=== PATIENT | male | born 1970 | race Caucasian/White ===

== ENCOUNTER → 2016-07-04 | Outpatient (CLI) | payer OTHER ==
[~2016-07-04] MED LIST: CIPR1TAB11 PO; DTRSR10 PO; FOLI-11 PO; LCTS240 PO; METH2.5T PO; METHTAB2 PO; PRED10TA PO; QUET200T2 PO
[2016-07-04 17:31] LABS: BASO % 0.3 %; BASO ABS # 0.02 K/uL (0-0.2); IG% 0.1 %; LYMPH % 12.5 %; LYMPH ABS # 0.91 K/uL (1.2-3.4); MEAN CELL VOLUME 89.8 fL (80-100); MEAN CORPUSCULAR HEMOGLOBIN 29.8 pg (25-34); MEAN CORPUSCULAR HGB CONC 33.2 g/dl (32-36); MEAN PLATELET VOLUME 11.7 fL (7.4-10.4); NEUT % 77.1 %; PLATELET COUNT 233 K/uL (130-400); RED BLOOD COUNT 4.23 M/uL (4.7-6.1); WHITE BLOOD COUNT 7.26 K/uL (4.8-10.8)
[2016-07-04 17:40] LABS: FERRITIN 279.6 ng/ml (8.0-388.0); MAGNESIUM 1.8 mg/dl (1.8-2.4)
[2016-07-04 22:01] LABS: COMPLETE YES
[2016-07-05 06:12] LABS: ESTIMATED AVERAGE GLUCOSE 134 mg/dl; HA1C FLAG Normal (Normal)
== END | disposition home or self-care (01) ==
LOC: C.LABSPEC 15:46
PROVIDERS: ATTEND Family Medicine
DX: D64.9 Anemia, unspecified (principal); E11.9 Type 2 diabetes mellitus without complications

== ENCOUNTER → 2016-08-13 | Outpatient (CLI) | payer OTHER ==
[2016-08-13 15:14] LABS: ALT/SGPT 29 U/L (12-78); BLOOD UREA NITROGEN 10 mg/dl (7-18); BUN/CREATININE RATIO 17.2 (10-20); CARBON DIOXIDE 25 mmol/L (21-32); CHLORIDE 98 mmol/L (98-107); CREATININE 0.57 mg/dl (0.60-1.40); GLUCOSE 106 mg/dl (70-99); MAGNESIUM 1.7 mg/dl (1.8-2.4); POTASSIUM 3.8 mmol/L (3.5-5.1); SODIUM 134 mmol/L (136-145)
[2016-08-13 15:17] LABS: ALB/GLOB RATIO 1.1 (0.9-2); ALKALINE PHOSPHATASE 58 U/L (45-117); AST/SGOT 13 U/L (15-37)
== END | disposition home or self-care (01) ==
LOC: C.LABSPEC 14:49
PROVIDERS: ATTEND Family Medicine
DX: N31.9 Neuromuscular dysfunction of bladder, unspecified (principal); G82.51 Quadriplegia, C1-C4 complete; E11.9 Type 2 diabetes mellitus without complications; I10 Essential (primary) hypertension; F52.9 Unspecified sexual dysfunction not due to a substance or known physiological condition

== ENCOUNTER → 2016-10-23 | Outpatient (CLI) | payer OTHER ==
[2016-10-23 10:37] LABS: ALT/SGPT 34 U/L (12-78); AST/SGOT 12 U/L (15-37); BLOOD UREA NITROGEN 6 mg/dl (7-18); CALCIUM 9.2 mg/dl (8.5-10.1); CARBON DIOXIDE 28 mmol/L (21-32); CHLORIDE 102 mmol/L (98-107); CREATININE 0.53 mg/dl (0.60-1.40); GLUCOSE 102 mg/dl (70-99); MAGNESIUM 1.9 mg/dl (1.8-2.4); POTASSIUM 3.8 mmol/L (3.5-5.1); SODIUM 139 mmol/L (136-145)
[2016-10-23 10:40] LABS: ALB/GLOB RATIO 1.1 (0.9-2); ALKALINE PHOSPHATASE 64 U/L (45-117)
[2016-10-23 11:01] LABS: ESTIMATED AVERAGE GLUCOSE 143 mg/dl; HA1C FLAG Normal (Normal)
--- NOTE | 2016-10-31 08:36 | CODING QUERY NO DIAGNOSIS ---
Valid Physician Order Needed 70 A valid physician order must be submitted in order to properly bill for the service(s) provided, including date of service(s), valid diagnosis, and physician signature. If these tests are done on a recurring basis the original physician order must be submitted in order to code and bill for the service(s) provided. Please fax us the original, signed physician order so that we may expedite billing to [phone] DOS 10/23/2016 * HEMOGLOBIN A1C * COMP METABOLIC * MAGNESIUM * CALCIUM, IONIZED Thank you [facility]
== END | disposition home or self-care (01) ==
LOC: C.LABSPEC 09:56
PROVIDERS: ATTEND Family Medicine
DX: E11.9 Type 2 diabetes mellitus without complications (principal); I10 Essential (primary) hypertension; G82.51 Quadriplegia, C1-C4 complete; Z43.6 Encounter for attention to other artificial openings of urinary tract

== ENCOUNTER → 2017-09-10 | Outpatient (CLI) | payer OTHER | END | disposition home or self-care (01) | LOC: C.LABSPEC 18:07 | PROVIDERS: ATTEND Family Medicine | DX: Z43.5 Encounter for attention to cystostomy (principal); N31.9 Neuromuscular dysfunction of bladder, unspecified; G82.51 Quadriplegia, C1-C4 complete ==

== ENCOUNTER → 2017-11-04 | Outpatient (CLI) | payer OTHER ==
--- NOTE | 2017-11-04 14:37 | DIAGNOSTIC IMAGING REPORT ---
KUB HISTORY: Follow-up study in a patient with nephrolithiasis N20.0 Calculus of [id number] COMPARISON: KUB 05/23/2008 FINDINGS: The bowel gas pattern is non-obstructive. Moderate stool volume of the left hemicolon. There is no organomegaly. Renal shadows are partially obscured by bowel gas. No definite nephrolithiasis or ureteral calculi are identified. Calcifications of the pelvis are redemonstrated suggesting phleboliths. No pneumoperitoneum or pneumatosis. No fracture. Soft tissue calcification lateral to the left hip measures up to 5.0 x 6.5 cm, not completely imaged. There is moderate joint space narrowing about the bilateral femoral acetabular joints. IMPRESSION: 1. Renal shadows are partially obscured by bowel gas. No definite nephrolithiasis or ureteral calculi identified. 2. Nonobstructive bowel gas pattern. 3. Moderate stool volume of the left hemicolon suggests constipation. Electronically signed by: Rachid Solano M.D. 11/04/2017 2:35 PM Dictated Date/Time: 11/04/2017 2:33 PM
--- NOTE | 2017-11-04 15:11 | DIAGNOSTIC IMAGING REPORT ---
EXAMINATION: RENAL ULTRASOUND CLINICAL HISTORY: N20.0 nephrolithiasis COMPARISON STUDY: 05/23/2008 FINDINGS: The right kidney measures 14.3 cm. The left kidney measures 15.2 cm. There is no evidence of hydronephrosis. There are no renal masses. There is no joint fluid catheter. No bladder lesions were delineated. Bilateral ureteral jets were identified. IMPRESSION : No evidence of hydronephrosis. No renal masses are visualized. Bilateral ureteral jets were demonstrated. Electronically signed by: Sohail Aguayo M.D. 11/04/2017 3:09 PM Dictated Date/Time: 11/04/2017 3:08 PM
== END | disposition home or self-care (01) ==
LOC: C.ULTR 13:56
PROVIDERS: ATTEND Urology
DX: N20.0 Calculus of kidney (principal)

== ENCOUNTER 2018-11-01 21:23 | Inpatient (IN) ==
[2018-11-01] MEDS ORDERED: IBUPROFEN 600 MG TAB PO STA (21:54)
[2018-11-01] MEDS ORDERED: SODIUM CHLORIDE 0.9% 1000ML 1,000 ML IV ONE (22:00)
[2018-11-01] MEDS ORDERED: CEFEPIME 2,000 MG/20 ML VIAL IV STA (22:00)
[2018-11-01 22:34] LABS: Appearance Urine Turbid (Clear); Bacteria Urine Automated 1+ (Negative); Bilirubin Urine Negative (Negative); Blood Urine Negative (Negative); Color Urine Yellow; Epithelial Cell Urine Auto >30 /lpf (0-5); Glucose Urine UA Negative (Negative); Ketones Urine Negative (Negative); Leukocyte Esterase Urine 3+ (Negative); Nitrite Urine Positive (Negative); RBC Urine Automated 0-4 /hpf (0-4); Specific Gravity Urine 1.018 (1.000-1.030); Urobilinogen Urine Negative (Negative); WBC Urine Automated >30 /hpf (0-5); pH Urine 7.5 (4.5-7.5)
[2018-11-01 22:37] LABS: Protein Urine Trace (Negative)
[2018-11-01 22:40] LABS: Basophils # (auto) 0.01 K/uL (0-0.2); Eosinophils # (auto) 0.06 K/uL (0-0.5); Eosinophils % (auto) 0.3 %; Hematocrit (blood only) 34.4 % (42-52); Hemoglobin 11.3 g/dL (14.0-18.0); Immature Granulocytes # (auto) 0.06 K/uL (0.00-0.02); Immature Granulocytes % (auto) 0.3 %; Lymphocytes # (auto) 0.78 K/uL (1.2-3.4); Lymphocytes % (auto) 3.7 %; Mean Corpuscular Hgb Conc 32.8 g/dL (32-36); Mean Platelet Volume 10.5 fL (7.4-10.4); Monocytes # (auto) 1.17 K/uL (0.11-0.59); Monocytes % (auto) 5.6 %; Neutrophils # (auto) 18.95 K/uL (1.4-6.5); Neutrophils % (auto) 90.1 %; Platelet Count 311 K/uL (130-400); RDW Coefficient of Variation 16.4 % (11.5-14.5); RDW Standard Deviation 51.6 fL (36.4-46.3); White Blood Count 21.03 K/uL (4.8-10.8)
[2018-11-01 22:50] LABS: Partial Thromboplastin Time 27.6 Seconds (21.0-31.0); Prothrombin Time 10.3 Seconds (9.0-12.0)
[2018-11-01 22:54] LABS: Albumin Level 2.9 gm/dl (3.4-5.0); BUN Creatinine Ratio 21.2 (10-20); Calcium 8.9 mg/dl (8.5-10.1); Creatinine Clr Calc Pharmacy 157.7 ml/min; Est GFR (African American) 131.7; Est GFR (Non-African American) 113.6; Magnesium 1.6 mg/dl (1.8-2.4); Potassium 3.5 mmol/L (3.5-5.1)
[2018-11-01 22:56] LABS: Albumin Globulin Ratio 0.9 (0.9-2); Bilirubin,Total 0.7 mg/dl (0.2-1); Globulin 3.4 gm/dl (2.5-4.0); Total Protein 6.3 gm/dl (6.4-8.2)
--- NOTE | 2018-11-01 22:57 | XRay Report ---
XR chest 1V portable HISTORY: 48 years-old Male Sepsis acute sepsis COMPARISON: Chest radiograph 05/11/2018 TECHNIQUE: Portable AP view of the chest FINDINGS: Cardiomediastinal and hilar silhouettes are within normal limits. The previously described 1.2 cm nod ular focus of the right upper lung appears to correlate with area of pulmonary vasculature. There is no pneumothorax, pleural effusion, focal airspace consolidation or overt pulmonary edema. Degenerativ e changes of the shoulders and spine. Fusion hardware of the cervical spine. IMPRESSION: No acute process. The above report was generated using voice recognition software. It may contain grammatical, syntax o r spelling errors. Electronically signed by: Rachid Solano M.D. 11/01/2018 10:56 PM
[2018-11-01] MEDS ORDERED: MAGNESIUM OXIDE 400 MG TAB PO STA (22:58)
[2018-11-01] MEDS ORDERED: MAGNESIUM SULFATE / D5W 1 GM/100 ML BAG IV ONE (22:58)
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
[2018-11-02] MEDS ORDERED: CARBOHYDRATES FOR HYPOGLYCEMIA PO PRN (02:34)
[2018-11-02] MEDS ORDERED: DEXTROSE 50% 50 ML SYRINGE IV PRN (02:34)
[2018-11-02] MEDS ORDERED: TRAMADOL HCL 50 MG TABLET PO PRN (02:34)
[2018-11-02] MEDS ORDERED: DICLOFENAC SOD 1% GEL 100 GM TUBE EXT PRN (02:34)
[2018-11-02] MEDS ORDERED: LACTULOSE SYRUP 20 GM/30 ML UDC PO PRN (02:34)
[2018-11-02] MEDS ORDERED: GLUCOSE 10 TABS/TUBE PO PRN (02:34)
[2018-11-02] MEDS ORDERED: GLUCAGON FOR INJ 1 MG VIAL SQ PRN (02:34)
[2018-11-02] MEDS ORDERED: ONDANSETRON INJ 2 MG/ML 2 ML VIAL IV PRN (02:34)
[2018-11-02] MEDS ORDERED: ACETAMINOPHEN 325 MG TAB PO PRN (02:34)
[2018-11-02] MEDS ORDERED: GLUCOSE 40% GEL 15 GM TUBE PO PRN (02:34)
[2018-11-02] MEDS: cefTRIAXone SODIUM 2,000 MG in DEXTROSE 5% 50 ML IV SCH (05:35)
[2018-11-02] MEDS ORDERED: BISACODYL 10 MG SUPP PR SCH (09:00)
[2018-11-02] MEDS: BACLOFEN 10 MG TAB PO SCH ×3 (09:11→20:30)
[2018-11-02] MEDS: LISINOPRIL 40 MG TAB PO SCH (09:12)
[2018-11-02] MEDS: predniSONE 10 MG TABLET PO SCH (09:12)
[2018-11-02] MEDS: ASCORBIC ACID 500 MG TAB PO SCH (09:12)
[2018-11-02] MEDS: POTASSIUM CHLORIDE 20 MEQ TABCR PO SCH (09:12)
[2018-11-02] MEDS: OXYBUTYNIN CHLORIDE 5 MG TAB PO SCH ×3 (09:12→20:31)
[2018-11-02] MEDS: MULTIVITAMIN TAB PO SCH (09:12)
[2018-11-02] MEDS: AMLODIPINE BESYLATE 5 MG TAB PO SCH (09:13)
[2018-11-02] MEDS: FOLIC ACID 1 MG TAB PO SCH (09:13)
[2018-11-02] MEDS: ATORVASTATIN 20 MG TAB PO SCH (09:13)
[2018-11-02] MEDS: COLLAGENASE OINT 30 GM TUBE EXT SCH (09:14)
[2018-11-02] MEDS: CLOBETASOL~ORDER AWAITING ACTION SCH ×2 (09:14→15:17)
[2018-11-02] MEDS: INSULIN ASPART 100 UNITS/ML 3 ML PEN SC SCH ×4 (09:22→20:32)
[2018-11-02] MEDS: ENOXAPARIN INJ 40 MG/0.4 ML SYR SQ SCH (09:37)
[2018-11-02] MEDS: METHENAMINE HIPPURATE 1 GM TAB PO SCH (20:32)
[2018-11-03] MEDS: CLOBETASOL~ORDER AWAITING ACTION SCH ×3 (01:02→14:48)
[2018-11-03] MEDS: cefTRIAXone SODIUM 2,000 MG in DEXTROSE 5% 50 ML IV SCH (06:15)
[2018-11-03] MEDS: AMLODIPINE BESYLATE 5 MG TAB PO SCH (08:14)
[2018-11-03] MEDS: BACLOFEN 10 MG TAB PO SCH ×2 (08:14→14:09)
[2018-11-03] MEDS: ATORVASTATIN 20 MG TAB PO SCH (08:14)
[2018-11-03] MEDS: predniSONE 10 MG TABLET PO SCH (08:15)
[2018-11-03] MEDS: MULTIVITAMIN TAB PO SCH (08:15)
[2018-11-03] MEDS: OXYBUTYNIN CHLORIDE 5 MG TAB PO SCH ×2 (08:15→14:09)
[2018-11-03] MEDS: POTASSIUM CHLORIDE 20 MEQ TABCR PO SCH (08:18)
[2018-11-03] MEDS: METHENAMINE HIPPURATE 1 GM TAB PO SCH (08:18)
[2018-11-03] MEDS: LISINOPRIL 40 MG TAB PO SCH (08:18)
[2018-11-03] MEDS: FOLIC ACID 1 MG TAB PO SCH (08:18)
[2018-11-03] MEDS: ASCORBIC ACID 500 MG TAB PO SCH (08:18)
[2018-11-03] MEDS: COLLAGENASE OINT 30 GM TUBE EXT SCH (08:19)
[2018-11-03] MEDS: ENOXAPARIN INJ 40 MG/0.4 ML SYR SQ SCH (08:19)
[2018-11-03] MEDS: INSULIN ASPART 100 UNITS/ML 3 ML PEN SC SCH ×2 (08:24→12:37)
[2018-11-03] MEDS ORDERED: NITROFURANTOIN MONOHYDRATE 100 MG CAP PO SCH (12:00)
[2018-11-03] MEDS ORDERED: NICOTINE 21 MG/24 HR TDSY TD SCH (13:15)
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
[2018-11-05] MEDS ORDERED: metHOTREXate sodium 2.5 MG TAB PO SCH (09:00)
[2018-11-08] MEDS ORDERED: ERGOCALCIFEROL 50,000 UNITS CAP PO SCH (09:00)
== END 2018-11-03 18:27 | disposition home health service (06) | DRG 689 ==
LOC: ED 21:23 → 4E 11-02 02:06 → SUATTDRO 11-02 02:29

== ENCOUNTER 2020-03-30 11:13 | Inpatient (IN) ==
[2020-03-30] MEDS ORDERED: CEFEPIME 2,000 MG/20 ML VIAL IV STA (12:08)
[2020-03-30] MEDS ORDERED: SODIUM CHLORIDE 0.9% 1000ML 1,000 ML IV SCH (12:15)
--- NOTE | 2020-03-30 12:26 | Emergency Department Note ---
Impression & Plan Leukocytosis, Quadriplegia, Abnormal abdominal CT scan, Acute UTI, Weakness ED Provider Note NAME: MARC PADILLA III AGE: 50 SEX: M : 1970 ARRIVES VIA: Ambulance INFORMANT: [Patient] ED PROVIDER(S): [Bartolome Shah MD] CHIEF COMPLAINT: Infection HISTORY OF PRESENT ILLNESS: The patient is a 50-year-old male who is quadriplegic. He does have some residual function off his arms. The patient has caregivers who come to the home. He has a suprapubic catheter all the time. The patient states that about 3 days ago he began to feel bloated, he began feeling discomfort in the abdomen and pressure in his pelvis. The pressure and discomfort are mild in severity. His urine started looking dark and mucus-like. The patient began developing a fever and weakness and body aches. He had chills. He states that he did see the [facility] and antibiotics were called to the pharmacy however, today, he felt too weak to even make it out of his home. He presents to the ER for help. The patient has been septic before from a UTI. He states he did have a coronavirus test yesterday but he has not had any coronavirus exposures. His results for the coronavirus test performed should be back in a few days. REVIEW OF SYSTEMS: See HPI for pertinent positives and negatives. A total of ten systems were reviewed and were otherwise negative. PMHx/PSHx: See Below SOCIAL HISTORY: See Below. PHYSICAL EXAM: GENERAL: Patient is in no acute distress. HEENT: No acute trauma, normocephalic atraumatic, mucous membranes moist, no nasal congestion, no scleral icterus. NECK: No stridor, no adenopathy, no meningismus, trachea is midline. LUNGS: No respiratory distress, no increased respiratory rate. Speaks in normal sentences. No accessory muscle use. HEART: Regular rate and rhythm, equal radial pulses bilaterally. ABDOMEN: Soft, nontender, bowel sounds positive, no hernias, no peritonitis. Suprapubic catheter noted. EXTREMITIES: No cyanosis, atrophy of his lower extremities and distal upper extremities consistent with his quadriplegia NEUROLOGIC: Oriented x 3, no lower extremity function. He has minimal function of his upper extremities. SKIN: No rash, no jaundice, no diaphoresis. DIFFERENTIAL DIAGNOSIS: Sepsis, UTI, pneumonia, metabolic, electrolyte abnormalities, cardiac sources, coronavirus, intracerebral event, toxicologic, neurologic, as well as other pathologies. EMERGENCY DEPARTMENT COURSE/PROCEDURES: ECG: Indication was weakness. The ECG shows a normal sinus rhythm with a rate of 75. The QTc is 415. There is no ST elevation, no PVCs. Continuous Cardiac Monitoring: An order was placed for continuous cardiac monitoring. The monitor shows a rate of 69 with normal sinus rhythm. Critical Care Note: I have personally spent greater than 46 minutes of critical care time in the direct management of this patient. This includes bedside care, interpretation of diagnostic studies, and testing, discussion with consultants, patient, and family members, and other required patient management activities. This 46 minutes is in excess of all separately billable procedures. MEDICAL DECISION MAKING: There is a moderate leukocytosis at 16,000, this of course is consistent with infection. The patient does have a mild anemia however, this looks to be baseline. Platelet count was normal. There was no coagulopathy. Sodium was low at 127, no kidney failure. Magnesium is low at 1.6. No worrisome liver enzyme elevation. Lactic acid level was not elevated making sepsis less likely. ECG shows a sinus rhythm, no acute ischemia. Cardiac enzyme testing x1 is not consistent with acute cardiac injury. Urinalysis is consistent with infection. Coronavirus testing was done and was negative. Chest film does not show pneumonia or CHF. Abdominal and pelvis CT suggested a possible sigmoid volvulus, there was no urinary obstruction. The patient received IV saline for hydration. He was given IV magnesium. He received IV imipenem. He was given oral Tylenol. The patient presents with a fever and concerns for UTI. He has been quite weak. He does appear to have a UTI as the cause for his fever. I do think his UTI findings explain his complaints. The findings of a potential sigmoid volvulus were not expected. I did consult GI and general surgery. All said and done, they do not believe this to be a true volvulus but more so an ileus. The patient is not going to undergo any type of emergent GI or surgical intervention. They recommended an NG tube however, the patient refused this intervention. The patient is being hospitalized for his urinary infection. He will be observed from a GI and surgical standpoint. The patient is aware so for all his findings. I did speak with case management. The on-call hospitalist was consulted. Past Med/Surg History Medical History Bladder stone Diabetes HLD (hyperlipidemia) HTN (hypertension) Hypertension Nephrolithiasis Neurogenic bladder Osteomyelitis Paraplegia with partial quadriplegia Pemphigoid Pemphigus foliaceus Sacral wound Suprapubic catheter Surgical History History of hip surgery History of suprapubic catheter Previous back surgery Family History (Updated 10/19/19 @ 10:30 by AXEL Newman) Mother Cancer Father Diabetes Grandfather Diabetes Other No significant family history Social History Smoking Status: Former smoker Hx Alcohol Use: No Hx Substance Use: No Preferred Language: Paragu[place] Communication Ability: Effective Interactive Media Specialist Required: No Beliefs That Will Affect Care: None Current Living Situation: Alone Feels Safe at Home: Yes during the past year weight has: decreased > 10 lbs Assistive Devices: Glasses Allergies Allergies Allergy/AdvReac Type Severity Reaction Status Date / Time Sulfa (Sulfonamide Allergy Swelling Verified 03/30/20 15:47 Antibiotics) of Lip/Tongue/Throat Home Meds Home Medications Medication Instructions Recorded Confirmed amlodipine 10 mg PO DAILY 05/11/18 03/30/20 atorvastatin 20 mg PO DAILY 05/11/18 03/30/20 baclofen 25 mg PO TID 05/11/18 03/30/20 folic acid 1 mg PO [id number] 05/11/18 03/30/20 metformin 1,000 mg PO AMPM 05/11/18 03/30/20 methenamine hippurate 1 g PO BID 05/11/18 03/30/20 methotrexate sodium 15 mg PO WK 05/11/18 03/30/20 oxybutynin chloride 5 mg PO TID 05/11/18 03/30/20 prednisone 10 mg PO DAILY 05/11/18 03/30/20 ascorbic acid (vitamin C) [Vitamin 500 mg PO DAILY 09/11/18 03/30/20 C] bisacodyl 10 mg ME Q OTHER DAY PRN 09/11/18 03/30/20 clobetasol 1 applic TOPICAL QS PRN 09/11/18 03/30/20 potassium chloride 20 meq PO DAILY 09/11/18 03/30/20 tramadol 50 mg tablet 50 mg PO Q8H PRN 10/04/18 03/30/20 ergocalciferol (vitamin D2) 50,000 unit PO WK 11/02/18 03/30/20 lactulose [Enulose] 10 ml PO Q OTHER DAY PRN 11/02/18 03/30/20 lisinopril 40 mg PO DAILY 11/02/18 03/30/20 famotidine 40 mg PO DAILY 03/30/20 03/30/20 glipizide 5 mg PO QAM 03/30/20 03/30/20 Previous Rx's Medication Instructions Recorded diclofenac sodium [Voltaren] See Rx Instructions .ROUTE 09/11/18 .COMPLEX #100 gm Results & Data (ED) Vital Signs Vital Signs - 24 hr 03/30/20 11:20 03/30/20 11:28 03/30/20 12:08 Temperature 37.6 C H Temperature Source Oral Pulse Rate 75 76 Pulse Rate from SpO2 Sensor Respiratory Rate 23 18 Respiratory Effort / Characteristics Non-Labored Non-Labored Respiratory Depth Normal Blood Pressure 120/66 120/66 Blood Pressure Mean 83 84 Blood Pressure Position Lying Pulse Oximetry 96 Oxygen Delivery Method Room Air Room Air Sepsis Recent Fever Within 48 Hours Yes Sepsis New/Unexplained Change in Mental Status No Sepsis Action Taken by Nursing No Action Required 03/30/20 12:30 03/30/20 12:38 03/30/20 12:42 Temperature Temperature Source Pulse Rate 73 Pulse Rate from SpO2 Sensor Respiratory Rate 23 Respiratory Effort / Characteristics Non-Labored Respiratory Depth Blood Pressure Blood Pressure Mean Blood Pressure Position Pulse Oximetry Oxygen Delivery Method Room Air Room Air Sepsis Recent Fever Within 48 Hours Sepsis New/Unexplained Change in Mental Status Sepsis Action Taken by Nursing 03/30/20 12:49 03/30/20 13:00 03/30/20 13:30 Temperature Temperature Source Pulse Rate 74 69 66 Pulse Rate from SpO2 Sensor 74 69 Respiratory Rate 24 24 Respiratory Effort / Characteristics Respiratory Depth Blood Pressure 171/110 H 164/99 H Blood Pressure Mean 144 126 Blood Pressure Position Pulse Oximetry 93 95 Oxygen Delivery Method Sepsis Recent Fever Within 48 Hours Sepsis New/Unexplained Change in Mental Status Sepsis Action Taken by Nursing 03/30/20 14:00 03/30/20 14:02 03/30/20 14:30 Temperature Temperature Source Pulse Rate 69 73 71 Pulse Rate from SpO2 Sensor Respiratory Rate 24 23 26 H Respiratory Effort / Characteristics Respiratory Depth Blood Pressure 177/92 H Blood Pressure Mean 115 Blood Pressure Position Pulse Oximetry Oxygen Delivery Method Sepsis Recent Fever Within 48 Hours Sepsis New/Unexplained Change in Mental Status Sepsis Action Taken by Nursing 03/30/20 14:31 03/30/20 15:00 03/30/20 15:01 Temperature Temperature Source Pulse Rate 80 68 66 Pulse Rate from SpO2 Sensor Respiratory Rate 24 26 H 25 H Respiratory Effort / Characteristics Respiratory Depth Blood Pressure 119/89 126/72 Blood Pressure Mean 98 88 Blood Pressure Position Pulse Oximetry Oxygen Delivery Method Sepsis Recent Fever Within 48 Hours Sepsis New/Unexplained Change in Mental Status Sepsis Action Taken by Nursing 03/30/20 15:30 03/30/20 15:32 03/30/20 16:00 Temperature Temperature Source Pulse Rate 74 72 68 Pulse Rate from SpO2 Sensor Respiratory Rate 17 23 Respiratory Effort / Characteristics Respiratory Depth Blood Pressure 168/109 H Blood Pressure Mean 136 Blood Pressure Position Pulse Oximetry Oxygen Delivery Method Sepsis Recent Fever Within 48 Hours Sepsis New/Unexplained Change in Mental Status Sepsis Action Taken by Nursing 03/30/20 16:01 03/30/20 16:30 Temperature Temperature Source Pulse Rate 67 69 Pulse Rate from SpO2 Sensor Respiratory Rate 23 24 Respiratory Effort / Characteristics Respiratory Depth Blood Pressure 156/93 H 170/87 H Blood Pressure Mean 111 97 Blood Pressure Position Pulse Oximetry Oxygen Delivery Method Sepsis Recent Fever Within 48 Hours Sepsis New/Unexplained Change in Mental Status Sepsis Action Taken by [facility] Medications Current Medication List: was personally reviewed by me Laboratory Data Attestation: I reviewed the patient's lab results. Result diagrams: 03/30/20 12:44 03/30/20 12:44 Lab Results 03/30/20 03/30/20 03/30/20 Range/Units 12:15 12:26 12:26 WBC (4.8-10.8) K/uL RBC (4.7-6.1) M/uL Hgb (14.0-18.0) g/dL Hct (42-52) % MCV (80-100) fL MCH (25-34) pg MCHC (32-36) g/dL RDW Std Deviation (36.4-46.3) fL RDW Coeff of Sandor (11.5-14.5) % Plt Count (130-400) K/uL MPV (7.4-10.4) fL Immature Gran % (Auto) % Neut % (Auto) % Lymph % (Auto) % Sullivan % (Auto) % Eos % (Auto) % Baso % (Auto) % Neut # (Auto) (1.4-6.5) K/uL Lymph # (Auto) (1.2-3.4) K/uL Sullivan # (Auto) (0.11-0.59) K/uL Eos # (Auto) (0-0.5) K/uL Baso # (Auto) (0-0.2) K/uL Immature Gran # (Auto) (0.00-0.02) K/uL PT (9.0-12.0) Seconds INR (0.9-1.1) APTT (21.0-31.0) Seconds PTT Ratio Sodium (136-145) mmol/L Potassium (3.5-5.1) mmol/L Chloride (98-107) mmol/L Carbon Dioxide (21-32) mmol/L Anion Gap (3-11) BUN (7-18) mg/dl Creatinine (0.6-1.4) mg/dl Est Cr Clr Drug Dosing ml/min Est GFR ( Amer) Est GFR (Non-Af Amer) BUN/Creatinine Ratio (10-20) Glucose (70-99) mg/dl Lactate (0.4-2.0) mmol/L Calcium (8.5-10.1) mg/dl Magnesium (1.8-2.4) mg/dl Total Bilirubin (0.2-1) mg/dl AST (15-37) U/L ALT (12-78) U/L Alkaline Phosphatase (45-117) U/L Troponin I (0-0.045) ng/ml Total Protein (6.4-8.2) gm/dl Albumin (3.4-5.0) gm/dl Globulin (2.5-4.0) gm/dl Albumin/Globulin Ratio (0.9-2) Procalcitonin (0-0.5) ng/ml Urine Color Yellow Urine Appearance Cloudy A (Clear) Urine pH 6.5 (4.5-7.5) Ur Specific Crane 1.010 (1.000-1.030) Urine Protein 1+ H (Negative) Urine Glucose (UA) Negative (Negative) Urine Ketones 2+ H (Negative) Urine Blood 3+ H (Negative) Urine Nitrite Positive A (Negative) Urine Bilirubin Negative (Negative) Urine Urobilinogen Negative (Negative) Ur Leukocyte Esterase 2+ H (Negative) Urine WBC (Auto) >30 H (0-5) /hpf Urine RBC (Auto) 5-10 H (0-4) /hpf U Hyaline Cast (Auto) 1-5 (0-5) /lpf U Epithel Cells (Auto) 5-10 H (0-5) /lpf Urine Bacteria (Auto) 2+ H (Negative) Urine Yeast Not Reportable Urine Sperm Present A (None Prsent) COVID-19 Eval Order Covid19 Done at [facility] COVID-19 PCR NEGATIVE (Negative) 03/30/20 03/30/20 03/30/20 Range/Units 12:44 12:44 12:44 WBC 16.13 H (4.8-10.8) K/uL RBC 4.18 L (4.7-6.1) M/uL Hgb 12.2 L (14.0-18.0) g/dL Hct 36.1 L (42-52) % MCV 86.4 (80-100) fL MCH 29.2 (25-34) pg MCHC 33.8 (32-36) g/dL RDW Std Deviation 50.1 H (36.4-46.3) fL RDW Coeff of Sandor 15.8 H (11.5-14.5) % Plt Count 216 (130-400) K/uL MPV 10.7 H (7.4-10.4) fL Immature Gran % (Auto) 0.2 % Neut % (Auto) 87.2 % Lymph % (Auto) 3.0 % Sullivan % (Auto) 9.5 % Eos % (Auto) 0.0 % Baso % (Auto) 0.1 % Neut # (Auto) 14.05 H (1.4-6.5) K/uL Lymph # (Auto) 0.49 L (1.2-3.4) K/uL Sullivan # (Auto) 1.53 H (0.11-0.59) K/uL Eos # (Auto) 0.00 (0-0.5) K/uL Baso # (Auto) 0.02 (0-0.2) K/uL Immature Gran # (Auto) 0.04 H (0.00-0.02) K/uL PT 10.9 (9.0-12.0) Seconds INR 1.0 (0.9-1.1) APTT 29.8 (21.0-31.0) Seconds PTT Ratio 1.1 Sodium 127 L (136-145) mmol/L Potassium 3.4 L (3.5-5.1) mmol/L Chloride 95 L (98-107) mmol/L Carbon Dioxide 22 (21-32) mmol/L Anion Gap 10.0 (3-11) BUN 6 L (7-18) mg/dl Creatinine 0.47 L (0.6-1.4) mg/dl Est Cr Clr Drug Dosing 245.9 ml/min Est GFR ( Amer) > 150.0 Est GFR (Non-Af Amer) 129.6 BUN/Creatinine Ratio 13.6 (10-20) Glucose 169 H (70-99) mg/dl Lactate (0.4-2.0) mmol/L Calcium 9.0 (8.5-10.1) mg/dl Magnesium 1.6 L (1.8-2.4) mg/dl Total Bilirubin 1.1 H (0.2-1) mg/dl AST 12 L (15-37) U/L ALT 21 (12-78) U/L Alkaline Phosphatase 54 (45-117) U/L Troponin I < 0.015 (0-0.045) ng/ml Total Protein 6.6 (6.4-8.2) gm/dl Albumin 3.1 L (3.4-5.0) gm/dl Globulin 3.5 (2.5-4.0) gm/dl Albumin/Globulin Ratio 0.9 (0.9-2) Procalcitonin (0-0.5) ng/ml Urine Color Urine Appearance (Clear) Urine pH (4.5-7.5) Ur Specific Crane (1.000-1.030) Urine Protein (Negative) Urine Glucose (UA) (Negative) Urine Ketones (Negative) Urine Blood (Negative) Urine Nitrite (Negative) Urine Bilirubin (Negative) Urine Urobilinogen (Negative) Ur Leukocyte Esterase (Negative) Urine WBC (Auto) (0-5) /hpf Urine RBC (Auto) (0-4) /hpf U Hyaline Cast (Auto) (0-5) /lpf U Epithel Cells (Auto) (0-5) /lpf Urine Bacteria (Auto) (Negative) Urine Yeast Urine Sperm (None Prsent) COVID-19 Eval Order COVID-19 PCR (Negative) 03/30/20 03/30/20 Range/Units 12:44 12:44 WBC (4.8-10.8) K/uL RBC (4.7-6.1) M/uL Hgb (14.0-18.0) g/dL Hct (42-52) % MCV (80-100) fL MCH (25-34) pg MCHC (32-36) g/dL RDW Std Deviation (36.4-46.3) fL RDW Coeff of Sandor (11.5-14.5) % Plt Count (130-400) K/uL MPV (7.4-10.4) fL Immature Gran % (Auto) % Neut % (Auto) % Lymph % (Auto) % Sullivan % (Auto) % Eos % (Auto) % Baso % (Auto) % Neut # (Auto) (1.4-6.5) K/uL Lymph # (Auto) (1.2-3.4) K/uL Sullivan # (Auto) (0.11-0.59) K/uL Eos # (Auto) (0-0.5) K/uL Baso # (Auto) (0-0.2) K/uL Immature Gran # (Auto) (0.00-0.02) K/uL PT (9.0-12.0) Seconds INR (0.9-1.1) APTT (21.0-31.0) Seconds PTT Ratio Sodium (136-145) mmol/L Potassium (3.5-5.1) mmol/L Chloride (98-107) mmol/L Carbon Dioxide (21-32) mmol/L Anion Gap (3-11) BUN (7-18) mg/dl Creatinine (0.6-1.4) mg/dl Est Cr Clr Drug Dosing ml/min Est GFR ( Amer) Est GFR (Non-Af Amer) BUN/Creatinine Ratio (10-20) Glucose (70-99) mg/dl Lactate 1.7 (0.4-2.0) mmol/L Calcium (8.5-10.1) mg/dl Magnesium (1.8-2.4) mg/dl Total Bilirubin (0.2-1) mg/dl AST (15-37) U/L ALT (12-78) U/L Alkaline Phosphatase (45-117) U/L Troponin I (0-0.045) ng/ml Total Protein (6.4-8.2) gm/dl Albumin (3.4-5.0) gm/dl Globulin (2.5-4.0) gm/dl Albumin/Globulin Ratio (0.9-2) Procalcitonin 0.30 (0-0.5) ng/ml Urine Color Urine Appearance (Clear) Urine pH (4.5-7.5) Ur Specific Crane (1.000-1.030) Urine Protein (Negative) Urine Glucose (UA) (Negative) Urine Ketones (Negative) Urine Blood (Negative) Urine Nitrite (Negative) Urine Bilirubin (Negative) Urine Urobilinogen (Negative) Ur Leukocyte Esterase (Negative) Urine WBC (Auto) (0-5) /hpf Urine RBC (Auto) (0-4) /hpf U Hyaline Cast (Auto) (0-5) /lpf U Epithel Cells (Auto) (0-5) /lpf Urine Bacteria (Auto) (Negative) Urine Yeast Urine Sperm (None Prsent) COVID-19 Eval Order COVID-19 PCR (Negative) Administered Medications Discontinued Medications Acetaminophen (Acetaminophen 500 Mg Tab) 1,000 mg PO NOW STA Stop: 03/30/20 12:37 Last Admin: 03/30/20 14:31 Dose: 1,000 mg Documented by: [id number] Sodium Chloride (Nss 1000ml) 1,000 mls @ 999 mls/hr IV .Q1H1M SAHIL Stop: 03/30/20 13:15 Last Infusion: 03/30/20 15:35 Dose: 0 mls/hr Documented by: [id number] Admin: 03/30/20 14:31 Dose: 999 mls/hr Documented by: [id number] Magnesium Sulfate/Dextrose (Magnesium Sulfate / D5w) 1 gm in 100 mls @ 100 mls/hr IV NOW STA Stop: 03/30/20 14:26 Last Infusion: 03/30/20 15:31 Dose: 0 mls/hr Documented by: [id number] Admin: 03/30/20 14:31 Dose: 100 mls/hr Documented by: [id number] Imipenem/Cilastatin Sodium 1, (000 mg/ Dextrose) 270 mls @ 250 mls/hr IV NOW STA Stop: 03/30/20 14:41 Last Infusion: 03/30/20 15:45 Dose: 0 mls/hr Documented by: [id number] Admin: 03/30/20 14:31 Dose: 250 mls/hr Documented by: [id number] Potassium Chloride/Sodium Chloride (Nss+Kcl 20 Meq 1000ml) Confirm Administered Dose 20 meq IV .VeryLastRoom-Photocollect ONE Stop: 03/30/20 18:00 Last Admin: 03/30/20 18:05 Dose: 20 meq Documented by: [id number] Imaging Data Radiologist's Impression: CT SCAN OF THE ABDOMEN AND PELVIS WITHOUT IV CONTRAST CLINICAL HISTORY: Generalized abdominal pain. COMPARISON STUDY: Abdominal radiograph dated 05/23/2008. Renal ultrasound dated 03/05/2018. Pelvic MRI dated 10/18/2018. TECHNIQUE: CT scan of the abdomen and pelvis is performed from the lung bases to the proximal femora. Images are reviewed in the axial, sagittal, and coronal planes. IV contrast was not administered for this examination. Note that the examination is suboptimal without oral and IV contrast. A dose lowering technique was utilized adhering to the principles of ALARA. The examination is degraded by large body habitus, and by streak artifact from the body wall abutting the CT gantry. There is also streak artifact from the arms which could not be elevated above the abdomen as well as motion artifact. CT DOSE: 1814.15 mGy.cm FINDINGS: Lung bases: The heart is normal in size and without pericardial effusion. The lung bases are clear noting dependent atelectasis. Liver: The unenhanced liver is enlarged, measuring 20.6 cm in length. The liver demonstrates diffusely diminished attenuation consistent with severe hepatic steatosis. Fatty sparing is seen adjacent to gallbladder fossa. There is no intrahepatic biliary ductal dilatation. Gallbladder: Unremarkable. Spleen: Normal in size and attenuation. Pancreas: The unenhanced pancreas is grossly unremarkable. Adrenal glands: Unremarkable. Kidneys: The unenhanced kidneys are normal in size and without hydronephrosis. There are least 3 nonobstructing right renal calculi measuring up to 8 mm. No left renal calculi are identified. There is no evidence of contour deforming renal mass lesion. Abdominal vasculature: The abdominal aorta is normal in course and caliber noting moderate atherosclerotic calcification. Bowel: The sigmoid colon is redundant. There is significant gaseous distention of the right colon. There is focal twisting suggested in the distal sigmoid colon on image #[id number]. Sigmoid volvulus is not excluded. No significant wall thickening is seen. The small bowel loops are normal in caliber. There is no pneumatosis intestinalis or portal venous gas. The appendix is well-visualized and normal. Peritoneum: There is trace fluid in the paracolic gutters. No intraperitoneal free air is seen. There is marked fatty atrophy of the iliopsoas, pelvic, and upper thigh musculature. Lymphadenopathy: None. Pelvic viscera: The bladder is decompressed around a suprapubic catheter and cannot be evaluated. The prostate gland is diminutive versus surgically absent. The seminal vesicles are normal as visualized. Skeletal structures: The skeletal structures are osteopenic. There are bilateral pars defects at L5. Mild to moderate lumbosacral spondylosis is observed. Degenerative change is seen in the hips. Soft tissue calcification is present around the left hip. No lytic or blastic lesions are seen. IMPRESSION: 1. Streak and motion compromised examination. 2. There is significant gaseous distention of the right colon. The sigmoid colon is redundant, and focal twisting of the sigmoid is suggested in the midline pelvis. The appearance is concerning for sigmoid volvulus. Surgical consultation is advised. 3. The small bowel loops are normal in caliber. 4. Right-sided nephrolithiasis. 5. Hepatomegaly and hepatic steatosis. 6. Trace free fluid is noted in the paracolic gutters. XR chest 1V portable CLINICAL HISTORY: SEPSIS COMPARISON STUDY: 11/01/2018 FINDINGS: The heart is enlarged. There is no failure. There is no focal pulmonary consolidation. There are no pleural effusions. Postsurgical changes are present within the cervical spine.[ IMPRESSION: Mild cardiomegaly. No acute findings. Blood Pressure Blood Pressure Findings: Elevated blood pressure Blood Pressure Disposition: further management by hospitalist Discharge Plan Visit Data Chief Complaint: Illness ED Provider: Bartolome Shah Discharge Problem: Leukocytosis, Quadriplegia, Abnormal abdominal CT scan, Acute UTI, Weakness Patient Disposition: Admitted As Inpatient Condition: Fair Discharge Instructions Interventions: ED Discharge Assessment Last Done: 03/30/20 17:52 Discharge Problem: Leukocytosis Qualifiers: Leukocytosis type: unspecified Qualified Code(s): D72.829 - Elevated white blood cell count, unspecified
[2020-03-30] MEDS ORDERED: ACETAMINOPHEN 500 MG TAB PO STA (12:36)
[2020-03-30 13:05] LABS: Basophils # (auto) 0.02 K/uL (0-0.2); Basophils % (auto) 0.1 %; Hematocrit (blood only) 36.1 % (42-52); Hemoglobin 12.2 g/dL (14.0-18.0); Immature Granulocytes # (auto) 0.04 K/uL (0.00-0.02); Immature Granulocytes % (auto) 0.2 %; Lymphocytes # (auto) 0.49 K/uL (1.2-3.4); Mean Corpuscular Hemoglobin 29.2 pg (25-34); Mean Corpuscular Hgb Conc 33.8 g/dL (32-36); Mean Corpuscular Volume 86.4 fL (80-100); Mean Platelet Volume 10.7 fL (7.4-10.4); Monocytes # (auto) 1.53 K/uL (0.11-0.59); Monocytes % (auto) 9.5 %; Neutrophils # (auto) 14.05 K/uL (1.4-6.5); Neutrophils % (auto) 87.2 %; Platelet Count 216 K/uL (130-400); RDW Coefficient of Variation 15.8 % (11.5-14.5); RDW Standard Deviation 50.1 fL (36.4-46.3); Red Blood Count 4.18 M/uL (4.7-6.1); White Blood Count 16.13 K/uL (4.8-10.8)
[2020-03-30 13:15] LABS: Partial Thromboplastin Ratio 1.1; Partial Thromboplastin Time 29.8 Seconds (21.0-31.0); Prothrombin Time 10.9 Seconds (9.0-12.0)
[2020-03-30 13:20] LABS: Alanine Aminotransferase 21 U/L (12-78); Albumin Level 3.1 gm/dl (3.4-5.0); Aspartate Aminotransferase 12 U/L (15-37); BUN Creatinine Ratio 13.6 (10-20); Blood Urea Nitrogen 6 mg/dl (7-18); Carbon Dioxide 22 mmol/L (21-32); Chloride 95 mmol/L (98-107); Creatinine Clr Calc Pharmacy 245.9 ml/min; Est GFR (African American) > 150.0; Est GFR (Non-African American) 129.6; Glucose 169 mg/dl (70-99); Magnesium 1.6 mg/dl (1.8-2.4); Potassium 3.4 mmol/L (3.5-5.1); Sodium 127 mmol/L (136-145)
[2020-03-30 13:21] LABS: Appearance Urine Cloudy (Clear); Bacteria Urine Automated 2+ (Negative); Bilirubin Urine Negative (Negative); Blood Urine 3+ (Negative); Color Urine Yellow; Glucose Urine UA Negative (Negative); Ketones Urine 2+ (Negative); Leukocyte Esterase Urine 2+ (Negative); Nitrite Urine Positive (Negative); Protein Urine 1+ (Negative); Urobilinogen Urine Negative (Negative); WBC Urine Automated >30 /hpf (0-5); pH Urine 6.5 (4.5-7.5)
[2020-03-30 13:25] LABS: Albumin Globulin Ratio 0.9 (0.9-2); Alkaline Phosphatase 54 U/L (45-117); Bilirubin,Total 1.1 mg/dl (0.2-1); Globulin 3.5 gm/dl (2.5-4.0); Total Protein 6.6 gm/dl (6.4-8.2); Troponin I < 0.015 ng/ml (0-0.045)
[2020-03-30] MEDS ORDERED: MAGNESIUM SULFATE / D5W 1 GM/100 ML BAG IV STA (13:27)
[2020-03-30 13:37] LABS: Sperm Urine Present (None Prsent)
[2020-03-30] MEDS ORDERED: IMIPENEM/CILASTATIN SODIUM 1,000 MG in DEXTROSE 5% 250 ML IV STA (13:37)
--- NOTE | 2020-03-30 14:50 | CT Scan Report ---
CT SCAN OF THE ABDOMEN AND PELVIS WITHOUT IV CONTRAST CLINICAL HISTORY: Generalized abdominal pain. COMPARISON STUDY: Abdominal radiograph dated 05/23/2008. Renal ultrasound dated 03/05/2018. Pelvic MRI dated 10/18/2018. TECHNIQUE: CT scan of the abdomen and pelvis is performed from the lung bases to the proximal femora. Images are reviewed in the axial, sagittal, and coronal planes. IV contrast was not administered for this examination. Note that the examination is suboptimal without oral and IV contrast. A dose lower ing technique was utilized adhering to the principles of ALARA. The examination is degraded by large body habitus, and by streak artifact from the body wall abutting the CT gantry. There is also streak artifact from the arms which could not be elevated above the abdomen as well as motion artifact. CT DOSE: 1814.15 mGy.cm FINDINGS: Lung bases: The heart is normal in size and without pericardial effusion. The lung bases are clear no ting dependent atelectasis. Liver: The unenhanced liver is enlarged, measuring 20.6 cm in length. The liver demonstrates diffusel y diminished attenuation consistent with severe hepatic steatosis. Fatty sparing is seen adjacent to gallbladder fossa. There is no intrahepatic biliary ductal dilatation. Gallbladder: Unremarkable. Spleen: Normal in size and attenuation. Pancreas: The unenhanced pancreas is grossly unremarkable. Adrenal glands: Unremarkable. Kidneys: The unenhanced kidneys are normal in size and without hydronephrosis. There are least 3 nono bstructing right renal calculi measuring up to 8 mm. No left renal calculi are identified. There is n o evidence of contour deforming renal mass lesion. Abdominal vasculature: The abdominal aorta is normal in course and caliber noting moderate atheroscle rotic calcification. Bowel: The sigmoid colon is redundant. There is significant gaseous distention of the right colon. Th ere is focal twisting suggested in the distal sigmoid colon on image #[id number]. Sigmoid volvulus is not ex cluded. No significant wall thickening is seen. The small bowel loops are normal in caliber. There is no pneumatosis intestinalis or portal venous gas. The appendix is well-visualized and normal. Peritoneum: There is trace fluid in the paracolic gutters. No intraperitoneal free air is seen. There is marked fatty atrophy of the iliopsoas, pelvic, and upper thigh musculature. Lymphadenopathy: None. Pelvic viscera: The bladder is decompressed around a suprapubic catheter and cannot be evaluated. The prostate gland is diminutive versus surgically absent. The seminal vesicles are normal as visualized . Skeletal structures: The skeletal structures are osteopenic. There are bilateral pars defects at L5. Mild to moderate lumbosacral spondylosis is observed. Degenerative change is seen in the hips. Soft t issue calcification is present around the left hip. No lytic or blastic lesions are seen. IMPRESSION: 1. Streak and motion compromised examination. 2. There is significant gaseous distention of the right colon. The sigmoid colon is redundant, and fo aquiles twisting of the sigmoid is suggested in the midline pelvis. The appearance is concerning for sigm oid volvulus. Surgical consultation is advised. 3. The small bowel loops are normal in caliber. 4. Right-sided nephrolithiasis. 5. Hepatomegaly and hepatic steatosis. 6. Trace free fluid is noted in the paracolic gutters. 7. Additional findings as above. ACT 112: Negative or not required by law. Electronically signed by: Bartolome Mckay M.D. 03/30/2020 2:49 PM
--- NOTE | 2020-03-30 15:10 | XRay Report ---
XR chest 1V portable CLINICAL HISTORY: SEPSIS COMPARISON STUDY: 11/01/2018 FINDINGS: The heart is enlarged. There is no failure. There is no focal pulmonary consolidation. Ther e are no pleural effusions. Postsurgical changes are present within the cervical spine.[ IMPRESSION: Mild cardiomegaly. No acute findings. ACT 112: Negative or not required by law. Electronically signed by: Sohail Aguayo M.D. 03/30/2020 3:08 PM
--- NOTE | 2020-03-30 15:43 | Gastrointestinal Consultation ---
Date of Consultation March 30, 2020 Assessment & Plan (1) Abnormal CT of the abdomen: Abdominal distention likely from ileus vs. an obstructing lesion. Rec: 1. Surgical consult 2. NG for stomach decompression. 3. NPO until abdominal distention improves. 4. Appreciate primary services correction of electrolyte derangements. Please try to correct K to >4.0 as this improves motility as well correction of Sodium. 5. Judicious use of narcotics as they will worsen ileus. 6. Currently no clear indication for endoscopy intervention. Present on Admission?: Yes Supervising Physician Co-Signing Physician Notes Attending attestation I have seen, examined this patient, and agree with the findings and above by our mid-level provider AXEL Nieves, with the following additions: -Patient with presentation for an infectious UTI, advertently was found to have abdominal distention. He states that he has had this for about 3 to 5 days. He denies any abdominal pain, is passing gas from below as well as having bowel movements. He was noted to have a CT scan that showed a very redundant sigmoid looked like it was flipped back on itself but specifically after careful review with 3 radiologist did not show any twisting of the mesentery suggestive of a sigmoid volvulus. Lactate is normal, he is having no abdominal pain, I think it is reasonable to decompress him with an NG tube correct his electrolytes and treat his infection which is the likely etiology of an ileus. I would do serial x-rays on him 1 later tonight as well as in the morning to follow his imaging. I also would contact surgery or us immediately if he develops abdominal pain. For the interim I would maintain on n.p.o. status. Dr. Lal will be covering this weekend with any questions History of Present Illness Reason for Consultation: ? sigmoid volvulus on imaging Requesting Physician: Dr. Shah Attending Physician: Dr. Shah History of Present Illness Mr. 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 He is a pt of [facility] who presented to the ED today for weakness and UTI symptoms (dark urine, fever). He has had nausea, increased belching and abdominal distention for about 3-4 days. He also passed 4 liquid brown BMs today. Typically, he has to give himself a suppository to empty out. He does this every 2 days and was due today but did not do this as he was already passing BMs. No blood in BMs, no vomiting. He does have a feeling of mild SOB like his abdomen is pushing up on the chest. Because of UTI symptoms, he activated EMS who transported him here to [facility] ED. On arrival in the ED, Labs were suggestive of a UTI and CT suggested a possible sigmoid volvulus. He reports a fever to 101 and he has leukocytosis to 16, though he is on chronic prednisone (for pemphigus foliaceous). Films were reviewed: there was no transition zone; max colon diameter was 7cm. He has electrolyte derangements: Na 127, K 3.4, Mg 1.6. On exam, he has BS throughout, is distended but not taunt, and is tender over the entire abdomen. He has not been able to take foods by mouth for a few days because of poor appetite and nausea, though was able to drink liquids until last night when he was too weak. Allergies Allergy/AdvReac Type Severity Reaction Status Date / Time Sulfa (Sulfonamide Allergy Swelling Verified 03/30/20 15:47 Antibiotics) of Lip/Tongue/Throat Home Medications Home Medications Medication Instructions Recorded Confirmed Type amlodipine 10 mg PO DAILY 05/11/18 03/30/20 History atorvastatin 20 mg PO DAILY 05/11/18 03/30/20 History baclofen 25 mg PO TID 05/11/18 03/30/20 History folic acid 1 mg PO 6XWK 05/11/18 03/30/20 History metformin 1,000 mg PO AMPM 05/11/18 03/30/20 History methenamine hippurate 1 g PO BID 05/11/18 03/30/20 History methotrexate sodium 15 mg PO WK 05/11/18 03/30/20 History oxybutynin chloride 5 mg PO TID 05/11/18 03/30/20 History prednisone 10 mg PO DAILY 05/11/18 03/30/20 History ascorbic acid (vitamin C) [Vitamin 500 mg PO DAILY 09/11/18 03/30/20 History C] bisacodyl 10 mg FL Q OTHER DAY PRN 09/11/18 03/30/20 History clobetasol 1 applic TOPICAL QS PRN 09/11/18 03/30/20 History diclofenac sodium [Voltaren] See Rx Instructions .ROUTE 09/11/18 03/30/20 Rx .COMPLEX #100 gm potassium chloride 20 meq PO DAILY 09/11/18 03/30/20 History tramadol 50 mg tablet 50 mg PO Q8H PRN 10/04/18 03/30/20 History ergocalciferol (vitamin D2) 50,000 unit PO WK 11/02/18 03/30/20 History lactulose [Enulose] 10 ml PO Q OTHER DAY PRN 11/02/18 03/30/20 History lisinopril 40 mg PO DAILY 11/02/18 03/30/20 History famotidine 40 mg PO DAILY 03/30/20 03/30/20 History glipizide 5 mg PO QAM 03/30/20 03/30/20 History Patient History Medical History Bladder stone Diabetes HLD (hyperlipidemia) HTN (hypertension) Hypertension Nephrolithiasis Neurogenic bladder Osteomyelitis Paraplegia with partial quadriplegia Pemphigoid Pemphigus foliaceus Sacral wound Suprapubic catheter Surgical History History of hip surgery History of suprapubic catheter Previous back surgery Family History (Updated 10/19/19 @ 10:30 by AXEL Newman) Mother Cancer Father Diabetes Grandfather Diabetes Other No significant family history Social History Smoking Status: Never smoker Hx Alcohol Use: No Hx Substance Use: No Preferred Language: Andorran Communication Ability: Effective Sommelier Required: No Beliefs That Will Affect Care: None Current Living Situation: Alone Feels Safe at Home: Yes during the past year weight has: decreased > 10 lbs Assistive Devices: Glasses Review of Systems Review of Systems: ROS: Gen: + weakness, + fevers; No weight loss Eyes: No eye redness, or pain, no recent vision changes Resp: + a little SOB, no cough Cardio: No palpitations/irregular beats, no chest pain GI: Per HPI, otherwise (-). : Denies pain on urination Skin: No jaundice, itching or new rashes Physical Exam Constitutional: WD/WN, vitals as above Quadriplegic with wasting of the lower extremities; Excessive Belching Eyes: PERRL, conjunctivae normal, anicteric sclerae ENMT: external ear and nose normal, oropharynx normal Neck: trachea midline, no thyromegaly Respiratory: normal respiratory effort, lungs clear to auscultation Cardiovascular: RRR, no murmur, no edema Vessels: no JVD Elevated BP: 168/109 Gastrointestinal (Abdomen): Inspection/Auscultation: + abdomen distended and normal bowel sounds (with some tympanic sounds as well) Percussion/Palpation: + abdomen tender; no guarding Skin: no rashes, warm and dry Neurologic: PERRL, EOMI, accommodation nl, no face palsy, no dysarthria Psychiatric: A+Ox3, euthymic affect Cognition: recent memory grossly intact Judgement: good judgement Lymphatic: no cervical or axillary lymphadenopathy Results & Data ([facility]) Vital Signs (Past 12 Hours) Vital Signs Temp Pulse Resp BP Pulse Ox 03/30/20 13:00 69 164/99 H 95 03/30/20 12:49 74 24 171/110 H 93 03/30/20 12:42 73 23 03/30/20 11:28 37.6 C H 76 18 120/66 96 03/30/20 11:20 75 23 120/66 Laboratory Results WBC 16, Hb 12, HCt 36, plt 216, Na 127, K 3.4, BUN 6, Cr 0.4. Diagnostic Findings Non contrast CT abd/pelvis: 1. Streak and motion compromised examination. 2. There is significant gaseous distention of the right colon. The sigmoid colon is redundant, and focal twisting of the sigmoid is suggested in the midline pelvis. The appearance is concerning for sigmoid volvulus. Surgical consultation is advised. 3. The small bowel loops are normal in caliber. 4. Right-sided nephrolithiasis. 5. Hepatomegaly and hepatic steatosis. 6. Trace free fluid is noted in the paracolic gutters. 7. Additional findings as above.
--- NOTE | 2020-03-30 16:04 | History & Physical Report ---
Date of Service March 30, 2020 Assessment & Plan (1) Abnormal CT of the abdomen: Concern for sigmoid volvulus. Review by gastroenterology feel this is more ileus and will attempt decompression with NG tube and n.p.o. status. (2) Abdominal pain: As above. (3) UTI (urinary tract infection): Imipenem IV 500 mg every 6 hourly Consult urology for possible need to change suprpubic catheter. (4) Anemia: Chronic. At baseline. Will monitor. (5) Acute hyponatremia: Secondary to dehydration. Replace with IV NSS. (6) Hypokalemia: K 3.4, replace in IV fluids. (7) Hypomagnesemia: Mg 1.6. Possibly contributing. Mg sulphate IV 2g Repeat level with am labs. (8) Quadriplegia: (9) Diabetes: HbA1C with AM labs. Hold home meds Start Lantus 10 units BID Novolog sliding scale, aim 100-140, correction 30mg/dL/unit, 1 unit per 10 g carbs. (10) HTN (hypertension): Continue amlodipine 10 mg PO daily, lisinopril 40mg PO daily (11) HLD (hyperlipidemia): Continue atorvastatin 20mg PO daily (12) DVT prophylaxis: Lovenox 40mg SQ BID Admission and Anticipated Discharge Date Admission Date: March 30, 2020 History of Present Illness Chief Complaint: Abdominal pain, bloating, chest in bowels, fatigue, chills. Primary Care Provider: NO PCP Jhonatan Henry is a 50-year-old male with quadraplegia and chronic suprapubic catheter who presents to the ER with abdominal pain, bloating, change in bowels, fatigue, chills. His symptoms started 3-4 days ago. Progressively getting worse. Has history of recurrent UTIs with prior pseudomonas. His PCP prescribed antibiotics but he was unable to pick these up today. He felt similar to having prior UTIs but no suprapubic pain or measured fever. He does have dark, thicker/mucus urine. He was experiencing chills and generalized weakness this morning which prompting his ER visit via EMS. With regard to his bowel. He reports needing to give himself an enema as needed to help with bowel movements. He took an exema earlier today and had 4 bowel movements. He denies any vomiting but does feel midly nauseous. No heartburn or chest pain. In the ER UA was suggestive of UTI with history of pseudomonas therefore he was started on imipenem. CT was concerning for sigmoid voluvulus and currently he is being evaluated by GI and general surgery who have consulted by ER physician. Allergies Allergy/AdvReac Type Severity Reaction Status Date / Time Sulfa (Sulfonamide Allergy Swelling Verified 03/30/20 15:47 Antibiotics) of Lip/Tongue/Throat lactose AdvReac Verified 03/31/20 16:47 Home Medications Home Medications Medication Instructions Recorded Confirmed Type amlodipine 10 mg PO DAILY 05/11/18 03/30/20 History atorvastatin 20 mg PO DAILY 05/11/18 03/30/20 History baclofen 25 mg PO TID 05/11/18 03/30/20 History folic acid 1 mg PO 6XWK 05/11/18 03/30/20 History metformin 1,000 mg PO AMPM 05/11/18 03/30/20 History methenamine hippurate 1 g PO BID 05/11/18 03/30/20 History methotrexate sodium 15 mg PO WK 05/11/18 03/30/20 History oxybutynin chloride 5 mg PO TID 05/11/18 03/30/20 History prednisone 10 mg PO DAILY 05/11/18 03/30/20 History ascorbic acid (vitamin C) [Vitamin 500 mg PO DAILY 09/11/18 03/30/20 History C] bisacodyl 10 mg [place] Q OTHER DAY PRN 09/11/18 03/30/20 History clobetasol 1 applic TOPICAL QS PRN 09/11/18 03/30/20 History diclofenac sodium [Voltaren] See Rx Instructions .ROUTE 09/11/18 03/30/20 Rx .COMPLEX #100 gm potassium chloride 20 meq PO DAILY 09/11/18 03/30/20 History tramadol 50 mg tablet 50 mg PO Q8H PRN 10/04/18 03/30/20 History ergocalciferol (vitamin D2) 50,000 unit PO WK 11/02/18 03/30/20 History lactulose [Enulose] 10 ml PO Q OTHER DAY PRN 11/02/18 03/30/20 History lisinopril 40 mg PO DAILY 11/02/18 03/30/20 History famotidine 40 mg PO DAILY 03/30/20 03/30/20 History glipizide 5 mg PO QAM 03/30/20 03/30/20 History Past Med/Surg History Medical History Bladder stone Diabetes HLD (hyperlipidemia) HTN (hypertension) Hypertension Nephrolithiasis Neurogenic bladder Osteomyelitis Paraplegia with partial quadriplegia Pemphigoid Pemphigus foliaceus Sacral wound Suprapubic catheter Surgical History History of hip surgery History of suprapubic catheter Previous back surgery Family History Mother Cancer Father Diabetes Grandfather Diabetes Other No significant family history Social History Smoking Status: Former smoker Hx Alcohol Use: No Hx Substance Use: No Preferred Language: Turkmen Communication Ability: Effective Supply Cataloguer Required: No Beliefs That Will Affect Care: None Current Living Situation: Alone Feels Safe at Home: Yes during the past year weight has: decreased > 10 lbs Assistive Devices: None Review of Systems Review of Systems: All systems reviewed & are unremarkable except as noted in HPI & below Physical Exam Constitutional: well developed and + morbidly obese; + not well nourished and no acute distress Eyes: + anicteric sclerae; normal pupil size ENMT: Ears: no external ear abnormality Nose: no external nose abnormality Mouth: + dry oral mucous membranes Neck: normal visual inspection and trachea midline Respiratory: normal respiratory effort; no respiratory distress Auscultation: + diminished lung sounds (bibasal) Cardiovascular: Rate/Rhythm: regular rate and regular rhythm Heart Sounds: no murmur Extremities: normal capillary refill and + pedal edema (1+ to knees, equal b/l) Gastrointestinal (Abdomen): Inspection/Auscultation: + abdomen distended and + hypoactive bowel sounds Percussion/Palpation: + abdomen tender (generalized) and abdomen soft; no guarding and abdomen not rigid Skin: no rashes, warm and dry (no areas of cellulitis, no open pressure ulcers seen on back) Neurologic: + focal motor deficit (nill acute, b/l LE paraplegia, UE distal weakness) and awake; not confused Psychiatric: Orientation: alert and oriented x 3 Affect: euthymic affect Genitourinary: no CVA tenderness Results & Data Results & Data ([facility]) Vital Signs (Past 12 Hours) Vital Signs Temp Pulse Resp BP Pulse Ox 03/30/20 13:00 69 164/99 H 95 03/30/20 12:49 74 24 171/110 H 93 03/30/20 12:42 73 23 03/30/20 11:28 37.6 C H 76 18 120/66 96 03/30/20 11:20 75 23 120/66 Diagnostic Findings XR chest 1V portable IMPRESSION: Mild cardiomegaly. No acute findings. CT SCAN OF THE ABDOMEN AND PELVIS WITHOUT IV CONTRAST IMPRESSION: 1. Streak and motion compromised examination. 2. There is significant gaseous distention of the right colon. The sigmoid colon is redundant, and focal twisting of the sigmoid is suggested in the midline pelvis. The appearance is concerning for sigmoid volvulus. Surgical consultation is advised. 3. The small bowel loops are normal in caliber. 4. Right-sided nephrolithiasis. 5. Hepatomegaly and hepatic steatosis. 6. Trace free fluid is noted in the paracolic gutters. 7. Additional findings as above. ECG Indication: abdominal pain Rate (beats per minute): 75 Rhythm: normal sinus Findings: no acute ischemic change Comparison ECG Date: from (September 11, 2018) Change: no significant change Code Status & VTE Plan Code Status Full as discussed with the patient VTE Prophylaxis Plan VTE Prophylaxis will be ordered: Yes PG Care Time/CCT Total # of Minutes Spent Total Time Spent with Patient: Total time spent is greater than 50% in coordination of care (as documented) at patient's floor/unit and/or counseling patient: Coding Level of Care Code 97352 Initial Inpt Care Lvl [address] of the abdomen R93.5 Abdominal pain R10.9 UTI (urinary tract infection) N39.0 Anemia D64.9 Acute hyponatremia E87.1 Hypokalemia E87.6 Hypomagnesemia E83.42 Quadriplegia G82.50 Diabetes E11.9 HTN (hypertension) I10 HLD (hyperlipidemia) E78.5 DVT prophylaxis Z29.9
--- NOTE | 2020-03-30 17:37 | Surgery Consultation ---
Date of Consultation March 30, 2020 Assessment & Plan (1) Colon distention: Plan will be to correct patient's electrolytes and his UTI NG tube if he will comply Obviously limited p.o. intake We will consider endoscopic decompression prior to any vertical intervention And he was obviously very reluctant when I told him he may need a diverting stoma History of Present Illness History of Present Illness Patient presents to the emergency room with a diagnosis of UTI and also he has significant abdominal distention Most of which is colonic in nature-there is some question of a volvulus although most likely redundant colon Patient states that he gets this way when he has a UTI-he is a quadriplegic Patient was seen by GI and they feel may consider cervical treatment the present time They do not plan on trying to decompress him at this point Allergies Allergy/AdvReac Type Severity Reaction Status Date / Time Sulfa (Sulfonamide Allergy Swelling Verified 03/30/20 15:47 Antibiotics) of Lip/Tongue/Throat Home Medications Home Medications Medication Instructions Recorded Confirmed Type amlodipine 10 mg PO DAILY 05/11/18 03/30/20 History atorvastatin 20 mg PO DAILY 05/11/18 03/30/20 History baclofen 25 mg PO TID 05/11/18 03/30/20 History folic acid 1 mg PO [id number] 05/11/18 03/30/20 History metformin 1,000 mg PO AMPM 05/11/18 03/30/20 History methenamine hippurate 1 g PO BID 05/11/18 03/30/20 History methotrexate sodium 15 mg PO WK 05/11/18 03/30/20 History oxybutynin chloride 5 mg PO TID 05/11/18 03/30/20 History prednisone 10 mg PO DAILY 05/11/18 03/30/20 History ascorbic acid (vitamin C) [Vitamin 500 mg PO DAILY 09/11/18 03/30/20 History C] bisacodyl 10 mg AL Q OTHER DAY PRN 09/11/18 03/30/20 History clobetasol 1 applic TOPICAL QS PRN 09/11/18 03/30/20 History diclofenac sodium [Voltaren] See Rx Instructions .ROUTE 09/11/18 03/30/20 Rx .COMPLEX #100 gm potassium chloride 20 meq PO DAILY 09/11/18 03/30/20 History tramadol 50 mg tablet 50 mg PO Q8H PRN 10/04/18 03/30/20 History ergocalciferol (vitamin D2) 50,000 unit PO WK 11/02/18 03/30/20 History lactulose [Enulose] 10 ml PO Q OTHER DAY PRN 11/02/18 03/30/20 History lisinopril 40 mg PO DAILY 11/02/18 03/30/20 History famotidine 40 mg PO DAILY 03/30/20 03/30/20 History glipizide 5 mg PO QAM 03/30/20 03/30/20 History Patient History Medical History Bladder stone Diabetes HLD (hyperlipidemia) HTN (hypertension) Hypertension Nephrolithiasis Neurogenic bladder Osteomyelitis Paraplegia with partial quadriplegia Pemphigoid Pemphigus foliaceus Sacral wound Suprapubic catheter Surgical History History of hip surgery History of suprapubic catheter Previous back surgery Family History (Updated 10/19/19 @ 10:30 by AXEL Newman) Mother Cancer Father Diabetes Grandfather Diabetes Other No significant family history Social History Smoking Status: Never smoker Hx Alcohol Use: No Hx Substance Use: No Preferred Language: Barbadian Communication Ability: Effective Supervisor Sample Required: No Beliefs That Will Affect Care: None Current Living Situation: Alone Feels Safe at Home: Yes during the past year weight has: decreased > 10 lbs Assistive Devices: Glasses Review of Systems Review of Systems: All systems reviewed & are unremarkable except as noted in HPI & below Physical Exam Physical Exam: Patient is awake and alert in his bed he is in no distress he is not having significant abdominal pain He does have some decreased bowel sounds and has no evidence of peritoneal irritation Constitutional: no acute distress Eyes: + anicteric sclerae Respiratory: normal respiratory effort; no respiratory distress Cardiovascular: Rate/Rhythm: regular rate Musculoskeletal: Head/Neck/Chest: head atraumatic Skin: no rashes, warm and dry Neurologic: awake Psychiatric: Orientation: alert Results & Data ([facility]) Vital Signs (Past 12 Hours) Vital Signs Temp Pulse Resp BP Pulse Ox 03/30/20 16:30 69 24 170/87 H 03/30/20 16:01 67 23 156/93 H 03/30/20 16:00 68 23 03/30/20 15:32 72 17 168/109 H 03/30/20 15:30 74 03/30/20 15:01 66 25 H 03/30/20 15:00 68 26 H 126/72 03/30/20 14:31 80 24 119/89 03/30/20 14:30 71 26 H 03/30/20 14:02 73 23 177/92 H 03/30/20 14:00 69 24 03/30/20 13:30 66 24 03/30/20 13:00 69 164/99 H 95 03/30/20 12:49 74 24 171/110 H 93 03/30/20 12:42 73 23 03/30/20 11:28 37.6 C H 76 18 120/66 96 03/30/20 11:20 75 23 120/66 I did review the patient's CAT scan PG Care Time/CCT Total # of Minutes Spent Total Time Spent with Patient: Total time spent is greater than 50% in coordination of care (as documented) at patient's floor/unit and/or counseling patient: Coding Level of Care Code 38959 Inpt Consult Level 4 Diagnoses Colon distention K63.89
[2020-03-30] MEDS ORDERED: NSS+KCL 20 MEQ 1000ML IV ONE (17:59)
[2020-03-30] MEDS ORDERED: TRAMADOL HCL 50 MG TABLET PO PRN (19:14)
[2020-03-30] MEDS ORDERED: CARBOHYDRATES FOR HYPOGLYCEMIA PO PRN (19:14)
[2020-03-30] MEDS ORDERED: DICLOFENAC SOD 1% GEL 100 GM TUBE EXT SCH (19:14)
[2020-03-30] MEDS ORDERED: GLUCAGON FOR INJ 1 MG VIAL SQ PRN (19:14)
[2020-03-30] MEDS ORDERED: IMIPENEM/CILASTATIN CONSULT ACTIVE PRN (19:14)
[2020-03-30] MEDS ORDERED: bisacodyL 10 MG SUPP PR PRN (19:14)
[2020-03-30] MEDS ORDERED: DEXTROSE 50% 50 ML SYRINGE IV PRN (19:14)
[2020-03-30] MEDS ORDERED: GLUCOSE 10 TABS/TUBE PO PRN (19:14)
[2020-03-30] MEDS ORDERED: GLUCOSE 40% GEL 15 GM TUBE PO PRN (19:14)
[2020-03-30] MEDS ORDERED: Nursing to Pharmacy Communication SCH ×2 (19:30→22:15)
[2020-03-30] MEDS ORDERED: MICONAZOLE NITRATE POWDER 43 GM EXT PRN (19:38)
[2020-03-30] MEDS: NSS + 20MEQ KCL 20 MEQ/1,000 ML BAG IV SCH (20:49)
[2020-03-30] MEDS ORDERED: ERGOCALCIFEROL 50,000 UNITS CAP PO SCH (21:30)
[2020-03-30] MEDS: ENOXAPARIN INJ 40 MG/0.4 ML SYR SQ SCH (21:44)
[2020-03-30] MEDS: INSULIN GLARGINE SOLOSTAR 100 UNITS/ML 3 ML PEN SC SCH (21:45)
[2020-03-30] MEDS: IMIPENEM/CILASTATIN SODIUM 500 MG in DEXTROSE 5% 100 ML IV SCH (21:45)
[2020-03-30] MEDS: INSULIN ASPART 100 UNITS/ML 3 ML PEN SC SCH ×2 (21:45→22:58)
[2020-03-30] MEDS: OXYBUTYNIN CHLORIDE 5 MG TAB PO SCH (21:46)
[2020-03-30] MEDS: BACLOFEN 10 MG TAB PO SCH (21:47)
--- NOTE | 2020-03-30 23:19 | Electrocardiogram Report ---
Test Reason : Blood Pressure : / mmHG Vent. Rate : 075 BPM Atrial Rate : 075 BPM P-R Int : 156 ms QRS Dur : 092 ms QT Int : 372 ms P-R-T Axes : 033 030 055 degrees QTc Int : 415 ms Poor data quality, interpretation may be adversely affected Normal sinus rhythm Normal ECG When compared with ECG of 11-SEP-2018 16:37, No significant change was found Confirmed by Maikel Gonzalez ([id number]) on 03/30/2020 11:19:14 PM Referred By: REFERRED SELF Confirmed By:Maikel Gonzalez
[2020-03-30] MEDS: CALCIUM CARBONATE 500 MG CHEWABLE TAB PO PRN (23:24)
[2020-03-30] MEDS ORDERED: MAGNESIUM SULFATE / D5W 1 GM/100 ML BAG IV ONE (23:36)
[2020-03-31] MEDS: BACLOFEN 10 MG TAB PO SCH ×4 (00:49→20:27)
[2020-03-31] MEDS: lisinopriL 40 MG TAB PO SCH ×2 (00:50→13:12)
[2020-03-31] MEDS: INSULIN ASPART 100 UNITS/ML 3 ML PEN SC SCH ×5 (00:58→23:32)
[2020-03-31] MEDS: IMIPENEM/CILASTATIN SODIUM 500 MG in DEXTROSE 5% 100 ML IV SCH ×4 (02:15→20:27)
[2020-03-31] MEDS: NSS + 20MEQ KCL 20 MEQ/1,000 ML BAG IV SCH (02:17)
[2020-03-31] MEDS: CALCIUM CARBONATE 500 MG CHEWABLE TAB PO PRN (05:54)
[2020-03-31] MEDS ORDERED: ondansetron HCL 6 MG in DEXTROSE 5% 50 ML IV PRN (06:15)
[2020-03-31] MEDS ORDERED: ONDANSETRON INJ 2 MG/ML 2 ML VIAL IV PRN (06:19)
--- NOTE | 2020-03-31 06:35 | Surgery Progress Note ---
Date of Service March 31, 2020 Assessment & Plan (1) Colon distention: He has agreed to try to have the NG tube placed May consider GI decompression Obviously if patient were to require surgery would be very difficult He would require a temporary stoma Admission and Anticipated Discharge Date Admission Date: March 30, 2020 Subjective Patient refused NG tube in the ER He is now nauseated-no emesis yet Physical Exam Physical Exam: His abdomen is very distended and firm does not appear to have significant tenderness Constitutional: Mild distress from the nausea Eyes: + anicteric sclerae Respiratory: normal respiratory effort; no respiratory distress Cardiovascular: Rate/Rhythm: regular rate Musculoskeletal: Upper extremity paresis Skin: no rashes, warm and dry Neurologic: awake Psychiatric: Orientation: alert Results & Data ([facility]) Vital Signs (Past 12 Hours) Vital Signs Temp Pulse Pulse Resp BP Pulse Ox 03/31/20 04:38 36.7 C 78 22 141/82 H 96 03/31/20 02:02 76 03/30/20 23:47 76 03/30/20 23:37 88 H 163/106 H 03/30/20 23:32 36.8 C 78 22 203/127 H 98 03/30/20 19:20 72 03/30/20 19:15 36.9 C 69 18 157/81 H 96 PG Care Time/CCT Total # of Minutes Spent Total Time Spent with Patient: Total time spent is greater than 50% in coordination of care (as documented) at patient's floor/unit and/or counseling patient: Coding Level of Care Code 34121 Inpt Consult Level 3 Diagnoses Colon distention K63.89
--- NOTE | 2020-03-31 08:30 | XRay Report ---
XR KUB/Abdomen 1 view CLINICAL HISTORY: NG tube placement COMPARISON STUDY: No previous studies for comparison. FINDINGS: A single view centered on hemidiaphragms is provided for interpretation. There is a nasogas tric tube which passes below the diaphragm and is therefore likely positioned within the stomach. The re is mild gaseous distention of the visualized bowel. IMPRESSION: Nasogastric tube within the stomach. ACT 112: Negative or not required by law. Electronically signed by: Sohail Aguayo M.D. 03/31/2020 8:29 AM
--- NOTE | 2020-03-31 08:31 | XRay Report ---
XR KUB/Abdomen 1 view CLINICAL HISTORY: NGT placement COMPARISON STUDY: Earlier in the day FINDINGS: The nasogastric tube remains positioned within the stomach. The heart is mildly enlarged. T here is gaseous distention of the bowel. IMPRESSION: Nasogastric tube within the stomach. ACT 112: Negative or not required by law. Electronically signed by: Sohail Aguyao M.D. 03/31/2020 8:30 AM
[2020-03-31 08:32] LABS: Basophils # (auto) 0.01 K/uL (0-0.2); Basophils % (auto) 0.1 %; Hematocrit (blood only) 37.5 % (42-52); Hemoglobin 13.1 g/dL (14.0-18.0); Immature Granulocytes # (auto) 0.03 K/uL (0.00-0.02); Immature Granulocytes % (auto) 0.2 %; Lymphocytes # (auto) 0.73 K/uL (1.2-3.4); Lymphocytes % (auto) 5.6 %; Mean Corpuscular Hemoglobin 30.3 pg (25-34); Mean Corpuscular Hgb Conc 34.9 g/dL (32-36); Mean Corpuscular Volume 86.8 fL (80-100); Mean Platelet Volume 10.9 fL (7.4-10.4); Monocytes # (auto) 0.74 K/uL (0.11-0.59); Monocytes % (auto) 5.7 %; Neutrophils # (auto) 11.54 K/uL (1.4-6.5); Neutrophils % (auto) 88.4 %; Platelet Count 210 K/uL (130-400); RDW Coefficient of Variation 15.7 % (11.5-14.5); RDW Standard Deviation 50.4 fL (36.4-46.3); Red Blood Count 4.32 M/uL (4.7-6.1); White Blood Count 13.05 K/uL (4.8-10.8)
[2020-03-31 08:49] LABS: Estimated Average Glucose 154 mg/dl
[2020-03-31] MEDS ORDERED: ATORVASTATIN 20 MG TAB PO SCH (09:00)
[2020-03-31] MEDS ORDERED: ASCORBIC ACID 500 MG TAB PO SCH (09:00)
[2020-03-31] MEDS ORDERED: FOLIC ACID 1 MG TAB PO SCH (09:00)
[2020-03-31] MEDS ORDERED: FAMOTIDINE 40 MG TABLET PO SCH (09:00)
[2020-03-31 09:03] LABS: BUN Creatinine Ratio 13.1 (10-20); Blood Urea Nitrogen 6 mg/dl (7-18); Calcium 9.4 mg/dl (8.5-10.1); Carbon Dioxide 21 mmol/L (21-32); Chloride 103 mmol/L (98-107); Est GFR (African American) > 150.0; Est GFR (Non-African American) 130.8; Glucose 162 mg/dl (70-99); Magnesium 2.2 mg/dl (1.8-2.4); Sodium 134 mmol/L (136-145)
[2020-03-31] MEDS: INSULIN GLARGINE SOLOSTAR 100 UNITS/ML 3 ML PEN SC SCH ×2 (09:16→20:29)
[2020-03-31] MEDS: AMLODIPINE BESYLATE 5 MG TAB PO SCH (09:18)
[2020-03-31] MEDS: POTASSIUM CHLORIDE 20 MEQ TABCR PO SCH (09:19)
[2020-03-31] MEDS: OXYBUTYNIN CHLORIDE 5 MG TAB PO SCH ×3 (09:19→20:29)
[2020-03-31] MEDS: predniSONE 10 MG TABLET PO SCH (09:19)
--- NOTE | 2020-03-31 10:17 | Urology Consultation ---
Date of Consultation March 31, 2020 Assessment & Plan (1) Urinary retention: Chronic urinary retention Suprapubic tube is in appropriate position based on CT from admission He has a history of bladder calculi but no current bladder stones based on CT He denies any urinary issues He had 3+ liters of urine output in the past 24 hours His tube was most recently changed 5 days ago by home nursing His current admission is GI in nature and not , I see no reason to change the catheter at this stage and would recommend continued management of his GI issues Please contact us if there are other issues during this hospitalization History of Present Illness Attending Physician: Jonatan Charles MD History of Present Illness Consulted because of presence of suprapubic tube? 50-year-old gentleman with a longstanding suprapubic tube for urinary drainage secondary to chronic urinary retention He had his tube changed on Thursday He has been having good urine outputclear, 3 L plus overnight He denies any major issues with the suprapubic tube He has likely chronically colonized He has a culture pending now He is admitted for other reasonspredominantly bowel related, obstruction Allergies Allergy/AdvReac Type Severity Reaction Status Date / Time Sulfa (Sulfonamide Allergy Swelling Verified 03/30/20 15:47 Antibiotics) of Lip/Tongue/Throat Home Medications Home Medications Medication Instructions Recorded Confirmed Type amlodipine 10 mg PO DAILY 05/11/18 03/30/20 History atorvastatin 20 mg PO DAILY 05/11/18 03/30/20 History baclofen 25 mg PO TID 05/11/18 03/30/20 History folic acid 1 mg PO [id number] 05/11/18 03/30/20 History metformin 1,000 mg PO AMPM 05/11/18 03/30/20 History methenamine hippurate 1 g PO BID 05/11/18 03/30/20 History methotrexate sodium 15 mg PO WK 05/11/18 03/30/20 History oxybutynin chloride 5 mg PO TID 05/11/18 03/30/20 History prednisone 10 mg PO DAILY 05/11/18 03/30/20 History ascorbic acid (vitamin C) [Vitamin 500 mg PO DAILY 09/11/18 03/30/20 History C] bisacodyl 10 mg MN Q OTHER DAY PRN 09/11/18 03/30/20 History clobetasol 1 applic TOPICAL QS PRN 09/11/18 03/30/20 History diclofenac sodium [Voltaren] See Rx Instructions .ROUTE 09/11/18 03/30/20 Rx .COMPLEX #100 gm potassium chloride 20 meq PO DAILY 09/11/18 03/30/20 History tramadol 50 mg tablet 50 mg PO Q8H PRN 10/04/18 03/30/20 History ergocalciferol (vitamin D2) 50,000 unit PO WK 11/02/18 03/30/20 History lactulose [Enulose] 10 ml PO Q OTHER DAY PRN 11/02/18 03/30/20 History lisinopril 40 mg PO DAILY 11/02/18 03/30/20 History famotidine 40 mg PO DAILY 03/30/20 03/30/20 History glipizide 5 mg PO QAM 03/30/20 03/30/20 History Patient History Medical History Bladder stone Diabetes HLD (hyperlipidemia) HTN (hypertension) Hypertension Nephrolithiasis Neurogenic bladder Osteomyelitis Paraplegia with partial quadriplegia Pemphigoid Pemphigus foliaceus Sacral wound Suprapubic catheter Surgical History History of hip surgery History of suprapubic catheter Previous back surgery Family History Mother Cancer Father Diabetes Grandfather Diabetes Other No significant family history Social History Smoking Status: Former smoker Hx Alcohol Use: No Hx Substance Use: No Preferred Language: Slovak Communication Ability: Effective Activated Sludge Attendant Required: No Beliefs That Will Affect Care: None Current Living Situation: Alone Feels Safe at Home: Yes during the past year weight has: decreased > 10 lbs Assistive Devices: Glasses Review of Systems Constitutional: + fatigue; no fever and no chills Eyes: no worsening vision Ear, Nose, Mouth, Throat: no facial pain and no pain with swallowing Respiratory: no cough and no dyspnea Cardiovascular: no chest pain and no palpitations Gastrointestinal: + abdominal pain, + bloating, + nausea and + vomiting Genitourinary: + problem reported Musculoskeletal: + limited range of motion; no back pain Integumentary: no rash and no urticaria Neurologic: + loss of sensation Psychiatric: no behavioral changes and no depression Endocrine: no fatigue Physical Exam Constitutional: well developed and well nourished Neck: neck nontender Respiratory: normal respiratory effort; no respiratory distress and does not use accessory muscles Cardiovascular: Rate/Rhythm: regular rate Vessels: radial pulses present Extremities: no edema Gastrointestinal (Abdomen): Inspection/Auscultation: + abdomen distended Percussion/Palpation: + abdomen tender NG tube in place draining substantial amount of fluid Musculoskeletal: Head/Neck/Chest: normocephalic and head atraumatic Skin: no rashes and no lesions Trauma: no evidence of skin trauma Neurologic: awake; not obtunded Speech / Cognition: normal speech Motor/Sensory: no tremor Psychiatric: Orientation: alert and oriented x 3 Genitourinary: no CVA tenderness Suprapubic tube in place, urine clear Lymphatic: no lymphadenopathy Results & Data ([facility]) Vital Signs (Past 12 Hours) Vital Signs Temp Pulse Pulse Resp BP BP Pulse Ox 03/31/20 08:15 76 03/31/20 07:00 37.3 C 79 20 172/116 H 169/124 H 98 03/31/20 04:38 36.7 C 78 22 141/82 H 96 03/31/20 02:02 76 03/30/20 23:47 76 03/30/20 23:37 88 H 163/106 H 03/30/20 23:32 36.8 C 78 22 203/127 H 98 PG Care Time/CCT Total # of Minutes Spent Total Time Spent with Patient: Total time spent is greater than 50% in coordination of care (as documented) at patient's floor/unit and/or counseling patient: Coding Level of Care Code 13003 Inpt Consult Level 3 Diagnoses Urinary retention R33.9
[2020-03-31] MEDS: ENOXAPARIN INJ 40 MG/0.4 ML SYR SQ SCH ×2 (13:12→20:29)
[2020-03-31] MEDS: POTASSIUM CHLORIDE 40 MEQ in D5W AND 1/2NSS 1,000 ML/1,000 ML BAG IV SCH ×2 (13:13→23:32)
--- NOTE | 2020-03-31 15:45 | Hospitalist Progress Note ---
Date of Service March 31, 2020 Assessment & Plan (1) Abnormal CT of the abdomen: Concern for sigmoid volvulus. Appreciate review by GI/surgery suspected more ileus and colon distension. Improving with bowel rest and NG tube. (2) Abdominal pain: As above. (3) UTI (urinary tract infection): Imipenem IV 500 mg every 6 hourly Consult urology for possible need to change suprapubic catheter. (4) Anemia: Chronic. At baseline. Will monitor. (5) Acute hyponatremia: Secondary to dehydration. Replace with IV NSS. (6) Hypokalemia: K 3.4, replace in IV fluids. (7) Hypomagnesemia: Mg 1.6. Possibly contributing. Mg sulphate IV 2g Repeat level with am labs. (8) Quadriplegia: (9) Diabetes: HbA1C with AM labs. Hold home meds Continue Lantus 10 units BID Novolog sliding scale, aim 100-140, correction 30mg/dL/unit, 1 unit per 10 g carbs. (10) HTN (hypertension): Continue amlodipine 10 mg PO daily, lisinopril 40mg PO daily (11) HLD (hyperlipidemia): Continue atorvastatin 20mg PO daily (12) DVT prophylaxis: Lovenox 40mg SQ BID Admission and Anticipated Discharge Date Admission Date: March 30, 2020 Subjective NG tube placed this morning, unable to get this in ER. Feels improved since this was inserted. Having a large amount of gastric fluid output. Passing large amount of flatus and large loose bowel movements. Patient currently n.p.o. except meds. Gram-negative bacilli urine culture. Blood cultures negative at 24 hours. No fever or chills. Urine less dark, reports usually sludhing suprapubic catheter with sterile water once/day. Review of Systems Review of Systems: All systems reviewed & are unremarkable except as noted in HPI & below Physical Exam Constitutional: well developed and + morbidly obese; + not well nourished and no acute distress ENMT: Ears: no external ear abnormality Nose: no external nose abnormality Mouth: oral mucous membranes not dry Respiratory: normal respiratory effort; no respiratory distress Auscultation: + diminished lung sounds (bibasal); no crackles, no rales, no rhonchi and no wheezes Cardiovascular: Rate/Rhythm: regular rate and regular rhythm Heart Sounds: no murmur Extremities: normal capillary refill and + pedal edema (1+ to knees, equal b/l) Gastrointestinal (Abdomen): Inspection/Auscultation: + abdomen distended (patient reports improved but objectively similar) and + hypoactive bowel sounds Percussion/Palpation: abdomen soft; abdomen nontender, no guarding and abdomen not rigid Skin: no rashes, warm and dry Neurologic: + focal motor deficit (nill acute, b/l LE paraplegia, UE distal weakness) and awake; not confused Psychiatric: Orientation: alert and oriented x 3 Affect: euthymic affect Results & Data Results & Data ([facility]) Vital Signs (Past 12 Hours) Vital Signs Temp Pulse Pulse Resp BP BP Pulse Ox 03/31/20 12:26 36.8 C 72 18 186/83 H 94 03/31/20 08:15 76 03/31/20 07:00 37.3 C 79 20 172/116 H 169/124 H 98 03/31/20 04:38 36.7 C 78 22 141/82 H 96 PG Care Time/CCT Total # of Minutes Spent Total Time Spent with Patient: Total time spent is greater than 50% in coordination of care (as documented) at patient's floor/unit and/or counseling patient: Coding Level of Care Code 98171 Subseq Hosp Care Lvl [address] of the abdomen R93.5 Abdominal pain R10.9 UTI (urinary tract infection) N39.0 Anemia D64.9 Acute hyponatremia E87.1 Hypokalemia E87.6 Hypomagnesemia E83.42 Quadriplegia G82.50 Diabetes E11.9 HTN (hypertension) I10 HLD (hyperlipidemia) E78.5 DVT prophylaxis Z29.9
[2020-03-31] MEDS ORDERED: HydrALAZINE HCL 20 MG/ML VIAL IV PRN (15:46)
[2020-03-31] MEDS ORDERED: Nursing to Pharmacy Communication SCH (20:30)
[2020-04-01] MEDS: IMIPENEM/CILASTATIN SODIUM 500 MG in DEXTROSE 5% 100 ML IV SCH ×4 (03:16→20:52)
[2020-04-01] MEDS: INSULIN ASPART 100 UNITS/ML 3 ML PEN SC SCH ×4 (06:05→20:57)
--- NOTE | 2020-04-01 07:07 | Surgery Progress Note ---
Date of Service April 01, 2020 Assessment & Plan Admission and Anticipated Discharge Date Admission Date: March 30, 2020 Subjective Seems to be feeling much better than yesterday morning Passing gas and having bowel movements Says today is a bedpan day which is his regular routine He is eating ice chips and has significant gastric fluid output-nonbilious We will try clamping his NG tube and possibly remove after lunch Advance diet slowly Results & Data ([facility]) Vital Signs (Past 12 Hours) Vital Signs Temp Pulse Pulse Resp BP BP Pulse Ox 04/01/20 03:12 36.8 C 71 20 175/78 H 96 03/31/20 23:00 69 03/31/20 22:15 36.8 C 73 20 152/86 H 95 03/31/20 19:28 36.9 C 64 20 143/80 H 97 PG Care Time/CCT Total # of Minutes Spent Total Time Spent with Patient: Total time spent is greater than 50% in coordination of care (as documented) at patient's floor/unit and/or counseling patient: Coding Level of Care Code 86974 Subseq Hosp Care Lvl 3
[2020-04-01 07:53] LABS: Basophils # (auto) 0.01 K/uL (0-0.2); Basophils % (auto) 0.1 %; Eosinophils # (auto) 0.14 K/uL (0-0.5); Eosinophils % (auto) 1.8 %; Hematocrit (blood only) 36.9 % (42-52); Hemoglobin 12.2 g/dL (14.0-18.0); Immature Granulocytes # (auto) 0.02 K/uL (0.00-0.02); Immature Granulocytes % (auto) 0.3 %; Lymphocytes # (auto) 0.91 K/uL (1.2-3.4); Lymphocytes % (auto) 11.4 %; Mean Corpuscular Hgb Conc 33.1 g/dL (32-36); Mean Corpuscular Volume 87.6 fL (80-100); Mean Platelet Volume 10.8 fL (7.4-10.4); Monocytes # (auto) 1.26 K/uL (0.11-0.59); Monocytes % (auto) 15.8 %; Neutrophils # (auto) 5.66 K/uL (1.4-6.5); Neutrophils % (auto) 70.6 %; Platelet Count 216 K/uL (130-400); RDW Coefficient of Variation 15.8 % (11.5-14.5); RDW Standard Deviation 50.7 fL (36.4-46.3); Red Blood Count 4.21 M/uL (4.7-6.1)
[2020-04-01] MEDS: BACLOFEN 10 MG TAB PO SCH ×3 (08:29→20:54)
[2020-04-01] MEDS: OXYBUTYNIN CHLORIDE 5 MG TAB PO SCH ×3 (08:30→20:55)
[2020-04-01] MEDS: lisinopriL 40 MG TAB PO SCH (08:30)
[2020-04-01] MEDS: POTASSIUM CHLORIDE 20 MEQ TABCR PO SCH (08:30)
[2020-04-01] MEDS: predniSONE 10 MG TABLET PO SCH (08:31)
[2020-04-01] MEDS: AMLODIPINE BESYLATE 5 MG TAB PO SCH (08:31)
[2020-04-01] MEDS: INSULIN GLARGINE SOLOSTAR 100 UNITS/ML 3 ML PEN SC SCH ×2 (08:35→20:57)
[2020-04-01] MEDS: POTASSIUM CHLORIDE 40 MEQ in D5W AND 1/2NSS 1,000 ML/1,000 ML BAG IV SCH (08:35)
[2020-04-01] MEDS: ENOXAPARIN INJ 40 MG/0.4 ML SYR SQ SCH ×2 (08:35→20:56)
[2020-04-01] MEDS: FAMOTIDINE 20 MG in SYRINGE 3 ML IV SCH ×2 (08:38→20:56)
[2020-04-01 08:56] LABS: Alanine Aminotransferase 43 U/L (12-78); Albumin Globulin Ratio 0.7 (0.9-2); Albumin Level 2.6 gm/dl (3.4-5.0); Alkaline Phosphatase 51 U/L (45-117); Aspartate Aminotransferase 31 U/L (15-37); BUN Creatinine Ratio 17.1 (10-20); Bilirubin,Total 0.8 mg/dl (0.2-1); Blood Urea Nitrogen 7 mg/dl (7-18); Calcium 9.1 mg/dl (8.5-10.1); Carbon Dioxide 27 mmol/L (21-32); Chloride 103 mmol/L (98-107); Creatinine Clr Calc Pharmacy 270.5 ml/min; Est GFR (African American) > 150.0; Est GFR (Non-African American) 134.4; Globulin 3.7 gm/dl (2.5-4.0); Glucose 178 mg/dl (70-99); Potassium 4.2 mmol/L (3.5-5.1); Sodium 133 mmol/L (136-145); Total Protein 6.3 gm/dl (6.4-8.2)
[2020-04-01] MEDS: bisacodyL 10 MG SUPP PR SCH (11:06)
[2020-04-01] MEDS ORDERED: Nursing to Pharmacy Communication SCH (13:45)
--- NOTE | 2020-04-01 16:21 | Hospitalist Progress Note ---
Date of Service April 01, 2020 Assessment & Plan (1) Abnormal CT of the abdomen: Initial concern for sigmoid volvulus. Reviewed by GI/surgery suspected more ileus and colon distension. - Ileus has resolved with bowel rest -> Large BM today. Advancing diet slowly. (2) UTI (urinary tract infection): Possible infection with temperature at 37.6 on admission & leukocytosis of 16. - Consulted urology for possible need to change suprapubic catheter; however, feel it is stable. - Continue imipenem for now; consider switch to ciprofloxacin to finish course. (3) Acute hyponatremia: Secondary to dehydration. Replace with IV NSS. - Improved to low 130s on 04/01. - Monitor (4) Anemia: Chronic. At baseline. Will monitor. (5) Diabetes: HbA1C was 7.0% this admission. - Hold home meds - Start Lantus 10 units BID - Novolog sliding scale -> Sugars 145 - 245 last 24 hours. (6) HTN (hypertension): BP high today at 175/80. - Continue amlodipine 10 mg PO daily, lisinopril 40mg PO daily (7) Quadriplegia: Long-standing. - Close monitoring of any wounds - Continue baclofen for contractures (8) HLD (hyperlipidemia): - Continue atorvastatin 20mg PO daily (9) DVT prophylaxis: Lovenox 40mg SQ BID Admission and Anticipated Discharge Date Admission Date: March 30, 2020 Subjective Doing well today. No major concerns. Reports no fevers/chills, chest pain, shortness of breath, abdominal pain, nausea, or vomiting. Physical Exam Constitutional: WD/WN, vitals as above + morbidly obese Eyes: EOM intact bilaterally; no conjunctival abnormality ENMT: external ear and nose normal, oropharynx normal Neck: trachea midline, no thyromegaly normal visual inspection Respiratory: normal respiratory effort, lungs clear to auscultation no respiratory distress Cardiovascular: RRR, no murmur, no edema Gastrointestinal (Abdomen): Inspection/Auscultation: abdomen normal to inspection; abdomen not distended Musculoskeletal: no cyanosis or clubbing, extremities motor strength 5/5 Skin: no rashes, warm and dry Neurologic: awake; + does not move all extremities Psychiatric: Orientation: alert, oriented to person and cooperative Results & Data Results & Data ([facility]) Vital Signs (Past 12 Hours) Vital Signs Pulse 04/01/20 14:48 50 L 04/01/20 12:41 47 L PG Care Time/CCT Total # of Minutes Spent Total Time Spent with Patient: Total time spent is greater than 50% in coordination of care (as documented) at patient's floor/unit and/or counseling patient: Coding Level of Care Code 65553 Subseq Hosp Care Lvl [address] of the abdomen R93.5 UTI (urinary tract infection) N39.0 Acute hyponatremia E87.1 Anemia D64.9 Diabetes E11.9 HTN (hypertension) I10 Quadriplegia G82.50 HLD (hyperlipidemia) E78.5 DVT prophylaxis Z29.9
[2020-04-01] MEDS ORDERED: metHOTREXate sodium 2.5 MG TAB PO ONE (17:15)
[2020-04-02] MEDS: IMIPENEM/CILASTATIN SODIUM 500 MG in DEXTROSE 5% 100 ML IV SCH ×4 (02:57→22:00)
[2020-04-02] MEDS: OXYBUTYNIN CHLORIDE 5 MG TAB PO SCH ×3 (07:39→21:56)
[2020-04-02] MEDS: BACLOFEN 10 MG TAB PO SCH ×3 (07:40→21:59)
[2020-04-02] MEDS: POTASSIUM CHLORIDE 20 MEQ TABCR PO SCH (07:41)
[2020-04-02] MEDS: ENOXAPARIN INJ 40 MG/0.4 ML SYR SQ SCH ×2 (07:43→21:58)
[2020-04-02] MEDS: AMLODIPINE BESYLATE 5 MG TAB PO SCH (07:43)
[2020-04-02] MEDS: lisinopriL 40 MG TAB PO SCH (07:43)
[2020-04-02] MEDS: predniSONE 10 MG TABLET PO SCH (07:44)
[2020-04-02] MEDS: INSULIN ASPART 100 UNITS/ML 3 ML PEN SC SCH ×4 (07:54→21:57)
[2020-04-02] MEDS: INSULIN GLARGINE SOLOSTAR 100 UNITS/ML 3 ML PEN SC SCH ×2 (07:55→21:56)
[2020-04-02] MEDS: FAMOTIDINE 20 MG in SYRINGE 3 ML IV SCH ×2 (08:30→22:00)
--- NOTE | 2020-04-02 09:08 | Surgery Progress Note ---
Date of Service April 02, 2020 Assessment & Plan (1) Colon distention: Patient continues to improve Tolerated NGT removal yesterday and clear liquids Denies abdominal pain/nausea/vomiting Having + bowel function Will advance to full liquids this AM Admission and Anticipated Discharge Date Admission Date: March 30, 2020 Subjective Patient seen resting in bed. States he is feeling well and offers no complaints. Feels "rumblings" in his stomach like he is going to have a BM soon. Otherwise he is tolerating clear liquids and says he has been passing gas/BM's. No n ausea/vomiting or abdominal pain noted. Physical Exam Physical Exam: awake/alert Gastrointestinal (Abdomen): Inspection/Auscultation: + abdomen distended Percussion/Palpation: abdomen soft; abdomen nontender Results & Data ([facility]) Vital Signs (Past 12 Hours) Vital Signs Temp Pulse Pulse Resp BP Pulse Ox 04/02/20 07:36 36.4 C L 59 L 20 173/113 H 98 04/02/20 07:21 45 L 04/02/20 02:57 164/94 H 04/02/20 02:51 36.7 C 54 L 20 177/98 H 96 04/01/20 22:32 36.8 C 56 L 20 152/75 H 94 04/01/20 22:22 52 L PG Care Time/CCT Total # of Minutes Spent Total Time Spent with Patient: Total time spent is greater than 50% in coordination of care (as documented) at patient's floor/unit and/or counseling patient: Coding Level of Care Code 04177 Subseq Hosp Care Lvl 1 Diagnoses Colon distention K63.89
--- NOTE | 2020-04-02 11:48 | Hospitalist Progress Note ---
Date of Service April 02, 2020 Assessment & Plan (1) Abnormal CT of the abdomen: Initial concern for sigmoid volvulus. Reviewed by GI/surgery suspected more ileus and colon distension. - Ileus has resolved with bowel rest -> Large BM yesterday. Advancing diet slowly. - Appreciate surgery recs - Move to full liquids. Consider suppository again. (2) UTI (urinary tract infection): Possible infection with temperature at 37.6 on admission & leukocytosis of 16. Urine culture from 03/30 growing Pseudomonas. - Consulted urology for possible need to change suprapubic catheter; however, feel it is stable. - Continue imipenem for now; consider switch to ciprofloxacin to finish course. (3) Acute hyponatremia: Secondary to dehydration. Replace with IV NSS. - Improved to low 130s on 04/01. - Monitor (4) Anemia: Chronic. Likely anemia of chronic disease. At baseline. Will monitor. (5) Diabetes: HbA1C was 7.0% this admission. - Hold home meds - Start Lantus 10 units BID - Novolog sliding scale -> Sugars 145 - 242 last 24 hours. (6) HTN (hypertension): BP high today at 170/90. - Continue amlodipine 10 mg PO daily, lisinopril 40mg PO daily (7) Quadriplegia: Long-standing. - Close monitoring of any wounds -> None at present. Sacrum largely healed. - Continue baclofen for contractures (8) HLD (hyperlipidemia): - Continue atorvastatin 20mg PO daily (9) DVT prophylaxis: Lovenox 40mg SQ BID Admission and Anticipated Discharge Date Admission Date: March 30, 2020 Subjective Doing well today. Had a good BM yesterday and feels like today will have another. No nausea or vomiting. Reports no fevers/chills, chest pain, shortness of breath, abdominal pain, nausea, or vomiting. Physical Exam Constitutional: WD/WN, vitals as above + morbidly obese Eyes: EOM intact bilaterally; no conjunctival abnormality ENMT: external ear and nose normal, oropharynx normal Neck: trachea midline, no thyromegaly normal visual inspection Respiratory: normal respiratory effort, lungs clear to auscultation no respiratory distress Cardiovascular: RRR, no murmur, no edema Gastrointestinal (Abdomen): Inspection/Auscultation: abdomen normal to inspection; abdomen not distended Musculoskeletal: no cyanosis or clubbing, extremities motor strength 5/5 Skin: no rashes, warm and dry Neurologic: awake; + does not move all extremities Psychiatric: Orientation: alert, oriented to person and cooperative Genitourinary: + external exam abnormal (Suprapubic catheter) Results & Data Results & Data ([facility]) Vital Signs (Past 12 Hours) Vital Signs Temp Pulse Pulse Resp BP BP Pulse Ox 04/02/20 11:34 36.6 C 58 L 18 168/90 H 96 04/02/20 07:36 36.4 C L 59 L 20 173/113 H 98 04/02/20 07:21 45 L 04/02/20 02:57 164/94 H 04/02/20 02:51 36.7 C 54 L 20 177/98 H 96 PG Care Time/CCT Total # of Minutes Spent Total Time Spent with Patient: Total time spent is greater than 50% in coordination of care (as documented) at patient's floor/unit and/or counseling patient: Coding Level of Care Code 91068 Subseq Hosp Care Lvl [address] of the abdomen R93.5 UTI (urinary tract infection) N39.0 Acute hyponatremia E87.1 Anemia D64.9 Diabetes E11.9 HTN (hypertension) I10 Quadriplegia G82.50 HLD (hyperlipidemia) E78.5 DVT prophylaxis Z29.9
[2020-04-03] MEDS: IMIPENEM/CILASTATIN SODIUM 500 MG in DEXTROSE 5% 100 ML IV SCH ×3 (03:17→14:07)
[2020-04-03 07:18] LABS: Hematocrit (blood only) 38.9 % (42-52); Hemoglobin 12.3 g/dL (14.0-18.0); Mean Corpuscular Hemoglobin 27.8 pg (25-34); Mean Corpuscular Hgb Conc 31.6 g/dL (32-36); Mean Platelet Volume 10.7 fL (7.4-10.4); Platelet Count 286 K/uL (130-400); RDW Coefficient of Variation 15.5 % (11.5-14.5); RDW Standard Deviation 49.7 fL (36.4-46.3); Red Blood Count 4.42 M/uL (4.7-6.1); White Blood Count 7.45 K/uL (4.8-10.8)
--- NOTE | 2020-04-03 07:36 | Surgery Progress Note ---
Date of Service April 03, 2020 Assessment & Plan (1) Colon distention: GI function appears to be improved With treatment of UTI Does not appear to need surgical intervention Admission and Anticipated Discharge Date Admission Date: March 30, 2020 Subjective Patient resting comfortably slept well overnight No significant abdominal complaints Physical Exam Physical Exam: Abdomen is much less distended Constitutional: no acute distress Eyes: + anicteric sclerae Respiratory: normal respiratory effort; no respiratory distress Cardiovascular: Rate/Rhythm: regular rate Musculoskeletal: Head/Neck/Chest: head atraumatic Skin: no rashes, warm and dry Psychiatric: Orientation: cooperative Results & Data ([facility]) Vital Signs (Past 12 Hours) Vital Signs Temp Pulse Pulse Resp BP BP Pulse Ox 04/03/20 07:20 45 L 04/03/20 06:58 36.4 C L 54 L 20 183/99 H 96 04/03/20 04:10 36.5 C 55 L 20 147/83 H 97 04/03/20 00:19 168/82 H 04/02/20 23:54 53 L 04/02/20 23:03 36.8 C 63 20 190/89 H 97 PG Care Time/CCT Total # of Minutes Spent Total Time Spent with Patient: Total time spent is greater than 50% in coordination of care (as documented) at patient's floor/unit and/or counseling patient: Coding Level of Care Code 36859 Inpt Consult Level 3 Diagnoses Colon distention K63.89
[2020-04-03 08:12] LABS: BUN Creatinine Ratio 15.1 (10-20); Blood Urea Nitrogen 6 mg/dl (7-18); Calcium 9.3 mg/dl (8.5-10.1); Carbon Dioxide 26 mmol/L (21-32); Chloride 103 mmol/L (98-107); Creatinine Clr Calc Pharmacy 260.4 ml/min; Est GFR (African American) > 150.0; Est GFR (Non-African American) 135.8; Glucose 111 mg/dl (70-99); Magnesium 2.1 mg/dl (1.8-2.4); Sodium 138 mmol/L (136-145)
[2020-04-03] MEDS: bisacodyL 10 MG SUPP PR SCH (08:16)
[2020-04-03] MEDS: FAMOTIDINE 20 MG in SYRINGE 3 ML IV SCH (08:16)
[2020-04-03] MEDS: AMLODIPINE BESYLATE 5 MG TAB PO SCH (08:17)
[2020-04-03] MEDS: predniSONE 10 MG TABLET PO SCH (08:17)
[2020-04-03] MEDS: POTASSIUM CHLORIDE 20 MEQ TABCR PO SCH (08:17)
[2020-04-03] MEDS: lisinopriL 40 MG TAB PO SCH (08:17)
[2020-04-03] MEDS: OXYBUTYNIN CHLORIDE 5 MG TAB PO SCH ×2 (08:18→14:08)
[2020-04-03] MEDS: BACLOFEN 10 MG TAB PO SCH ×2 (08:18→14:08)
[2020-04-03] MEDS: ENOXAPARIN INJ 40 MG/0.4 ML SYR SQ SCH (08:19)
[2020-04-03] MEDS: INSULIN GLARGINE SOLOSTAR 100 UNITS/ML 3 ML PEN SC SCH (08:20)
[2020-04-03] MEDS: INSULIN ASPART 100 UNITS/ML 3 ML PEN SC SCH ×2 (08:21→12:23)
[2020-04-03 08:27] LABS: Potassium 3.4 mmol/L (3.5-5.1)
--- NOTE | 2020-04-03 15:32 | Discharge Summary ---
Date of Service April 03, 2020 Admission HPI Per Admitting Provider Jhonatan Henry is a 50-year-old male with quadraplegia and chronic suprapubic catheter who presents to the ER with abdominal pain, bloating, change in bowels, fatigue, chills. His symptoms started 3-4 days ago. Progressively getting worse. Has history of recurrent UTIs with prior pseudomonas. His PCP prescribed antibiotics but he was unable to pick these up today. He felt similar to having prior UTIs but no suprapubic pain or measured fever. He does have dark, thicker/mucus urine. He was experiencing chills and generalized weakness this morning which prompting his ER visit via EMS. With regard to his bowel. He reports needing to give himself an enema as needed to help with bowel movements. He took an exema earlier today and had 4 bowel movements. He denies any vomiting but does feel midly nauseous. No heartburn or chest pain. In the ER UA was suggestive of UTI with history of pseudomonas therefore he was started on imipenem. CT was concerning for sigmoid voluvulus and currently he is being evaluated by GI and general surgery who have consulted by ER physician. Principal Diagnosis Ileus Possible UTI Discharge Exam Constitutional WD/WN, vitals as above + morbidly obese Eyes EOM intact bilaterally; no conjunctival abnormality ENMT external ear and nose normal, oropharynx normal Neck trachea midline, no thyromegaly normal visual inspection Respiratory normal respiratory effort, lungs clear to auscultation no respiratory distress Cardiovascular RRR, no murmur, no edema Gastrointestinal (Abdomen) Inspection/Auscultation: abdomen normal to inspection; abdomen not distended Musculoskeletal no cyanosis or clubbing, extremities motor strength 5/5 Skin no rashes, warm and dry Neurologic awake; + does not move all extremities Psychiatric Orientation: alert, oriented to person and cooperative Genitourinary + external exam abnormal (Suprapubic catheter) Discharge Data Allergies Allergy/AdvReac Type Severity Reaction Status Date / Time Sulfa (Sulfonamide Allergy Swelling Verified 03/30/20 15:47 Antibiotics) of Lip/Tongue/Throat lactose AdvReac Verified 03/31/20 16:47 Consultations 03/30/20 14:49 ED Decision to Admit Stat 03/30/20 21:32 Consult Urology Routine Ordered Studies 03/30/20 12:26 CT abd pelvis wo con Stat Hospital Course (1) Abnormal CT of the abdomen: Initial concern for sigmoid volvulus. Reviewed by GI/surgery suspected more ileus and colon distension. - Ileus has resolved with bowel rest -> Large BM yesterday. Advancing diet slowly. - Appreciate surgery recs - Moved to normal diet over several days. Using his normal suppositories, he had good BM. Pain resolved and didn't come back. Tolerated diet well. (2) UTI (urinary tract infection): Possible infection with temperature at 37.6 on admission & leukocytosis of 16. Urine culture from 03/30 growing Pseudomonas. - Consulted urology for possible need to change suprapubic catheter; however, feel it is stable. - Continued imipenem while inpatient; switched to ciprofloxacin to finish course. Total course of 7 days. (3) Acute hyponatremia: Secondary to dehydration. Replace with IV NSS. - Improved to low 130s on 04/01. - Monitor -> Stable. (4) Anemia: Chronic. Likely anemia of chronic disease. At baseline. Will monitor. (5) Diabetes: HbA1C was 7.0% this admission. - Held home meds inpatient; return to home regimen on discharge. (6) HTN (hypertension): BP high generally at 170/90; however, normal by discharge. - Continue amlodipine 10 mg PO daily, lisinopril 40mg PO daily (7) Quadriplegia: Long-standing. - Close monitoring of any wounds -> None at present. Sacrum largely healed. - Continue baclofen for contractures (8) HLD (hyperlipidemia): - Continue atorvastatin 20mg PO daily (9) DVT prophylaxis: Lovenox 40mg SQ BID Total Time Total Time Spent Total Time Spent (In Minutes): 35 Discharge Plan Discharge Items Patient Disposition: Home - Home Health Services Reason For Visit: UTI HYPONATREMIA ILEUS Discharge Diagnosis: UTI, ileus Condition on Discharge: Fair Activity: Resume your previous activity Non-emergency contact: Primary Care Provider Call non-emergency contact if: your symptoms worsen Follow-up/Referrals: PCP,NO [Primary Care Provider] - Diet: Carb Consistent or DM2 and Heart Healthy Addtl Attending Provider Instructions: Mr. Henry, You were admitted to the hospital with abdominal pain that was a back-up of stool in the colon. With some bowel rest and decompression with an NG tube, this worked itself out, and your abdomen feels much better and you are eating and drinking normally. We also found some bacteria in the urine in your catheter. As we discussed, it is difficult to distinguish between a UTI and colonization when you have a long- standing catheter in. However, there were some signs of infection such as a mild fever and an elevated white count (a blood test that can indicate infection) which has come down with antibiotics. We will give you 3 more days of antibiotics to go for a total of a week-long course. This hopefully covers any infection while not overtreating you and putting you at risk for C. diff or other diarrhea. Pending Studies at Discharge: No Stand-Alone Forms: My [facility] Insights, Smoking Cessation Medications and DC Order Prescriptions: New ciprofloxacin HCl 500 mg tablet 500 mg PO BID Qty: 6 RF: 0 Continued tramadol 50 mg tablet 50 mg PO Q8H PRN (Reason: Pain) RF: 0 atorvastatin 20 mg tablet 20 mg PO DAILY RF: 0 amlodipine 10 mg tablet 10 mg PO DAILY RF: 0 prednisone 5 mg tablet 10 mg PO DAILY RF: 0 methenamine hippurate 1 gram tablet 1 g PO BID RF: 0 methotrexate sodium 2.5 mg tablet 15 mg PO WK RF: 0 oxybutynin chloride 5 mg tablet 5 mg PO TID RF: 0 metformin 500 mg tablet extended release 24 hr 1,000 mg PO AMPM RF: 0 baclofen 10 mg tablet 25 mg PO TID RF: 0 folic acid 1 mg tablet 1 mg PO 6XWK RF: 0 potassium chloride 20 mEq tablet,ER particles/crystals 20 meq PO DAILY RF: 0 ascorbic acid (vitamin C) [Vitamin C] 500 mg Tablet 500 mg PO DAILY RF: 0 bisacodyl 10 mg Suppository 10 mg [place] Q OTHER DAY PRN (Reason: Constipation) RF: 0 clobetasol 0.025 % Cream 1 applic TOPICAL QS PRN (Reason: ..) RF: 0 diclofenac sodium [Voltaren] 1 % gel See Rx Instructions .ROUTE .COMPLEX Qty: 100 RF: 0 ergocalciferol (vitamin D2) 50,000 unit capsule 50,000 unit PO WK RF: 0 lactulose [Enulose] 10 gram/15 mL solution 10 ml PO Q OTHER DAY PRN (Reason: Corneal Thickening) RF: 0 lisinopril 40 mg tablet 40 mg PO DAILY RF: 0 famotidine 40 mg tablet 40 mg PO DAILY RF: 0 glipizide 5 mg tablet extended release 24hr 5 mg PO QAM RF: 0 Discharge Orders: Discharge Order (Routine); Ordered 04/03/20 Ordered By: Constantino Ness Admission Data Admit Date/Time: 03/30/20 16:38 Attending Provider: Constantino Ness Admit Provider: Jonatan Charles Primary Care Provider: PCP,NO Other Providers: Will Young ; Constantino Ness ; [place] Other Interventions: Discharge Summary Assessment (RN) Last Done: 04/03/20 14:14 Coding Level of Care Code D/C Day Management >[address] of the abdomen R93.5 UTI (urinary tract infection) N39.0 Acute hyponatremia E87.1 Anemia D64.9 Diabetes E11.9 HTN (hypertension) I10 Quadriplegia G82.50 HLD (hyperlipidemia) E78.5 DVT prophylaxis Z29.9
== END 2020-04-03 16:51 | disposition home health service (06) | DRG 388 ==
LOC: ED 11:13 → SUATTDRO 16:38 → 2W 16:38
DX: Z79.899 Other long term (current) drug therapy; R33.8 Other retention of urine; Z87.891 Personal history of nicotine dependence; E86.0 Dehydration; B96.5 Pseudomonas (aeruginosa) (mallei) (pseudomallei) as the cause of diseases classified elsewhere; E83.42 Hypomagnesemia; N39.0 Urinary tract infection, site not specified; Z79.52 Long term (current) use of systemic steroids; E87.6 Hypokalemia; Z87.442 Personal history of urinary calculi; Z88.2 Allergy status to sulfonamides; E11.9 Type 2 diabetes mellitus without complications; E78.5 Hyperlipidemia, unspecified; G82.50 Quadriplegia, unspecified; D64.9 Anemia, unspecified; K56.7 Ileus, unspecified; I10 Essential (primary) hypertension; E87.1 Hypo-osmolality and hyponatremia; Z93.59 Other cystostomy status; Z87.440 Personal history of urinary (tract) infections; Z79.84 Long term (current) use of oral hypoglycemic drugs

== ENCOUNTER 2020-10-26 21:38 | Observation (INO) ==
[2020-10-26] MEDS ORDERED: ONDANSETRON INJ 2 MG/ML 2 ML VIAL IV STA (23:07)
[2020-10-26 23:08] LABS: Appearance Urine Clear (Clear); Bacteria Urine Automated Negative (Negative); Bilirubin Urine Negative (Negative); Blood Urine Negative (Negative); Color Urine Yellow; Glucose Urine UA Negative (Negative); Ketones Urine 2+ (Negative); Leukocyte Esterase Urine 1+ (Negative); Nitrite Urine Negative (Negative); Protein Urine Negative (Negative); RBC Urine Automated 0-4 /hpf (0-4); Specific Gravity Urine 1.008 (1.000-1.030); Urobilinogen Urine Negative (Negative); pH Urine 6.5 (4.5-7.5)
[2020-10-26] MEDS ORDERED: SODIUM CHLORIDE 0.9% 500 ML IV SCH (23:15)
[2020-10-26] MEDS ORDERED: SODIUM CHLORIDE 0.9% 1000ML 1,000 ML IV SCH (23:15)
[2020-10-26 23:26] LABS: Basophils # (auto) 0.01 K/uL (0-0.2); Basophils % (auto) 0.1 %; Eosinophils # (auto) 0.08 K/uL (0-0.5); Eosinophils % (auto) 0.6 %; Hemoglobin 13.2 g/dL (14.0-18.0); Immature Granulocytes # (auto) 0.02 K/uL (0.00-0.02); Immature Granulocytes % (auto) 0.2 %; Lymphocytes # (auto) 0.98 K/uL (1.2-3.4); Lymphocytes % (auto) 7.6 %; Mean Corpuscular Hemoglobin 28.5 pg (25-34); Mean Corpuscular Hgb Conc 33.8 g/dL (32-36); Mean Corpuscular Volume 84.2 fL (80-100); Mean Platelet Volume 11.4 fL (7.4-10.4); Monocytes # (auto) 0.96 K/uL (0.11-0.59); Monocytes % (auto) 7.5 %; Neutrophils # (auto) 10.82 K/uL (1.4-6.5); Platelet Count 306 K/uL (130-400); RDW Coefficient of Variation 15.5 % (11.5-14.5); RDW Standard Deviation 47.2 fL (36.4-46.3); Red Blood Count 4.63 M/uL (4.7-6.1); White Blood Count 12.87 K/uL (4.8-10.8)
[2020-10-26 23:38] LABS: Alanine Aminotransferase 26 U/L (12-78); Albumin Level 3.4 gm/dl (3.4-5.0); Aspartate Aminotransferase 13 U/L (15-37); BUN Creatinine Ratio 22.6 (10-20); Blood Urea Nitrogen 9 mg/dl (7-18); Calcium 8.6 mg/dl (8.5-10.1); Carbon Dioxide 23 mmol/L (21-32); Chloride 97 mmol/L (98-107); Creatinine Clr Calc Pharmacy 280.6 ml/min; Est GFR (African American) > 150.0; Est GFR (Non-African American) 138.5; Glucose 117 mg/dl (70-99); Lipase 164 U/L (73-393); Potassium 3.5 mmol/L (3.5-5.1); Sodium 131 mmol/L (136-145)
[2020-10-26 23:41] LABS: Alkaline Phosphatase 72 U/L (45-117); Globulin 3.5 gm/dl (2.5-4.0); Total Protein 6.9 gm/dl (6.4-8.2)
[2020-10-27 01:06] LABS: Influenza A virus by PCR Negative (Neg); Influenza B virus by PCR Negative (Neg); RSV by PCR Negative (Neg); SARS CoV2 RNA(COVID-19) InHosp NEGATIVE (Negative)
[2020-10-27] MEDS ORDERED: CIPROFLOXACIN 500 MG TAB PO STA (01:24)
[2020-10-27] MEDS ORDERED: GI COCKTAIL ED USE PO ONE (01:58)
[2020-10-27] MEDS ORDERED: BACLOFEN 10 MG TAB ONE (02:57)
--- NOTE | 2020-10-27 03:36 | Emergency Department Note ---
History of Present Illness General Chief complaint: Illness Time Seen by Provider: 10/26/20 23:02 Source: patient and RN notes reviewed Mode of arrival: EMS Limitations: no limitations History of Present Illness Provider complaint: Diarrhea Maximum Pain Intensity: 4 This patient is a 50-year-old male who presents to the emergency department with complaints of cramping abdominal discomfort, multiple liquid BMs today. Patient states he had tuna that was prepared by his caregiver but he felt that it did not taste right. Shortly after eating about 1.5/3 cans, he checked the date and realized that the tuna had 2 years ago. The patient has felt sweats and feverish. Of note patient states today was his regularly scheduled bowel regimen day. Typically his caregiver insert several suppositories and places him on a bedpan. He does not usually have diarrhea the way he did today. He states he lives at home by himself but has caregivers 8 hours during the day and 1 hour again before bed as he is a quadriplegic. He denies any significant coughing, shortness of breath, blood in the stools. He does have a suprapubic catheter in place. Home Medications Medication Instructions Recorded Confirmed Type amlodipine 10 mg PO DAILY 05/11/18 10/26/20 History atorvastatin 20 mg PO DAILY 05/11/18 10/26/20 History baclofen 20 mg PO TID 05/11/18 10/26/20 History folic acid 1 mg PO [id number] 05/11/18 10/26/20 History metformin 1,000 mg PO AMPM 05/11/18 10/26/20 History methenamine hippurate 1 g PO BID 05/11/18 10/26/20 History methotrexate sodium 15 mg PO WK 05/11/18 10/26/20 History oxybutynin chloride 5 mg PO TID 05/11/18 10/26/20 History prednisone 10 mg PO DAILY 05/11/18 10/26/20 History ascorbic acid (vitamin C) [Vitamin 500 mg PO DAILY 09/11/18 10/26/20 History C] bisacodyl 10 mg NE Q OTHER DAY PRN 09/11/18 10/26/20 History clobetasol 1 applic TOPICAL QS PRN 09/11/18 10/26/20 History diclofenac sodium [Voltaren] See Rx Instructions .ROUTE 09/11/18 10/26/20 Rx .COMPLEX #100 gm potassium chloride 20 meq PO DAILY 09/11/18 10/26/20 History lactulose [Enulose] 10 ml PO Q OTHER DAY PRN 11/02/18 10/26/20 History lisinopril 40 mg PO DAILY 11/02/18 10/26/20 History famotidine 40 mg PO DAILY 03/30/20 10/26/20 History glipizide 10 mg PO QAM 10/26/20 10/26/20 History Allergies Allergy/AdvReac Type Severity Reaction Status Date / Time Sulfa (Sulfonamide Allergy Swelling Verified 10/26/20 23:46 Antibiotics) of Lip/Tongue/Throat lactose AdvReac Unknown Verified 10/26/20 23:46 Past Med/Surg History Medical History Bladder stone Diabetes HLD (hyperlipidemia) HTN (hypertension) Hypertension Nephrolithiasis Neurogenic bladder Osteomyelitis Pemphigoid Pemphigus foliaceus Sacral wound Suprapubic catheter Surgical History History of hip surgery History of suprapubic catheter Previous back surgery Family History Mother Cancer Father Diabetes Grandfather Diabetes Social History Smoking Status: Never smoker Hx Alcohol Use: No Hx Substance Use: No Preferred Language: Wolof Communication Ability: Effective Event Organizer Required: No Beliefs That Will Affect Care: None marital status: Single Current Living Situation: Alone Current Living Situation Comment: caregiver at [facility] Feels Safe at Home: Yes during the past year weight has: decreased > 10 lbs Assistive Devices: Glasses Review of Systems See HPI for pertinent positives & negatives. and A total of 10 systems reviewed and were otherwise negative Physical Exam Vital Signs Vital Signs - 24 hr 10/26/20 21:51 10/26/20 22:00 10/26/20 22:01 Temperature 37.0 C Temperature Source Oral Pulse Rate 84 80 83 Pulse Rate from SpO2 Sensor 81 83 Pulse Rhythm Regular Pulse Strength Normal Respiratory Rate 19 22 22 Respiratory Effort / Characteristics Non-Labored Respiratory Depth Normal Respiratory Pattern Regular Blood Pressure 164/115 H Blood Pressure Mean 131 Pulse Oximetry 98 97 97 Oxygen Delivery Method Room Air Sepsis Recent Fever Within 48 Hours No Sepsis New/Unexplained Change in Mental Status No Sepsis Action Taken by Nursing No Action Required 10/26/20 22:30 10/26/20 22:31 10/26/20 22:47 Temperature Temperature Source Pulse Rate 67 67 75 Pulse Rate from SpO2 Sensor 68 66 72 Pulse Rhythm Pulse Strength Respiratory Rate 15 20 19 Respiratory Effort / Characteristics Respiratory Depth Respiratory Pattern Blood Pressure 159/96 H Blood Pressure Mean 117 Pulse Oximetry 96 96 98 Oxygen Delivery Method Sepsis Recent Fever Within 48 Hours Sepsis New/Unexplained Change in Mental Status Sepsis Action Taken by Nursing 10/26/20 23:00 10/26/20 23:01 10/26/20 23:15 Temperature Temperature Source Pulse Rate 63 66 72 Pulse Rate from SpO2 Sensor 64 66 73 Pulse Rhythm Pulse Strength Respiratory Rate 15 16 22 Respiratory Effort / Characteristics Respiratory Depth Respiratory Pattern Blood Pressure 123/80 135/86 Blood Pressure Mean 94 102 Pulse Oximetry 96 96 98 Oxygen Delivery Method Sepsis Recent Fever Within 48 Hours Sepsis New/Unexplained Change in Mental Status Sepsis Action Taken by Nursing 10/26/20 23:27 10/26/20 23:30 10/26/20 23:31 Temperature Temperature Source Pulse Rate 69 68 Pulse Rate from SpO2 Sensor 70 70 Pulse Rhythm Pulse Strength Respiratory Rate 17 19 Respiratory Effort / Characteristics Non-Labored Respiratory Depth Normal Respiratory Pattern Blood Pressure 165/84 H Blood Pressure Mean 111 Pulse Oximetry 98 97 Oxygen Delivery Method Room Air Sepsis Recent Fever Within 48 Hours Sepsis New/Unexplained Change in Mental Status Sepsis Action Taken by Nursing 10/26/20 23:45 10/27/20 00:00 10/27/20 00:01 Temperature Temperature Source Pulse Rate 76 66 66 Pulse Rate from SpO2 Sensor 76 67 66 Pulse Rhythm Pulse Strength Respiratory Rate 17 17 18 Respiratory Effort / Characteristics Respiratory Depth Respiratory Pattern Blood Pressure 123/83 Blood Pressure Mean 96 Pulse Oximetry 97 95 95 Oxygen Delivery Method Sepsis Recent Fever Within 48 Hours Sepsis New/Unexplained Change in Mental Status Sepsis Action Taken by Nursing 10/27/20 00:15 10/27/20 00:30 10/27/20 00:31 Temperature Temperature Source Pulse Rate 66 71 71 Pulse Rate from SpO2 Sensor 66 70 70 Pulse Rhythm Pulse Strength Respiratory Rate 20 18 21 Respiratory Effort / Characteristics Respiratory Depth Respiratory Pattern Blood Pressure 134/88 171/92 H Blood Pressure Mean 103 118 Pulse Oximetry 92 96 96 Oxygen Delivery Method Sepsis Recent Fever Within 48 Hours Sepsis New/Unexplained Change in Mental Status Sepsis Action Taken by Nursing 10/27/20 00:45 10/27/20 01:00 10/27/20 01:01 Temperature Temperature Source Pulse Rate 64 73 81 Pulse Rate from SpO2 Sensor 65 72 77 Pulse Rhythm Pulse Strength Respiratory Rate 18 17 20 Respiratory Effort / Characteristics Respiratory Depth Respiratory Pattern Blood Pressure 122/81 Blood Pressure Mean 94 Pulse Oximetry 91 96 97 Oxygen Delivery Method Sepsis Recent Fever Within 48 Hours Sepsis New/Unexplained Change in Mental Status Sepsis Action Taken by Nursing 10/27/20 01:02 10/27/20 01:16 10/27/20 01:30 Temperature Temperature Source Pulse Rate 70 67 78 Pulse Rate from SpO2 Sensor 73 67 Pulse Rhythm Pulse Strength Respiratory Rate 20 15 25 H Respiratory Effort / Characteristics Respiratory Depth Respiratory Pattern Blood Pressure 126/83 Blood Pressure Mean 97 Pulse Oximetry 97 96 Oxygen Delivery Method Sepsis Recent Fever Within 48 Hours Sepsis New/Unexplained Change in Mental Status Sepsis Action Taken by Nursing 10/27/20 01:45 10/27/20 02:00 10/27/20 02:01 Temperature Temperature Source Pulse Rate 74 73 78 Pulse Rate from SpO2 Sensor Pulse Rhythm Pulse Strength Respiratory Rate 25 H 18 31 H Respiratory Effort / Characteristics Respiratory Depth Respiratory Pattern Blood Pressure 147/89 H 138/101 H Blood Pressure Mean 108 113 Pulse Oximetry Oxygen Delivery Method Sepsis Recent Fever Within 48 Hours Sepsis New/Unexplained Change in Mental Status Sepsis Action Taken by Nursing 10/27/20 02:16 10/27/20 02:30 10/27/20 02:31 Temperature Temperature Source Pulse Rate 73 71 69 Pulse Rate from SpO2 Sensor Pulse Rhythm Pulse Strength Respiratory Rate 16 21 18 Respiratory Effort / Characteristics Respiratory Depth Respiratory Pattern Blood Pressure 181/92 H 160/89 H Blood Pressure Mean 121 112 Pulse Oximetry Oxygen Delivery Method Sepsis Recent Fever Within 48 Hours Sepsis New/Unexplained Change in Mental Status Sepsis Action Taken by Nursing 10/27/20 02:46 10/27/20 02:48 10/27/20 02:50 Temperature Temperature Source Pulse Rate 78 73 61 Pulse Rate from SpO2 Sensor Pulse Rhythm Pulse Strength Respiratory Rate 24 20 20 Respiratory Effort / Characteristics Respiratory Depth Respiratory Pattern Blood Pressure Blood Pressure Mean Pulse Oximetry Oxygen Delivery Method Sepsis Recent Fever Within 48 Hours Sepsis New/Unexplained Change in Mental Status Sepsis Action Taken by Nursing 10/27/20 02:52 Temperature Temperature Source Pulse Rate 91 H Pulse Rate from SpO2 Sensor Pulse Rhythm Pulse Strength Respiratory Rate 22 Respiratory Effort / Characteristics Respiratory Depth Respiratory Pattern Blood Pressure Blood Pressure Mean Pulse Oximetry Oxygen Delivery Method Sepsis Recent Fever Within 48 Hours Sepsis New/Unexplained Change in Mental Status Sepsis Action Taken by Nursing Vital signs reviewed. General: Chronically ill-appearing 50-year-old male, in no significant distress. HEENT: No scleral icterus, PERRLA, neck supple. Atraumatic. Cardiovascular: Regular rate and rhythm, no extra sounds. Pulmonary: Clear to auscultation bilaterally, normal work of breathing. Abdomen: Soft, obese, nontender, nondistended, positive bowel sounds. Suprapubic catheter Musculoskeletal: Atraumatic, no peripheral edema. Neurologic: Patient awake alert and oriented x 3 Skin: Warm, dry, no rash Course Administered Medications Discontinued Medications Al Hydrox/Mg Hydrox/Simethicone (Gi Cocktail Ed Use) 1 dose PO ONE ONE Stop: 10/27/20 01:59 Last Admin: 10/27/20 02:01 Dose: 1 dose Documented by: [id number] Amlodipine Besylate (Amlodipine Besylate 5 Mg Tab) 10 mg PO DAILY SAHIL Stop: 11/26/20 08:59 Last Admin: 10/27/20 08:54 Dose: 10 mg Documented by: [id number] Ascorbic Acid (Ascorbic Acid 500 Mg Tab) 500 mg PO DAILY SAHIL Stop: 11/26/20 08:59 Last Admin: 10/27/20 08:54 Dose: 500 mg Documented by: [id number] Atorvastatin Calcium (Atorvastatin 20 Mg Tab) 20 mg PO DAILY SAHIL Stop: 11/26/20 08:59 Last Admin: 10/27/20 08:54 Dose: 20 mg Documented by: [id number] Baclofen (Baclofen 10 Mg Tab) Confirm Administered Dose 20 mg .ROUTE .STK-MED ONE Stop: 10/27/20 02:58 Last Admin: 10/27/20 03:03 Dose: 20 mg Documented by: [id number] Baclofen (Baclofen 20 Mg Tab) 20 mg PO TID SAHIL Stop: 11/26/20 08:59 Last Admin: 10/27/20 08:54 Dose: 20 mg Documented by: [id number] Ciprofloxacin (Ciprofloxacin 500 Mg Tab) 500 mg PO NOW STA Stop: 10/27/20 01:25 Last Admin: 10/27/20 01:57 Dose: 500 mg Documented by: [id number] Famotidine (Famotidine 40 Mg Tablet) 40 mg PO DAILY SAHIL Stop: 11/26/20 08:59 Last Admin: 10/27/20 08:53 Dose: 40 mg Documented by: [id number] Folic Acid (Folic Acid 1 Mg Tab) 1 mg PO [id number] SAHIL Stop: 11/26/20 08:59 Last Admin: 10/27/20 08:55 Dose: 1 mg Documented by: [id number] Heparin Sodium (Porcine) (Heparin Sod 5,000 Unit/0.5 Ml Vial) 7,500 units SQ Q8 SAHIL Stop: 11/26/20 05:59 Last Admin: 10/27/20 05:53 Dose: 7,500 units Documented by: [id number] Sodium Chloride (Nss) 500 mls @ 999 mls/hr IV .Q31M SAHIL Stop: 10/26/20 23:45 Last Infusion: 10/27/20 04:36 Dose: 0 mls/hr Documented by: [id number] Admin: 10/26/20 23:15 Dose: 999 mls/hr Documented by: [id number] Sodium Chloride (Nss 1000ml) 1,000 mls @ 100 mls/hr IV .Q10H [facility] Stop: 10/27/20 09:14 Last Infusion: 10/27/20 04:36 Dose: 0 mls/hr Documented by: [id number] Admin: 10/27/20 00:00 Dose: 100 mls/hr Documented by: [id number] Potassium Chloride/Sodium Chloride (Normal Saline W/20 Meq Kcl) 20 meq in 1,000 mls @ 100 mls/hr IV .Q10H [facility] Stop: 11/26/20 04:22 Last Admin: 10/27/20 05:06 Dose: 100 mls/hr Documented by: [id number] Insulin Aspart (Insulin Aspart 100 Units/Ml 3 Ml Pen) 0 units SC ACHS [facility] Stop: 11/26/20 07:29 Last Admin: 10/27/20 12:34 Dose: 3 units Documented by: [id number] Cosigned by: [id number] Admin: 10/27/20 09:12 Dose: Not Given Documented by: [id number] Lisinopril (Lisinopril 40 Mg Tab) 40 mg PO DAILY SAHIL Stop: 11/26/20 08:59 Last Admin: 10/27/20 08:53 Dose: 40 mg Documented by: [id number] Methenamine Hippurate (Methenamine Hippurate 1 Gm Tab) 1 gm PO BID SAHIL Stop: 11/26/20 08:59 Last Admin: 10/27/20 08:55 Dose: 1 gm Documented by: [id number] Miscellaneous (Clobetasol~Order Awaiting Action) 1 ea N/A QS SAHIL Stop: 11/26/20 07:59 Last Admin: 10/27/20 08:53 Dose: Not Given Documented by: [id number] Ondansetron HCl (Ondansetron Inj 2 Mg/Ml 2 Ml Vial) 4 mg IV NOW STA Stop: 10/26/20 23:08 Last Admin: 10/26/20 23:15 Dose: 4 mg Documented by: [id number] Oxybutynin Chloride (Oxybutynin Chloride 5 Mg Tab) 5 mg PO TID SAHIL Stop: 11/26/20 08:59 Last Admin: 10/27/20 08:54 Dose: 5 mg Documented by: [id number] Potassium Chloride (Potassium Chloride Crtab 20 Meq Tabcr) 20 meq PO DAILY SAHIL Stop: 11/26/20 08:59 Last Admin: 10/27/20 08:55 Dose: 20 meq Documented by: [id number] Prednisone (Prednisone 20 Mg Tab) 20 mg PO DAILY SAHIL Stop: 11/26/20 08:59 Last Admin: 10/27/20 08:55 Dose: 20 mg Documented by: [id number] Medical Decision Making Differential Diagnosis Gastroenteritis, food borne illness, infections, appendicitis, diverticulitis, inflammatory bowel disease, obstruction, GI bleed, biliary pathology, volvulus, as well as other pathologies. Medical Records Attestation: I reviewed the patient's medical records. Home Medications Current Medication List: was personally reviewed by me Laboratory Data Attestation: I reviewed the patient's lab results. Result diagrams: 10/26/20 22:20 10/26/20 22:20 Lab Results 10/26/20 10/26/20 10/26/20 Range/Units 22:20 22:20 22:50 WBC 12.87 H (4.8-10.8) K/uL RBC 4.63 L (4.7-6.1) M/uL Hgb 13.2 L (14.0-18.0) g/dL Hct 39.0 L (42-52) % MCV 84.2 (80-100) fL MCH 28.5 (25-34) pg MCHC 33.8 (32-36) g/dL RDW Std Deviation 47.2 H (36.4-46.3) fL RDW Coeff of Sandor 15.5 H (11.5-14.5) % Plt Count 306 (130-400) K/uL MPV 11.4 H (7.4-10.4) fL Immature Gran % (Auto) 0.2 % Neut % (Auto) 84.0 % Lymph % (Auto) 7.6 % [place] % (Auto) 7.5 % Eos % (Auto) 0.6 % Baso % (Auto) 0.1 % Neut # (Auto) 10.82 H (1.4-6.5) K/uL Lymph # (Auto) 0.98 L (1.2-3.4) K/uL [place] # (Auto) 0.96 H (0.11-0.59) K/uL Eos # (Auto) 0.08 (0-0.5) K/uL Baso # (Auto) 0.01 (0-0.2) K/uL Immature Gran # (Auto) 0.02 (0.00-0.02) K/uL Sodium 131 L (136-145) mmol/L Potassium 3.5 (3.5-5.1) mmol/L Chloride 97 L (98-107) mmol/L Carbon Dioxide 23 (21-32) mmol/L Anion Gap 11.0 (3-11) BUN 9 (7-18) mg/dl Creatinine 0.40 L (0.6-1.4) mg/dl Est Cr Clr Drug Dosing 280.6 ml/min Est GFR ( Amer) > 150.0 Est GFR (Non-Af Amer) 138.5 BUN/Creatinine Ratio 22.6 H (10-20) Glucose 117 H (70-99) mg/dl Calcium 8.6 (8.5-10.1) mg/dl Total Bilirubin 1.0 (0.2-1) mg/dl AST 13 L (15-37) U/L ALT 26 (12-78) U/L Alkaline Phosphatase 72 (45-117) U/L Total Protein 6.9 (6.4-8.2) gm/dl Albumin 3.4 (3.4-5.0) gm/dl Globulin 3.5 (2.5-4.0) gm/dl Albumin/Globulin Ratio 1.0 (0.9-2) Lipase 164 (73-393) U/L Urine Color Yellow Urine Appearance Clear (Clear) Urine pH 6.5 (4.5-7.5) Ur Specific [place] 1.008 (1.000-1.030) Urine Protein Negative (Negative) Urine Glucose (UA) Negative (Negative) Urine Ketones 2+ H (Negative) Urine Blood Negative (Negative) Urine Nitrite Negative (Negative) Urine Bilirubin Negative (Negative) Urine Urobilinogen Negative (Negative) Ur Leukocyte Esterase 1+ H (Negative) Urine WBC (Auto) 10-30 H (0-5) /hpf Urine RBC (Auto) 0-4 (0-4) /hpf U Hyaline Cast (Auto) 1-5 (0-5) /lpf U Epithel Cells (Auto) 10-20 H (0-5) /lpf Urine Bacteria (Auto) Negative (Negative) COVID-19 Eval Order SARS-CoV-2 (PCR) (Negative) Influenza Type A (PCR) (Neg) Influenza Type B (PCR) (Neg) RSV (RT-PCR) (Neg) 10/26/20 10/26/20 Range/Units 23:58 23:58 WBC (4.8-10.8) K/uL RBC (4.7-6.1) M/uL Hgb (14.0-18.0) g/dL Hct (42-52) % MCV (80-100) fL MCH (25-34) pg MCHC (32-36) g/dL RDW Std Deviation (36.4-46.3) fL RDW Coeff of Sandor (11.5-14.5) % Plt Count (130-400) K/uL MPV (7.4-10.4) fL Immature Gran % (Auto) % Neut % (Auto) % Lymph % (Auto) % [place] % (Auto) % Eos % (Auto) % Baso % (Auto) % Neut # (Auto) (1.4-6.5) K/uL Lymph # (Auto) (1.2-3.4) K/uL [place] # (Auto) (0.11-0.59) K/uL Eos # (Auto) (0-0.5) K/uL Baso # (Auto) (0-0.2) K/uL Immature Gran # (Auto) (0.00-0.02) K/uL Sodium (136-145) mmol/L Potassium (3.5-5.1) mmol/L Chloride (98-107) mmol/L Carbon Dioxide (21-32) mmol/L Anion Gap (3-11) BUN (7-18) mg/dl Creatinine (0.6-1.4) mg/dl Est Cr Clr Drug Dosing ml/min Est GFR ( Amer) Est GFR (Non-Af Amer) BUN/Creatinine Ratio (10-20) Glucose (70-99) mg/dl Calcium (8.5-10.1) mg/dl Total Bilirubin (0.2-1) mg/dl AST (15-37) U/L ALT (12-78) U/L Alkaline Phosphatase (45-117) U/L Total Protein (6.4-8.2) gm/dl Albumin (3.4-5.0) gm/dl Globulin (2.5-4.0) gm/dl Albumin/Globulin Ratio (0.9-2) Lipase (73-393) U/L Urine Color Urine Appearance (Clear) Urine pH (4.5-7.5) Ur Specific [place] (1.000-1.030) Urine Protein (Negative) Urine Glucose (UA) (Negative) Urine Ketones (Negative) Urine Blood (Negative) Urine Nitrite (Negative) Urine Bilirubin (Negative) Urine Urobilinogen (Negative) Ur Leukocyte Esterase (Negative) Urine WBC (Auto) (0-5) /hpf Urine RBC (Auto) (0-4) /hpf U Hyaline Cast (Auto) (0-5) /lpf U Epithel Cells (Auto) (0-5) /lpf Urine Bacteria (Auto) (Negative) COVID-19 Eval Order CovFluRsv at [facility] SARS-CoV-2 (PCR) NEGATIVE (Negative) Influenza Type A (PCR) Negative (Neg) Influenza Type B (PCR) Negative (Neg) RSV (RT-PCR) Negative (Neg) Imaging Data Radiologist's Impression: Chest X-Ray 10/26/20 23:22 XR chest 1V portable CLINICAL HISTORY: Nausea COMPARISON STUDY: March 30, 2020 FINDINGS: The heart is enlarged. There is no failure. There is no focal pulmonary consolidation. There are no pleural effusions. Postsurgical changes are present within the cervical spine.[ IMPRESSION: No active disease in the chest. ACT 112: Negative or not required by law. Electronically signed by: Sohail Aguayo M.D. 10/27/2020 8:35 AM KUB X-Ray 10/26/20 23:22 KUB HISTORY: Acute vomiting with diarrhea Vomiting, diarrhea COMPARISON: Chest radiograph of same day FINDINGS: Cardiac silhouette is enlarged. Mild gaseous distention of the stoma ch. Air-filled loops of large and small bowel with nonobstructive bowel gas pattern. No renal calculi. No ureteral calculi. No pneumoperitoneum or pneumatosis. The osseous structures are not well visualized secondary to patient body habitus. IMPRESSION: 1. Nonobstructive bowel gas pattern. 2. Air-filled distended stomach with air-filled loops of large and small bowel, possibly reflective of ileus. ACT 112: Negative or not required by law. The above report was generated using voice recognition software. It may contain grammatical, syntax or spelling errors. Electronically signed by: Rachid Solano M.D. 10/27/2020 8:45 AM ECG Data Attestation: I personally reviewed and interpreted this ECG as follows: Indication: + nausea Rate (beats per minute): 75 Rhythm: + normal sinus ECG Intervals/blocks: + Normal QT-c ECG Findings: + Q waves (Anterior) and + Other (T wave abnormality in the anterior leads) Comparison ECG Date: from (03/30/2020) Change: no significant change MDM Narrative This patient was evaluated and appeared to be in no significant distress. IV access was obtained and laboratory work was drawn. An order for cardiac monitoring was placed and the patient is noted to be in a normal sinus rhythm at 83 bpm. Patient was hydrated with normal saline solution. Laboratory work was fairly reassuring. Patient was given a dose of Cipro 500 mg orally for possible UTI. Abdominal and chest x-rays were performed and reveal likely ileus, no evidence of obstruction. I did reevaluate the patient and informed him of the findings. He expressed concern over not having caregivers this weekend. He has no caregiver to receive him at the home this evening and no one will be there tomorrow. He is scheduled to go to resp[facility] for the weekend at a local [facility] facility. He states he will need to be hospitalized as he has no safe disposition or family member to care for him. Dr. Garcia of the hospitalist service was consulted for further management. Impression & Plan Diarrhea, Suprapubic catheter, Quadriplegia, Abnormal urinalysis Discharge Plan Visit Data Chief Complaint: Illness ED Provider: Tammie Breen Discharge Problem: Diarrhea, Suprapubic catheter, Quadriplegia, Abnormal urinalysis Patient Disposition: Admitted As Inpatient Condition: Good Discharge Instructions Interventions: ED Discharge Assessment Last Done: 10/27/20 03:56 Discharge Problem: Diarrhea Qualifiers: Diarrhea type: unspecified type Qualified Code(s): R19.7 - Diarrhea, unspecified
[2020-10-27] MEDS ORDERED: GLUCOSE 10 TABS/TUBE PO PRN (04:23)
[2020-10-27] MEDS ORDERED: DICLOFENAC SOD 1% GEL 100 GM TUBE EXT PRN (04:23)
[2020-10-27] MEDS ORDERED: ACETAMINOPHEN 325 MG TAB PO PRN (04:23)
[2020-10-27] MEDS ORDERED: ONDANSETRON INJ 2 MG/ML 2 ML VIAL IV PRN (04:23)
[2020-10-27] MEDS ORDERED: CARBOHYDRATES FOR HYPOGLYCEMIA PO PRN (04:23)
[2020-10-27] MEDS ORDERED: GLUCOSE 40% GEL 15 GM TUBE PO PRN (04:23)
[2020-10-27] MEDS ORDERED: GLUCAGON FOR INJ 1 MG VIAL SQ PRN (04:23)
[2020-10-27] MEDS ORDERED: bisacodyL 10 MG SUPP PR PRN (04:23)
[2020-10-27] MEDS ORDERED: DEXTROSE 50% 50 ML SYRINGE IV PRN (04:23)
[2020-10-27] MEDS ORDERED: NSS + 20MEQ KCL 20 MEQ/1,000 ML BAG IV SCH (04:23)
--- NOTE | 2020-10-27 04:43 | History & Physical Report ---
Date of Service October 27, 2020 Assessment & Plan (1) Recurrent UTI (urinary tract infection): Recurrent UTI/urinary retention/suprapubic catheter- Received initial dose of Cipro 500 mg p.o. in the ED. Hold further antibiotics until culture and sensitivity has returned NSS + KCl 20 mEq at 100 mils per hour Present on Admission?: Yes (2) Urinary retention: See above Present on Admission?: Yes (3) HTN (hypertension): Continue amlodipine and lisinopril with hold parameters Present on Admission?: Yes (4) HLD (hyperlipidemia): Continue atorvastatin 20 mg daily Present on Admission?: Yes (5) Diabetes: Hold glipizide and Metformin Placed on Accu-Cheks before meals and at bedtime with NovoLog coverage per scale Check hemoglobin A1c Present on Admission?: Yes (6) Suprapubic catheter: See above Follows with urology Present on Admission?: Yes (7) Pemphigus foliaceus: Continue prednisone, but increase from 10 to 20 mg daily x3 days for adrenal insufficiency Present on Admission?: Yes (8) Quadriplegia: Continue usual supportive medications, and decubitus preventions Present on Admission?: Yes Admission and Anticipated Discharge Date Admission Date: October 27, 2020 History of Present Illness Chief Complaint: The patient presents to the emergency department with complaint of muscle spasm, generalized fatigue, generalized malaise Primary Care Provider: NO PCP The patient is a 50-year-old male with a past medical history of quadriplegia, suprapubic catheter, recurrent sacral decubiti, recurrent urinary tract infections, weakness, anemia, pemphigus foliaceus, osteomyelitis, hyponatremia, sepsis, hypertension, hyperlipidemia, pemphigoid, diabetes mellitus and previous back surgery. He presents with symptoms as noted above. Work-up in the emergency department reveals a potential urinary tract infection, however, patient does live alone, and does not have caretakers to help him this weekend, and will need to be admitted for care. Allergies Allergy/AdvReac Type Severity Reaction Status Date / Time Sulfa (Sulfonamide Allergy Swelling Verified 10/26/20 23:46 Antibiotics) of Lip/Tongue/Throat lactose AdvReac Unknown Verified 10/26/20 23:46 Home Medications Medication Instructions Recorded Confirmed Type amlodipine 10 mg PO DAILY 05/11/18 10/26/20 History atorvastatin 20 mg PO DAILY 05/11/18 10/26/20 History baclofen 20 mg PO TID 05/11/18 10/26/20 History folic acid 1 mg PO 6XWK 05/11/18 10/26/20 History metformin 1,000 mg PO AMPM 05/11/18 10/26/20 History methenamine hippurate 1 g PO BID 05/11/18 10/26/20 History methotrexate sodium 15 mg PO WK 05/11/18 10/26/20 History oxybutynin chloride 5 mg PO TID 05/11/18 10/26/20 History prednisone 10 mg PO DAILY 05/11/18 10/26/20 History ascorbic acid (vitamin C) [Vitamin 500 mg PO DAILY 09/11/18 10/26/20 History C] bisacodyl 10 mg NE Q OTHER DAY PRN 09/11/18 10/26/20 History clobetasol 1 applic TOPICAL QS PRN 09/11/18 10/26/20 History diclofenac sodium [Voltaren] See Rx Instructions .ROUTE 09/11/18 10/26/20 Rx .COMPLEX #100 gm potassium chloride 20 meq PO DAILY 09/11/18 10/26/20 History lactulose [Enulose] 10 ml PO Q OTHER DAY PRN 11/02/18 10/26/20 History lisinopril 40 mg PO DAILY 11/02/18 10/26/20 History famotidine 40 mg PO DAILY 03/30/20 10/26/20 History glipizide 10 mg PO QAM 10/26/20 10/26/20 History Past Med/Surg History Medical History (Updated 10/05/20 @ 12:21 by Farshad Worthington) Bladder stone Diabetes HLD (hyperlipidemia) HTN (hypertension) Hypertension Nephrolithiasis Neurogenic bladder Osteomyelitis Pemphigoid Pemphigus foliaceus Sacral wound Suprapubic catheter Surgical History History of hip surgery History of suprapubic catheter Previous back surgery Family History (Updated 10/05/20 @ 12:19 by Farshad Worthington) Mother Cancer Father Diabetes Grandfather Diabetes Social History Smoking Status: Never smoker Hx Alcohol Use: No Hx Substance Use: No Preferred Language: Albanian Communication Ability: Effective [employer] Education Director Required: No Beliefs That Will Affect Care: None marital status: Single Current Living Situation: Alone Current Living Situation Comment: caregiver at [facility] Feels Safe at Home: Yes Safety Concerns: Feels Safe At This Time during the past year weight has: decreased > 10 lbs Assistive Devices: Glasses Review of Systems Review of Systems: The patient denies chest pain, palpitations, shortness of breath, dyspnea on exertion, cough, lower extremity swelling, sore throat, fevers, chills, sweats, nausea, vomiting, diarrhea , constipation, abdominal pain, pelvic pain, blood in urine or stool, lightheadedness, dizziness, headache, memory loss, loss of consciousness, generalized arthralgias or myalgias, or night sweats. The review of systems is otherwise negative other than for that already noted above, and at least 10 systems have been reviewed. Physical Exam Physical Exam: The patient is awake, alert and oriented 3, well developed and well nourished, normocephalic and atraumatic, lying in bed and in no acute distress. HEENT--PERRL, EOMI, mucous membranes and oropharynx dry. Neck--supple. No JVD. No bruits. Thyroid normal, trachea midline, no adenopathy. Heart--normal S1 and S2. No murmurs, rubs or gallops. Lungs--clear bilaterally, no respiratory distress, no accessory muscle use. Abdomen--normal bowel sounds and soft. Nontender. Nondistended. Morbidly obese Extremities--no cyanosis or clubbing. No edema. Dermatologic--normal skin turgor and color Neurologic/rheumatologic--paraplegia Psychiatric--normal affect. Results & Data Results & Data ([facility]) Vital Signs (Past 12 Hours) Vital Signs Temp Pulse Pulse Resp BP BP Pulse Ox 10/27/20 04:10 97.9 F 87 16 189/101 H 98 10/27/20 03:56 61 18 132/80 96 10/27/20 03:00 61 18 131/80 96 10/27/20 02:52 91 H 22 10/27/20 02:50 61 20 10/27/20 02:48 73 20 10/27/20 02:46 78 24 10/27/20 02:31 69 18 10/27/20 02:30 71 21 160/89 H 10/27/20 02:16 73 16 181/92 H 10/27/20 02:01 78 31 H 10/27/20 02:00 73 18 138/101 H 10/27/20 01:45 74 25 H 147/89 H 10/27/20 01:30 78 25 H 10/27/20 01:16 67 15 126/83 96 10/27/20 01:02 70 20 97 10/27/20 01:01 81 20 97 10/27/20 01:00 73 17 96 10/27/20 00:45 64 18 122/81 91 10/27/20 00:31 71 21 96 10/27/20 00:30 71 18 171/92 H 96 10/27/20 00:15 66 20 134/88 92 10/27/20 00:01 66 18 95 10/27/20 00:00 66 17 123/83 95 10/26/20 23:45 76 17 97 10/26/20 23:31 68 19 165/84 H 97 10/26/20 23:30 69 17 98 10/26/20 23:15 72 22 135/86 98 10/26/20 23:01 66 16 96 10/26/20 23:00 63 15 123/80 96 10/26/20 22:47 75 19 159/96 H 98 10/26/20 22:31 67 20 96 10/26/20 22:30 67 15 96 10/26/20 22:01 83 22 97 10/26/20 22:00 80 22 164/115 H 97 10/26/20 21:51 98.6 F 84 19 98 Laboratory Results Laboratory Results WBC 12.87 K/uL (4.8-10.8) H 10/26/20 22:20 RBC 4.63 M/uL (4.7-6.1) L 10/26/20 22:20 Hgb 13.2 g/dL (14.0-18.0) L 10/26/20 22:20 Hct 39.0 % (42-52) L 10/26/20 22:20 MCV 84.2 fL (80-100) 10/26/20 22:20 MCH 28.5 pg (25-34) 10/26/20 22:20 MCHC 33.8 g/dL (32-36) 10/26/20 22:20 RDW Std Deviation 47.2 fL (36.4-46.3) H 10/26/20 22:20 RDW Coeff of Sandor 15.5 % (11.5-14.5) H 10/26/20 22:20 Plt Count 306 K/uL (130-400) 10/26/20 22:20 MPV 11.4 fL (7.4-10.4) H 10/26/20 22:20 Immature Gran % (Auto) 0.2 % 10/26/20 22:20 Neut % (Auto) 84.0 % 10/26/20 22:20 Lymph % (Auto) 7.6 % 10/26/20 22:20 [place] % (Auto) 7.5 % 10/26/20 22:20 Eos % (Auto) 0.6 % 10/26/20 22:20 Baso % (Auto) 0.1 % 10/26/20 22:20 Neut # (Auto) 10.82 K/uL (1.4-6.5) H 10/26/20 22:20 Lymph # (Auto) 0.98 K/uL (1.2-3.4) L 10/26/20 22:20 [place] # (Auto) 0.96 K/uL (0.11-0.59) H 10/26/20 22:20 Eos # (Auto) 0.08 K/uL (0-0.5) 10/26/20 22:20 Baso # (Auto) 0.01 K/uL (0-0.2) 10/26/20 22:20 Immature Gran # (Auto) 0.02 K/uL (0.00-0.02) 10/26/20 22:20 Sodium 131 mmol/L (136-145) L 10/26/20 22:20 Potassium 3.5 mmol/L (3.5-5.1) 10/26/20 22:20 Chloride 97 mmol/L (98-107) L 10/26/20 22:20 Carbon Dioxide 23 mmol/L (21-32) 10/26/20 22:20 Anion Gap 11.0 (3-11) 10/26/20 22:20 BUN 9 mg/dl (7-18) 10/26/20 22:20 Creatinine 0.40 mg/dl (0.6-1.4) L 10/26/20 22:20 Est Cr Clr Drug Dosing 280.6 ml/min 10/26/20 22:20 Est GFR ( Amer) > 150.0 10/26/20 22:20 Est GFR (Non-Af Amer) 138.5 10/26/20 22:20 BUN/Creatinine Ratio 22.6 (10-20) H 10/26/20 22:20 Glucose 117 mg/dl (70-99) H 10/26/20 22:20 POC Glucose 125 mg/dl (70-99) H 10/27/20 04:28 Calcium 8.6 mg/dl (8.5-10.1) 10/26/20 22:20 Total Bilirubin 1.0 mg/dl (0.2-1) 10/26/20 22:20 AST 13 U/L (15-37) L 10/26/20 22:20 ALT 26 U/L (12-78) 10/26/20 22:20 Alkaline Phosphatase 72 U/L (45-117) 10/26/20 22:20 Total Protein 6.9 gm/dl (6.4-8.2) 10/26/20 22:20 Albumin 3.4 gm/dl (3.4-5.0) 10/26/20 22:20 Globulin 3.5 gm/dl (2.5-4.0) 10/26/20 22:20 Albumin/Globulin Ratio 1.0 (0.9-2) 10/26/20 22:20 Lipase 164 U/L (73-393) 10/26/20 22:20 Urine Color Yellow 10/26/20 22:50 Urine Appearance Clear (Clear) 10/26/20 22:50 Urine pH 6.5 (4.5-7.5) 10/26/20 22:50 Ur Specific [place] 1.008 (1.000-1.030) 10/26/20 22:50 Urine Protein Negative (Negative) 10/26/20 22:50 Urine Glucose (UA) Negative (Negative) 10/26/20 22:50 Urine Ketones 2+ (Negative) H 10/26/20 22:50 Urine Blood Negative (Negative) 10/26/20 22:50 Urine Nitrite Negative (Negative) 10/26/20 22:50 Urine Bilirubin Negative (Negative) 10/26/20 22:50 Urine Urobilinogen Negative (Negative) 10/26/20 22:50 Ur Leukocyte Esterase 1+ (Negative) H 10/26/20 22:50 Urine WBC (Auto) 10-30 /hpf (0-5) H 10/26/20 22:50 Urine RBC (Auto) 0-4 /hpf (0-4) 10/26/20 22:50 U Hyaline Cast (Auto) 1-5 /lpf (0-5) 10/26/20 22:50 U Epithel Cells (Auto) 10-20 /lpf (0-5) H 10/26/20 22:50 Urine Bacteria (Auto) Negative (Negative) 10/26/20 22:50 COVID-19 Eval Order CovFluRsv at [facility] 10/26/20 23:58 SARS-CoV-2 (PCR) NEGATIVE (Negative) 10/26/20 23:58 Influenza Type A (PCR) Negative (Neg) 10/26/20 23:58 Influenza Type B (PCR) Negative (Neg) 10/26/20 23:58 RSV (RT-PCR) Negative (Neg) 10/26/20 23:58 Code Status & VTE Plan Code Status Full code VTE Prophylaxis Plan VTE Prophylaxis will be ordered: Yes PG Care Time/CCT Total # of Minutes Spent Total Time Spent with Patient: Total time spent is greater than 50% in coordination of care (as documented) at patient's floor/unit and/or counseling patient: Coding Level of Care Code 68931 Initial Inpt Care Lvl 3 Diagnoses Recurrent UTI (urinary tract infection) N39.0 Urinary retention R33.9 HTN (hypertension) I10 HLD (hyperlipidemia) E78.5 Diabetes E11.9 Suprapubic catheter Z93.59 Pemphigus foliaceus L10.2 Quadriplegia G82.50
[2020-10-27] MEDS ORDERED: LACTULOSE SYRUP 10 GM/15 ML BTL 960 ML PO PRN (05:13)
[2020-10-27] MEDS ORDERED: HEPARIN SOD 5,000 UNIT/0.5 ML VIAL SQ SCH (06:00)
[2020-10-27] MEDS ORDERED: CLOBETASOL~ORDER AWAITING ACTION SCH (08:00)
--- NOTE | 2020-10-27 08:37 | XRay Report ---
XR chest 1V portable CLINICAL HISTORY: Nausea COMPARISON STUDY: March 30, 2020 FINDINGS: The heart is enlarged. There is no failure. There is no focal pulmonary consolidation. Ther e are no pleural effusions. Postsurgical changes are present within the cervical spine.[ IMPRESSION: No active disease in the chest. ACT 112: Negative or not required by law. Electronically signed by: Sohail Aguayo M.D. 10/27/2020 8:35 AM
--- NOTE | 2020-10-27 08:46 | XRay Report ---
KUB HISTORY: Acute vomiting with diarrhea Vomiting, diarrhea COMPARISON: Chest radiograph of same day FINDINGS: Cardiac silhouette is enlarged. Mild gaseous distention of the stomach. Air-filled loops of large and small bowel with nonobstructive bowel gas pattern. No renal calculi. No ureteral calculi. No pneumoperitoneum or pneumatosis. The osseous structures are not well visualized secondary to joanie ent body habitus. IMPRESSION: 1. Nonobstructive bowel gas pattern. 2. Air-filled distended stomach with air-filled loops of large and small bowel, possibly reflective o f ileus. ACT 112: Negative or not required by law. The above report was generated using voice recognition software. It may contain grammatical, syntax o r spelling errors. Electronically signed by: Rachid Solano M.D. 10/27/2020 8:45 AM
[2020-10-27] MEDS ORDERED: FOLIC ACID 1 MG TAB PO SCH (09:00)
[2020-10-27] MEDS ORDERED: METHENAMINE HIPPURATE 1 GM TAB PO SCH (09:00)
[2020-10-27] MEDS ORDERED: BACLOFEN 20 MG TAB PO SCH (09:00)
[2020-10-27] MEDS ORDERED: FAMOTIDINE 40 MG TABLET PO SCH (09:00)
[2020-10-27] MEDS ORDERED: OXYBUTYNIN CHLORIDE 5 MG TAB PO SCH (09:00)
[2020-10-27] MEDS ORDERED: predniSONE 20 MG TAB PO SCH (09:00)
[2020-10-27] MEDS ORDERED: ATORVASTATIN 20 MG TAB PO SCH (09:00)
[2020-10-27] MEDS ORDERED: amLODIPine BESYLATE 5 MG TAB PO SCH (09:00)
[2020-10-27] MEDS ORDERED: lisinopril 40 MG TAB PO SCH (09:00)
[2020-10-27] MEDS ORDERED: ASCORBIC ACID 500 MG TAB PO SCH (09:00)
[2020-10-27] MEDS ORDERED: POTASSIUM CHLORIDE CRTAB 20 MEQ TABCR PO SCH (09:00)
[2020-10-27] MEDS: INSULIN ASPART 100 UNITS/ML 3 ML PEN SC SCH ×2 (09:12→12:34)
--- NOTE | 2020-10-27 12:03 | Discharge Summary ---
Date of Service October 27, 2020 Admission HPI Per Admitting Provider The patient is a 50-year-old male with a past medical history of quadriplegia, suprapubic catheter, recurrent sacral decubiti, recurrent urinary tract infections, weakness, anemia, pemphigus foliaceus, osteomyelitis, hyponatremia, sepsis, hypertension, hyperlipidemia, pemphigoid, diabetes mellitus and previous back surgery. He presents with symptoms as noted above. Work-up in the emergency department reveals a potential urinary tract infection, however, patient does live alone, and does not have caretakers to help him this weekend, and will need to be admitted for care. Admission Exam Per Admitting Provider The patient is awake, alert and oriented 3, well developed and well nourished, normocephalic and atraumatic, lying in bed and in no acute distress. HEENT--PERRL, EOMI, mucous membranes and oropharynx dry. Neck--supple. No JVD. No bruits. Thyroid normal, trachea midline, no adenopathy. Heart--normal S1 and S2. No murmurs, rubs or gallops. Lungs--clear bilaterally, no respiratory distress, no accessory muscle use. Abdomen--normal bowel sounds and soft. Nontender. Nondistended. Morbidly obese Extremities--no cyanosis or clubbing. No edema. Dermatologic--normal skin turgor and color Neurologic/rheumatologic--paraplegia Psychiatric--normal affect. Principal Diagnosis fatigue Discharge Exam Constitutional WD/WN, vitals as above Respiratory normal respiratory effort, lungs clear to auscultation Cardiovascular RRR, no murmur, no edema Gastrointestinal (Abdomen) normal bowel sounds, soft, nontender, no hepatosplenomegaly Musculoskeletal no cyanosis or clubbing, extremities motor strength 5/5 Genitourinary SPT Discharge Data Allergies Allergy/AdvReac Type Severity Reaction Status Date / Time Sulfa (Sulfonamide Allergy Swelling Verified 10/26/20 23:46 Antibiotics) of Lip/Tongue/Throat lactose AdvReac Unknown Verified 10/26/20 23:46 Consultations 10/27/20 01:49 ED Decision to Admit Stat Hospital Course (1) Recurrent UTI (urinary tract infection): Patient initially admitted with possible recurrent UTI. Patient has a suprapubic catheter secondary his long history of urinary retention. Patient has remained afebrile with no issues since his presentation earlier this morning. Initially, the patient was to be transferred from his home to [place] for respite care as his primary caregiver allegedly has tested positive for Covid. Patient was given a single dose of ciprofloxacin in the emergency room and was gently hydrate with normal saline. However, as patient has been afebrile and symptoms are very general, I suspect this may not be a urinary tract infection the patient is at his baseline. Therefore, we will arrange for the patient be transferred [place] as initially planned. His urine and stool cultures are pending and will need to be followed up. If patient has fever, or other symptoms consider urinary tract infection, will need to be reassessed at that facility for possible antibiotic treatment but we will not prescribe 1 at discharge. (2) Urinary retention: See above (3) HTN (hypertension): Continue amlodipine and lisinopril with hold parameters (4) HLD (hyperlipidemia): Continue atorvastatin 20 mg daily (5) Diabetes: Hold glipizide and Metformin Placed on Accu-Cheks before meals and at bedtime with NovoLog coverage per scale Check hemoglobin A1c (6) Suprapubic catheter: See above Follows with urology (7) Pemphigus foliaceus: Continue prednisone, but increase from 10 to 20 mg daily x3 days for adrenal insufficiency (8) Quadriplegia: Continue usual supportive medications, and decubitus preventions Total Time Total Time Spent Total Time Spent (In Minutes): 25 Discharge Plan Discharge Items Patient Disposition: Transfer Care Home Fac Reason For Visit: DIARRHEA, UTI, QUADRIPLEGIA Discharge Diagnosis: 1. Possible recurrent urinary tract infection 2. History of urinary tension, patient has suprapubic tube 3. Hypertension by history 4. Hyperlipidemia by history 5. Diabetes by history 6. Pemphigus foliaceus 7. Quadriplegia at baseline Condition on Discharge: Good Activity: Resume your previous activity Non-emergency contact: Primary Care Provider Call non-emergency contact if: your symptoms worsen and your rectal temperature is above 100.4 Follow-up/Referrals: PCP,NO [Primary Care Provider] - Diet: Carb Consistent or DM2 Addtl Attending Provider Instructions: No antibiotics at this time, will need to follow up on culture results or monitor for symptoms to reassess need for antibiotics. Pending Studies at Discharge: Yes Studies:: stool studies, urine culture pending at time of discharge Stand-Alone Forms: My [facility] Skilled Items Patient informed of condition?: Yes DNR: No Discharge Level of Care: Skilled Communicable Disease: No Discharge Prognosis: Stable Lines: None Urinary Catheter: Yes Medications and DC Order Prescriptions: Continued atorvastatin 20 mg tablet 20 mg PO DAILY RF: 0 amlodipine 10 mg tablet 10 mg PO DAILY RF: 0 prednisone 5 mg tablet 10 mg PO DAILY RF: 0 methenamine hippurate 1 gram tablet 1 g PO BID RF: 0 methotrexate sodium 2.5 mg tablet 15 mg PO WK RF: 0 oxybutynin chloride 5 mg tablet 5 mg PO TID RF: 0 metformin 500 mg tablet extended release 24 hr 1,000 mg PO AMPM RF: 0 baclofen 10 mg tablet 20 mg PO TID RF: 0 folic acid 1 mg tablet 1 mg PO 6XWK RF: 0 potassium chloride 20 mEq tablet,ER particles/crystals 20 meq PO DAILY RF: 0 ascorbic acid (vitamin C) [Vitamin C] 500 mg Tablet 500 mg PO DAILY RF: 0 bisacodyl 10 mg Suppository 10 mg OK Q OTHER DAY PRN (Reason: Constipation) RF: 0 clobetasol 0.025 % Cream 1 applic TOPICAL QS PRN (Reason: ..) RF: 0 diclofenac sodium [Voltaren] 1 % gel See Rx Instructions .ROUTE .COMPLEX Qty: 100 RF: 0 lactulose [Enulose] 10 gram/15 mL solution 10 ml PO Q OTHER DAY PRN (Reason: Corneal Thickening) RF: 0 lisinopril 40 mg tablet 40 mg PO DAILY RF: 0 famotidine 40 mg tablet 40 mg PO DAILY RF: 0 glipizide 10 mg tablet extended release 24hr 10 mg PO QAM RF: 0 Discharge Orders: Discharge Order (Routine); Ordered 10/27/20 Ordered By: Ernie Noble Admission Data Admit Date/Time: 10/27/20 03:13 Attending Provider: Ernie Noble Admit Provider: Santana Villeda Primary Care Provider: PCP,NO Other Providers: Santana Villeda Coding Level of Care Code Admit/DC Same Day >8hr Level 2 Diagnoses Recurrent UTI (urinary tract infection) N39.0 Urinary retention R33.9 HTN (hypertension) I10 HLD (hyperlipidemia) E78.5 Diabetes E11.9 Suprapubic catheter Z93.59 Pemphigus foliaceus L10.2 Quadriplegia G82.50
--- NOTE | 2020-10-28 21:03 | Electrocardiogram Report ---
Test Reason : Blood Pressure : / mmHG Vent. Rate : 075 BPM Atrial Rate : 075 BPM P-R Int : 146 ms QRS Dur : 096 ms QT Int : 398 ms P-R-T Axes : 000 -23 146 degrees QTc Int : 444 ms Poor data quality, interpretation may be adversely affected Normal sinus rhythm Abnormal ECG When compared with ECG of 30-MAR-2020 12:30, T wave inversion now evident in Lateral leads Confirmed by Adrian Bonner ([id number]) on 10/28/2020 9:02:57 PM Referred By: REFERRED SELF Confirmed By:Adrian Bonner
[2020-10-28 22:11] LABS: EAG mmol/L 8.5 (calc)
== END 2020-10-27 13:50 ==
LOC: ED 21:38 → 3W 10-27 03:13 → INTOOBSV 10-27 03:13 → SUATTDRO 10-27 03:13 → 3W 10-27 03:56

== ENCOUNTER 2020-11-05 06:47 | Observation (INO) ==
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
[2020-11-05 07:54] LABS: Appearance Urine Clear (Clear); Bacteria Urine Automated Negative (Negative); Bilirubin Urine Negative (Negative); Blood Urine 2+ (Negative); Color Urine Yellow; Glucose Urine UA Negative (Negative); Ketones Urine 3+ (Negative); Leukocyte Esterase Urine 1+ (Negative); Nitrite Urine Negative (Negative); Protein Urine Negative (Negative); RBC Urine Automated 0-4 /hpf (0-4); Specific Gravity Urine 1.013 (1.000-1.030); Urobilinogen Urine Negative (Negative); pH Urine 5.5 (4.5-7.5)
[2020-11-05] MEDS: SODIUM CHLORIDE 0.9% 500 ML IV SCH ×4 (08:22→21:18)
[2020-11-05 08:41] LABS: Basophils # (auto) 0.02 K/uL (0-0.2); Basophils % (auto) 0.1 %; Eosinophils # (auto) 0.04 K/uL (0-0.5); Eosinophils % (auto) 0.3 %; Hematocrit (blood only) 37.5 % (42-52); Hemoglobin 12.4 g/dL (14.0-18.0); Immature Granulocytes # (auto) 0.03 K/uL (0.00-0.02); Immature Granulocytes % (auto) 0.2 %; Lymphocytes # (auto) 1.39 K/uL (1.2-3.4); Lymphocytes % (auto) 9.9 %; Mean Corpuscular Hemoglobin 28.6 pg (25-34); Mean Corpuscular Hgb Conc 33.1 g/dL (32-36); Mean Corpuscular Volume 86.6 fL (80-100); Mean Platelet Volume 11.1 fL (7.4-10.4); Monocytes # (auto) 1.18 K/uL (0.11-0.59); Monocytes % (auto) 8.4 %; Neutrophils # (auto) 11.39 K/uL (1.4-6.5); Neutrophils % (auto) 81.1 %; Platelet Count 327 K/uL (130-400); RDW Coefficient of Variation 15.7 % (11.5-14.5); RDW Standard Deviation 49.8 fL (36.4-46.3); Red Blood Count 4.33 M/uL (4.7-6.1); White Blood Count 14.05 K/uL (4.8-10.8)
[2020-11-05 08:59] LABS: Albumin Level 3.5 gm/dl (3.4-5.0); BUN Creatinine Ratio 21.8 (10-20); Blood Urea Nitrogen 11 mg/dl (7-18); Calcium 9.4 mg/dl (8.5-10.1); Carbon Dioxide 24 mmol/L (21-32); Chloride 97 mmol/L (98-107); Est GFR (African American) 144.1; Est GFR (Non-African American) 124.3; Glucose 82 mg/dl (70-99); Lipase 756 U/L (73-393); Potassium 4.4 mmol/L (3.5-5.1); Sodium 130 mmol/L (136-145)
--- NOTE | 2020-11-05 09:01 | Ultrasound Report ---
ULTRASOUND BILATERAL LOWER EXTREMITY VENOUS CLINICAL HISTORY: Lower extremity edema. COMPARISON STUDY: No priors. TECHNIQUE: Real-time, grayscale, and color Doppler sonography of the deep veins of the right and left lower extremity was performed from the inguinal crease to the calf. Compression and augmentation wer e utilized. FINDINGS: There is no sonographic evidence of deep venous thrombosis identified in the right or left lower extremity. The common femoral, superficial femoral, and popliteal veins are patent and normally compressible bilaterally. The greater saphenous vein and the profunda femoris vein at the junction w ith the common femoral vein are clear in both legs. The visualized calf veins are patent bilaterally. A prominent left inguinal lymph node measures 2.8 x 1.8 x 2.2 cm. IMPRESSION: 1. There is no sonographic evidence of deep venous thrombosis identified in the right or left lower e xtremity. 2. A prominent left inguinal lymph node may be reactive. Clinical correlation while be required. ACT 112: Negative or not required by law. Electronically signed by: Bartolome Mckay M.D. 11/05/2020 8:59 AM
[2020-11-05 09:04] LABS: Alanine Aminotransferase 27 U/L (12-78); Albumin Globulin Ratio 1.1 (0.9-2); Alkaline Phosphatase 54 U/L (45-117); Aspartate Aminotransferase 14 U/L (15-37); Bilirubin,Total 0.7 mg/dl (0.2-1); Globulin 3.1 gm/dl (2.5-4.0); Total Protein 6.6 gm/dl (6.4-8.2); Troponin I 0.022 ng/ml (0-0.045)
[2020-11-05 09:05] LABS: Partial Thromboplastin Ratio 0.9; Partial Thromboplastin Time 22.5 Seconds (21.0-31.0)
--- NOTE | 2020-11-05 09:11 | XRay Report ---
XR KUB/Abdomen 1 view CLINICAL HISTORY: abd bloating COMPARISON STUDY: 10/26/2020 FINDINGS: There is gaseous prominence of both colonic and small bowel loops. The findings favor an il eus. There are calcific/ossific densities adjacent to the greater trochanter of the left hip. This is incompletely evaluated, but similar to a prior CT scan dated 03/30/2020. There are multiple pelvic ba sin calcifications likely representing phleboliths. There is mottled gas projected over the left obtu rator, likely representing enteric contents. A hernia cannot be excluded. IMPRESSION: 1. Persistent gaseous distention of both large and small bowel loops. Ileus favored over bowel obstru ction. Clinical and radiographic follow-up are recommended. 2. Mottled gas projected over the left obturator region, likely representing enteric contents. A richard ia cannot be excluded with certainty, although given the patient's large body habitus, this likely re presents overlying bowel and related to the obturator canal. 3. Incompletely evaluated calcifications located lateral to the greater trochanter the left hip ACT 112: Negative or not required by law. Electronically signed by: Sohail Aguayo M.D. 11/05/2020 9:09 AM
[2020-11-05] MEDS ORDERED: PIPERACILLIN/TAZOBACTAM 4.5 GM/120 ML BAG IV ONE (10:03)
[2020-11-05] MEDS ORDERED: PIPERACILL/TAZOBAC CONSULT ACTIVE PRN ×2 (10:03→12:50)
--- NOTE | 2020-11-05 11:18 | History & Physical Report ---
Date of Service November 05, 2020 Assessment & Plan (1) Abdominal distention: Concern with abdominal distention, I do see patient has had previous bowel issues. Suspect this may be constipation Patient does have hypotension, elevated lactic acid, leukocytosis. Intra abdominal pathology cannot be clearly excluded. Will follow lactic acid Patient has been given on Zosyn empirically, will continue this in the short- term Check CT of the abdomen pelvis, further work-up depending on results If negative, start bowel regimen. Consider GI or general surgery consultation if needed. I keep n.p.o. for now, can consider advancement once CT resulted. (2) Recurrent UTI (urinary tract infection): Unclear if this is urinary tract, urine appears to be visually normal with positive UA. Patient be given Zosyn as noted above, await blood and urine cultures Suprapubic tube was recently placed, appears to be functioning normally. (3) Constipation: Chronic in a patient with quadriplegia. Note as above. (4) HTN (hypertension): I will hold off on antihypertensives for now as patient is hypotensive. We will plan to restart amlodipine and lisinopril once vitals normalized. For now, will hydrate with normal saline (5) HLD (hyperlipidemia): Patient is on atorvastatin 20 mg daily, can continue (6) Quadriplegia: (7) Diabetes: [id number], patient is on metformin and glipizide. Will hold off while patient is n.p.o., start sliding scale with every 6 hours Accu-Cheks for now. Eventual advancement to a diabetic diet once cleared for p.o.'s. History of Present Illness Primary Care Provider: Pasquale Harrington DO This is a 50-year-old male with past mental history of quadriplegia, urinary retention with chronic suprapubic catheter, hypertension, hyperlipidemia, and previous history of a UTI that presents today complaining of some abdominal bloating. Patient is a good historian. Patient tells me he is typically cared for in his home with a care worker. However, the care worker had a Covid exposure and the patient was moved to [facility] about 8 days ago while this worker was under quarantine. He tells me he typically moves his bowels much better at home. Starting 6 days prior to presentation, he noticed worsening abdominal bloating. He denied any nausea or vomiting. He did have a suppository at the [facility] and told me he had significant amount of gas but no BM. Patient was also found to be somewhat hypotensive and was transferred to the emergency room for further evaluation. At the time my evaluation, patient is awake and alert. He seems to be in no distress outside of his abdominal bloating. Of some concern, patient had a mildly elevated will white count at 14 along with an elevated lactic acid. His blood pressure was noted to be 90/61 but this is improved with fluid ministration. Of note, patient tells me that his blood pressure medication was changed after his arrival to the [facility], he thinks a medication was added but was unclear what this medication was. I do note that he is on amlodipine and lisinopril and that both these medications appear on a discharge summary from 04/17. He does also tell me that his suprapubic catheter was changed at the facility yesterday, he did have a small amount of hematuria after this procedure. On review of records, patient had a urine culture on 10/26 that was read as only yeast. Allergies Allergy/AdvReac Type Severity Reaction Status Date / Time Sulfa (Sulfonamide Allergy Swelling Verified 11/05/20 08:44 Antibiotics) of Lip/Tongue/Throat lactose AdvReac Unknown Verified 11/05/20 08:44 Home Medications Medication Instructions Recorded Confirmed Type amlodipine 10 mg PO DAILY 05/11/18 11/05/20 History atorvastatin 20 mg PO DAILY 05/11/18 11/05/20 History baclofen 20 mg PO TID 05/11/18 11/05/20 History folic acid 1 mg PO DAILY 05/11/18 11/05/20 History metformin 1,000 mg PO AMPM 05/11/18 11/05/20 History methotrexate sodium 15 mg PO WK 05/11/18 11/05/20 History oxybutynin chloride 5 mg PO TID 05/11/18 11/05/20 History prednisone 10 mg PO DAILY 05/11/18 11/05/20 History ascorbic acid (vitamin C) [Vitamin 500 mg PO DAILY 09/11/18 11/05/20 History C] bisacodyl 10 mg [place] Q OTHER DAY PRN 09/11/18 11/05/20 History diclofenac sodium [Voltaren] See Rx Instructions .ROUTE 09/11/18 11/05/20 Rx .COMPLEX #100 gm potassium chloride 20 meq PO DAILY 09/11/18 11/05/20 History lisinopril 40 mg PO DAILY 11/02/18 11/05/20 History famotidine 40 mg PO DAILY 03/30/20 11/05/20 History glipizide 10 mg PO QAM 10/26/20 11/05/20 History ciprofloxacin HCl 500 mg PO BID 11/05/20 11/05/20 History glipizide 5 mg PO QAM 11/05/20 11/05/20 History losartan 50 mg PO DAILY 11/05/20 11/05/20 History methenamine hippurate 1 g PO BID 11/05/20 11/05/20 History nitrofurantoin monohyd/m-cryst 100 mg PO BID 11/05/20 11/05/20 History ondansetron [Zofran ODT] 4 mg PO Q6H PRN 11/05/20 11/05/20 History Past Med/Surg History Medical History Bladder stone Diabetes HLD (hyperlipidemia) HTN (hypertension) Hypertension Nephrolithiasis Neurogenic bladder Osteomyelitis Pemphigoid Pemphigus foliaceus Sacral wound Suprapubic catheter Surgical History History of hip surgery History of suprapubic catheter Previous back surgery Family History Mother Cancer Father Diabetes Grandfather Diabetes Social History Smoking Status: Never smoker Second Hand Exposure: No; Do You Dip or Chew Tobacco: No; Tobacco Cessation Education Requested by Patient: No Hx Alcohol Use: No Hx Substance Use: No Preferred Language: Uzbek Communication Ability: Effective 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 Beliefs That Will Affect Care: None marital status: Single Current Living Situation Comment: Typically lives alone with daily care provider, nain Barker Feels Safe at Home: Yes Safety Concerns: Feels Safe At This Time during the past year weight has: decreased > 10 lbs Assistive Devices Comment: Sharee lift, hospital bed Review of Systems Review of Systems: All systems reviewed & are unremarkable except as noted in HPI & below Constitutional: no fever, no chills, no body aches, no weakness and no anorexia Eyes: as per Subjective / HPI Respiratory: no cough, no chest congestion, no change in sputum, no dyspnea and no dyspnea on exertion Cardiovascular: no chest pain, no chest pain at rest, no radiating jaw, neck or arm pain, no dyspnea, no dyspnea on exertion and no orthopnea Gastrointestinal: + bloating, + excessive flatulence, + change in bowel habits and + constipation; no abdominal pain, no nausea and no vomiting Genitourinary: + as per Subjective / HPI Musculoskeletal: no back pain, no neck pain and no joint pain Integumentary: as per Subjective / HPI Neurologic: as per Subjective / HPI Psychiatric: as per Subjective / HPI Endocrine: as per Subjective / HPI Physical Exam Constitutional: WD/WN, vitals as above well nourished, + obese and + physical limitations; no acute distress Neck: large multani Respiratory: normal respiratory effort, lungs clear to auscultation Auscultation: lungs clear to auscultation bilaterally Cardiovascular: RRR, no murmur, no edema Heart Sounds: normal S1 and normal S2 Gastrointestinal (Abdomen): Inspection/Auscultation: + abdomen distended and + hyperactive bowel sounds Percussion/Palpation: abdomen soft and + tympanic to percussion Musculoskeletal: Trace1+ nondependent edema bilateral lower extremities Psychiatric: A+Ox3, euthymic affect Genitourinary: Suprapubic tube, approximately 1 L of clear yellow urine in bag. Minimal sediment in tubing. No evidence of blood. Results & Data Results & Data ([facility]) Vital Signs (Past 12 Hours) Vital Signs Temp Pulse Resp BP Pulse Ox 11/05/20 09:30 72 20 94 11/05/20 09:02 104 H 18 11/05/20 08:00 82 21 96 11/05/20 07:30 76 22 97 11/05/20 07:02 89 19 90/61 L 95 11/05/20 07:00 89 18 11/05/20 06:57 86 25 H 98 11/05/20 06:54 90 24 121/97 98 11/05/20 06:53 37.2 C 88 20 121/97 100 PG Care Time/CCT Total # of Minutes Spent Total Time Spent with Patient: Total time spent is greater than 50% in coordination of care (as documented) at patient's floor/unit and/or counseling patient: Coding Level of Care Code 53357 Initial Inpt Care Lvl 3 Diagnoses Abdominal distention R14.0 Recurrent UTI (urinary tract infection) N39.0 Constipation K59.00 HTN (hypertension) I10 HLD (hyperlipidemia) E78.5 Quadriplegia G82.50 Diabetes E11.9
[2020-11-05 11:43] LABS: Influenza A virus by PCR Negative (Neg); Influenza B virus by PCR Negative (Neg); RSV by PCR Negative (Neg); SARS CoV2 RNA(COVID-19) InHosp NEGATIVE (Negative)
[2020-11-05] MEDS ORDERED: GLUCAGON FOR INJ 1 MG VIAL SQ PRN (12:50)
[2020-11-05] MEDS ORDERED: CARBOHYDRATES FOR HYPOGLYCEMIA PO PRN (12:50)
[2020-11-05] MEDS ORDERED: GLUCOSE 40% GEL 15 GM TUBE PO PRN (12:50)
[2020-11-05] MEDS ORDERED: bisacodyL 10 MG SUPP PR PRN (12:50)
[2020-11-05] MEDS ORDERED: DEXTROSE 50% 50 ML SYRINGE IV PRN (12:50)
[2020-11-05] MEDS ORDERED: GLUCOSE 10 TABS/TUBE PO PRN (12:50)
[2020-11-05] MEDS ORDERED: PHARMACY GLYCEMIC MGMT CONSULT PRN (13:21)
[2020-11-05] MEDS ORDERED: OPTIRAY 300 100mL IV ONE (14:12)
[2020-11-05] MEDS: BACLOFEN 20 MG TAB PO SCH ×2 (14:49→22:49)
[2020-11-05] MEDS: OXYBUTYNIN CHLORIDE 5 MG TAB PO SCH ×2 (14:49→22:49)
--- NOTE | 2020-11-05 14:49 | CT Scan Report ---
CT OF THE ABDOMEN AND PELVIS WITH CONTRAST CLINICAL HISTORY: Abdominal pain. COMPARISON STUDY: CT of the abdomen and pelvis March 30, 2020. KUB November 05, 2020. TECHNIQUE: Following IV administration of 90 mL of Optiray, axial images of the abdomen and pelvis we re obtained from the lung bases to the proximal femurs. Images were reviewed in the axial, sagittal, and coronal planes. IV contrast was administered without complication. Automated exposure control wa s utilized for the study. A dose lowering technique was utilized adhering to the principles of ALARA . Oral contrast was administered. CT DOSE: 1238.55 mGycm FINDINGS: Lung bases are unremarkable. Exam is mildly compromised by quantum mottle artifact. Hepatic steatosis is noted. There are no hepatic lesions. No biliary or pancreatic ductal dilatation. The sp herber, adrenal glands and pancreas are unremarkable. Several right renal calculi measure up to 6 mm. T here are no ureteral calculi. There is no hydronephrosis. Suprapubic catheter within the bladder is n oted. The bladder is collapsed. There is no evidence for a bowel obstruction. The appendix is normal. No ascites is present. There is no lymphadenopathy. No abscess is present. There is a possible sacra l decubitus ulcer. There is no CT evidence for acute osteomyelitis. Major vasculature is patent. Musc ular atrophy within the pelvis and hips is chronic. No acute fracture or suspicious lesions are ident ified within visual skeletal structures. 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 This is unchanged. IMPRESSION: 1. No acute process within the abdomen or pelvis. 2. Right-sided nephrolithiasis. No ureteral calculi or hydronephrosis. 3. Possible sacral decubitus ulcer. No evidence for acute osteomyelitis. ACT 112: Negative or not required by law. Electronically signed by: Mingo Ko M.D. 11/05/2020 2:48 PM
[2020-11-05] MEDS: HEPARIN SOD 5,000 UNIT/0.5 ML VIAL SQ SCH ×2 (14:50→22:50)
[2020-11-05] MEDS: INSULIN ASPART 100 UNITS/ML 3 ML PEN SC SCH ×3 (16:40→22:54)
[2020-11-05] MEDS: PIPERACILLIN/TAZOBACTAM 4.5 GM in DEXTROSE 5% 100 ML IV SCH (17:58)
[2020-11-05] MEDS: METHENAMINE HIPPURATE 1 GM TAB PO SCH (22:50)
[2020-11-06] MEDS: SODIUM CHLORIDE 0.9% 500 ML IV SCH ×2 (00:11→04:28)
[2020-11-06] MEDS: PIPERACILLIN/TAZOBACTAM 4.5 GM in DEXTROSE 5% 100 ML IV SCH ×3 (02:07→17:25)
[2020-11-06] MEDS: SODIUM CHLORIDE 0.9% 1000ML 1,000 ML IV SCH ×2 (04:27→13:35)
--- NOTE | 2020-11-06 06:04 | Electrocardiogram Report ---
Test Reason : Blood Pressure : / mmHG Vent. Rate : 072 BPM Atrial Rate : 072 BPM P-R Int : 138 ms QRS Dur : 092 ms QT Int : 378 ms P-R-T Axes : 000 013 040 degrees QTc Int : 413 ms Poor data quality, interpretation may be adversely affected Normal sinus rhythm Normal ECG When compared with ECG of 26-OCT-2020 22:05, Non-specific change in ST segment in Lateral leads T wave inversion no longer evident in Lateral leads Confirmed by Maikel Gonzalez ([id number]) on 11/06/2020 6:04:25 AM Referred By: REFERRED SELF Confirmed By:Maikel Gonzalez
[2020-11-06] MEDS: HEPARIN SOD 5,000 UNIT/0.5 ML VIAL SQ SCH ×3 (06:13→21:17)
[2020-11-06 06:36] LABS: Basophils # (auto) 0.03 K/uL (0-0.2); Basophils % (auto) 0.4 %; Eosinophils # (auto) 0.25 K/uL (0-0.5); Eosinophils % (auto) 3.5 %; Hematocrit (blood only) 35.7 % (42-52); Hemoglobin 11.4 g/dL (14.0-18.0); Immature Granulocytes # (auto) 0.01 K/uL (0.00-0.02); Immature Granulocytes % (auto) 0.1 %; Lymphocytes # (auto) 1.43 K/uL (1.2-3.4); Lymphocytes % (auto) 19.8 %; Mean Corpuscular Hemoglobin 28.7 pg (25-34); Mean Corpuscular Hgb Conc 31.9 g/dL (32-36); Mean Corpuscular Volume 89.9 fL (80-100); Mean Platelet Volume 10.8 fL (7.4-10.4); Monocytes # (auto) 0.82 K/uL (0.11-0.59); Monocytes % (auto) 11.4 %; Neutrophils # (auto) 4.67 K/uL (1.4-6.5); Neutrophils % (auto) 64.8 %; Platelet Count 292 K/uL (130-400); RDW Coefficient of Variation 16.1 % (11.5-14.5); RDW Standard Deviation 53.1 fL (36.4-46.3); Red Blood Count 3.97 M/uL (4.7-6.1); White Blood Count 7.21 K/uL (4.8-10.8)
[2020-11-06 07:17] LABS: BUN Creatinine Ratio 21.9 (10-20); Blood Urea Nitrogen 10 mg/dl (7-18); Calcium 8.6 mg/dl (8.5-10.1); Carbon Dioxide 27 mmol/L (21-32); Chloride 104 mmol/L (98-107); Est GFR (African American) > 150.0; Est GFR (Non-African American) 131.9; Glucose 93 mg/dl (70-99); Magnesium 1.9 mg/dl (1.8-2.4); Potassium 4.1 mmol/L (3.5-5.1); Sodium 138 mmol/L (136-145)
[2020-11-06] MEDS: ATORVASTATIN 20 MG TAB PO SCH (08:56)
[2020-11-06] MEDS: ASCORBIC ACID 500 MG TAB PO SCH (08:56)
[2020-11-06] MEDS: FOLIC ACID 1 MG TAB PO SCH (08:56)
[2020-11-06] MEDS: FAMOTIDINE 40 MG TABLET PO SCH (08:56)
[2020-11-06] MEDS: BACLOFEN 20 MG TAB PO SCH ×3 (08:56→21:16)
[2020-11-06] MEDS: predniSONE 10 MG TABLET PO SCH (08:57)
[2020-11-06] MEDS: OXYBUTYNIN CHLORIDE 5 MG TAB PO SCH ×3 (08:57→21:16)
[2020-11-06] MEDS: METHENAMINE HIPPURATE 1 GM TAB PO SCH ×2 (08:57→21:16)
[2020-11-06] MEDS: INSULIN ASPART 100 UNITS/ML 3 ML PEN SC SCH ×4 (08:59→21:22)
--- NOTE | 2020-11-06 10:05 | Pharmacy Report ---
Pharmacy Glycemic Short Note 2 - Date of Service November 06, 2020 - Glycemic Short BSG Results (Last 24 hours): 11/05/20 11/05/20 11/05/20 16:30 20:16 22:52 Glucose POC Glucose 97 151 H 151 H 11/06/20 11/06/20 05:59 07:20 Glucose 93 POC Glucose 101 H OUTPATIENT ANTIDIABETIC REGIMEN: * glipizide, metformin * A1c 7.0% ASSESSMENT: * 50 year old admitted with abdominal distention, hx of recurrent UTIs - started on zosyn empirically, pt with quadriplegia. * Type 2 diabetic managed only on oral agents at home, NPO on admission * Started diet this AM - continue novolog for now PLAN FOR INPATIENT GLYCEMIC CONTROL: * Hold outpatient oral diabetes medications * Basal insulin * Lantus - hold * Bolus insulin * NovoLog per scale ACHS or Q6hrs while NPO * Goal Range: Low 110 mg/dL - High 140 mg/dL * Correction Factor: 30 mg/dL/unit * Nutritional / Prandial insulin per carb ratio of 1 unit per 10 grams CHO consumed PLAN FOR DISCHARGE: * A1c 7.0% - reasonable to continue home regimen on discharge as long as no contraindications present
[2020-11-06] MEDS: POLYETHYLENE (MIRALAX) 17 GM PACK PO SCH (21:28)
--- NOTE | 2020-11-06 22:54 | Hospitalist Progress Note ---
Date of Service November 06, 2020 Assessment & Plan (1) Abdominal distention: Concern with abdominal distention, I do see patient has had previous bowel issues. Suspect this may be constipation KUB shows no signs of obstruction. Patient did have hypotension, elevated lactic acid, leukocytosis. Intra abdominal pathology cannot be clearly excluded. All tests resolved. Patient has been given on Zosyn empirically, will continue this in the short- term Check CT of the abdomen pelvis: no obstruction resarted dier, added miralax Consider GI or general surgery consultation if needed. (2) Recurrent UTI (urinary tract infection): Unclear if this is urinary tract, urine appears to be visually normal with positive UA. Patient be given Zosyn as noted above, await blood and urine cultures Suprapubic tube was recently placed, appears to be functioning normally. (3) Constipation: Chronic in a patient with quadriplegia. Note as above. (4) HTN (hypertension): I will hold off on antihypertensives for now as patient is hypotensive. We will plan to restart amlodipine and lisinopril once vitals normalized. Received IVF, will stop fluids today. (5) HLD (hyperlipidemia): Patient is on atorvastatin 20 mg daily, can continue (6) Quadriplegia: (7) Diabetes: [id number], patient is on metformin and glipizide. Will hold off while patient is n.p.o., start sliding scale with every 6 hours Accu-Cheks for now. Eventual advancement to a diabetic diet consulted glycemic control Admission and Anticipated Discharge Date Admission Date: November 05, 2020 Subjective Patient reports no new complaints. He denies a BM or flatulence.'He states his legs are still swollen. Review of Systems Review of Systems: All systems reviewed & are unremarkable except as noted in HPI & below Physical Exam Physical Exam: WD/WN, vitals as above well nourished, + obese and + physical limitations; no acute distress Neck: large multani Respiratory: normal respiratory effort, lungs clear to auscultation Auscu ltation: lungs clear to auscultation bilaterally Cardiovascular: RRR, no murmur, no edema Heart Sounds: normal S1 and normal S2 Gastrointestinal (Abdomen): Inspection/Auscultation: + abdomen distended and + hyperactive bowel sounds Percussion/Palpation: abdomen soft Musculoskeletal: Trace1+ nondependent edema bilateral lower extremities Psychiatric: A+Ox3, euthymic affect Genitourinary: Suprapubic tube, approximately 1 L of clear yellow urine in bag. Minimal sediment in tubing. No evidence of blood. Results & Data Results & Data ([facility]) Vital Signs (Past 12 Hours) Vital Signs Temp Pulse Pulse Resp BP Pulse Ox 11/06/20 20:16 37.0 C 72 20 111/59 L 95 11/06/20 16:00 71 11/06/20 15:03 36.9 C 61 18 124/56 L 95 11/06/20 11:45 36.6 C 53 L 18 135/82 96 PG Care Time/CCT Total # of Minutes Spent Total Time Spent with Patient: Total time spent is greater than 50% in coordination of care (as documented) at patient's floor/unit and/or counseling patient: Coding Level of Care Code 15630 Subseq Obs Care Lvl 2 Diagnoses Abdominal distention R14.0 Recurrent UTI (urinary tract infection) N39.0 Constipation K59.00 HTN (hypertension) I10 HLD (hyperlipidemia) E78.5 Quadriplegia G82.50 Diabetes E11.9
[2020-11-07] MEDS: PIPERACILLIN/TAZOBACTAM 4.5 GM in DEXTROSE 5% 100 ML IV SCH ×2 (01:43→08:51)
[2020-11-07] MEDS: HEPARIN SOD 5,000 UNIT/0.5 ML VIAL SQ SCH ×3 (05:53→21:08)
[2020-11-07] MEDS ORDERED: bisacodyL 10 MG SUPP PR PRN (06:31)
[2020-11-07] MEDS ORDERED: GLYCERIN ADULT 12 SUPP/BOX SUPP PR ONE (07:56)
[2020-11-07] MEDS: INSULIN ASPART 100 UNITS/ML 3 ML PEN SC SCH ×4 (08:50→20:11)
[2020-11-07] MEDS: POLYETHYLENE (MIRALAX) 17 GM PACK PO SCH (08:51)
[2020-11-07] MEDS: FAMOTIDINE 40 MG TABLET PO SCH (08:52)
[2020-11-07] MEDS: ASCORBIC ACID 500 MG TAB PO SCH (08:52)
[2020-11-07] MEDS: METHENAMINE HIPPURATE 1 GM TAB PO SCH (08:52)
[2020-11-07] MEDS: FOLIC ACID 1 MG TAB PO SCH (08:52)
[2020-11-07] MEDS: predniSONE 10 MG TABLET PO SCH (08:52)
[2020-11-07] MEDS: BACLOFEN 20 MG TAB PO SCH ×3 (08:52→21:07)
[2020-11-07] MEDS: ATORVASTATIN 20 MG TAB PO SCH (08:53)
[2020-11-07] MEDS: OXYBUTYNIN CHLORIDE 5 MG TAB PO SCH ×3 (08:53→21:07)
[2020-11-07] MEDS ORDERED: hydrALAZINE HCL 20 MG/ML VIAL IV ONE (11:42)
--- NOTE | 2020-11-07 12:33 | Gastrointestinal Consultation ---
Date of Consultation November 07, 2020 Assessment & Plan (1) Abdominal distention: 50 year old male with intermittent gas/bloat/distention, onset yesterday around 6pm with persistent symptoms this AM. Did have his bowel regimen which allowed small gas/stool Stat KUB Continue OP bowel medication Pending review of KUB consider tap water enema Avoid narcotic analgesias Supervising Physician Co-Signing Physician Notes Attending attestation I have seen, examined this patient, and agree with the findings and above by our mid-level provider AXEL Bernard, with the following additions: Patient provides a history of this reoccurring every few days, he takes suppositories followed by relief. His abdomen has predictably distended per him since yesterday. In review of his imaging he actually has chronic ileus as on this admission did have some concern of whether he had a midline volvulus in March 2020, however this was treated without endoscopic treatment and only NG tube placement and bowel regimen. He states today that he is not that severe, 7 some distention but no other acute distress, no kristen abdominal pain. Did have a bowel movement and passed some gas earlier today. States that positioning him and rolling him from left to right side usually alleviates this. He does have normal active sounds and is soft, will follow up with KUB and likely rectal enemas assuming that he does not have concern for mechanical obstruction. If suggestions that on x-ray will need follow-up CT scan, however, given his body habitus, his medical conditions, and current recurrent problems then and ostomy may be his long-term better strategy moving forward. History of Present Illness Reason for Consultation: distention Requesting Physician: Valentin Attending Physician: Charisma Hanson MD History of Present Illness 50 yr old male w/ history of quadriplegic, T2DM, hyperlipidemia and a decubitus ulcer GI asked to evaluate for abd distention. Pt was seen and evaluated chart reviewed. Notes cyclical issues with terrible gas/bloat/distention. This tends to be the day before he moves his bowels. 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 Yesterday around 6 pm he noted some abd distentions, this worsened overnight. Presently with discomfort, cramping. He did pass small BM and stool this AM which has helped some. CT a few days ago without any acute findings KUB pending Allergies Allergy/AdvReac Type Severity Reaction Status Date / Time Sulfa (Sulfonamide Allergy Swelling Verified 11/05/20 08:44 Antibiotics) of Lip/Tongue/Throat lactose AdvReac Unknown Verified 11/05/20 08:44 Home Medications Medication Instructions Recorded Confirmed Type amlodipine 10 mg PO DAILY 05/11/18 11/05/20 History atorvastatin 20 mg PO DAILY 05/11/18 11/05/20 History baclofen 20 mg PO TID 05/11/18 11/05/20 History folic acid 1 mg PO DAILY 05/11/18 11/05/20 History metformin 1,000 mg PO AMPM 05/11/18 11/05/20 History methotrexate sodium 15 mg PO WK 05/11/18 11/05/20 History oxybutynin chloride 5 mg PO TID 05/11/18 11/05/20 History prednisone 10 mg PO DAILY 05/11/18 11/05/20 History ascorbic acid (vitamin C) [Vitamin 500 mg PO DAILY 09/11/18 11/05/20 History C] bisacodyl 10 mg HI Q OTHER DAY PRN 09/11/18 11/05/20 History diclofenac sodium [Voltaren] See Rx Instructions .ROUTE 09/11/18 11/05/20 Rx .COMPLEX #100 gm potassium chloride 20 meq PO DAILY 09/11/18 11/05/20 History lisinopril 40 mg PO DAILY 11/02/18 11/05/20 History famotidine 40 mg PO DAILY 03/30/20 11/05/20 History glipizide 10 mg PO QAM 10/26/20 11/05/20 History ciprofloxacin HCl 500 mg PO BID 11/05/20 11/05/20 History glipizide 5 mg PO QAM 11/05/20 11/05/20 History losartan 50 mg PO DAILY 11/05/20 11/05/20 History methenamine hippurate 1 g PO BID 11/05/20 11/05/20 History nitrofurantoin monohyd/m-cryst 100 mg PO BID 11/05/20 11/05/20 History ondansetron [Zofran ODT] 4 mg PO Q6H PRN 05/10/21 05/10/21 History Patient History Medical History Bladder stone Diabetes HLD (hyperlipidemia) HTN (hypertension) Hypertension Nephrolithiasis Neurogenic bladder Osteomyelitis Pemphigoid Pemphigus foliaceus Sacral wound Suprapubic catheter Surgical History History of hip surgery History of suprapubic catheter Previous back surgery Family History Mother Cancer Father Diabetes Grandfather Diabetes Social History Smoking Status: Never smoker Second Hand Exposure: No; Do You Dip or Chew Tobacco: No; Tobacco Cessation Education Requested by Patient: No Hx Alcohol Use: No Hx Substance Use: No Preferred Language: Lithuanian Communication Ability: Effective 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 Beliefs That Will Affect Care: None marital status: Single Current Living Situation Comment: Typically lives alone with daily care provider, nain Barker Feels Safe at Home: Yes Safety Concerns: Feels Safe At This Time during the past year weight has: decreased > 10 lbs Assistive Devices Comment: Sharee lift, hospital bed Review of Systems Review of Systems: All systems reviewed & are unremarkable except as noted in HPI & below Physical Exam Constitutional: well developed and well nourished; no acute distress Neck: trachea midline, no thyromegaly Respiratory: normal respiratory effort, lungs clear to auscultation Cardiovascular: RRR, no murmur, no edema Gastrointestinal (Abdomen): Inspection/Auscultation: normal bowel sounds Percussion/Palpation: + abdomen tender and abdomen soft (but distended); no guarding, abdomen not rigid, no abdominal mass and no ascites Skin: no rashes, warm and dry Results & Data ([facility]) Vital Signs (Past 12 Hours) Vital Signs Temp Pulse Pulse Resp BP BP Pulse Ox 11/07/20 12:16 152/68 H 11/07/20 11:30 36.9 C 99 H 22 225/97 H 203/110 H 98 11/07/20 08:19 36.8 C 98 H 21 133/73 98 11/07/20 04:00 36.4 C L 51 L 20 150/84 H 99 11/07/20 02:35 64 Laboratory Results 11/07/20 11/07/20 11/06/20 Range/Units 11:23 07:15 20:10 POC Glucose 176 H 138 H 186 H (70-99) mg/dl 11/06/20 Range/Units 16:16 POC Glucose 173 H (70-99) mg/dl
--- NOTE | 2020-11-07 13:10 | XRay Report ---
KUB CLINICAL HISTORY: Generalized abdominal pain. FINDINGS: 2 AP, portable, supine abdominal radiographs are compared to abdominal radiographs and CT d ated 11/05/2020. There is a nonobstructed abdominal bowel gas pattern. No evidence of intraperitoneal free air is seen on these supine views. There are no abnormal abdominal calcifications. The skeletal structures are osteopenic and appear intact. Degenerative change is noted in the hips and spine. IMPRESSION: Nonobstructed abdominal bowel gas pattern. Electronically signed by: Bartolome Mckay M.D. 11/07/2020 1:09 PM
[2020-11-07] MEDS ORDERED: amLODIPine BESYLATE 5 MG TAB PO SCH (15:15)
[2020-11-07] MEDS ORDERED: hydrALAZINE HCL 20 MG/ML VIAL IV PRN (20:28)
--- NOTE | 2020-11-07 23:05 | Hospitalist Progress Note ---
Date of Service November 07, 2020 Assessment & Plan (1) Hypotension: Patient presented with hypotension, elevated lactate. He may be somewhat adrenally insufficient due to chronic prednisone use and recently had a prednisone burst and then was back down to 10 mg as per discharge summary from 10/27 Also noted is that he was placed on both lisinopril and losartan on his medication list from the retirement-unclear why this was done Holding lisinopril, losartan, amlodipine since admission Now hypertensive in the setting of significant abdominal distention and constipation Restart amlodipine at 5 mg daily No source of infection-do not believe he has UTI-he has chronic colonization with yeast, blood cultures remain no growth. CT abdomen/pelvis without intra- abdominal infectious source, chest x-ray negative, remains afebrile Antibiotics to be discontinued today (2) Abdominal distention: Concern with abdominal distention, I do see patient has had previous bowel issues including possible midline volvulus on admission in 03/2020 requiring NG tube. With continuing abdominal distention and minimal stool output the last 2 days- KUB obtained on 11/07 shows significant stool load No obstruction seen on imaging both today and on CT abdomen/pelvis upon admission Continue MiraLAX, glycerin suppositories, bisacodyl suppositories, tapwater enema ordered x1 today by GI Appreciate GI consultation (3) Constipation: Chronic in a patient with quadriplegia. Note as above. (4) Leg edema: Complained of this upon admission Lower extremity venous Dopplers negative for DVT Could be secondary to venous stasis from increased intra-abdominal pressure from severe constipation Relieve the constipation No need for diuretics (5) HTN (hypertension): Now hypertensive secondary to pain, hypotension on admission is now resolved Restart amlodipine 5 mg daily which is half of his normal dose He was recently added on lisinopril and losartan at the retirement-would not restart both of these-would just pick 1 when ready Follow blood pressures IV hydralazine 5 mg x 1 given on 11/07 for systolic blood pressure 225 (6) Recurrent UTI (urinary tract infection): Suprapubic catheter is functioning normally, no post void residual UA appears contaminated and not a true infection Urine culture with yeast growing which is likely colonizer-no need to treat Discontinue antibiotics started on admission (7) Leukocytosis: Elevated at 14 K on admission, likely secondary to recent prednisone burst upon discharge last time versus stress response due to hypotension and constipation Now resolved Follow CBC (8) HLD (hyperlipidemia): Patient is on atorvastatin 20 mg daily, can continue (9) Quadriplegia: Supportive care, frequent turning With sacral decubitus ulcer (10) Diabetes: [id number], patient is on metformin and glipizide. Hemoglobin A1c 7.0% last admission Diabetic diet Continue sliding scale insulin (11) Sacral wound: Wound care Offload pressure Does not appear to be infected as per pictures (12) Suprapubic catheter: As above, changed out upon admission and functioning normally (13) Anemia: Hemoglobin mildly low at 11.4, MCV normal 89.9 Likely anemia of chronic disease, anemia also may be due to to methotrexate use No bleeding from anywhere noted (14) Hyponatremia: Sodium 130 upon admission and improved to normal with IV fluid administration Likely some mild dehydration Follow BMP (15) Pemphigoid: Continue chronic prednisone 10 mg daily and no need for stress dose s teroids at this time as blood pressures have improved with IV fluids and holding antihypertensives as above Continue methotrexate Continue folic acid (16) DVT prophylaxis: Heparin SQ Disposition-continued stay for significant constipation abdominal distention, eventually back to [facility] when improved Admission and Anticipated Discharge Date Admission Date: November 07, 2020 Subjective I was called to the patient's bedside by the nurse for significantly elevated blood pressure and patient was shaking and reporting intense spasms through his abdomen. He was given a glycerin suppository earlier this morning and had only a small amount of stool and a lot of gas past but feels extremely distended in the abdomen. Denies chest pains or shortness of breath. He reports that typically at home, glycerin suppositories work every other day when he gets on the bedpan. I discussed the case with gastroenterology. Telemetry with normal sinus rhythm, PACs, PVCs, burst of PAT, rates in the 60s to 70s Review of Systems Review of Systems: All systems reviewed & are unremarkable except as noted in HPI & below Physical Exam Constitutional: WD/WN, vitals as above + morbidly obese Eyes: + anicteric sclerae ENMT: external ear and nose normal, oropharynx normal Neck: trachea midline, no thyromegaly Respiratory: normal respiratory effort, lungs clear to auscultation Cardiovascular: Rate/Rhythm: regular rate and regular rhythm Heart Sounds: no murmur Extremities: + edema (1-2+ pitting edema of the legs bilaterally) Chest (Breasts): Chest: normal inspection of chest Gastrointestinal (Abdomen): Inspection/Auscultation: + abdomen distended (Moderate to severely distended) and normal bowel sounds Percussion/Palpation: abdomen nontender and no guarding Musculoskeletal: Extremities: no cyanosis and no clubbing Skin: + dry skin (Dry and peeling on legs) Neurologic: + focal motor deficit (Paraplegic in bilateral lower extremities) and awake Psychiatric: A+Ox3, euthymic affect Genitourinary: no testicular masses, no penis abnormality (With suprapubic catheter in place, bladder scan 16 mL) Results & Data Results & Data ([facility]) Vital Signs (Past 12 Hours) Vital Signs Temp Pulse Resp BP BP Pulse Ox 11/07/20 21:06 111/50 L 11/07/20 19:44 37.0 C 63 20 161/110 H 96 11/07/20 16:26 36.5 C 60 19 151/68 H 97 11/07/20 12:16 152/68 H 11/07/20 11:30 36.9 C 99 H 22 225/97 H 203/110 H 98 Laboratory Results 11/07/20 11/07/20 11/07/20 Range/Units 20:07 16:24 11:23 POC Glucose 115 H 156 H 176 H (70-99) mg/dl 11/07/20 Range/Units 07:15 POC Glucose 138 H (70-99) mg/dl Diagnostic Findings KUB x-ray personally reviewed by me and agree with the following report: KUB X-Ray 11/07/20 11:38 KUB CLINICAL HISTORY: Generalized abdominal pain. FINDINGS: 2 AP, portable, supine abdominal radiographs are compared to abdominal radiographs and CT dated 11/05/2020. There is a nonobstructed abdominal bowel gas pattern. No evidence of intraperitoneal free air is seen on these supine views. There are no abnormal abdominal calcifications. The skeletal structures are osteopenic and appear intact. Degenerative change is noted in the hips and spine. IMPRESSION: Nonobstructed abdominal bowel gas pattern. Electronically signed by: Bartolome Mckay M.D. 11/07/2020 1:09 PM PG Care Time/CCT Total # of Minutes Spent Total Time Spent with Patient: Total time spent is greater than 50% in coordination of care (as documented) at patient's floor/unit and/or counseling patient: Coding Level of Care Code 70763 Subseq Hosp Care Lvl 3 Diagnoses Hypotension I95.9 Abdominal distention R14.0 Constipation K59.00 Leg edema R60.0 HTN (hypertension) I10 Recurrent UTI (urinary tract infection) N39.0 Leukocytosis D72.828 Leukocytosis type: other HLD (hyperlipidemia) E78.5 Quadriplegia G82.50 Diabetes E11.9 Sacral wound S31.000A Suprapubic catheter Z93.59 Anemia D64.9 Hyponatremia E87.1 Pemphigoid L12.9 DVT prophylaxis Z29.9 (1) Leukocytosis Leukocytosis type: other Qualified Code(s): D72.828 - Other elevated white blood cell count
[2020-11-07] MEDS ORDERED: GLYCERIN ADULT 12 SUPP/BOX SUPP PR PRN (23:15)
[2020-11-08] MEDS: HEPARIN SOD 5,000 UNIT/0.5 ML VIAL SQ SCH ×3 (06:24→21:26)
[2020-11-08 07:24] LABS: Basophils # (auto) 0.02 K/uL (0-0.2); Basophils % (auto) 0.2 %; Eosinophils % (auto) 7.3 %; Hematocrit (blood only) 37.9 % (42-52); Hemoglobin 12.5 g/dL (14.0-18.0); Immature Granulocytes # (auto) 0.02 K/uL (0.00-0.02); Immature Granulocytes % (auto) 0.2 %; Lymphocytes # (auto) 1.11 K/uL (1.2-3.4); Lymphocytes % (auto) 13.6 %; Mean Corpuscular Hemoglobin 29.1 pg (25-34); Mean Corpuscular Volume 88.3 fL (80-100); Mean Platelet Volume 10.7 fL (7.4-10.4); Monocytes # (auto) 0.77 K/uL (0.11-0.59); Monocytes % (auto) 9.4 %; Neutrophils # (auto) 5.65 K/uL (1.4-6.5); Neutrophils % (auto) 69.3 %; Platelet Count 300 K/uL (130-400); RDW Standard Deviation 51.4 fL (36.4-46.3); Red Blood Count 4.29 M/uL (4.7-6.1); White Blood Count 8.17 K/uL (4.8-10.8)
[2020-11-08 07:52] LABS: Alanine Aminotransferase 25 U/L (12-78); Albumin Level 3.1 gm/dl (3.4-5.0); Aspartate Aminotransferase 15 U/L (15-37); BUN Creatinine Ratio 19.9 (10-20); Blood Urea Nitrogen 6 mg/dl (7-18); Calcium 9.5 mg/dl (8.5-10.1); Carbon Dioxide 25 mmol/L (21-32); Chloride 105 mmol/L (98-107); Creatinine Clr Calc Pharmacy 395.8 ml/min; Est GFR (African American) > 150.0 ml/min; Est GFR (Non-African American) > 150.0 ml/min; Glucose 106 mg/dl (70-99); Magnesium 1.8 mg/dl (1.8-2.4); Potassium 3.5 mmol/L (3.5-5.1); Sodium 138 mmol/L (136-145)
[2020-11-08 07:54] LABS: Albumin Globulin Ratio 0.9 (0.9-2); Alkaline Phosphatase 50 U/L (45-117); Bilirubin,Total 0.6 mg/dl (0.2-1); Globulin 3.4 gm/dl (2.5-4.0); Phosphorus 3.6 mg/dl (2.5-4.9); Total Protein 6.5 gm/dl (6.4-8.2)
[2020-11-08] MEDS: INSULIN ASPART 100 UNITS/ML 3 ML PEN SC SCH ×4 (08:50→21:26)
[2020-11-08] MEDS: amLODIPine BESYLATE 5 MG TAB PO SCH (08:54)
[2020-11-08] MEDS: BACLOFEN 20 MG TAB PO SCH ×3 (08:55→21:25)
[2020-11-08] MEDS: ASCORBIC ACID 500 MG TAB PO SCH (08:55)
[2020-11-08] MEDS: ATORVASTATIN 20 MG TAB PO SCH (08:55)
[2020-11-08] MEDS: OXYBUTYNIN CHLORIDE 5 MG TAB PO SCH ×3 (08:56→21:27)
[2020-11-08] MEDS: FOLIC ACID 1 MG TAB PO SCH (08:56)
[2020-11-08] MEDS: FAMOTIDINE 40 MG TABLET PO SCH (08:56)
[2020-11-08] MEDS: POLYETHYLENE (MIRALAX) 17 GM PACK PO SCH (08:57)
[2020-11-08] MEDS: predniSONE 10 MG TABLET PO SCH (08:57)
--- NOTE | 2020-11-08 12:15 | Hospitalist Progress Note ---
Date of Service November 08, 2020 Assessment & Plan (1) Hypotension: Patient presented with hypotension, elevated lactate. He may be somewhat adrenally insufficient due to chronic prednisone use and recently had a prednisone burst and then was back down to 10 mg as per discharge summary from 10/27 Also noted is that he was recently started on both lisinopril and losartan in the last week--both are on his medication list from the correction-unclear why this was done BPs now normal to high after holding lisinopril, losartan, amlodipine since admission Then became hypertensive in the setting of significant abdominal distention and constipation Restarted amlodipine and improved No source of infection-do not believe he has UTI-he has chronic colonization with yeast, blood cultures remain no growth. CT abdomen/pelvis without intra-abdominal infectious source, chest x-ray negative, remains afebrile Antibiotics discontinued on 11/07 (2) Abdominal distention: Initial complaint on arrival and persisted was significant abdominal distention and constipation likely secondary to recent transition to SNF and his bowel regimen was not consistent like it is at home. -he has had previous bowel issues including possible midline volvulus on admiss ion in 03/2020 requiring NG tube As above, CT abd/pel on admission without obstruction or volvulus KUB obtained on 11/07 shows significant stool load Gave daily MiraLAX, daily glycerin suppositories, daily bisacodyl suppositories 20mg PA, tapwater enema x 1, and gave 1 bottle Magnesium citrate on 11/08 ---> finally had very large BM on 11/08 in the evening Appreciate GI consultation-no decompression needed -ok to advance diet from clears to regular on evening of 11/08 (3) Ileus: Chronic ileus and constipation causing abdominal distension-as above (4) Constipation: Chronic in a patient with quadriplegia-as above (5) Leg edema: Complained of this upon admission Lower extremity venous Dopplers negative for DVT Could be secondary to venous stasis from increased intra-abdominal pressure from severe constipation COuld be from recent increase in prednisone dose/burst Could be from amlodipine use Relieve the constipation No need for diuretics (6) HTN (hypertension): Now hypertensive secondary to pain/abdominal distension, hypotension on admission is now resolved continue amlodipine 10 mg daily He was recently added on lisinopril and losartan at the correction-would not restart both of these-would just pick 1 when ready/if needed Follow blood pressures IV hydralazine 5 mg x 1 given on 11/07 for systolic blood pressure 225 (7) Recurrent UTI (urinary tract infection): RULED OUT Suprapubic catheter is functioning normally, no post void residual UA appears contaminated and not a true infection Urine culture with yeast growing which is likely colonizer-no need to treat Discontinued antibiotics started on admission (8) Leukocytosis: Elevated at 14 K on admission, likely secondary to recent prednisone burst upon discharge last time versus stress response due to hypotension and constipation Now resolved (9) HLD (hyperlipidemia): Patient is on atorvastatin 20 mg daily, can continue (10) Quadriplegia: Supportive care, frequent turning With sacral decubitus ulcer (11) Diabetes: [id number], patient is on metformin and glipizide. Hemoglobin A1c 7.0% last admission Diabetic diet Continue sliding scale insulin (12) Sacral wound: Wound care Offload pressure Does not appear to be infected as per pictures (13) Suprapubic catheter: As above, changed out upon admission and functioning normally (14) Anemia: Hemoglobin mildly low at 11.4-12, MCV normal 89.9 Likely anemia of chronic disease, anemia also may be due to to methotrexate use No bleeding from anywhere noted (15) Hyponatremia: Sodium 130 upon admission and improved to normal with IV fluid administration Likely some mild dehydration Follow BMP (16) Pemphigoid: Continue chronic prednisone 10 mg daily and no need for stress dose steroids at this time as blood pressures have improved with IV fluids and holding antihypertensives as above Continue methotrexate Continue folic acid Needs to get reestablished with a DERM as an outpt no acute flare ups (17) DVT prophylaxis: Heparin SQ Disposition-continued stay for significant constipation, abdominal distention which is finally improving. Plan for return to [facility] when medically stable, possibly on Thursday Admission and Anticipated Discharge Date Admission Date: November 07, 2020 Subjective Pt was seen twice today. Earlier in the AM, he was still c/o abdominal spasms and had still not yet had a BM after receiving glycerin suppository and tap water enema yesterday as well as Miralax. Otherwise he was doing ok, eating clears.No nausea/vomiting. No CP or SOB. I ordered bisacodyl 20mg PA which is what he usually takes at home every other day. Also ordered magnesium citrate. When I saw him later in the afternoon, he was c/o diaphoresis that was coming and going but he wasn't sure why. He cannot feel abdominal pain. He did report he felt like his abdominal distension was improving. Tele with NSR-ST, rates mostly 50-70s with a sustained period of ST in the 140s- 150s while he was turned on his side trying to have a BM. Review of Systems Review of Systems: All systems reviewed & are unremarkable except as noted in HPI & below Physical Exam Constitutional: WD/WN, vitals as above + morbidly obese Eyes: + anicteric sclerae Neck: trachea midline, no thyromegaly Respiratory: normal respiratory effort, lungs clear to auscultation Cardiovascular: Rate/Rhythm: regular rate and regular rhythm Heart Sounds: no murmur Extremities: + edema (1-2+ pitting edema of the legs bilaterally) Chest (Breasts): Chest: normal inspection of chest Gastrointestinal (Abdomen): Inspection/Auscultation: + abdomen distended (Moderately distended, improved from yesterday) and normal bowel sounds Percussion/Palpation: abdomen soft; abdomen nontender and no guarding Musculoskeletal: Extremities: no cyanosis and no clubbing Skin: + dry skin (Dry and peeling on legs) Neurologic: + focal motor deficit (Paraplegic in bilateral lower extremities) and awake Psychiatric: A+Ox3, euthymic affect Results & Data Results & Data ([facility]) Vital Signs (Past 12 Hours) Vital Signs Temp Pulse Resp BP Pulse Ox 11/08/20 11:44 36.8 C 67 18 176/108 H 98 11/08/20 07:50 36.5 C 60 18 133/91 97 11/08/20 03:40 36.2 C L 71 20 162/104 H 98 Laboratory Results 11/08/20 11/08/20 11/08/20 Range/Units 20:56 16:40 11:38 WBC (4.8-10.8) K/uL RBC (4.7-6.1) M/uL Hgb (14.0-18.0) g/dL Hct (42-52) % MCV (80-100) fL MCH (25-34) pg MCHC (32-36) g/dL RDW Std Deviation (36.4-46.3) fL RDW Coeff of Sandor (11.5-14.5) % Plt Count (130-400) K/uL MPV (7.4-10.4) fL Immature Gran % (Auto) % Neut % (Auto) % Lymph % (Auto) % [place] % (Auto) % Eos % (Auto) % Baso % (Auto) % Neut # (Auto) (1.4-6.5) K/uL Lymph # (Auto) (1.2-3.4) K/uL [place] # (Auto) (0.11-0.59) K/uL Eos # (Auto) (0-0.5) K/uL Baso # (Auto) (0-0.2) K/uL Immature Gran # (Auto) (0.00-0.02) K/uL Sodium (136-145) mmol/L Potassium (3.5-5.1) mmol/L Chloride (98-107) mmol/L Carbon Dioxide (21-32) mmol/L Anion Gap (3-11) BUN (7-18) mg/dl Creatinine (0.6-1.4) mg/dl Est Cr Clr Drug Dosing ml/min Est GFR ( Amer) ml/min Est GFR (Non-Af Amer) ml/min BUN/Creatinine Ratio (10-20) Glucose (70-99) mg/dl POC Glucose 103 H 137 H 139 H (70-99) mg/dl Calcium (8.5-10.1) mg/dl Phosphorus (2.5-4.9) mg/dl Magnesium (1.8-2.4) mg/dl Total Bilirubin (0.2-1) mg/dl AST (15-37) U/L ALT (12-78) U/L Alkaline Phosphatase (45-117) U/L Total Protein (6.4-8.2) gm/dl Albumin (3.4-5.0) gm/dl Globulin (2.5-4.0) gm/dl Albumin/Globulin Ratio (0.9-2) 11/08/20 11/08/20 11/08/20 Range/Units 07:20 07:07 07:07 WBC 8.17 (4.8-10.8) K/uL RBC 4.29 L (4.7-6.1) M/uL Hgb 12.5 L (14.0-18.0) g/dL Hct 37.9 L (42-52) % MCV 88.3 (80-100) fL MCH 29.1 (25-34) pg MCHC 33.0 (32-36) g/dL RDW Std Deviation 51.4 H (36.4-46.3) fL RDW Coeff of Sandor 16.0 H (11.5-14.5) % Plt Count 300 (130-400) K/uL MPV 10.7 H (7.4-10.4) fL Immature Gran % (Auto) 0.2 % Neut % (Auto) 69.3 % Lymph % (Auto) 13.6 % [place] % (Auto) 9.4 % Eos % (Auto) 7.3 % Baso % (Auto) 0.2 % Neut # (Auto) 5.65 (1.4-6.5) K/uL Lymph # (Auto) 1.11 L (1.2-3.4) K/uL [place] # (Auto) 0.77 H (0.11-0.59) K/uL Eos # (Auto) 0.60 H (0-0.5) K/uL Baso # (Auto) 0.02 (0-0.2) K/uL Immature Gran # (Auto) 0.02 (0.00-0.02) K/uL Sodium 138 (136-145) mmol/L Potassium 3.5 (3.5-5.1) mmol/L Chloride 105 (98-107) mmol/L Carbon Dioxide 25 (21-32) mmol/L Anion Gap 8.0 (3-11) BUN 6 L (7-18) mg/dl Creatinine 0.28 L (0.6-1.4) mg/dl Est Cr Clr Drug Dosing 395.8 ml/min Est GFR ( Amer) > 150.0 ml/min Est GFR (Non-Af Amer) > 150.0 ml/min BUN/Creatinine Ratio 19.9 (10-20) Glucose 106 H (70-99) mg/dl POC Glucose 103 H (70-99) mg/dl Calcium 9.5 (8.5-10.1) mg/dl Phosphorus 3.6 (2.5-4.9) mg/dl Magnesium 1.8 (1.8-2.4) mg/dl Total Bilirubin 0.6 (0.2-1) mg/dl AST 15 (15-37) U/L ALT 25 (12-78) U/L Alkaline Phosphatase 50 (45-117) U/L Total Protein 6.5 (6.4-8.2) gm/dl Albumin 3.1 L (3.4-5.0) gm/dl Globulin 3.4 (2.5-4.0) gm/dl Albumin/Globulin Ratio 0.9 (0.9-2) PG Care Time/CCT Total # of Minutes Spent Total Time Spent with Patient: Total time spent is greater than 50% in c oordination of care (as documented) at patient's floor/unit and/or counseling patient: Coding Level of Care Code 38940 Subseq Hosp Care Lvl 3 Diagnoses Hypotension I95.9 Abdominal distention R14.0 Ileus K56.7 Constipation K59.00 Leg edema R60.0 HTN (hypertension) I10 Recurrent UTI (urinary tract infection) N39.0 Leukocytosis D72.828 Leukocytosis type: other HLD (hyperlipidemia) E78.5 Quadriplegia G82.50 Diabetes E11.9 Sacral wound S31.000A Suprapubic catheter Z93.59 Anemia D64.9 Hyponatremia E87.1 Pemphigoid L12.9 DVT prophylaxis Z29.9 (1) Leukocytosis Leukocytosis type: other Qualified Code(s): D72.828 - Other elevated white blood cell count
[2020-11-08] MEDS ORDERED: MAGNESIUM CITRATE 296 ML/BTL PO STA (12:16)
[2020-11-08] MEDS: bisacodyL 10 MG SUPP PR SCH (12:45)
[2020-11-09] MEDS: HEPARIN SOD 5,000 UNIT/0.5 ML VIAL SQ SCH ×2 (05:26→22:46)
[2020-11-09 07:43] LABS: BUN Creatinine Ratio 19.5 (10-20); Blood Urea Nitrogen 6 mg/dl (7-18); Calcium 9.5 mg/dl (8.5-10.1); Carbon Dioxide 26 mmol/L (21-32); Chloride 104 mmol/L (98-107); Creatinine Clr Calc Pharmacy 355.1 ml/min; Est GFR (African American) > 150.0 ml/min; Est GFR (Non-African American) > 150.0 ml/min; Glucose 107 mg/dl (70-99); Magnesium 2.1 mg/dl (1.8-2.4); Potassium 3.6 mmol/L (3.5-5.1); Sodium 137 mmol/L (136-145)
[2020-11-09] MEDS: OXYBUTYNIN CHLORIDE 5 MG TAB PO SCH ×3 (08:55→22:46)
[2020-11-09] MEDS: amLODIPine BESYLATE 5 MG TAB PO SCH (08:56)
[2020-11-09] MEDS: BACLOFEN 20 MG TAB PO SCH ×3 (08:56→22:46)
[2020-11-09] MEDS: ATORVASTATIN 20 MG TAB PO SCH (08:58)
[2020-11-09] MEDS: FAMOTIDINE 40 MG TABLET PO SCH (08:58)
[2020-11-09] MEDS: FOLIC ACID 1 MG TAB PO SCH (08:58)
[2020-11-09] MEDS: predniSONE 10 MG TABLET PO SCH (08:58)
[2020-11-09] MEDS: ASCORBIC ACID 500 MG TAB PO SCH (08:59)
[2020-11-09] MEDS: POLYETHYLENE (MIRALAX) 17 GM PACK PO SCH (08:59)
[2020-11-09] MEDS: INSULIN ASPART 100 UNITS/ML 3 ML PEN SC SCH ×4 (09:00→22:47)
[2020-11-09] MEDS: bisacodyL 10 MG SUPP PR SCH (09:00)
[2020-11-09] MEDS ORDERED: metHOTREXate sodium 2.5 MG TAB PO SCH (09:00)
--- NOTE | 2020-11-09 10:57 | Pharmacy Report ---
Pharmacy Glycemic Sign Off Nt - Date of Service November 09, 2020 - Assessment & Plan ASSESSMENT: * Pharmacy was consulted by Dr Noble on 11/05 for glycemic control and to write orders per [facility] inpatient glycemic control protocol. * Major changes made by pharmacy to antidiabetic regimen include: * adding SSI * Patient has been receiving < 10 units of SSI daily, no basal insulin needed * Do not anticipate further changes in patient status that would quickly deteriorate glycemic control (i.e. patient to be NPO for upcoming procedure, steroids tapering, starting tube feedings, etc). * Please see recommendations for outpatient antidiabetic regimen below. PLAN FOR INPATIENT GLYCEMIC CONTROL: No changes needed to current regimen. * Hold basal - Fasting BSGs within range currently * Continue NovoLog per scale ACHS/Q6hrs while NPO * Goal range = 110-140 mg/dl * CF = 25 mg/dl/unit * CR = 1 unit for ever 9 g CHO consumed * Pharmacy is signing off of glycemic consult and will no longer be making adjustments to inpatient regimen. Please feel free to re-consult if needed. Thank you. DISCHARGE RECOMMENDATIONS: * A1c 7.0 % on 10/2020 - recommend continuation of home oral diabetic medications on discharge as long as no contraindications exist
--- NOTE | 2020-11-09 13:38 | Hospitalist Progress Note ---
Date of Service November 09, 2020 Assessment & Plan (1) Abdominal distention: Initial complaint on arrival and persisted was significant abdominal distention and constipation likely secondary to recent transition to SNF and his bowel regimen was not consistent like it is at home. - He has had previous bowel issues including possible midline volvulus on admission in 03/2020 requiring NG tube. - CT abd/pel on admission without obstruction or volvulus. - Presently on Miralax and bisacodyl 20 mg [place] daily (he reports using glycerin suppository at home). (2) Hypotension: He was recently started on both lisinopril and losartan in the last week--both are on his medication list from the group home-unclear why this was done. - BPs now normal to high after holding lisinopril, losartan, amlodipine since admission. - Restarted amlodipine and presently 120/60. (3) Ileus: Chronic ileus and constipation causing abdominal distension-as above (4) HTN (hypertension): Back and forth high/low. IV hydralazine 5 mg x 1 given on 11/07 for systolic blood pressure 225. - Continue amlodipine 10 mg PO daily (5) HLD (hyperlipidemia): Patient is on atorvastatin 20 mg daily, can continue (6) Quadriplegia: Supportive care, frequent turning. With sacral decubitus ulcer. (7) Diabetes: [id number], patient is on metformin and glipizide. Hemoglobin A1c was 7.0% last admission. - Diabetic diet - Continue sliding scale insulin (8) Sacral wound: Does not appear to be infected as per my review of pictures from 11/06/2020. 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 - Can flush as per patient's home regimen (10) Anemia: Hemoglobin mildly low at 11.4-12, MCV normal 89.9. Likely anemia of chronic disease, anemia also may be due to to methotrexate use. No bleeding from anywhere noted. - Stable today at 12.5. (11) Pemphigoid: Continue chronic prednisone 10 mg daily and no need for stress dose steroids at this time as blood pressures have improved with IV fluids and holding antihypertensives as above. - Continue methotrexate - Continue folic acid - Needs to get re-established with a DERM as an outpt (12) DVT prophylaxis: Heparin 7,500 SQ Q12h Admission and Anticipated Discharge Date Admission Date: November 07, 2020 Subjective Still having episodes of "rigid" stomach where he feels his abdomen gets firm and he becomes mildly short of breath. Reports no fevers/chills, chest pain, abdominal pain, nausea, or vomiting. Physical Exam Constitutional: WD/WN, vitals as above Eyes: EOM intact bilaterally; no conjunctival abnormality ENMT: external ear and nose normal, oropharynx normal Neck: trachea midline, no thyromegaly normal visual inspection Respiratory: normal respiratory effort, lungs clear to auscultation no respiratory distress Cardiovascular: RRR, no murmur, no edema Gastrointestinal (Abdomen): Inspection/Auscultation: + abdomen distended Percussion/Palpation: + abdomen tender and abdomen soft; no guarding and abdomen not rigid Musculoskeletal: Head/Neck/Chest: + head abnormal to inspection and normocephalic Extremities: + abnormal strength Skin: no rashes, warm and dry Neurologic: moves all extremities and awake Psychiatric: Orientation: alert, oriented to person and cooperative Results & Data Results & Data ([facility]) Vital Signs (Past 12 Hours) Vital Signs Temp Pulse Pulse Resp BP Pulse Ox 11/09/20 11:38 37.0 C 85 22 120/62 97 11/09/20 08:00 62 11/09/20 07:37 36.6 C 65 22 164/80 H 95 11/09/20 04:37 36.5 C 62 18 109/71 97 PG Care Time/CCT Total # of Minutes Spent Total Time Spent with Patient: Total time spent is greater than 50% in coordination of care (as documented) at patient's floor/unit and/or counseling patient: Coding Level of Care Code 19543 Subseq Hosp Care Lvl 2 Diagnoses Abdominal distention R14.0 Hypotension I95.9 Ileus K56.7 HTN (hypertension) I10 HLD (hyperlipidemia) E78.5 Quadriplegia G82.50 Diabetes E11.9 Sacral wound S31.000A Suprapubic catheter Z93.59 Anemia D64.9 Pemphigoid L12.9 DVT prophylaxis Z29.9
[2020-11-10] MEDS: INSULIN ASPART 100 UNITS/ML 3 ML PEN SC SCH ×4 (08:06→21:06)
[2020-11-10] MEDS: bisacodyL 10 MG SUPP PR SCH (08:10)
[2020-11-10] MEDS: HEPARIN SOD 5,000 UNIT/0.5 ML VIAL SQ SCH ×2 (08:12→21:03)
[2020-11-10] MEDS: amLODIPine BESYLATE 5 MG TAB PO SCH (08:13)
[2020-11-10] MEDS: OXYBUTYNIN CHLORIDE 5 MG TAB PO SCH ×3 (08:13→20:06)
[2020-11-10] MEDS: ATORVASTATIN 20 MG TAB PO SCH (08:13)
[2020-11-10] MEDS: predniSONE 10 MG TABLET PO SCH (08:13)
[2020-11-10] MEDS: POLYETHYLENE (MIRALAX) 17 GM PACK PO SCH (08:14)
[2020-11-10] MEDS: FOLIC ACID 1 MG TAB PO SCH (08:14)
[2020-11-10] MEDS: FAMOTIDINE 40 MG TABLET PO SCH (08:14)
[2020-11-10] MEDS: BACLOFEN 20 MG TAB PO SCH ×3 (08:14→20:07)
[2020-11-10] MEDS: ASCORBIC ACID 500 MG TAB PO SCH (08:14)
--- NOTE | 2020-11-10 16:37 | Hospitalist Progress Note ---
Date of Service November 10, 2020 Assessment & Plan (1) Abdominal distention: Initial complaint on arrival and persisted was significant abdominal distention and constipation likely secondary to recent transition to SNF and his bowel regimen was not consistent like it is at home. - He has had previous bowel issues including possible midline volvulus on admission in 03/2020 requiring NG tube. - CT abd/pel on admission without obstruction or volvulus. - Presently on Miralax and bisacodyl 20 mg HI daily (declined today as per subjective). Had good BM yesterday and actually had diarrhea. Will take suppository tomorrow and hopefully get more into home routine. (2) Hypotension: He was recently started on both lisinopril and losartan in the last week--both are on his medication list from the residential-unclear why this was done. - BPs now normal to high after holding lisinopril, losartan, amlodipine since admission. - Restarted amlodipine and presently 170/100. - Will restart home lisinopril tomorrow AM. (3) Ileus: Chronic ileus and constipation causing abdominal distension-as above (4) HTN (hypertension): Back and forth high/low. IV hydralazine 5 mg x 1 given on 11/07 for systolic blood pressure 225. - Continue amlodipine 10 mg PO daily - Restart lisinopril as well. (5) HLD (hyperlipidemia): Patient is on atorvastatin 20 mg daily, can continue (6) Quadriplegia: Supportive care, frequent turning. With sacral decubitus ulcer. (7) Diabetes: [id number], patient is on metformin and glipizide. Hemoglobin A1c was 7.0% last admission. - Diabetic diet - Continue sliding scale insulin (8) Sacral wound: Does not appear to be infected as per my review of pictures from 11/06/2020. 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 Now with some blocking. Will change catheter. - Can flush as per patient's home regimen (10) Anemia: Hemoglobin mildly low at 11.4-12, MCV normal 89.9. Likely anemia of chronic disease, anemia also may be due to to methotrexate use. No bleeding from anywhere noted. - Stable on 11/09 at 12.5. (11) Pemphigoid: Continue chronic prednisone 10 mg daily and no need for stress dose steroids at this time as blood pressures have improved with IV fluids and holding antihypertensives as above. - Continue methotrexate - Continue folic acid - Needs to get re-established with a DERM as an outpt (12) DVT prophylaxis: Heparin 7,500 SQ Q12h Admission and Anticipated Discharge Date Admission Date: November 07, 2020 Subjective Doing well today. Declined medications for constipation as he feels he needs to get "back on schedule." Will take them tomorrow. His suprapubic catheter is kinking up, and he requests we change it because this usually occurs when it has been in too long. Reports no fevers/chills, chest pain, shortness of breath, abdominal pain, nausea, or vomiting. Physical Exam Constitutional: WD/WN, vitals as above Eyes: EOM intact bilaterally; no conjunctival abnormality ENMT: external ear and nose normal, oropharynx normal Neck: trachea midline, no thyromegaly normal visual inspection Respiratory: normal respiratory effort, lungs clear to auscultation no respiratory distress Cardiovascular: RRR, no murmur, no edema Gastrointestinal (Abdomen): Inspection/Auscultation: + abdomen distended Percussion/Palpation: abdomen soft; abdomen nontender, no guarding and abdomen not rigid Musculoskeletal: no cyanosis or clubbing, extremities motor strength 5/5 Head/Neck/Chest: normocephalic Extremities: + abnormal strength Skin: no rashes, warm and dry Neurologic: moves all extremities and awake Psychiatric: Orientation: alert, oriented to person and cooperative Results & Data Results & Data ([facility]) Vital Signs (Past 12 Hours) Vital Signs Temp Pulse Pulse Resp BP Pulse Ox 11/10/20 14:55 70 11/10/20 11:40 36.8 C 62 19 170/96 H 97 11/10/20 07:27 36.3 C L 67 20 165/90 H 97 11/10/20 07:15 60 PG Care Time/CCT Total # of Minutes Spent Total Time Spent with Patient: Total time spent is greater than 50% in coordination of care (as documented) at patient's floor/unit and/or counseling patient: Coding Level of Care Code 65021 Subseq Hosp Care Lvl 2 Diagnoses Abdominal distention R14.0 Hypotension I95.9 Ileus K56.7 HTN (hypertension) I10 HLD (hyperlipidemia) E78.5 Quadriplegia G82.50 Diabetes E11.9 Sacral wound S31.000A Suprapubic catheter Z93.59 Anemia D64.9 Pemphigoid L12.9 DVT prophylaxis Z29.9
[2020-11-11 06:36] LABS: Hematocrit (blood only) 40.2 % (42-52); Hemoglobin 13.2 g/dL (14.0-18.0); Mean Corpuscular Hemoglobin 29.1 pg (25-34); Mean Corpuscular Hgb Conc 32.8 g/dL (32-36); Mean Corpuscular Volume 88.7 fL (80-100); Platelet Count 335 K/uL (130-400); RDW Coefficient of Variation 16.1 % (11.5-14.5); RDW Standard Deviation 52.3 fL (36.4-46.3); Red Blood Count 4.53 M/uL (4.7-6.1); White Blood Count 9.07 K/uL (4.8-10.8)
[2020-11-11 06:59] LABS: BUN Creatinine Ratio 19.5 (10-20); Blood Urea Nitrogen 9 mg/dl (7-18); Calcium 9.2 mg/dl (8.5-10.1); Carbon Dioxide 28 mmol/L (21-32); Chloride 106 mmol/L (98-107); Creatinine Clr Calc Pharmacy 240.7 ml/min; Est GFR (African American) > 150.0 ml/min; Est GFR (Non-African American) 130.8 ml/min; Glucose 123 mg/dl (70-99); Potassium 3.6 mmol/L (3.5-5.1); Sodium 140 mmol/L (136-145)
[2020-11-11] MEDS: INSULIN ASPART 100 UNITS/ML 3 ML PEN SC SCH ×4 (08:25→20:56)
[2020-11-11] MEDS: POLYETHYLENE (MIRALAX) 17 GM PACK PO SCH (08:46)
[2020-11-11] MEDS: BACLOFEN 20 MG TAB PO SCH ×3 (08:51→21:10)
[2020-11-11] MEDS: amLODIPine BESYLATE 5 MG TAB PO SCH (08:51)
[2020-11-11] MEDS: ATORVASTATIN 20 MG TAB PO SCH (08:52)
[2020-11-11] MEDS: OXYBUTYNIN CHLORIDE 5 MG TAB PO SCH ×3 (08:52→21:10)
[2020-11-11] MEDS: FOLIC ACID 1 MG TAB PO SCH (08:52)
[2020-11-11] MEDS: FAMOTIDINE 40 MG TABLET PO SCH (08:52)
[2020-11-11] MEDS: ASCORBIC ACID 500 MG TAB PO SCH (08:52)
[2020-11-11] MEDS: HEPARIN SOD 5,000 UNIT/0.5 ML VIAL SQ SCH ×2 (08:53→20:59)
[2020-11-11] MEDS: lisinopril 40 MG TAB PO SCH (08:53)
[2020-11-11] MEDS: bisacodyL 10 MG SUPP PR SCH ×2 (08:54→08:55)
[2020-11-11] MEDS: predniSONE 10 MG TABLET PO SCH (08:54)
[2020-11-11] MEDS ORDERED: POTASSIUM CHLORIDE CRTAB 20 MEQ TABCR PO STA (11:53)
[2020-11-11] MEDS ORDERED: GLYCERIN ADULT 12 SUPP/BOX SUPP PR ONE (12:00)
[2020-11-11] MEDS ORDERED: FUROSEMIDE 20 MG in SYRINGE 0 ML IV ONE (12:00)
--- NOTE | 2020-11-11 15:35 | Hospitalist Progress Note ---
Date of Service November 11, 2020 Assessment & Plan (1) Abdominal distention: Initial complaint on arrival and persisted was significant abdominal distention and constipation likely secondary to recent transition to SNF and his bowel regimen was not consistent like it is at home. - He has had previous bowel issues including possible midline volvulus on admission in 03/2020 requiring NG tube. - CT abd/pel on admission without obstruction or volvulus. - Back to glycerin suppository. Hopefully will have BM today to try to get back on home routine. Plan for discharge tomorrow. (2) Hypotension: He was recently started on both lisinopril and losartan in the last week - both are on his medication list from the assisted - unclear why this was done. - BPs normal to high after holding lisinopril, losartan, amlodipine since admission. - Restarted amlodipine and presently 170/100. - Restarted lisinopril on 11/11. This is actually a "new" home med for him as he was not on it prior to going to [facility]. (3) Ileus: Chronic ileus and constipation causing abdominal distension-as above (4) HTN (hypertension): Back and forth high/low. IV hydralazine 5 mg x 1 given on 11/07 for systolic blood pressure 225. - Continue amlodipine 10 mg PO daily - Restarted lisinopril as well. (5) HLD (hyperlipidemia): Patient is on atorvastatin 20 mg daily, can continue (6) Quadriplegia: Supportive care, frequent turning. With sacral decubitus ulcer. (7) Diabetes: [id number], patient is on metformin and glipizide. Hemoglobin A1c was 7.0% last admission. - Diabetic diet - Continue sliding scale insulin -> Blood sugars are running a bit high at 120 - 240. Will tighten sliding scale. 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 Changed again on 11/10 for some blocking. - Can flush as per patient's home regimen (10) Anemia: Hemoglobin mildly low at 11.4-12, MCV normal 89.9. Likely anemia of chronic disease, anemia also may be due to to methotrexate use. No bleeding from anywhere noted. - Stable on 11/09 at 12.5. (11) Pemphigoid: Continue chronic prednisone 10 mg daily and no need for stress dose steroids at this time as blood pressures have improved with IV fluids and holding antihypertensives as above. - Continue methotrexate - Continue folic acid - Needs to get re-established with a DERM as an outpt (12) DVT prophylaxis: Heparin 7,500 SQ Q12h Admission and Anticipated Discharge Date Admission Date: November 07, 2020 Subjective Doing well today. Hoping to have a BM in the afternoon with a glycerin suppository. Reports no fevers/chills, chest pain, shortness of breath, abdominal pain, nausea, or vomiting. Physical Exam Constitutional: WD/WN, vitals as above Eyes: EOM intact bilaterally; no conjunctival abnormality ENMT: external ear and nose normal, oropharynx normal Neck: trachea midline, no thyromegaly normal visual inspection Respiratory: normal respiratory effort, lungs clear to auscultation no respiratory distress Cardiovascular: RRR, no murmur, no edema Gastrointestinal (Abdomen): Inspection/Auscultation: + abdomen distended Percussion/Palpation: abdomen soft; abdomen nontender, no guarding and abdomen not rigid Musculoskeletal: no cyanosis or clubbing, extremities motor strength 5/5 Head/Neck/Chest: normocephalic Extremities: + abnormal strength Skin: no rashes, warm and dry Neurologic: moves all extremities and awake Psychiatric: Orientation: alert, oriented to person and cooperative Results & Data Results & Data ([facility]) Vital Signs (Past 12 Hours) Vital Signs Temp Pulse Resp BP BP Pulse Ox 11/11/20 14:58 36.6 C 66 16 118/72 95 11/11/20 12:53 87 157/78 H 98 11/11/20 07:13 36.4 C L 68 16 157/103 H 96 PG Care Time/CCT Total # of Minutes Spent Total Time Spent with Patient: Total time spent is greater than 50% in coordination of care (as documented) at patient's floor/unit and/or counseling patient: Coding Level of Care Code 74574 Subseq Hosp Care Lvl 2 Diagnoses Abdominal distention R14.0 Hypotension I95.9 Ileus K56.7 HTN (hypertension) I10 HLD (hyperlipidemia) E78.5 Quadriplegia G82.50 Diabetes E11.9 Sacral wound S31.000A Suprapubic catheter Z93.59 Anemia D64.9 Pemphigoid L12.9 DVT prophylaxis Z29.9
[2020-11-12] MEDS: FOLIC ACID 1 MG TAB PO SCH (08:56)
[2020-11-12] MEDS: ATORVASTATIN 20 MG TAB PO SCH (08:56)
[2020-11-12] MEDS: ASCORBIC ACID 500 MG TAB PO SCH (08:57)
[2020-11-12] MEDS: FAMOTIDINE 40 MG TABLET PO SCH (08:57)
[2020-11-12] MEDS: predniSONE 10 MG TABLET PO SCH (08:57)
[2020-11-12] MEDS: BACLOFEN 20 MG TAB PO SCH ×3 (08:58→21:20)
[2020-11-12] MEDS: OXYBUTYNIN CHLORIDE 5 MG TAB PO SCH ×3 (08:58→21:20)
[2020-11-12] MEDS: POLYETHYLENE (MIRALAX) 17 GM PACK PO SCH (09:00)
[2020-11-12] MEDS: lisinopril 40 MG TAB PO SCH (09:01)
[2020-11-12] MEDS: HEPARIN SOD 5,000 UNIT/0.5 ML VIAL SQ SCH ×2 (09:02→21:17)
[2020-11-12] MEDS: amLODIPine BESYLATE 5 MG TAB PO SCH (09:02)
[2020-11-12] MEDS: INSULIN ASPART 100 UNITS/ML 3 ML PEN SC SCH ×4 (09:09→21:19)
--- NOTE | 2020-11-12 16:37 | Hospitalist Progress Note ---
Date of Service November 12, 2020 Assessment & Plan (1) Abdominal distention: Initial complaint on arrival and persisted was significant abdominal distention and constipation likely secondary to recent transition to SNF and his bowel regimen was not consistent like it is at home. - He has had previous bowel issues including possible midline volvulus on admission in 03/[address] requiring NG tube. - CT abd/pel on admission without obstruction or volvulus. - Back to glycerin suppository. Still no BM. Arranging transport for tomorrow and will give suppository then. (2) Hypotension: He was recently started on both lisinopril and losartan in the last week - [facility] - unclear why this was done. - BPs normal to high after holding lisinopril, losartan, amlodipine since admission. - Restarted amlodipine and presently 125/75. - Restarted lisinopril on 11/11. This is actually a "new" home med for him as he was not on it prior to going to [facility]. (3) Ileus: Chronic ileus and constipation causing abdominal distension-as above (4) HTN (hypertension): Back and forth high/low. IV hydralazine 5 mg x 1 given on 11/07 for systolic blood pressure 225. - Continue amlodipine 10 mg PO daily - Restarted lisinopril as well. (5) HLD (hyperlipidemia): Patient is on atorvastatin 20 mg daily, can continue (6) Quadriplegia: Supportive care, frequent turning. With sacral decubitus ulcer. (7) Diabetes: [id number], patient is on metformin and glipizide. Hemoglobin A1c was 7.0% last admission. - Diabetic diet - Continue sliding scale insulin -> Blood sugars are running a bit high at 120 - 240. Will tighten sliding scale. 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 Changed again on 11/10 for some blocking. - Can flush as per patient's home regimen (10) Anemia: Hemoglobin mildly low at 11.4-12, MCV normal 89.9. Likely anemia of chronic disease, anemia also may be due to to methotrexate use. No bleeding from anywhere noted. - Stable on 11/09 at 12.5. (11) Pemphigoid: Continue chronic prednisone 10 mg daily and no need for stress dose steroids at this time as blood pressures have improved with IV fluids and holding antihypertensives as above. - Continue methotrexate - Continue folic acid - Needs to get re-established with a DERM as an outpt (12) DVT prophylaxis: Heparin 7,500 SQ Q12h Admission and Anticipated Discharge Date Admission Date: November 07, 2020 Subjective Doing well today. No BM. Abdomen still soft per him. Reports no fevers/chills, chest pain, shortness of breath, abdominal pain, nausea, or vomiting. Physical Exam Constitutional: WD/WN, vitals as above Eyes: EOM intact bilaterally; no conjunctival abnormality ENMT: external ear and nose normal, oropharynx normal Neck: trachea midline, no thyromegaly normal visual inspection Respiratory: normal respiratory effort, lungs clear to auscultation no respiratory distress Cardiovascular: RRR, no murmur, no edema Gastrointestinal (Abdomen): Inspection/Auscultation: abdomen not distended Percussion/Palpation: abdomen soft; abdomen nontender, no guarding and abdomen not rigid Musculoskeletal: no cyanosis or clubbing, extremities motor strength 5/5 Head/Neck/Chest: normocephalic Extremities: + abnormal strength Skin: no rashes, warm and dry Neurologic: moves all extremities and awake Psychiatric: Orientation: alert, oriented to person and cooperative Results & Data Results & Data ([facility]) Vital Signs (Past 12 Hours) Vital Signs Temp Pulse Resp BP Pulse Ox 11/12/20 08:55 71 125/75 98 11/12/20 08:32 36.5 C 62 18 141/61 H 96 PG Care Time/CCT Total # of Minutes Spent Total Time Spent with Patient: Total time spent is greater than 50% in coordination of care (as documented) at patient's floor/unit and/or counseling patient: Coding Level of Care Code 18305 Subseq Hosp Care Lvl 2 Diagnoses Abdominal distention R14.0 Hypotension I95.9 Ileus K56.7 HTN (hypertension) I10 HLD (hyperlipidemia) E78.5 Quadriplegia G82.50 Diabetes E11.9 Sacral wound S31.000A Suprapubic catheter Z93.59 Anemia D64.9 Pemphigoid L12.9 DVT prophylaxis Z29.9
[2020-11-13] MEDS: OXYBUTYNIN CHLORIDE 5 MG TAB PO SCH ×3 (09:18→21:36)
[2020-11-13] MEDS: lisinopril 40 MG TAB PO SCH (09:18)
[2020-11-13] MEDS: BACLOFEN 20 MG TAB PO SCH ×3 (09:19→21:36)
[2020-11-13] MEDS: INSULIN ASPART 100 UNITS/ML 3 ML PEN SC SCH ×4 (09:23→21:28)
[2020-11-13] MEDS: predniSONE 10 MG TABLET PO SCH (09:25)
[2020-11-13] MEDS: FAMOTIDINE 40 MG TABLET PO SCH (09:25)
[2020-11-13] MEDS: amLODIPine BESYLATE 5 MG TAB PO SCH (09:25)
[2020-11-13] MEDS: ASCORBIC ACID 500 MG TAB PO SCH (09:25)
[2020-11-13] MEDS: ATORVASTATIN 20 MG TAB PO SCH (09:25)
[2020-11-13] MEDS: FOLIC ACID 1 MG TAB PO SCH (09:26)
[2020-11-13] MEDS: POLYETHYLENE (MIRALAX) 17 GM PACK PO SCH (10:41)
[2020-11-13] MEDS: HEPARIN SOD 5,000 UNIT/0.5 ML VIAL SQ SCH ×2 (10:42→21:36)
[2020-11-13] MEDS: GLYCERIN ADULT 12 SUPP/BOX SUPP PR ONE ×2 (10:44→11:04)
--- NOTE | 2020-11-13 17:02 | Discharge Summary ---
Date of Service November 13, 2020 Admission HPI Per Admitting Provider This is a 50-year-old male with past mental history of quadriplegia, urinary retention with chronic suprapubic catheter, hypertension, hyperlipidemia, and previous history of a UTI that presents today complaining of some abdominal bloating. Patient is a good historian. Patient tells me he is typically cared for in his home with a care worker. However, the care worker had a Covid exposure and the patient was moved to [facility] about 8 days ago while this worker was under quarantine. He tells me he typically moves his bowels much better at home. Starting 6 days prior to presentation, he noticed worsening abdominal bloating. He denied any nausea or vomiting. He did have a suppository at the [facility] and told me he had significant amount of gas but no BM. Patient was also found to be somewhat hypotensive and was transferred to the emergency room for further evaluation. At the time my evaluation, patient is awake and alert. He seems to be in no distress outside of his abdominal bloating. Of some concern, patient had a mildly elevated will white count at 14 along with an elevated lactic acid. His blood pressure was noted to be 90/61 but this is improved with fluid ministration. Of note, patient tells me that his blood pressure medication was changed after his arrival to the [facility], he thinks a medication was added but was unclear what this medication was. I do note that he is on amlodipine and lisinopril and that both these medications appear on a discharge summary from 04/17. He does also tell me that his suprapubic catheter was changed at the facility yesterday, he did have a small amount of hematuria after this procedure. On review of records, patient had a urine culture on 10/26 that was read as only yeast. Principal Diagnosis Constipation Discharge Exam Constitutional WD/WN, vitals as above Eyes EOM intact bilaterally; no conjunctival abnormality ENMT external ear and nose normal, oropharynx normal Neck trachea midline, no thyromegaly normal visual inspection Respiratory normal respiratory effort, lungs clear to auscultation no respiratory distress Cardiovascular RRR, no murmur, no edema Gastrointestinal (Abdomen) Inspection/Auscultation: abdomen not distended Percussion/Palpation: abdomen soft; abdomen nontender, no guarding and abdomen not rigid Musculoskeletal no cyanosis or clubbing, extremities motor strength 5/5 Head/Neck/Chest: normocephalic Extremities: + abnormal strength Skin no rashes, warm and dry Neurologic moves all extremities and awake Psychiatric Orientation: alert, oriented to person and cooperative Discharge Data Allergies Allergy/AdvReac Type Severity Reaction Status Date / Time Sulfa (Sulfonamide Allergy Swelling Verified 11/05/20 08:44 Antibiotics) of Lip/Tongue/Throat lactose AdvReac Unknown Verified 11/05/20 08:44 Consultations 11/05/20 10:37 ED Decision to Admit Stat 11/07/20 11:54 Consult Gastroenterology Routine Ordered Studies 11/05/20 07:06 US venous doppler LE BI Stat 11/05/20 11:37 CT abd pelvis oral and IV con Stat Hospital Course (1) Abdominal distention: Initial complaint on arrival and persisted was significant abdominal distention and constipation likely secondary to recent transition to SNF and his bowel regimen was not consistent like it is at home. - He has had previous bowel issues including possible midline volvulus on admission in 03/2020 requiring NG tube. - CT abd/pel on admission without obstruction or volvulus. - Good BM today. Ready to go home. (2) Hypotension: He was recently started on both lisinopril and losartan in the last week - both are on his medication list from the [facility] - unclear why this was done. - BPs normal to high after holding lisinopril, losartan, amlodipine since admission. - Restarted amlodipine and presently 125/75. - Restarted lisinopril on 11/11. This is actually a "new" home med for him as he was not on it prior to going to [facility]. (3) Ileus: Chronic ileus and constipation causing abdominal distension-as above (4) HTN (hypertension): Back and forth high/low. IV hydralazine 5 mg x 1 given on 11/07 for systolic blood pressure 225. - Continue amlodipine 10 mg PO daily - Restarted lisinopril as well. (5) HLD (hyperlipidemia): Patient is on atorvastatin 20 mg daily, can continue (6) Quadriplegia: Supportive care, frequent turning. With sacral decubitus ulcer. (7) Diabetes: [id number], patient is on metformin and glipizide. Hemoglobin A1c was 7.0% last admission. - Diabetic diet - Continue oral meds on discharge. 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 Changed again on 11/10 for some blocking. - Can flush as per patient's home regimen (10) Anemia: Hemoglobin mildly low at 11.4-12, MCV normal 89.9. Likely anemia of chronic disease, anemia also may be due to to methotrexate use. No bleeding from anywhere noted. - Stable on 11/09 at 12.5. (11) Pemphigoid: Continue chronic prednisone 10 mg daily and no need for stress dose steroids at this time as blood pressures have improved with IV fluids and holding antihypertensives as above. - Continue methotrexate - Continue folic acid - Needs to get re-established with a DERM as an outpt (12) DVT prophylaxis: Heparin 7,500 SQ Q12h I certify that this patient is under my care and that I, or a physicians medical claims assistant working with me, had a face to-face encounter that meets the home health [id number] encounter requirements with this patient. The encounter with the patient was in whole, or in part, for the following medical condition, which is the primary reason for home health care (list medical condition): I certify that, based on my findings, the following services are medically necessary home health services: Home nursing My clinical findings support the need for the above services because: Paraplegia Difficulty with transport Further, I certify that my clinical findings support that this patient is homebound (i.e. absences from home require considerable and taxing effort and are for medical reasons or shinto services or infrequently or of short duration when for other reasons) because: absences from home require considerable and taxing effort Certification for Home Health Services: Based on the above findings, I certify that this patient is confined to the home and needs intermittent [facility] care, physical therapy and/or speech therapy or continues to need occupational therapy. The patient is under my care, and I have initiated the establishment of the plan of care. This patient will be followed by a physician who will periodically review the plan of care. Total Time Total Time Spent Total Time Spent (In Minutes): 35 Discharge Plan Discharge Items Patient Disposition: Home - Home Health Services Reason For Visit: HYPOTENSION Discharge Diagnosis: Low blood pressure; constipation Activity: Resume your previous activity Non-emergency contact: Primary Care Provider Call non-emergency contact if: your symptoms worsen Follow-up/Referrals: Pasquale Harrington DO [Primary Care Provider] - 11/23/20 10:45 am Diet: Regular Addtl Attending Provider Instructions: Mr. Henry, You were admitted to the hospital with low blood pressure, stomach pain, and some shortness of breath. We adjusted your blood pressure and also tried to help with the constipation. Please return to your normal bowel regimen at home and hopefully you can get regular again. We did continue one of the blood pressure meds you were on at [facility]. Pending Studies at Discharge: No Stand-Alone Forms: My [facility], Smoking Cessation Medications and DC Order Prescriptions: Continued atorvastatin 20 mg tablet 20 mg PO DAILY RF: 0 amlodipine 10 mg tablet 10 mg PO DAILY RF: 0 prednisone 5 mg tablet 10 mg PO DAILY RF: 0 methotrexate sodium 2.5 mg tablet 15 mg PO WK RF: 0 oxybutynin chloride 5 mg tablet 5 mg PO TID RF: 0 metformin 500 mg tablet extended release 24 hr 1,000 mg PO AMPM RF: 0 baclofen 10 mg tablet 20 mg PO TID RF: 0 folic acid 1 mg tablet 1 mg PO DAILY RF: 0 ascorbic acid (vitamin C) [Vitamin C] 500 mg Tablet 500 mg PO DAILY RF: 0 diclofenac sodium [Voltaren] 1 % gel See Rx Instructions .ROUTE .COMPLEX Qty: 100 RF: 0 famotidine 40 mg tablet 40 mg PO DAILY RF: 0 glipizide 10 mg tablet extended release 24hr 10 mg PO QAM RF: 0 methenamine hippurate 1 gram Tablet 1 g PO BID RF: 0 lisinopril 40 mg tablet 40 mg PO DAILY Qty: 30 RF: 0 Discontinued potassium chloride 20 mEq tablet,ER particles/crystals 20 meq PO DAILY RF: 0 bisacodyl 10 mg Suppository 10 mg PA Q OTHER DAY PRN (Reason: Constipation) RF: 0 losartan 50 mg Tablet 50 mg PO DAILY RF: 0 glipizide 5 mg tablet extended release 24hr 5 mg PO QAM RF: 0 ciprofloxacin HCl 500 mg tablet 500 mg PO BID RF: 0 ondansetron [Zofran ODT] 4 mg Tablet,Disintegrating 4 mg PO Q6H PRN (Reason: Nausea) RF: 0 nitrofurantoin monohyd/m-cryst 100 mg capsule 100 mg PO BID RF: 0 Discharge Orders: Discharge Order (Routine); Ordered 11/13/20 Ordered By: Constantino Boucher/Other Patient Handouts: Healthy Meals for Diabetes Admission Data Admit Date/Time: 11/07/20 11:57 Attending Provider: Constantino Ness Admit Provider: Ernie Noble Primary Care Provider: Pasquale Harrington Other Providers: Ernie Noble ; Josh Wells Other Interventions: Discharge Summary Assessment (RN) Last Done: 11/13/20 13:15 Coding Level of Care Code D/C Day Management >30 mins Diagnoses Abdominal distention R14.0 Hypotension I95.9 Ileus K56.7 HTN (hypertension) I10 HLD (hyperlipidemia) E78.5 Quadriplegia G82.50 Diabetes E11.9 Sacral wound S31.000A Suprapubic catheter Z93.59 Anemia D64.9 Pemphigoid L12.9 DVT prophylaxis Z29.9
[2020-11-14] MEDS: POLYETHYLENE (MIRALAX) 17 GM PACK PO SCH (08:10)
[2020-11-14] MEDS: lisinopril 40 MG TAB PO SCH (08:38)
[2020-11-14] MEDS: predniSONE 10 MG TABLET PO SCH (08:38)
[2020-11-14] MEDS: amLODIPine BESYLATE 5 MG TAB PO SCH (08:39)
[2020-11-14] MEDS: OXYBUTYNIN CHLORIDE 5 MG TAB PO SCH (08:39)
[2020-11-14] MEDS: FOLIC ACID 1 MG TAB PO SCH (08:39)
[2020-11-14] MEDS: ASCORBIC ACID 500 MG TAB PO SCH (08:39)
[2020-11-14] MEDS: BACLOFEN 20 MG TAB PO SCH (08:39)
[2020-11-14] MEDS: ATORVASTATIN 20 MG TAB PO SCH (08:39)
[2020-11-14] MEDS: HEPARIN SOD 5,000 UNIT/0.5 ML VIAL SQ SCH (08:40)
[2020-11-14] MEDS: INSULIN ASPART 100 UNITS/ML 3 ML PEN SC SCH (08:45)
[2020-11-14] MEDS: FAMOTIDINE 40 MG TABLET PO SCH (09:34)
--- NOTE | 2020-11-14 10:39 | Urology Consultation ---
Date of Consultation November 14, 2020 Assessment & Plan (1) Suprapubic catheter: 50 year-old male patient, known to [facility] urology service, admitted with abdominal distention felt secondary to constipation and hypotension. -Urology consulted to assist in suprapubic catheter change prior to discharge. -He is afebrile. -Labs reviewed - white count and creatinine stable. -Using sterile technique, suprapubic catheter changed at bedside without difficulty. Catheter was flushed, patent, and did not appear obstructed. -He will be discharged home today with home health services. -Will continue with routine catheter changes and flushes as previously recommended. -Does have outpatient follow-up with urology service scheduled. -Expected clinical course reviewed with patient, all questions answered. Thank you for allowing us to participate in the acute care of Mr. Henry. Please reconsult us with additional questions, concerns or changes in patient status. History of Present Illness Reason for Consultation: Suprapubic tube change, possible obstruction Attending Physician: Charisma Hanson MD History of Present Illness 50-year-old male with past medical history of quadriplegia, urinary retention with chronic suprapubic catheter, hypertension, hyperlipidemia, and recurrent UTI that was admitted to the hospital on 11/05 with abdominal distension secondary to constipation, hypotension, and recurrent UTI. Urology consulted to assist in changing suprapubic catheter due to possible obstruction. Patient known to [facility] urology, follows with Dr. Nicole on a routine basis. Chart review: Afebrile Labs reviewed 11/11 - Wbc 9.07 Hgb 13.2 Creatinine 0.46 PSA 1.080 Urinalysis on admission +1 leukocytes, 0-4 rbc, 10-30 wbc, negative bacteria, negative nitrates. Urine culture 11/05 with yeast, not Bia Blood cultures / no growth after 5 days. Imaging - CT abd/pelvis - IMPRESSION: 1. No acute process within the abdomen or pelvis. 2. Right-sided nephrolithiasis. No ureteral calculi or hydronephrosis. 3. Possible sacral decubitus ulcer. No evidence for acute osteomyelitis. Patient seen and examined at bedside with Dr. Nicole. He reports he is feeling better overall since admission. Does report recent weight gain. Reports suprapubic catheter was irrigated by nursing staff and he believes this got pulled or dislodged. He states since then, he has felt the catheter has not been functioning properly. Catheter as outpatient has been changed on a weekly basis with routine flushes, typically twice daily, with sterile water. Denies dysuria or hematuria. Currently denies bladder pain or pressure. Denies fevers or chills. Denies nausea or vomiting. He is being discharged today at 11:00 am to home with home health services. Denies additional urologic concerns today. Allergies Allergy/AdvReac Type Severity Reaction Status Date / Time Sulfa (Sulfonamide Allergy Swelling Verified 11/05/20 08:44 Antibiotics) of Lip/Tongue/Throat lactose AdvReac Unknown Verified 11/05/20 08:44 Home Medications Medication Instructions Recorded Confirmed Type amlodipine 10 mg PO DAILY 05/11/18 11/05/20 History atorvastatin 20 mg PO DAILY 05/11/18 11/05/20 History baclofen 20 mg PO TID 05/11/18 11/05/20 History folic acid 1 mg PO DAILY 05/11/18 11/05/20 History metformin 1,000 mg PO AMPM 05/11/18 11/05/20 History methotrexate sodium 15 mg PO WK 05/11/18 11/05/20 History oxybutynin chloride 5 mg PO TID 05/11/18 11/05/20 History prednisone 10 mg PO DAILY 05/11/18 11/05/20 History ascorbic acid (vitamin C) [Vitamin 500 mg PO DAILY 09/11/18 11/05/20 History C] diclofenac sodium [Voltaren] See Rx Instructions .ROUTE 09/11/18 11/05/20 Rx .COMPLEX #100 gm famotidine 40 mg PO DAILY 03/30/20 11/05/20 History glipizide 10 mg PO QAM 10/26/20 11/05/20 History methenamine hippurate 1 g PO BID 11/05/20 11/05/20 History lisinopril 40 mg PO DAILY #30 tab 11/12/20 Rx Patient History Medical History Bladder stone Diabetes HLD (hyperlipidemia) HTN (hypertension) Hypertension Ileus Nephrolithiasis Neurogenic bladder Osteomyelitis Pemphigoid Pemphigus foliaceus Sacral wound Suprapubic catheter Surgical History History of hip surgery History of suprapubic catheter Previous back surgery Family History Mother Cancer Father Diabetes Grandfather Diabetes Social History Smoking Status: Never smoker Second Hand Exposure: No; Hx Alcohol Use: No Hx Substance Use: No Preferred Language: Citizen Of [place] Communication Ability: Effective Mammography Technologist Required: No Beliefs That Will Affect Care: None marital status: Single Current Living Situation Comment: Typically lives alone with daily care provider, nain Hernandez [place] Feels Safe at Home: Yes during the past year weight has: decreased > 10 lbs Assistive Devices: None Review of Systems Constitutional: as per Subjective / HPI; no fever and no chills Eyes: no problem reported Ear, Nose, Mouth, Throat: no dizziness Respiratory: no cough and no dyspnea Cardiovascular: no chest pain Gastrointestinal: as per Subjective / HPI Genitourinary: + as per Subjective / HPI Musculoskeletal: as per Subjective / HPI Neurologic: no dizziness Endocrine: no problem reported Hematologic / Lymphatic: no problem reported Physical Exam Constitutional: well developed and well nourished; no acute distress and not ill appearing ENMT: Ears: no external ear abnormality Nose: no external nose abnormality Neck: normal visual inspection and trachea midline Respiratory: normal respiratory effort and able to speak in complete sentences; no respiratory distress and no audible wheezes Cardiovascular: Extremities: no calf tenderness Gastrointestinal (Abdomen): Inspection/Auscultation: abdomen normal to inspection and + abdomen distended (Obese abdomen) Percussion/Palpation: abdomen soft; abdomen nontender and no guarding Skin: No visible rashes, lesions, or wounds noted. Neurologic: awake Psychiatric: Orientation: alert, oriented x 3 and cooperative Affect: euthymic affect Genitourinary: Suprapubic indwelling catheter intact, patent, draining clear yellow urine. Results & Data ([facility]) Vital Signs (Past 12 Hours) Vital Signs Temp Pulse Pulse Resp BP BP Pulse Ox 11/14/20 07:30 36.5 C 87 18 139/84 97 11/13/20 23:55 36.8 C 64 18 137/84 97 PG Care Time/CCT Total # of Minutes Spent Total Time Spent with Patient: Total time spent is greater than 50% in coordination of care (as documented) at patient's floor/unit and/or counseling patient: Coding Level of Care Code 72504 Inpt Consult Level 3 Diagnoses Suprapubic catheter Z93.59
--- NOTE | 2020-11-15 14:23 | Hospitalist Progress Note ---
Date of Service November 13, 2020 Assessment & Plan (1) Abdominal distention: Initial complaint on arrival and persisted was significant abdominal distention and constipation likely secondary to recent transition to SNF and his bowel regimen was not consistent like it is at home. - He has had previous bowel issues including possible midline volvulus on admission in 03/2020 requiring NG tube. - CT abd/pel on admission without obstruction or volvulus. - Good BM today. Ready to go home. (2) Hypotension: He was recently started on both lisinopril and losartan in the last week - both are on his medication list from the custodial - unclear why this was done. - BPs normal to high after holding lisinopril, losartan, amlodipine since admission. - Restarted amlodipine and presently 125/75. - Restarted lisinopril on 11/11. This is actually a "new" home med for him as he was not on it prior to going to [facility]. (3) Ileus: Chronic ileus and constipation causing abdominal distension-as above (4) HTN (hypertension): Back and forth high/low. IV hydralazine 5 mg x 1 given on 11/07 for systolic blood pressure 225. - Continue amlodipine 10 mg PO daily - Restarted lisinopril as well. (5) HLD (hyperlipidemia): Patient is on atorvastatin 20 mg daily, can continue (6) Quadriplegia: Supportive care, frequent turning. With sacral decubitus ulcer. (7) Diabetes: [id number], patient is on metformin and glipizide. Hemoglobin A1c was 7.0% last admission. - Diabetic diet - Continue oral meds on discharge. 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 Changed again on 11/10 for some blocking. - Can flush as per patient's home regimen (10) Anemia: Hemoglobin mildly low at 11.4-12, MCV normal 89.9. Likely anemia of chronic disease, anemia also may be due to to methotrexate use. No bleeding from anywhere noted. - Stable on 11/09 at 12.5. (11) Pemphigoid: Continue chronic prednisone 10 mg daily and no need for stress dose steroids at this time as blood pressures have improved with IV fluids and holding antihypertensives as above. - Continue methotrexate - Continue folic acid - Needs to get re-established with a DERM as an outpt (12) DVT prophylaxis: Heparin 7,500 SQ Q12h Admission and Anticipated Discharge Date Admission Date: November 07, 2020 Subjective Had a good BM in the morning, even without the suppository. Feels there was a bit of cramping, but this was prior to his BM. Reports no fevers/chills, chest pain, shortness of breath, abdominal pain, nausea, or vomiting. Physical Exam Constitutional: WD/WN, vitals as above Eyes: EOM intact bilaterally; no conjunctival abnormality ENMT: external ear and nose normal, oropharynx normal Neck: trachea midline, no thyromegaly normal visual inspection Respiratory: normal respiratory effort, lungs clear to auscultation no respiratory distress Cardiovascular: RRR, no murmur, no edema Gastrointestinal (Abdomen): Inspection/Auscultation: abdomen not distended Percussion/Palpation: abdomen soft; abdomen nontender, no guarding and abdomen not rigid Musculoskeletal: no cyanosis or clubbing, extremities motor strength 5/5 Head/Neck/Chest: normocephalic Extremities: + abnormal strength Skin: no rashes, warm and dry Neurologic: moves all extremities and awake Psychiatric: Orientation: alert, oriented to person and cooperative PG Care Time/CCT Total # of Minutes Spent Total Time Spent with Patient: Total time spent is greater than 50% in coordination of care (as documented) at patient's floor/unit and/or counseling patient: Coding Level of Care Code 42111 Subseq Hosp Care Lvl 2 Diagnoses Abdominal distention R14.0 Hypotension I95.9 Ileus K56.7 HTN (hypertension) I10 HLD (hyperlipidemia) E78.5 Quadriplegia G82.50 Diabetes E11.9 Sacral wound S31.000A Suprapubic catheter Z93.59 Anemia D64.9 Pemphigoid L12.9 DVT prophylaxis Z29.9
== END 2020-11-14 11:15 | disposition home health service (06) ==
LOC: ED 06:47 → 2S 06:47 → SUATTDRO 11:37 → 2S 12:13 → SUATTDRO 11-07 11:57 → 3W 11-10 15:14

== ENCOUNTER 2021-01-20 23:55 | Inpatient (IN) ==
[2021-01-21] MEDS ORDERED: HYDROmorphone INJ 0.5 MG/0.5 ML SYR IV STA (00:30)
[2021-01-21] MEDS ORDERED: diphenhydrAMINE 50 MG/ML VIAL IV STA (00:30)
[2021-01-21] MEDS ORDERED: ONDANSETRON INJ 2 MG/ML 2 ML VIAL IV STA (00:30)
[2021-01-21] MEDS ORDERED: SODIUM CHLORIDE 0.9% 1000ML 1,000 ML IV ONE (00:31)
[2021-01-21 00:44] LABS: Appearance Urine Clear (Clear); Bacteria Urine Automated Negative (Negative); Basophils # (auto) 0.02 K/uL (0-0.2); Basophils % (auto) 0.2 %; Bilirubin Urine Negative (Negative); Blood Urine Trace (Negative); Color Urine Yellow; Eosinophils # (auto) 0.21 K/uL (0-0.5); Eosinophils % (auto) 1.7 %; Epithelial Cell Urine Auto 20-30 /lpf (0-5); Glucose Urine UA Negative (Negative); Hematocrit (blood only) 36.6 % (42-52); Hemoglobin 12.4 g/dL (14.0-18.0); Immature Granulocytes # (auto) 0.04 K/uL (0.00-0.02); Immature Granulocytes % (auto) 0.3 %; Ketones Urine Negative (Negative); Leukocyte Esterase Urine 2+ (Negative); Lymphocytes # (auto) 1.73 K/uL (1.2-3.4); Lymphocytes % (auto) 14.2 %; Mean Corpuscular Hemoglobin 28.7 pg (25-34); Mean Corpuscular Hgb Conc 33.9 g/dL (32-36); Mean Corpuscular Volume 84.7 fL (80-100); Mean Platelet Volume 10.3 fL (7.4-10.4); Monocytes # (auto) 0.89 K/uL (0.11-0.59); Monocytes % (auto) 7.3 %; Neutrophils # (auto) 9.29 K/uL (1.4-6.5); Neutrophils % (auto) 76.3 %; Nitrite Urine Negative (Negative); Platelet Count 356 K/uL (130-400); Protein Urine Negative (Negative); RBC Urine Automated 0-4 /hpf (0-4); RDW Coefficient of Variation 15.5 % (11.5-14.5); RDW Standard Deviation 48.1 fL (36.4-46.3); Red Blood Count 4.32 M/uL (4.7-6.1); Specific Gravity Urine 1.007 (1.000-1.030); Urobilinogen Urine Negative (Negative); WBC Urine Automated >30 /hpf (0-5); White Blood Count 12.18 K/uL (4.8-10.8); pH Urine 6.5 (4.5-7.5)
[2021-01-21] MEDS ORDERED: PIPERACILLIN/TAZOBACTAM 4.5 GM/120 ML BAG IV ONE (00:57)
[2021-01-21] MEDS ORDERED: PIPERACILL/TAZOBAC CONSULT ACTIVE PRN ×2 (00:57→04:22)
[2021-01-21 00:58] LABS: Alanine Aminotransferase 23 U/L (12-78); Albumin Level 3.8 gm/dl (3.4-5.0); Aspartate Aminotransferase 10 U/L (15-37); BUN Creatinine Ratio 11.4 (10-20); Blood Urea Nitrogen 7 mg/dl (7-18); Calcium 8.9 mg/dl (8.5-10.1); Carbon Dioxide 21 mmol/L (21-32); Chloride 92 mmol/L (98-107); Est GFR (African American) 135.9 ml/min; Est GFR (Non-African American) 117.2 ml/min; Glucose 116 mg/dl (70-99); Potassium 3.6 mmol/L (3.5-5.1); Sodium 126 mmol/L (136-145)
[2021-01-21 01:01] LABS: Albumin Globulin Ratio 1.2 (0.9-2); Alkaline Phosphatase 64 U/L (45-117); Bilirubin,Total 0.9 mg/dl (0.2-1); Globulin 3.3 gm/dl (2.5-4.0); Total Protein 7.1 gm/dl (6.4-8.2)
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
--- NOTE | 2021-01-21 04:07 | Emergency Department Note ---
History of Present Illness General Chief complaint: Headache Stated complaint: HEADACHE/CATHETER PROBLEM Time Seen by Provider: 01/21/21 00:07 Source: patient and RN notes reviewed Mode of arrival: EMS Limitations: no limitations History of Present Illness Provider complaint: ADAME, suprapubic catheter problem Maximum Pain Intensity: 10 This patient is a 51-year-old male who presents emergency department with complaints of a headache and suprapubic catheter dysfunction. Patient is a quadriplegic who has a suprapubic catheter. His home health nurse change the catheter today and he does not believe it is draining properly. He complains of a headache the last several days and believes his symptoms are consistent with a UTI. He is currently being treated with Macrobid through his PCP. He denies any fevers but states he just does not feel right. He denies any vomiting or blood in the sims bag. Home Medications Medication Instructions Recorded Confirmed Type amlodipine 10 mg tablet 10 mg PO DAILY 05/11/18 01/21/21 History atorvastatin 20 mg tablet 20 mg PO HS 05/11/18 01/21/21 History baclofen 10 mg tablet 25 mg PO TID 05/11/18 01/21/21 History folic acid 1 mg tablet 1 mg PO DAILY 05/11/18 01/21/21 History metformin 500 mg tablet,extended 1,000 mg PO AMPM 05/11/18 01/21/21 History release 24 hr methotrexate sodium 2.5 mg tablet 15 mg PO WK 05/11/18 01/21/21 History oxybutynin chloride 5 mg tablet 5 mg PO TID 05/11/18 01/21/21 History prednisone 5 mg tablet 10 mg PO DAILY 05/11/18 01/21/21 History famotidine 40 mg tablet 40 mg PO DAILY 03/30/20 01/21/21 History glipizide 10 mg tablet, extended 10 mg PO QAM 10/26/20 01/21/21 History release 24 hr methenamine hippurate 1 gram tablet 1 g PO BID 11/05/20 01/21/21 History lisinopril 40 mg tablet 40 mg PO DAILY #30 tab 11/12/20 01/21/21 Rx clobetasol 0.05 % topical cream 1 applic TOPICAL BID PRN 01/21/21 01/21/21 History hydrochlorothiazide 12.5 mg capsule 12.5 mg PO QAM 01/21/21 01/21/21 History nitrofurantoin 100 mg PO BID 01/21/21 01/21/21 History monohydrate/macrocrystals 100 mg capsule Allergies Allergy/AdvReac Type Severity Reaction Status Date / Time Sulfa (Sulfonamide Allergy Severe Swelling Verified 01/21/21 00:39 Antibiotics) of Lip/Tongue/Throat Past Med/Surg History Medical History Bladder stone Diabetes HLD (hyperlipidemia) HTN (hypertension) Hypertension Ileus Nephrolithiasis Neurogenic bladder Osteomyelitis Pemphigoid Pemphigus foliaceus Sacral wound Suprapubic catheter Surgical History History of hip surgery History of suprapubic catheter Previous back surgery Family History Mother Cancer Father Diabetes Grandfather Diabetes Social History Smoking Status: Never smoker Second Hand Exposure: No; Hx Alcohol Use: No Hx Substance Use: No Preferred Language: Polish Communication Ability: Effective Schedule Checker Required: No Beliefs That Will Affect Care: None marital status: Single Current Living Situation Comment: Typically lives alone with daily care provider, nain Barker Feels Safe at Home: Yes during the past year weight has: decreased > 10 lbs Assistive Devices: None Review of Systems See HPI for pertinent positives & negatives. and A total of 10 systems reviewed and were otherwise negative Physical Exam Vital Signs Vital Signs - 24 hr 01/21/21 00:02 01/21/21 00:19 Temperature 37.2 C Temperature Source Oral Pulse Rate 116 H 93 H Pulse Rate from SpO2 Sensor 116 H Pulse Rhythm Regular Pulse Strength Normal Respiratory Rate 18 18 Respiratory Effort / Characteristics Non-Labored Respiratory Depth Normal Blood Pressure 165/90 H 165/90 H Blood Pressure Mean 115 115 Pulse Oximetry 98 99 Oxygen Delivery Method Room Air Room Air Sepsis Recent Fever Within 48 Hours No Sepsis New/Unexplained Change in Mental Status No Sepsis Action Taken by Nursing No Action Required Vital signs reviewed. General: Disabled 51 yo male, lying in bed, in no significant distress. HEENT: No scleral icterus, PERRLA, neck supple. Atraumatic. Cardiovascular: Regular rate and rhythm, no extra sounds. Pulmonary: Clear to auscultation bilaterally, normal work of breathing. Abdomen: Soft, obese, nontender, nondistended, positive bowel sounds. Supra pubic catheter Musculoskeletal: Atraumatic, no peripheral edema. Atrophy to all 4 extremities. Neurologic: Patient awake alert and oriented x 3 Skin: Warm, dry, excoriation noted surrounding the suprapubic catheter insertion site. Course Administered Medications Amlodipine Besylate (Amlodipine Besylate 5 Mg Tab) 10 mg PO DAILY [facility] Stop: 02/20/21 08:59 Last Admin: 01/25/21 08:36 Dose: 10 mg Documented by: [id number] Admin: 01/24/21 08:37 Dose: 10 mg Documented by: [id number] Admin: 01/23/21 08:26 Dose: 10 mg Documented by: [id number] Admin: 01/22/21 08:54 Dose: 10 mg Documented by: [id number] Admin: 01/21/21 08:43 Dose: 10 mg Documented by: [id number] Atorvastatin Calcium (Atorvastatin 20 Mg Tab) 20 mg PO HS [facility] Stop: 02/20/21 20:59 Last Admin: 01/25/21 21:13 Dose: 20 mg Documented by: [id number] Admin: 01/24/21 21:32 Dose: 20 mg Documented by: [id number] Admin: 01/23/21 20:58 Dose: 20 mg Documented by: [id number] Admin: 01/22/21 22:50 Dose: 20 mg Documented by: [id number] Admin: 01/21/21 20:23 Dose: 20 mg Documented by: [id number] Baclofen (Baclofen 10 Mg Tab) 25 mg PO TID [facility] Stop: 02/20/21 08:59 Last Admin: 01/25/21 21:13 Dose: 25 mg Documented by: [id number] Admin: 01/25/21 14:13 Dose: 25 mg Documented by: [id number] Admin: 01/25/21 08:40 Dose: 25 mg Documented by: [id number] Admin: 01/24/21 21:32 Dose: 25 mg Documented by: [id number] Admin: 01/24/21 14:27 Dose: 25 mg Documented by: [id number] Admin: 01/24/21 08:37 Dose: 25 mg Documented by: [id number] Admin: 01/23/21 20:58 Dose: 25 mg Documented by: [id number] Admin: 01/23/21 13:03 Dose: 25 mg Documented by: [id number] Admin: 01/23/21 08:26 Dose: 25 mg Documented by: [id number] Admin: 01/22/21 22:50 Dose: 25 mg Documented by: [id number] Admin: 01/22/21 14:23 Dose: 25 mg Documented by: [id number] Admin: 01/22/21 08:54 Dose: 25 mg Documented by: [id number] Admin: 01/21/21 20:22 Dose: 25 mg Documented by: [id number] Admin: 01/21/21 13:56 Dose: 25 mg Documented by: [id number] Admin: 01/21/21 08:43 Dose: 25 mg Documented by: [id number] Bisacodyl (Bisacodyl 10 Mg Supp) 20 mg VA Q2D@0900 [facility] Stop: 02/23/21 09:44 Last Admin: 01/24/21 11:34 Dose: 20 mg Documented by: [id number] Clobetasol Propionate (Clobetasol Propionate 0.05% Oint 15 Gm Tube) 1 appln EXT BID PRN PRN Reason: Skin irritation Stop: 02/24/21 17:24 Last Admin: 01/25/21 21:14 Dose: 1 appln Documented by: [id number] Famotidine (Famotidine 40 Mg Tablet) 40 mg PO DAILY [facility] Stop: 02/20/21 08:59 Last Admin: 01/25/21 08:37 Dose: 40 mg Documented by: [id number] Admin: 01/24/21 08:37 Dose: 40 mg Documented by: [id number] Admin: 01/23/21 08:26 Dose: 40 mg Documented by: [id number] Admin: 01/22/21 08:56 Dose: 40 mg Documented by: [id number] Admin: 01/21/21 08:44 Dose: 40 mg Documented by: [id number] Folic Acid (Folic Acid 1 Mg Tab) 1 mg PO DAILY [facility] Stop: 02/20/21 08:59 Last Admin: 01/25/21 08:37 Dose: 1 mg Documented by: [id number] Admin: 01/24/21 08:37 Dose: 1 mg Documented by: [id number] Admin: 01/23/21 08:26 Dose: 1 mg Documented by: [id number] Admin: 01/22/21 08:56 Dose: 1 mg Documented by: [id number] Admin: 01/21/21 08:44 Dose: 1 mg Documented by: [id number] Piperacillin Sod/Tazobactam (Sod 4.5 gm/ Dextrose) 120 mls @ 30 mls/hr IV Q8H [facility]; Protocol Stop: 01/31/21 05:59 Last Admin: 01/26/21 06:10 Dose: 30 mls/hr Documented by: [id number] Infusion: 01/26/21 01:52 Dose: 0 mls/hr Documented by: [id number] Admin: 01/25/21 21:16 Dose: 30 mls/hr Documented by: [id number] Infusion: 01/25/21 18:21 Dose: 0 mls/hr Documented by: [id number] Admin: 01/25/21 14:09 Dose: 30 mls/hr Documented by: [id number] Infusion: 01/25/21 10:07 Dose: 0 mls/hr Documented by: [id number] Admin: 01/25/21 05:43 Dose: 30 mls/hr Documented by: [id number] Infusion: 01/25/21 01:40 Dose: 0 mls/hr Documented by: [id number] Admin: 01/24/21 21:39 Dose: 30 mls/hr Documented by: [id number] Infusion: 01/24/21 18:27 Dose: 0 mls/hr Documented by: [id number] Admin: 01/24/21 14:27 Dose: 30 mls/hr Documented by: [id number] Infusion: 01/24/21 09:46 Dose: 0 mls/hr Documented by: [id number] Admin: 01/24/21 05:30 Dose: 30 mls/hr Documented by: [id number] Infusion: 01/24/21 01:12 Dose: 0 mls/hr Documented by: [id number] Admin: 01/23/21 20:58 Dose: 30 mls/hr Documented by: [id number] Infusion: 01/23/21 17:17 Dose: 0 mls/hr Documented by: [id number] Admin: 01/23/21 13:02 Dose: 30 mls/hr Documented by: [id number] Infusion: 01/23/21 10:21 Dose: 0 mls/hr Documented by: [id number] Admin: 01/23/21 05:42 Dose: 30 mls/hr Documented by: [id number] Infusion: 01/23/21 02:20 Dose: 0 mls/hr Documented by: [id number] Admin: 01/22/21 22:18 Dose: 30 mls/hr Documented by: [id number] Infusion: 01/22/21 18:25 Dose: 0 mls/hr Documented by: [id number] Admin: 01/22/21 14:24 Dose: 30 mls/hr Documented by: [id number] Infusion: 01/22/21 09:34 Dose: 0 mls/hr Documented by: [id number] Admin: 01/22/21 05:34 Dose: 30 mls/hr Documented by: [id number] Infusion: 01/22/21 01:55 Dose: 0 mls/hr Documented by: [id number] Admin: 01/21/21 21:52 Dose: 30 mls/hr Documented by: [id number] Infusion: 01/21/21 18:21 Dose: 0 mls/hr Documented by: [id number] Admin: 01/21/21 13:55 Dose: 30 mls/hr Documented by: [id number] Infusion: 01/21/21 10:40 Dose: 0 mls/hr Documented by: [id number] Admin: 01/21/21 06:37 Dose: 30 mls/hr Documented by: [id number] Insulin Aspart (Insulin Aspart 100 Units/Ml 3 Ml Pen) 0 units SC ACHS [facility] Stop: 02/20/21 07:29 Last Admin: 01/25/21 21:14 Dose: Not Given Documented by: [id number] Admin: 01/25/21 17:20 Dose: 3 units Documented by: [id number] Cosigned by: [id number] Admin: 01/25/21 12:48 Dose: 4 units Documented by: [id number] Cosigned by: [id number] Admin: 01/25/21 08:41 Dose: 3 units Documented by: [id number] Cosigned by: [id number] Admin: 01/24/21 21:34 Dose: 1 units Documented by: [id number] Cosigned by: [id number] Admin: 01/24/21 17:50 Dose: 4 units Documented by: [id number] Cosigned by: [id number] Admin: 01/24/21 12:17 Dose: 3 units Documented by: [id number] Cosigned by: [id number] Admin: 01/24/21 08:35 Dose: 3 units Documented by: [id number] Cosigned by: [id number] Admin: 01/23/21 20:55 Dose: 1 units Documented by: [id number] Cosigned by: [id number] Admin: 01/23/21 17:10 Dose: 4 units Documented by: [id number] Cosigned by: [id number] Admin: 01/23/21 12:20 Dose: 4 units Documented by: [id number] Cosigned by: [id number] Admin: 01/23/21 08:31 Dose: 2 units Documented by: [id number] Cosigned by: [id number] Admin: 01/22/21 22:00 Dose: Not Given Documented by: [id number] Cosigned by: [id number] Admin: 01/22/21 17:32 Dose: 3 units Documented by: [id number] Cosigned by: [id number] Admin: 01/22/21 12:28 Dose: 2 units Documented by: [id number] Cosigned by: [id number] Admin: 01/22/21 09:02 Dose: 3 units Documented by: [id number] Cosigned by: [id number] Admin: 01/21/21 20:23 Dose: Not Given Documented by: [id number] Admin: 01/21/21 17:24 Dose: 4 units Documented by: [id number] Cosigned by: [id number] Admin: 01/21/21 12:18 Dose: 4 units Documented by: [id number] Cosigned by: [id number] Admin: 01/21/21 08:42 Dose: 2 units Documented by: [id number] Cosigned by: [id number] Lisinopril (Lisinopril 40 Mg Tab) 40 mg PO DAILY [facility] Stop: 02/20/21 08:59 Last Admin: 01/25/21 08:37 Dose: 40 mg Documented by: [id number] Admin: 01/24/21 08:37 Dose: 40 mg Documented by: [id number] Admin: 01/23/21 08:26 Dose: 40 mg Documented by: [id number] Admin: 01/22/21 14:22 Dose: 40 mg Documented by: [id number] Admin: 01/21/21 08:43 Dose: 40 mg Documented by: [id number] Methotrexate (Methotrexate Sodium 2.5 Mg Tab) 15 mg PO Q7D [facility] Stop: 02/24/21 08:59 Last Admin: 01/25/21 08:39 Dose: 15 mg Documented by: [id number] Cosigned by: [id number] Oxybutynin Chloride (Oxybutynin Chloride 5 Mg Tab) 5 mg PO TID [facility] Stop: 02/20/21 08:59 Last Admin: 01/25/21 21:13 Dose: 5 mg Documented by: [id number] Admin: 01/25/21 14:12 Dose: 5 mg Documented by: [id number] Admin: 01/25/21 08:36 Dose: 5 mg Documented by: [id number] Admin: 01/24/21 21:34 Dose: 5 mg Documented by: [id number] Admin: 01/24/21 14:28 Dose: 5 mg Documented by: [id number] Admin: 01/24/21 08:37 Dose: 5 mg Documented by: [id number] Admin: 01/23/21 21:03 Dose: 5 mg Documented by: [id number] Admin: 01/23/21 13:03 Dose: 5 mg Documented by: [id number] Admin: 01/23/21 08:26 Dose: 5 mg Documented by: [id number] Admin: 01/22/21 22:50 Dose: 5 mg Documented by: [id number] Admin: 01/22/21 14:24 Dose: 5 mg Documented by: [id number] Admin: 01/22/21 08:56 Dose: 5 mg Documented by: [id number] Admin: 01/21/21 20:21 Dose: 5 mg Documented by: [id number] Admin: 01/21/21 13:56 Dose: 5 mg Documented by: [id number] Admin: 01/21/21 08:44 Dose: 5 mg Documented by: [id number] Prednisone (Prednisone 10 Mg Tablet) 10 mg PO DAILY [facility] Stop: 02/20/21 08:59 Last Admin: 01/25/21 08:36 Dose: 10 mg Documented by: [id number] Admin: 01/24/21 08:37 Dose: 10 mg Documented by: [id number] Admin: 01/23/21 08:26 Dose: 10 mg Documented by: [id number] Admin: 01/22/21 08:56 Dose: 10 mg Documented by: [id number] Admin: 01/21/21 08:44 Dose: 10 mg Documented by: [id number] Discontinued Medications Bisacodyl (Bisacodyl 10 Mg Supp) 20 mg VA NOW STA Stop: 01/22/21 09:16 Last Admin: 01/22/21 10:30 Dose: 20 mg Documented by: [id number] Bisacodyl (Bisacodyl 10 Mg Supp) 10 mg VA Q2D@0900 [facility] Stop: 02/23/21 08:59 Last Admin: 01/24/21 08:38 Dose: 10 mg Documented by: [id number] Diphenhydramine HCl (Diphenhydramine 50 Mg/Ml Vial) 25 mg IV NOW STA Stop: 01/21/21 00:31 Last Admin: 01/21/21 00:38 Dose: 25 mg Documented by: [id number] Hydromorphone HCl (Hydromorphone Inj 0.5 Mg/0.5 Ml Syr) 0.5 mg IV NOW STA Stop: 01/21/21 00:31 Last Admin: 01/21/21 00:41 Dose: 0.5 mg Documented by: [id number] Sodium Chloride (Nss 1000ml) 1,000 mls @ 999 mls/hr IV .Q1H1M ONE Stop: 01/21/21 01:31 Last Infusion: 01/21/21 04:32 Dose: 0 mls/hr Documented by: [id number] Admin: 01/21/21 00:40 Dose: 999 mls/hr Documented by: [id number] Piperacillin Sod/Tazobactam Sod (Zosyn) 4.5 gm in 120 mls @ 240 mls/hr IV NOW ONE Stop: 01/21/21 01:26 Last Infusion: 01/21/21 04:32 Dose: 0 mls/hr Documented by: [id number] Admin: 01/21/21 01:36 Dose: 240 mls/hr Documented by: [id number] Miscellaneous (*Clobetasol Cream*Order Awaiting Action) 1 ea N/A QS [facility] Stop: 02/20/21 07:59 Last Admin: 01/25/21 16:12 Dose: Not Given Documented by: [id number] Admin: 01/25/21 07:17 Dose: Not Given Documented by: [id number] Admin: 01/24/21 23:20 Dose: Not Given Documented by: [id number] Admin: 01/24/21 16:12 Dose: Not Given Documented by: [id number] Admin: 01/24/21 08:36 Dose: Not Given Documented by: [id number] Admin: 01/24/21 00:13 Dose: Not Given Documented by: [id number] Admin: 01/23/21 16:54 Dose: Not Given Documented by: [id number] Admin: 01/23/21 08:26 Dose: Not Given Documented by: [id number] Admin: 01/23/21 01:54 Dose: Not Given Documented by: [id number] Admin: 01/22/21 14:52 Dose: Not Given Documented by: [id number] Admin: 01/22/21 08:58 Dose: Not Given Documented by: [id number] Admin: 01/22/21 01:17 Dose: Not Given Documented by: [id number] Admin: 01/21/21 15:25 Dose: Not Given Documented by: [id number] Admin: 01/21/21 08:43 Dose: Not Given Documented by: [id number] Miscellaneous (Patient's Height And/Or Weight Needed) 1 ea N/A Q10M [facility] Stop: 02/20/21 05:16 Last Admin: 01/22/21 11:24 Dose: 1 ea Documented by: [id number] Admin: 01/21/21 05:25 Dose: 1 ea Documented by: [id number] Ondansetron HCl (Ondansetron Inj 2 Mg/Ml 2 Ml Vial) 4 mg IV NOW STA Stop: 01/21/21 00:31 Last Admin: 01/21/21 00:39 Dose: 4 mg Documented by: [id number] Medical Decision Making Differential Diagnosis Infection, dehydration, metabolic abnormality, hypo/hyperglycemia, electrolyte disturbance, anemia, hypoxia, cardiac sources, intracerebral event, toxicologic, neurologic, as well as other pathologies. Medical Records Attestation: I reviewed the patient's medical records. Home Medications Current Medication List: was personally reviewed by me Laboratory Data Attestation: I reviewed the patient's lab results. Result diagrams: 01/22/21 05:55 01/22/21 05:55 Lab Results 01/21/21 01/21/21 01/21/21 Range/Units 00:15 00:15 00:15 WBC 12.18 H (4.8-10.8) K/uL RBC 4.32 L (4.7-6.1) M/uL Hgb 12.4 L (14.0-18.0) g/dL Hct 36.6 L (42-52) % MCV 84.7 (80-100) fL MCH 28.7 (25-34) pg MCHC 33.9 (32-36) g/dL RDW Std Deviation 48.1 H (36.4-46.3) fL RDW Coeff of Sandor 15.5 H (11.5-14.5) % Plt Count 356 (130-400) K/uL MPV 10.3 (7.4-10.4) fL Immature Gran % (Auto) 0.3 % Neut % (Auto) 76.3 % Lymph % (Auto) 14.2 % [place] % (Auto) 7.3 % Eos % (Auto) 1.7 % Baso % (Auto) 0.2 % Neut # (Auto) 9.29 H (1.4-6.5) K/uL Lymph # (Auto) 1.73 (1.2-3.4) K/uL [place] # (Auto) 0.89 H (0.11-0.59) K/uL Eos # (Auto) 0.21 (0-0.5) K/uL Baso # (Auto) 0.02 (0-0.2) K/uL Immature Gran # (Auto) 0.04 H (0.00-0.02) K/uL Sodium 126 L (136-145) mmol/L Potassium 3.6 (3.5-5.1) mmol/L Chloride 92 L (98-107) mmol/L Carbon Dioxide 21 (21-32) mmol/L Anion Gap 13.0 H (3-11) BUN 7 (7-18) mg/dl Creatinine 0.59 L (0.6-1.4) mg/dl Est Cr Clr Drug Dosing Not Reportable Est GFR ( Amer) 135.9 ml/min Est GFR (Non-Af Amer) 117.2 ml/min BUN/Creatinine Ratio 11.4 (10-20) Glucose 116 H (70-99) mg/dl Osmolality (280-300) mOsm/kg Lactate (0.4-2.0) mmol/L Calcium 8.9 (8.5-10.1) mg/dl Total Bilirubin 0.9 (0.2-1) mg/dl AST 10 L (15-37) U/L ALT 23 (12-78) U/L Alkaline Phosphatase 64 (45-117) U/L Total Protein 7.1 (6.4-8.2) gm/dl Albumin 3.8 (3.4-5.0) gm/dl Globulin 3.3 (2.5-4.0) gm/dl Albumin/Globulin Ratio 1.2 (0.9-2) Urine Color Yellow Urine Appearance Clear (Clear) Urine pH 6.5 (4.5-7.5) Ur Specific [place] 1.007 (1.000-1.030) Urine Protein Negative (Negative) Urine Glucose (UA) Negative (Negative) Urine Ketones Negative (Negative) Urine Blood Trace H (Negative) Urine Nitrite Negative (Negative) Urine Bilirubin Negative (Negative) Urine Urobilinogen Negative (Negative) Ur Leukocyte Esterase 2+ H (Negative) Urine WBC (Auto) >30 H (0-5) /hpf Urine RBC (Auto) 0-4 (0-4) /hpf U Hyaline Cast (Auto) 1-5 (0-5) /lpf U Epithel Cells (Auto) 20-30 H (0-5) /lpf Urine Bacteria (Auto) Negative (Negative) COVID-19 Eval Order SARS-CoV-2 (PCR) (Negative) 01/21/21 01/21/21 01/21/21 Range/Units 00:15 00:47 00:47 WBC (4.8-10.8) K/uL RBC (4.7-6.1) M/uL Hgb (14.0-18.0) g/dL Hct (42-52) % MCV (80-100) fL MCH (25-34) pg MCHC (32-36) g/dL RDW Std Deviation (36.4-46.3) fL RDW Coeff of Sandor (11.5-14.5) % Plt Count (130-400) K/uL MPV (7.4-10.4) fL Immature Gran % (Auto) % Neut % (Auto) % Lymph % (Auto) % [place] % (Auto) % Eos % (Auto) % Baso % (Auto) % Neut # (Auto) (1.4-6.5) K/uL Lymph # (Auto) (1.2-3.4) K/uL [place] # (Auto) (0.11-0.59) K/uL Eos # (Auto) (0-0.5) K/uL Baso # (Auto) (0-0.2) K/uL Immature Gran # (Auto) (0.00-0.02) K/uL Sodium (136-145) mmol/L Potassium (3.5-5.1) mmol/L Chloride (98-107) mmol/L Carbon Dioxide (21-32) mmol/L Anion Gap (3-11) BUN (7-18) mg/dl Creatinine (0.6-1.4) mg/dl Est Cr Clr Drug Dosing Est GFR ( Amer) ml/min Est GFR (Non-Af Amer) ml/min BUN/Creatinine Ratio (10-20) Glucose (70-99) mg/dl Osmolality 256 L (280-300) mOsm/kg Lactate (0.4-2.0) mmol/L Calcium (8.5-10.1) mg/dl Total Bilirubin (0.2-1) mg/dl AST (15-37) U/L ALT (12-78) U/L Alkaline Phosphatase (45-117) U/L Total Protein (6.4-8.2) gm/dl Albumin (3.4-5.0) gm/dl Globulin (2.5-4.0) gm/dl Albumin/Globulin Ratio (0.9-2) Urine Color Urine Appearance (Clear) Urine pH (4.5-7.5) Ur Specific [place] (1.000-1.030) Urine Protein (Negative) Urine Glucose (UA) (Negative) Urine Ketones (Negative) Urine Blood (Negative) Urine Nitrite (Negative) Urine Bilirubin (Negative) Urine Urobilinogen (Negative) Ur Leukocyte Esterase (Negative) Urine WBC (Auto) (0-5) /hpf Urine RBC (Auto) (0-4) /hpf U Hyaline Cast (Auto) (0-5) /lpf U Epithel Cells (Auto) (0-5) /lpf Urine Bacteria (Auto) (Negative) COVID-19 Eval Order Covid19 at [facility] SARS-CoV-2 (PCR) NEGATIVE (Negative) 01/21/21 Range/Units 01:23 WBC (4.8-10.8) K/uL RBC (4.7-6.1) M/uL Hgb (14.0-18.0) g/dL Hct (42-52) % MCV (80-100) fL MCH (25-34) pg MCHC (32-36) g/dL RDW Std Deviation (36.4-46.3) fL RDW Coeff of Sandor (11.5-14.5) % Plt Count (130-400) K/uL MPV (7.4-10.4) fL Immature Gran % (Auto) % Neut % (Auto) % Lymph % (Auto) % [place] % (Auto) % Eos % (Auto) % Baso % (Auto) % Neut # (Auto) (1.4-6.5) K/uL Lymph # (Auto) (1.2-3.4) K/uL [place] # (Auto) (0.11-0.59) K/uL Eos # (Auto) (0-0.5) K/uL Baso # (Auto) (0-0.2) K/uL Immature Gran # (Auto) (0.00-0.02) K/uL Sodium (136-145) mmol/L Potassium (3.5-5.1) mmol/L Chloride (98-107) mmol/L Carbon Dioxide (21-32) mmol/L Anion Gap (3-11) BUN (7-18) mg/dl Creatinine (0.6-1.4) mg/dl Est Cr Clr Drug Dosing Est GFR ( Amer) ml/min Est GFR (Non-Af Amer) ml/min BUN/Creatinine Ratio (10-20) Glucose (70-99) mg/dl Osmolality (280-300) mOsm/kg Lactate 2.9 H* (0.4-2.0) mmol/L Calcium (8.5-10.1) mg/dl Total Bilirubin (0.2-1) mg/dl AST (15-37) U/L ALT (12-78) U/L Alkaline Phosphatase (45-117) U/L Total Protein (6.4-8.2) gm/dl Albumin (3.4-5.0) gm/dl Globulin (2.5-4.0) gm/dl Albumin/Globulin Ratio (0.9-2) Urine Color Urine Appearance (Clear) Urine pH (4.5-7.5) Ur Specific [place] (1.000-1.030) Urine Protein (Negative) Urine Glucose (UA) (Negative) Urine Ketones (Negative) Urine Blood (Negative) Urine Nitrite (Negative) Urine Bilirubin (Negative) Urine Urobilinogen (Negative) Ur Leukocyte Esterase (Negative) Urine WBC (Auto) (0-5) /hpf Urine RBC (Auto) (0-4) /hpf U Hyaline Cast (Auto) (0-5) /lpf U Epithel Cells (Auto) (0-5) /lpf Urine Bacteria (Auto) (Negative) COVID-19 Eval Order SARS-CoV-2 (PCR) (Negative) Imaging Data Radiologist's Impression: Head CT 01/21/21 00:30 CT OF THE HEAD WITHOUT CONTRAST CLINICAL HISTORY: Headache. COMPARISON STUDY: No previous studies for comparison. CT DOSE: 767.83 mGy.cm TECHNIQUE: Helical axial images of the head were obtained without IV contrast. Automated exposure control was utilized for the study. A dose lowering technique was utilized adhering to the principles of ALARA. FINDINGS: No acute intracranial hemorrhage, midline shift or mass effect is pre sent. The ventricular system is unremarkable. The basal cisterns are patent. No extra-axial collections are present. There are no findings to suggest acute dural sinus thrombosis or acute territorial infarct. No significant calvarial abnormalities are present. Right maxillary sinus is largely opacified. IMPRESSION: 1. No acute intracranial findings. 2. Largely opacified right maxillary sinus. ACT 112: Negative or not required by law. Electronically signed by: Mingo Ko M.D. 01/21/2021 7:16 AM Blood Pressure Blood Pressure Findings: Elevated blood pressure Blood Pressure Disposition: elevated BP felt to be situational MDM Narrative This patient was evaluated and appeared to be in no significant distress. IV access was obtained and laboratory work was drawn. An order for cardiac monitoring was placed and patient is noted to be in a sinus rhythm at 93 bpm. IV fluids were initiated. Patient was medicated with IV Dilaudid, Zofran and Benadryl. CT imaging of the head was performed and reveals no evidence of acute intracranial abnormality. An opacified right maxillary sinus is noted. Patient's laboratory work reveals a mild leukocytosis. Lactate is 2.9 and sodium of 126. Urinalysis is concerning for infection however it may also be colonization. Patient is currently taking Macrobid which may alter the culture. Blood cultures have been ordered. Patient was given Zosyn 4.5 g IV. He was feeling much improved after the above medications. Patient will be evaluated by the hospitalist service for further management. Patient is aware of the plan and agrees. Impression & Plan UTI (urinary tract infection) due to urinary indwelling catheter, Quadriplegia, Headache, Lactic acidosis, Hyponatremia Discharge Plan Visit Data Chief Complaint: Headache Stated Complaint: HEADACHE/CATHETER PROBLEM ED Provider: Tammie Breen Discharge Problem: UTI (urinary tract infection) due to urinary indwelling catheter, Quadriplegia, Headache, Lactic acidosis, Hyponatremia Patient Disposition: Admitted As Inpatient
[2021-01-21] MEDS ORDERED: GLUCAGON FOR INJ 1 MG VIAL SQ PRN (04:22)
[2021-01-21] MEDS ORDERED: DEXTROSE 50% 50 ML SYRINGE IV PRN (04:22)
[2021-01-21] MEDS ORDERED: CARBOHYDRATES FOR HYPOGLYCEMIA PO PRN (04:22)
[2021-01-21] MEDS ORDERED: GLUCOSE 40% GEL 15 GM TUBE PO PRN (04:22)
[2021-01-21] MEDS ORDERED: GLUCOSE 10 TABS/TUBE PO PRN (04:22)
[2021-01-21] MEDS: PATIENT'S HEIGHT AND/OR WEIGHT NEEDED SCH (05:25)
[2021-01-21] MEDS: PIPERACILLIN/TAZOBACTAM 4.5 GM in DEXTROSE 5% 100 ML IV SCH ×3 (06:37→21:52)
--- NOTE | 2021-01-21 07:17 | CT Scan Report ---
CT OF THE HEAD WITHOUT CONTRAST CLINICAL HISTORY: Headache. COMPARISON STUDY: No previous studies for comparison. CT DOSE: 767.83 mGy.cm TECHNIQUE: Helical axial images of the head were obtained without IV contrast. Automated exposure con trol was utilized for the study. A dose lowering technique was utilized adhering to the principles o f ALARA. FINDINGS: No acute intracranial hemorrhage, midline shift or mass effect is present. The ventricular system is unremarkable. The basal cisterns are patent. No extra-axial collections are present. There are no findings to suggest acute dural sinus thrombosis or acute territorial infarct. No significant calvarial abnormalities are present. Right maxillary sinus is largely opacified. IMPRESSION: 1. No acute intracranial findings. 2. Largely opacified right maxillary sinus. ACT 112: Negative or not required by law. Electronically signed by: Mingo Ko M.D. 01/21/2021 7:16 AM
[2021-01-21] MEDS: INSULIN ASPART 100 UNITS/ML 3 ML PEN SC SCH ×4 (08:42→20:23)
[2021-01-21] MEDS: BACLOFEN 10 MG TAB PO SCH ×3 (08:43→20:22)
[2021-01-21] MEDS: amLODIPine BESYLATE 5 MG TAB PO SCH (08:43)
[2021-01-21] MEDS: lisinopril 40 MG TAB PO SCH (08:43)
[2021-01-21] MEDS: OXYBUTYNIN CHLORIDE 5 MG TAB PO SCH ×3 (08:44→20:21)
[2021-01-21] MEDS: FAMOTIDINE 40 MG TABLET PO SCH (08:44)
[2021-01-21] MEDS: FOLIC ACID 1 MG TAB PO SCH (08:44)
[2021-01-21] MEDS: predniSONE 10 MG TABLET PO SCH (08:44)
[2021-01-21 18:09] LABS: BUN Creatinine Ratio 10.8 (10-20); Calcium 8.6 mg/dl (8.5-10.1); Creatinine Clr Calc Pharmacy 130.4 ml/min; Est GFR (African American) 118.1 ml/min; Est GFR (Non-African American) 101.9 ml/min; Potassium 4.3 mmol/L (3.5-5.1)
[2021-01-21] MEDS: ATORVASTATIN 20 MG TAB PO SCH (20:23)
[2021-01-22] MEDS: PIPERACILLIN/TAZOBACTAM 4.5 GM in DEXTROSE 5% 100 ML IV SCH ×3 (05:34→22:18)
[2021-01-22 06:30] LABS: Basophils # (auto) 0.03 K/uL (0-0.2); Basophils % (auto) 0.3 %; Eosinophils # (auto) 0.63 K/uL (0-0.5); Eosinophils % (auto) 6.4 %; Hematocrit (blood only) 35.7 % (42-52); Hemoglobin 11.8 g/dL (14.0-18.0); Immature Granulocytes # (auto) 0.02 K/uL (0.00-0.02); Immature Granulocytes % (auto) 0.2 %; Lymphocytes # (auto) 1.01 K/uL (1.2-3.4); Lymphocytes % (auto) 10.3 %; Mean Corpuscular Hemoglobin 29.1 pg (25-34); Mean Corpuscular Hgb Conc 33.1 g/dL (32-36); Mean Corpuscular Volume 88.1 fL (80-100); Mean Platelet Volume 10.6 fL (7.4-10.4); Monocytes # (auto) 0.71 K/uL (0.11-0.59); Monocytes % (auto) 7.2 %; Neutrophils # (auto) 7.41 K/uL (1.4-6.5); Neutrophils % (auto) 75.6 %; Platelet Count 315 K/uL (130-400); RDW Coefficient of Variation 15.8 % (11.5-14.5); RDW Standard Deviation 50.8 fL (36.4-46.3); Red Blood Count 4.05 M/uL (4.7-6.1); White Blood Count 9.81 K/uL (4.8-10.8)
[2021-01-22 07:04] LABS: BUN Creatinine Ratio 17.3 (10-20); Blood Urea Nitrogen 7 mg/dl (7-18); Calcium 8.9 mg/dl (8.5-10.1); Carbon Dioxide 28 mmol/L (21-32); Chloride 99 mmol/L (98-107); Creatinine Clr Calc Pharmacy 277.3 ml/min; Est GFR (African American) > 150.0 ml/min; Glucose 111 mg/dl (70-99); Potassium 3.7 mmol/L (3.5-5.1); Sodium 132 mmol/L (136-145)
[2021-01-22] MEDS: amLODIPine BESYLATE 5 MG TAB PO SCH (08:54)
[2021-01-22] MEDS: BACLOFEN 10 MG TAB PO SCH ×3 (08:54→22:50)
[2021-01-22] MEDS: FOLIC ACID 1 MG TAB PO SCH (08:56)
[2021-01-22] MEDS: FAMOTIDINE 40 MG TABLET PO SCH (08:56)
[2021-01-22] MEDS: predniSONE 10 MG TABLET PO SCH (08:56)
[2021-01-22] MEDS: OXYBUTYNIN CHLORIDE 5 MG TAB PO SCH ×3 (08:56→22:50)
[2021-01-22] MEDS: INSULIN ASPART 100 UNITS/ML 3 ML PEN SC SCH ×4 (09:02→22:00)
[2021-01-22] MEDS ORDERED: bisacodyL 10 MG SUPP PR STA (09:15)
--- NOTE | 2021-01-22 09:41 | Hospitalist Progress Note ---
Date of Service January 22, 2021 Assessment & Plan (1) Acute hyponatremia: Plan: Qf=648 in ER. Sodium now 132 Most recently 140 in October 2020. Patient recently started on HCTZ which is most likely contributing. He appears euvolemic. Received 1L NSS in ER -Hold HCTZ -Repeat chemistry - cautious correction to avoid osmotic demyelination syndrome (2) Acute UTI: Plan: Urinary catheter-associated UTI Urine culture from 01/16 with ESBL E. coli as well as Pseudomonas. Suprapubic catheter changed today -Zosyn -Follow cultures will likely need to be discharged to SNF due to frequency of his antibiotics. (3) HTN (hypertension): Plan: Borderline hypotensive at present -Continue Amlodipine with caution -Continue Lisinopril with caution -Holding HCTZ due to hyponatremia as above (4) Pemphigus foliaceus: Plan: Chronic -Continue Prednisone -Continue MTX -Continue Clobetasol (5) HLD (hyperlipidemia): Plan: Chronic -Continue Atorvastatin (6) Diabetes: Plan: Chronic. TEA=964 -Hold Metformin and Glipizide -Lantus with ISS, goal blood sugar 100 - 140 (7) Quadriplegia: Plan: Baseline -Turn q 2 hours -Suprapubic catheter management -Continue Baclofen 25mg po TID -Continue Oxybutynin TID Admission and Anticipated Discharge Date Admission Date: January 21, 2021 Subjective Patient reports no new symptoms Review of Systems Review of Systems: All systems reviewed & are unremarkable except as noted in HPI & below Physical Exam Physical Exam: General: obese male patient, C6 incomplete quadriplegia, NAD Skin: warm, dry, intact, scattered light brown papules and salmon colored patches consistent with pemphigus foliaceus diagnosis HEENT: NC/AT, PERRL, EOMI, anicteric sclera, conjunctiva without injection, external ear normal to inspection and nontender, nares patent, moist mucus membranes, dentition intact, no oropharyngeal lesions, neck supple, trachea midline, no LAD, no thyromegaly, no JVD Heart: +S1/S2, regular, no m/r/g Lungs: equal air entry bilaterally, no rales/rhonchi/wheezes Abd: +BS, soft, NT/ND, no masses/organomegaly/ascites, suprapubic catheter in place Ext: warm, 2+ pulses in UE/LE bilaterally, no clubbing/cyanosis or edema Neuro: AA&O, incomplete quadriplegia Results & Data Results & Data ([facility]) Vital Signs (Past 12 Hours) Vital Signs Temp Pulse Pulse Resp BP Pulse Ox 01/22/21 07:25 60 01/22/21 07:11 36.5 C 63 20 109/69 96 01/22/21 03:18 36.4 C L 71 18 108/65 96 01/22/21 00:03 65 01/21/21 22:33 36.9 C 65 20 120/80 96 PG Care Time/CCT Total # of Minutes Spent Total Time Spent with Patient: Total time spent is greater than 50% in coordination of care (as documented) at patient's floor/unit and/or counseling patient: Coding Level of Care Code 59775 Subseq Hosp Care Lvl 2 Diagnoses Acute hyponatremia E87.1 Acute UTI N39.0 HTN (hypertension) I10 Pemphigus foliaceus L10.2 HLD (hyperlipidemia) E78.5 Diabetes E11.9 Quadriplegia G82.50 Time Spent (min) 25
[2021-01-22] MEDS: PATIENT'S HEIGHT AND/OR WEIGHT NEEDED SCH (11:24)
[2021-01-22] MEDS: lisinopril 40 MG TAB PO SCH (14:22)
[2021-01-22] MEDS: ATORVASTATIN 20 MG TAB PO SCH (22:50)
[2021-01-23] MEDS: PIPERACILLIN/TAZOBACTAM 4.5 GM in DEXTROSE 5% 100 ML IV SCH ×3 (05:42→20:58)
[2021-01-23] MEDS: BACLOFEN 10 MG TAB PO SCH ×3 (08:26→20:58)
[2021-01-23] MEDS: lisinopril 40 MG TAB PO SCH (08:26)
[2021-01-23] MEDS: OXYBUTYNIN CHLORIDE 5 MG TAB PO SCH ×3 (08:26→21:03)
[2021-01-23] MEDS: predniSONE 10 MG TABLET PO SCH (08:26)
[2021-01-23] MEDS: amLODIPine BESYLATE 5 MG TAB PO SCH (08:26)
[2021-01-23] MEDS: FOLIC ACID 1 MG TAB PO SCH (08:26)
[2021-01-23] MEDS: FAMOTIDINE 40 MG TABLET PO SCH (08:26)
[2021-01-23] MEDS: INSULIN ASPART 100 UNITS/ML 3 ML PEN SC SCH ×4 (08:31→20:55)
[2021-01-23] MEDS: ATORVASTATIN 20 MG TAB PO SCH (20:58)
--- NOTE | 2021-01-23 21:47 | Hospitalist Progress Note ---
Date of Service January 23, 2021 Assessment & Plan (1) Acute hyponatremia: Plan: Aj=397 in ER. Sodium now 132 Most recently 140 in October 2020. Patient recently started on HCTZ which is most likely contributing. He appears euvolemic. Received 1L NSS in ER -Hold HCTZ -Repeat chemistry - cautious correction to avoid osmotic demyelination syndrome (2) Acute UTI: Plan: Urinary catheter-associated UTI Urine culture from 01/16 with ESBL E. coli as well as Pseudomonas. Suprapubic catheter changed today -Becky will likely need to be discharged to SNF due to frequency of his antibiotics. (3) HTN (hypertension): Plan: Borderline hypotensive at present -Continue Amlodipine with caution -Continue Lisinopril with caution -Holding HCTZ due to hyponatremia as above (4) Pemphigus foliaceus: Plan: Chronic -Continue Prednisone -Continue MTX -Continue Clobetasol (5) HLD (hyperlipidemia): Plan: Chronic -Continue Atorvastatin (6) Diabetes: Plan: Chronic. DOL=764 -Hold Metformin and Glipizide -Lantus with ISS, goal blood sugar 100 - 140 (7) Quadriplegia: Plan: Baseline -Turn q 2 hours -Suprapubic catheter management -Continue Baclofen 25mg po TID -Continue Oxybutynin TID Admission and Anticipated Discharge Date Admission Date: January 21, 2021 Subjective Patient reports doing well. He has no new complaints. Review of Systems Review of Systems: All systems reviewed & are unremarkable except as noted in HPI & below Physical Exam Physical Exam: General: obese male patient, C6 incomplete quadriplegia, NAD Skin: warm, dry, intact, scattered light brown papules and salmon colored patches consistent with pemphigus foliaceus diagnosis HEENT: NC/AT, PERRL, EOMI, anicteric sclera, conjunctiva without injection, external ear normal to inspection and nontender, nares patent, moist mucus membranes, dentition intact, no oropharyngeal lesions, neck supple, trachea midline, no LAD, no thyromegaly, no JVD Heart: +S1/S2, regular, no m/r/g Lungs: equal air entry bilaterally, no rales/rhonchi/wheezes Abd: +BS, soft, NT/ND, no masses/organomegaly/ascites, suprapubic catheter in place Ext: warm, 2+ pulses in UE/LE bilaterally, no clubbing/cyanosis or edema Neuro: AA&O, incomplete quadriplegia Results & Data Results & Data ([facility]) Vital Signs (Past 12 Hours) Vital Signs Temp Pulse Pulse Resp BP Pulse Ox 01/23/21 18:55 36.5 C 58 L 20 123/70 97 01/23/21 16:00 47 L 01/23/21 15:25 36.6 C 69 18 109/65 97 01/23/21 11:02 36.6 C 65 18 150/78 H 98 PG Care Time/CCT Total # of Minutes Spent Total Time Spent with Patient: Total time spent is greater than 50% in coordination of care (as documented) at patient's floor/unit and/or counseling patient: Coding Level of Care Code 44337 Subseq Hosp Care Lvl 2 Diagnoses Acute hyponatremia E87.1 Acute UTI N39.0 HTN (hypertension) I10 Pemphigus foliaceus L10.2 HLD (hyperlipidemia) E78.5 Diabetes E11.9 Quadriplegia G82.50 Time Spent (min) 25
[2021-01-24] MEDS: PIPERACILLIN/TAZOBACTAM 4.5 GM in DEXTROSE 5% 100 ML IV SCH ×3 (05:30→21:39)
[2021-01-24] MEDS: INSULIN ASPART 100 UNITS/ML 3 ML PEN SC SCH ×4 (08:35→21:34)
[2021-01-24] MEDS: FAMOTIDINE 40 MG TABLET PO SCH (08:37)
[2021-01-24] MEDS: FOLIC ACID 1 MG TAB PO SCH (08:37)
[2021-01-24] MEDS: lisinopril 40 MG TAB PO SCH (08:37)
[2021-01-24] MEDS: OXYBUTYNIN CHLORIDE 5 MG TAB PO SCH ×3 (08:37→21:34)
[2021-01-24] MEDS: predniSONE 10 MG TABLET PO SCH (08:37)
[2021-01-24] MEDS: amLODIPine BESYLATE 5 MG TAB PO SCH (08:37)
[2021-01-24] MEDS: BACLOFEN 10 MG TAB PO SCH ×3 (08:37→21:32)
[2021-01-24] MEDS ORDERED: bisacodyL 10 MG SUPP PR SCH (09:00)
[2021-01-24] MEDS: bisacodyL 10 MG SUPP PR SCH (11:34)
[2021-01-24] MEDS: ATORVASTATIN 20 MG TAB PO SCH (21:32)
--- NOTE | 2021-01-24 21:41 | Hospitalist Progress Note ---
Date of Service January 24, 2021 Assessment & Plan (1) Acute hyponatremia: Plan: Uc=895 in ER. Sodium now 132 Most recently 140 in October 2020. Patient recently started on HCTZ which is most likely contributing. He appears euvolemic. Received 1L NSS in ER -Hold HCTZ -Repeat chemistry - cautious correction to avoid osmotic demyelination syndrome waiting for placement need to complete about 7-10 days. (2) Acute UTI: Plan: Urinary catheter-associated UTI Urine culture from 01/16 with ESBL E. coli as well as Pseudomonas. Suprapubic catheter changed today -Becky will likely need to be discharged to SNF due to frequency of his antibiotics. (3) HTN (hypertension): Plan: Borderline hypotensive at present -Continue Amlodipine with caution -Continue Lisinopril with caution -Holding HCTZ due to hyponatremia as above (4) Pemphigus foliaceus: Plan: Chronic -Continue Prednisone -Continue MTX -Continue Clobetasol (5) HLD (hyperlipidemia): Plan: Chronic -Continue Atorvastatin (6) Diabetes: Plan: Chronic. INF=890 -Hold Metformin and Glipizide -Lantus with ISS, goal blood sugar 100 - 140 (7) Quadriplegia: Plan: Baseline -Turn q 2 hours -Suprapubic catheter management -Continue Baclofen 25mg po TID -Continue Oxybutynin TID Admission and Anticipated Discharge Date Admission Date: January 21, 2021 Subjective Patient reports doing well. Review of Systems Review of Systems: All systems reviewed & are unremarkable except as noted in HPI & below Physical Exam Physical Exam: General: obese male patient, C6 incomplete quadriplegia, NAD Skin: warm, dry, intact, scattered light brown papules and salmon colored patches consistent with pemphigus foliaceus diagnosis HEENT: NC/AT, PERRL, EOMI, anicteric sclera, conjunctiva without injection, external ear normal to inspection and nontender, nares patent, moist mucus membranes, dentition intact, no oropharyngeal lesions, neck supple, trachea midline, no LAD, no thyromegaly, no JVD Heart: +S1/S2, regular, no m/r/g Lungs: equal air entry bilaterally, no rales/rhonchi/wheezes Abd: +BS, soft, NT/ND, no masses/organomegaly/ascites, suprapubic catheter in place Ext: warm, 2+ pulses in UE/LE bilaterally, no clubbing/cyanosis or edema Neuro: AA&O, incomplete quadriplegia Results & Data Results & Data ([facility]) Vital Signs (Past 12 Hours) Vital Signs Temp Pulse Pulse Resp BP Pulse Ox 01/24/21 15:31 36.5 C 66 20 123/76 96 01/24/21 12:00 36.7 C 70 19 116/77 96 01/24/21 11:52 53 L PG Care Time/CCT Total # of Minutes Spent Total Time Spent with Patient: Total time spent is greater than 50% in coordination of care (as documented) at patient's floor/unit and/or counseling patient: Coding Level of Care Code 99452 Subseq Hosp Care Lvl 2 Diagnoses Acute hyponatremia E87.1 Acute UTI N39.0 HTN (hypertension) I10 Pemphigus foliaceus L10.2 HLD (hyperlipidemia) E78.5 Diabetes E11.9 Quadriplegia G82.50 Time Spent (min) 25
[2021-01-25] MEDS: PIPERACILLIN/TAZOBACTAM 4.5 GM in DEXTROSE 5% 100 ML IV SCH ×3 (05:43→21:16)
[2021-01-25] MEDS: predniSONE 10 MG TABLET PO SCH (08:36)
[2021-01-25] MEDS: amLODIPine BESYLATE 5 MG TAB PO SCH (08:36)
[2021-01-25] MEDS: OXYBUTYNIN CHLORIDE 5 MG TAB PO SCH ×3 (08:36→21:13)
[2021-01-25] MEDS: FAMOTIDINE 40 MG TABLET PO SCH (08:37)
[2021-01-25] MEDS: FOLIC ACID 1 MG TAB PO SCH (08:37)
[2021-01-25] MEDS: lisinopril 40 MG TAB PO SCH (08:37)
[2021-01-25] MEDS: metHOTREXate sodium 2.5 MG TAB PO SCH (08:39)
[2021-01-25] MEDS: BACLOFEN 10 MG TAB PO SCH ×3 (08:40→21:13)
[2021-01-25] MEDS: INSULIN ASPART 100 UNITS/ML 3 ML PEN SC SCH ×4 (08:41→21:14)
[2021-01-25] MEDS ORDERED: MICONAZOLE NITRATE POWDER 43 GM EXT PRN (10:27)
--- NOTE | 2021-01-25 20:41 | Hospitalist Progress Note ---
Date of Service January 25, 2021 Assessment & Plan (1) Acute hyponatremia: Plan: Sc=677 in ER. Sodium now 132 Most recently 140 in October 2020. Patient recently started on HCTZ which is most likely contributing. He appears euvolemic. Received 1L NSS in ER -Hold HCTZ -Repeat chemistry - cautious correction to avoid osmotic demyelination syndrome waiting for placement need to complete about 7-10 days. Patient will liekly remain over the course of the weekend. (2) Acute UTI: Plan: Urinary catheter-associated UTI Urine culture from 01/16 with ESBL E. coli as well as Pseudomonas. Suprapubic catheter changed today -Zosyn will likely need to be discharged to SNF due to frequency of his antibiotics. (3) HTN (hypertension): Plan: Borderline hypotensive at present -Continue Amlodipine with caution -Continue Lisinopril with caution -Holding HCTZ due to hyponatremia as above (4) Pemphigus foliaceus: Plan: Chronic -Continue Prednisone -Continue MTX -Continue Clobetasol -called pharmacy as it was not active. (5) HLD (hyperlipidemia): Plan: Chronic -Continue Atorvastatin (6) Diabetes: Plan: Chronic. VBX=234 -Hold Metformin and Glipizide -Lantus with ISS, goal blood sugar 100 - 140 (7) Quadriplegia: Plan: Baseline -Turn q 2 hours -Suprapubic catheter management -Continue Baclofen 25mg po TID -Continue Oxybutynin TID Admission and Anticipated Discharge Date Admission Date: January 21, 2021 Subjective Patient reports no new symptoms except for falir of pemphigous. Review of Systems Review of Systems: All systems reviewed & are unremarkable except as noted in HPI & below Physical Exam Physical Exam: General: obese male patient, C6 incomplete quadriplegia, NAD Skin: warm, dry, intact, scattered light brown papules and salmon colored patches consistent with pemphigus foliaceus diagnosis HEENT: NC/AT, PERRL, EOMI, anicteric sclera, conjunctiva without injection, external ear normal to inspection and nontender, nares patent, moist mucus membranes, dentition intact, no oropharyngeal lesions, neck supple, trachea midline, no LAD, no thyromegaly, no JVD Heart: +S1/S2, regular, no m/r/g Lungs: equal air entry bilaterally, no rales/rhonchi/wheezes Abd: +BS, soft, NT/ND, no masses/organomegaly/ascites, suprapubic catheter in place Ext: warm, 2+ pulses in UE/LE bilaterally, no clubbing/cyanosis or edema Neuro: AA&O, incomplete quadriplegia Results & Data Results & Data ([facility]) Vital Signs (Past 12 Hours) Vital Signs Temp Pulse Resp BP BP Pulse Ox 01/25/21 19:36 36.8 C 62 18 148/85 H 97 01/25/21 15:39 36.6 C 70 20 132/81 98 01/25/21 11:51 36.5 C 56 L 20 144/75 H 96 PG Care Time/CCT Total # of Minutes Spent Total Time Spent with Patient: Total time spent is greater than 50% in coordination of care (as documented) at patient's floor/unit and/or counseling patient: Coding Level of Care Code 79805 Subseq Hosp Care Lvl 2 Diagnoses Acute hyponatremia E87.1 Acute UTI N39.0 HTN (hypertension) I10 Pemphigus foliaceus L10.2 HLD (hyperlipidemia) E78.5 Diabetes E11.9 Quadriplegia G82.50
[2021-01-25] MEDS: ATORVASTATIN 20 MG TAB PO SCH (21:13)
[2021-01-25] MEDS: CLOBETASOL PROPIONATE 0.05% OINT 15 GM TUBE EXT PRN (21:14)
[2021-01-26] MEDS: PIPERACILLIN/TAZOBACTAM 4.5 GM in DEXTROSE 5% 100 ML IV SCH ×3 (06:10→22:39)
[2021-01-26] MEDS: amLODIPine BESYLATE 5 MG TAB PO SCH (09:39)
[2021-01-26] MEDS: BACLOFEN 10 MG TAB PO SCH ×3 (09:40→20:21)
[2021-01-26] MEDS: FAMOTIDINE 40 MG TABLET PO SCH (09:41)
[2021-01-26] MEDS: FOLIC ACID 1 MG TAB PO SCH (09:42)
[2021-01-26] MEDS: OXYBUTYNIN CHLORIDE 5 MG TAB PO SCH ×3 (09:42→20:21)
[2021-01-26] MEDS: predniSONE 10 MG TABLET PO SCH (09:42)
[2021-01-26] MEDS: lisinopril 40 MG TAB PO SCH (09:42)
[2021-01-26] MEDS: bisacodyL 10 MG SUPP PR SCH (09:46)
[2021-01-26] MEDS: INSULIN ASPART 100 UNITS/ML 3 ML PEN SC SCH ×4 (10:20→21:20)
--- NOTE | 2021-01-26 14:38 | Hospitalist Progress Note ---
Date of Service January 26, 2021 Assessment & Plan (1) Acute hyponatremia: Plan: Qq=224 in ER. Sodium now 132 Most recently 140 in October 2020. Patient recently started on HCTZ which is most likely contributing. He appears euvolemic. Received 1L NSS in ER -Hold HCTZ -Repeat chemistry - cautious correction to avoid osmotic demyelination syndrome waiting for placement need to complete about 7-10 days. Patient will likely remain over the course of the weekend. (2) Acute UTI: Plan: Urinary catheter-associated UTI Urine culture from 01/16 with ESBL E. coli as well as Pseudomonas. Suprapubic catheter changed today -Zosyn will likely need to be discharged to SNF due to frequency of his antibiotics. (3) HTN (hypertension): Plan: Borderline hypotensive at present -Continue Amlodipine with caution -Continue Lisinopril with caution -Holding HCTZ due to hyponatremia as above (4) Pemphigus foliaceus: Plan: Chronic -Continue Prednisone -Continue MTX -Continue Clobetasol responding to clobetasol. will monitor . (5) HLD (hyperlipidemia): Plan: Chronic -Continue Atorvastatin (6) Diabetes: Plan: Chronic. LEZ=749 -Hold Metformin and Glipizide -Lantus with ISS, goal blood sugar 100 - 140 (7) Quadriplegia: Plan: Baseline -Turn q 2 hours -Suprapubic catheter management -Continue Baclofen 25mg po TID -Continue Oxybutynin TID Admission and Anticipated Discharge Date Admission Date: January 21, 2021 Subjective Patient reports no new symptoms. Review of Systems Review of Systems: All systems reviewed & are unremarkable except as noted in HPI & below Physical Exam Physical Exam: General: obese male patient, C6 incomplete quadriplegia, NAD Skin: warm, dry, intact, scattered light brown papules and salmon colored patches consistent with pemphigus foliaceus diagnosis HEENT: NC/AT, PERRL, EOMI, anicteric sclera, conjunctiva without injection, external ear normal to inspection and nontender, nares patent, moist mucus membranes, dentition intact, no oropharyngeal lesions, neck supple, trachea midline, no LAD, no thyromegaly, no JVD Heart: +S1/S2, regular, no m/r/g Lungs: equal air entry bilaterally, no rales/rhonchi/wheezes Abd: +BS, soft, NT/ND, no masses/organomegaly/ascites, suprapubic catheter in place Ext: warm, 2+ pulses in UE/LE bilaterally, no clubbing/cyanosis or edema Neuro: AA&O, incomplete quadriplegia Results & Data Results & Data ([facility]) Vital Signs (Past 12 Hours) Vital Signs Temp Pulse Resp BP Pulse Ox 01/26/21 07:00 36.5 C 72 20 136/73 99 PG Care Time/CCT Total # of Minutes Spent Total Time Spent with Patient: Total time spent is greater than 50% in coordination of care (as documented) at patient's floor/unit and/or counseling patient: Coding Level of Care Code 50633 Subseq Hosp Care Lvl 2 Diagnoses Acute hyponatremia E87.1 Acute UTI N39.0 HTN (hypertension) I10 Pemphigus foliaceus L10.2 HLD (hyperlipidemia) E78.5 Diabetes E11.9 Quadriplegia G82.50 Time Spent (min) 25
[2021-01-26] MEDS: ATORVASTATIN 20 MG TAB PO SCH (20:21)
[2021-01-27] MEDS: PIPERACILLIN/TAZOBACTAM 4.5 GM in DEXTROSE 5% 100 ML IV SCH ×3 (05:47→21:35)
[2021-01-27 06:14] LABS: Hematocrit (blood only) 35.2 % (42-52); Hemoglobin 11.4 g/dL (14.0-18.0); Mean Corpuscular Hemoglobin 28.4 pg (25-34); Mean Corpuscular Hgb Conc 32.4 g/dL (32-36); Mean Corpuscular Volume 87.6 fL (80-100); Mean Platelet Volume 10.4 fL (7.4-10.4); Platelet Count 327 K/uL (130-400); RDW Coefficient of Variation 15.8 % (11.5-14.5); RDW Standard Deviation 50.8 fL (36.4-46.3); Red Blood Count 4.02 M/uL (4.7-6.1); White Blood Count 9.44 K/uL (4.8-10.8)
[2021-01-27 06:47] LABS: BUN Creatinine Ratio 13.4 (10-20); Blood Urea Nitrogen 5 mg/dl (7-18); Calcium 8.8 mg/dl (8.5-10.1); Carbon Dioxide 25 mmol/L (21-32); Chloride 105 mmol/L (98-107); Creatinine Clr Calc Pharmacy 283.1 ml/min; Est GFR (African American) > 150.0 ml/min; Est GFR (Non-African American) 140.5 ml/min; Glucose 111 mg/dl (70-99); Potassium 3.2 mmol/L (3.5-5.1); Sodium 136 mmol/L (136-145)
[2021-01-27] MEDS: BACLOFEN 10 MG TAB PO SCH ×3 (08:27→21:25)
[2021-01-27] MEDS: amLODIPine BESYLATE 5 MG TAB PO SCH (08:27)
[2021-01-27] MEDS: lisinopril 40 MG TAB PO SCH (08:28)
[2021-01-27] MEDS: OXYBUTYNIN CHLORIDE 5 MG TAB PO SCH ×3 (08:28→21:34)
[2021-01-27] MEDS: FAMOTIDINE 40 MG TABLET PO SCH (08:28)
[2021-01-27] MEDS: FOLIC ACID 1 MG TAB PO SCH (08:28)
[2021-01-27] MEDS: predniSONE 10 MG TABLET PO SCH (08:29)
[2021-01-27] MEDS: INSULIN ASPART 100 UNITS/ML 3 ML PEN SC SCH ×4 (09:59→21:26)
[2021-01-27] MEDS: CLOBETASOL PROPIONATE 0.05% OINT 15 GM TUBE EXT PRN (17:43)
--- NOTE | 2021-01-27 20:57 | Hospitalist Progress Note ---
Date of Service January 27, 2021 Assessment & Plan (1) Acute hyponatremia: Plan: Xx=872 in ER. Sodium now 132 Most recently 140 in October 2020. Patient recently started on HCTZ which is most likely contributing. He appears euvolemic. Received 1L NSS in ER -Hold HCTZ -Repeat chemistry - cautious correction to avoid osmotic demyelination syndrome waiting for placement need to complete about 7-10 days of antibiotics, leaning towards 10. Patient will likely remain over the course of the weekend. exchanged sims on 01/27 (2) Acute UTI: Plan: Urinary catheter-associated UTI Urine culture from 01/16 with ESBL E. coli as well as Pseudomonas. Suprapubic catheter changed today -Zosyn will likely need to be discharged to SNF due to frequency of his antibiotics. (3) HTN (hypertension): Plan: Borderline hypotensive at present -Continue Amlodipine with caution -Continue Lisinopril with caution -Holding HCTZ due to hyponatremia as above (4) Pemphigus foliaceus: Plan: Chronic -Continue Prednisone -Continue MTX -Continue Clobetasol responding to clobetasol. will monitor . (5) HLD (hyperlipidemia): Plan: Chronic -Continue Atorvastatin (6) Diabetes: Plan: Chronic. FIV=064 -Hold Metformin and Glipizide -Lantus with ISS, goal blood sugar 100 - 140 (7) Quadriplegia: Plan: Baseline -Turn q 2 hours -Suprapubic catheter management -Continue Baclofen 25mg po TID -Continue Oxybutynin TID (8) Diarrhea: Plan: negative c diff Admission and Anticipated Discharge Date Admission Date: January 21, 2021 Subjective Patient reports having more diarrhea. Nurse feels decubitus ulcers are getting worse. Review of Systems 2 Review of Systems: All systems reviewed & are unremarkable except as noted in HPI & below Physical Exam Physical Exam: General: obese male patient, C6 incomplete quadriplegia, NAD Skin: warm, dry, intact, scattered light brown papules and salmon colored patches consistent with pemphigus foliaceus diagnosis HEENT: NC/AT, PERRL, EOMI, anicteric sclera, conjunctiva without injection, external ear normal to inspection and nontender, nares patent, moist mucus membranes, dentition intact, no oropharyngeal lesions, neck supple, trachea midline, no LAD, no thyromegaly, no JVD Heart: +S1/S2, regular, no m/r/g Lungs: equal air entry bilaterally, no rales/rhonchi/wheezes Abd: +BS, soft, NT/ND, no masses/organomegaly/ascites, suprapubic catheter in place Ext: warm, 2+ pulses in UE/LE bilaterally, no clubbing/cyanosis or edema Neuro: AA&O, incomplete quadriplegia Results & Data Results & Data ([facility]) Vital Signs (Past 12 Hours) Vital Signs Temp Pulse Resp BP Pulse Ox 01/27/21 15:04 36.8 C 86 18 161/89 H 98 PG Care Time/CCT Total # of Minutes Spent Total Time Spent with Patient: Total time spent is greater than 50% in coordination of care (as documented) at patient's floor/unit and/or counseling patient: Coding Level of Care Code 59164 Subseq Hosp Care Lvl 2 Diagnoses Acute hyponatremia E87.1 Acute UTI N39.0 HTN (hypertension) I10 Pemphigus foliaceus L10.2 HLD (hyperlipidemia) E78.5 Diabetes E11.9 Quadriplegia G82.50 Diarrhea R19.7 Diarrhea type: unspecified type (1) Diarrhea Diarrhea type: unspecified type Qualified Code(s): R19.7 - Diarrhea, unspecified
[2021-01-27] MEDS: ATORVASTATIN 20 MG TAB PO SCH (21:25)
[2021-01-27] MEDS: POTASSIUM CHLORIDE CRTAB 20 MEQ TABCR PO SCH (21:25)
[2021-01-28] MEDS: PIPERACILLIN/TAZOBACTAM 4.5 GM in DEXTROSE 5% 100 ML IV SCH ×3 (05:37→21:28)
[2021-01-28] MEDS: HEPARIN SOD 5,000 UNIT/0.5 ML VIAL SQ SCH ×3 (05:38→21:28)
[2021-01-28] MEDS: FOLIC ACID 1 MG TAB PO SCH (07:56)
[2021-01-28] MEDS: FAMOTIDINE 40 MG TABLET PO SCH (07:56)
[2021-01-28] MEDS: amLODIPine BESYLATE 5 MG TAB PO SCH (07:56)
[2021-01-28] MEDS: OXYBUTYNIN CHLORIDE 5 MG TAB PO SCH ×3 (07:56→21:28)
[2021-01-28] MEDS: BACLOFEN 10 MG TAB PO SCH ×3 (07:56→21:28)
[2021-01-28] MEDS: POTASSIUM CHLORIDE CRTAB 20 MEQ TABCR PO SCH ×3 (07:56→21:28)
[2021-01-28] MEDS: lisinopril 40 MG TAB PO SCH (07:56)
[2021-01-28] MEDS: predniSONE 10 MG TABLET PO SCH (07:57)
[2021-01-28] MEDS: INSULIN ASPART 100 UNITS/ML 3 ML PEN SC SCH ×4 (09:21→21:42)
[2021-01-28] MEDS: bisacodyL 10 MG SUPP PR SCH ×2 (10:04→10:20)
--- NOTE | 2021-01-28 14:39 | Hospitalist Progress Note ---
Date of Service January 28, 2021 Assessment & Plan (1) Acute hyponatremia: Plan: Ki=161 in ER. Sodium up > 130 Most recently 140 in October 2020. Patient recently started on HCTZ which is most likely contributing. He appears euvolemic. Received 1L NSS in ER -discontinue HCTZ need to complete 10 days of antibiotics dc to home on 01/30 in evening (2) Acute UTI: Plan: gets suprapubic cath exchanged weekly by home RN Urinary catheter-associated UTI Urine culture from 01/16 with ESBL E. coli as well as Pseudomonas. continue Zosyn through 01/30 (3) HTN (hypertension): Plan: BP elevated -Continue Amlodipine with caution -Continue Lisinopril with caution -Holding HCTZ due to hyponatremia as above (4) Pemphigus foliaceus: Plan: Chronic -Continue Prednisone -Continue MTX -Continue Clobetasol responding to clobetasol. will monitor . (5) HLD (hyperlipidemia): Plan: Chronic -Continue Atorvastatin (6) Diabetes: Plan: Chronic. TTM=057 -Hold Metformin and Glipizide -Lantus with ISS, goal blood sugar 100 - 140 (7) Quadriplegia: Plan: Baseline -Turn q 2 hours -Suprapubic catheter management -Continue Baclofen 25mg po TID -Continue Oxybutynin TID (8) Diarrhea: Plan: negative c diff Admission and Anticipated Discharge Date Admission Date: January 21, 2021 Subjective patient says he feels absolutely great, no issues at all eating well, no fever, no cough, no chest pain, no dyspnea reviewed chart, admitted 01/21 with Zosyn, today is day 8 of antibiotics originally planned for home health but can keep through 01/30 and discharge to home in afternoon/evening he agrees Review of Systems Review of Systems: All systems reviewed & are unremarkable except as noted in Subjective Physical Exam Constitutional: well developed, well nourished, + morbidly obese and comfortable; no acute distress Neck: trachea midline, no thyromegaly Respiratory: normal respiratory effort, lungs clear to auscultation Cardiovascular: RRR, no murmur, no edema Gastrointestinal (Abdomen): normal bowel sounds, soft, nontender, no hepatosplenomegaly Skin: + rash (lower legs) Psychiatric: A+Ox3, euthymic affect Results & Data Results & Data ([place]) Vital Signs (Past 12 Hours) Vital Signs Temp Pulse Resp BP Pulse Ox 01/28/21 09:53 140/82 01/28/21 07:04 36.7 C 69 16 175/92 H 97 Laboratory Results Laboratory Results - last 24 hr 01/27/21 01/27/21 01/27/21 17:04 20:46 Unknown POC Glucose 187 H 147 H Stl C. diff Tox B Gene Negative Cdiff Gene 01/28/21 01/28/21 08:08 12:15 POC Glucose 124 H 180 H Stl C. diff Tox B Gene Medications Administered Current Inpatient Medications Amlodipine Besylate (Amlodipine Besylate 5 Mg Tab) 10 mg PO DAILY [facility] Stop: 02/20/21 08:59 Last Admin: 01/28/21 07:56 Dose: 10 mg Documented by: Atorvastatin Calcium (Atorvastatin 20 Mg Tab) 20 mg PO HS [facility] Stop: 02/20/21 20:59 Last Admin: 01/27/21 21:25 Dose: 20 mg Documented by: Baclofen (Baclofen 10 Mg Tab) 25 mg PO TID [facility] Stop: 02/20/21 08:59 Last Admin: 01/28/21 13:21 Dose: 25 mg Documented by: Bisacodyl (Bisacodyl 10 Mg Supp) 20 mg [place] Q2D@0900 [facility] Stop: 02/23/21 09:44 Last Admin: 01/28/21 10:20 Dose: Not Given Documented by: Clobetasol Propionate (Clobetasol Propionate 0.05% Oint 15 Gm Tube) 1 appln EXT BID PRN PRN Reason: Skin irritation Stop: 02/24/21 17:24 Last Admin: 01/27/21 17:43 Dose: 1 appln Documented by: Dextrose (Dextrose 50% 50 Ml Syringe) 25 - 50 ml IV UD PRN; Protocol PRN Reason: Hypoglycemia Protocol Stop: 02/20/21 04:21 Famotidine (Famotidine 40 Mg Tablet) 40 mg PO DAILY [facility] Stop: 02/20/21 08:59 Last Admin: 01/28/21 07:56 Dose: 40 mg Documented by: Folic Acid (Folic Acid 1 Mg Tab) 1 mg PO DAILY [facility] Stop: 02/20/21 08:59 Last Admin: 01/28/21 07:56 Dose: 1 mg Documented by: Glucagon (Glucagon For Inj 1 Mg Vial) 1 mg SQ UD PRN; Protocol PRN Reason: Hypoglycemia Protocol Stop: 02/20/21 04:21 Glucose (Glucose 10 Tabs/Tube) 4 - 8 tabs PO UD PRN; Protocol PRN Reason: Hypoglycemia Protocol Stop: 02/20/21 04:21 Glucose (Glucose 40% Gel 15 Gm Tube) 15 - 30 gm PO UD PRN; Protocol PRN Reason: Hypoglycemia Protocol Stop: 02/20/21 04:21 Heparin Sodium (Porcine) (Heparin Sod 5,000 Unit/0.5 Ml Vial) 5,000 units SQ Q8 [facility] Stop: 02/27/21 05:59 Last Admin: 01/28/21 13:19 Dose: 5,000 units Documented by: Piperacillin Sod/Tazobactam (Sod 4.5 gm/ Dextrose) 120 mls @ 30 mls/hr IV Q8H [facility]; Protocol Stop: 01/31/21 05:59 Last Admin: 01/28/21 13:15 Dose: 30 mls/hr Documented by: Insulin Aspart (Insulin Aspart 100 Units/Ml 3 Ml Pen) 0 units SC ACHS [facility] Stop: 02/20/21 07:29 Last Admin: 01/28/21 12:44 Dose: 4 units Documented by: Lisinopril (Lisinopril 40 Mg Tab) 40 mg PO DAILY [facility] Stop: 02/20/21 08:59 Last Admin: 01/28/21 07:56 Dose: 40 mg Documented by: Methotrexate (Methotrexate Sodium 2.5 Mg Tab) 15 mg PO Q7D [facility] Stop: 02/24/21 08:59 Last Admin: 01/25/21 08:39 Dose: 15 mg Documented by: Miconazole Nitrate (Miconazole Nitrate Powder 43 Gm) 1 appln EXT PRN PRN PRN Reason: Affected Skin Folds Stop: 02/24/21 10:26 Last Admin: 01/27/21 17:44 Dose: 1 appln Documented by: Miscellaneous (Carbohydrates For Hypoglycemia ) 15 - 30 gm PO UD PRN PRN Reason: Hypoglycemia Protocol Stop: 02/20/21 04:21 Miscellaneous Information (Piperacill/Tazobac Consult Active) 1 ea N/A UD PRN PRN Reason: Consult Stop: 02/20/21 04:21 Oxybutynin Chloride (Oxybutynin Chloride 5 Mg Tab) 5 mg PO TID [facility] Stop: 02/20/21 08:59 Last Admin: 01/28/21 13:21 Dose: 5 mg Documented by: Potassium Chloride (Potassium Chloride Crtab 20 Meq Tabcr) 20 meq PO TID [facility] Stop: 02/26/21 20:59 Last Admin: 01/28/21 13:21 Dose: 20 meq Documented by: Prednisone (Prednisone 10 Mg Tablet) 10 mg PO DAILY [facility] Stop: 02/20/21 08:59 Last Admin: 01/28/21 07:57 Dose: 10 mg Documented by: PG Care Time/CCT Total # of Minutes Spent Total Time Spent with Patient: Total time spent is greater than 50% in coordination of care (as documented) at patient's floor/unit and/or counseling patient: Coding Level of Care Code 37348 Subseq Hosp Care Lvl 2 Diagnoses Acute hyponatremia E87.1 Acute UTI N39.0 HTN (hypertension) I10 Pemphigus foliaceus L10.2 HLD (hyperlipidemia) E78.5 Diabetes E11.9 Quadriplegia G82.50 Diarrhea R19.7 Diarrhea type: unspecified type (1) Diarrhea Diarrhea type: unspecified type Qualified Code(s): R19.7 - Diarrhea, unspecified
[2021-01-28] MEDS: ATORVASTATIN 20 MG TAB PO SCH (21:28)
[2021-01-29] MEDS: HEPARIN SOD 5,000 UNIT/0.5 ML VIAL SQ SCH ×3 (06:06→21:36)
[2021-01-29] MEDS: PIPERACILLIN/TAZOBACTAM 4.5 GM in DEXTROSE 5% 100 ML IV SCH ×3 (06:06→21:46)
[2021-01-29 06:30] LABS: Hematocrit (blood only) 36.3 % (42-52); Hemoglobin 11.8 g/dL (14.0-18.0); Mean Corpuscular Hgb Conc 32.5 g/dL (32-36); Mean Corpuscular Volume 89.2 fL (80-100); Mean Platelet Volume 10.3 fL (7.4-10.4); Platelet Count 348 K/uL (130-400); RDW Coefficient of Variation 15.8 % (11.5-14.5); RDW Standard Deviation 51.9 fL (36.4-46.3); Red Blood Count 4.07 M/uL (4.7-6.1); White Blood Count 8.39 K/uL (4.8-10.8)
[2021-01-29 07:00] LABS: BUN Creatinine Ratio 18.9 (10-20); Blood Urea Nitrogen 7 mg/dl (7-18); Calcium 9.2 mg/dl (8.5-10.1); Carbon Dioxide 26 mmol/L (21-32); Chloride 109 mmol/L (98-107); Creatinine Clr Calc Pharmacy 283.1 ml/min; Est GFR (African American) > 150.0 ml/min; Est GFR (Non-African American) 140.5 ml/min; Glucose 117 mg/dl (70-99); Magnesium 2.2 mg/dl (1.8-2.4); Potassium 3.7 mmol/L (3.5-5.1); Sodium 140 mmol/L (136-145)
[2021-01-29] MEDS: FOLIC ACID 1 MG TAB PO SCH (08:21)
[2021-01-29] MEDS: OXYBUTYNIN CHLORIDE 5 MG TAB PO SCH ×3 (08:21→21:36)
[2021-01-29] MEDS: POTASSIUM CHLORIDE CRTAB 20 MEQ TABCR PO SCH ×3 (08:21→21:36)
[2021-01-29] MEDS: FAMOTIDINE 40 MG TABLET PO SCH (08:22)
[2021-01-29] MEDS: amLODIPine BESYLATE 5 MG TAB PO SCH (08:22)
[2021-01-29] MEDS: predniSONE 10 MG TABLET PO SCH (08:23)
[2021-01-29] MEDS: lisinopril 40 MG TAB PO SCH (08:23)
[2021-01-29] MEDS: BACLOFEN 10 MG TAB PO SCH ×3 (08:23→21:36)
[2021-01-29] MEDS: INSULIN ASPART 100 UNITS/ML 3 ML PEN SC SCH ×4 (08:59→21:37)
[2021-01-29] MEDS ORDERED: hydroCHLOROthiazide 25 MG TAB PO SCH (15:30)
[2021-01-29] MEDS ORDERED: hydrALAZINE HCL 20 MG/ML VIAL IV PRN (15:30)
--- NOTE | 2021-01-29 17:07 | Hospitalist Progress Note ---
Date of Service January 29, 2021 Assessment & Plan (1) Acute hyponatremia: Plan: Ud=709 in ER. Na has been normal resume HCTZ for now due to elevated BP but might use Hydralazine TID instead (2) Acute UTI: Plan: gets suprapubic cath exchanged weekly by home RN Urinary catheter-associated UTI Urine culture from 01/16 with ESBL E. coli as well as Pseudomonas. continue Zosyn, needs 14 days per ID consult today is day 9, needs 5 more days looking into getting him to SNF but by the time he is accepted, approved it will almost be 14 days (3) HTN (hypertension): Plan: BP elevated -Continue Amlodipine 10mg daily -Continue Lisinopril 40mg resume HCTZ, use Hydralazine PRN might end up using Hydralazine TID (4) Pemphigus foliaceus: Plan: Chronic -Continue Prednisone -Continue MTX -Continue Clobetasol responding to clobetasol. will monitor . (5) HLD (hyperlipidemia): Plan: Chronic -Continue Atorvastatin (6) Diabetes: Plan: Chronic. GUW=057 -Hold Metformin and Glipizide -Lantus with ISS, goal blood sugar 100 - 140 monitor for hypoglycemia (7) Quadriplegia: Plan: Baseline -Turn q 2 hours -Suprapubic catheter management -Continue Baclofen 25mg po TID -Continue Oxybutynin TID (8) Diarrhea: Plan: negative c diff Admission and Anticipated Discharge Date Admission Date: January 21, 2021 Subjective patient having some sweats intermittently, feels weak he says this is what happens when his catheter needs exchanged, spoke with urology, should wait until he is at home asked RN to try to flush catheter BP running high despite Norvasc and lisinopril, add back HCTZ and try Hydralazine eating well reviewed ID recommendations from a few days ago, they had recommended 14 days total spoke with CM, ask to look into SNF Review of Systems Review of Systems: All systems reviewed & are unremarkable except as noted in Subjective Physical Exam Constitutional: well developed, well nourished, + morbidly obese and comfortable; no acute distress Neck: trachea midline, no thyromegaly Respiratory: normal respiratory effort, lungs clear to auscultation Cardiovascular: RRR, no murmur, no edema Gastrointestinal (Abdomen): normal bowel sounds, soft, nontender, no hepatosplenomegaly Skin: + rash (lower legs) Psychiatric: A+Ox3, euthymic affect Results & Data Results & Data ([facility]) Vital Signs (Past 12 Hours) Vital Signs Temp Pulse Resp BP BP Pulse Ox 01/29/21 15:00 36.8 C 87 18 182/110 H 98 01/29/21 09:17 168/93 H 01/29/21 08:12 36.6 C 65 18 179/107 H 98 Laboratory Results Laboratory Results - last 24 hr 01/28/21 01/29/21 01/29/21 20:36 05:42 05:42 WBC 8.39 RBC 4.07 L Hgb 11.8 L Hct 36.3 L MCV 89.2 MCH 29.0 MCHC 32.5 RDW Std Deviation 51.9 H RDW Coeff of Sandor 15.8 H Plt Count 348 MPV 10.3 Sodium 140 Potassium 3.7 D Chloride 109 H Carbon Dioxide 26 Anion Gap 5.0 BUN 7 Creatinine 0.38 L Est Cr Clr Drug Dosing 283.1 Est GFR ( Amer) > 150.0 Est GFR (Non-Af Amer) 140.5 BUN/Creatinine Ratio 18.9 Glucose 117 H POC Glucose 156 H Calcium 9.2 Magnesium 2.2 01/29/21 01/29/21 08:14 12:14 WBC RBC Hgb Hct MCV MCH MCHC RDW Std Deviation RDW Coeff of Sandor Plt Count MPV Sodium Potassium Chloride Carbon Dioxide Anion Gap BUN Creatinine Est Cr Clr Drug Dosing Est GFR ( Amer) Est GFR (Non-Af Amer) BUN/Creatinine Ratio Glucose POC Glucose 124 H 156 H Calcium Magnesium Medications Administered Current Inpatient Medications Amlodipine Besylate (Amlodipine Besylate 5 Mg Tab) 10 mg PO DAILY [facility] Stop: 02/20/21 08:59 Last Admin: 01/29/21 08:22 Dose: 10 mg Documented by: Atorvastatin Calcium (Atorvastatin 20 Mg Tab) 20 mg PO HS [facility] Stop: 02/20/21 20:59 Last Admin: 01/28/21 21:28 Dose: 20 mg Documented by: Baclofen (Baclofen 10 Mg Tab) 25 mg PO TID [facility] Stop: 02/20/21 08:59 Last Admin: 01/29/21 14:49 Dose: 25 mg Documented by: Bisacodyl (Bisacodyl 10 Mg Supp) 20 mg [place] Q2D@0900 [facility] Stop: 02/23/21 09:44 Last Admin: 01/28/21 10:20 Dose: Not Given Documented by: Clobetasol Propionate (Clobetasol Propionate 0.05% Oint 15 Gm Tube) 1 appln EXT BID PRN PRN Reason: Skin irritation Stop: 02/24/21 17:24 Last Admin: 01/27/21 17:43 Dose: 1 appln Documented by: Dextrose (Dextrose 50% 50 Ml Syringe) 25 - 50 ml IV UD PRN; Protocol PRN Reason: Hypoglycemia Protocol Stop: 02/20/21 04:21 Famotidine (Famotidine 40 Mg Tablet) 40 mg PO DAILY [facility] Stop: 02/20/21 08:59 Last Admin: 01/29/21 08:22 Dose: 40 mg Documented by: Folic Acid (Folic Acid 1 Mg Tab) 1 mg PO DAILY [facility] Stop: 02/20/21 08:59 Last Admin: 01/29/21 08:21 Dose: 1 mg Documented by: Glucagon (Glucagon For Inj 1 Mg Vial) 1 mg SQ UD PRN; Protocol PRN Reason: Hypoglycemia Protocol Stop: 02/20/21 04:21 Glucose (Glucose 10 Tabs/Tube) 4 - 8 tabs PO UD PRN; Protocol PRN Reason: Hypoglycemia Protocol Stop: 02/20/21 04:21 Glucose (Glucose 40% Gel 15 Gm Tube) 15 - 30 gm PO UD PRN; Protocol PRN Reason: Hypoglycemia Protocol Stop: 02/20/21 04:21 Heparin Sodium (Porcine) (Heparin Sod 5,000 Unit/0.5 Ml Vial) 5,000 units SQ Q8 [facility] Stop: 02/27/21 05:59 Last Admin: 01/29/21 14:50 Dose: 5,000 units Documented by: Hydralazine HCl (Hydralazine Hcl 20 Mg/Ml Vial) 10 mg IV Q6 PRN PRN Reason: Blood Pressure - High Stop: 02/28/21 15:29 Hydrochlorothiazide (Hydrochlorothiazide 25 Mg Tab) 25 mg PO QAM [facility] Stop: 02/28/21 15:29 Last Admin: 01/29/21 16:16 Dose: 25 mg Documented by: Piperacillin Sod/Tazobactam (Sod 4.5 gm/ Dextrose) 120 mls @ 30 mls/hr IV Q8H [facility]; Protocol Stop: 01/31/21 05:59 Last Admin: 01/29/21 14:52 Dose: 30 mls/hr Documented by: Insulin Aspart (Insulin Aspart 100 Units/Ml 3 Ml Pen) 0 units SC ACHS [facility] Stop: 02/20/21 07:29 Last Admin: 01/29/21 12:56 Dose: 3 units Documented by: Lisinopril (Lisinopril 40 Mg Tab) 40 mg PO DAILY [facility] Stop: 02/20/21 08:59 Last Admin: 01/29/21 08:23 Dose: 40 mg Documented by: Methotrexate (Methotrexate Sodium 2.5 Mg Tab) 15 mg PO Q7D [facility] Stop: 02/24/21 08:59 Last Admin: 01/25/21 08:39 Dose: 15 mg Documented by: Miconazole Nitrate (Miconazole Nitrate Powder 43 Gm) 1 appln EXT PRN PRN PRN Reason: Affected Skin Folds Stop: 02/24/21 10:26 Last Admin: 01/27/21 17:44 Dose: 1 appln Documented by: Miscellaneous (Carbohydrates For Hypoglycemia ) 15 - 30 gm PO UD PRN PRN Reason: Hypoglycemia Protocol Stop: 02/20/21 04:21 Miscellaneous Information (Piperacill/Tazobac Consult Active) 1 ea N/A UD PRN PRN Reason: Consult Stop: 02/20/21 04:21 Oxybutynin Chloride (Oxybutynin Chloride 5 Mg Tab) 5 mg PO TID [facility] Stop: 02/20/21 08:59 Last Admin: 01/29/21 14:49 Dose: 5 mg Documented by: Potassium Chloride (Potassium Chloride Crtab 20 Meq Tabcr) 20 meq PO TID [facility] Stop: 02/26/21 20:59 Last Admin: 01/29/21 14:49 Dose: 20 meq Documented by: Prednisone (Prednisone 10 Mg Tablet) 10 mg PO DAILY [facility] Stop: 02/20/21 08:59 Last Admin: 01/29/21 08:23 Dose: 10 mg Documented by: PG Care Time/CCT Total # of Minutes Spent Total Time Spent with Patient: Total time spent is greater than 50% in coordination of care (as documented) at patient's floor/unit and/or counseling patient: Coding Level of Care Code 10841 Subseq Hosp Care Lvl 3 Diagnoses Acute hyponatremia E87.1 Acute UTI N39.0 HTN (hypertension) I10 Pemphigus foliaceus L10.2 HLD (hyperlipidemia) E78.5 Diabetes E11.9 Quadriplegia G82.50 Diarrhea R19.7 Diarrhea type: unspecified type (1) Diarrhea Diarrhea type: unspecified type Qualified Code(s): R19.7 - Diarrhea, unspecified
[2021-01-29] MEDS: ATORVASTATIN 20 MG TAB PO SCH (21:36)
[2021-01-30] MEDS: PIPERACILLIN/TAZOBACTAM 4.5 GM in DEXTROSE 5% 100 ML IV SCH ×3 (06:20→22:28)
[2021-01-30] MEDS: HEPARIN SOD 5,000 UNIT/0.5 ML VIAL SQ SCH ×3 (06:21→20:49)
[2021-01-30] MEDS ORDERED: hydroCHLOROthiazide 25 MG TAB PO SCH (09:00)
[2021-01-30] MEDS: FAMOTIDINE 40 MG TABLET PO SCH (09:15)
[2021-01-30] MEDS: predniSONE 10 MG TABLET PO SCH (09:15)
[2021-01-30] MEDS: amLODIPine BESYLATE 5 MG TAB PO SCH (09:15)
[2021-01-30] MEDS: lisinopril 40 MG TAB PO SCH (09:15)
[2021-01-30] MEDS: FOLIC ACID 1 MG TAB PO SCH (09:16)
[2021-01-30] MEDS: BACLOFEN 10 MG TAB PO SCH ×3 (09:16→20:48)
[2021-01-30] MEDS: OXYBUTYNIN CHLORIDE 5 MG TAB PO SCH ×3 (09:16→20:48)
[2021-01-30] MEDS: POTASSIUM CHLORIDE CRTAB 20 MEQ TABCR PO SCH ×3 (09:18→20:48)
[2021-01-30] MEDS: INSULIN ASPART 100 UNITS/ML 3 ML PEN SC SCH ×4 (09:21→20:46)
[2021-01-30] MEDS: bisacodyL 10 MG SUPP PR SCH ×2 (10:01→10:24)
--- NOTE | 2021-01-30 12:18 | Hospitalist Progress Note ---
Date of Service January 30, 2021 Assessment & Plan (1) Acute hyponatremia: Plan: Rd=365 in ER. Na has been normal resume HCTZ at 12.5mg daily due to HTN (2) Acute UTI: Plan: gets suprapubic cath exchanged weekly by home RN Urinary catheter-associated UTI Urine culture from 01/16 with ESBL E. coli as well as Pseudomonas. continue Zosyn, needs 14 days per ID consult today is day 10 looking into getting him to SNF but by the time he is accepted, approved it will almost be 14 days will likely stay in hospital for full course (3) HTN (hypertension): Plan: BP elevated -Continue Amlodipine 10mg daily -Continue Lisinopril 40mg resume HCTZ 12.5mg daily check sodium tomorrow, if going down change to Hydralazine (4) Pemphigus foliaceus: Plan: Chronic -Continue Prednisone -Continue MTX -Continue Clobetasol responding to clobetasol. will monitor . (5) HLD (hyperlipidemia): Plan: Chronic -Continue Atorvastatin (6) Diabetes: Plan: Chronic. YFR=236 -Hold Metformin and Glipizide -Lantus with ISS, goal blood sugar 100 - 140 monitor for hypoglycemia, no episodes (7) Quadriplegia: Plan: Baseline -Turn q 2 hours -Suprapubic catheter management -Continue Baclofen 25mg po TID -Continue Oxybutynin TID (8) Diarrhea: Plan: negative c diff Admission and Anticipated Discharge Date Admission Date: January 21, 2021 Subjective patient says he is doing better with the catheter flushes, today is day 10 of antibiotics eating well, breathing well BP is better controlled Review of Systems Review of Systems: All systems reviewed & are unremarkable except as noted in Subjective Physical Exam Constitutional: well developed, well nourished, + morbidly obese and comfortable; no acute distress Neck: trachea midline, no thyromegaly Respiratory: normal respiratory effort, lungs clear to auscultation Cardiovascular: RRR, no murmur, no edema Gastrointestinal (Abdomen): normal bowel sounds, soft, nontender, no hepatosplenomegaly Skin: + rash (lower legs) Psychiatric: A+Ox3, euthymic affect Results & Data Results & Data ([facility]) Vital Signs (Past 12 Hours) Vital Signs Temp Pulse Resp BP Pulse Ox 01/30/21 08:15 36.9 C 71 18 154/92 H 98 Laboratory Results Laboratory Results - last 24 hr 01/30/21 01/30/21 01/30/21 08:14 12:12 17:00 POC Glucose 135 H 159 H 170 H 01/30/21 20:45 POC Glucose 165 H Medications Administered Current Inpatient Medications Amlodipine Besylate (Amlodipine Besylate 5 Mg Tab) 10 mg PO DAILY [facility] Stop: 02/20/21 08:59 Last Admin: 01/30/21 09:15 Dose: 10 mg Documented by: Atorvastatin Calcium (Atorvastatin 20 Mg Tab) 20 mg PO HS [facility] Stop: 02/20/21 20:59 Last Admin: 01/30/21 20:48 Dose: 20 mg Documented by: Baclofen (Baclofen 10 Mg Tab) 25 mg PO TID [facility] Stop: 02/20/21 08:59 Last Admin: 01/30/21 20:48 Dose: 25 mg Documented by: Bisacodyl (Bisacodyl 10 Mg Supp) 20 mg [place] Q2D@0900 [facility] Stop: 02/23/21 09:44 Last Admin: 01/30/21 10:24 Dose: Not Given Documented by: Clobetasol Propionate (Clobetasol Propionate 0.05% Oint 15 Gm Tube) 1 appln EXT BID PRN PRN Reason: Skin irritation Stop: 02/24/21 17:24 Last Admin: 01/27/21 17:43 Dose: 1 appln Documented by: Dextrose (Dextrose 50% 50 Ml Syringe) 25 - 50 ml IV UD PRN; Protocol PRN Reason: Hypoglycemia Protocol Stop: 02/20/21 04:21 Famotidine (Famotidine 40 Mg Tablet) 40 mg PO DAILY [facility] Stop: 02/20/21 08:59 Last Admin: 01/30/21 09:15 Dose: 40 mg Documented by: Folic Acid (Folic Acid 1 Mg Tab) 1 mg PO DAILY [facility] Stop: 02/20/21 08:59 Last Admin: 01/30/21 09:16 Dose: 1 mg Documented by: Glucagon (Glucagon For Inj 1 Mg Vial) 1 mg SQ UD PRN; Protocol PRN Reason: Hypoglycemia Protocol Stop: 02/20/21 04:21 Glucose (Glucose 10 Tabs/Tube) 4 - 8 tabs PO UD PRN; Protocol PRN Reason: Hypoglycemia Protocol Stop: 02/20/21 04:21 Glucose (Glucose 40% Gel 15 Gm Tube) 15 - 30 gm PO UD PRN; Protocol PRN Reason: Hypoglycemia Protocol Stop: 02/20/21 04:21 Heparin Sodium (Porcine) (Heparin Sod 5,000 Unit/0.5 Ml Vial) 5,000 units SQ Q8 [facility] Stop: 02/27/21 05:59 Last Admin: 01/30/21 20:49 Dose: 5,000 units Documented by: Hydralazine HCl (Hydralazine Hcl 20 Mg/Ml Vial) 10 mg IV Q6 PRN PRN Reason: Blood Pressure - High Stop: 02/28/21 15:29 Hydrochlorothiazide (Hydrochlorothiazide 25 Mg Tab) 12.5 mg PO QAM [facility] Stop: 03/01/21 08:59 Last Admin: 01/30/21 09:17 Dose: 12.5 mg Documented by: Piperacillin Sod/Tazobactam (Sod 4.5 gm/ Dextrose) 120 mls @ 30 mls/hr IV Q8H [facility]; Protocol Stop: 02/03/21 23:59 Last Infusion: 01/30/21 17:48 Dose: Infused Documented by: Insulin Aspart (Insulin Aspart 100 Units/Ml 3 Ml Pen) 0 units SC ACHS [facility] Stop: 02/20/21 07:29 Last Admin: 01/30/21 20:46 Dose: 1 units Documented by: Lisinopril (Lisinopril 40 Mg Tab) 40 mg PO DAILY [facility] Stop: 02/20/21 08:59 Last Admin: 01/30/21 09:15 Dose: 40 mg Documented by: Methotrexate (Methotrexate Sodium 2.5 Mg Tab) 15 mg PO Q7D [facility] Stop: 02/24/21 08:59 Last Admin: 01/25/21 08:39 Dose: 15 mg Documented by: Miconazole Nitrate (Miconazole Nitrate Powder 43 Gm) 1 appln EXT PRN PRN PRN Reason: Affected Skin Folds Stop: 02/24/21 10:26 Last Admin: 01/27/21 17:44 Dose: 1 appln Documented by: Miscellaneous (Carbohydrates For Hypoglycemia ) 15 - 30 gm PO UD PRN PRN Reason: Hypoglycemia Protocol Stop: 02/20/21 04:21 Miscellaneous Information (Piperacill/Tazobac Consult Active) 1 ea N/A UD PRN PRN Reason: Consult Stop: 02/20/21 04:21 Oxybutynin Chloride (Oxybutynin Chloride 5 Mg Tab) 5 mg PO TID [facility] Stop: 02/20/21 08:59 Last Admin: 01/30/21 20:48 Dose: 5 mg Documented by: Potassium Chloride (Potassium Chloride Crtab 20 Meq Tabcr) 20 meq PO TID [facility] Stop: 02/26/21 20:59 Last Admin: 01/30/21 20:48 Dose: 20 meq Documented by: Prednisone (Prednisone 10 Mg Tablet) 10 mg PO DAILY [facility] Stop: 02/20/21 08:59 Last Admin: 01/30/21 09:15 Dose: 10 mg Documented by: PG Care Time/CCT Total # of Minutes Spent Total Time Spent with Patient: Total time spent is greater than 50% in coordina tion of care (as documented) at patient's floor/unit and/or counseling patient: Coding Level of Care Code 15190 Subseq Hosp Care Lvl 2 Diagnoses Acute hyponatremia E87.1 Acute UTI N39.0 HTN (hypertension) I10 Pemphigus foliaceus L10.2 HLD (hyperlipidemia) E78.5 Diabetes E11.9 Quadriplegia G82.50 Diarrhea R19.7 Diarrhea type: unspecified type (1) Diarrhea Diarrhea type: unspecified type Qualified Code(s): R19.7 - Diarrhea, unspecified
[2021-01-30] MEDS: ATORVASTATIN 20 MG TAB PO SCH (20:48)
[2021-01-31] MEDS: PIPERACILLIN/TAZOBACTAM 4.5 GM in DEXTROSE 5% 100 ML IV SCH ×3 (05:39→21:49)
[2021-01-31] MEDS: HEPARIN SOD 5,000 UNIT/0.5 ML VIAL SQ SCH ×3 (05:39→21:42)
[2021-01-31 06:45] LABS: BUN Creatinine Ratio 18.2 (10-20); Blood Urea Nitrogen 7 mg/dl (7-18); Carbon Dioxide 24 mmol/L (21-32); Chloride 104 mmol/L (98-107); Creatinine Clr Calc Pharmacy 262.4 ml/min; Est GFR (African American) > 150.0 ml/min; Est GFR (Non-African American) 136.1 ml/min; Glucose 118 mg/dl (70-99); Potassium 3.6 mmol/L (3.5-5.1); Sodium 135 mmol/L (136-145)
[2021-01-31] MEDS: FAMOTIDINE 40 MG TABLET PO SCH (07:58)
[2021-01-31] MEDS: POTASSIUM CHLORIDE CRTAB 20 MEQ TABCR PO SCH ×3 (07:58→21:43)
[2021-01-31] MEDS: BACLOFEN 10 MG TAB PO SCH ×3 (07:59→21:44)
[2021-01-31] MEDS: OXYBUTYNIN CHLORIDE 5 MG TAB PO SCH ×3 (07:59→21:42)
[2021-01-31] MEDS: predniSONE 10 MG TABLET PO SCH (08:01)
[2021-01-31] MEDS: lisinopril 40 MG TAB PO SCH (08:01)
[2021-01-31] MEDS: FOLIC ACID 1 MG TAB PO SCH (08:01)
[2021-01-31] MEDS: amLODIPine BESYLATE 5 MG TAB PO SCH (08:02)
[2021-01-31] MEDS: INSULIN ASPART 100 UNITS/ML 3 ML PEN SC SCH ×4 (09:13→21:20)
[2021-01-31] MEDS: hydrALAZINE HCL 25 MG TAB PO SCH ×2 (09:13→21:46)
[2021-01-31] MEDS ORDERED: predniSONE 10 MG TABLET PO STA (10:19)
--- NOTE | 2021-01-31 10:29 | Hospitalist Progress Note ---
Date of Service January 31, 2021 Assessment & Plan (1) Acute UTI: Plan: gets suprapubic cath exchanged weekly by home RN Urinary catheter-associated UTI Urine culture from 01/16 with ESBL E. coli as well as Pseudomonas. continue Zosyn, needs 14 days per ID consult today is day 11 looking into getting him to SNF but by the time he is accepted, approved it will almost be 14 days will likely stay in hospital for full course and then go home with home aides (2) Acute hyponatremia: Plan: Qh=939 in ER. 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 (5) HLD (hyperlipidemia): Plan: Chronic -Continue Atorvastatin (6) Diabetes: Plan: Chronic. IEC=848 -Hold Metformin and Glipizide -Lantus with ISS, goal blood sugar 100 - 140 monitor for hypoglycemia, no episodes will give NPH with the higher dose of Prednisone this morning, 30 units, monitor how he responds (7) Quadriplegia: Plan: Baseline -Turn q 2 hours -Suprapubic catheter management -Continue Baclofen 25mg po TID -Continue Oxybutynin TID (8) Diarrhea: Plan: negative c diff Admission and Anticipated Discharge Date Admission Date: January 21, 2021 Subjective BP well controlled, talked to him about Hydralazine 25mg BID he says his pemphigus is acting up, I asked if he ever gets pulse doses of Prednisone, he confirms that is what they do outpatient will give him 40mg Prednisone eating well, breathing well catheter is being flushed BID and draining urine appropriately talked with CM, insurance auth could take 72 hours, likely ready to go home by that point Review of Systems Review of Systems: All systems reviewed & are unremarkable except as noted in Subjective Integumentary: + rash (pemphigus a little worse today on arms) Physical Exam Constitutional: well developed, well nourished, + morbidly obese and comfortable; no acute distress Neck: trachea midline, no thyromegaly Respiratory: normal respiratory effort, lungs clear to auscultation Cardiovascular: RRR, no murmur, no edema Gastrointestinal (Abdomen): normal bowel sounds, soft, nontender, no hepatosplenomegaly Skin: + rash (pemphigus on legs, a little worse on arms today) Psychiatric: A+Ox3, euthymic affect Results & Data Results & Data ([facility]) Vital Signs (Past 12 Hours) Vital Signs Temp Pulse Resp BP Pulse Ox 01/31/21 08:19 36.9 C 74 16 99 01/31/21 07:57 86 14 129/84 01/30/21 23:36 36.9 C 78 18 141/88 H 98 Laboratory Results Laboratory Results - last 24 hr 01/30/21 01/30/21 01/30/21 12:12 17:00 20:45 Sodium Potassium Chloride Carbon Dioxide Anion Gap BUN Creatinine Est Cr Clr Drug Dosing Est GFR ( Amer) Est GFR (Non-Af Amer) BUN/Creatinine Ratio Glucose POC Glucose 159 H 170 H 165 H Calcium 01/31/21 01/31/21 05:42 08:02 Sodium 135 L Potassium 3.6 Chloride 104 Carbon Dioxide 24 Anion Gap 7.0 BUN 7 Creatinine 0.41 L Est Cr Clr Drug Dosing 262.4 Est GFR ( Amer) > 150.0 Est GFR (Non-Af Amer) 136.1 BUN/Creatinine Ratio 18.2 Glucose 118 H POC Glucose 118 H Calcium 9.0 Medications Administered Current Inpatient Medications Amlodipine Besylate (Amlodipine Besylate 5 Mg Tab) 10 mg PO DAILY [facility] Stop: 02/20/21 08:59 Last Admin: 01/31/21 08:02 Dose: 10 mg Documented by: Atorvastatin Calcium (Atorvastatin 20 Mg Tab) 20 mg PO HS [facility] Stop: 02/20/21 20:59 Last Admin: 01/30/21 20:48 Dose: 20 mg Documented by: Baclofen (Baclofen 10 Mg Tab) 25 mg PO TID [facility] Stop: 02/20/21 08:59 Last Admin: 01/31/21 07:59 Dose: 25 mg Documented by: Bisacodyl (Bisacodyl 10 Mg Supp) 20 mg PA Q2D@0900 [facility] Stop: 02/23/21 09:44 Last Admin: 01/30/21 10:24 Dose: Not Given Documented by: Clobetasol Propionate (Clobetasol Propionate 0.05% Oint 15 Gm Tube) 1 appln EXT BID PRN PRN Reason: Skin irritation Stop: 02/24/21 17:24 Last Admin: 01/27/21 17:43 Dose: 1 appln Documented by: Dextrose (Dextrose 50% 50 Ml Syringe) 25 - 50 ml IV UD PRN; Protocol PRN Reason: Hypoglycemia Protocol Stop: 02/20/21 04:21 Famotidine (Famotidine 40 Mg Tablet) 40 mg PO DAILY [facility] Stop: 02/20/21 08:59 Last Admin: 01/31/21 07:58 Dose: 40 mg Documented by: Folic Acid (Folic Acid 1 Mg Tab) 1 mg PO DAILY [facility] Stop: 02/20/21 08:59 Last Admin: 01/31/21 08:01 Dose: 1 mg Documented by: Glucagon (Glucagon For Inj 1 Mg Vial) 1 mg SQ UD PRN; Protocol PRN Reason: Hypoglycemia Protocol Stop: 02/20/21 04:21 Glucose (Glucose 10 Tabs/Tube) 4 - 8 tabs PO UD PRN; Protocol PRN Reason: Hypoglycemia Protocol Stop: 02/20/21 04:21 Glucose (Glucose 40% Gel 15 Gm Tube) 15 - 30 gm PO UD PRN; Protocol PRN Reason: Hypoglycemia Protocol Stop: 02/20/21 04:21 Heparin Sodium (Porcine) (Heparin Sod 5,000 Unit/0.5 Ml Vial) 5,000 units SQ Q8 [facility] Stop: 02/27/21 05:59 Last Admin: 01/31/21 05:39 Dose: 5,000 units Documented by: Hydralazine HCl (Hydralazine Hcl 20 Mg/Ml Vial) 10 mg IV Q6 PRN PRN Reason: Blood Pressure - High Stop: 02/28/21 15:29 Hydralazine HCl (Hydralazine Hcl 25 Mg Tab) 25 mg PO BID [facility] Stop: 03/02/21 08:59 Last Admin: 01/31/21 09:13 Dose: 25 mg Documented by: Piperacillin Sod/Tazobactam (Sod 4.5 gm/ Dextrose) 120 mls @ 30 mls/hr IV Q8H [facility]; Protocol Stop: 02/03/21 23:59 Last Infusion: 01/31/21 09:45 Dose: Infused Documented by: Insulin Aspart (Insulin Aspart 100 Units/Ml 3 Ml Pen) 0 units SC ACHS [facility] Stop: 02/20/21 07:29 Last Admin: 01/31/21 09:13 Dose: 2 units Documented by: Lisinopril (Lisinopril 40 Mg Tab) 40 mg PO DAILY [facility] Stop: 02/20/21 08:59 Last Admin: 01/31/21 08:01 Dose: 40 mg Documented by: Methotrexate (Methotrexate Sodium 2.5 Mg Tab) 15 mg PO Q7D [facility] Stop: 02/24/21 08:59 Last Admin: 01/25/21 08:39 Dose: 15 mg Documented by: Miconazole Nitrate (Miconazole Nitrate Powder 43 Gm) 1 appln EXT PRN PRN PRN Reason: Affected Skin Folds Stop: 02/24/21 10:26 Last Admin: 01/27/21 17:44 Dose: 1 appln Documented by: Miscellaneous (Carbohydrates For Hypoglycemia ) 15 - 30 gm PO UD PRN PRN Reason: Hypoglycemia Protocol Stop: 02/20/21 04:21 Miscellaneous Information (Piperacill/Tazobac Consult Active) 1 ea N/A UD PRN PRN Reason: Consult Stop: 02/20/21 04:21 Oxybutynin Chloride (Oxybutynin Chloride 5 Mg Tab) 5 mg PO TID [facility] Stop: 02/20/21 08:59 Last Admin: 01/31/21 07:59 Dose: 5 mg Documented by: Potassium Chloride (Potassium Chloride Crtab 20 Meq Tabcr) 20 meq PO TID [facility] Stop: 02/26/21 20:59 Last Admin: 01/31/21 07:58 Dose: 20 meq Documented by: Prednisone (Prednisone 20 Mg Tab) 40 mg PO DAILY [facility] Stop: 03/03/21 08:59 PG Care Time/CCT Total # of Minutes Spent Total Time Spent with Patient: Total time spent is greater than 50% in coordination of care (as documented) at patient's floor/unit and/or counseling patient: Coding Level of Care Code 75830 Subseq Hosp Care Lvl 3 Diagnoses Acute hyponatremia E87.1 Acute UTI N39.0 HTN (hypertension) I10 Pemphigus foliaceus L10.2 HLD (hyperlipidemia) E78.5 Diabetes E11.9 Quadriplegia G82.50 Diarrhea R19.7 Diarrhea type: unspecified type (1) Diarrhea Diarrhea type: unspecified type Qualified Code(s): R19.7 - Diarrhea, unspecified
[2021-01-31] MEDS: INSULIN HUMAN NPH SC SCH (13:00)
[2021-01-31] MEDS: ATORVASTATIN 20 MG TAB PO SCH (21:43)
[2021-02-01] MEDS: PIPERACILLIN/TAZOBACTAM 4.5 GM in DEXTROSE 5% 100 ML IV SCH ×3 (05:37→22:04)
[2021-02-01] MEDS: HEPARIN SOD 5,000 UNIT/0.5 ML VIAL SQ SCH ×3 (05:38→22:06)
[2021-02-01] MEDS: INSULIN ASPART 100 UNITS/ML 3 ML PEN SC SCH ×4 (08:52→22:04)
[2021-02-01] MEDS: amLODIPine BESYLATE 5 MG TAB PO SCH (08:59)
[2021-02-01] MEDS: BACLOFEN 10 MG TAB PO SCH ×3 (09:00→22:08)
[2021-02-01] MEDS ORDERED: predniSONE 20 MG TAB PO SCH ×2 (09:00→21:00)
[2021-02-01] MEDS: FAMOTIDINE 40 MG TABLET PO SCH (09:02)
[2021-02-01] MEDS: bisacodyL 10 MG SUPP PR SCH (09:02)
[2021-02-01] MEDS: hydrALAZINE HCL 25 MG TAB PO SCH ×2 (09:03→22:10)
[2021-02-01] MEDS: FOLIC ACID 1 MG TAB PO SCH (09:03)
[2021-02-01] MEDS: lisinopril 40 MG TAB PO SCH (09:04)
[2021-02-01] MEDS: metHOTREXate sodium 2.5 MG TAB PO SCH (09:04)
[2021-02-01] MEDS: POTASSIUM CHLORIDE CRTAB 20 MEQ TABCR PO SCH ×3 (09:06→22:08)
[2021-02-01] MEDS: OXYBUTYNIN CHLORIDE 5 MG TAB PO SCH ×3 (09:06→22:09)
[2021-02-01] MEDS: INSULIN HUMAN NPH SC SCH (09:08)
--- NOTE | 2021-02-01 09:40 | Urology Consultation ---
Date of Consultation February 01, 2021 Assessment & Plan (1) UTI (urinary tract infection) due to urinary indwelling catheter: (2) Suprapubic catheter: - Urology consulted to assist in suprapubic catheter change prior to discharge. - He is afebrile, lab work reviewed - white count and creatinine stable. - Using sterile technique, suprapubic catheter changed at bedside without difficulty. Catheter was flushed, patent, and did not appear obstructed. Pt tolerated well. - Continue with routine catheter changes and flushes as previously recommended. - Continue supportive care and antibiotics per primary service. - He is pending discharge, continue with services for routine catheter care upon discharge. - Expected clinical course reviewed with patient, all questions answered. - Will arrange outpatient follow-up with our service. Thank you for allowing us to participate in the acute care of Mr. Henry. Please reconsult us with additional questions, concerns or changes in patient status. History of Present Illness Reason for Consultation: SP Tube catheter change Requesting Physician: Dr. Oleary Attending Physician: John Oleary DO History of Present Illness 51-year-old male with past medical history of quadriplegia, urinary retention with chronic suprapubic catheter, hypertension, hyperlipidemia, and recurrent UTI that was admitted to the hospital on 01/21 with headache, catheter malfunction, hyponatremia, and suspected urinary tract infection. Urology consulted to assist in changing suprapubic catheter due to possible obstruction. Patient known to [facility], follows with Dr. Nicole on a routine basis. Chart review: Afebrile Labs reviewed - Wbc 8.39 (8/3) Hgb 11.8 (8.3) Creatinine 0.41 (8/5) Urinalysis on admission showed 2+ Leukocytes, >30 WBC, 0-4 RBC, negative for nitrates and bacteria UC&S 01/21 showed E. coli ESBL, Pseudomonas BCx 01/21 no growth x 5 days On IV Zosyn Patient seen and examined at bedside. He reports he is feeling better overall since admission. No headache. Reports suprapubic catheter was irrigated by [facility] staff starting a few days ago, but states catheter has not been functioning properly since this morning. Reports a lot of sediment and debris. Catheter as outpatient has been changed on a weekly basis with routine flushes, typically twice daily, with sterile water. Last SP tube change by home nursing on 01/21. Denies dysuria or hematuria. Currently denies bladder pain or pressure. Denies nausea or vomiting. Denies fevers or chills. Notes occasional shakiness. No additional concerns today. Allergies Allergy/AdvReac Type Severity Reaction Status Date / Time Sulfa (Sulfonamide Allergy Severe Swelling Verified 01/21/21 00:39 Antibiotics) of Lip/Tongue/Throat Home Medications Medication Instructions Recorded Confirmed Type amlodipine 10 mg tablet 10 mg PO DAILY 05/11/18 01/21/21 History atorvastatin 20 mg tablet 20 mg PO HS 05/11/18 01/21/21 History baclofen 10 mg tablet 25 mg PO TID 05/11/18 01/21/21 History folic acid 1 mg tablet 1 mg PO DAILY 05/11/18 01/21/21 History metformin 500 mg tablet,extended 1,000 mg PO AMPM 05/11/18 01/21/21 History release 24 hr methotrexate sodium 2.5 mg tablet 15 mg PO WK 05/11/18 01/21/21 History oxybutynin chloride 5 mg tablet 5 mg PO TID 05/11/18 01/21/21 History prednisone 5 mg tablet 10 mg PO DAILY 05/11/18 01/21/21 History famotidine 40 mg tablet 40 mg PO DAILY 03/30/20 01/21/21 History glipizide 10 mg tablet, extended 10 mg PO QAM 10/26/20 01/21/21 History release 24 hr methenamine hippurate 1 gram tablet 1 g PO BID 11/05/20 01/21/21 History lisinopril 40 mg tablet 40 mg PO DAILY #30 tab 11/12/20 01/21/21 Rx clobetasol 0.05 % topical cream 1 applic TOPICAL BID PRN 01/21/21 01/21/21 History hydrochlorothiazide 12.5 mg capsule 12.5 mg PO QAM 01/21/21 01/21/21 History nitrofurantoin 100 mg PO BID 01/21/21 01/21/21 History monohydrate/macrocrystals 100 mg capsule Patient History Medical History Bladder stone Diabetes HLD (hyperlipidemia) HTN (hypertension) Hypertension Ileus Nephrolithiasis Neurogenic bladder Osteomyelitis Pemphigoid Pemphigus foliaceus Sacral wound Suprapubic catheter Surgical History History of hip surgery History of suprapubic catheter Previous back surgery Family History Mother Cancer Father Diabetes Grandfather Diabetes Social History Smoking Status: Never smoker Second Hand Exposure: No; Hx Alcohol Use: No Hx Substance Use: No Preferred Language: Armenian Communication Ability: Effective Technology Education Teacher Required: No Beliefs That Will Affect Care: None marital status: Single Current Living Situation Comment: Typically lives alone with daily care provider, nain Barker Feels Safe at Home: Yes during the past year weight has: decreased > 10 lbs Assistive Devices: None Review of Systems Constitutional: as per Subjective / HPI Respiratory: no problem reported Cardiovascular: no problem reported Gastrointestinal: as per Subjective / HPI Genitourinary: + as per Subjective / HPI Integumentary: + rash Neurologic: as per Subjective / HPI Physical Exam Constitutional: well developed, well nourished and + morbidly obese; no acute distress Respiratory: normal respiratory effort and able to speak in complete sentences; no respiratory distress and no labored breathing Gastrointestinal (Abdomen): Inspection/Auscultation: abdomen normal to inspection; abdomen not distended Percussion/Palpation: abdomen soft; abdomen nontender Musculoskeletal: Head/Neck/Chest: normocephalic and head atraumatic Skin: + rash (pemphigus scattered) Neurologic: awake Psychiatric: Orientation: alert and oriented x 3 Genitourinary: On exam, SP catheter intact. Yellow urine with moderate sediment and debris in collection bag, little drainage of urine noted during exam. Catheter was flushed with return of yellow urine with moderate sediment and debris. Using sterile technique, suprapubic catheter was changed at bedside without difficulty. Catheter was flushed, patent, and draining. Pt tolerated well. Results & Data ([facility]) Vital Signs (Past 12 Hours) Vital Signs Temp Pulse Resp BP Pulse Ox 02/01/21 07:42 101 H 02/01/21 07:29 36.4 C L 139 H 22 101/70 99 01/31/21 23:39 36.4 C L 75 17 128/78 99 PG Care Time/CCT Total # of Minutes Spent Total Time Spent with Patient: Total time spent is greater than 50% in coordination of care (as documented) at patient's floor/unit and/or counseling patient: Coding Level of Care Code 77235 Inpt Consult Level 3 Diagnoses UTI (urinary tract infection) due to urinary indwelling catheter T83.511A; N39.0 Encounter type: initial encounter Indwelling urinary catheter type: unspecified Suprapubic catheter Z93.59 (1) UTI (urinary tract infection) due to urinary indwelling catheter Encounter type: initial encounter Indwelling urinary catheter type: unspecified Qualified Code(s): T83.511A - Infection and inflammatory reaction due to indwelling urethral catheter, initial encounter; N39.0 - Urinary tract infection, site not specified
--- NOTE | 2021-02-01 12:54 | Hospitalist Progress Note ---
Date of Service February 01, 2021 Assessment & Plan (1) Acute UTI: Plan: gets suprapubic cath exchanged weekly by home RN Urinary catheter-associated UTI Urine culture from 01/16 with ESBL E. coli as well as Pseudomonas. continue Zosyn, needs 14 days per ID consult today is day 12 go home on Thursday (2) Acute hyponatremia: Plan: Yf=685 in ER. 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 (5) HLD (hyperlipidemia): Plan: Chronic -Continue Atorvastatin (6) Diabetes: Plan: Chronic. BCN=241 -Hold Metformin and Glipizide -Lantus with ISS, goal blood sugar 100 - 140 monitor for hypoglycemia, no episodes will give NPH with the higher dose of Prednisone this morning, increase to 40 units with higher dose of Prednisone (7) Quadriplegia: Plan: Baseline -Turn q 2 hours -Suprapubic catheter management -Continue Baclofen 25mg po TID -Continue Oxybutynin TID (8) Diarrhea: Plan: negative c diff Admission and Anticipated Discharge Date Admission Date: January 21, 2021 Subjective patient had some tachycardia, rigors and chills and sweats his catheter was not draining RN attempted to flush, no luck catheter is kinking when he sits up, he uses a thicker catheter at home urology assessed him at the bedside, replaced catheter, still kinking will work on getting one of his home catheters BP is well controlled with the Hydralazine eating well still having issues with his pemphigus, will increase his Prednisone further Review of Systems Review of Systems: All systems reviewed & are unremarkable except as noted in Subjective Physical Exam Constitutional: well developed, well nourished, + morbidly obese and comfortable; no acute distress Neck: trachea midline, no thyromegaly Respiratory: normal respiratory effort, lungs clear to auscultation Cardiovascular: RRR, no murmur, no edema Gastrointestinal (Abdomen): normal bowel sounds, soft, nontender, no hepatosplenomegaly Skin: + rash (pemphigus on legs, a little worse on arms today) Psychiatric: A+Ox3, euthymic affect Results & Data Results & Data ([facility]) Vital Signs (Past 12 Hours) Vital Signs Temp Pulse Resp BP BP Pulse Ox 02/01/21 12:11 86 16 112/75 98 02/01/21 07:42 101 H 02/01/21 07:29 36.4 C L 139 H 22 101/70 99 Laboratory Results Laboratory Results - last 24 hr 01/31/21 01/31/21 02/01/21 16:47 20:38 08:19 POC Glucose 172 H 235 H 153 H 02/01/21 12:10 POC Glucose 140 H Medications Administered Current Inpatient Medications Amlodipine Besylate (Amlodipine Besylate 5 Mg Tab) 10 mg PO DAILY [facility] Stop: 02/20/21 08:59 Last Admin: 02/01/21 08:59 Dose: 10 mg Documented by: Atorvastatin Calcium (Atorvastatin 20 Mg Tab) 20 mg PO HS [facility] Stop: 02/20/21 20:59 Last Admin: 01/31/21 21:43 Dose: 20 mg Documented by: Baclofen (Baclofen 10 Mg Tab) 25 mg PO TID [facility] Stop: 02/20/21 08:59 Last Admin: 02/01/21 09:00 Dose: 25 mg Documented by: Bisacodyl (Bisacodyl 10 Mg Supp) 20 mg HI Q2D@0900 [facility] Stop: 02/23/21 09:44 Last Admin: 02/01/21 09:02 Dose: Not Given Documented by: Clobetasol Propionate (Clobetasol Propionate 0.05% Oint 15 Gm Tube) 1 appln EXT BID PRN PRN Reason: Skin irritation Stop: 02/24/21 17:24 Last Admin: 01/27/21 17:43 Dose: 1 appln Documented by: Dextrose (Dextrose 50% 50 Ml Syringe) 25 - 50 ml IV UD PRN; Protocol PRN Reason: Hypoglycemia Protocol Stop: 02/20/21 04:21 Famotidine (Famotidine 40 Mg Tablet) 40 mg PO DAILY [facility] Stop: 02/20/21 08:59 Last Admin: 02/01/21 09:02 Dose: 40 mg Documented by: Folic Acid (Folic Acid 1 Mg Tab) 1 mg PO DAILY [facility] Stop: 02/20/21 08:59 Last Admin: 02/01/21 09:03 Dose: 1 mg Documented by: Glucagon (Glucagon For Inj 1 Mg Vial) 1 mg SQ UD PRN; Protocol PRN Reason: Hypoglycemia Protocol Stop: 02/20/21 04:21 Glucose (Glucose 10 Tabs/Tube) 4 - 8 tabs PO UD PRN; Protocol PRN Reason: Hypoglycemia Protocol Stop: 02/20/21 04:21 Glucose (Glucose 40% Gel 15 Gm Tube) 15 - 30 gm PO UD PRN; Protocol PRN Reason: Hypoglycemia Protocol Stop: 02/20/21 04:21 Heparin Sodium (Porcine) (Heparin Sod 5,000 Unit/0.5 Ml Vial) 5,000 units SQ Q8 [facility] Stop: 02/27/21 05:59 Last Admin: 02/01/21 05:38 Dose: 5,000 units Documented by: Hydralazine HCl (Hydralazine Hcl 20 Mg/Ml Vial) 10 mg IV Q6 PRN PRN Reason: Blood Pressure - High Stop: 02/28/21 15:29 Hydralazine HCl (Hydralazine Hcl 25 Mg Tab) 25 mg PO BID [facility] Stop: 03/02/21 08:59 Last Admin: 02/01/21 09:03 Dose: 25 mg Documented by: Piperacillin Sod/Tazobactam (Sod 4.5 gm/ Dextrose) 120 mls @ 30 mls/hr IV Q8H [facility]; Protocol Stop: 02/03/21 23:59 Last Infusion: 02/01/21 09:21 Dose: 0 mls/hr Documented by: Insulin Aspart (Insulin Aspart 100 Units/Ml 3 Ml Pen) 0 units SC ACHS [facility] Stop: 02/20/21 07:29 Last Admin: 02/01/21 08:52 Dose: 2 units Documented by: Insulin Human NPH (Insulin Human Nph) 30 units SC QAM [facility] Stop: 03/02/21 10:29 Last Admin: 02/01/21 09:08 Dose: 30 units Documented by: Lisinopril (Lisinopril 40 Mg Tab) 40 mg PO DAILY [facility] Stop: 02/20/21 08:59 Last Admin: 02/01/21 09:04 Dose: 40 mg Documented by: Methotrexate (Methotrexate Sodium 2.5 Mg Tab) 15 mg PO Q7D [facility] Stop: 02/24/21 08:59 Last Admin: 02/01/21 09:04 Dose: 15 mg Documented by: Miconazole Nitrate (Miconazole Nitrate Powder 43 Gm) 1 appln EXT PRN PRN PRN Reason: Affected Skin Folds Stop: 02/24/21 10:26 Last Admin: 01/27/21 17:44 Dose: 1 appln Documented by: Miscellaneous (Carbohydrates For Hypoglycemia ) 15 - 30 gm PO UD PRN PRN Reason: Hypoglycemia Protocol Stop: 02/20/21 04:21 Miscellaneous Information (Piperacill/Tazobac Consult Active) 1 ea N/A UD PRN PRN Reason: Consult Stop: 02/03/21 23:59 Oxybutynin Chloride (Oxybutynin Chloride 5 Mg Tab) 5 mg PO TID [facility] Stop: 02/20/21 08:59 Last Admin: 02/01/21 09:06 Dose: 5 mg Documented by: Potassium Chloride (Potassium Chloride Crtab 20 Meq Tabcr) 20 meq PO TID [facility] Stop: 02/26/21 20:59 Last Admin: 02/01/21 09:06 Dose: 20 meq Documented by: Prednisone (Prednisone 20 Mg Tab) 40 mg PO DAILY [facility] Stop: 03/03/21 08:59 Last Admin: 02/01/21 09:07 Dose: 40 mg Documented by: PG Care Time/CCT Total # of Minutes Spent Total Time Spent with Patient: Total time spent is greater than 50% in coordination of care (as documented) at patient's floor/unit and/or counseling patient: Coding Level of Care Code 94339 Subseq Hosp Care Lvl 3 Diagnoses Acute UTI N39.0 Acute hyponatremia E87.1 HTN (hypertension) I10 Pemphigus foliaceus L10.2 HLD (hyperlipidemia) E78.5 Diabetes E11.9 Quadriplegia G82.50 Diarrhea R19.7 Diarrhea type: unspecified type (1) Diarrhea Diarrhea type: unspecified type Qualified Code(s): R19.7 - Diarrhea, unspeci fied
[2021-02-01] MEDS: ATORVASTATIN 20 MG TAB PO SCH (22:09)
[2021-02-02] MEDS: PIPERACILLIN/TAZOBACTAM 4.5 GM in DEXTROSE 5% 100 ML IV SCH ×3 (05:20→22:25)
[2021-02-02] MEDS: HEPARIN SOD 5,000 UNIT/0.5 ML VIAL SQ SCH ×3 (05:22→22:14)
--- NOTE | 2021-02-02 06:40 | Electrocardiogram Report ---
Test Reason : Blood Pressure : / mmHG Vent. Rate : 101 BPM Atrial Rate : 101 BPM P-R Int : 160 ms QRS Dur : 092 ms QT Int : 338 ms P-R-T Axes : 062 024 092 degrees QTc Int : 438 ms Sinus tachycardia with occasional Premature ventricular complexes Nonspecific T wave abnormality Abnormal ECG When compared with ECG of 05-NOV-2020 07:14, Premature ventricular complexes are now Present Nonspecific T wave abnormality now evident in Lateral leads Confirmed by Maikel Gonzalez ([id number]) on 02/02/2021 6:40:19 AM Referred By: REFERRED SELF Confirmed By:Maikel Gonzalez
[2021-02-02] MEDS ORDERED: INSULIN HUMAN NPH SC SCH (09:00)
[2021-02-02] MEDS: INSULIN ASPART 100 UNITS/ML 3 ML PEN SC SCH ×4 (09:03→22:14)
[2021-02-02] MEDS: predniSONE 20 MG TAB PO SCH (09:38)
[2021-02-02] MEDS: hydrALAZINE HCL 25 MG TAB PO SCH ×2 (09:38→22:13)
[2021-02-02] MEDS: POTASSIUM CHLORIDE CRTAB 20 MEQ TABCR PO SCH ×3 (09:39→22:13)
[2021-02-02] MEDS: BACLOFEN 10 MG TAB PO SCH ×3 (09:40→22:13)
[2021-02-02] MEDS: FAMOTIDINE 40 MG TABLET PO SCH (09:40)
[2021-02-02] MEDS: amLODIPine BESYLATE 5 MG TAB PO SCH (09:41)
[2021-02-02] MEDS: lisinopril 40 MG TAB PO SCH (09:42)
[2021-02-02] MEDS: OXYBUTYNIN CHLORIDE 5 MG TAB PO SCH ×3 (09:42→22:13)
[2021-02-02] MEDS: FOLIC ACID 1 MG TAB PO SCH (09:43)
--- NOTE | 2021-02-02 15:12 | Hospitalist Progress Note ---
Date of Service February 02, 2021 Assessment & Plan (1) Acute UTI: Plan: gets suprapubic cath exchanged weekly by home RN Urinary catheter-associated UTI Urine culture from 01/16 with ESBL E. coli as well as Pseudomonas. continue Zosyn, needs 14 days per ID consult today is day 13 go home on Thursday (2) Acute hyponatremia: Plan: Ay=648 in ER. 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 (5) HLD (hyperlipidemia): Plan: Chronic -Continue Atorvastatin (6) Diabetes: Plan: Chronic. TZQ=325 -Hold Metformin and Glipizide -Lantus with ISS, goal blood sugar 100 - 140 monitor for hypoglycemia, no episodes will give NPH with the higher dose of Prednisone this morning, increase to 40 units with higher dose of Prednisone (7) Quadriplegia: Plan: Baseline -Turn q 2 hours -Suprapubic catheter management -Continue Baclofen 25mg po TID -Continue Oxybutynin TID (8) Diarrhea: Plan: negative c diff Admission and Anticipated Discharge Date Admission Date: January 21, 2021 Subjective patient doing really well, catheter is flowing, no more rigors/chills, not tachycardic his pemphigus is better on right arm, a little better on left arm discussed that he should 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 with 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 inspector 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, will make a referral he is eating well, figuring out where he can order food for celebratory dinner since he is going home tomorrow Review of Systems Review of Systems: All systems reviewed & are unremarkable except as noted in Subjective Integumentary: + rash (diffuse, pemphigus, better) Physical Exam Constitutional: well developed, well nourished, + morbidly obese and comfortable; no acute distress Neck: trachea midline, no thyromegaly Respiratory: normal respiratory effort, lungs clear to auscultation Cardiovascular: RRR, no murmur, no edema Gastrointestinal (Abdomen): normal bowel sounds, soft, nontender, no hepatosplenomegaly Skin: + rash (pemphigus, right arm clearing up, left arm is a little better) Psychiatric: A+Ox3, euthymic affect Results & Data Results & Data ([facility]) Vital Signs (Past 12 Hours) Vital Signs Temp Pulse Resp BP Pulse Ox 02/02/21 07:28 36.5 C 66 18 130/79 99 Laboratory Results Laboratory Results - last 24 hr 02/01/21 02/01/21 02/02/21 17:19 20:44 08:10 POC Glucose 232 H 208 H 140 H 02/02/21 12:26 POC Glucose 161 H Medications Administered Current Inpatient Medications Amlodipine Besylate (Amlodipine Besylate 5 Mg Tab) 10 mg PO DAILY SAHIL Stop: 02/20/21 08:59 Last Admin: 02/02/21 09:41 Dose: 10 mg Documented by: Atorvastatin Calcium (Atorvastatin 20 Mg Tab) 20 mg PO HS SAHIL Stop: 02/20/21 20:59 Last Admin: 02/01/21 22:09 Dose: 20 mg Documented by: Baclofen (Baclofen 10 Mg Tab) 25 mg PO TID SAHIL Stop: 02/20/21 08:59 Last Admin: 02/02/21 13:20 Dose: 25 mg Documented by: Bisacodyl (Bisacodyl 10 Mg Supp) 20 mg DC Q2D@0900 [facility] Stop: 02/23/21 09:44 Last Admin: 02/01/21 09:02 Dose: Not Given Documented by: Clobetasol Propionate (Clobetasol Propionate 0.05% Oint 15 Gm Tube) 1 appln EXT BID PRN PRN Reason: Skin irritation Stop: 02/24/21 17:24 Last Admin: 01/27/21 17:43 Dose: 1 appln Documented by: Dextrose (Dextrose 50% 50 Ml Syringe) 25 - 50 ml IV UD PRN; Protocol PRN Reason: Hypoglycemia Protocol Stop: 02/20/21 04:21 Famotidine (Famotidine 40 Mg Tablet) 40 mg PO DAILY SAHIL Stop: 02/20/21 08:59 Last Admin: 02/02/21 09:40 Dose: 40 mg Documented by: Folic Acid (Folic Acid 1 Mg Tab) 1 mg PO DAILY SAHIL Stop: 02/20/21 08:59 Last Admin: 02/02/21 09:43 Dose: 1 mg Documented by: Glucagon (Glucagon For Inj 1 Mg Vial) 1 mg SQ UD PRN; Protocol PRN Reason: Hypoglycemia Protocol Stop: 02/20/21 04:21 Glucose (Glucose 10 Tabs/Tube) 4 - 8 tabs PO UD PRN; Protocol PRN Reason: Hypoglycemia Protocol Stop: 02/20/21 04:21 Glucose (Glucose 40% Gel 15 Gm Tube) 15 - 30 gm PO UD PRN; Protocol PRN Reason: Hypoglycemia Protocol Stop: 02/20/21 04:21 Heparin Sodium (Porcine) (Heparin Sod 5,000 Unit/0.5 Ml Vial) 5,000 units SQ Q8 [facility]IL Stop: 02/27/21 05:59 Last Admin: 02/02/21 13:20 Dose: 5,000 units Documented by: Hydralazine HCl (Hydralazine Hcl 20 Mg/Ml Vial) 10 mg IV Q6 PRN PRN Reason: Blood Pressure - High Stop: 02/28/21 15:29 Hydralazine HCl (Hydralazine Hcl 25 Mg Tab) 25 mg PO BID [facility] Stop: 03/02/21 08:59 Last Admin: 02/02/21 09:38 Dose: 25 mg Documented by: Piperacillin Sod/Tazobactam (Sod 4.5 gm/ Dextrose) 120 mls @ 30 mls/hr IV Q8H [facility]; Protocol Stop: 02/03/21 23:59 Last Admin: 02/02/21 13:22 Dose: 30 mls/hr Documented by: Insulin Aspart (Insulin Aspart 100 Units/Ml 3 Ml Pen) 0 units SC ACHS [facility] Stop: 02/20/21 07:29 Last Admin: 02/02/21 12:46 Dose: 5 units Documented by: Insulin Human NPH (Insulin Human Nph) 40 units SC QAM [facility] Stop: 03/04/21 08:59 Last Admin: 02/02/21 09:08 Dose: 40 units Documented by: Lisinopril (Lisinopril 40 Mg Tab) 40 mg PO DAILY [facility] Stop: 02/20/21 08:59 Last Admin: 02/02/21 09:42 Dose: 40 mg Documented by: Methotrexate (Methotrexate Sodium 2.5 Mg Tab) 15 mg PO Q7D [facility] Stop: 02/24/21 08:59 Last Admin: 02/01/21 09:04 Dose: 15 mg Documented by: Miconazole Nitrate (Miconazole Nitrate Powder 43 Gm) 1 appln EXT PRN PRN PRN Reason: Affected Skin Folds Stop: 02/24/21 10:26 Last Admin: 01/27/21 17:44 Dose: 1 appln Documented by: Miscellaneous (Carbohydrates For Hypoglycemia ) 15 - 30 gm PO UD PRN PRN Reason: Hypoglycemia Protocol Stop: 02/20/21 04:21 Miscellaneous Information (Piperacill/Tazobac Consult Active) 1 ea N/A UD PRN PRN Reason: Consult Stop: 02/03/21 23:59 Oxybutynin Chloride (Oxybutynin Chloride 5 Mg Tab) 5 mg PO TID [facility]IL Stop: 02/20/21 08:59 Last Admin: 02/02/21 13:20 Dose: 5 mg Documented by: Potassium Chloride (Potassium Chloride Crtab 20 Meq Tabcr) 20 meq PO TID [facility] Stop: 02/26/21 20:59 Last Admin: 02/02/21 13:20 Dose: 20 meq Documented by: Prednisone (Prednisone 20 Mg Tab) 60 mg PO DAILY [facility] Stop: 03/04/21 08:59 Last Admin: 02/02/21 09:38 Dose: 60 mg Documented by: PG Care Time/CCT Total # of Minutes Spent Total Time Spent with Patient: Total time spent is greater than 50% in coordination of care (as documented) at patient's floor/unit and/or counseling patient: Coding Level of Care Code 50800 Subseq Hosp Care Lvl 2 Diagnoses Acute UTI N39.0 Acute hyponatremia E87.1 HTN (hypertension) I10 Pemphigus foliaceus L10.2 HLD (hyperlipidemia) E78.5 Diabetes E11.9 Quadriplegia G82.50 Diarrhea R19.7 Diarrhea type: unspecified type (1) Diarrhea Diarrhea type: unspecified type Qualified Code(s): R19.7 - Diarrhea, unspecified
[2021-02-02] MEDS ORDERED: PHARMACY GLYCEMIC MGMT CONSULT PRN (21:48)
[2021-02-02] MEDS: ATORVASTATIN 20 MG TAB PO SCH (22:13)
[2021-02-03] MEDS: INSULIN ASPART 100 UNITS/ML 3 ML PEN SC SCH ×4 (00:20→12:38)
--- NOTE | 2021-02-03 01:12 | Pharmacy Report ---
Pharmacy Glycemic Short Note 2 - Date of Service February 03, 2021 - Glycemic Short BSG Results (Last 24 hours): 02/02/21 02/02/21 02/02/21 08:10 12:26 16:44 POC Glucose 140 H 161 H 248 H 02/02/21 02/03/21 20:42 00:01 POC Glucose 350 H* 266 H OUTPATIENT ANTIDIABETIC REGIMEN: * Metformin 1000 mg PO BIDM * Glipizide 10 mg PO daily * HbA1c: 7% (10/27/20), reordered/pending ASSESSMENT: * SS is a 51 year old male originally admitted on 01/21/21 with acute hyponatremia * Pharmacy consulted for glycemic management evening of 02/03/21 for BSG of 350 mg/dL * Per RN, patient ate uncovered armenian food this evening, which likely explains the high * BSGs have been intermittently elevated over past couple of days (likely steroid-induced) * Will hold off on IV insulin at this time and utilize overnight checks with SC Novolog * Currently receiving increased dose of prednisone (60 mg) for pemphigus foliaceus * Plan is to taper after a few days, has been receiving NPH to cover steroids PLAN FOR INPATIENT GLYCEMIC CONTROL: * Hold outpatient oral diabetes medications * Basal insulin * NPH 40 units (~0.33 unit/kg) given with prednisone 60 mg today * Reassess in AM * Bolus insulin * NovoLog per scale ACHS or Q6hrs while NPO * Goal Range: Low 110 mg/dL - High 140 mg/dL * Correction Factor: 25 mg/dL/unit * Nutritional / Prandial insulin per carb ratio of 1 unit per 8 grams CHO consumed * 00,04 checks with same parameters PLAN FOR DISCHARGE: * tbd - will depend on steroid doses at discharge
[2021-02-03] MEDS: HEPARIN SOD 5,000 UNIT/0.5 ML VIAL SQ SCH (04:55)
[2021-02-03] MEDS: PIPERACILLIN/TAZOBACTAM 4.5 GM in DEXTROSE 5% 100 ML IV SCH (05:53)
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
[2021-02-03 08:52] LABS: BUN Creatinine Ratio 21.6 (10-20); Calcium 9.2 mg/dl (8.5-10.1); Creatinine Clr Calc Pharmacy 219.6 ml/min; Est GFR (African American) 146.6 ml/min; Est GFR (Non-African American) 126.5 ml/min
[2021-02-03] MEDS ORDERED: INSULIN HUMAN NPH SC SCH (09:00)
[2021-02-03] MEDS: amLODIPine BESYLATE 5 MG TAB PO SCH (09:26)
[2021-02-03] MEDS: FOLIC ACID 1 MG TAB PO SCH (09:27)
[2021-02-03] MEDS: FAMOTIDINE 40 MG TABLET PO SCH (09:27)
[2021-02-03] MEDS: lisinopril 40 MG TAB PO SCH (09:27)
[2021-02-03] MEDS: BACLOFEN 10 MG TAB PO SCH (09:27)
[2021-02-03] MEDS: OXYBUTYNIN CHLORIDE 5 MG TAB PO SCH (09:28)
[2021-02-03] MEDS: POTASSIUM CHLORIDE CRTAB 20 MEQ TABCR PO SCH (09:29)
[2021-02-03] MEDS: predniSONE 20 MG TAB PO SCH (09:30)
[2021-02-03] MEDS: hydrALAZINE HCL 25 MG TAB PO SCH (09:31)
[2021-02-03] MEDS: bisacodyL 10 MG SUPP PR SCH (12:37)
[2021-02-04 07:41] LABS: Estimated Average Glucose 146 mg/dl; Hemoglobin A1C 6.7 % (4.5-5.6)
== END 2021-02-03 13:19 | disposition home health service (06) | DRG 698 ==
LOC: ED 23:55 → SUATTDRO 01-21 01:47 → 2S 01-21 01:47 → 2N 01-21 20:01 → 3E 01-25 23:15

== ENCOUNTER 2021-04-26 23:45 | Inpatient (IN) ==
[2021-04-27 02:08] LABS: Basophils # (auto) 0.02 K/uL (0-0.2); Basophils % (auto) 0.2 %; Eosinophils # (auto) 0.29 K/uL (0-0.5); Eosinophils % (auto) 2.6 %; Hematocrit (blood only) 37.2 % (42-52); Hemoglobin 12.4 g/dL (14.0-18.0); Immature Granulocytes # (auto) 0.02 K/uL (0.00-0.02); Immature Granulocytes % (auto) 0.2 %; Lymphocytes # (auto) 1.69 K/uL (1.2-3.4); Lymphocytes % (auto) 15.2 %; Mean Corpuscular Hemoglobin 29.2 pg (25-34); Mean Corpuscular Hgb Conc 33.3 g/dL (32-36); Mean Corpuscular Volume 87.7 fL (80-100); Mean Platelet Volume 10.3 fL (7.4-10.4); Monocytes # (auto) 0.83 K/uL (0.11-0.59); Monocytes % (auto) 7.5 %; Neutrophils # (auto) 8.24 K/uL (1.4-6.5); Neutrophils % (auto) 74.3 %; Platelet Count 332 K/uL (130-400); RDW Coefficient of Variation 15.8 % (11.5-14.5); RDW Standard Deviation 50.5 fL (36.4-46.3); Red Blood Count 4.24 M/uL (4.7-6.1); White Blood Count 11.09 K/uL (4.8-10.8)
[2021-04-27 02:26] LABS: Albumin Level 3.2 gm/dl (3.4-5.0); BUN Creatinine Ratio 13.1 (10-20); Calcium 9.1 mg/dl (8.5-10.1); Creatinine Clr Calc Pharmacy 236.7 ml/min; Est GFR (African American) 147.9 ml/min; Est GFR (Non-African American) 127.6 ml/min; Potassium 3.5 mmol/L (3.5-5.1)
[2021-04-27 02:29] LABS: Albumin Globulin Ratio 0.9 (0.9-2); Bilirubin,Total 0.7 mg/dl (0.2-1); Globulin 3.5 gm/dl (2.5-4.0); Total Protein 6.7 gm/dl (6.4-8.2)
[2021-04-27 03:02] LABS: Appearance Urine Clear (Clear); Bacteria Urine Automated 2+ (Negative); Bilirubin Urine Negative (Negative); Blood Urine Negative (Negative); Color Urine Orange; Epithelial Cell Urine Auto 0-5 /lpf (0-5); Glucose Urine UA Negative (Negative); Ketones Urine Negative (Negative); Leukocyte Esterase Urine 3+ (Negative); Nitrite Urine Positive (Negative); Protein Urine Negative (Negative); RBC Urine Automated 0-4 /hpf (0-4); Specific Gravity Urine 1.008 (1.000-1.030); Urobilinogen Urine Negative (Negative); WBC Urine Automated >30 /hpf (0-5)
[2021-04-27 04:06] LABS: Partial Thromboplastin Time 25.1 Seconds (21.0-31.0); Prothrombin Time 9.7 Seconds (9.0-12.0)
[2021-04-27] MEDS ORDERED: PIPERACILLIN/TAZOBACTAM 4.5 GM/120 ML BAG IV ONE (04:20)
[2021-04-27] MEDS ORDERED: SODIUM CHLORIDE 0.9% 500 ML IV ONE (04:20)
[2021-04-27] MEDS ORDERED: PIPERACILL/TAZOBAC CONSULT ACTIVE PRN ×2 (04:20→13:00)
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
[2021-04-27] MEDS ORDERED: SODIUM CHLORIDE 0.9% 1000ML 1,000 ML IV ONE (05:20)
[2021-04-27] MEDS ORDERED: GLUCOSE 10 TABS/TUBE PO PRN (07:45)
[2021-04-27] MEDS ORDERED: ONDANSETRON INJ 2 MG/ML 2 ML VIAL IV PRN (07:45)
[2021-04-27] MEDS ORDERED: CARBOHYDRATES FOR HYPOGLYCEMIA PO PRN (07:45)
[2021-04-27] MEDS ORDERED: GLUCOSE 40% GEL 15 GM TUBE PO PRN (07:45)
[2021-04-27] MEDS ORDERED: DEXTROSE 50% 50 ML SYRINGE IV PRN (07:45)
[2021-04-27] MEDS ORDERED: GLUCAGON FOR INJ 1 MG VIAL SQ PRN (07:45)
[2021-04-27] MEDS ORDERED: ACETAMINOPHEN 325 MG TAB PO PRN (07:45)
--- NOTE | 2021-04-27 08:04 | XRay Report ---
XR chest 1V portable HISTORY: SEPSIS COMPARISON: Chest 10/26/2020. FINDINGS: The cardiac silhouette remains mildly enlarged. Cervical spinal fusion hardware is again no monique. No new focal lung consolidations to suggest pneumonia. No evidence for pulmonary edema. No pleur al effusions. No pneumothorax. IMPRESSION: No significant change compared to the prior study. No acute process. ACT 112: Negative or not required by law. Electronically signed by: Ángel Schafer M.D. 04/27/2021 8:02 AM
[2021-04-27] MEDS: SODIUM CHLORIDE 0.9% 500 ML IV SCH ×2 (09:02→09:44)
[2021-04-27] MEDS ORDERED: Nursing to Pharmacy Communication SCH (09:15)
[2021-04-27] MEDS ORDERED: SODIUM CHLORIDE 0.9% 1000ML 1,000 ML IV SCH (09:45)
[2021-04-27] MEDS: PIPERACILLIN/TAZOBACTAM 4.5 GM in DEXTROSE 5% 100 ML IV SCH ×2 (09:46→17:47)
[2021-04-27] MEDS: ENOXAPARIN INJ 40 MG/0.4 ML SYR SQ SCH ×2 (09:49→20:03)
[2021-04-27] MEDS: FOLIC ACID 1 MG TAB PO SCH (09:49)
[2021-04-27] MEDS: amLODIPine BESYLATE 5 MG TAB PO SCH (09:50)
[2021-04-27] MEDS: BACLOFEN 10 MG TAB PO SCH ×3 (09:50→20:02)
[2021-04-27] MEDS: FAMOTIDINE 40 MG TABLET PO SCH (09:50)
[2021-04-27] MEDS: lisinopril 40 MG TAB PO SCH (09:52)
[2021-04-27] MEDS: hydrALAZINE HCL 25 MG TAB PO SCH ×2 (09:52→20:03)
[2021-04-27] MEDS: metFORMIN HCL ER 500 MG TABCR PO SCH ×2 (09:53→15:53)
[2021-04-27] MEDS: OXYBUTYNIN CHLORIDE 5 MG TAB PO SCH ×3 (09:53→20:03)
[2021-04-27] MEDS: predniSONE 10 MG TABLET PO SCH (09:53)
--- NOTE | 2021-04-27 11:12 | Electrocardiogram Report ---
Test Reason : Blood Pressure : / mmHG Vent. Rate : 057 BPM Atrial Rate : 057 BPM P-R Int : 176 ms QRS Dur : 084 ms QT Int : 430 ms P-R-T Axes : 076 017 055 degrees QTc Int : 418 ms Poor data quality, interpretation may be adversely affected Sinus bradycardia Otherwise normal ECG When compared with ECG of 01-FEB-2021 07:41, Premature ventricular complexes are no longer Present Vent. rate has decreased BY 44 BPM Non-specific change in ST segment in Lateral leads Confirmed by Ben Rondon ([id number]) on 04/27/2021 11:12:06 AM Referred By: REFERRED SELF Confirmed By:Cholo Rondon
--- NOTE | 2021-04-27 18:06 | Communication Note ---
Date of Service: April 27, 2021 Patient seen and examined the same day as H&P therefore will not be billing for this encounter. No change to current plan.
--- NOTE | 2021-04-27 18:31 | Emergency Department Note ---
Impression & Plan [facility] Provider Note NAME: MARC PADILLA III AGE: 51 SEX: M ARRIVES VIA: Ambulance INFORMANT: Patient ED PROVIDER(S): Jaylene Umaña DO CHIEF COMPLAINT: Pressure in the bladder PLAN: [facility] Good MEDICAL DECISION MAKING: Patient describes urinary symptoms with pressure in his bladder over the past 2 to 3 days. He has since developed sweating and hot and cold flashes. Patient gives a history of some stooling that happened around his suprapubic catheter last week and despite cleaning it off with alcohol, he was worried about the possibility of infection. Urinalysis is positive for signs of infection. The patient has an elevated lactic acid. Patient was treated with IV antibiotics and normal saline here in the emergency department. [facility] for further management. Triage Nursing notes reviewed and agree with them. Prior medical records reviewed Vital Signs: reviewed and remarkable for bradycardia Differential diagnosis: Sepsis, UTI, pneumonia ER treatment provided: IV fluids, IV Zosyn Diagnostics interpreted by me: Cardiac Monitoring: Normal sinus rhythm at 68 Laboratory studies: See below Imaging studies: As per my interpretation Portable chest x-ray: No acute pulmonary infiltrate HPI: 51/M arrives for evaluation of possible UTI. The patient complains of pressure in his bladder and kidneys over the past 2 to 3 days. Patient describes having sweats and chills. The patient has a suprapubic catheter in place and describes having a stooling that covered the catheter sometime last week. They tried to clean the catheter with alcohol but were concerned about the possibility of infection. Patient denies any nausea or vomiting but has been having some diarrhea over the past couple of days. The patient is vaccinated for Covid ROS: See above HPI for pertinent positives & negatives. A total of 10 systems reviewed and were otherwise negative. PAST MEDICAL HISTORY:See Below PAST SURGICAL HISTORY:See Below FAMILY HISTORY:See Below SOCIAL HISTORY:See Below HOME MEDICATIONS:See list ALLERGIES:See list VITALS:See Below PHYSICAL EXAMINATION: HEENT: Head - normocephalic and atraumatic. Pupils are equal, round, and reactive to light. Extraocular eye muscles are intact, and sclera are anicteric. Nose - moist nasal mucosa without discharge. Mouth - moist buccal mucosa. Oropharynx is nonerythematous and there is no tonsillar exudate or edema noted. Neck: Supple; no JVD, nuchal rigidity, cervical lymphadenopathy, or auscultated bruits. Heart: Regular rate and rhythm. There is a normal S1 and S2 with no murmurs, clicks, or gallops appreciated. Lungs: Clear to auscultation bilaterally with no wheezes, rales, or rhonchi. Abdomen: Soft, completely nontender, nondistended, with good bowel sounds. There are no palpable pulsatile masses or hepatosplenomegaly. There is no guarding, rigidity, or rebound noted. Extremities: Legs are mildly edematous Skin: Pale, warm and dry with good turgor and no rashes. ED COURSE: Times/Reassessments: 0040: The patient was evaluated in room C 11. A complete history and physical was performed. A septic protocol was done. The patient was started on IV crystalloid therapy. A chest x-ray was performed. An order was placed for continuous cardiac monitoring. The patient was in a normal sinus rhythm at a rate of 68. A twe lve-lead EKG was obtained. Patient was given a dose of IV Zosyn. I kept the patient abreast of the results. Because of his history of significant urinary tract infections and sepsis, I felt the patient would require admission to the hospital on IV antibiotics. I discussed the case with the [facility] hospitalist group and they will evaluate for further management. Jaylene Umaña DO Past Med/Surg History Medical History Acute hyponatremia Acute UTI Bladder stone Diabetes Diarrhea Headache HLD (hyperlipidemia) HTN (hypertension) Hypertension Hyponatremia Ileus Lactic acidosis Nephrolithiasis Neurogenic bladder Osteomyelitis Pemphigoid Pemphigus foliaceus Sacral wound Suprapubic catheter UTI (urinary tract infection) due to urinary indwelling catheter Surgical History History of hip surgery History of suprapubic catheter Previous back surgery Family History Mother Cancer Father Diabetes Grandfather Diabetes Social History Smoking Status: Current every day smoker Second Hand Exposure: No; Do You Dip or Chew Tobacco: No; Tobacco Cessation Education Requested by Patient: No Hx Alcohol Use: No Hx Substance Use: No Preferred Language: Ghanaian Communication Ability: Effective Program Mgr Required: No Beliefs That Will Affect Care: None marital status: Single Current Living Situation: Alone Current Living Situation Comment: Typically lives alone with daily care provider, nain Barker Other Information That Helps Us Care for You: No Feels Safe at Home: No Is there a partner from a previous relationship who is making you feel unsafe now?: No Any Concerns about Your Family Situation: No Would You Like to Speak to Someone About Your Situation: No during the past year weight has: decreased > 10 lbs Assistive Devices: None Allergies Allergies Allergy/AdvReac Type Severity Reaction Status Date / Time Sulfa (Sulfonamide Allergy Severe Swelling Verified 04/27/21 00:16 Antibiotics) of Lip/Tongue/Throat Home Meds Home Medications Medication Instructions Recorded Confirmed amlodipine 10 mg tablet 10 mg PO DAILY 05/11/18 04/27/21 atorvastatin 20 mg tablet 20 mg PO HS 05/11/18 04/27/21 baclofen 10 mg tablet 25 mg PO TID 05/11/18 04/27/21 folic acid 1 mg tablet 1 mg PO [id number] 05/11/18 04/27/21 metformin 500 mg tablet,extended 1,000 mg PO AMPM 05/11/18 04/27/21 release 24 hr methotrexate sodium 2.5 mg tablet 15 mg PO WK 05/11/18 04/27/21 oxybutynin chloride 5 mg tablet 5 mg PO TID 05/11/18 04/27/21 famotidine 40 mg tablet 40 mg PO DAILY 03/30/20 04/27/21 glipizide 10 mg tablet, extended 10 mg PO QAM 10/26/20 04/27/21 release 24 hr methenamine hippurate 1 gram tablet 1 g PO BID 11/05/20 04/27/21 prednisone 5 mg tablet 10 mg PO DAILY 04/27/21 04/27/21 Previous Rx's Medication Instructions Recorded lisinopril 40 mg tablet 40 mg PO DAILY #30 tab 11/12/20 hydralazine 25 mg tablet 25 mg PO BID 30 Days #60 tab 02/03/21 Results & Data (ED) Vital Signs Vital Signs - 24 hr 04/26/21 23:53 04/27/21 00:01 04/27/21 00:55 Temperature 37.1 C Temperature Source Oral Pulse Rate 66 67 78 Pulse Rate from SpO2 Sensor 65 Pulse Rhythm Regular Pulse Strength Normal Respiratory Rate 26 H 17 18 Respiratory Effort / Characteristics Non-Labored Non-Labored Respiratory Depth Normal Blood Pressure 169/86 H 124/61 Blood Pressure Mean 113 82 Pulse Oximetry 98 98 97 Oxygen Delivery Method Room Air Room Air Sepsis Recent Fever Within 48 Hours No Sepsis New/Unexplained Change in Mental Status No Sepsis Action Taken by Nursing No Action Required 04/27/21 01:55 04/27/21 02:30 04/27/21 03:00 Temperature Temperature Source Pulse Rate 56 L 51 L Pulse Rate from SpO2 Sensor 52 L Pulse Rhythm Pulse Strength Respiratory Rate 17 16 Respiratory Effort / Characteristics Non-Labored Respiratory Depth Blood Pressure 113/63 Blood Pressure Mean 79 Pulse Oximetry 96 98 98 Oxygen Delivery Method Room Air Sepsis Recent Fever Within 48 Hours Sepsis New/Unexplained Change in Mental Status Sepsis Action Taken by Nursing 04/27/21 03:30 04/27/21 04:00 04/27/21 04:31 Temperature Temperature Source Pulse Rate 47 L 55 L 61 Pulse Rate from SpO2 Sensor 48 L 51 L 61 Pulse Rhythm Pulse Strength Respiratory Rate 4 L 19 13 Respiratory Effort / Characteristics Respiratory Depth Blood Pressure 128/77 Blood Pressure Mean 94 Pulse Oximetry 97 94 98 Oxygen Delivery Method Sepsis Recent Fever Within 48 Hours Sepsis New/Unexplained Change in Mental Status Sepsis Action Taken by Nursing 04/27/21 05:00 04/27/21 05:30 Temperature Temperature Source Pulse Rate 57 L 59 L Pulse Rate from SpO2 Sensor 57 L 63 Pulse Rhythm Pulse Strength Respiratory Rate 18 15 Respiratory Effort / Characteristics Non-Labored Respiratory Depth Blood Pressure 159/78 H Blood Pressure Mean 105 Pulse Oximetry 96 93 Oxygen Delivery Method Room Air Sepsis Recent Fever Within 48 Hours Sepsis New/Unexplained Change in Mental Status Sepsis Action Taken by Nursing Laboratory Data Result diagrams: 04/27/21 01:54 04/27/21 01:54 Lab Results 04/27/21 04/27/21 04/27/21 Range/Units 00:40 01:54 01:54 WBC 11.09 H (4.8-10.8) K/uL RBC 4.24 L (4.7-6.1) M/uL Hgb 12.4 L (14.0-18.0) g/dL Hct 37.2 L (42-52) % MCV 87.7 (80-100) fL MCH 29.2 (25-34) pg MCHC 33.3 (32-36) g/dL RDW Std Deviation 50.5 H (36.4-46.3) fL RDW Coeff of Sandor 15.8 H (11.5-14.5) % Plt Count 332 (130-400) K/uL MPV 10.3 (7.4-10.4) fL Immature Gran % (Auto) 0.2 % Neut % (Auto) 74.3 % Lymph % (Auto) 15.2 % [place] % (Auto) 7.5 % Eos % (Auto) 2.6 % Baso % (Auto) 0.2 % Neut # (Auto) 8.24 H (1.4-6.5) K/uL Lymph # (Auto) 1.69 (1.2-3.4) K/uL [place] # (Auto) 0.83 H (0.11-0.59) K/uL Eos # (Auto) 0.29 (0-0.5) K/uL Baso # (Auto) 0.02 (0-0.2) K/uL Immature Gran # (Auto) 0.02 (0.00-0.02) K/uL PT (9.0-12.0) Seconds INR (0.9-1.1) APTT (21.0-31.0) Seconds PTT Ratio Sodium 134 L (136-145) mmol/L Potassium 3.5 (3.5-5.1) mmol/L Chloride 102 (98-107) mmol/L Carbon Dioxide 25 (21-32) mmol/L Anion Gap 7.0 (3-11) BUN 6 L (7-18) mg/dl Creatinine 0.48 L (0.6-1.4) mg/dl Est Cr Clr Drug Dosing 236.7 ml/min Est GFR ( Amer) 147.9 ml/min Est GFR (Non-Af Amer) 127.6 ml/min BUN/Creatinine Ratio 13.1 (10-20) Glucose 78 (70-99) mg/dl Lactate (0.4-2.0) mmol/L Calcium 9.1 (8.5-10.1) mg/dl Magnesium 2.0 (1.8-2.4) mg/dl Total Bilirubin 0.7 (0.2-1) mg/dl AST 12 L (15-37) U/L ALT 18 (12-78) U/L Alkaline Phosphatase 63 (45-117) U/L Total Protein 6.7 (6.4-8.2) gm/dl Albumin 3.2 L (3.4-5.0) gm/dl Globulin 3.5 (2.5-4.0) gm/dl Albumin/Globulin Ratio 0.9 (0.9-2) Urine Color [place] Urine Appearance Clear (Clear) Urine pH 7.0 (4.5-7.5) Ur Specific [place] 1.008 (1.000-1.030) Urine Protein Negative (Negative) Urine Glucose (UA) Negative (Negative) Urine Ketones Negative (Negative) Urine Blood Negative (Negative) Urine Nitrite Positive A (Negative) Urine Bilirubin Negative (Negative) Urine Urobilinogen Negative (Negative) Ur Leukocyte Esterase 3+ H (Negative) Urine WBC (Auto) >30 H (0-5) /hpf Urine RBC (Auto) 0-4 (0-4) /hpf U Hyaline Cast (Auto) 5-10 H (0-5) /lpf U Epithel Cells (Auto) 0-5 (0-5) /lpf Urine Bacteria (Auto) 2+ H (Negative) COVID-19 Eval Order SARS-CoV-2 (PCR) (Negative) 04/27/21 04/27/21 04/27/21 Range/Units 01:54 02:13 02:13 WBC (4.8-10.8) K/uL RBC (4.7-6.1) M/uL Hgb (14.0-18.0) g/dL Hct (42-52) % MCV (80-100) fL MCH (25-34) pg MCHC (32-36) g/dL RDW Std Deviation (36.4-46.3) fL RDW Coeff of Sandor (11.5-14.5) % Plt Count (130-400) K/uL MPV (7.4-10.4) fL Immature Gran % (Auto) % Neut % (Auto) % Lymph % (Auto) % [place] % (Auto) % Eos % (Auto) % Baso % (Auto) % Neut # (Auto) (1.4-6.5) K/uL Lymph # (Auto) (1.2-3.4) K/uL [place] # (Auto) (0.11-0.59) K/uL Eos # (Auto) (0-0.5) K/uL Baso # (Auto) (0-0.2) K/uL Immature Gran # (Auto) (0.00-0.02) K/uL PT (9.0-12.0) Seconds INR (0.9-1.1) APTT (21.0-31.0) Seconds PTT Ratio Sodium (136-145) mmol/L Potassium (3.5-5.1) mmol/L Chloride (98-107) mmol/L Carbon Dioxide (21-32) mmol/L Anion Gap (3-11) BUN (7-18) mg/dl Creatinine (0.6-1.4) mg/dl Est Cr Clr Drug Dosing ml/min Est GFR ( Amer) ml/min Est GFR (Non-Af Amer) ml/min BUN/Creatinine Ratio (10-20) Glucose (70-99) mg/dl Lactate 2.2 H* (0.4-2.0) mmol/L Calcium (8.5-10.1) mg/dl Magnesium (1.8-2.4) mg/dl Total Bilirubin (0.2-1) mg/dl AST (15-37) U/L ALT (12-78) U/L Alkaline Phosphatase (45-117) U/L Total Protein (6.4-8.2) gm/dl Albumin (3.4-5.0) gm/dl Globulin (2.5-4.0) gm/dl Albumin/Globulin Ratio (0.9-2) Urine Color Urine Appearance (Clear) Urine pH (4.5-7.5) Ur Specific [place] (1.000-1.030) Urine Protein (Negative) Urine Glucose (UA) (Negative) Urine Ketones (Negative) Urine Blood (Negative) Urine Nitrite (Negative) Urine Bilirubin (Negative) Urine Urobilinogen (Negative) Ur Leukocyte Esterase (Negative) Urine WBC (Auto) (0-5) /hpf Urine RBC (Auto) (0-4) /hpf U Hyaline Cast (Auto) (0-5) /lpf U Epithel Cells (Auto) (0-5) /lpf Urine Bacteria (Auto) (Negative) COVID-19 Eval Order Covid19 at [facility] SARS-CoV-2 (PCR) NEGATIVE (Negative) 04/27/21 04/27/21 Range/Units 03:41 03:44 WBC (4.8-10.8) K/uL RBC (4.7-6.1) M/uL Hgb (14.0-18.0) g/dL Hct (42-52) % MCV (80-100) fL MCH (25-34) pg MCHC (32-36) g/dL RDW Std Deviation (36.4-46.3) fL RDW Coeff of Sandor (11.5-14.5) % Plt Count (130-400) K/uL MPV (7.4-10.4) fL Immature Gran % (Auto) % Neut % (Auto) % Lymph % (Auto) % [place] % (Auto) % Eos % (Auto) % Baso % (Auto) % Neut # (Auto) (1.4-6.5) K/uL Lymph # (Auto) (1.2-3.4) K/uL [place] # (Auto) (0.11-0.59) K/uL Eos # (Auto) (0-0.5) K/uL Baso # (Auto) (0-0.2) K/uL Immature Gran # (Auto) (0.00-0.02) K/uL PT 9.7 (9.0-12.0) Seconds INR 1.0 (0.9-1.1) APTT 25.1 (21.0-31.0) Seconds PTT Ratio 1.0 Sodium (136-145) mmol/L Potassium (3.5-5.1) mmol/L Chloride (98-107) mmol/L Carbon Dioxide (21-32) mmol/L Anion Gap (3-11) BUN (7-18) mg/dl Creatinine (0.6-1.4) mg/dl Est Cr Clr Drug Dosing ml/min Est GFR ( Amer) ml/min Est GFR (Non-Af Amer) ml/min BUN/Creatinine Ratio (10-20) Glucose (70-99) mg/dl Lactate 1.7 (0.4-2.0) mmol/L Calcium (8.5-10.1) mg/dl Magnesium (1.8-2.4) mg/dl Total Bilirubin (0.2-1) mg/dl AST (15-37) U/L ALT (12-78) U/L Alkaline Phosphatase (45-117) U/L Total Protein (6.4-8.2) gm/dl Albumin (3.4-5.0) gm/dl Globulin (2.5-4.0) gm/dl Albumin/Globulin Ratio (0.9-2) Urine Color Urine Appearance (Clear) Urine pH (4.5-7.5) Ur Specific [place] (1.000-1.030) Urine Protein (Negative) Urine Glucose (UA) (Negative) Urine Ketones (Negative) Urine Blood (Negative) Urine Nitrite (Negative) Urine Bilirubin (Negative) Urine Urobilinogen (Negative) Ur Leukocyte Esterase (Negative) Urine WBC (Auto) (0-5) /hpf Urine RBC (Auto) (0-4) /hpf U Hyaline Cast (Auto) (0-5) /lpf U Epithel Cells (Auto) (0-5) /lpf Urine Bacteria (Auto) (Negative) COVID-19 Eval Order SARS-CoV-2 (PCR) (Negative) Administered Medications Amlodipine Besylate (Amlodipine Besylate 5 Mg Tab) 10 mg PO DAILY SAHIL Stop: 05/27/21 08:59 Last Admin: 04/27/21 09:50 Dose: 10 mg Documented by: [id number] Atorvastatin Calcium (Atorvastatin 20 Mg Tab) 20 mg PO HS SAHIL Stop: 05/27/21 20:59 Last Admin: 04/27/21 20:02 Dose: 20 mg Documented by: [id number] Baclofen (Baclofen 10 Mg Tab) 25 mg PO TID SAHIL Stop: 05/27/21 08:59 Last Admin: 04/27/21 20:02 Dose: 25 mg Documented by: [id number] Admin: 04/27/21 15:53 Dose: 25 mg Documented by: [id number] Admin: 04/27/21 09:50 Dose: 25 mg Documented by: [id number] Betamethasone Dipropion Augmented (Betamethasone Dip Aug (Diprolene) 0.05% Cr 15 Gm Tube) 1 appln EXT Q12H PRN PRN Reason: Rash Stop: 05/27/21 17:58 Last Admin: 04/27/21 20:03 Dose: 1 appln Documented by: [id number] Enoxaparin Sodium (Enoxaparin Inj 40 Mg/0.4 Ml Syr) 40 mg SQ Q12H [facility] Stop: 05/27/21 08:59 Last Admin: 04/27/21 20:03 Dose: 40 mg Documented by: [id number] Admin: 04/27/21 09:49 Dose: 40 mg Documented by: [id number] Famotidine (Famotidine 40 Mg Tablet) 40 mg PO DAILY [facility] Stop: 05/27/21 08:59 Last Admin: 04/27/21 09:50 Dose: 40 mg Documented by: [id number] Folic Acid (Folic Acid 1 Mg Tab) 1 mg PO [id number] [facility] Stop: 05/27/21 08:59 Last Admin: 04/27/21 09:49 Dose: 1 mg Documented by: [id number] Hydralazine HCl (Hydralazine Hcl 25 Mg Tab) 25 mg PO BID [facility] Stop: 05/27/21 08:59 Last Admin: 04/27/21 20:03 Dose: 25 mg Documented by: [id number] Admin: 04/27/21 09:52 Dose: 25 mg Documented by: [id number] Piperacillin Sod/Tazobactam (Sod 4.5 gm/ Dextrose) 120 mls @ 30 mls/hr IV Q8H [facility]; Protocol Stop: 05/07/21 09:59 Last Infusion: 04/28/21 06:47 Dose: 0 mls/hr Documented by: [id number] Admin: 04/28/21 02:42 Dose: 30 mls/hr Documented by: [id number] Infusion: 04/27/21 21:42 Dose: 0 mls/hr Documented by: [id number] Admin: 04/27/21 17:47 Dose: 30 mls/hr Documented by: [id number] Infusion: 04/27/21 15:06 Dose: 0 mls/hr Documented by: [id number] Admin: 04/27/21 09:46 Dose: 30 mls/hr Documented by: [id number] Lisinopril (Lisinopril 40 Mg Tab) 40 mg PO DAILY [facility] Stop: 05/27/21 08:59 Last Admin: 04/27/21 09:52 Dose: 40 mg Documented by: [id number] Metformin HCl (Metformin Hcl Er 500 Mg Tabcr) 1,000 mg PO BIDM [facility] Stop: 05/27/21 08:14 Last Admin: 04/27/21 15:53 Dose: 1,000 mg Documented by: [id number] Admin: 04/27/21 09:53 Dose: 1,000 mg Documented by: [id number] Oxybutynin Chloride (Oxybutynin Chloride 5 Mg Tab) 5 mg PO TID [facility]HIL Stop: 05/27/21 08:59 Last Admin: 04/27/21 20:03 Dose: 5 mg Documented by: [id number] Admin: 04/27/21 15:53 Dose: 5 mg Documented by: [id number] Admin: 04/27/21 09:53 Dose: 5 mg Documented by: [id number] Prednisone (Prednisone 10 Mg Tablet) 10 mg PO DAILY [facility] Stop: 05/27/21 08:59 Last Admin: 04/27/21 09:53 Dose: 10 mg Documented by: [id number] Discontinued Medications Sodium Chloride (Nss) 500 mls @ 999 mls/hr IV .Q31M ONE Stop: 04/27/21 04:50 Last Infusion: 04/27/21 06:56 Dose: 0 mls/hr Documented by: [id number] Admin: 04/27/21 05:04 Dose: 999 mls/hr Documented by: [id number] Sodium Chloride (Nss) 500 mls @ 125 mls/hr IV .Q4H [facility] Stop: 05/27/21 04:29 Last Admin: 04/27/21 09:44 Dose: Not Given Documented by: [id number] Admin: 04/27/21 09:02 Dose: Not Given Documented by: [id number] Piperacillin Sod/Tazobactam Sod (Zosyn) 4.5 gm in 120 mls @ 240 mls/hr IV NOW ONE Stop: 04/27/21 04:49 Last Infusion: 04/27/21 05:34 Dose: 0 mls/hr Documented by: [id number] Admin: 04/27/21 05:04 Dose: 240 mls/hr Documented by: [id number] Sodium Chloride (Nss 1000ml) 1,000 mls @ 999 mls/hr IV .Q1H1M ONE Stop: 04/27/21 06:20 Last Admin: 04/27/21 09:02 Dose: Not Given Documented by: [id number] Sodium Chloride (Nss 1000ml) 1,000 mls @ 125 mls/hr IV .Q8H [facility] Stop: 05/27/21 04:29 Last Infusion: 04/27/21 14:20 Dose: 0 mls/hr Documented by: [id number] Admin: 04/27/21 09:46 Dose: 125 mls/hr Documented by: [id number] Imaging Data Radiologist's Impression: Chest X-Ray 04/27/21 00:55 XR chest 1V portable HISTORY: SEPSIS COMPARISON: Chest 10/26/2020. FINDINGS: The cardiac silhouette remains mildly enlarged. Cervical spinal fusion hardware is again noted. No new focal lung consolidations to suggest pneumonia. No evidence for pulmonary edema. No pleural effusions. No pneumothorax. IMPRESSION: No significant change compared to the prior study. No acute process. ACT 112: Negative or not required by law. Electronically signed by: Ángel Schafer M.D. 04/27/2021 8:02 AM Discharge Plan Visit Data Chief Complaint: Urinary Symptoms Stated Complaint: URINARY SYMPTOMS ED Provider: Jaylene Umaña Discharge Problem: Acute UTI Patient Disposition: Admitted As Inpatient Discharge Instructions Interventions: ED Discharge Assessment Last Done: 04/27/21 06:58
[2021-04-27] MEDS: ATORVASTATIN 20 MG TAB PO SCH (20:02)
[2021-04-27] MEDS: BETAMETHASONE DIP AUG (DIPROLENE) 0.05% CR 15 GM TUBE EXT PRN (20:03)
--- NOTE | 2021-04-27 21:11 | Billing Data ---
Date of Service April 27, 2021 Coding Level of Care Code 58231 Initial Inpt Care Lvl 3
[2021-04-28] MEDS: PIPERACILLIN/TAZOBACTAM 4.5 GM in DEXTROSE 5% 100 ML IV SCH ×2 (02:42→08:13)
[2021-04-28 08:05] LABS: Basophils # (auto) 0.02 K/uL (0-0.2); Basophils % (auto) 0.2 %; Eosinophils # (auto) 0.78 K/uL (0-0.5); Hematocrit (blood only) 36.7 % (42-52); Immature Granulocytes # (auto) 0.03 K/uL (0.00-0.02); Immature Granulocytes % (auto) 0.3 %; Lymphocytes # (auto) 0.98 K/uL (1.2-3.4); Mean Corpuscular Hemoglobin 29.3 pg (25-34); Mean Corpuscular Hgb Conc 32.7 g/dL (32-36); Mean Corpuscular Volume 89.5 fL (80-100); Mean Platelet Volume 10.5 fL (7.4-10.4); Monocytes % (auto) 6.1 %; Neutrophils # (auto) 7.38 K/uL (1.4-6.5); Neutrophils % (auto) 75.4 %; Platelet Count 296 K/uL (130-400); RDW Standard Deviation 52.4 fL (36.4-46.3); White Blood Count 9.79 K/uL (4.8-10.8)
[2021-04-28] MEDS: BACLOFEN 10 MG TAB PO SCH ×3 (08:09→21:13)
[2021-04-28] MEDS: OXYBUTYNIN CHLORIDE 5 MG TAB PO SCH ×3 (08:10→21:14)
[2021-04-28] MEDS: ENOXAPARIN INJ 40 MG/0.4 ML SYR SQ SCH ×2 (08:10→21:15)
[2021-04-28] MEDS: hydrALAZINE HCL 25 MG TAB PO SCH ×2 (08:10→21:14)
[2021-04-28] MEDS: BETAMETHASONE DIP AUG (DIPROLENE) 0.05% CR 15 GM TUBE EXT PRN (08:10)
[2021-04-28] MEDS: FAMOTIDINE 40 MG TABLET PO SCH (08:11)
[2021-04-28] MEDS: metFORMIN HCL ER 500 MG TABCR PO SCH ×2 (08:11→17:34)
[2021-04-28] MEDS: predniSONE 10 MG TABLET PO SCH (08:11)
[2021-04-28] MEDS: amLODIPine BESYLATE 5 MG TAB PO SCH (08:11)
[2021-04-28] MEDS: FOLIC ACID 1 MG TAB PO SCH (08:11)
[2021-04-28] MEDS: lisinopril 40 MG TAB PO SCH (08:11)
[2021-04-28 08:43] LABS: BUN Creatinine Ratio 15.1 (10-20); Calcium 8.9 mg/dl (8.5-10.1); Creatinine Clr Calc Pharmacy 241.8 ml/min; Est GFR (African American) 149.2 ml/min; Est GFR (Non-African American) 128.7 ml/min; Potassium 3.6 mmol/L (3.5-5.1)
[2021-04-28] MEDS ORDERED: bisacodyL 10 MG SUPP PR STA (10:49)
[2021-04-28] MEDS ORDERED: bisacodyL 10 MG SUPP PR ONE (10:53)
[2021-04-28] MEDS ORDERED: MEROPENEM CONSULT ACTIVE PRN (12:03)
[2021-04-28] MEDS ORDERED: predniSONE 50 MG TAB PO ONE (12:30)
[2021-04-28] MEDS: POLYETHYLENE (MIRALAX) 17 GM PACK PO PRN (13:08)
[2021-04-28] MEDS: MEROPENEM 500 MG in SYRINGE 0 ML IV SCH ×2 (13:08→21:12)
[2021-04-28 13:43] LABS: Appearance Urine Clear (Clear); Bacteria Urine Automated Negative (Negative); Bilirubin Urine Negative (Negative); Blood Urine Negative (Negative); Color Urine Yellow; Epithelial Cell Urine Auto 0-5 /lpf (0-5); Glucose Urine UA Negative (Negative); Ketones Urine Trace (Negative); Leukocyte Esterase Urine 2+ (Negative); Nitrite Urine Positive (Negative); Protein Urine Negative (Negative); RBC Urine Automated 0-4 /hpf (0-4); Specific Gravity Urine 1.009 (1.000-1.030); Urobilinogen Urine Negative (Negative); pH Urine 6.5 (4.5-7.5)
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
[2021-04-28] MEDS: ATORVASTATIN 20 MG TAB PO SCH (21:13)
[2021-04-29] MEDS: MEROPENEM 500 MG in SYRINGE 0 ML IV SCH ×3 (05:38→18:11)
[2021-04-29 08:08] LABS: Basophils # (auto) 0.02 K/uL (0-0.2); Basophils % (auto) 0.2 %; Eosinophils # (auto) 0.22 K/uL (0-0.5); Eosinophils % (auto) 2.1 %; Hematocrit (blood only) 38.5 % (42-52); Hemoglobin 12.6 g/dL (14.0-18.0); Immature Granulocytes # (auto) 0.02 K/uL (0.00-0.02); Immature Granulocytes % (auto) 0.2 %; Lymphocytes # (auto) 1.21 K/uL (1.2-3.4); Lymphocytes % (auto) 11.8 %; Mean Corpuscular Hemoglobin 29.1 pg (25-34); Mean Corpuscular Hgb Conc 32.7 g/dL (32-36); Mean Corpuscular Volume 88.9 fL (80-100); Mean Platelet Volume 10.7 fL (7.4-10.4); Monocytes % (auto) 8.8 %; Neutrophils % (auto) 76.9 %; Platelet Count 341 K/uL (130-400); RDW Coefficient of Variation 15.6 % (11.5-14.5); RDW Standard Deviation 50.5 fL (36.4-46.3); Red Blood Count 4.33 M/uL (4.7-6.1); White Blood Count 10.27 K/uL (4.8-10.8)
[2021-04-29] MEDS: OXYBUTYNIN CHLORIDE 5 MG TAB PO SCH ×3 (08:26→20:50)
[2021-04-29] MEDS: hydrALAZINE HCL 25 MG TAB PO SCH ×2 (08:27→20:51)
[2021-04-29] MEDS: BACLOFEN 10 MG TAB PO SCH ×3 (08:27→20:52)
[2021-04-29] MEDS: amLODIPine BESYLATE 5 MG TAB PO SCH (08:28)
[2021-04-29] MEDS: metFORMIN HCL ER 500 MG TABCR PO SCH (08:28)
[2021-04-29 08:29] LABS: BUN Creatinine Ratio 21.9 (10-20); Blood Urea Nitrogen 10 mg/dl (7-18); Calcium 9.8 mg/dl (8.5-10.1); Carbon Dioxide 24 mmol/L (21-32); Chloride 102 mmol/L (98-107); Creatinine Clr Calc Pharmacy 264.2 ml/min; Est GFR (African American) > 150.0 ml/min; Est GFR (Non-African American) 133.5 ml/min; Glucose 127 mg/dl (70-99); Potassium 3.5 mmol/L (3.5-5.1); Sodium 136 mmol/L (136-145)
[2021-04-29] MEDS: FAMOTIDINE 40 MG TABLET PO SCH (08:29)
[2021-04-29] MEDS: lisinopril 40 MG TAB PO SCH (08:29)
[2021-04-29] MEDS: predniSONE 10 MG TABLET PO SCH (08:29)
[2021-04-29] MEDS: ENOXAPARIN INJ 40 MG/0.4 ML SYR SQ SCH ×2 (08:30→20:52)
[2021-04-29] MEDS: FOLIC ACID 1 MG TAB PO SCH (08:30)
[2021-04-29] MEDS ORDERED: predniSONE 20 MG TAB PO STA (17:33)
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
[2021-04-29] MEDS: ATORVASTATIN 20 MG TAB PO SCH (20:51)
--- NOTE | 2021-04-29 23:06 | CT Scan Report ---
CT SCAN OF THE ABDOMEN AND PELVIS WITHOUT IV CONTRAST CLINICAL HISTORY: Bilateral flank pain. Urinary tract infection. COMPARISON STUDY: Abdominal CT dated 11/05/2020. TECHNIQUE: CT scan of the abdomen and pelvis is performed from the lung bases to the proximal femora. Images are reviewed in the axial, sagittal, and coronal planes. IV contrast was not administered for this examination. A dose lowering technique was utilized adhering to the principles of ALARA. CT DOSE: 1919.55 mGy.cm FINDINGS: Lung bases: The heart is normal in size and without pericardial effusion. The lung bases are clear. T here is a small hiatal hernia. Liver: The unenhanced liver is enlarged, measuring 19.1 cm in length. The liver is otherwise normal i n contour and attenuation. There is no intrahepatic biliary ductal dilatation. Gallbladder: Unremarkable. Spleen: Normal in size and attenuation. Pancreas: There is heterogeneous atrophy of the pancreas. The unenhanced pancreas is otherwise grossl y unremarkable. Adrenal glands: Unremarkable. Kidneys: The unenhanced kidneys are atrophic and without hydronephrosis. There are least 5 nonobstruc ting right renal calculi which measure up to 4 mm. No left renal calculi are seen and there is no ure teral stone0. There is no evidence of contour deforming renal mass lesion. Abdominal vasculature: The abdominal aorta is normal in course and caliber noting moderate atheroscle rotic calcification. Bowel: There is moderate colonic fecal retention and diffuse gaseous distention of the colon, which m easures up to 7.8 cm in diameter. The small bowel loops are normal in caliber. The appendix is well- visualized and normal. Peritoneum: There is no intraperitoneal free air or abdominal ascites. Lymphadenopathy: None. Pelvic viscera: The bladder is decompressed around a suprapubic catheter and not well assessed. The p rostate gland is diminutive versus surgically absent. Skeletal structures: The skeletal structures are osteopenic. There is moderate lumbosacral spondylosi s. Bilateral pars defects are seen at L5. No lytic or blastic lesions are seen. A bone graft donor si te is suggested in the right ilium. Bony overgrowth along the greater trochanter of the left femur is unchanged. Soft tissues: A decubitus ulcer is again seen below the left ischial tuberosity on axial image #477. There may also be a decubitus ulcer overlying the sacrum. There is diffuse fatty atrophy of the pelvi c musculature. IMPRESSION: 1. There is diffuse gaseous distention of the colon and moderate constipation. This may represent col onic ileus. A distal colonic/rectal obstruction is considered less likely and clinical correlation wi ll be required. 2. The bladder is decompressed around a suprapubic catheter and not well evaluated. 3. The kidneys demonstrate cortical atrophy and are without hydronephrosis. 4. Right-sided nephrolithiasis. 5. A decubitus ulcer is again seen below the left ischial tuberosity. There may also be a decubitus u lcer overlying the sacrum. 6. Additional findings as above. ACT 112: Negative or not required by law. Electronically signed by: Bartolome Mckay M.D. 04/29/2021 11:05 PM
[2021-04-30] MEDS: MEROPENEM 500 MG in SYRINGE 0 ML IV SCH ×5 (00:25→23:47)
[2021-04-30] MEDS: INSULIN ASPART 100 UNITS/ML 3 ML PEN SC SCH ×4 (08:17→20:45)
[2021-04-30] MEDS: BACLOFEN 10 MG TAB PO SCH ×3 (08:18→20:41)
[2021-04-30] MEDS: ENOXAPARIN INJ 40 MG/0.4 ML SYR SQ SCH ×2 (08:20→20:40)
[2021-04-30] MEDS: FOLIC ACID 1 MG TAB PO SCH (08:21)
[2021-04-30] MEDS: lisinopril 40 MG TAB PO SCH (08:22)
[2021-04-30] MEDS: hydrALAZINE HCL 25 MG TAB PO SCH ×2 (08:23→20:41)
[2021-04-30] MEDS: FAMOTIDINE 40 MG TABLET PO SCH (08:23)
[2021-04-30] MEDS: amLODIPine BESYLATE 5 MG TAB PO SCH (08:24)
[2021-04-30] MEDS: OXYBUTYNIN CHLORIDE 5 MG TAB PO SCH ×3 (08:24→20:41)
[2021-04-30 08:46] LABS: Basophils # (auto) 0.01 K/uL (0-0.2); Basophils % (auto) 0.1 %; Eosinophils # (auto) 0.06 K/uL (0-0.5); Eosinophils % (auto) 0.6 %; Hematocrit (blood only) 36.3 % (42-52); Hemoglobin 12.2 g/dL (14.0-18.0); Immature Granulocytes # (auto) 0.02 K/uL (0.00-0.02); Immature Granulocytes % (auto) 0.2 %; Lymphocytes % (auto) 11.4 %; Mean Corpuscular Hemoglobin 29.3 pg (25-34); Mean Corpuscular Hgb Conc 33.6 g/dL (32-36); Mean Corpuscular Volume 87.1 fL (80-100); Mean Platelet Volume 10.5 fL (7.4-10.4); Monocytes % (auto) 6.6 %; Neutrophils # (auto) 8.55 K/uL (1.4-6.5); Neutrophils % (auto) 81.1 %; Platelet Count 344 K/uL (130-400); RDW Coefficient of Variation 15.5 % (11.5-14.5); RDW Standard Deviation 49.8 fL (36.4-46.3); Red Blood Count 4.17 M/uL (4.7-6.1); White Blood Count 10.54 K/uL (4.8-10.8)
[2021-04-30] MEDS ORDERED: predniSONE 20 MG TAB PO SCH (09:00)
[2021-04-30 09:10] LABS: BUN Creatinine Ratio 21.9 (10-20); Creatinine Clr Calc Pharmacy 183.3 ml/min; Est GFR (African American) 133.1 ml/min; Est GFR (Non-African American) 114.9 ml/min; Potassium 3.9 mmol/L (3.5-5.1)
[2021-04-30] MEDS: POLYETHYLENE (MIRALAX) 17 GM PACK PO PRN (13:45)
[2021-04-30] MEDS ORDERED: bisacodyL 10 MG SUPP PR STA (13:50)
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
[2021-04-30] MEDS: POLYETHYLENE (MIRALAX) 17 GM PACK PO SCH (18:17)
[2021-04-30] MEDS: ATORVASTATIN 20 MG TAB PO SCH (20:41)
[2021-04-30] MEDS ORDERED: MINERAL OIL ENEMA 133 ML BTL PR PRN (21:19)
[2021-04-30] MEDS ORDERED: MAGNESIUM CITRATE 296 ML/BTL PO STA (21:19)
[2021-05-01] MEDS: MEROPENEM 500 MG in SYRINGE 0 ML IV SCH (05:42)
[2021-05-01 07:59] LABS: Basophils # (auto) 0.03 K/uL (0-0.2); Basophils % (auto) 0.3 %; Eosinophils # (auto) 0.24 K/uL (0-0.5); Eosinophils % (auto) 2.7 %; Hemoglobin 12.6 g/dL (14.0-18.0); Immature Granulocytes # (auto) 0.05 K/uL (0.00-0.02); Immature Granulocytes % (auto) 0.6 %; Lymphocytes # (auto) 2.25 K/uL (1.2-3.4); Mean Corpuscular Hemoglobin 29.7 pg (25-34); Mean Corpuscular Hgb Conc 33.2 g/dL (32-36); Mean Corpuscular Volume 89.6 fL (80-100); Mean Platelet Volume 10.9 fL (7.4-10.4); Monocytes # (auto) 1.12 K/uL (0.11-0.59); Monocytes % (auto) 12.4 %; Neutrophils # (auto) 5.31 K/uL (1.4-6.5); Platelet Count 330 K/uL (130-400); RDW Coefficient of Variation 15.7 % (11.5-14.5); Red Blood Count 4.24 M/uL (4.7-6.1)
[2021-05-01] MEDS: BACLOFEN 10 MG TAB PO SCH ×3 (08:03→21:55)
[2021-05-01] MEDS: FAMOTIDINE 40 MG TABLET PO SCH (08:04)
[2021-05-01] MEDS: OXYBUTYNIN CHLORIDE 5 MG TAB PO SCH ×3 (08:04→21:56)
[2021-05-01] MEDS: lisinopril 40 MG TAB PO SCH (08:05)
[2021-05-01] MEDS: amLODIPine BESYLATE 5 MG TAB PO SCH (08:05)
[2021-05-01] MEDS: FOLIC ACID 1 MG TAB PO SCH (08:06)
[2021-05-01] MEDS: hydrALAZINE HCL 25 MG TAB PO SCH ×2 (08:06→21:53)
[2021-05-01] MEDS: ENOXAPARIN INJ 40 MG/0.4 ML SYR SQ SCH ×2 (08:07→21:54)
[2021-05-01] MEDS: POLYETHYLENE (MIRALAX) 17 GM PACK PO SCH (08:08)
[2021-05-01] MEDS: predniSONE 10 MG TABLET PO SCH (08:09)
[2021-05-01] MEDS: INSULIN ASPART 100 UNITS/ML 3 ML PEN SC SCH ×4 (08:13→21:44)
[2021-05-01 08:27] LABS: BUN Creatinine Ratio 36.2 (10-20); Calcium 9.4 mg/dl (8.5-10.1); Creatinine Clr Calc Pharmacy 231.9 ml/min; Est GFR (African American) 146.6 ml/min; Est GFR (Non-African American) 126.5 ml/min; Potassium 3.8 mmol/L (3.5-5.1)
--- NOTE | 2021-05-01 10:49 | XRay Report ---
XR KUB/Abdomen 1 view CLINICAL HISTORY: Abdominal pain. Evaluate for obstruction.. COMPARISON STUDY: 11/07/2020 TECHNIQUE: Single view of the abdomen. FINDINGS: There are air-filled loops of both large and small bowel with no definite evidence for disproportiona te dilatation or obstruction. There is no evidence for organomegaly or gross intra-abdominal mass. No abnormal calcifications are seen along the course of the urinary tracts bilaterally. No acute osseou s pathology. IMPRESSION: 1.Compared to previous examination, there is again no evidence for bowel obstruction. Electronically signed by: Anam Goddard M.D. 05/01/2021 10:48 AM
[2021-05-01] MEDS ORDERED: bisacodyL 10 MG SUPP PR STA (11:12)
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
[2021-05-01] MEDS: CEFEPIME 2,000 MG in SYRINGE 0 ML IV SCH ×2 (13:27→21:45)
[2021-05-01] MEDS ORDERED: CEFEPIME 2,000 MG in SYRINGE 0 ML IV SCH (21:00)
[2021-05-01] MEDS: ATORVASTATIN 20 MG TAB PO SCH (21:53)
[2021-05-02] MEDS: CEFEPIME 2,000 MG in SYRINGE 0 ML IV SCH ×3 (05:57→20:33)
[2021-05-02] MEDS: POLYETHYLENE (MIRALAX) 17 GM PACK PO SCH (07:33)
[2021-05-02] MEDS: BACLOFEN 10 MG TAB PO SCH ×3 (07:33→20:38)
[2021-05-02] MEDS: FOLIC ACID 1 MG TAB PO SCH (07:33)
[2021-05-02] MEDS: OXYBUTYNIN CHLORIDE 5 MG TAB PO SCH ×3 (07:34→20:36)
[2021-05-02] MEDS: lisinopril 40 MG TAB PO SCH (07:34)
[2021-05-02] MEDS: FAMOTIDINE 40 MG TABLET PO SCH (07:35)
[2021-05-02] MEDS: ENOXAPARIN INJ 40 MG/0.4 ML SYR SQ SCH ×2 (07:35→20:34)
[2021-05-02] MEDS: amLODIPine BESYLATE 5 MG TAB PO SCH (07:35)
[2021-05-02] MEDS: hydrALAZINE HCL 25 MG TAB PO SCH ×2 (07:35→20:37)
[2021-05-02] MEDS: predniSONE 10 MG TABLET PO SCH (07:36)
[2021-05-02] MEDS: INSULIN ASPART 100 UNITS/ML 3 ML PEN SC SCH ×4 (08:07→20:32)
[2021-05-02] MEDS ORDERED: MAGNESIUM CITRATE 296 ML/BTL PO STA (12:25)
[2021-05-02] MEDS ORDERED: GLYCERIN ADULT 12 SUPP/BOX SUPP PR ONE (12:25)
[2021-05-02] MEDS: bisacodyL 10 MG SUPP PR PRN (14:15)
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
[2021-05-02] MEDS: ATORVASTATIN 20 MG TAB PO SCH (20:37)
[2021-05-02] MEDS: INSULIN GLARGINE SOLOSTAR 100 UNITS/ML 3 ML PEN SC SCH (23:54)
[2021-05-03] MEDS: CEFEPIME 2,000 MG in SYRINGE 0 ML IV SCH ×3 (06:15→21:06)
[2021-05-03] MEDS: POLYETHYLENE (MIRALAX) 17 GM PACK PO SCH (08:20)
[2021-05-03] MEDS: amLODIPine BESYLATE 5 MG TAB PO SCH (08:22)
[2021-05-03] MEDS: FAMOTIDINE 40 MG TABLET PO SCH (08:22)
[2021-05-03] MEDS: predniSONE 20 MG TAB PO SCH (08:22)
[2021-05-03] MEDS: OXYBUTYNIN CHLORIDE 5 MG TAB PO SCH ×3 (08:22→21:11)
[2021-05-03] MEDS: ENOXAPARIN INJ 40 MG/0.4 ML SYR SQ SCH ×2 (08:23→21:06)
[2021-05-03] MEDS: hydrALAZINE HCL 25 MG TAB PO SCH ×2 (08:23→21:10)
[2021-05-03] MEDS: BACLOFEN 10 MG TAB PO SCH ×3 (08:23→21:09)
[2021-05-03] MEDS: lisinopril 40 MG TAB PO SCH (08:23)
[2021-05-03] MEDS: INSULIN ASPART 100 UNITS/ML 3 ML PEN SC SCH ×4 (08:26→21:08)
[2021-05-03 08:56] LABS: Basophils # (auto) 0.02 K/uL (0-0.2); Basophils % (auto) 0.2 %; Eosinophils # (auto) 0.29 K/uL (0-0.5); Eosinophils % (auto) 2.9 %; Hematocrit (blood only) 36.2 % (42-52); Immature Granulocytes # (auto) 0.02 K/uL (0.00-0.02); Immature Granulocytes % (auto) 0.2 %; Lymphocytes # (auto) 1.84 K/uL (1.2-3.4); Lymphocytes % (auto) 18.2 %; Mean Corpuscular Hemoglobin 29.3 pg (25-34); Mean Corpuscular Hgb Conc 33.1 g/dL (32-36); Mean Corpuscular Volume 88.3 fL (80-100); Mean Platelet Volume 10.8 fL (7.4-10.4); Monocytes # (auto) 0.92 K/uL (0.11-0.59); Monocytes % (auto) 9.1 %; Neutrophils # (auto) 7.03 K/uL (1.4-6.5); Neutrophils % (auto) 69.4 %; Platelet Count 316 K/uL (130-400); RDW Coefficient of Variation 15.7 % (11.5-14.5); RDW Standard Deviation 50.8 fL (36.4-46.3); White Blood Count 10.12 K/uL (4.8-10.8)
[2021-05-03] MEDS ORDERED: metHOTREXate sodium 2.5 MG TAB PO SCH (09:00)
[2021-05-03 09:33] LABS: BUN Creatinine Ratio 30.9 (10-20); Creatinine Clr Calc Pharmacy 195.9 ml/min; Est GFR (African American) 136.8 ml/min; Est GFR (Non-African American) 118.1 ml/min; Magnesium 2.3 mg/dl (1.8-2.4); Potassium 4.1 mmol/L (3.5-5.1)
[2021-05-03] MEDS: bisacodyL 10 MG SUPP PR PRN (16:36)
[2021-05-03] MEDS: GLYCERIN ADULT 12 SUPP/BOX SUPP PR ONE ×2 (17:28→17:58)
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
[2021-05-03] MEDS: INSULIN GLARGINE SOLOSTAR 100 UNITS/ML 3 ML PEN SC SCH (21:08)
[2021-05-03] MEDS: ATORVASTATIN 20 MG TAB PO SCH (21:11)
[2021-05-04] MEDS: CEFEPIME 2,000 MG in SYRINGE 0 ML IV SCH ×3 (05:36→21:40)
[2021-05-04] MEDS: hydrALAZINE HCL 25 MG TAB PO SCH ×2 (09:06→21:44)
[2021-05-04] MEDS: OXYBUTYNIN CHLORIDE 5 MG TAB PO SCH ×3 (09:06→21:41)
[2021-05-04] MEDS: predniSONE 20 MG TAB PO SCH (09:06)
[2021-05-04] MEDS: ENOXAPARIN INJ 40 MG/0.4 ML SYR SQ SCH ×2 (09:06→21:40)
[2021-05-04] MEDS: POLYETHYLENE (MIRALAX) 17 GM PACK PO SCH (09:06)
[2021-05-04] MEDS: amLODIPine BESYLATE 5 MG TAB PO SCH (09:06)
[2021-05-04] MEDS: lisinopril 40 MG TAB PO SCH (09:07)
[2021-05-04] MEDS: BACLOFEN 10 MG TAB PO SCH ×3 (09:07→21:44)
[2021-05-04] MEDS: FAMOTIDINE 40 MG TABLET PO SCH (09:07)
[2021-05-04] MEDS: FOLIC ACID 1 MG TAB PO SCH (09:07)
[2021-05-04] MEDS: INSULIN ASPART 100 UNITS/ML 3 ML PEN SC SCH ×4 (09:19→21:47)
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
[2021-05-04] MEDS: bisacodyL 10 MG SUPP PR SCH (14:44)
[2021-05-04] MEDS: ATORVASTATIN 20 MG TAB PO SCH (21:43)
[2021-05-04] MEDS: INSULIN GLARGINE SOLOSTAR 100 UNITS/ML 3 ML PEN SC SCH (21:46)
[2021-05-05] MEDS: CEFEPIME 2,000 MG in SYRINGE 0 ML IV SCH ×3 (05:31→22:18)
[2021-05-05 06:34] LABS: Basophils # (auto) 0.03 K/uL (0-0.2); Basophils % (auto) 0.3 %; Eosinophils # (auto) 0.42 K/uL (0-0.5); Hematocrit (blood only) 39.9 % (42-52); Hemoglobin 12.8 g/dL (14.0-18.0); Immature Granulocytes # (auto) 0.04 K/uL (0.00-0.02); Immature Granulocytes % (auto) 0.4 %; Lymphocytes # (auto) 2.21 K/uL (1.2-3.4); Lymphocytes % (auto) 21.1 %; Mean Corpuscular Hemoglobin 28.8 pg (25-34); Mean Corpuscular Hgb Conc 32.1 g/dL (32-36); Mean Corpuscular Volume 89.9 fL (80-100); Monocytes # (auto) 0.98 K/uL (0.11-0.59); Monocytes % (auto) 9.3 %; Neutrophils # (auto) 6.81 K/uL (1.4-6.5); Neutrophils % (auto) 64.9 %; Platelet Count 317 K/uL (130-400); RDW Coefficient of Variation 15.6 % (11.5-14.5); Red Blood Count 4.44 M/uL (4.7-6.1); White Blood Count 10.49 K/uL (4.8-10.8)
[2021-05-05 07:05] LABS: BUN Creatinine Ratio 37.2 (10-20); Calcium 9.3 mg/dl (8.5-10.1); Creatinine Clr Calc Pharmacy 241.8 ml/min; Est GFR (African American) 149.2 ml/min; Est GFR (Non-African American) 128.7 ml/min; Potassium 4.2 mmol/L (3.5-5.1)
[2021-05-05] MEDS: lisinopril 40 MG TAB PO SCH (08:04)
[2021-05-05] MEDS: BACLOFEN 10 MG TAB PO SCH ×3 (08:04→20:20)
[2021-05-05] MEDS: predniSONE 10 MG TABLET PO SCH (08:04)
[2021-05-05] MEDS: amLODIPine BESYLATE 5 MG TAB PO SCH (08:04)
[2021-05-05] MEDS: POLYETHYLENE (MIRALAX) 17 GM PACK PO SCH (08:04)
[2021-05-05] MEDS: FOLIC ACID 1 MG TAB PO SCH (08:04)
[2021-05-05] MEDS: OXYBUTYNIN CHLORIDE 5 MG TAB PO SCH ×3 (08:04→20:19)
[2021-05-05] MEDS: ENOXAPARIN INJ 40 MG/0.4 ML SYR SQ SCH ×2 (08:04→20:26)
[2021-05-05] MEDS: hydrALAZINE HCL 25 MG TAB PO SCH ×2 (08:04→20:20)
[2021-05-05] MEDS: FAMOTIDINE 40 MG TABLET PO SCH (08:04)
[2021-05-05] MEDS: INSULIN ASPART 100 UNITS/ML 3 ML PEN SC SCH ×4 (08:06→20:24)
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
[2021-05-05] MEDS: ATORVASTATIN 20 MG TAB PO SCH (20:19)
[2021-05-05] MEDS: metFORMIN HCL ER 500 MG TABCR PO SCH (20:19)
[2021-05-05] MEDS: INSULIN GLARGINE SOLOSTAR 100 UNITS/ML 3 ML PEN SC SCH (20:24)
[2021-05-06] MEDS: CEFEPIME 2,000 MG in SYRINGE 0 ML IV SCH ×2 (06:03→13:11)
[2021-05-06] MEDS: metFORMIN HCL ER 500 MG TABCR PO SCH (08:15)
[2021-05-06] MEDS: amLODIPine BESYLATE 5 MG TAB PO SCH (08:15)
[2021-05-06] MEDS: ENOXAPARIN INJ 40 MG/0.4 ML SYR SQ SCH (08:16)
[2021-05-06] MEDS: FAMOTIDINE 40 MG TABLET PO SCH (08:16)
[2021-05-06] MEDS: hydrALAZINE HCL 25 MG TAB PO SCH (08:16)
[2021-05-06] MEDS: OXYBUTYNIN CHLORIDE 5 MG TAB PO SCH ×2 (08:16→13:11)
[2021-05-06] MEDS: POLYETHYLENE (MIRALAX) 17 GM PACK PO SCH (08:16)
[2021-05-06] MEDS: FOLIC ACID 1 MG TAB PO SCH (08:16)
[2021-05-06] MEDS: BACLOFEN 10 MG TAB PO SCH ×2 (08:16→13:11)
[2021-05-06] MEDS: predniSONE 10 MG TABLET PO SCH (08:16)
[2021-05-06] MEDS: lisinopril 40 MG TAB PO SCH (08:16)
[2021-05-06] MEDS: INSULIN ASPART 100 UNITS/ML 3 ML PEN SC SCH ×3 (08:17→16:57)
[2021-05-06] MEDS: bisacodyL 10 MG SUPP PR SCH (08:26)
[2021-05-06 10:06] LABS: BUN Creatinine Ratio 34.8 (10-20); Calcium 9.7 mg/dl (8.5-10.1); Creatinine Clr Calc Pharmacy 206.6 ml/min; Est GFR (African American) 139.8 ml/min; Est GFR (Non-African American) 120.7 ml/min; Potassium 4.1 mmol/L (3.5-5.1)
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
== END 2021-05-06 17:57 | disposition home health service (06) | DRG 698 ==
LOC: ED 23:45 → SUATTDRO 04-27 05:44 → 2W 04-27 05:44

== ENCOUNTER 2021-08-27 20:07 | Observation (INO) ==
[2021-08-27] MEDS ORDERED: ONDANSETRON INJ 2 MG/ML 2 ML VIAL IV STA (20:15)
[2021-08-27] MEDS ORDERED: SODIUM CHLORIDE 0.9% 1000ML 1,000 ML IV STA (20:15)
[2021-08-27] MEDS ORDERED: MoRPHine SULFATE 4 MG/ML 1 ML CARP\\VIAL IV PRN (20:15)
--- NOTE | 2021-08-27 20:21 | Emergency Department Note ---
Impression & Plan Catheter-associated urinary tract infection ED Provider Note NAME: MARC PADILLA III AGE: 51 SEX: M : 1970 ARRIVES VIA: Ambulance INFORMANT: Patient, ED PROVIDER(S): Betito Rao DO CHIEF COMPLAINT: Abdominal pressure HPI: The patient is a 51-year-old male who presented to the emergency department for evaluation of abdominal pressure and back pain. The patient states he recently had a suprapubic catheter change. He has a history of frequent recurrent urinary tract infections associated with a suprapubic catheter. He denies having any nausea or vomiting. He did have a low-grade fever of 99 degrees prior to arrival. He denies having any lower extremity swelling. He denies having any headache. He has had no changes to his medications. They did not note that the urine was cloudy or bloody. The patient states that the catheter has been draining since it was replaced this afternoon. The patient has a history of a spinal cord injury in 1993. Ever since that time he has had care at home. The suprapubic catheter was placed early in 1999. ROS: See above HPI for pertinent positives & negatives. A total of 10 systems reviewed and were otherwise negative. PAST MEDICAL HISTORY: See Below PAST SURGICAL HISTORY: See Below FAMILY HISTORY: See Below SOCIAL HISTORY: See Below HOME MEDICATIONS: See Below ALLERGIES: See Below VITALS: See Below PHYSICAL EXAMINATION: GENERAL: Patient is awake alert in no acute distress patient is resting comfortably and showing no signs of anxiety EYES: The conjunctivae are clear. The pupils are round and reactive. EARS, NOSE, MOUTH AND THROAT: The nose is without any evidence of any deformity. Mucous membranes are moist. Tongue is midline. NECK: The neck is nontender and supple. RESPIRATORY: Normal respiratory effort is noted there is no evidence of wheezing rhonchi or rales CARDIOVASCULAR: Regular rate and rhythm noted there no murmurs rubs or gallops normal S1 normal S2. GASTROINTESTINAL: The abdomen is mildly distended. There is no guarding rigidity noted. MUSCULOSKELETAL/EXTREMITIES: There is no evidence of gross deformity in either lower extremity. SKIN: Skin is warm and dry. There is no significant pedal edema. NEUROLOGIC: Patient is awake alert and oriented x3. In either lower extremity. MEDICAL DECISION MAKING: The patient is a 51-year-old male who presented to the emergency department for an evaluation of abdominal discomfort and urinary symptoms. The patient had a Molina catheter recently changed. He does have a history of catheter associated urinary tract infection. The patient did not have any nausea or vomiting. He did have a low-grade fever. The patient was given IV antibiotics in emergency department. He was reevaluated multiple times. The patient does not have much formal backup at home. For this reason I discussed his case with the on-call [facility] hospitalist. They have agreed to evaluate the patient in the emergency department for further management and disposition. Triage Nursing notes reviewed. Prior medical records reviewed Vital Signs: reviewed and remarkable for hypertension. Differential diagnosis: Renal colic, UTI, appendicitis, diverticulitis, mesenteric ischemia, aortic pathology, infections, inflammatory bowel disease, PUD, biliary pathology, as well as other pathologies. ER treatment provided: See below Diagnostics interpreted by me: ECG: none Cardiac Monitoring: An order was placed for continuous cardiac monitoring. The monitor shows a rate of 74 bpm with sinus rhythm. Laboratory studies: As stated above and show below. Imaging studies: See below Consultation(s): I discussed this case with Dr. Villeda who is on-call for the [facility] Hospitalist group. Past Med/Surg History Medical History Acute hyponatremia Acute UTI Acute UTI Bladder stone Diabetes Diarrhea Headache HLD (hyperlipidemia) HTN (hypertension) Hypertension Hyponatremia Ileus Lactic acidosis Nephrolithiasis Neurogenic bladder Osteomyelitis Pemphigoid Pemphigus foliaceus Sacral wound Suprapubic catheter UTI (urinary tract infection) due to urinary indwelling catheter Surgical History History of hip surgery History of suprapubic catheter Previous back surgery Family History Mother Cancer Father Diabetes Grandfather Diabetes Social History Smoking Status: Never smoker Second Hand Exposure: No; Hx Alcohol Use: No Hx Substance Use: No Preferred Language: Hong Konger Communication Ability: Effective Flo[place] Required: No Beliefs That Will Affect Care: None marital status: Single Current Living Situation: Alone Current Living Situation Comment: Typically lives alone with daily care provider, nain Barker Feels Safe at Home: Yes during the past year weight has: decreased > 10 lbs Assistive Devices: None Allergies Allergies Allergy/AdvReac Type Severity Reaction Status Date / Time Sulfa (Sulfonamide Allergy Severe Swelling Verified 08/27/21 21:36 Antibiotics) of Lip/Tongue/Throat piperacillin [From Zosyn] Allergy Intermediate Rash Verified 08/27/21 21:36 tazobactam [From Zosyn] Allergy Intermediate Rash Verified 08/27/21 21:36 Home Meds Home Medications Medication Instructions Recorded Confirmed amlodipine 10 mg tablet 10 mg PO DAILY 05/11/18 08/27/21 baclofen 10 mg tablet 25 mg PO TID 05/11/18 08/27/21 folic acid 1 mg tablet 1 mg PO [id number] 05/11/18 08/27/21 metformin 500 mg tablet,extended 1,000 mg PO AMPM 05/11/18 08/27/21 release 24 hr methotrexate sodium 2.5 mg tablet 15 mg PO WK 05/11/18 08/27/21 oxybutynin chloride 5 mg tablet 5 mg PO TID 05/11/18 08/27/21 famotidine 40 mg tablet 40 mg PO DAILY 03/30/20 08/27/21 methenamine hippurate 1 gram tablet 1 g PO BID 11/05/20 08/27/21 prednisone 5 mg tablet 10 mg PO DAILY 04/27/21 08/27/21 atorvastatin 20 mg tablet 20 mg PO DAILY 08/27/21 08/27/21 glipizide 10 mg tablet, extended 10 mg PO QAM 08/27/21 08/27/21 release 24 hr hydralazine 25 mg tablet 25 mg PO BID 08/27/21 08/27/21 Previous Rx's Medication Instructions Recorded lisinopril 40 mg tablet 40 mg PO DAILY #30 tab 11/12/20 Results & Data (ED) Vital Signs Vital Signs - 24 hr 08/27/21 20:12 08/27/21 20:15 08/27/21 20:30 Temperature 37.2 C Temperature Source Oral Pulse Rate 79 72 73 Pulse Rhythm Regular Pulse Strength Normal Respiratory Rate 20 21 24 Respiratory Effort / Characteristics Non-Labored Spontaneous Respiratory Depth Normal Blood Pressure 209/130 H 188/93 H Blood Pressure Mean 156 124 Blood Pressure Position Lying Pulse Oximetry 95 96 96 Oxygen Delivery Method Room Air Room Air Room Air Sepsis Recent Fever Within 48 Hours No Sepsis New/Unexplained Change in Mental Status N/A Sepsis Action Taken by Nursing No Action Required 08/27/21 21:30 08/27/21 22:00 Temperature Temperature Source Pulse Rate 68 74 Pulse Rhythm Pulse Strength Respiratory Rate 18 13 Respiratory Effort / Characteristics Respiratory Depth Blood Pressure Blood Pressure Mean Blood Pressure Position Pulse Oximetry 97 Oxygen Delivery Method Room Air Sepsis Recent Fever Within 48 Hours Sepsis New/Unexplained Change in Mental Status Sepsis Action Taken by [facility] Medications Current Medication List: was personally reviewed by me Laboratory Data Attestation: I reviewed the patient's lab results. Result diagrams: 08/27/21 21:29 08/27/21 20:37 Lab Results 08/27/21 08/27/21 08/27/21 Range/Units 20:28 20:37 20:37 WBC Cancelled RBC Cancelled Hgb Cancelled Hct Cancelled MCV Cancelled MCH Cancelled MCHC Cancelled RDW Std Deviation Cancelled RDW Coeff of Sandor Cancelled Plt Count Cancelled MPV Cancelled Immature Gran % (Auto) Cancelled Neut % (Auto) Cancelled Lymph % (Auto) Cancelled [place] % (Auto) Cancelled Eos % (Auto) Cancelled Baso % (Auto) Cancelled Neut # (Auto) Cancelled Lymph # (Auto) Cancelled [place] # (Auto) Cancelled Eos # (Auto) Cancelled Baso # (Auto) Cancelled Immature Gran # (Auto) Cancelled Absolute Nucleated RBC Cancelled Nucleated RBC % (auto) Cancelled Neutrophils % (Manual) Cancelled Band Neutrophils % Cancelled Lymphocytes % (Manual) Cancelled Prolymphocyte % Cancelled Reactive Lymphs % (Man) Cancelled Monocytes % (Manual) Cancelled Eosinophils % (Manual) Cancelled Basophils % (Manual) Cancelled Metamyelocytes % (Man) Cancelled Myelocytes % (Man) Cancelled Promyelocytes % (Man) Cancelled Blast Cells % (Manual) Cancelled Plasma Cell % (Manual) Cancelled Other Cells % Cancelled Nucleated RBC % Cancelled Neutrophils # (Manual) Cancelled Band Neutrophils # Cancelled Total Absolute Neuts Cancelled Lymphocytes # (Manual) Cancelled Prolymphocyte # Cancelled Reactive Lymphs # Cancelled Total Abs Lymphocytes Cancelled Monocytes # (Manual) Cancelled Eosinophils # (Manual) Cancelled Basophils # (Manual) Cancelled Metamyelocytes # (Man) Cancelled Myelocytes # (Manual) Cancelled Promyelocytes # (Man) Cancelled Blast Cells # (Man) Cancelled Plasma Cell # (Manual) Cancelled Other Cells # Cancelled Nucleated RBCs # (Man) Cancelled Hypersegmented Neuts Cancelled Hyposegmented Neuts Cancelled Hypogranular Neuts Cancelled Large Granular Lymphs Cancelled # Lrg Granular Lymphs Cancelled Hairy Cells Cancelled Smudge Cells Cancelled Toxic Granulation Cancelled Toxic Vacuolation Cancelled Dohle Bodies Cancelled Alexandrea Rods Cancelled Platelet Estimate Cancelled Hypogranular Platelets Cancelled Clumped Platelets Cancelled Giant Platelets Cancelled Platelet Satelliting Cancelled RBC Morphology Cancelled Polychromasia Cancelled Hypochromasia Cancelled Poikilocytosis Cancelled Basophilic Stippling Cancelled Anisocytosis Cancelled Microcytosis Cancelled Macrocytosis Cancelled Spherocytes Cancelled Pappenheimer Bodies Cancelled Sickle Cells Cancelled Target Cells Cancelled Tear Drop Cells Cancelled Ovalocytes Cancelled Stomatocytes Cancelled [place] Veintiseis Bodies Cancelled Echinocytes Cancelled Acanthocytes (Spur) Cancelled Rouleaux Cancelled RBC Agglutinates Cancelled Schistocytes Cancelled RBC Morph Comment Cancelled Sezary Cell Cancelled Sodium 131 L (136-145) mmol/L Potassium 3.8 (3.5-5.1) mmol/L Chloride 96 L (98-107) mmol/L Carbon Dioxide 25 (21-32) mmol/L Anion Gap 10 (3-11) BUN 6 (6-23) mg/dl Creatinine 0.35 L (0.6-1.4) mg/dl Est Cr Clr Drug Dosing Not Reportable Est GFR ( Amer) > 150.0 ml/min Est GFR (Non-Af Amer) 145.3 ml/min BUN/Creatinine Ratio 17.1 (10-20) Glucose 100 H (70-99(Fasting)) mg/dl Calcium 9.6 (8.5-10.1) mg/dl Total Bilirubin 0.7 (0.2-1.0) mg/dl AST 10 L (13-39) U/L ALT 13 (7-52) U/L Alkaline Phosphatase 51 (34-104) U/L Total Protein 6.6 (6.0-8.3) gm/dl Albumin 4.0 (3.4-5.0) gm/dl Globulin 2.6 (2.5-4.0) gm/dl Albumin/Globulin Ratio 1.5 (0.9-2) Lipase 34 (11-82) U/L Urine Color Yellow Urine Appearance Clear (Clear) Urine pH 8.0 H (4.5-7.5) Ur Specific [place] 1.007 (1.000-1.030) Urine Protein Negative (Negative) Urine Glucose (UA) Negative (Negative) Urine Ketones Negative (Negative) Urine Blood Trace H (Negative) Urine Nitrite Negative (Negative) Urine Bilirubin Negative (Negative) Urine Urobilinogen Negative (Negative) Ur Leukocyte Esterase 3+ H (Negative) Urine WBC (Auto) >30 H (0-5) /hpf Urine RBC (Auto) 0-4 (0-4) /hpf U Hyaline Cast (Auto) 5-10 H (0-5) /lpf U Epithel Cells (Auto) 0-5 (0-5) /lpf Urine Bacteria (Auto) Negative (Negative) SARS-CoV-2, RNA, NAAT (NEGATIVE) 08/27/21 08/27/21 Range/Units 21:29 22:24 WBC 11.53 H RBC 4.50 L Hgb 13.1 L Hct 38.6 L MCV 85.8 MCH 29.1 MCHC 33.9 RDW Std Deviation 50.2 H RDW Coeff of Sandor 16.1 H Plt Count 319 MPV 10.0 Immature Gran % (Auto) 0.3 Neut % (Auto) 75.7 Lymph % (Auto) 15.3 [place] % (Auto) 7.5 Eos % (Auto) 1.0 Baso % (Auto) 0.2 Neut # (Auto) 8.74 H Lymph # (Auto) 1.76 [place] # (Auto) 0.87 H Eos # (Auto) 0.11 Baso # (Auto) 0.02 Immature Gran # (Auto) 0.03 H Absolute Nucleated RBC Nucleated RBC % (auto) Neutrophils % (Manual) Band Neutrophils % Lymphocytes % (Manual) Prolymphocyte % Reactive Lymphs % (Man) Monocytes % (Manual) Eosinophils % (Manual) Basophils % (Manual) Metamyelocytes % (Man) Myelocytes % (Man) Promyelocytes % (Man) Blast Cells % (Manual) Plasma Cell % (Manual) Other Cells % Nucleated RBC % Neutrophils # (Manual) Band Neutrophils # Total Absolute Neuts Lymphocytes # (Manual) Prolymphocyte # Reactive Lymphs # Total Abs Lymphocytes Monocytes # (Manual) Eosinophils # (Manual) Basophils # (Manual) Metamyelocytes # (Man) Myelocytes # (Manual) Promyelocytes # (Man) Blast Cells # (Man) Plasma Cell # (Manual) Other Cells # Nucleated RBCs # (Man) Hypersegmented Neuts Hyposegmented Neuts Hypogranular Neuts Large Granular Lymphs # Lrg Granular Lymphs Hairy Cells Smudge Cells Toxic Granulation Toxic Vacuolation Dohle Bodies Alexandrea Rods Platelet Estimate Hypogranular Platelets Clumped Platelets Giant Platelets Platelet Satelliting RBC Morphology Polychromasia Hypochromasia Poikilocytosis Basophilic Stippling Anisocytosis Microcytosis Macrocytosis Spherocytes Pappenheimer Bodies Sickle Cells Target Cells Tear Drop Cells Ovalocytes Stomatocytes [place]is Bodies Echinocytes Acanthocytes (Spur) Rouleaux RBC Agglutinates Schistocytes RBC Morph Comment Sezary Cell Sodium (136-145) mmol/L Potassium (3.5-5.1) mmol/L Chloride (98-107) mmol/L Carbon Dioxide (21-32) mmol/L Anion Gap (3-11) BUN (6-23) mg/dl Creatinine (0.6-1.4) mg/dl Est Cr Clr Drug Dosing Est GFR ( Amer) ml/min Est GFR (Non-Af Amer) ml/min BUN/Creatinine Ratio (10-20) Glucose (70-99(Fasting)) mg/dl Calcium (8.5-10.1) mg/dl Total Bilirubin (0.2-1.0) mg/dl AST (13-39) U/L ALT (7-52) U/L Alkaline Phosphatase (34-104) U/L Total Protein (6.0-8.3) gm/dl Albumin (3.4-5.0) gm/dl Globulin (2.5-4.0) gm/dl Albumin/Globulin Ratio (0.9-2) Lipase (11-82) U/L Urine Color Urine Appearance (Clear) Urine pH (4.5-7.5) Ur Specific [place] (1.000-1.030) Urine Protein (Negative) Urine Glucose (UA) (Negative) Urine Ketones (Negative) Urine Blood (Negative) Urine Nitrite (Negative) Urine Bilirubin (Negative) Urine Urobilinogen (Negative) Ur Leukocyte Esterase (Negative) Urine WBC (Auto) (0-5) /hpf Urine RBC (Auto) (0-4) /hpf U Hyaline Cast (Auto) (0-5) /lpf U Epithel Cells (Auto) (0-5) /lpf Urine Bacteria (Auto) (Negative) SARS-CoV-2, RNA, NAAT NEGATIVE (NEGATIVE) Administered Medications Discontinued Medications Sodium Chloride (Nss 1000ml) 1,000 mls @ 999 mls/hr IV .[id number] STA Stop: 08/27/21 21:15 Last Infusion: 08/27/21 21:44 Dose: 0 mls/hr Documented by: [id number] Admin: 08/27/21 20:40 Dose: 999 mls/hr Documented by: [id number] Cefepime HCl (Maxipime) 2,000 mg in 20 mls @ 5 mls/min IV NOW STA; Protocol Stop: 08/27/21 21:51 Last Admin: 08/27/21 22:00 Dose: 5 mls/min Documented by: [id number] Nicotine (Nicotine 14 Mg/24 Hr Patch) 14 mg TD ONE ONE Stop: 08/27/21 22:15 Last Admin: 08/27/21 22:47 Dose: Not Given Documented by: [id number] Ondansetron HCl (Ondansetron Inj 2 Mg/Ml 2 Ml Vial) 4 mg IV NOW STA Stop: 08/27/21 20:16 Last Admin: 08/27/21 20:56 Dose: Not Given Documented by: [id number] Imaging Data Radiologist's Impression: Patient: MARC PADILLA III (Male) : 70 Status: ER Date: 08/27/21 21:03 Room #: History: Pt arrived from home via BLS c/o feeling kidney pressure, "bloated", and tired. Hx of frequent UTI's. Suprapubic catheter changed today by home health; draining large amount yellow urine. Slices: [id number] Priors: Tech: Alexandro Walker @ [phone] Exams: CT ABDOMEN & PELVIS Without Contrast Contrast: Accession Numbers: [id number] Referring Physician: REFERRED SELF Preliminary Findings Only See Final Report For Complete Findings CT ABDOMEN & PELVIS Without Contrast: Comparison 04/29/2021 Molina catheter within the bladder which is decompressed. Nonobstructing nephrolithiasis in the right kidney. No obstructive uropathy or perinephric inflammatory changes. No bowel obstruction. Mildly distended colon. No overt inflammatory changes, free fluid, or fluid collection. Remainder of the organs grossly unremarkable. Radiologist: Albert Callahan MD Study ready at 21:05 and initial results transmitted at 21:14 Discharge Plan Visit Data Chief Complaint: Urinary Symptoms Stated Complaint: Urinary Symptoms ED Provider: Betito Rao Discharge Problem: Catheter-associated urinary tract infection Patient Disposition: Being Evaluated by Hospitalist Forms Stand Alone Forms: My [facility] Prescriptions Prescriptions: No Action amlodipine 10 mg tablet 10 mg PO DAILY RF: 0 methotrexate sodium 2.5 mg tablet 15 mg PO WK RF: 0 oxybutynin chloride 5 mg tablet 5 mg PO TID RF: 0 metformin 500 mg tablet extended release 24 hr 1,000 mg PO AMPM RF: 0 baclofen 10 mg tablet 25 mg PO TID RF: 0 folic acid 1 mg tablet 1 mg PO 6XWK RF: 0 famotidine 40 mg tablet 40 mg PO DAILY RF: 0 prednisone 5 mg tablet 10 mg PO DAILY RF: 0 glipizide 10 mg tablet extended release 24hr 10 mg PO QAM RF: 0 atorvastatin 20 mg tablet 20 mg PO DAILY RF: 0 hydralazine 25 mg tablet 25 mg PO BID RF: 0 methenamine hippurate 1 gram Tablet 1 g PO BID RF: 0 lisinopril 40 mg tablet 40 mg PO DAILY Qty: 30 RF: 0 Referrals Referrals: Loi Dupree MD [Primary Care Provider] -
[2021-08-27 20:34] LABS: Appearance Urine Clear (Clear); Bacteria Urine Automated Negative (Negative); Bilirubin Urine Negative (Negative); Blood Urine Trace (Negative); Color Urine Yellow; Epithelial Cell Urine Auto 0-5 /lpf (0-5); Glucose Urine UA Negative (Negative); Ketones Urine Negative (Negative); Leukocyte Esterase Urine 3+ (Negative); Nitrite Urine Negative (Negative); Protein Urine Negative (Negative); RBC Urine Automated 0-4 /hpf (0-4); Specific Gravity Urine 1.007 (1.000-1.030); Urobilinogen Urine Negative (Negative); WBC Urine Automated >30 /hpf (0-5)
[2021-08-27 21:13] LABS: Alanine Aminotransferase 13 U/L (7-52); Albumin Globulin Ratio 1.5 (0.9-2); Alkaline Phosphatase 51 U/L (34-104); Anion Gap 10 (3-11); Aspartate Aminotransferase 10 U/L (13-39); BUN Creatinine Ratio 17.1 (10-20); Bilirubin,Total 0.7 mg/dl (0.2-1.0); Blood Urea Nitrogen 6 mg/dl (6-23); Calcium 9.6 mg/dl (8.5-10.1); Carbon Dioxide 25 mmol/L (21-32); Chloride 96 mmol/L (98-107); Est GFR (African American) > 150.0 ml/min; Est GFR (Non-African American) 145.3 ml/min; Globulin 2.6 gm/dl (2.5-4.0); Glucose 100 mg/dl (70-99(Fasting)); Lipase 34 U/L (11-82); Potassium 3.8 mmol/L (3.5-5.1); Sodium 131 mmol/L (136-145); Total Protein 6.6 gm/dl (6.0-8.3)
[2021-08-27 21:40] LABS: Basophils # (auto) 0.02 K/uL (0-0.2); Basophils % (auto) 0.2 %; Eosinophils # (auto) 0.11 K/uL (0-0.5); Hematocrit (blood only) 38.6 % (42-52); Hemoglobin 13.1 g/dL (14.0-18.0); Immature Granulocytes # (auto) 0.03 K/uL (0.00-0.02); Immature Granulocytes % (auto) 0.3 %; Lymphocytes # (auto) 1.76 K/uL (1.2-3.4); Lymphocytes % (auto) 15.3 %; Mean Corpuscular Hemoglobin 29.1 pg (25-34); Mean Corpuscular Hgb Conc 33.9 g/dL (32-36); Mean Corpuscular Volume 85.8 fL (80-100); Monocytes # (auto) 0.87 K/uL (0.11-0.59); Monocytes % (auto) 7.5 %; Neutrophils # (auto) 8.74 K/uL (1.4-6.5); Neutrophils % (auto) 75.7 %; Platelet Count 319 K/uL (130-400); RDW Coefficient of Variation 16.1 % (11.5-14.5); RDW Standard Deviation 50.2 fL (36.4-46.3); White Blood Count 11.53 K/uL (4.8-10.8)
[2021-08-27] MEDS ORDERED: CEFEPIME 2,000 MG/20 ML VIAL IV STA (21:48)
[2021-08-27] MEDS ORDERED: NICOTINE 14 MG/24 HR PATCH TD ONE (22:14)
--- NOTE | 2021-08-27 22:47 | History & Physical Report ---
Date of Service August 27, 2021 Assessment & Plan (1) Catheter-associated urinary tract infection: Plan: Catheter associated UTI/history of ESBL E. coli/history of MDR Pseudomonas aeruginosa- Patient already received cefepime IV from the ED, which 2 of his previous inf ections are resistant to Meropenem 1 g IV every 8 hours LR at 80 mils per hour x1 L Follow urine culture and sensitivities (2) History of ESBL E. 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 Patient is allergic to penicillins (4) Neurogenic bladder: (5) Urinary retention: Plan: Patient is having improved drainage by his history, with having the suprapubic catheter changed today in the outpatient setting (6) HLD (hyperlipidemia): Plan: Continue atorvastatin (7) HTN (hypertension): Plan: Continue amlodipine, hydralazine and lisinopril with hold parameters (8) Diabetes: Plan: Hold Metformin and glipizide Placed on sliding scale (9) Pemphigoid: Plan: In the outpatient setting on methotrexate and prednisone No indication for stress dose steroids at this time (10) Quadriplegia: Plan: Chronic issue (11) Suprapubic catheter: Plan: Noted above History of Present Illness Chief Complaint: The patient presents to the emergency department with complaint of abdominal and pelvic pressure, having had a suprapubic catheter change earlier in the day Primary Care Provider: Loi Dupree The patient is a 51-year-old male with a past medical history including quadriplegia, history of sacral decubitus, diabetes mellitus, pemphigoid, pemphigus foliaceous, hypertension, hyperlipidemia, osteomyelitis, history of multidrug-resistant Pseudomonas UTI, history of ESBL E. coli UTI, neurogenic bladder and urinary retention. Patient reports he does have his suprapubic catheter changed, and has noted abdominal and pelvic pressure. He had a temperature of 99.1 degrees prior to arrival. He reports that his suprapubic catheter is draining better since having been changed earlier in the afternoon. Allergies Allergy/AdvReac Type Severity Reaction Status Date / Time Sulfa (Sulfonamide Allergy Severe Swelling Verified 08/27/21 21:36 Antibiotics) of Lip/Tongue/Throat piperacillin [From Zosyn] Allergy Intermediate Rash Verified 08/27/21 21:36 tazobactam [From Zosyn] Allergy Intermediate Rash Verified 08/27/21 21:36 Home Medications Medication Instructions Recorded Confirmed Type amlodipine 10 mg tablet 10 mg PO DAILY 05/11/18 08/27/21 History baclofen 10 mg tablet 25 mg PO TID 05/11/18 08/27/21 History folic acid 1 mg tablet 1 mg PO [id number] 05/11/18 08/27/21 History metformin 500 mg tablet,extended 1,000 mg PO AMPM 05/11/18 08/27/21 History release 24 hr methotrexate sodium 2.5 mg tablet 15 mg PO WK 05/11/18 08/27/21 History oxybutynin chloride 5 mg tablet 5 mg PO TID 05/11/18 08/27/21 History famotidine 40 mg tablet 40 mg PO DAILY 03/30/20 08/27/21 History methenamine hippurate 1 gram tablet 1 g PO BID 11/05/20 08/27/21 History lisinopril 40 mg tablet 40 mg PO DAILY #30 tab 11/12/20 08/27/21 Rx prednisone 5 mg tablet 10 mg PO DAILY 04/27/21 08/27/21 History atorvastatin 20 mg tablet 20 mg PO DAILY 08/27/21 08/27/21 History glipizide 10 mg tablet, extended 10 mg PO QAM 08/27/21 08/27/21 History release 24 hr hydralazine 25 mg tablet 25 mg PO BID 08/27/21 08/27/21 History Past Med/Surg History Medical History Acute hyponatremia Acute UTI Acute UTI Bladder stone Diabetes Diarrhea Headache HLD (hyperlipidemia) HTN (hypertension) Hypertension Hyponatremia Ileus Lactic acidosis Nephrolithiasis Neurogenic bladder Osteomyelitis Pemphigoid Pemphigus foliaceus Sacral wound Suprapubic catheter UTI (urinary tract infection) due to urinary indwelling catheter Surgical History History of hip surgery History of suprapubic catheter Previous back surgery Family History Mother Cancer Father Diabetes Grandfather Diabetes Social History Smoking Status: Former smoker Second Hand Exposure: No; Do You Dip or Chew Tobacco: No; Hx Alcohol Use: No Hx Substance Use: No Preferred Language: Libyan Communication Ability: Effective [employer] Ax Developer Required: No Beliefs That Will Affect Care: None marital status: Single Current Living Situation: Alone Current Living Situation Comment: Typically lives alone with daily care provider, nain Barker Feels Safe at Home: Yes Safety Concerns: Feels Safe At This Time during the past year weight has: decreased > 10 lbs Assistive Devices: Mechanical Lift Assistive Devices Comment: universal cuff for meals Review of Systems Review of Systems: The patient denies chest pain, palpitations, shortness of breath, dyspnea on exertion, cough, lower extremity swelling, sore throat, sweats, nausea, vomiting, diarrhea , constipation, blood in urine or stool, dysuria, dizziness, headache, memory loss, loss of consciousness, rash, abnormal bruising or bleeding, neck pain, or night sweats. The review of systems is otherwise negative other than for that already noted above, and at least 10 systems have been reviewed. Physical Exam Physical Exam: The patient is awake, alert and oriented 3, well developed and well nourished, normocephalic and atraumatic, lying in bed and in no acute distress. HEENT--PERRL, EOMI, mucous membranes and oropharynx dry. Neck--supple. No JVD. No bruits. Thyroid normal, trachea midline, no adenopathy. Heart--normal S1 and S2. No murmurs, rubs or gallops. Lungs--clear bilaterally, no respiratory distress, no accessory muscle use. Abdomen--normal bowel sounds and soft. Nontender. Nondistended. Morbidly obese Extremities--no cyanosis or clubbing. No edema. Dermatologic--normal skin turgor, normal color, no abnormal lymph nodes, no rash. Neurologic--quadriplegia Rheumatologic--quadriplegia Psychiatric--normal affect. Results & Data Results & Data ([facility]) Vital Signs (Past 12 Hours) Vital Signs Temp Pulse Resp BP Pulse Ox 08/27/21 22:00 74 13 08/27/21 21:30 68 18 97 08/27/21 20:30 73 24 188/93 H 96 08/27/21 20:15 37.2 C 72 21 209/130 H 96 08/27/21 20:12 79 20 95 Laboratory Results Laboratory Results WBC 11.53 K/uL (4.8-10.8) H 08/27/21 21: RBC 4.50 M/uL (4.7-6.1) L 08/27/21 21: Hgb 13.1 g/dL (14.0-18.0) L 08/27/21 21: Hct 38.6 % (42-52) L 08/27/21 21: MCV 85.8 fL (80-100) 08/27/21 21: MCH 29.1 pg (25-34) 08/27/21 21: MCHC 33.9 g/dL (32-36) 08/27/21 21: RDW Std Deviation 50.2 fL (36.4-46.3) H 08/27/21: RDW Coeff of Sandor 16.1 % (11.5-14.5) H 08/27/21 21: Plt Count 319 K/uL (130-400) 08/27/21: MPV 10.0 fL (7.4-10.4) 08/27/21: Immature Gran % (Auto) 0.3 % 08/27/21 21: Neut % (Auto) 75.7 % 08/27/21: Lymph % (Auto) 15.3 % 08/27/21: [place] % (Auto) 7.5 % 08/27/21: Eos % (Auto) 1.0 % 08/27/21 21: Baso % (Auto) 0.2 % 08/27/21: Neut # (Auto) 8.74 K/uL (1.4-6.5) H 08/27/21: Lymph # (Auto) 1.76 K/uL (1.2-3.4) 08/27/21 21: [place] # (Auto) 0.87 K/uL (0.11-0.59) H 08/27/21: Eos # (Auto) 0.11 K/uL (0-0.5) 08/27/21 21:29 Baso # (Auto) 0.02 K/uL (0-0.2) 08/27/21 21:29 Immature Gran # (Auto) 0.03 K/uL (0.00-0.02) H 08/27/21 21:29 Absolute Nucleated RBC Cancelled 08/27/21 20:37 Nucleated RBC % (auto) Cancelled 08/27/21 20:37 Neutrophils % (Manual) Cancelled 08/27/21 20:37 Band Neutrophils % Cancelled 08/27/21 20:37 Lymphocytes % (Manual) Cancelled 08/27/21 20:37 Prolymphocyte % Cancelled 08/27/21 20:37 Reactive Lymphs % (Man) Cancelled 08/27/21 20:37 Monocytes % (Manual) Cancelled 08/27/21 20:37 Eosinophils % (Manual) Cancelled 08/27/21 20:37 Basophils % (Manual) Cancelled 08/27/21 20:37 Metamyelocytes % (Man) Cancelled 08/27/21 20:37 Myelocytes % (Man) Cancelled 08/27/21 20:37 Promyelocytes % (Man) Cancelled 08/27/21 20:37 Blast Cells % (Manual) Cancelled 08/27/21 20:37 Plasma Cell % (Manual) Cancelled 08/27/21 20:37 Other Cells % Cancelled 08/27/21 20:37 Nucleated RBC % Cancelled 08/27/21 20:37 Neutrophils # (Manual) Cancelled 08/27/21 20:37 Band Neutrophils # Cancelled 08/27/21 20:37 Total Absolute Neuts Cancelled 08/27/21 20:37 Lymphocytes # (Manual) Cancelled 08/27/21 20:37 Prolymphocyte # Cancelled 08/27/21 20:37 Reactive Lymphs # Cancelled 08/27/21 20:37 Total Abs Lymphocytes Cancelled 08/27/21 20:37 Monocytes # (Manual) Cancelled 08/27/21 20:37 Eosinophils # (Manual) Cancelled 08/27/21 20:37 Basophils # (Manual) Cancelled 08/27/21 20:37 Metamyelocytes # (Man) Cancelled 08/27/21 20:37 Myelocytes # (Manual) Cancelled 08/27/21 20:37 Promyelocytes # (Man) Cancelled 08/27/21 20:37 Blast Cells # (Man) Cancelled 08/27/21 20:37 Plasma Cell # (Manual) Cancelled 08/27/21 20:37 Other Cells # Cancelled 08/27/21 20:37 Nucleated RBCs # (Man) Cancelled 08/27/21 20:37 Hypersegmented Neuts Cancelled 08/27/21 20:37 Hyposegmented Neuts Cancelled 08/27/21 20:37 Hypogranular Neuts Cancelled 08/27/21 20:37 Large Granular Lymphs Cancelled 08/27/21 20:37 # Lrg Granular Lymphs Cancelled 08/27/21 20:37 Hairy Cells Cancelled 08/27/21 20:37 Smudge Cells Cancelled 08/27/21 20:37 Toxic Granulation Cancelled 08/27/21 20:37 Toxic Vacuolation Cancelled 08/27/21 20:37 Dohle Bodies Cancelled 08/27/21 20:37 Alexandrea Rods Cancelled 08/27/21 20:37 Platelet Estimate Cancelled 08/27/21 20:37 Hypogranular Platelets Cancelled 08/27/21 20:37 Clumped Platelets Cancelled 08/27/21 20:37 Giant Platelets Cancelled 08/27/21 20:37 Platelet Satelliting Cancelled 08/27/21 20:37 RBC Morphology Cancelled 08/27/21 20:37 Polychromasia Cancelled 08/27/21 20:37 Hypochromasia Cancelled 08/27/21 20:37 Poikilocytosis Cancelled 08/27/21 20:37 Basophilic Stippling Cancelled 08/27/21 20:37 Anisocytosis Cancelled 08/27/21 20:37 Microcytosis Cancelled 08/27/21 20:37 Macrocytosis Cancelled 08/27/21 20:37 Spherocytes Cancelled 08/27/21 20:37 Pappenheimer Bodies Cancelled 08/27/21 20:37 Sickle Cells Cancelled 08/27/21 20:37 Target Cells Cancelled 08/27/21 20:37 Tear Drop Cells Cancelled 08/27/21 20:37 Ovalocytes Cancelled 08/27/21 20:37 Stomatocytes Cancelled 08/27/21 20:37 [place] Bodies Cancelled 08/27/21 20:37 Echinocytes Cancelled 08/27/21 20:37 Acanthocytes (Spur) Cancelled 08/27/21 20:37 Rouleaux Cancelled 08/27/21 20:37 RBC Agglutinates Cancelled 08/27/21 20:37 Schistocytes Cancelled 08/27/21 20:37 RBC Morph Comment Cancelled 08/27/21 20:37 Sezary Cell Cancelled 08/27/21 20:37 Sodium 131 mmol/L (136-145) L 08/27/21 20:37 Potassium 3.8 mmol/L (3.5-5.1) 08/27/21 20:37 Chloride 96 mmol/L (98-107) L 08/27/21 20:37 Carbon Dioxide 25 mmol/L (21-32) 08/27/21 20:37 Anion Gap 10 (3-11) 08/27/21 20:37 BUN 6 mg/dl (6-23) 08/27/21 20:37 Creatinine 0.35 mg/dl (0.6-1.4) L 08/27/21 20:37 Est Cr Clr Drug Dosing Not Reportable 08/27/21 20:37 Est GFR ( Amer) > 150.0 ml/min 08/27/21 20:37 Est GFR (Non-Af Amer) 145.3 ml/min 08/27/21 20:37 BUN/Creatinine Ratio 17.1 (10-20) 08/27/21 20:37 Glucose 100 mg/dl (70-99(Fasting)) H 08/27/21 20:37 Calcium 9.6 mg/dl (8.5-10.1) 08/27/21 20:37 Total Bilirubin 0.7 mg/dl (0.2-1.0) 08/27/21 20:37 AST 10 U/L (13-39) L 08/27/21 20:37 ALT 13 U/L (7-52) 08/27/21 20:37 Alkaline Phosphatase 51 U/L (34-104) 08/27/21 20:37 Total Protein 6.6 gm/dl (6.0-8.3) 08/27/21 20:37 Albumin 4.0 gm/dl (3.4-5.0) 08/27/21 20:37 Globulin 2.6 gm/dl (2.5-4.0) 08/27/21 20:37 Albumin/Globulin Ratio 1.5 (0.9-2) 08/27/21 20:37 Lipase 34 U/L (11-82) 08/27/21 20:37 Urine Color Yellow 08/27/21 20:28 Urine Appearance Clear (Clear) 08/27/21 20:28 Urine pH 8.0 (4.5-7.5) H 08/27/21 20:28 Ur Specific [place] 1.007 (1.000-1.030) 08/27/21 20:28 Urine Protein Negative (Negative) 08/27/21 20:28 Urine Glucose (UA) Negative (Negative) 08/27/21 20:28 Urine Ketones Negative (Negative) 08/27/21 20:28 Urine Blood Trace (Negative) H 08/27/21 20:28 Urine Nitrite Negative (Negative) 08/27/21 20:28 Urine Bilirubin Negative (Negative) 08/27/21 20:28 Urine Urobilinogen Negative (Negative) 08/27/21 20:28 Ur Leukocyte Esterase 3+ (Negative) H 08/27/21 20:28 Urine WBC (Auto) >30 /hpf (0-5) H 08/27/21 20:28 Urine RBC (Auto) 0-4 /hpf (0-4) 08/27/21 20:28 U Hyaline Cast (Auto) 5-10 /lpf (0-5) H 08/27/21 20:28 U Epithel Cells (Auto) 0-5 /lpf (0-5) 08/27/21 20:28 Urine Bacteria (Auto) Negative (Negative) 08/27/21 20:28 SARS-CoV-2, RNA, NAAT NEGATIVE (NEGATIVE) 08/27/21 22:24 Code Status & VTE Plan Code Status Full code VTE Prophylaxis Plan VTE Prophylaxis will be ordered: Yes PG Care Time/CCT Total # of Minutes Spent Total Time Spent with Patient: Total time spent is greater than 50% in coordination of care (as documented) at patient's floor/unit and/or counseling patient: Coding Level of Care Code 53502 Initial Inpt Care Lvl 3 Diagnoses Catheter-associated urinary tract infection T83.511A; N39.0 Encounter type: initial encounter Indwelling urinary catheter type: unspecified History of ESBL E. 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
[2021-08-28] MEDS ORDERED: MEROPENEM CONSULT ACTIVE PRN (01:47)
[2021-08-28] MEDS ORDERED: MEROPENEM 1,000 MG in SYRINGE 0 ML IV SCH (01:47)
[2021-08-28] MEDS ORDERED: ONDANSETRON INJ 2 MG/ML 2 ML VIAL IV PRN (01:47)
[2021-08-28] MEDS: LACTATED RINGER'S 1,000 ML IV SCH ×2 (02:13→13:55)
[2021-08-28] MEDS: hydrALAZINE HCL 25 MG TAB PO SCH ×3 (02:31→21:25)
[2021-08-28] MEDS: MEROPENEM 500 MG in SYRINGE 0 ML IV SCH ×4 (04:17→21:33)
--- NOTE | 2021-08-28 07:33 | CT Scan Report ---
CT abd pelvis wo con CLINICAL HISTORY: flank pain and bloating. History of right renal calculi COMPARISON STUDY: 04/29/2021 CT DOSE: 3733.86 mGy.cm TECHNIQUE: Standard CT of the Abdomen and Pelvis was performed without IV contrast. The patient did not receive oral contrast. A dose lowering technique was utilized adhering to the principles of ROBERT Meza FINDINGS: Lung base: The lung bases are clear. Abdominal cavity: There is no evidence for abdominal mass, adenopathy or ascites. Liver: The liver is homogeneous in attenuation on these limited noncontrast images.. Spleen: The spleen is homogeneous in attenuation on these limited noncontrast images. Pancreas: The pancreas is homogeneous in attenuation on these limited noncontrast images. Gall Bladder: The gallbladder is well distended with no evidence for cholelithiasis, wall thickening or pericholecystic edema.. Adrenal glands: The adrenal glands are normal in size and attenuation on these limited noncontrast im ages. Kidneys: The kidneys are homogeneous in attenuation on these limited noncontrast images. Compared to the previous examination, there are now 3 nonobstructing right renal calculi. These again range in si ze up to 4 mm. There is decreased in number from the previous study. There is no evidence for hydrone phrosis. There is no left renal calculi. There is no gross renal mass on these limited noncontrast im ages. Bowel: The bowel loops are normally placed within the abdomen and pelvis without evidence for dilatat ion or obstruction. There is no evidence for mass lesion. There are no inflammatory changes present. There is no evidence for free air. There is a normal appendix in the right lower quadrant. Bladder: Molina catheter is present within the bladder. : There is no evidence for pelvic mass or adenopathy. Vasculature: There is no evidence for focal aneurysmal dilatation of the abdominal aorta. Mild athero sclerotic calcification is present. Osseous structures: Degenerative changes are seen within the spine. IMPRESSION: 1. 3 nonobstructing right renal calculi are present. 2. Otherwise, no acute intra-abdominal or pelvic abnormality on these limited noncontrast images. 3. Nonacute findings are delineated above. ACT 112: Negative or not required by law. Electronically signed by: Anam Goddard M.D. 08/28/2021 7:31 AM
[2021-08-28 08:21] LABS: Basophils # (auto) 0.01 K/uL (0-0.2); Basophils % (auto) 0.1 %; Hematocrit (blood only) 39.3 % (42-52); Hemoglobin 13.1 g/dL (14.0-18.0); Immature Granulocytes # (auto) 0.02 K/uL (0.00-0.02); Immature Granulocytes % (auto) 0.2 %; Lymphocytes # (auto) 1.51 K/uL (1.2-3.4); Lymphocytes % (auto) 15.4 %; Mean Corpuscular Hemoglobin 28.8 pg (25-34); Mean Corpuscular Hgb Conc 33.3 g/dL (32-36); Mean Corpuscular Volume 86.4 fL (80-100); Mean Platelet Volume 10.1 fL (7.4-10.4); Monocytes # (auto) 0.93 K/uL (0.11-0.59); Monocytes % (auto) 9.5 %; Neutrophils # (auto) 7.16 K/uL (1.4-6.5); Neutrophils % (auto) 72.8 %; Platelet Count 321 K/uL (130-400); RDW Coefficient of Variation 16.4 % (11.5-14.5); RDW Standard Deviation 51.7 fL (36.4-46.3); Red Blood Count 4.55 M/uL (4.7-6.1); White Blood Count 9.83 K/uL (4.8-10.8)
[2021-08-28] MEDS: FOLIC ACID 1 MG TAB PO SCH (08:34)
[2021-08-28] MEDS: OXYBUTYNIN CHLORIDE 5 MG TAB PO SCH ×3 (08:34→21:25)
[2021-08-28] MEDS: lisinopril 40 MG TAB PO SCH (08:34)
[2021-08-28] MEDS: predniSONE 10 MG TABLET PO SCH (08:35)
[2021-08-28] MEDS: ATORVASTATIN 20 MG TAB PO SCH (08:35)
[2021-08-28] MEDS: amLODIPine BESYLATE 5 MG TAB PO SCH (08:35)
[2021-08-28] MEDS: FAMOTIDINE 40 MG TABLET PO SCH (08:35)
[2021-08-28] MEDS: BACLOFEN 10 MG TAB PO SCH ×3 (08:36→21:23)
[2021-08-28] MEDS: ENOXAPARIN INJ 40 MG/0.4 ML SYR SQ SCH (08:37)
[2021-08-28 08:51] LABS: Alanine Aminotransferase 14 U/L (7-52); Albumin Globulin Ratio 1.6 (0.9-2); Albumin Level 3.9 gm/dl (3.4-5.0); Alkaline Phosphatase 53 U/L (34-104); Anion Gap 10 (3-11); Aspartate Aminotransferase 10 U/L (13-39); BUN Creatinine Ratio 21.4 (10-20); Bilirubin,Total 0.8 mg/dl (0.2-1.0); Blood Urea Nitrogen 9 mg/dl (6-23); Calcium 8.8 mg/dl (8.5-10.1); Carbon Dioxide 24 mmol/L (21-32); Chloride 99 mmol/L (98-107); Creatinine Clr Calc Pharmacy 278.4 ml/min; Est GFR (African American) > 150.0 ml/min; Est GFR (Non-African American) 134.8 ml/min; Globulin 2.5 gm/dl (2.5-4.0); Glucose 133 mg/dl (70-99(Fasting)); Magnesium 1.7 mg/dl (1.7-2.4); Potassium 3.8 mmol/L (3.5-5.1); Sodium 133 mmol/L (136-145); Total Protein 6.4 gm/dl (6.0-8.3)
[2021-08-28] MEDS ORDERED: bisacodyL 10 MG SUPP PR PRN (09:26)
[2021-08-28] MEDS ORDERED: GLUCOSE 40% GEL 15 GM TUBE PO PRN (13:18)
[2021-08-28] MEDS ORDERED: CARBOHYDRATES FOR HYPOGLYCEMIA PO PRN (13:18)
[2021-08-28] MEDS ORDERED: GLUCAGON FOR INJ 1 MG VIAL SQ PRN (13:18)
[2021-08-28] MEDS ORDERED: GLUCOSE 10 TABS/TUBE PO PRN (13:18)
[2021-08-28] MEDS ORDERED: DEXTROSE 50% 50 ML SYRINGE IV PRN (13:18)
[2021-08-28] MEDS ORDERED: POLYETHYLENE (MIRALAX) 17 GM PACK PO PRN (15:51)
--- NOTE | 2021-08-28 16:07 | Hospitalist Progress Note ---
Date of Service August 28, 2021 Assessment & Plan (1) Catheter-associated urinary tract infection: Plan: Catheter associated UTI/history of ESBL E. coli/history of MDR Pseudomonas aeruginosa- He had a low-grade fever at home and his usual symptoms of UTI to include head ache, bilateral flank pain and abdominal pressure. Also with leukocytosis on admission which is now improved Typically changes out his suprapubic catheter once weekly and had done at the day of admission Urine culture growing gram-negative rods No blood cultures collected at the time of admission He received IV cefepime in the ER, however his previous UTIs were resistant to cefepime -Continue meropenem 500 g IV every 6 hours -Finish out LR at 80 mils per hour x1 L -Follow urine culture and sensitivities -Would recommend total of 7 days of therapy (2) History of ESBL E. 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 Patient is allergic to penicillins (4) Neurogenic bladder: Plan: Requiring suprapubic catheter Changes about once weekly (5) Urinary retention: Plan: Secondary to neurogenic bladder as above (6) HLD (hyperlipidemia): Plan: Continue atorvastatin (7) HTN (hypertension): Plan: Blood pressures are on the lower side now but were quite high on admission Continue amlodipine, hydralazine and lisinopril with hold parameters (8) Diabetes: Plan: Hold Metformin and glipizide Start Accu-Cheks and insulin sliding scale Check hemoglobin A1c in the morning (9) Pemphigoid: Plan: In the outpatient setting on methotrexate and prednisone Does have some open superficial wounds on his skin across the abdomen Wound care consult Hold home methotrexate during active infection Continue home dose of prednisone 10 mg daily No indication for stress dose steroids at this time (10) Quadriplegia: Plan: Chronic issue Has daily caregivers in his home but is looking into long-term care home placement Continue baclofen for spasticity Needs aggressive bowel regimen with bisacodyl suppositories daily-added this on Also add on MiraLAX daily as needed Needs frequent turning and total care (11) Suprapubic catheter: Plan: Noted above (12) Constipation: Plan: As above Added bowel regimen (13) Hyponatremia: Plan: Sodium mildly low at 133 Improved from previous with hydration Continue LR Follow BMP in the morning Plan: DVT prophylaxis Lovenox Disposition-continued stay, await urine culture results. There is a possibility he may need IV antibiotics in which case he would need either care home placement or stay in hospital until completed as he cannot administer them to himself at home and his caregivers are not allowed to do so either. Admission and Anticipated Discharge Date Admission Date: August 27, 2021 Results & Data Results & Data ([facility]) Vital Signs (Past 12 Hours) Vital Signs Temp Pulse Resp BP Pulse Ox 08/28/21 15:21 36.5 C 71 16 93/62 L 96 08/28/21 07:52 36.6 C 71 16 161/87 H 96 PG Care Time/CCT Total # of Minutes Spent Total Time Spent with Patient: Total time spent is greater than 50% in coordination of care (as documented) at patient's floor/unit and/or counseling patient: Coding Level of Care Code 57023 Subseq Hosp Care Lvl 2 Diagnoses Catheter-associated urinary tract infection T83.511A; N39.0 Encounter type: initial encounter Indwelling urinary catheter type: unspecified History of ESBL E. 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
[2021-08-28] MEDS: INSULIN ASPART PER UNIT SC SCH ×2 (18:10→21:29)
[2021-08-29] MEDS: LACTATED RINGER'S 1,000 ML IV SCH ×2 (02:24→16:35)
[2021-08-29] MEDS: MEROPENEM 500 MG in SYRINGE 0 ML IV SCH ×2 (05:21→09:55)
[2021-08-29 06:17] LABS: Basophils # (auto) 0.02 K/uL (0-0.2); Basophils % (auto) 0.3 %; Eosinophils # (auto) 0.22 K/uL (0-0.5); Eosinophils % (auto) 2.9 %; Hematocrit (blood only) 37.8 % (42-52); Hemoglobin 12.2 g/dL (14.0-18.0); Immature Granulocytes # (auto) 0.02 K/uL (0.00-0.02); Immature Granulocytes % (auto) 0.3 %; Lymphocytes # (auto) 1.68 K/uL (1.2-3.4); Lymphocytes % (auto) 21.8 %; Mean Corpuscular Hemoglobin 28.1 pg (25-34); Mean Corpuscular Hgb Conc 32.3 g/dL (32-36); Mean Corpuscular Volume 87.1 fL (80-100); Mean Platelet Volume 10.5 fL (7.4-10.4); Monocytes # (auto) 0.69 K/uL (0.11-0.59); Neutrophils # (auto) 5.07 K/uL (1.4-6.5); Neutrophils % (auto) 65.7 %; Platelet Count 276 K/uL (130-400); RDW Coefficient of Variation 16.6 % (11.5-14.5); Red Blood Count 4.34 M/uL (4.7-6.1)
[2021-08-29 06:50] LABS: Alanine Aminotransferase 13 U/L (7-52); Albumin Globulin Ratio 1.5 (0.9-2); Albumin Level 3.5 gm/dl (3.4-5.0); Alkaline Phosphatase 47 U/L (34-104); Anion Gap 7 (3-11); Aspartate Aminotransferase 9 U/L (13-39); Bilirubin,Total 0.8 mg/dl (0.2-1.0); Blood Urea Nitrogen 10 mg/dl (6-23); Calcium 9.3 mg/dl (8.5-10.1); Carbon Dioxide 26 mmol/L (21-32); Chloride 101 mmol/L (98-107); Creatinine Clr Calc Pharmacy 292.3 ml/min; Est GFR (African American) > 150.0 ml/min; Est GFR (Non-African American) 137.5 ml/min; Globulin 2.3 gm/dl (2.5-4.0); Glucose 139 mg/dl (70-99(Fasting)); Magnesium 1.8 mg/dl (1.7-2.4); Potassium 3.5 mmol/L (3.5-5.1); Sodium 134 mmol/L (136-145); Total Protein 5.8 gm/dl (6.0-8.3)
[2021-08-29 07:49] LABS: Estimated Average Glucose 169 mg/dl; Hemoglobin A1C 7.5 % (4.5-5.6)
[2021-08-29] MEDS: hydrALAZINE HCL 25 MG TAB PO SCH ×2 (09:32→20:17)
[2021-08-29] MEDS: lisinopril 40 MG TAB PO SCH (09:32)
[2021-08-29] MEDS: OXYBUTYNIN CHLORIDE 5 MG TAB PO SCH ×3 (09:32→20:17)
[2021-08-29] MEDS: FOLIC ACID 1 MG TAB PO SCH (09:32)
[2021-08-29] MEDS: amLODIPine BESYLATE 5 MG TAB PO SCH (09:33)
[2021-08-29] MEDS: BACLOFEN 10 MG TAB PO SCH ×3 (09:33→20:16)
[2021-08-29] MEDS: ATORVASTATIN 20 MG TAB PO SCH (09:33)
[2021-08-29] MEDS: FAMOTIDINE 40 MG TABLET PO SCH (09:33)
[2021-08-29] MEDS: predniSONE 10 MG TABLET PO SCH (09:33)
[2021-08-29] MEDS: ENOXAPARIN INJ 40 MG/0.4 ML SYR SQ SCH (09:39)
[2021-08-29] MEDS: INSULIN ASPART PER UNIT SC SCH ×4 (09:44→21:26)
[2021-08-29] MEDS: CLOBETASOL PROPIONATE 0.05% OINT 15 GM TUBE EXT SCH ×2 (11:21→20:17)
--- NOTE | 2021-08-29 12:55 | Hospitalist Progress Note ---
Date of Service August 29, 2021 Assessment & Plan (1) Catheter-associated urinary tract infection: Plan: Catheter associated UTI/history of ESBL E. coli/history of MDR Pseudomonas aeruginosa- - He had a low-grade fever at home and his usual symptoms of UTI to include h eadache, bilateral flank pain and abdominal pressure. -Leukocytosis improved - Typically changes out his suprapubic catheter once weekly and had done at the day of admission UC with Serratia, Cipro sensitive No blood cultures collected on admission Cefepime initially switched to meropenem based on past sensitivities. This is been narrowed to Cipro based on UC as above Follow on Cipro for 24 hours, then anticipate DC home if doing well. Would watch on narrowing given history of multiple infections and high readmission risk (2) History of ESBL E. 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: Plan: See above, history of fluoroquinolone resistance (4) Neurogenic bladder: Plan: Requiring suprapubic catheter Changes about once weekly (5) Urinary retention: Plan: Secondary to neurogenic bladder as above (6) HLD (hyperlipidemia): Plan: Continue atorvastatin (7) HTN (hypertension): Plan: Labile during admission Continue amlodipine Continue hydralazine Continue lisinopril Hold as needed for hypotension (8) Diabetes: Plan: Hold Metformin and glipizide Start Accu-Cheks and insulin sliding scale Check hemoglobin A1c in the morning (9) Pemphigoid: Plan: In the outpatient setting on methotrexate and prednisone Does have some open superficial wounds on his skin across the abdomen Wound care consulted. SensiCare ointment reapplied as needed, waffle boots, turn off sacrum Hold home methotrexate during active infection Continue home dose of prednisone 10 mg daily No indication for stress dose steroids at this time (10) Quadriplegia: Plan: Chronic issue Has daily caregivers in his home but is looking into long-term snf placement Continue baclofen for spasticity Needs aggressive bowel regimen with bisacodyl suppositories daily, continue this at this time Also add on MiraLAX daily as needed Needs frequent turning and total care (11) Suprapubic catheter: Plan: Noted above (12) Constipation: Plan: As above Added bowel regimen (13) Hyponatremia: Plan: Sodium mildly uptrend to 134 Improved from previous with hydration Continued IVF Follow BMP in the morning Plan: DVT prophylaxis Lovenox Disposition-continued stay, follow for 24 hours on conversion patient with high readmission risk and history of multiple UTIs. If doing well likely discharge tomorrow back to home health services, patient is arranging SNF services in the future but is not interested in this at this time. Admission and Anticipated Discharge Date Admission Date: August 27, 2021 Subjective Patient seen at bedside. Feels like he is improving, no fever/chills/sweats/suprapubic pain. No nausea/vomiting today. He is working on selling his home and considering SNF in the future, however this is not set up and anticipates returning home at this time, is not interested in SNF placement at this time. Reports has home health services, and feels he is at/near his normal baseline strength and ability. Denies chest pain, chest pressure, lightheadedness, dizziness, other symptoms this morning. Chronic quadriplegia with neurogenic bladder. Review of Systems Review of Systems: All systems reviewed & are unremarkable except as noted in Subjective Physical Exam Physical Exam: General: A&Ox3. NAD. Cooperative. HEENT: Atraumatic, normocephalic. Pulm: CTAB A&P. -wheezes, -rales, -rhonchi. Symmetrical chest rise. No increase in work of breathing. No respiratory distress. Cardiac: RRR, -mrg. Radial pulses intact and symmetrical. Abdominal: Nontender, nondistended, soft. BS present. Lower extremities: Chronic quadriplegia, exam limited Results & Data Results & Data ([facility]) Vital Signs (Past 12 Hours) Vital Signs Temp Pulse Resp BP Pulse Ox 08/29/21 07:05 36.5 C 65 16 171/108 H 97 PG Care Time/CCT Total # of Minutes Spent Total Time Spent with Patient: Total time spent is greater than 50% in coordination of care (as documented) at patient's floor/unit and/or counseling patient: Coding Level of Care Code 81515 Subseq Hosp Care Lvl 2 Diagnoses Catheter-associated urinary tract infection T83.511A; N39.0 Encounter type: initial encounter Indwelling urinary catheter type: unspecified History of ESBL E. 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
[2021-08-29] MEDS: CIPROFLOXACIN / D5W 400 MG/200 ML BAG IV SCH (16:35)
[2021-08-30] MEDS: LACTATED RINGER'S 1,000 ML IV SCH ×2 (03:29→18:45)
[2021-08-30] MEDS: CIPROFLOXACIN / D5W 400 MG/200 ML BAG IV SCH ×2 (03:29→18:45)
[2021-08-30 05:43] LABS: Basophils # (auto) 0.02 K/uL (0-0.2); Basophils % (auto) 0.2 %; Eosinophils # (auto) 0.23 K/uL (0-0.5); Eosinophils % (auto) 2.7 %; Hematocrit (blood only) 37.4 % (42-52); Hemoglobin 12.5 g/dL (14.0-18.0); Immature Granulocytes # (auto) 0.02 K/uL (0.00-0.02); Immature Granulocytes % (auto) 0.2 %; Lymphocytes # (auto) 1.93 K/uL (1.2-3.4); Lymphocytes % (auto) 22.7 %; Mean Corpuscular Hemoglobin 28.9 pg (25-34); Mean Corpuscular Hgb Conc 33.4 g/dL (32-36); Mean Corpuscular Volume 86.4 fL (80-100); Mean Platelet Volume 9.9 fL (7.4-10.4); Monocytes % (auto) 8.2 %; Neutrophils # (auto) 5.59 K/uL (1.4-6.5); Platelet Count 292 K/uL (130-400); RDW Coefficient of Variation 16.5 % (11.5-14.5); RDW Standard Deviation 52.7 fL (36.4-46.3); Red Blood Count 4.33 M/uL (4.7-6.1); White Blood Count 8.49 K/uL (4.8-10.8)
[2021-08-30 06:18] LABS: Alanine Aminotransferase 15 U/L (7-52); Albumin Globulin Ratio 1.6 (0.9-2); Albumin Level 3.9 gm/dl (3.4-5.0); Alkaline Phosphatase 46 U/L (34-104); Anion Gap 7 (3-11); Aspartate Aminotransferase 11 U/L (13-39); BUN Creatinine Ratio 23.9 (10-20); Bilirubin,Total 0.7 mg/dl (0.2-1.0); Blood Urea Nitrogen 11 mg/dl (6-23); Calcium 9.6 mg/dl (8.5-10.1); Carbon Dioxide 28 mmol/L (21-32); Chloride 100 mmol/L (98-107); Creatinine Clr Calc Pharmacy 254.2 ml/min; Est GFR (African American) > 150.0 ml/min; Est GFR (Non-African American) 129.8 ml/min; Globulin 2.4 gm/dl (2.5-4.0); Glucose 182 mg/dl (70-99(Fasting)); Magnesium 1.8 mg/dl (1.7-2.4); Potassium 3.8 mmol/L (3.5-5.1); Sodium 135 mmol/L (136-145); Total Protein 6.3 gm/dl (6.0-8.3)
[2021-08-30] MEDS: lisinopril 40 MG TAB PO SCH (07:38)
[2021-08-30] MEDS: predniSONE 10 MG TABLET PO SCH (07:38)
[2021-08-30] MEDS: BACLOFEN 10 MG TAB PO SCH ×2 (07:38→15:33)
[2021-08-30] MEDS: OXYBUTYNIN CHLORIDE 5 MG TAB PO SCH ×2 (07:38→15:33)
[2021-08-30] MEDS: hydrALAZINE HCL 25 MG TAB PO SCH (07:38)
[2021-08-30] MEDS: ATORVASTATIN 20 MG TAB PO SCH (07:38)
[2021-08-30] MEDS: amLODIPine BESYLATE 5 MG TAB PO SCH (07:38)
[2021-08-30] MEDS: FAMOTIDINE 40 MG TABLET PO SCH (07:38)
[2021-08-30] MEDS: ENOXAPARIN INJ 40 MG/0.4 ML SYR SQ SCH (07:39)
[2021-08-30] MEDS: INSULIN ASPART PER UNIT SC SCH ×3 (10:03→18:02)
[2021-08-30] MEDS: CLOBETASOL PROPIONATE 0.05% OINT 15 GM TUBE EXT SCH (15:34)
--- NOTE | 2021-08-30 17:23 | Discharge Summary ---
Date of Service August 30, 2021 Admission HPI Per Admitting Provider The patient is a 51-year-old male with a past medical history including quadriplegia, history of sacral decubitus, diabetes mellitus, pemphigoid, pemphigus foliaceous, hypertension, hyperlipidemia, osteomyelitis, history of multidrug-resistant Pseudomonas UTI, history of ESBL E. coli UTI, neurogenic bladder and urinary retention. Patient reports he does have his suprapubic catheter changed, and has noted abdominal and pelvic pressure. He had a temperature of 99.1 degrees prior to arrival. He reports that his suprapubic catheter is draining better since having been changed earlier in the afternoon. Principal Diagnosis Serratia UTI Discharge Exam General: A&Ox3. NAD. Cooperative. HEENT: Atraumatic, normocephalic. Pulm: CTAB A&P. -wheezes, -rales, -rhonchi. Symmetrical chest rise. No increase work of breathing. No respiratory distress. Cardiac: RRR, -mrg. Radial pulses intact and symmetrical. Abdominal: Nontender, nondistended, soft. BS present. Extremities:quadriplegia Discharge Data Allergies Allergy/AdvReac Type Severity Reaction Status Date / Time Sulfa (Sulfonamide Allergy Severe Swelling Verified 08/27/21 21:36 Antibiotics) of Lip/Tongue/Throat piperacillin [From Zosyn] Allergy Intermediate Rash Verified 08/27/21 21:36 tazobactam [From Zosyn] Allergy Intermediate Rash Verified 08/27/21 21:36 Consultations 08/27/21 22:35 ED Decision to Admit Stat Ordered Studies 08/27/21 20:15 CT abd pelvis wo con Urgent Hospital Course (1) Catheter-associated urinary tract infection: Jhonatan is a 51-year-old male who presented with concern for a catheter associated UTI, has multiple histories of ESBL E. coli and MDR Pseudomonas UTIs with a suprapubic catheter. His UC grew out Serratia sensitive to ciprofloxacin, he clinically improved on ciprofloxacin and was discharged back to his home caregivers. To do as outpatient: 1. Complete outpatient course of ciprofloxacin twice daily for Serratia UTI 7- day total course 2. Routine follow-up with PCP 3. Continued efforts to work on moving toward SNF, patient did not want SNF at discharge but is continuing the process of selling his home and working with outpatient caser to facilitate this in the future. He was with his normal level of strength and energy at time of discharge. 4. Blood pressure recheck. Patient with labile blood pressure, antihypertensives for hypotension on admission and then rapidly stabilized with increasing pressures. These were resumed and he was high in the morning, but less than 180 on provider recheck prior to discharge. Recommended outpatient pressure recheck within 1 week continuing home meds. 5. Methotrexate held while undergoing treatment for acute infection, resume after antibiotic course complete 6. Follow-up of diabetes management, patient slightly above goal at 7.5 at time of admission Catheter associated UTI/history of ESBL E. coli/history of MDR Pseudomonas aeruginosa- - He had a low-grade fever at home and his usual symptoms of UTI to include headache, bilateral flank pain and abdominal pressure. -Leukocytosis improved - Typically changes out his suprapubic catheter once weekly and had done at the day of admission UC with Serratia, Cipro sensitive No blood cultures collected on admission Cefepime initially switched to meropenem based on past sensitivities. This is been narrowed to Cipro based on UC as above (2) History of ESBL E. 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 Recommend follow-up as outpatient for additional management, was on SSI during admission (9) Pemphigoid: In the outpatient setting on methotrexate and prednisone Does have some open superficial wounds on his skin across the abdomen Wound care consulted. SensiCare ointment reapplied as needed, waffle boots, turn off sacrum Hold home methotrexate during active infection Continue home dose of prednisone 10 mg daily No indication for stress dose steroids at this time (10) Quadriplegia: Chronic issue Has daily caregivers in his home but is looking into long-term detention placement Continue baclofen for spasticity Needs aggressive bowel regimen with bisacodyl suppositories daily, continue this at this time Also add on MiraLAX daily as needed Needs frequent turning and total care (11) Suprapubic catheter: Noted above (12) Constipation: As above Added bowel regimen (13) Hyponatremia: Sodium mildly uptrend to 134 Improved from previous with hydration Continued IVF Follow BMP in the morning DVT prophylaxis Lovenox Disposition-continued stay, follow for 24 hours on conversion patient with high readmission risk and history of multiple UTIs. If doing well likely discharge tomorrow back to home health services, patient is arranging SNF services in the future but is not interested in this at this time. Total Time Total Time Spent Total Time Spent (In Minutes): Time spend day of discharge 40 minutes including direct patient care, documentation, review of labs and images, and coordination of care. Discharge Plan Discharge Items Patient Disposition: Home - Home Health Services Reason For Visit: URINARY RETENTION, UTI Discharge Diagnosis: Urinary tract infection Activity: Resume your previous activity Non-emergency contact: Primary Care Provider Call non-emergency contact if: you have any medication questions, your symptoms worsen, your pain is not controlled, your pain is unusual for you and you have a fever Follow-up/Referrals: Loi Dupree MD [Primary Care Provider] - 09/04/21 11:40 am ([place] Office location) Diet: Regular Addtl Attending Provider Instructions: You were seen in the hospital for a urinary tract infection. There was concern for the need for IV antibiotics due to past resistant organisms which have caused UTIs for you previously. Your urine culture grew a bacteria called Serratia marcescens, which was sensitive to an antibiotic called ciprofloxacin which has a pill version available. As such you are being discharged on oral ciprofloxacin as noted below and are not being discharged on IV antibiotics. If you develop worsening symptoms including fever, chills, sweats, change in urinary output, or pain at your suprapubic catheter site please seek prompt reevaluation. At day of discharge you felt like you are in your normal state of health and strength, and felt comfortable returning home to your caregivers. You are in the process of looking into residential facilities as an outpatient with outpatient caser, did not wish to pursue SNF placement at time of discharge. You have been prescribed an antibiotic, ciprofloxacin. Please take ciprofloxacin 500 mg every 12 hours (twice daily) for 5 additional days to complete 1 week of treatment. Your methotrexate has temporarily been held while you are on antibiotics. Please do not take methotrexate until you complete your antibiotic course and are advised to do so by your PCP. This is listed as continued on your med reconciliation below as it is anticipated that you will resume this, but please do not take this while on antibiotics. A follow-up appointment is being scheduled for you with your primary care provider as above. You should be seen within 1 week. If you do not receive a call within 48 hours to confirm your appointment, please contact his office at the number above. If you develop any new or worsening symptoms including fever, chills, sweats, chest pain, chest pressure, difficulty breathing, uncontrolled nausea/vomiting, rash, wheezing, passing out or nearly passing out, bleeding, black/bloody bowel movements, or other new or concerning symptoms please call your primary care physician, or call 911 for re-evaluation in the emergency department if you are very concerned. Pending Studies at Discharge: No Stand-Alone Forms: My [facility] [place] [employer], Smoking Cessation Medications and DC Order Prescriptions: New ciprofloxacin HCl 500 mg tablet 500 mg PO BID Qty: 10 RF: 0 Continued amlodipine 10 mg tablet 10 mg PO DAILY RF: 0 methotrexate sodium 2.5 mg tablet 15 mg PO WK RF: 0 oxybutynin chloride 5 mg tablet 5 mg PO TID RF: 0 metformin 500 mg tablet extended release 24 hr 1,000 mg PO AMPM RF: 0 baclofen 10 mg tablet 25 mg PO TID RF: 0 folic acid 1 mg tablet 1 mg PO 6XWK RF: 0 famotidine 40 mg tablet 40 mg PO DAILY RF: 0 prednisone 5 mg tablet 10 mg PO DAILY RF: 0 glipizide 10 mg tablet extended release 24hr 10 mg PO QAM RF: 0 atorvastatin 20 mg tablet 20 mg PO DAILY RF: 0 hydralazine 25 mg tablet 25 mg PO BID RF: 0 methenamine hippurate 1 gram Tablet 1 g PO BID RF: 0 lisinopril 40 mg tablet 40 mg PO DAILY Qty: 30 RF: 0 Discharge Orders: Discharge Order (Routine); Ordered 08/30/21 Ordered By: Franky Boucher/Other Patient Handouts: Managing Type 2 Diabetes, Special Foot Care for Diabetes Admission Data Admit Date/Time: 08/27/21 22:47 Attending Provider: Franky Kaur Admit Provider: Santana Villeda Primary Care Provider: Loi Dupree Other Providers: Santana Villeda Other Interventions: Discharge Summary Assessment (RN) Last Done: 08/30/21 14:46 Coding Level of Care Code D/C DAY MANAGEMENT >30 MINS Diagnoses Catheter-associated urinary tract infection T83.511A; N39.0 Encounter type: initial encounter Indwelling urinary catheter type: unspecified History of ESBL E. 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
== END 2021-08-30 20:00 | disposition home health service (06) ==
LOC: ED 20:07 → INTOOBSV 22:47 → 3W 22:47 → SUATTDRO 22:47 → 3W 08-28 01:24

== ENCOUNTER 2021-09-16 09:26 | Inpatient (IN) ==
[2021-09-16] MEDS ORDERED: ONDANSETRON INJ 2 MG/ML 2 ML VIAL IV STA ×2 (09:51→16:40)
[2021-09-16] MEDS ORDERED: ACETAMINOPHEN 1,000 MG/100 ML VIAL IV STA (09:51)
--- NOTE | 2021-09-16 09:51 | Emergency Department Note ---
History of Present Illness General Chief complaint: Abdominal Pain Time Seen by Provider: 09/16/21 09:36 Source: patient Mode of arrival: EMS Limitations: no limitations History of Present Illness Provider complaint: Abdominal pain, nausea Onset (ago): hour(s) Location: abdomen Associated symptoms: + diaphoresis, + loss of appetite, + malaise and + nausea /vomiting; no chest pain or no fever/chills Treatments prior to arrival: none This is a 51-year-old male who presents emergency department complaining of abdominal bloating, pain, nausea and vomiting. Patient states symptoms began overnight with increased bloating he then developed nausea and vomiting. Patient that she did have a recent urinary tract infection although his symptoms were different. He was discharged from the hospital on August 31. Patient denies any recent change in output via his chronic indwelling Molina catheter or his stools. He states he did have a normal bowel movement yesterday and was passing gas. He typically has bowel movements every other day. He is not noticed that he is passing gas this morning. Patient denies fevers or chills, although states he has gotten sweaty with recurrent episodes of emesis. Patient denies any blood in the emesis. Patient states constellation of symptoms feel similar to a prior bowel obstruction for which he was admitted. Pt seen during a time of high acuity and national emergency pandemic while wearing PPE. Home Medications Medication Instructions Recorded Confirmed Type amlodipine 10 mg tablet 10 mg PO QAM 05/11/18 09/16/21 History baclofen 10 mg tablet 25 mg PO TID 05/11/18 09/16/21 History folic acid 1 mg tablet 1 mg PO [id number] 05/11/18 09/16/21 History metformin 500 mg tablet,extended 1,000 mg PO AMPM 05/11/18 09/16/21 History release 24 hr methotrexate sodium 2.5 mg tablet 15 mg PO WK 05/11/18 09/16/21 History oxybutynin chloride 5 mg tablet 5 mg PO TID 05/11/18 09/16/21 History famotidine 40 mg tablet 40 mg PO HS 03/30/20 09/16/21 History methenamine hippurate 1 gram tablet 1 g PO BID 11/05/20 09/16/21 History prednisone 5 mg tablet 10 mg PO QAM 04/27/21 09/16/21 History atorvastatin 20 mg tablet 20 mg PO HS 08/27/21 09/16/21 History glipizide 10 mg tablet, extended 10 mg PO QAM 08/27/21 09/16/21 History release 24 hr hydralazine 25 mg tablet 25 mg PO BID 08/27/21 09/16/21 History clobetasol 0.05 % topical cream 1 applic TOPICAL BID PRN 09/16/21 09/16/21 History lisinopril 40 mg tablet 40 mg PO HS 09/16/21 09/16/21 History Allergies Allergy/AdvReac Type Severity Reaction Status Date / Time Sulfa (Sulfonamide Allergy Severe Swelling Verified 09/16/21 13:49 Antibiotics) of Lip/Tongue/Throat piperacillin [From Zosyn] Allergy Intermediate Rash Verified 09/16/21 13:49 tazobactam [From Zosyn] Allergy Intermediate Rash Verified 09/16/21 13:49 Past Med/Surg History Medical History Acute hyponatremia Acute UTI Acute UTI Bladder stone Diabetes Diarrhea Headache HLD (hyperlipidemia) HTN (hypertension) Hypertension Hyponatremia Ileus Lactic acidosis Nephrolithiasis Neurogenic bladder Osteomyelitis Pemphigoid Pemphigus foliaceus Sacral wound Suprapubic catheter UTI (urinary tract infection) due to urinary indwelling catheter Surgical History History of hip surgery History of suprapubic catheter Previous back surgery Family History Mother Cancer Father Diabetes Grandfather Diabetes Social History Smoking Status: Former smoker Second Hand Exposure: No; Do You Dip or Chew Tobacco: No; Tobacco Cessation Education Requested by Patient: No Hx Alcohol Use: No Hx Substance Use: No Preferred Language: Algerian Communication Ability: Effective 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 Review of Systems A total of 10 systems reviewed and were otherwise negative All systems reviewed & are unremarkable except as noted in HPI & below Physical Exam Vital Signs Vital Signs - 24 hr 09/16/21 09:43 09/16/21 11:18 09/16/21 13:00 Temperature 36.8 C Temperature Source Oral Pulse Rate 112 H Pulse Rate [Apical] 110 H 67 Pulse Rhythm [Apical] Regular Regular Pulse Strength [Apical] Normal Respiratory Rate 14 16 18 Respiratory Effort / Characteristics Non-Labored Spontaneous Respiratory Depth Normal Normal Normal Respiratory Pattern Regular Blood Pressure 155/109 H Blood Pressure [Left Arm] 122/90 107/68 Blood Pressure Mean 124 Blood Pressure Mean [Left Arm] 100 81 Blood Pressure Position Sitting Pulse Oximetry 96 95 96 Oxygen Delivery Method Room Air Room Air Room Air Oxygen Flow Rate Sepsis Recent Fever Within 48 Hours No Sepsis New/Unexplained Change in Mental Status No Sepsis Action Taken by Nursing No Action Required 09/16/21 14:48 09/16/21 15:16 09/16/21 17:00 Temperature 36.6 C Temperature Source Oral Pulse Rate Pulse Rate [Apical] 77 91 H Pulse Rhythm [Apical] Regular Regular Pulse Strength [Apical] Respiratory Rate 15 23 Respiratory Effort / Characteristics Respiratory Depth Normal Normal Respiratory Pattern Blood Pressure Blood Pressure [Left Arm] 111/82 105/71 Blood Pressure Mean Blood Pressure Mean [Left Arm] 91 82 Blood Pressure Position Pulse Oximetry 99 97 Oxygen Delivery Method Room Air Nasal Cannula Oxygen Flow Rate 2 Sepsis Recent Fever Within 48 Hours Sepsis New/Unexplained Change in Mental Status Sepsis Action Taken by Nursing GENERAL: alert, ill appearing, well nourished, mild distress, non-toxic, holding an emesis basin EYE EXAM: normal conjunctiva, PERRL and EOM's grossly intact OROPHARYNX: no exudate, no erythema, lips, buccal mucosa, and tongue normal and mucous membranes are moist NECK: supple, no nuchal rigidity, no adenopathy, non-tender LUNGS: Clear to auscultation. Normal chest wall mechanics, no w/r/r HEART: no murmurs, S1 normal and S2 normal ABDOMEN: abdomen mildly distended, generalized discomfort with palpation, hyperactive bowel sounds, mild tympany with percussion, no masses, no rebound or guarding. BACK: Back is symmetrical on inspection and there is no deformity, no midline tenderness, no CVA tenderness. SKIN: no rashes and no bruising UPPER EXTREMITIES: upper extremities are grossly normal. nml pulses b/l. Atrophy noted to bilateral hands with decreased movement. LOWER EXTREMITIES: Chronic atrophy and contractures noted, nml pulses b/l. NEURO EXAM: Normal sensorium, cranial nerves II-XII grossly intact, normal speech. Gross sensation intact. Course Course 1215: Pt states nausea is improved. Updated on results. 1422: Patient now having shaking chills. Patient is concerned for possible occult urinary infection as he has had these previously. Patient states he still not passing any stool, nausea is improved although not resolved. Patient states he still feels significant abdominal bloating and distention. 1645: Patient states he still having intermittent shaking chills, he states he is now having worsening nausea again and still feels significant abdominal distention. Discussed with patient additional lab testing. Given persistent and recurrent symptoms, as well as patient's complicated past medical history, will cover for possible evolving UTI and discuss with hospitalist for inpatient treatment. Administered Medications Enoxaparin Sodium (Enoxaparin Inj 40 Mg/0.4 Ml Syr) 40 mg SQ HS SAHIL Stop: 10/16/21 21:14 Last Admin: 09/16/21 22:21 Dose: 40 mg Documented by: [id number] Lactated Ringer's (Lr) 1,000 mls @ 125 mls/hr IV .Q8H SAHIL Stop: 10/16/21 16:44 Last Admin: 09/17/21 01:07 Dose: 125 mls/hr Documented by: [id number] Infusion: 09/17/21 00:59 Dose: 125 mls/hr Documented by: [id number] Admin: 09/16/21 16:59 Dose: 125 mls/hr Documented by: [id number] Famotidine 20 mg/ Syringe 5 mls @ 2.5 mls/min IV DAILY SAHIL Stop: 10/16/21 21:04 Last Admin: 09/16/21 22:21 Dose: 2.5 mls/min Documented by: [id number] Acetaminophen (Ofirmev) 1,000 mg in 100 mls @ 400 mls/hr IV Q8H PRN PRN Reason: Pain or Fever Stop: 09/20/21 01:19 Last Infusion: 09/17/21 02:12 Dose: 0 mls/hr Documented by: [id number] Admin: 09/17/21 01:57 Dose: 400 mls/hr Documented by: [id number] Metoclopramide HCl (Metoclopramide Hcl Inj 5 Mg/Ml 2 Ml Vial) 5 mg IV Q6H PRN PRN Reason: nausea/vomitting Stop: 10/16/21 21:04 Last Admin: 09/17/21 06:04 Dose: 5 mg Documented by: [id number] Miscellaneous (Order Awaiting [Clobetasol 0.05% Cream]) 1 ea N/A QS [facility] Stop: 10/17/21 00:00 Last Admin: 09/17/21 07:25 Dose: Not Given Documented by: [id number] Admin: 09/17/21 00:42 Dose: Not Given Documented by: [id number] Ondansetron HCl (Ondansetron Inj 2 Mg/Ml 2 Ml Vial) 4 mg IV Q6 PRN PRN Reason: nausea/vomitting Stop: 10/16/21 18:27 Last Admin: 09/16/21 22:28 Dose: 4 mg Documented by: [id number] Discontinued Medications Glycerin (Glycerin Adult 12 Supp/Box Supp) 1 supp [place] NOW ONE Stop: 09/16/21 13:04 Last Admin: 09/16/21 13:33 Dose: 1 supp Documented by: [id number] Sodium Chloride (Nss 1000ml) 1,000 mls @ 125 mls/hr IV .Q8H [facility] Stop: 10/16/21 09:44 Last Infusion: 09/16/21 21:13 Dose: 0 mls/hr Documented by: [id number] Admin: 09/16/21 19:38 Dose: 125 mls/hr Documented by: [id number] Infusion: 09/16/21 19:16 Dose: 125 mls/hr Documented by: [id number] Admin: 09/16/21 11:16 Dose: 125 mls/hr Documented by: [id number] Acetaminophen (Ofirmev) 1,000 mg in 100 mls @ 400 mls/hr IV NOW STA Stop: 09/16/21 10:05 Last Infusion: 09/16/21 11:50 Dose: 0 mls/hr Documented by: [id number] Admin: 09/16/21 11:17 Dose: 400 mls/hr Documented by: [id number] Magnesium Sulfate/Dextrose (Magnesium Sulfate / D5w) 1 gm in 100 mls @ 100 mls/hr IV NOW STA Stop: 09/16/21 12:11 Last Infusion: 09/16/21 13:18 Dose: 0 mls/hr Documented by: [id number] Admin: 09/16/21 12:13 Dose: 100 mls/hr Documented by: [id number] Cefepime HCl (Maxipime) 2,000 mg in 20 mls @ 5 mls/min IV NOW STA; Protocol Stop: 09/16/21 16:44 Last Admin: 09/16/21 16:59 Dose: 5 mls/min Documented by: [id number] Magnesium Sulfate/Dextrose (Magnesium Sulfate / D5w) 1 gm in 100 mls @ 50 mls/hr IV Q2H STA Stop: 09/16/21 21:13 Last Infusion: 09/17/21 00:54 Dose: 0 mls/hr Documented by: [id number] Admin: 09/16/21 22:50 Dose: 50 mls/hr Documented by: [id number] Ioversol (Optiray 320 100ml) 97 ml IV ONCE ONE Stop: 09/16/21 11:59 Last Admin: 09/16/21 11:59 Dose: 97 ml Documented by: [id number] Metoclopramide HCl (Metoclopramide Hcl Inj 5 Mg/Ml 2 Ml Vial) 5 mg IV ONE ONE Stop: 09/16/21 13:04 Last Admin: 09/16/21 13:33 Dose: 5 mg Documented by: [id number] Ondansetron HCl (Ondansetron Inj 2 Mg/Ml 2 Ml Vial) 4 mg IV NOW STA Stop: 09/16/21 09:52 Last Admin: 09/16/21 11:17 Dose: 4 mg Documented by: [id number] Ondansetron HCl (Ondansetron Inj 2 Mg/Ml 2 Ml Vial) 4 mg IV NOW STA Stop: 09/16/21 16:41 Last Admin: 09/16/21 16:59 Dose: 4 mg Documented by: [id number] Medical Decision Making Differential Diagnosis Differential: Gastroenteritis, Food Borne, Esophageal Perforation, , Electrolyte Abnormality, Dehydration, Intraabdominal Infection, UTI/Pyelonephritis, Bowel Obstruction, Biliary Pathology, amongst other pathology entertained. Medical Records Attestation: I reviewed the patient's medical records. Home Medications Current Medication List: was personally reviewed by me Laboratory Data Attestation: I reviewed the patient's lab results. Result diagrams: 09/17/21 07:13 09/17/21 07:13 Lab Results 09/16/21 09/16/21 09/16/21 Range/Units 10:31 10:31 10:32 WBC 12.68 H (4.8-10.8) K/uL RBC 4.74 (4.7-6.1) M/uL Hgb 13.5 L (14.0-18.0) g/dL Hct 40.5 L (42-52) % MCV 85.4 (80-100) fL MCH 28.5 (25-34) pg MCHC 33.3 (32-36) g/dL RDW Std Deviation 49.4 H (36.4-46.3) fL RDW Coeff of Sandor 15.8 H (11.5-14.5) % Plt Count 343 (130-400) K/uL MPV 10.2 (7.4-10.4) fL Immature Gran % (Auto) 0.2 % Neut % (Auto) 80.2 % Lymph % (Auto) 8.7 % [place] % (Auto) 8.1 % Eos % (Auto) 2.6 % Baso % (Auto) 0.2 % Neut # (Auto) 10.17 H (1.4-6.5) K/uL Lymph # (Auto) 1.10 L (1.2-3.4) K/uL [place] # (Auto) 1.03 H (0.11-0.59) K/uL Eos # (Auto) 0.33 (0-0.5) K/uL Baso # (Auto) 0.02 (0-0.2) K/uL Immature Gran # (Auto) 0.03 H (0.00-0.02) K/uL Sodium 132 L (136-145) mmol/L Potassium 3.3 L (3.5-5.1) mmol/L Chloride 94 L (98-107) mmol/L Carbon Dioxide 24 (21-32) mmol/L Anion Gap 14 H (3-11) BUN 8 (6-23) mg/dl Creatinine 0.51 L (0.6-1.4) mg/dl Est Cr Clr Drug Dosing 226.0 ml/min Est GFR ( Amer) 144.2 ml/min Est GFR (Non-Af Amer) 124.5 ml/min BUN/Creatinine Ratio 15.7 (10-20) Glucose 204 H (70-99(Fasting)) mg/dl Lactate (0.4-2.0) mmol/L Calcium 9.4 (8.5-10.1) mg/dl Magnesium 1.6 L (1.7-2.4) mg/dl Total Bilirubin 0.8 (0.2-1.0) mg/dl AST 14 (13-39) U/L ALT 19 (7-52) U/L Alkaline Phosphatase 58 (34-104) U/L Troponin I < 0.03 (0-0.04) ng/ml Total Protein 7.1 (6.0-8.3) gm/dl Albumin 4.1 (3.4-5.0) gm/dl Globulin 3.0 (2.5-4.0) gm/dl Albumin/Globulin Ratio 1.4 (0.9-2) Lipase 27 (11-82) U/L Procalcitonin < 0.05 (0-0.5) ng/ml SARS-CoV-2, RNA, NAAT (NEGATIVE) 09/16/21 09/16/21 09/16/21 Range/Units 16:00 17:20 17:46 WBC (4.8-10.8) K/uL RBC (4.7-6.1) M/uL Hgb (14.0-18.0) g/dL Hct (42-52) % MCV (80-100) fL MCH (25-34) pg MCHC (32-36) g/dL RDW Std Deviation (36.4-46.3) fL RDW Coeff of Sandor (11.5-14.5) % Plt Count (130-400) K/uL MPV (7.4-10.4) fL Immature Gran % (Auto) % Neut % (Auto) % Lymph % (Auto) % [place] % (Auto) % Eos % (Auto) % Baso % (Auto) % Neut # (Auto) (1.4-6.5) K/uL Lymph # (Auto) (1.2-3.4) K/uL [place] # (Auto) (0.11-0.59) K/uL Eos # (Auto) (0-0.5) K/uL Baso # (Auto) (0-0.2) K/uL Immature Gran # (Auto) (0.00-0.02) K/uL Sodium (136-145) mmol/L Potassium (3.5-5.1) mmol/L Chloride (98-107) mmol/L Carbon Dioxide (21-32) mmol/L Anion Gap (3-11) BUN (6-23) mg/dl Creatinine (0.6-1.4) mg/dl Est Cr Clr Drug Dosing ml/min Est GFR ( Amer) ml/min Est GFR (Non-Af Amer) ml/min BUN/Creatinine Ratio (10-20) Glucose (70-99(Fasting)) mg/dl Lactate 2.7 H* 2.1 H* (0.4-2.0) mmol/L Calcium (8.5-10.1) mg/dl Magnesium (1.7-2.4) mg/dl Total Bilirubin (0.2-1.0) mg/dl AST (13-39) U/L ALT (7-52) U/L Alkaline Phosphatase (34-104) U/L Troponin I (0-0.04) ng/ml Total Protein (6.0-8.3) gm/dl Albumin (3.4-5.0) gm/dl Globulin (2.5-4.0) gm/dl Albumin/Globulin Ratio (0.9-2) Lipase (11-82) U/L Procalcitonin (0-0.5) ng/ml SARS-CoV-2, RNA, NAAT NEGATIVE (NEGATIVE) Imaging Data Radiologist's Impression: Abdomen/Pelvis CT 09/16/21 09:45 CT SCAN OF THE ABDOMEN AND PELVIS WITH IV CONTRAST CLINICAL HISTORY: Nausea and vomiting. Bloating. COMPARISON STUDY: Abdominal CT dated 08/27/2021. TECHNIQUE: Following the IV administration of 97 cc of Optiray 320, CT scan of the abdomen and pelvis is performed from the lung bases to the proximal femora. Images are reviewed in the axial, sagittal, and coronal planes. IV contrast was administered without complication. A dose lowering technique was utilized a dhering to the principles of ALARA. The examination is degraded by large body habitus, and by streak artifact from the body wall abutting the CT gantry. CT DOSE: 2110.05 mGy.cm FINDINGS: Lung bases: The heart is normal in size and without pericardial effusion. The lung bases are clear. Liver: The contrast-enhanced liver is enlarged, measuring 19.6 cm in length. The liver demonstrates diffusely diminished attenuation consistent with hepatic steatosis. Mild fatty sparing is seen adjacent to gallbladder fossa. There is no intrahepatic biliary ductal dilatation. The hepatic veins and portal veins are patent. Gallbladder: Unremarkable. Spleen: Normal in size and attenuation. Pancreas: Unremarkable. 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 The right adrenal gland is normal in appearance. Kidneys: The contrast enhanced kidneys demonstrate mild cortical atrophy and are without hydronephrosis. The kidneys enhance symmetrically. There are at least 7 nonobstructing right renal calculi which measure up to 5 mm. No left renal calculi are clearly identified on this contrast-enhanced examination. There is no ureteral stone. Abdominal vasculature: The abdominal aorta is normal in course and caliber noting moderate atherosclerotic calcification. Bowel: There is no bowel obstruction. The small bowel loops are normal in caliber. There is significant gaseous distention of the right colon which measures up to 8 cm in diameter. Moderate fecal retention is noted throughout the left colon, greatest in the rectosigmoid. There is no significant colonic wall thickening or surrounding inflammation. No pneumatosis intestinalis is seen.. The appendix is well-visualized and normal. Peritoneum: There is no intraperitoneal free air or abdominal ascites. Lymphadenopathy: None. Pelvic viscera: The bladder is partially decompressed around a suprapubic catheter. Tiny nonspecific foci of gas are present within the bladder lumen. The prostate and seminal vesicles are normal as imaged. There is diffuse atrophy of the pelvic musculature. Skeletal structures: The skeletal structures are osteopenic. There are bilateral pars defects at L5 and mild to moderate lumbosacral spondylosis. Chronic deformity of the pelvis is unchanged with heterotopic soft tissue ossification above the greater trochanter of the left femur. No lytic or blastic lesions are seen. IMPRESSION: 1. No acute infectious or inflammatory findings are identified in the abdomen or pelvis. 2. The small bowel loops are normal in caliber with no evidence of small bowel obstruction. 3. There is significant gaseous distention of the right colon with moderate fecal retention throughout the left colon. This is greatest in the rectosigmoid. These findings likely represent colonic ileus. Mild functional obstruction related to fecal load could also have this appearance. Clinical correlation will be essential. 4. Hepatomegaly and hepatic steatosis. 5. Right-sided nephrolithiasis. 6. Additional findings as above. ACT 112: Negative or not required by law. Electronically signed by: Bartolome Mckay M.D. 09/16/2021 12:14 PM ECG Data Attestation: I personally reviewed and interpreted this ECG as follows: Indication: + abdominal pain Rate (beats per minute): 99 Rhythm: + normal sinus ECG Intervals/blocks: + Normal QRS and + Normal QT ECG Otis: + Normal ECG ST segments: + Nonspecific ST abnormalities ECG Findings: + PACs Additional Comments: Baseline artifact noted MDM Narrative This is a 51-year-old male, incomplete quadriplegic with an indwelling Molina catheter and history of prior bowel obstructions who presents due to concern for increasing abdominal distention, nausea and vomiting. Patient most concerned initially about possible bowel obstruction. Labs are drawn and sent, and patient sent for CT imaging eventually. Patient did receive Zofran and then Reglan to try and help with nausea. No bowel obstruction noted on CT, patient did have increased stool load noted to the descending colon and sigmoid area. He was given a glycerin suppository. Patient does use a specific bowel regimen per his description every other day to have a bowel movement. Patient had persistent nausea despite several medications. He also continued to complain of distention. On one of my rechecks it appeared the patient was having rigors, due to concern for risk of evolving sepsis, cultures, procalcitonin, lactic acid were added. Given recent urinary tract infection, I did review cultures, and I added cefepime empirically. Case discussed with hospitalist due to persistent symptoms and high risk of complication. An order was placed for continuous cardiac monitoring. The monitor shows a rate of _90_ with _normal sinus_ rhythm. Impression & Plan Nausea & vomiting, Quadriplegia, Sacral wound, Abdominal distension, Chronic indwelling Molina catheter, Hypokalemia Discharge Plan Visit Data Chief Complaint: Abdominal Pain ED Provider: Michelle Waldron Discharge Problem: Nausea & vomiting, Quadriplegia, Sacral wound, Abdominal distension, Chronic indwelling Molina catheter, Hypokalemia Patient Disposition: Admitted As Inpatient Discharge Instructions Interventions: ED Discharge Assessment Last Done: 09/16/21 20:15
[2021-09-16 10:40] LABS: Basophils # (auto) 0.02 K/uL (0-0.2); Basophils % (auto) 0.2 %; Eosinophils # (auto) 0.33 K/uL (0-0.5); Eosinophils % (auto) 2.6 %; Hematocrit (blood only) 40.5 % (42-52); Hemoglobin 13.5 g/dL (14.0-18.0); Immature Granulocytes # (auto) 0.03 K/uL (0.00-0.02); Immature Granulocytes % (auto) 0.2 %; Lymphocytes % (auto) 8.7 %; Mean Corpuscular Hemoglobin 28.5 pg (25-34); Mean Corpuscular Hgb Conc 33.3 g/dL (32-36); Mean Corpuscular Volume 85.4 fL (80-100); Mean Platelet Volume 10.2 fL (7.4-10.4); Monocytes # (auto) 1.03 K/uL (0.11-0.59); Monocytes % (auto) 8.1 %; Neutrophils # (auto) 10.17 K/uL (1.4-6.5); Neutrophils % (auto) 80.2 %; Platelet Count 343 K/uL (130-400); RDW Coefficient of Variation 15.8 % (11.5-14.5); RDW Standard Deviation 49.4 fL (36.4-46.3); Red Blood Count 4.74 M/uL (4.7-6.1); White Blood Count 12.68 K/uL (4.8-10.8)
[2021-09-16 11:06] LABS: Alanine Aminotransferase 19 U/L (7-52); Albumin Globulin Ratio 1.4 (0.9-2); Albumin Level 4.1 gm/dl (3.4-5.0); Alkaline Phosphatase 58 U/L (34-104); Anion Gap 14 (3-11); Aspartate Aminotransferase 14 U/L (13-39); BUN Creatinine Ratio 15.7 (10-20); Bilirubin,Total 0.8 mg/dl (0.2-1.0); Blood Urea Nitrogen 8 mg/dl (6-23); Calcium 9.4 mg/dl (8.5-10.1); Carbon Dioxide 24 mmol/L (21-32); Chloride 94 mmol/L (98-107); Est GFR (African American) 144.2 ml/min; Est GFR (Non-African American) 124.5 ml/min; Glucose 204 mg/dl (70-99(Fasting)); Lipase 27 U/L (11-82); Magnesium 1.6 mg/dl (1.7-2.4); Potassium 3.3 mmol/L (3.5-5.1); Sodium 132 mmol/L (136-145); Total Protein 7.1 gm/dl (6.0-8.3)
[2021-09-16 11:07] LABS: Troponin I < 0.03 ng/ml (0-0.04)
[2021-09-16] MEDS ORDERED: MAGNESIUM SULFATE / D5W 1 GM/100 ML BAG IV STA ×2 (11:12→19:14)
[2021-09-16] MEDS: SODIUM CHLORIDE 0.9% 1000ML 1,000 ML IV SCH ×2 (11:16→19:38)
--- NOTE | 2021-09-16 11:26 | Electrocardiogram Report ---
Test Reason : Blood Pressure : / mmHG Vent. Rate : 099 BPM Atrial Rate : 099 BPM P-R Int : 156 ms QRS Dur : 086 ms QT Int : 350 ms P-R-T Axes : 030 034 054 degrees QTc Int : 449 ms Poor data quality, interpretation may be adversely affected Sinus rhythm with Premature atrial complexes with Aberrant conduction vs. PVC Otherwise normal ECG When compared with ECG of 27-APR-2021 01:17, Aberrant conduction is now Present Vent. rate has increased BY 42 BPM Confirmed by Ben Rondon ([id number]) on 09/16/2021 11:25:55 AM Referred By: Confirmed By:Cholo Rondon
[2021-09-16] MEDS ORDERED: OPTIRAY 320 100ml IV ONE (11:58)
--- NOTE | 2021-09-16 12:15 | CT Scan Report ---
CT SCAN OF THE ABDOMEN AND PELVIS WITH IV CONTRAST CLINICAL HISTORY: Nausea and vomiting. Bloating. COMPARISON STUDY: Abdominal CT dated 08/27/2021. TECHNIQUE: Following the IV administration of 97 cc of Optiray 320, CT scan of the abdomen and pelvi s is performed from the lung bases to the proximal femora. Images are reviewed in the axial, sagittal , and coronal planes. IV contrast was administered without complication. A dose lowering technique wa s utilized adhering to the principles of ALARA. The examination is degraded by large body habitus, an d by streak artifact from the body wall abutting the CT gantry. CT DOSE: 2110.05 mGy.cm FINDINGS: Lung bases: The heart is normal in size and without pericardial effusion. The lung bases are clear. Liver: The contrast-enhanced liver is enlarged, measuring 19.6 cm in length. The liver demonstrates d iffusely diminished attenuation consistent with hepatic steatosis. Mild fatty sparing is seen adjacen t to gallbladder fossa. There is no intrahepatic biliary ductal dilatation. The hepatic veins and por didi veins are patent. Gallbladder: Unremarkable. Spleen: Normal in size and attenuation. Pancreas: Unremarkable. 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 The right adrenal gland is no rmal in appearance. Kidneys: The contrast enhanced kidneys demonstrate mild cortical atrophy and are without hydronephros is. The kidneys enhance symmetrically. There are at least 7 nonobstructing right renal calculi which measure up to 5 mm. No left renal calculi are clearly identified on this contrast-enhanced examinatio n. There is no ureteral stone. Abdominal vasculature: The abdominal aorta is normal in course and caliber noting moderate atheroscle rotic calcification. Bowel: There is no bowel obstruction. The small bowel loops are normal in caliber. There is significa nt gaseous distention of the right colon which measures up to 8 cm in diameter. Moderate fecal retent ion is noted throughout the left colon, greatest in the rectosigmoid. There is no significant colonic wall thickening or surrounding inflammation. No pneumatosis intestinalis is seen.. The appendix is well-visualized and normal. Peritoneum: There is no intraperitoneal free air or abdominal ascites. Lymphadenopathy: None. Pelvic viscera: The bladder is partially decompressed around a suprapubic catheter. Tiny nonspecific foci of gas are present within the bladder lumen. The prostate and seminal vesicles are normal as madalyn ged. There is diffuse atrophy of the pelvic musculature. Skeletal structures: The skeletal structures are osteopenic. There are bilateral pars defects at L5 a nd mild to moderate lumbosacral spondylosis. Chronic deformity of the pelvis is unchanged with hetero topic soft tissue ossification above the greater trochanter of the left femur. No lytic or blastic le sions are seen. IMPRESSION: 1. No acute infectious or inflammatory findings are identified in the abdomen or pelvis. 2. The small bowel loops are normal in caliber with no evidence of small bowel obstruction. 3. There is significant gaseous distention of the right colon with moderate fecal retention throughou t the left colon. This is greatest in the rectosigmoid. These findings likely represent colonic ileus . Mild functional obstruction related to fecal load could also have this appearance. Clinical correla tion will be essential. 4. Hepatomegaly and hepatic steatosis. 5. Right-sided nephrolithiasis. 6. Additional findings as above. ACT 112: Negative or not required by law. Electronically signed by: Bartolome Mckay M.D. 09/16/2021 12:14 PM
[2021-09-16] MEDS ORDERED: GLYCERIN ADULT 12 SUPP/BOX SUPP PR ONE (13:03)
[2021-09-16] MEDS ORDERED: METOCLOPRAMIDE HCL INJ 5 MG/ML 2 ML VIAL IV ONE (13:03)
[2021-09-16] MEDS ORDERED: CEFEPIME 2,000 MG/20 ML VIAL IV STA (16:41)
[2021-09-16] MEDS: LACTATED RINGER'S 1,000 ML IV SCH (16:59)
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
--- NOTE | 2021-09-16 20:07 | XRay Report ---
XR KUB/Abdomen 1 view CLINICAL HISTORY: post NGT placement- evaluate for placment TECHNIQUE: 1 view of the abdomen was obtained. Comparison: Comparison is made to abdomen radiograph 05/01/2021 FINDINGS: Enteric tube side-port and tip lie within the stomach. The osseous structures are grossly unremarkabl e. Prominent bowel gas is seen in loops of large bowel, similar in appearance to prior exam. IMPRESSION: Satisfactory position of enteric tube. ACT 112: Negative or not required by law. Electronically signed by: John Rizzo M.D. 09/16/2021 8:05 PM
[2021-09-16] MEDS ORDERED: METOCLOPRAMIDE HCL INJ 5 MG/ML 2 ML VIAL IV PRN (21:05)
[2021-09-16] MEDS: ENOXAPARIN INJ 40 MG/0.4 ML SYR SQ SCH (22:21)
[2021-09-16] MEDS: FAMOTIDINE 20 MG in SYRINGE 3 ML IV SCH (22:21)
[2021-09-16] MEDS: ONDANSETRON INJ 2 MG/ML 2 ML VIAL IV PRN (22:28)
[2021-09-17] MEDS: [UNRECOGNIZED DRUG - REMARK] SCH ×2 (00:42→07:25)
[2021-09-17] MEDS: LACTATED RINGER'S 1,000 ML IV SCH ×3 (01:07→18:03)
[2021-09-17] MEDS ORDERED: ACETAMINOPHEN 1,000 MG/100 ML VIAL IV PRN (01:20)
[2021-09-17 01:21] LABS: Appearance Urine Clear (Clear); Bacteria Urine Automated Negative (Negative); Bilirubin Urine Negative (Negative); Blood Urine Trace (Negative); Color Urine Dark Yellow; Epithelial Cell Urine Auto 0-5 /lpf (0-5); Glucose Urine UA Negative (Negative); Ketones Urine 1+ (Negative); Leukocyte Esterase Urine Trace (Negative); Nitrite Urine Positive (Negative); Protein Urine 1+ (Negative); RBC Urine Automated 0-4 /hpf (0-4); Specific Gravity Urine > 1.045 (1.000-1.030); Urobilinogen Urine Negative (Negative); WBC Urine Automated >30 /hpf (0-5); pH Urine 5.5 (4.5-7.5)
[2021-09-17 01:40] LABS: Cast Urine Automated 0 /lpf (0-5)
[2021-09-17 01:41] LABS: Mucus Urine Present (None Prsent)
[2021-09-17 07:55] LABS: Basophils # (auto) 0.02 K/uL (0-0.2); Basophils % (auto) 0.2 %; Eosinophils # (auto) 0.07 K/uL (0-0.5); Eosinophils % (auto) 0.7 %; Hematocrit (blood only) 37.8 % (42-52); Hemoglobin 12.3 g/dL (14.0-18.0); Immature Granulocytes # (auto) 0.02 K/uL (0.00-0.02); Immature Granulocytes % (auto) 0.2 %; Lymphocytes # (auto) 1.02 K/uL (1.2-3.4); Lymphocytes % (auto) 9.7 %; Mean Corpuscular Hemoglobin 28.3 pg (25-34); Mean Corpuscular Hgb Conc 32.5 g/dL (32-36); Mean Corpuscular Volume 87.1 fL (80-100); Mean Platelet Volume 10.5 fL (7.4-10.4); Monocytes # (auto) 0.69 K/uL (0.11-0.59); Monocytes % (auto) 6.5 %; Neutrophils # (auto) 8.73 K/uL (1.4-6.5); Neutrophils % (auto) 82.7 %; Platelet Count 335 K/uL (130-400); RDW Coefficient of Variation 16.1 % (11.5-14.5); RDW Standard Deviation 51.4 fL (36.4-46.3); Red Blood Count 4.34 M/uL (4.7-6.1); White Blood Count 10.55 K/uL (4.8-10.8)
[2021-09-17 08:13] LABS: Anion Gap 10 (3-11); BUN Creatinine Ratio 17.9 (10-20); Blood Urea Nitrogen 7 mg/dl (6-23); Calcium 8.9 mg/dl (8.5-10.1); Carbon Dioxide 25 mmol/L (21-32); Chloride 99 mmol/L (98-107); Creatinine Clr Calc Pharmacy 281.9 ml/min; Est GFR (African American) > 150.0 ml/min; Glucose 153 mg/dl (70-99(Fasting)); Potassium 3.2 mmol/L (3.5-5.1); Sodium 134 mmol/L (136-145)
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
[2021-09-17] MEDS ORDERED: predniSONE 20 MG TAB PO SCH (09:00)
[2021-09-17] MEDS: FAMOTIDINE 20 MG in SYRINGE 3 ML IV SCH (09:24)
[2021-09-17] MEDS: POTASSIUM CHLORIDE / WTR 10 MEQ/100 ML PLCT IV SCH ×2 (09:24→10:29)
[2021-09-17] MEDS ORDERED: HYDROCORTISONE SOD 100 MG in SYRINGE 0 ML IV STA (09:56)
--- NOTE | 2021-09-17 09:59 | XRay Report ---
XR KUB/Abdomen 1 view CLINICAL HISTORY: Abdominal pain with nausea and vomiting. Distention. COMPARISON STUDY: 09/16/2021 TECHNIQUE: Single view of the abdomen. FINDINGS: Compared to the previous examination, there is again gaseous distention of the colon. This is most li jose related to fecal impaction. No significant small bowel distention is seen. NG tube is present wi thin the stomach. There is no evidence for organomegaly or gross intra-abdominal mass. No abnormal ca lcifications are seen along the course of the urinary tracts bilaterally. No acute osseous pathology. IMPRESSION: 1. Persistent gaseous distention of the colon with evidence for fecal impaction. ACT 112: Negative or not required by law. Electronically signed by: Anam Goddard M.D. 09/17/2021 9:57 AM
--- NOTE | 2021-09-17 12:35 | Hospitalist Progress Note ---
Date of Service September 17, 2021 Assessment & Plan (1) Colon distention: Plan: Acute on chronic- occurred after eating last night - Lactate down trending and no pneumatosis noted on admit - Maintain NPO status - Continue LR, reduce rate to 100 ml/hr - Possibly acutely worsening secondary to food bourne illness with gas production - Continue NGT w/ LIS - GI consulted for evaluation of decompression evaluation, appreciate assistance - Lactate normalized this morning (2) Fecal impaction in rectum: Plan: - Ordered manual digital disimpaction by GI - May require additional interventions to mobilize stool - Await further input from GI (3) Leukocytosis: Plan: Likely reactive secondary to recurrent vomiting - blood cultures pending - UA/Culture- pending - afebrile - negative procalcitonin - Follow fever curve and NLR - normalized on labs this AM 09/17 (4) Neurogenic bladder: Plan: Secondary from cervical spine injury in 1993 - continue with suprapubic sims - course completed as per HPI - as above (5) Abdominal distention: Plan: Acute on chronic - multifactorial - Glucose control (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 - hold while NPO - Stress dose steroids ordered - Will convert back to oral Prednisone taper when diet advanced (7) Pressure ulcer of thigh, stage 2: Plan: Thigh, sacrum back - turn and reposition q 2 hours (8) HTN (hypertension): Plan: Hold home antihypertensives - BP fluctuating as same as previous admission - follow - Hydralazine PRN if needed - SBP >180 (9) HLD (hyperlipidemia): Plan: Hold statin (10) Diabetes: Plan: BG q6 hours while NPO - Will add coverage if 2 consecutive checks > 180 (11) Quadriplegia: Plan: As above - supportive care (12) Morbid obesity with BMI of 40.0-44.9, adult: Plan: BMI 42 Plan: IV K riders ordered to supplement K+ of 3.2 Remaining interventions as outlined above Follow up w/ AM labs and follow urine cultures Await additional recommendations from GI Plan d/w Dr. Kaur Admission and Anticipated Discharge Date Admission Date: September 16, 2021 Subjective Patient seen on daily rounds this morning. He is currently resting in bed and endorses c/o abdominal pressure. Denies n/v. NGT placed for gastric decompression yesterday but has had no improvement with this. Seen by GI this AM, pt mentioned that a rectal tube was discussed as a possibility. He denies fever, chills, chest pain, dyspnea. Review of Systems Review of Systems: REVIEW OF SYSTEMS: Constitutional: No fever, chills Eyes: No diplopia, no worsening or blurred vision ENT: normal hearing, no trouble swallowing Respiratory: No cough, sputum, dyspnea at rest or on exertion Cardiovascular: No chest pain, tightness or palpitations Abdomen: (+) pressure Musculoskeletal: No joint pain, calf pain, swelling Neurologic:(+) quadriplegia, spasticity, Psychiatric: No anxiety or depression Skin: (+) sacrum and back lesions Physical Exam Physical Exam: GENERAL: 51 yo obese WM. Pleasant, cooperative, NAD. LUNGS: Clear to auscultation bilaterally. No accessory muscle use. No W/R/R. CARDIOVASCULAR: Regular rate and rhythm. No M/G/R. No JVD. ABDOMEN: Taunt and distended, not rigid. Hyperresonant to percussion. BS present x 4 quad. : sims EXTREMITIES: No edema. Non-tender. Peripheral pulses +2/4. NEUROLOGIC: A&O x3. Incomplete quadriplegic. PSYCHIATRIC: Cooperative. Appropriate mood and affect. SKIN: Warm, dry, intact. No rashes or lesions. subjectively reports some superficial sacral breakdown Results & Data Results & Data ([facility]) Vital Signs (Past 12 Hours) Vital Signs Temp Pulse Resp BP Pulse Ox 09/17/21 10:27 36.9 C 90 16 143/84 H 93 09/17/21 07:45 36.9 C 89 16 102/66 92 Laboratory Results 09/17/21 07:13 09/17/21 07:13 Diagnostic Findings KUB X-Ray 09/17/21 05:00 XR KUB/Abdomen 1 view CLINICAL HISTORY: Abdominal pain with nausea and vomiting. Distention. COMPARISON STUDY: 09/16/2021 TECHNIQUE: Single view of the abdomen. FINDINGS: Compared to the previous examination, there is again gaseous distention of the colon. This is most likely related to fecal impaction. No significant small bow el distention is seen. NG tube is present within the stomach. There is no evidence for organomegaly or gross intra-abdominal mass. No abnormal calcifications are seen along the course of the urinary tracts bilaterally. No acute osseous pathology. IMPRESSION: 1. Persistent gaseous distention of the colon with evidence for fecal impaction. ACT 112: Negative or not required by law. Electronically signed by: Anam Goddard M.D. 09/17/2021 9:57 AM PG Care Time/CCT Total # of Minutes Spent Total Time Spent with Patient: Total time spent is greater than 50% in coordination of care (as documented) at patient's floor/unit and/or counseling patient: Coding Level of Care Code 43231 Subseq Hosp Care Lvl 3 Diagnoses Colon distention K63.89 Leukocytosis D72.829 Neurogenic bladder N31.9 Abdominal distention R14.0 Pemphigus foliaceus L10.2 Pressure ulcer of thigh, stage 2 L89.212 Laterality: right HTN (hypertension) I10 HLD (hyperlipidemia) E78.5 Diabetes E11.9 Quadriplegia G82.50 Morbid obesity with BMI of 40.0-44.9, adult E66.01; Z68.41 Fecal impaction in rectum K56.41 (1) Pressure ulcer of thigh, stage 2 Laterality: right Qualified Code(s): L89.212 - Pressure ulcer of right hip, stage 2
[2021-09-17] MEDS ORDERED: MEROPENEM CONSULT ACTIVE PRN (15:32)
[2021-09-17] MEDS ORDERED: MINERAL OIL 30 ML UDC ONE (16:51)
[2021-09-17] MEDS: MEROPENEM 500 MG in SYRINGE 0 ML IV SCH ×2 (16:58→23:57)
[2021-09-17] MEDS: HYDROCORTISONE SOD 50 MG in SYRINGE 0 ML IV SCH ×2 (16:59→21:23)
[2021-09-17] MEDS ORDERED: SOD PHOSPHATE/SOD BIPHOSPHATE ENEMA 132 ML BTL PR SCH (17:00)
[2021-09-17] MEDS ORDERED: SOD PHOSPHATE/SOD BIPHOSPHATE ENEMA 132 ML BTL PR ONE (18:15)
[2021-09-17] MEDS: ENOXAPARIN INJ 40 MG/0.4 ML SYR SQ SCH (21:23)
[2021-09-17] MEDS ORDERED: hydrALAZINE HCL 20 MG/ML VIAL IV STA (23:22)
[2021-09-18] MEDS ORDERED: LORazepam 2 MG/1 ML VIAL IV STA ×2 (00:54→20:44)
[2021-09-18] MEDS: LACTATED RINGER'S 1,000 ML IV SCH ×2 (04:12→14:43)
[2021-09-18 07:06] LABS: Basophils # (auto) 0.02 K/uL (0-0.2); Basophils % (auto) 0.2 %; Eosinophils # (auto) 0.04 K/uL (0-0.5); Eosinophils % (auto) 0.4 %; Hematocrit (blood only) 36.8 % (42-52); Immature Granulocytes # (auto) 0.02 K/uL (0.00-0.02); Immature Granulocytes % (auto) 0.2 %; Lymphocytes # (auto) 1.44 K/uL (1.2-3.4); Lymphocytes % (auto) 15.8 %; Mean Corpuscular Hemoglobin 28.1 pg (25-34); Mean Corpuscular Hgb Conc 32.6 g/dL (32-36); Mean Corpuscular Volume 86.2 fL (80-100); Mean Platelet Volume 9.6 fL (7.4-10.4); Monocytes # (auto) 1.25 K/uL (0.11-0.59); Monocytes % (auto) 13.7 %; Neutrophils # (auto) 6.34 K/uL (1.4-6.5); Neutrophils % (auto) 69.7 %; Platelet Count 292 K/uL (130-400); RDW Coefficient of Variation 16.3 % (11.5-14.5); RDW Standard Deviation 51.7 fL (36.4-46.3); Red Blood Count 4.27 M/uL (4.7-6.1); White Blood Count 9.11 K/uL (4.8-10.8)
[2021-09-18 07:24] LABS: Anion Gap 10 (3-11); BUN Creatinine Ratio 17.1 (10-20); Blood Urea Nitrogen 6 mg/dl (6-23); Calcium 9.2 mg/dl (8.5-10.1); Carbon Dioxide 30 mmol/L (21-32); Chloride 97 mmol/L (98-107); Creatinine Clr Calc Pharmacy 314.1 ml/min; Est GFR (African American) > 150.0 ml/min; Est GFR (Non-African American) 145.3 ml/min; Glucose 130 mg/dl (70-99(Fasting)); Magnesium 1.7 mg/dl (1.7-2.4); Potassium 3.4 mmol/L (3.5-5.1); Sodium 137 mmol/L (136-145)
[2021-09-18] MEDS: MEROPENEM 500 MG in SYRINGE 0 ML IV SCH (07:46)
[2021-09-18] MEDS: FAMOTIDINE 20 MG in SYRINGE 3 ML IV SCH (07:47)
[2021-09-18] MEDS ORDERED: LORazepam 2 MG/1 ML VIAL IV PRN (08:21)
[2021-09-18] MEDS ORDERED: hydrALAZINE HCL 20 MG/ML VIAL IV PRN (08:21)
[2021-09-18] MEDS ORDERED: HYDROCORTISONE SOD 50 MG in SYRINGE 0 ML IV SCH (09:00)
[2021-09-18] MEDS ORDERED: BACLOFEN 10 MG TAB PO SCH (09:00)
--- NOTE | 2021-09-18 09:06 | XRay Report ---
XR KUB/Abdomen 1 view CLINICAL HISTORY: colon distension, measure cecal diameter compare. COMPARISON STUDY: 09/17/2021 TECHNIQUE: Single view of the abdomen. FINDINGS: Compared to the previous examination, there is decreased gaseous distention of the colon with evidenc e for a normal caliber colon. No significant small bowel gas is seen. NG tube is again noted within t he stomach. There is no evidence for organomegaly or gross intra-abdominal mass. No abnormal calcific ations are seen along the course of the urinary tracts bilaterally. No acute osseous pathology. IMPRESSION: 1. Interval decreased gaseous distention of the colon with evidence for a normal caliber colon. ACT 112: Negative or not required by law. Electronically signed by: Anam Goddard M.D. 09/18/2021 9:05 AM
[2021-09-18] MEDS: DAPTOmycin 525 MG in SYRINGE 0 ML IV SCH (10:57)
[2021-09-18] MEDS: POTASSIUM CHLORIDE / WTR 10 MEQ/100 ML PLCT IV SCH ×2 (10:57→12:01)
--- NOTE | 2021-09-18 12:24 | Hospitalist Progress Note ---
Date of Service September 18, 2021 Assessment & Plan (1) Colon distention: Plan: Acute on chronic- occurred after eating last night - Lactate elevated but normalized and no pneumatosis noted on admit - Maintain NPO status - Continue LR, reduce rate to 100 ml/hr - Continue NGT w/ LIS - GI consulted for evaluation of decompression evaluation, appreciate assistance--for colo this afternoon w/ Dr. Saravia (2) Fecal impaction in rectum: Plan: - Seems to be improving as he is now stooling - For evacuation of stool via colo this afternoon as above (3) Catheter-associated urinary tract infection: Plan: - Recurrent and polymicrobial--pseudomonas and MRSA - Empirically started on Merrem yesterday - Transition based on culture data to Cefepime and Dapto (4) Leukocytosis: Plan: Suspect leukemoid reaction to recurrent vomiting +/- UTI - blood cultures pending (no growth thus far) - UA/Culture- as above - afebrile - negative procalcitonin (5) Neurogenic bladder: Plan: Secondary from cervical spine injury in 1993 - continue with suprapubic sims - course completed as per HPI - as above (6) Abdominal distention: Plan: Acute on chronic - multifactorial - Glucose control (7) 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 - hold while NPO - Stress dose steroids ordered - Will convert back to oral Prednisone taper when diet advanced (8) Pressure ulcer of thigh, stage 2: Plan: Thigh, sacrum back - turn and reposition q 2 hours - low air mattress ordered - Wound care consult, appreciate assistance (9) HTN (hypertension): Plan: Hold home antihypertensives - BP fluctuating as same as previous admission - follow - Hydralazine PRN if needed - SBP >180 (10) HLD (hyperlipidemia): Plan: Hold statin (11) Diabetes: Plan: BG q6 hours while NPO - Will add coverage if 2 consecutive checks > 180 (12) Quadriplegia: Plan: As above - supportive care (13) Morbid obesity with BMI of 40.0-44.9, adult: Plan: BMI 42 Plan: Additional 2 more IV K riders ordered to supplement K+ of 3.4 Remaining interventions as outlined above Appreciate GI assistance -- may be able to clamp NGT later today follow colo procedure? Await input from GI on this Follow up w/ AM labs Plan d/w Dr. Silverman Admission and Anticipated Discharge Date Admission Date: September 16, 2021 Subjective Patient seen on daily rounds this morning. He is currently resting in bed and reports that his abdomen feels softener, began passing a lot of stool this morning. Notified by RN that skin surrounding rectum was excoriated and bleeding. Rectal tube placed for skin protection. Also notified his BP was up 170s/100s. He denies n/v. NGT still in place. No n/v, fever, or chills. Notes is sweating but thinks it's due to having some discomfort related to the rectal tube placement. Review of Systems Review of Systems: REVIEW OF SYSTEMS: Constitutional: (+) diaphoresis. No fever, chills Eyes: No diplopia, no worsening or blurred vision ENT: normal hearing, no trouble swallowing Respiratory: No cough, sputum, dyspnea at rest or on exertion Cardiovascular: No chest pain, tightness or palpitations Abdomen: No pain, n/v. Musculoskeletal: No joint pain, calf pain, swelling Neurologic:(+) quadriplegia, spasticity, Psychiatric: No anxiety or depression Skin: (+) sacrum and back lesions Physical Exam Physical Exam: GENERAL: 51 yo obese WM. Pleasant, cooperative, NAD. LUNGS: Clear to auscultation bilaterally. No accessory muscle use. No W/R/R. CARDIOVASCULAR: Regular rate and rhythm. No M/G/R. No JVD. ABDOMEN: Distended but soft, BS present x 4 quad. Fecal management system in p lace, no stool in tube/bag currently. : sims EXTREMITIES: No edema. Non-tender. Peripheral pulses +2/4. NEUROLOGIC: A&O x3. Incomplete quadriplegic. PSYCHIATRIC: Cooperative. Appropriate mood and affect. SKIN: Warm, dry, intact. No rashes or lesions. subjectively reports some superficial sacral breakdown Results & Data Results & Data ([facility]) Vital Signs (Past 12 Hours) Vital Signs Temp Pulse Resp BP Pulse Ox 09/18/21 10:21 112/71 09/18/21 07:50 36.7 C 104 H 16 172/107 H 94 09/18/21 01:10 118 H 165/91 H Laboratory Results 09/18/21 06:49 09/18/21 06:49 Spec: [id number] Collected: 09/16/21-UNK Received: 09/16/21-[address]: Michelle Waldron, Source: Urine,Indwelling Cath OV Order: Ordered: Urine Culture Procedure Result Verified Site Urine Culture Final 09/18/21-924 Organism 1 Pseudomonas aeruginosa [place] Count >100,000 CFU/ml Sens Sensitivities to Follow Organism 2 Staph aureus MRSA [place] Count >100,000 CFU/ml Sens Sensitivities to Follow P aerugino MRSA RX M.I.C. RX M.I.C. --- --------- --- --------- Cefepime S <=2 Ceftazidime S <=1 Ciprofloxacin R >2 Daptomycin S <=0.5 Gentamicin S <=4 Levofloxacin R >4 Meropenem S <=1 Nitrofurantoin S <=32 Oxacillin R >2 Rifampin S <=1 Tetracycline R >8 Tobramycin S <=4 Trimeth/Sulfa S <=0.5/9.5 Pip/Tazo S <=16 Vancomycin S 2 PG Care Time/CCT Total # of Minutes Spent Total Time Spent with Patient: Total time spent is greater than 50% in coordination of care (as documented) at patient's floor/unit and/or counseling patient: Coding Level of Care Code 60606 Subseq Hosp Care Lvl 3 Diagnoses Colon distention K63.89 Fecal impaction in rectum K56.41 Leukocytosis D72.829 Neurogenic bladder N31.9 Abdominal distention R14.0 Pemphigus foliaceus L10.2 Pressure ulcer of thigh, stage 2 L89.212 Laterality: right HTN (hypertension) I10 HLD (hyperlipidemia) E78.5 Diabetes E11.9 Quadriplegia G82.50 Morbid obesity with BMI of 40.0-44.9, adult E66.01; Z68.41 Catheter-associated urinary tract infection T83.511A; N39.0 Encounter type: initial encounter Indwelling urinary catheter type: unspecified (1) Pressure ulcer of thigh, stage 2 Laterality: right Qualified Code(s): L89.212 - Pressure ulcer of right hip, stage 2 (2) Catheter-associated urinary tract infection Encounter type: initial encounter Indwelling urinary catheter type: unspecified Qualified Code(s): T83.511A - Infection and inflammatory reaction due to indwelling urethral catheter, initial encounter; N39.0 - Urinary tract infection, site not specified
[2021-09-18] MEDS: CEFEPIME 2,000 MG in SYRINGE 0 ML IV SCH (14:43)
[2021-09-18] MEDS ORDERED: ACETAMINOPHEN 325 MG TAB PO PRN (16:54)
[2021-09-18] MEDS ORDERED: PHARMACY GLYCEMIC MGMT CONSULT PRN (16:54)
--- NOTE | 2021-09-18 17:04 | Gastroenterology Progress Note ---
Date of Service September 18, 2021 Assessment & Plan (1) Colon distention: (2) Abdominal pain: Plan: Distension and obstipation have resolved with use of enemas. Recommend continue to use enemas and glycerin suppositories as he does at home to prevent impactions and colonic distension episodes. NG tube pulled and diet can be advanced as tolerated. We will sign off the case at this point and intervene again as requested by the primary care team. Admission and Anticipated Discharge Date Admission Date: September 16, 2021 Subjective Follow up to colon ileus with distension. He has had an excellent response to multiple phosphosoda and tap water enemas with frequent passage of flatus and multiple copious bowel movements, with resolution of colonic distension by imaging this morning, and resolution of symptomatic distension and respiratory compromise Review of Systems Review of Systems: All systems reviewed & are unremarkable except as noted in Subjective Physical Exam Gastrointestinal (Abdomen): The abdomen is still protuberant and distended but much softer to palpation, still has tympanitic percussion note, no tenderness noted, no rebound Results & Data ([facility]) Vital Signs (Past 12 Hours) Vital Signs Temp Pulse Resp BP Pulse Ox 09/18/21 15:00 36.4 C L 98 H 18 153/86 H 93 09/18/21 10:21 112/71 09/18/21 07:50 36.7 C 104 H 16 172/107 H 94 Laboratory Results Laboratory Results WBC 9.11 K/uL (4.8-10.8) 09/18/21 06:49 RBC 4.27 M/uL (4.7-6.1) L 09/18/21 06:49 Hgb 12.0 g/dL (14.0-18.0) L 09/18/21 06:49 Hct 36.8 % (42-52) L 09/18/21 06:49 MCV 86.2 fL (80-100) 09/18/21 06:49 MCH 28.1 pg (25-34) 09/18/21 06:49 MCHC 32.6 g/dL (32-36) 09/18/21 06:49 RDW Std Deviation 51.7 fL (36.4-46.3) H 09/18/21 06:49 RDW Coeff of Sandor 16.3 % (11.5-14.5) H 09/18/21 06:49 Plt Count 292 K/uL (130-400) 09/18/21 06:49 MPV 9.6 fL (7.4-10.4) 09/18/21 06:49 Immature Gran % (Auto) 0.2 % 09/18/21 06:49 Neut % (Auto) 69.7 % 09/18/21 06:49 Lymph % (Auto) 15.8 % 09/18/21 06:49 [place] % (Auto) 13.7 % 09/18/21 06:49 Eos % (Auto) 0.4 % 09/18/21 06:49 Baso % (Auto) 0.2 % 09/18/21 06:49 Neut # (Auto) 6.34 K/uL (1.4-6.5) 09/18/21 06:49 Lymph # (Auto) 1.44 K/uL (1.2-3.4) 09/18/21 06:49 [place] # (Auto) 1.25 K/uL (0.11-0.59) H 09/18/21 06:49 Eos # (Auto) 0.04 K/uL (0-0.5) 09/18/21 06:49 Baso # (Auto) 0.02 K/uL (0-0.2) 09/18/21 06:49 Immature Gran # (Auto) 0.02 K/uL (0.00-0.02) 09/18/21 06:49 Sodium 137 mmol/L (136-145) 09/18/21 06:49 Potassium 3.4 mmol/L (3.5-5.1) L 09/18/21 06:49 Chloride 97 mmol/L (98-107) L 09/18/21 06:49 Carbon Dioxide 30 mmol/L (21-32) 09/18/21 06:49 Anion Gap 10 (3-11) 09/18/21 06:49 BUN 6 mg/dl (6-23) 09/18/21 06:49 Creatinine 0.35 mg/dl (0.6-1.4) L 09/18/21 06:49 Est Cr Clr Drug Dosing 314.1 ml/min 09/18/21 06:49 Est GFR ( Amer) > 150.0 ml/min 09/18/21 06:49 Est GFR (Non-Af Amer) 145.3 ml/min 09/18/21 06:49 BUN/Creatinine Ratio 17.1 (10-20) 09/18/21 06:49 Glucose 130 mg/dl (70-99(Fasting)) H 09/18/21 06:49 POC Glucose 111 mg/dl (70-99) H 09/18/21 16:04 Lactate 1.5 mmol/L (0.4-2.0) 09/17/21 10:08 Calcium 9.2 mg/dl (8.5-10.1) 09/18/21 06:49 Magnesium 1.7 mg/dl (1.7-2.4) 09/18/21 06:49 Total Bilirubin 0.8 mg/dl (0.2-1.0) 09/16/21 10:31 AST 14 U/L (13-39) 09/16/21 10:31 ALT 19 U/L (7-52) 09/16/21 10:31 Alkaline Phosphatase 58 U/L (34-104) 09/16/21 10:31 Troponin I < 0.03 ng/ml (0-0.04) 09/16/21 10:31 Total Protein 7.1 gm/dl (6.0-8.3) 09/16/21 10:31 Albumin 4.1 gm/dl (3.4-5.0) 09/16/21 10:31 Globulin 3.0 gm/dl (2.5-4.0) 09/16/21 10:31 Albumin/Globulin Ratio 1.4 (0.9-2) 09/16/21 10:31 Lipase 27 U/L (11-82) 09/16/21 10:31 Procalcitonin < 0.05 ng/ml (0-0.5) 09/16/21 10:32 Urine Color Dark Yellow 09/17/21 01:00 Urine Appearance Clear (Clear) 09/17/21 01:00 Urine pH 5.5 (4.5-7.5) 09/17/21 01:00 Ur Specific [place] > 1.045 (1.000-1.030) H 09/17/21 01:00 Urine Protein 1+ (Negative) H 09/17/21 01:00 Urine Glucose (UA) Negative (Negative) 09/17/21 01:00 Urine Ketones 1+ (Negative) H 09/17/21 01:00 Urine Blood Trace (Negative) H 09/17/21 01:00 Urine Nitrite Positive (Negative) A 09/17/21 01:00 Urine Bilirubin Negative (Negative) 09/17/21 01:00 Urine Urobilinogen Negative (Negative) 09/17/21 01:00 Ur Leukocyte Esterase Trace (Negative) H 09/17/21 01:00 Urine WBC (Auto) >30 /hpf (0-5) H 09/17/21 01:00 Urine RBC (Auto) 0-4 /hpf (0-4) 09/17/21 01:00 U Hyaline Cast (Auto) 0 /lpf (0-5) 09/17/21 01:00 U Epithel Cells (Auto) 0-5 /lpf (0-5) 09/17/21 01:00 Urine Bacteria (Auto) Negative (Negative) 09/17/21 01:00 Urine Mucus Present (None Prsent) A 09/17/21 01:00 Urine Yeast Not Reportable 09/17/21 01:00 SARS-CoV-2, RNA, NAAT NEGATIVE (NEGATIVE) 09/16/21 17:20 Impressions Abdomen/Pelvis CT 09/16/21 09:45 CT SCAN OF THE ABDOMEN AND PELVIS WITH IV CONTRAST CLINICAL HISTORY: Nausea and vomiting. Bloating. COMPARISON STUDY: Abdominal CT dated 08/27/2021. TECHNIQUE: Following the IV administration of 97 cc of Optiray 320, CT scan of the abdomen and pelvis is performed from the lung bases to the proximal femora. Images are reviewed in the axial, sagittal, and coronal planes. IV contrast was administered without complication. A dose lowering technique was utilized adhering to the principles of ALARA. The examination is degraded by large body habitus, and by streak artifact from the body wall abutting the CT gantry. CT DOSE: 2110.05 mGy.cm FINDINGS: Lung bases: The heart is normal in size and without pericardial effusion. The lung bases are clear. Liver: The contrast-enhanced liver is enlarged, measuring 19.6 cm in length. The liver demonstrates diffusely diminished attenuation consistent with hepatic steatosis. Mild fatty sparing is seen adjacent to gallbladder fossa. There is no intrahepatic biliary ductal dilatation. The hepatic veins and portal veins are patent. Gallbladder: Unremarkable. Spleen: Normal in size and attenuation. Pancreas: Unremarkable. 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 The right adrenal gland is normal in appearance. Kidneys: The contrast enhanced kidneys demonstrate mild cortical atrophy and are without hydronephrosis. The kidneys enhance symmetrically. There are at least 7 nonobstructing right renal calculi which measure up to 5 mm. No left renal calculi are clearly identified on this contrast-enhanced examination. There is no ureteral stone. Abdominal vasculature: The abdominal aorta is normal in course and caliber noting moderate atherosclerotic calcification. Bowel: There is no bowel obstruction. The small bowel loops are normal in caliber. There is significant gaseous distention of the right colon which measures up to 8 cm in diameter. Moderate fecal retention is noted throughout the left colon, greatest in the rectosigmoid. There is no significant colonic wall thickening or surrounding inflammation. No pneumatosis intestinalis is seen.. The appendix is well-visualized and normal. Peritoneum: There is no intraperitoneal free air or abdominal ascites. Lymphadenopathy: None. Pelvic viscera: The bladder is partially decompressed around a suprapubic catheter. Tiny nonspecific foci of gas are present within the bladder lumen. The prostate and seminal vesicles are normal as imaged. There is diffuse atrophy of the pelvic musculature. Skeletal structures: The skeletal structures are osteopenic. There are bilateral pars defects at L5 and mild to moderate lumbosacral spondylosis. Chronic deformity of the pelvis is unchanged with heterotopic soft tissue ossification above the greater trochanter of the left femur. No lytic or blastic lesions are seen. IMPRESSION: 1. No acute infectious or inflammatory findings are identified in the abdomen or pelvis. 2. The small bowel loops are normal in caliber with no evidence of small bowel obstruction. 3. There is significant gaseous distention of the right colon with moderate fecal retention throughout the left colon. This is greatest in the rectosigmoid. These findings likely represent colonic ileus. Mild functional obstruction related to fecal load could also have this appearance. Clinical correlation will be essential. 4. Hepatomegaly and hepatic steatosis. 5. Right-sided nephrolithiasis. 6. Additional findings as above. ACT 112: Negative or not required by law. Electronically signed by: Bartolome Mckay M.D. 09/16/2021 12:14 PM KUB X-Ray 09/18/21 07:00 XR KUB/Abdomen 1 view CLINICAL HISTORY: colon distension, measure cecal diameter compare. COMPARISON STUDY: 09/17/2021 TECHNIQUE: Single view of the abdomen. FINDINGS: Compared to the previous examination, there is decreased gaseous distention of the colon with evidence for a normal caliber colon. No significant small bowel gas is seen. NG tube is again noted within the stomach. There is no evidence for organomegaly or gross intra-abdominal mass. No abnormal calcifications are seen along the course of the urinary tracts bilaterally. No acute osseous pathology. IMPRESSION: 1. Interval decreased gaseous distention of the colon with evidence for a normal caliber colon. ACT 112: Negative or not required by law. Electronically signed by: Anam Goddard M.D. 09/18/2021 9:05 AM
[2021-09-18] MEDS ORDERED: GLUCOSE 10 TABS/TUBE PO PRN (17:30)
[2021-09-18] MEDS ORDERED: DEXTROSE 50% 50 ML SYRINGE IV PRN (17:30)
[2021-09-18] MEDS ORDERED: GLUCAGON FOR INJ 1 MG VIAL IM PRN (17:30)
[2021-09-18] MEDS ORDERED: CARBOHYDRATES FOR HYPOGLYCEMIA PO PRN (17:30)
[2021-09-18] MEDS ORDERED: GLUCOSE 40% GEL 15 GM TUBE PO PRN (17:30)
[2021-09-18] MEDS: INSULIN ASPART PER UNIT SC SCH ×2 (17:40→20:43)
[2021-09-18] MEDS: BACLOFEN 10 MG TAB PO SCH (20:20)
[2021-09-18] MEDS: ENOXAPARIN INJ 40 MG/0.4 ML SYR SQ SCH (20:21)
[2021-09-18] MEDS: FAMOTIDINE 40 MG TABLET PO SCH (20:22)
[2021-09-18] MEDS: hydrALAZINE HCL 25 MG TAB PO SCH (20:22)
[2021-09-18] MEDS: lisinopril 40 MG TAB PO SCH (20:23)
[2021-09-18] MEDS: HYDROCORTISONE SOD 50 MG in SYRINGE 0 ML IV SCH (20:23)
[2021-09-18] MEDS ORDERED: BACLOFEN 50 MCG/ML ITR SCH (21:00)
--- NOTE | 2021-09-18 21:05 | Pharmacy Report ---
Pharmacy Glycemic Short Note 2 - Date of Service September 18, 2021 - Glycemic Short BSG Results (Last 24 hours): 09/18/21 09/18/21 09/18/21 00:01 06:04 06:49 Glucose 130 H POC Glucose 165 H 148 H 09/18/21 09/18/21 09/18/21 12:13 16:04 20:36 Glucose POC Glucose 158 H 111 H 93 OUTPATIENT ANTIDIABETIC REGIMEN: * Glipizide ER 10 mg PO AM * Metformin 1000 mg PO BIDM * HbA1c = 7.5% (08/29/21) ASSESSMENT: * 51 yo M admitted on 09/16/21 secondary to abdominal pain. Patient has not been receiving any antidiabetic medications since admission. 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 * Has been on stress dose steroids since 09/17/21 (Solucortef 100 mg IV Q8H). Changed to Solucortef 50 mg IV Q12h on 09/18/21. Prednisone 50 mg AM will be starting on the morning of 09/19/21. * Diet has been advanced today as NG tube was pulled. Given diet is ordered and Prednisone is being started, will order sliding scale insulin for this evening. * Patient may require NPH dosing with Prednisone starting tomorrow morning. Will leave this decision to floor pharmacist in the morning. PLAN FOR INPATIENT GLYCEMIC CONTROL: * Hold outpatient oral diabetes medications * Basal insulin * None * Bolus insulin * NovoLog per scale ACHS or Q6hrs while NPO * Goal Range: Low 110 mg/dL - High 140 mg/dL * Correction Factor: 25 mg/dL/unit * Nutritional / Prandial insulin per carb ratio of 1 unit per 8 grams CHO consumed
[2021-09-19] MEDS: CEFEPIME 2,000 MG in SYRINGE 0 ML IV SCH ×2 (00:41→14:37)
[2021-09-19 07:51] LABS: Basophils # (auto) 0.02 K/uL (0-0.2); Basophils % (auto) 0.3 %; Eosinophils # (auto) 0.24 K/uL (0-0.5); Eosinophils % (auto) 3.2 %; Hematocrit (blood only) 35.1 % (42-52); Hemoglobin 11.7 g/dL (14.0-18.0); Immature Granulocytes # (auto) 0.02 K/uL (0.00-0.02); Immature Granulocytes % (auto) 0.3 %; Lymphocytes # (auto) 1.42 K/uL (1.2-3.4); Mean Corpuscular Hemoglobin 28.9 pg (25-34); Mean Corpuscular Hgb Conc 33.3 g/dL (32-36); Mean Corpuscular Volume 86.7 fL (80-100); Mean Platelet Volume 9.7 fL (7.4-10.4); Monocytes % (auto) 10.7 %; Neutrophils # (auto) 4.98 K/uL (1.4-6.5); Neutrophils % (auto) 66.5 %; Platelet Count 280 K/uL (130-400); RDW Coefficient of Variation 16.4 % (11.5-14.5); RDW Standard Deviation 52.2 fL (36.4-46.3); Red Blood Count 4.05 M/uL (4.7-6.1); White Blood Count 7.48 K/uL (4.8-10.8)
[2021-09-19 08:10] LABS: Anion Gap 10 (3-11); BUN Creatinine Ratio 23.1 (10-20); Blood Urea Nitrogen 9 mg/dl (6-23); Calcium 8.7 mg/dl (8.5-10.1); Carbon Dioxide 26 mmol/L (21-32); Chloride 96 mmol/L (98-107); Creatinine Clr Calc Pharmacy 281.9 ml/min; Est GFR (African American) > 150.0 ml/min; Glucose 137 mg/dl (70-99(Fasting)); Magnesium 1.6 mg/dl (1.7-2.4); Potassium 3.3 mmol/L (3.5-5.1); Sodium 132 mmol/L (136-145)
[2021-09-19] MEDS ORDERED: NovoLIN-N (NPH) PER UNIT CHARGE SQ ONE (08:30)
[2021-09-19] MEDS ORDERED: predniSONE 50 MG TAB PO SCH (09:00)
[2021-09-19] MEDS: INSULIN ASPART PER UNIT SC SCH ×4 (09:32→20:48)
[2021-09-19] MEDS: hydrALAZINE HCL 25 MG TAB PO SCH ×2 (09:33→20:53)
[2021-09-19] MEDS: BACLOFEN 10 MG TAB PO SCH ×3 (09:33→20:53)
[2021-09-19] MEDS: amLODIPine BESYLATE 5 MG TAB PO SCH (09:33)
[2021-09-19] MEDS: HYDROCORTISONE SOD 50 MG in SYRINGE 0 ML IV SCH (09:45)
[2021-09-19] MEDS: DAPTOmycin 525 MG in SYRINGE 0 ML IV SCH (09:45)
--- NOTE | 2021-09-19 10:20 | Pharmacy Report ---
Pharmacy Glycemic Short Note 2 - Date of Service September 19, 2021 - Glycemic Short BSG Results (Last 24 hours): 09/18/21 09/18/21 09/18/21 12:13 16:04 20:36 Glucose POC Glucose 158 H 111 H 93 09/19/21 09/19/21 07:30 08:11 Glucose 137 H POC Glucose 120 H OUTPATIENT ANTIDIABETIC REGIMEN: * Glipizide ER 10 mg PO AM * Metformin 1000 mg PO BIDM * HbA1c = 7.5% (08/29/21) ASSESSMENT: 09/19/21: * Fating BSG of 120 mg/dL this morning is near goal. No indication to add long acting basal insulin at this time. * Anticipate post prandial hyperglycemia with the addition of prednisone 50 mg daily. Will start a conservative dose of once daily NPH and titrate as needed. May need to tighten carb coverage also. Background: * 51 yo M admitted on 09/16/21 secondary to abdominal pain. Patient has not been receiving any antidiabetic medications since admission. 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 * Has been on stress dose steroids since 09/17/21 (Solucortef 100 mg IV Q8H). Changed to Solucortef 50 mg IV Q12h on 09/18/21. Prednisone 50 mg AM will be starting on the morning of 09/19/21. * Diet has been advanced today as NG tube was pulled. Given diet is ordered and Prednisone is being started, will order sliding scale insulin for this evening. * Patient may require NPH dosing with Prednisone starting tomorrow morning. Will leave this decision to floor pharmacist in the morning. PLAN FOR INPATIENT GLYCEMIC CONTROL: * Hold outpatient oral diabetes medications * Basal insulin * NPH 25 units SQ x 1 - to be administered with prednisone * Bolus insulin * NovoLog per scale ACHS or Q6hrs while NPO * Goal Range: Low 110 mg/dL - High 140 mg/dL * Correction Factor: 25 mg/dL/unit * Nutritional / Prandial insulin per carb ratio of 1 unit per 8 grams CHO consumed
[2021-09-19] MEDS ORDERED: POLYETHYLENE (MIRALAX) 17 GM PACK PO PRN (13:21)
[2021-09-19] MEDS ORDERED: MAGNESIUM OXIDE 400 MG TAB PO STA (13:21)
[2021-09-19] MEDS ORDERED: POTASSIUM CHLORIDE CRTAB 20 MEQ TABCR PO STA (13:21)
[2021-09-19] MEDS ORDERED: DOCUSATE SODIUM SYRUP 100 MG/10 ML UDC PO STA (13:21)
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
[2021-09-19] MEDS: GLYCERIN ADULT 12 SUPP/BOX SUPP PR SCH (15:45)
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
[2021-09-19] MEDS: ENOXAPARIN INJ 40 MG/0.4 ML SYR SQ SCH (20:52)
[2021-09-19] MEDS: FAMOTIDINE 40 MG TABLET PO SCH (20:53)
[2021-09-19] MEDS: lisinopril 40 MG TAB PO SCH (20:53)
[2021-09-19] MEDS: MAGNESIUM OXIDE 400 MG TAB PO SCH (22:40)
[2021-09-20] MEDS: CEFEPIME 2,000 MG in SYRINGE 0 ML IV SCH ×2 (01:15→13:25)
[2021-09-20 06:43] LABS: Basophils # (auto) 0.02 K/uL (0-0.2); Basophils % (auto) 0.2 %; Eosinophils # (auto) 0.11 K/uL (0-0.5); Eosinophils % (auto) 1.2 %; Hematocrit (blood only) 39.3 % (42-52); Hemoglobin 12.8 g/dL (14.0-18.0); Immature Granulocytes # (auto) 0.04 K/uL (0.00-0.02); Immature Granulocytes % (auto) 0.4 %; Lymphocytes # (auto) 1.95 K/uL (1.2-3.4); Lymphocytes % (auto) 21.3 %; Mean Corpuscular Hemoglobin 28.3 pg (25-34); Mean Corpuscular Hgb Conc 32.6 g/dL (32-36); Mean Corpuscular Volume 86.9 fL (80-100); Mean Platelet Volume 10.5 fL (7.4-10.4); Monocytes # (auto) 1.05 K/uL (0.11-0.59); Monocytes % (auto) 11.5 %; Neutrophils # (auto) 5.98 K/uL (1.4-6.5); Neutrophils % (auto) 65.4 %; Platelet Count 353 K/uL (130-400); RDW Coefficient of Variation 16.1 % (11.5-14.5); RDW Standard Deviation 51.5 fL (36.4-46.3); Red Blood Count 4.52 M/uL (4.7-6.1); White Blood Count 9.15 K/uL (4.8-10.8)
[2021-09-20 07:08] LABS: Alanine Aminotransferase 17 U/L (7-52); Albumin Globulin Ratio 1.5 (0.9-2); Alkaline Phosphatase 48 U/L (34-104); Anion Gap 11 (3-11); Aspartate Aminotransferase 12 U/L (13-39); Bilirubin,Total 0.6 mg/dl (0.2-1.0); Blood Urea Nitrogen 8 mg/dl (6-23); Calcium 9.2 mg/dl (8.5-10.1); Carbon Dioxide 25 mmol/L (21-32); Chloride 100 mmol/L (98-107); Creatinine Clr Calc Pharmacy 261.8 ml/min; Est GFR (African American) > 150.0 ml/min; Est GFR (Non-African American) 134.8 ml/min; Globulin 2.7 gm/dl (2.5-4.0); Glucose 182 mg/dl (70-99(Fasting)); Magnesium 1.8 mg/dl (1.7-2.4); Potassium 3.6 mmol/L (3.5-5.1); Sodium 136 mmol/L (136-145); Total Protein 6.7 gm/dl (6.0-8.3)
[2021-09-20] MEDS: hydrALAZINE HCL 25 MG TAB PO SCH ×2 (08:16→22:19)
[2021-09-20] MEDS: BACLOFEN 10 MG TAB PO SCH ×3 (08:16→22:20)
[2021-09-20] MEDS: MAGNESIUM OXIDE 400 MG TAB PO SCH ×2 (08:16→22:20)
[2021-09-20] MEDS ORDERED: NovoLIN-N (NPH) PER UNIT CHARGE SQ ONE (09:00)
[2021-09-20] MEDS ORDERED: predniSONE 20 MG TAB PO SCH (09:00)
[2021-09-20] MEDS: amLODIPine BESYLATE 5 MG TAB PO SCH (09:28)
[2021-09-20] MEDS: DAPTOmycin 525 MG in SYRINGE 0 ML IV SCH (09:28)
[2021-09-20] MEDS: INSULIN ASPART PER UNIT SC SCH ×4 (09:33→22:26)
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
[2021-09-20] MEDS: ONDANSETRON INJ 2 MG/ML 2 ML VIAL IV PRN (21:55)
[2021-09-20] MEDS: ENOXAPARIN INJ 40 MG/0.4 ML SYR SQ SCH (22:18)
[2021-09-20] MEDS: FAMOTIDINE 40 MG TABLET PO SCH (22:20)
[2021-09-20] MEDS: lisinopril 40 MG TAB PO SCH (22:20)
[2021-09-21] MEDS ORDERED: CALCIUM CARBONATE 500 MG CHEWABLE TAB PO PRN (00:43)
[2021-09-21] MEDS: CEFEPIME 2,000 MG in SYRINGE 0 ML IV SCH ×2 (01:04→13:06)
[2021-09-21] MEDS: INSULIN ASPART PER UNIT SC SCH ×4 (08:51→21:14)
[2021-09-21] MEDS: GLYCERIN ADULT 12 SUPP/BOX SUPP PR SCH (08:54)
[2021-09-21] MEDS ORDERED: POLYETHYLENE (MIRALAX) 17 GM PACK PO SCH (09:00)
[2021-09-21] MEDS ORDERED: NovoLIN-N (NPH) PER UNIT CHARGE SQ ONE (09:00)
[2021-09-21] MEDS: amLODIPine BESYLATE 5 MG TAB PO SCH (09:12)
[2021-09-21] MEDS: MAGNESIUM OXIDE 400 MG TAB PO SCH ×2 (09:13→21:22)
[2021-09-21] MEDS: hydrALAZINE HCL 25 MG TAB PO SCH ×3 (09:13→21:27)
[2021-09-21] MEDS: DAPTOmycin 525 MG in SYRINGE 0 ML IV SCH (09:13)
[2021-09-21] MEDS: predniSONE 10 MG TABLET PO SCH (09:14)
[2021-09-21] MEDS: BACLOFEN 10 MG TAB PO SCH ×3 (09:14→21:21)
[2021-09-21] MEDS ORDERED: SOD PHOSPHATE/SOD BIPHOSPHATE ENEMA 132 ML BTL PR PRN (09:55)
--- NOTE | 2021-09-21 13:38 | Pharmacy Report ---
Pharmacy Glycemic Short Note 2 - Date of Service September 21, 2021 - Glycemic Short BSG Results (Last 24 hours): 09/20/21 09/20/21 09/20/21 17:16 17:16 20:30 POC Glucose 248 H 248 H 206 H 09/21/21 09/21/21 08:05 11:57 POC Glucose 138 H 203 H OUTPATIENT ANTIDIABETIC REGIMEN: * Glipizide ER 10 mg PO AM * Metformin 1000 mg PO BIDM * HbA1c = 7.5% (08/29/21) ASSESSMENT: 09/21/21: * Blood sugars rising throughout the day the past 2 days, tighten CR and CF at this time. * Fasting blood sugars at goal, no change in basal at this time. * Prednisone decreased to 30mg PO daily starting today. 09/19/21: * Fating BSG of 120 mg/dL this morning is near goal. No indication to add long acting basal insulin at this time. * Anticipate post prandial hyperglycemia with the addition of prednisone 50 mg daily. Will start a conservative dose of once daily NPH and titrate as needed. May need to tighten carb coverage also. Background: * 51 yo M admitted on 09/16/21 secondary to abdominal pain. Patient has not been receiving any antidiabetic medications since admission. 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 * Has been on stress dose steroids since 09/17/21 (Solucortef 100 mg IV Q8H). Changed to Solucortef 50 mg IV Q12h on 09/18/21. Prednisone 50 mg AM will be starting on the morning of 09/19/21. * Diet has been advanced today as NG tube was pulled. Given diet is ordered and Prednisone is being started, will order sliding scale insulin for this evening. * Patient may require NPH dosing with Prednisone starting tomorrow morning. Will leave this decision to floor pharmacist in the morning. PLAN FOR INPATIENT GLYCEMIC CONTROL: * Hold outpatient oral diabetes medications * Basal insulin * NPH 25 units SQ daily with prednisone * Bolus insulin * NovoLog per scale ACHS or Q6hrs while NPO * Goal Range: Low 110 mg/dL - High 140 mg/dL * Correction Factor: 15 mg/dL/unit * Nutritional / Prandial insulin per carb ratio of 1 unit per 5 grams CHO consumed
--- NOTE | 2021-09-21 14:17 | Hospitalist Progress Note ---
Date of Service September 21, 2021 Assessment & Plan (1) Colon distention: Plan: Acute on chronic- - Lactate elevated but normalized and no pneumatosis noted on admit - CT of the abdomen and pelvis showed gaseous distention with moderate fecal retention in the left colon consistent with colonic ileus or functional obstruction from fecal load - NGT at LIS upfront. Has since been treated for fecal impaction - Follow-up KUB shows improved gaseous distention - GI following (and since signed off)appreciate recommendations/assistance - NGT subsequently removed. Tolerating oral intake (2) Fecal impaction in rectum: Plan: - S/p digital disimpaction and fleets enema - Chronic fecal impaction - Is not on a chronic bowel regimen other than glycerin suppositories every other day - Have since added Colace and MiraLAX daily, with prn fleets enemas (3) Catheter-associated urinary tract infection: Plan: - Patient with polymicrobial, multidrug-resistant UTIcatheter associated (multidrug-resistant Pseudomonas and MRSA) - Empiric Merrem transitioned to cefepime/daptomycin based on culture data and multiple drug allergies Will need 14 days of treatment to complete on 10/01 - Patient with recurrent urinary tract infections likely given his chronic suprapubic catheter and his immunocompromise state with an XT and prednisone - Urology consulted and have since exchanged his suprapubic catheter (09/19) (4) Leukocytosis: Plan: - Presented with white blood cell count of 12.6 - Could have been reactive from vomiting but also found to have multidrug- resistant UTI - Has since normalized (5) Neurogenic bladder: Plan: Secondary from cervical spine injury in 1993 - continue with suprapubic sims. Exchanged 09/19 by urology (gets exchanged weekly) - Continue bladder irrigation twice daily. - Given history of recurrent UTI, could consider gentamicin bladder irrigation weekly. Will discuss with urology - Follow-up with urology as an outpatient (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 - Ordered stress dose steroids which have since been converted to oral. Continue taper - MXT- hold x 2 weeks given active infection (7) Pressure ulcer of thigh, stage 2: Plan: Thigh, sacrum back - turn and reposition q 2 hours - low air mattress ordered - Wound care consulted, appreciate assistance - no active infection (8) HTN (hypertension): Plan: - Continue lisinopril, Norvasc, and hydralazine all as prior to hospitalization - BP has been accelerated --> increase hydralazine to TID - continue to monitor (9) HLD (hyperlipidemia): Plan: -statin currently on hold (10) Diabetes: Plan: - Continue analog with sliding scale/correction dosing - pharmacy managing (11) Quadriplegia: Plan: As above - supportive care (12) Morbid obesity with BMI of 40.0-44.9, adult: Plan: BMI 42noted Plan: Plan d/w Dr. Silverman Admission and Anticipated Discharge Date Admission Date: September 16, 2021 Subjective Patient seen on daily rounds today. When initially seen this morning, had his glycerin suppository without effect. Fleet enema ordered and patient subsequently had a large BM. Denies abdominal pain, nausea or vomiting. Case management has referrals out to multiple facilities regarding need for IV antibiotics. Review of Systems Review of Systems: All systems reviewed and are unremarkable except as noted in HPI and below Denies fevers, chills, headache, nasal congestion, sore throat, cough, chest pain, shortness of breath, palpitations, orthopnea, PND, abdominal pain, nausea, vomiting, diarrhea, constipation, dysuria, hematuria, frequency, back pain, joint pain or swelling, easy bruising or bleeding, skin lesions or rashes. Physical Exam Physical Exam: General: Resting comfortably in his hospital bed. He does not appear ill or toxic. NAD. HEENT: Head is AT/NC. Buccal mucosa is moist and pink Neck: No JVD. Negative hepatojugular reflex Cardiac: Distant heart soundlikely due to habitus. Lungs: CTA without W/R/R Abdomen:Obese and difficult to examine. Appears to have normal active bowel sounds X4. Abdomen is soft Extremities: No peripheral clubbing cyanosis or edema. mildly contractures of the hands bilaterally Neuro: A&O X4. Cranial nerves II through XII are grossly intact. No focal neuro deficits Skin: No obvious skin lesions or rashes. significant striae of the bilateral chest wall Psych: Appropriate affect. Pleasant and cooperative Results & Data Results & Data ([facility]) Vital Signs (Past 12 Hours) Vital Signs Temp Pulse Resp BP Pulse Ox 09/21/21 07:46 36.4 C L 83 18 163/111 H 96 Laboratory Results no lab data today PG Care Time/CCT Total # of Minutes Spent Total Time Spent with Patient: Total time spent is greater than 50% in coordination of care (as documented) at patient's floor/unit and/or counseling patient: Coding Level of Care Code 59490 Subseq Hosp Care Lvl 2 Diagnoses Colon distention K63.89 Fecal impaction in rectum K56.41 Catheter-associated urinary tract infection T83.511A; N39.0 Encounter type: initial encounter Indwelling urinary catheter type: unspecified Leukocytosis D72.829 Neurogenic bladder N31.9 Pemphigus foliaceus L10.2 Pressure ulcer of thigh, stage 2 L89.212 Laterality: right HTN (hypertension) I10 HLD (hyperlipidemia) E78.5 Diabetes E11.9 Quadriplegia G82.50 Morbid obesity with BMI of 40.0-44.9, adult E66.01; Z68.41 (1) Catheter-associated urinary tract infection Encounter type: initial encounter Indwelling urinary catheter type: unspecified Qualified Code(s): T83.511A - Infection and inflammatory reaction due to indwelling urethral catheter, initial encounter; N39.0 - Urinary tract infection, site not specified (2) Pressure ulcer of thigh, stage 2 Laterality: right Qualified Code(s): L89.212 - Pressure ulcer of right hip, stage 2
[2021-09-21] MEDS ORDERED: INSULIN GLARGINE SOLOSTAR 100 UNITS/ML 3 ML PEN SC SCH (21:00)
[2021-09-21] MEDS: ENOXAPARIN INJ 40 MG/0.4 ML SYR SQ SCH (21:21)
[2021-09-21] MEDS: FAMOTIDINE 40 MG TABLET PO SCH (21:22)
[2021-09-21] MEDS: lisinopril 40 MG TAB PO SCH (21:27)
[2021-09-21] MEDS: POLYETHYLENE (MIRALAX) 17 GM PACK PO SCH (21:28)
[2021-09-22] MEDS: CEFEPIME 2,000 MG in SYRINGE 0 ML IV SCH ×2 (02:00→13:25)
[2021-09-22] MEDS ORDERED: NovoLIN-N (NPH) PER UNIT CHARGE SQ ONE (07:45)
--- NOTE | 2021-09-22 08:13 | Hospitalist Progress Note ---
Date of Service September 22, 2021 Assessment & Plan (1) Colon distention: Plan: Acute on chronic- - Lactate elevated but normalized and no pneumatosis noted on admit - CT of the abdomen and pelvis showed gaseous distention with moderate fecal retention in the left colon consistent with colonic ileus or functional obstruction from fecal load - NGT at LIS upfront. Has since been treated for fecal impaction - Follow-up KUB shows improved gaseous distention - GI following (and since signed off)appreciate recommendations/assistance - NGT subsequently removed. Tolerating oral intake (2) Fecal impaction in rectum: Plan: - S/p digital disimpaction and fleets enema - Chronic fecal impaction - Is not on a chronic bowel regimen other than glycerin suppositories every other day - Have since added Colace and MiraLAX daily, with prn fleets enemas--> working well (3) Catheter-associated urinary tract infection: Plan: - Patient with polymicrobial, multidrug-resistant UTIcatheter associated (multidrug-resistant Pseudomonas and MRSA) - Empiric Merrem transitioned to cefepime/daptomycin based on culture data and multiple drug allergies Will need 14 days of treatment to complete on 10/01 - Patient with recurrent urinary tract infections likely given his chronic suprapubic catheter and his immunocompromise state with an XT and prednisone - Urology consulted and have since exchanged his suprapubic catheter (09/19). Will need exchanged around 09/26-09/27 (4) Leukocytosis: Plan: - Presented with white blood cell count of 12.6 - Could have been reactive from vomiting but also found to have multidrug- resistant UTI - Has since normalized (5) Neurogenic bladder: Plan: Secondary from cervical spine injury in 1993 - continue with suprapubic sims. Exchanged 09/19 by urology (gets exchanged weekly) - Continue bladder irrigation twice daily. - Given history of recurrent UTI, could consider gentamicin bladder irrigation weekly. At discretion of urology - Follow-up with urology as an outpatient (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 - Ordered stress dose steroids which have since been converted to oral. Continue taper - MXT- hold x 2 weeks given active infection (7) Pressure ulcer of thigh, stage 2: Plan: Thigh, sacrum back - turn and reposition q 2 hours - low air mattress ordered - Wound care consulted, appreciate assistance - no active infection (8) HTN (hypertension): Plan: - Continue lisinopril, Norvasc, and hydralazine all as prior to hospitalization - BP has been accelerated --> increase hydralazine to TID - continue to monitor (9) HLD (hyperlipidemia): Plan: -statin currently on hold (10) Diabetes: Plan: - Continue analog with sliding scale/correction dosing - pharmacy managing (11) Quadriplegia: Plan: As above - supportive care (12) Morbid obesity with BMI of 40.0-44.9, adult: Plan: BMI 42noted Plan: Plan d/w Dr. Ness Admission and Anticipated Discharge Date Admission Date: September 16, 2021 Subjective Patient seen on daily rounds today. Denies any complaints or concerns. Moving his bowels without difficulty. Denies abdominal distention, nausea or vomiting. No abdominal pain. Hydralazine was increased and his blood pressure seems to be improving. Review of Systems 2 Review of Systems: All systems reviewed and are unremarkable except as noted in HPI and below Denies fevers, chills, headache, nasal congestion, sore throat, cough, chest pain, shortness of breath, palpitations, orthopnea, PND, abdominal pain, nausea, vomiting, diarrhea, constipation, dysuria, hematuria, frequency, back pain, joint pain or swelling, easy bruising or bleeding, skin lesions or rashes. Physical Exam Physical Exam: General: Resting comfortably in his hospital bed. He does not appear ill or toxic. NAD. HEENT: Head is AT/NC. Buccal mucosa is moist and pink Neck: No JVD. Negative hepatojugular reflex Cardiac: Distant heart soundlikely due to habitus. Lungs: CTA without W/R/R Abdomen:Obese and difficult to examine. Appears to have normal active bowel sounds X4. Abdomen is soft Extremities: No peripheral clubbing cyanosis or edema. mildly contractures of the hands bilaterally Neuro: A&O X4. Cranial nerves II through XII are grossly intact. No focal neuro deficits Skin: No obvious skin lesions or rashes. significant striae of the bilateral chest wall Psych: Appropriate affect. Pleasant and cooperative Results & Data Results & Data ([facility]) Vital Signs (Past 12 Hours) Vital Signs Temp Pulse Resp BP Pulse Ox 09/22/21 07:55 36.3 C L 73 18 180/114 H 97 09/21/21 22:44 36.7 C 74 20 144/83 H 95 09/21/21 21:26 79 159/85 H Laboratory Results No lab data today PG Care Time/CCT Total # of Minutes Spent Total Time Spent with Patient: Total time spent is greater than 50% in coordination of care (as documented) at patient's floor/unit and/or counseling patient: Coding Level of Care Code 19842 Subseq Hosp Care Lvl 1 Diagnoses Colon distention K63.89 Fecal impaction in rectum K56.41 Catheter-associated urinary tract infection T83.511A; N39.0 Encounter type: initial encounter Indwelling urinary catheter type: unspecified Leukocytosis D72.829 Neurogenic bladder N31.9 Pemphigus foliaceus L10.2 Pressure ulcer of thigh, stage 2 L89.212 Laterality: right HTN (hypertension) I10 HLD (hyperlipidemia) E78.5 Diabetes E11.9 Quadriplegia G82.50 Morbid obesity with BMI of 40.0-44.9, adult E66.01; Z68.41 (1) Pressure ulcer of thigh, stage 2 Laterality: right Qualified Code(s): L89.212 - Pressure ulcer of right hip, stage 2 (2) Catheter-associated urinary tract infection Encounter type: initial encounter Indwelling urinary catheter type: unspecified Qualified Code(s): T83.511A - Infection and inflammatory reaction due to indwelling urethral catheter, initial encounter; N39.0 - Urinary tract infection, site not specified
[2021-09-22] MEDS: BACLOFEN 10 MG TAB PO SCH ×3 (08:28→21:26)
[2021-09-22] MEDS: amLODIPine BESYLATE 5 MG TAB PO SCH (08:28)
[2021-09-22] MEDS: predniSONE 10 MG TABLET PO SCH (08:28)
[2021-09-22] MEDS: hydrALAZINE HCL 25 MG TAB PO SCH ×3 (08:28→21:26)
[2021-09-22] MEDS: MAGNESIUM OXIDE 400 MG TAB PO SCH ×2 (08:30→21:27)
[2021-09-22] MEDS: DAPTOmycin 525 MG in SYRINGE 0 ML IV SCH (08:34)
[2021-09-22] MEDS: INSULIN ASPART PER UNIT SC SCH ×4 (09:32→21:35)
--- NOTE | 2021-09-22 10:09 | Pharmacy Report ---
Pharmacy Glycemic Short Note 2 - Date of Service September 22, 2021 - Glycemic Short BSG Results (Last 24 hours): 09/21/21 09/21/21 09/21/21 11:57 17:14 20:46 POC Glucose 203 H 273 H 247 H 09/22/21 08:30 POC Glucose 98 OUTPATIENT ANTIDIABETIC REGIMEN: * Glipizide ER 10 mg PO AM * Metformin 1000 mg PO BIDM * HbA1c = 7.5% (08/29/21) ASSESSMENT: 09/21/21: * Blood sugars continue rising throughout the day, tighten CR and CF with meals and increase NPH. * Prednisone continues at 30mg PO daily. * Loosen CF/CR at HS to prevent AM Hypoglycemia 09/21/21: * Blood sugars rising throughout the day the past 2 days, tighten CR and CF at this time. * Fasting blood sugars at goal, no change in basal at this time. * Prednisone decreased to 30mg PO daily starting today. 09/19/21: * Fating BSG of 120 mg/dL this morning is near goal. No indication to add long acting basal insulin at this time. * Anticipate post prandial hyperglycemia with the addition of prednisone 50 mg daily. Will start a conservative dose of once daily NPH and titrate as needed. May need to tighten carb coverage also. Background: * 51 yo M admitted on 09/16/21 secondary to abdominal pain. Patient has not been receiving any antidiabetic medications since admission. 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 * Has been on stress dose steroids since 09/17/21 (Solucortef 100 mg IV Q8H). Changed to Solucortef 50 mg IV Q12h on 09/18/21. Prednisone 50 mg AM will be starting on the morning of 09/19/21. * Diet has been advanced today as NG tube was pulled. Given diet is ordered and Prednisone is being started, will order sliding scale insulin for this evening. * Patient may require NPH dosing with Prednisone starting tomorrow morning. Will leave this decision to floor pharmacist in the morning. PLAN FOR INPATIENT GLYCEMIC CONTROL: * Hold outpatient oral diabetes medications * Basal insulin * NPH 30 units SQ daily with prednisone * Bolus insulin * NovoLog per scale AC * Goal Range: Low 110 mg/dL - High 140 mg/dL * Correction Factor: 12 mg/dL/unit * Nutritional / Prandial insulin per carb ratio of 1 unit per 3 grams CHO consumed * NovoLog per scale HS * Goal Range: Low 110 mg/dL - High 140 mg/dL * Correction Factor: 25 mg/dL/unit * Nutritional / Prandial insulin per carb ratio of 1 unit per 8 grams CHO consumed
[2021-09-22] MEDS: ENOXAPARIN INJ 40 MG/0.4 ML SYR SQ SCH (21:25)
[2021-09-22] MEDS: POLYETHYLENE (MIRALAX) 17 GM PACK PO SCH (21:26)
[2021-09-22] MEDS: FAMOTIDINE 40 MG TABLET PO SCH (21:27)
[2021-09-22] MEDS: lisinopril 40 MG TAB PO SCH (21:27)
[2021-09-23] MEDS: CEFEPIME 2,000 MG in SYRINGE 0 ML IV SCH ×2 (00:33→13:01)
[2021-09-23] MEDS: hydrALAZINE HCL 25 MG TAB PO SCH ×3 (08:00→21:18)
[2021-09-23] MEDS: MAGNESIUM OXIDE 400 MG TAB PO SCH ×2 (08:00→21:18)
[2021-09-23] MEDS: predniSONE 10 MG TABLET PO SCH (08:01)
[2021-09-23] MEDS: amLODIPine BESYLATE 5 MG TAB PO SCH (08:01)
[2021-09-23] MEDS: BACLOFEN 10 MG TAB PO SCH ×3 (08:01→21:18)
[2021-09-23] MEDS: DAPTOmycin 525 MG in SYRINGE 0 ML IV SCH (08:02)
[2021-09-23] MEDS ORDERED: NovoLIN-N (NPH) PER UNIT CHARGE SQ ONE (09:00)
[2021-09-23] MEDS: INSULIN ASPART PER UNIT SC SCH ×4 (09:01→21:17)
[2021-09-23] MEDS: GLYCERIN ADULT 12 SUPP/BOX SUPP PR SCH (09:04)
--- NOTE | 2021-09-23 16:55 | Hospitalist Progress Note ---
Date of Service September 23, 2021 Assessment & Plan (1) Colon distention: Plan: Acute on chronic- - Lactate elevated but normalized and no pneumatosis noted on admit - CT of the abdomen and pelvis showed gaseous distention with moderate fecal retention in the left colon consistent with colonic ileus or functional obstruction from fecal load - NGT at LIS upfront. Has since been treated for fecal impaction - Follow-up KUB shows improved gaseous distention - GI following (and since signed off)appreciate recommendations/assistance - NGT subsequently removed. Tolerating oral intake (2) Fecal impaction in rectum: Plan: - S/p digital disimpaction and fleets enema - Chronic fecal impaction - Is not on a chronic bowel regimen other than glycerin suppositories every other day - Have since added Colace and MiraLAX daily, with prn fleets enemas--> working well (3) Catheter-associated urinary tract infection: Plan: - Patient with polymicrobial, multidrug-resistant UTIcatheter associated (multidrug-resistant Pseudomonas and MRSA) - Empiric Merrem transitioned to cefepime/daptomycin based on culture data and multiple drug allergies Will need 14 days of treatment to complete on 10/01 - Patient with recurrent urinary tract infections likely given his chronic suprapubic catheter and his immunocompromise state with MXT and prednisone - Urology consulted and have since exchanged his suprapubic catheter (09/19). Will need exchanged around 09/26-09/27 (4) Leukocytosis: Plan: - Presented with white blood cell count of 12.6 - Could have been reactive from vomiting but also found to have multidrug- resistant UTI - Has since normalized (5) Neurogenic bladder: Plan: Secondary from cervical spine injury in 1993 - continue with suprapubic sims. Exchanged 09/19 by urology (gets exchanged weekly) - Continue bladder irrigation twice daily. - Given history of recurrent UTI, could consider gentamicin bladder irrigation weekly. At discretion of urology - Follow-up with urology as an outpatient (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 - Ordered stress dose steroids which have since been converted to oral. Continue taper down to 10mg usual dose - MXT- hold x 2 weeks given active infection (7) Pressure ulcer of thigh, stage 2: Plan: Thigh, sacrum back - turn and reposition q 2 hours - low air mattress ordered - Wound care consulted, appreciate assistance - no active infection (8) HTN (hypertension): Plan: - Continue lisinopril, Norvasc, and hydralazine all as prior to hospitalization - BP has been accelerated --> increased hydralazine to TID. BP currently 117/71 - continue to monitor (9) HLD (hyperlipidemia): Plan: -statin currently on hold (10) Diabetes: Plan: - Continue analog with sliding scale/correction dosing - pharmacy managing (11) Quadriplegia: Plan: As above - supportive care (12) Morbid obesity with BMI of 40.0-44.9, adult: Plan: BMI 42noted Plan: Plan to be D/W Dr. Sprague Admission and Anticipated Discharge Date Admission Date: September 16, 2021 Subjective Patient seen on daily rounds today. Moving bowels without any difficulty. Denies abdominal pain/distention and is passing gas. Denies fevers, chills, chest pain, shortness of breath, abdominal pain, nausea or vomiting. Nursing voices no complaints or concerns. Review of Systems Review of Systems: All systems reviewed and are unremarkable except as noted in HPI and below Denies fevers, chills, headache, nasal congestion, sore throat, cough, chest pain, shortness of breath, palpitations, orthopnea, PND, abdominal pain, nausea, vomiting, diarrhea, constipation, dysuria, hematuria, frequency, back pain, joint pain or swelling, easy bruising or bleeding, skin lesions or rashes. Physical Exam Physical Exam: General: Resting comfortably in his hospital bed. He does not appear ill or toxic. NAD. HEENT: Head is AT/NC. Buccal mucosa is moist and pink Neck: No JVD. Negative hepatojugular reflex Cardiac: Distant heart soundlikely due to habitus. Lungs: CTA without W/R/R Abdomen:Obese and difficult to examine. Appears to have normal active bowel sounds X4. Abdomen is soft and nontender. Suprapubic catheter in place Extremities: No peripheral clubbing cyanosis or edema. mildly contractures of the hands bilaterally Neuro: A&O X4. Cranial nerves II through XII are grossly intact. No focal neuro deficits Skin: No obvious skin lesions or rashes. significant striae of the bilateral chest wall Psych: Appropriate affect. Pleasant and cooperative Results & Data Results & Data ([facility]) Vital Signs (Past 12 Hours) Vital Signs Temp Pulse Resp BP Pulse Ox 09/23/21 14:18 36.6 C 67 17 117/71 96 09/23/21 07:22 36.5 C 70 17 165/95 H 98 Laboratory Results No lab data today PG Care Time/CCT Total # of Minutes Spent Total Time Spent with Patient: Total time spent is greater than 50% in coordination of care (as documented) at patient's floor/unit and/or counseling patient: Coding Level of Care Code 84777 Subseq Hosp Care Lvl 1 Diagnoses Colon distention K63.89 Fecal impaction in rectum K56.41 Catheter-associated urinary tract infection T83.511A; N39.0 Encounter type: initial encounter Indwelling urinary catheter type: unspecified Leukocytosis D72.829 Neurogenic bladder N31.9 Pemphigus foliaceus L10.2 Pressure ulcer of thigh, stage 2 L89.212 Laterality: right HTN (hypertension) I10 HLD (hyperlipidemia) E78.5 Diabetes E11.9 Quadriplegia G82.50 Morbid obesity with BMI of 40.0-44.9, adult E66.01; Z68.41 (1) Catheter-associated urinary tract infection Encounter type: initial encounter Indwelling urinary catheter type: unspecified Qualified Code(s): T83.511A - Infection and inflammatory reaction due to indwelling urethral catheter, initial encounter; N39.0 - Urinary tract infection, site not specified (2) Pressure ulcer of thigh, stage 2 Laterality: right Qualified Code(s): L89.212 - Pressure ulcer of right hip, stage 2
[2021-09-23] MEDS: ENOXAPARIN INJ 40 MG/0.4 ML SYR SQ SCH (21:18)
[2021-09-23] MEDS: FAMOTIDINE 40 MG TABLET PO SCH (21:18)
[2021-09-23] MEDS: lisinopril 40 MG TAB PO SCH (21:18)
[2021-09-23] MEDS: POLYETHYLENE (MIRALAX) 17 GM PACK PO SCH (21:18)
[2021-09-24] MEDS: CEFEPIME 2,000 MG in SYRINGE 0 ML IV SCH ×2 (01:14→13:37)
[2021-09-24] MEDS: DAPTOmycin 525 MG in SYRINGE 0 ML IV SCH (08:12)
[2021-09-24] MEDS: amLODIPine BESYLATE 5 MG TAB PO SCH (08:12)
[2021-09-24] MEDS: BACLOFEN 10 MG TAB PO SCH ×3 (08:13→20:38)
[2021-09-24] MEDS: MAGNESIUM OXIDE 400 MG TAB PO SCH ×2 (08:13→20:53)
[2021-09-24] MEDS: predniSONE 20 MG TAB PO SCH (08:13)
[2021-09-24 08:14] LABS: Creatine Kinase 51 U/L (30-223); Creatinine Clr Calc Pharmacy 261.8 ml/min; Est GFR (African American) > 150.0 ml/min; Est GFR (Non-African American) 134.8 ml/min
[2021-09-24] MEDS: hydrALAZINE HCL 25 MG TAB PO SCH ×3 (08:14→20:54)
--- NOTE | 2021-09-24 08:30 | Pharmacy Report ---
Pharmacy Glycemic Short Note 2 - Date of Service September 24, 2021 - Glycemic Short BSG Results (Last 24 hours): 09/23/21 09/23/21 09/23/21 12:09 16:45 20:25 POC Glucose 155 H 201 H 239 H 09/24/21 08:02 POC Glucose 103 H OUTPATIENT ANTIDIABETIC REGIMEN: * Glipizide ER 10 mg PO AM * Metformin 1000 mg PO BIDM * HbA1c = 7.5% (08/29/21) ASSESSMENT: 09/24/21: * Patient received total of 78 units of insulin yesterday, of which 30 units were NPH * Fasting BSG 103 mg/dL - prednisone decreased to 20 mg daily from 30 mg daily, plan to scale back slightly on NPH to 25 units daily * Continue same CF/CR for now 09/22/21: * Blood sugars continue rising throughout the day, tighten CR and CF with meals and increase NPH. * Prednisone continues at 30mg PO daily. * Loosen CF/CR at HS to prevent AM Hypoglycemia 09/21/21: * Blood sugars rising throughout the day the past 2 days, tighten CR and CF at this time. * Fasting blood sugars at goal, no change in basal at this time. * Prednisone decreased to 30mg PO daily starting today. 09/19/21: * Fating BSG of 120 mg/dL this morning is near goal. No indication to add long acting basal insulin at this time. * Anticipate post prandial hyperglycemia with the addition of prednisone 50 mg daily. Will start a conservative dose of once daily NPH and titrate as needed. May need to tighten carb coverage also. Background: * 51 yo M admitted on 09/16/21 secondary to abdominal pain. Patient has not been receiving any antidiabetic medications since admission. 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 * Has been on stress dose steroids since 09/17/21 (Solucortef 100 mg IV Q8H). Changed to Solucortef 50 mg IV Q12h on 09/18/21. Prednisone 50 mg AM will be starting on the morning of 09/19/21. * Diet has been advanced today as NG tube was pulled. Given diet is ordered and Prednisone is being started, will order sliding scale insulin for this evening. * Patient may require NPH dosing with Prednisone starting tomorrow morning. Will leave this decision to floor pharmacist in the morning. PLAN FOR INPATIENT GLYCEMIC CONTROL: * Hold outpatient oral diabetes medications * Basal insulin * NPH 25 units SQ daily with prednisone 20 mg daily * Bolus insulin * NovoLog per scale AC * Goal Range: Low 110 mg/dL - High 140 mg/dL * Correction Factor: 12 mg/dL/unit * Nutritional / Prandial insulin per carb ratio of 1 unit per 4 grams CHO consumed * NovoLog per scale HS * Goal Range: Low 110 mg/dL - High 140 mg/dL * Correction Factor: 25 mg/dL/unit * Nutritional / Prandial insulin per carb ratio of 1 unit per 8 grams CHO consumed
[2021-09-24] MEDS ORDERED: NovoLIN-N (NPH) PER UNIT CHARGE SQ ONE (09:00)
[2021-09-24] MEDS: INSULIN ASPART PER UNIT SC SCH ×4 (09:39→20:37)
--- NOTE | 2021-09-24 15:09 | Hospitalist Progress Note ---
Date of Service September 24, 2021 Assessment & Plan (1) Colon distention: Plan: Acute on chronic- - Lactate elevated but normalized and no pneumatosis noted on admit - CT of the abdomen and pelvis showed gaseous distention with moderate fecal retention in the left colon consistent with colonic ileus or functional obstruction from fecal load - NGT at LIS upfront. Has since been treated for fecal impaction - Follow-up KUB shows improved gaseous distention - GI following (and since signed off)appreciate recommendations/assistance - NGT subsequently removed. Tolerating oral intake (2) Fecal impaction in rectum: Plan: - S/p digital disimpaction and fleets enema - Chronic fecal impaction - Is not on a chronic bowel regimen other than glycerin suppositories every other day - Have since added Colace and MiraLAX daily, with prn fleets enemas--> working well (3) Catheter-associated urinary tract infection: Plan: - Patient with polymicrobial, multidrug-resistant UTIcatheter associated (multidrug-resistant Pseudomonas and MRSA) - Empiric Merrem transitioned to cefepime/daptomycin based on culture data and multiple drug allergies Will need 14 days of treatment to complete on 10/01 - Patient with recurrent urinary tract infections likely given his chronic suprapubic catheter and his immunocompromise state with MXT and prednisone - Urology consulted and have since exchanged his suprapubic catheter (09/19). Will need exchanged around 09/26-09/27 (4) Leukocytosis: Plan: - Presented with white blood cell count of 12.6 - Could have been reactive from vomiting but also found to have multidrug- resistant UTI - Has since normalized (5) Neurogenic bladder: Plan: Secondary from cervical spine injury in 1993 - continue with suprapubic sims. Exchanged 09/19 by urology (gets exchanged weekly) - Continue bladder irrigation twice daily. - Given history of recurrent UTI, could consider gentamicin bladder irrigation weekly. At discretion of urology - Follow-up with urology as an outpatient (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 - Ordered stress dose steroids which have since been converted to oral. Continue taper down to 10mg usual dose - MXT- hold x 2 weeks given active infection (7) Pressure ulcer of thigh, stage 2: Plan: Thigh, sacrum back - turn and reposition q 2 hours - low air mattress ordered - Wound care consulted, appreciate assistance - no active infection (8) HTN (hypertension): Plan: - Continue lisinopril, Norvasc, and hydralazine all as prior to hospitalization - BP has been accelerated --> increased hydralazine to TID. BP currently 112/68 - continue to monitor (9) HLD (hyperlipidemia): Plan: -statin on hold given interaction with Daptomycin. Resume upon D/C (10) Diabetes: Plan: - Continue analog with sliding scale/correction dosing - pharmacy managing-- appreciate assistance (11) Quadriplegia: Plan: As above - supportive care (12) Morbid obesity with BMI of 40.0-44.9, adult: Plan: BMI 42noted Plan: Patient has been medically and hemodynamically stable for discharge; however, requires IV antibiotic therapy. Case management working on placement; however, this has proven difficult as no facilities agreed to daptomycin. Unfortunately with his multidrug resistance and allergies, no other antibiotic options. In addition, limited facilities given his suprapubic catheter. Will likely complete IV antibiotics while in-house. Plan to be D/W Dr. Sprague Admission and Anticipated Discharge Date Admission Date: September 16, 2021 Subjective Patient seen on daily rounds today. Moving bowels without any difficulty. Denies abdominal pain/distention and is passing gas. Denies fevers, chills, chest pain, shortness of breath, abdominal pain, nausea or vomiting. Nursing voices no complaints or concerns. Tolerating antibiotics without ill effects Review of Systems Review of Systems: All systems reviewed and are unremarkable except as noted in HPI and below Denies fevers, chills, headache, nasal congestion, sore throat, cough, chest pain, shortness of breath, palpitations, orthopnea, PND, abdominal pain, nausea, vomiting, diarrhea, constipation, dysuria, hematuria, frequency, back pain, joint pain or swelling, easy bruising or bleeding, skin lesions or rashes. Physical Exam Physical Exam: General: Resting comfortably in his hospital bed. He does not appear ill or toxic. NAD. HEENT: Head is AT/NC. Buccal mucosa is moist and pink Neck: No JVD. Negative hepatojugular reflex Cardiac: Distant heart soundlikely due to habitus. Lungs: CTA without W/R/R Abdomen:Obese and difficult to examine. Appears to have normal active bowel sounds X4. Abdomen is soft and nontender. Suprapubic catheter in place Extremities: No peripheral clubbing cyanosis or edema. mildly contractures of the hands bilaterally Neuro: A&O X4. Cranial nerves II through XII are grossly intact. No focal neuro deficits Skin: No obvious skin lesions or rashes. significant striae of the bilateral chest wall Psych: Appropriate affect. Pleasant and cooperative Results & Data Results & Data ([facility]) Vital Signs (Past 12 Hours) Vital Signs Temp Pulse Resp BP Pulse Ox 09/24/21 06:55 36.8 C 76 20 153/75 H 93 Laboratory Results no lab data today PG Care Time/CCT Total # of Minutes Spent Total Time Spent with Patient: Total time spent is greater than 50% in coordination of care (as documented) at patient's floor/unit and/or counseling patient: Coding Level of Care Code 01148 Subseq Hosp Care Lvl 1 Diagnoses Colon distention K63.89 Fecal impaction in rectum K56.41 Catheter-associated urinary tract infection T83.511A; N39.0 Encounter type: initial encounter Indwelling urinary catheter type: unspecified Leukocytosis D72.829 Neurogenic bladder N31.9 Pemphigus foliaceus L10.2 Pressure ulcer of thigh, stage 2 L89.212 Laterality: right HTN (hypertension) I10 HLD (hyperlipidemia) E78.5 Diabetes E11.9 Quadriplegia G82.50 Morbid obesity with BMI of 40.0-44.9, adult E66.01; Z68.41 (1) Pressure ulcer of thigh, stage 2 Laterality: right Qualified Code(s): L89.212 - Pressure ulcer of right hip, stage 2 (2) Catheter-associated urinary tract infection Encounter type: initial encounter Indwelling urinary catheter type: unspecified Qualified Code(s): T83.511A - Infection and inflammatory reaction due to indwelling urethral catheter, initial encounter; N39.0 - Urinary tract infection, site not specified
[2021-09-24] MEDS: POLYETHYLENE (MIRALAX) 17 GM PACK PO SCH (20:40)
[2021-09-24] MEDS: ENOXAPARIN INJ 40 MG/0.4 ML SYR SQ SCH (20:53)
[2021-09-24] MEDS: FAMOTIDINE 40 MG TABLET PO SCH (20:53)
[2021-09-24] MEDS: lisinopril 40 MG TAB PO SCH (20:54)
[2021-09-25] MEDS: CEFEPIME 2,000 MG in SYRINGE 0 ML IV SCH ×2 (00:35→12:50)
[2021-09-25 08:01] LABS: Basophils # (auto) 0.02 K/uL (0-0.2); Basophils % (auto) 0.3 %; Eosinophils # (auto) 0.26 K/uL (0-0.5); Eosinophils % (auto) 3.4 %; Hematocrit (blood only) 36.6 % (42-52); Hemoglobin 12.1 g/dL (14.0-18.0); Immature Granulocytes # (auto) 0.02 K/uL (0.00-0.02); Immature Granulocytes % (auto) 0.3 %; Lymphocytes % (auto) 26.4 %; Mean Corpuscular Hemoglobin 28.9 pg (25-34); Mean Corpuscular Hgb Conc 33.1 g/dL (32-36); Mean Corpuscular Volume 87.4 fL (80-100); Mean Platelet Volume 10.5 fL (7.4-10.4); Monocytes # (auto) 0.74 K/uL (0.11-0.59); Monocytes % (auto) 9.8 %; Neutrophils # (auto) 4.54 K/uL (1.4-6.5); Neutrophils % (auto) 59.8 %; Platelet Count 305 K/uL (130-400); RDW Coefficient of Variation 16.9 % (11.5-14.5); RDW Standard Deviation 53.6 fL (36.4-46.3); Red Blood Count 4.19 M/uL (4.7-6.1); White Blood Count 7.58 K/uL (4.8-10.8)
[2021-09-25] MEDS: DAPTOmycin 525 MG in SYRINGE 0 ML IV SCH (08:17)
[2021-09-25] MEDS: BACLOFEN 10 MG TAB PO SCH ×3 (08:17→21:57)
[2021-09-25] MEDS: cloNIDine HCL 0.1 MG TAB PO PRN (08:18)
[2021-09-25] MEDS: hydrALAZINE HCL 25 MG TAB PO SCH ×3 (08:19→21:57)
[2021-09-25] MEDS: predniSONE 20 MG TAB PO SCH (08:19)
[2021-09-25] MEDS: amLODIPine BESYLATE 5 MG TAB PO SCH (08:20)
[2021-09-25] MEDS: MAGNESIUM OXIDE 400 MG TAB PO SCH ×2 (08:20→21:57)
[2021-09-25] MEDS: GLYCERIN ADULT 12 SUPP/BOX SUPP PR SCH (08:21)
[2021-09-25 08:29] LABS: Anion Gap 7 (3-11); Blood Urea Nitrogen 17 mg/dl (6-23); Calcium 8.8 mg/dl (8.5-10.1); Carbon Dioxide 27 mmol/L (21-32); Chloride 105 mmol/L (98-107); Creatinine Clr Calc Pharmacy 323.4 ml/min; Est GFR (African American) > 150.0 ml/min; Glucose 103 mg/dl (70-99(Fasting)); Magnesium 1.9 mg/dl (1.7-2.4); Potassium 3.7 mmol/L (3.5-5.1); Sodium 139 mmol/L (136-145)
[2021-09-25] MEDS: INSULIN ASPART PER UNIT SC SCH ×4 (08:52→21:58)
--- NOTE | 2021-09-25 12:00 | Hospitalist Progress Note ---
Date of Service September 25, 2021 Assessment & Plan (1) Colon distention: Plan: Acute on chronic- - Lactate elevated but normalized and no pneumatosis noted on admit - CT of the abdomen and pelvis showed gaseous distention with moderate fecal retention in the left colon consistent with colonic ileus or functional obstruction from fecal load - NGT at LIS upfront. Has since been treated for fecal impaction - Follow-up KUB shows improved gaseous distention - GI following (and since signed off)appreciate recommendations/assistance - NGT subsequently removed. Tolerating oral intake (2) Fecal impaction in rectum: Plan: - S/p digital disimpaction and fleets enema - Chronic fecal impaction - Is not on a chronic bowel regimen other than glycerin suppositories every other day - Have since added Colace and MiraLAX daily, with prn fleets enemas--> working well (3) Catheter-associated urinary tract infection: Plan: - Patient with polymicrobial, multidrug-resistant UTIcatheter associated (multidrug-resistant Pseudomonas and MRSA) - Empiric Merrem transitioned to cefepime/daptomycin based on culture data and multiple drug allergies --Will need 14 days of Cefepime for pseudomonas to complete on 10/01 --needs 10 day Daptomycin for MRSA to complete on 09/28 - Patient with recurrent urinary tract infections likely given his chronic suprapubic catheter and his immunocompromise state with MXT and prednisone - Urology consulted and have since exchanged his suprapubic catheter (09/19). Will need exchanged around 09/26-09/27 (will need to reconsult Urology) (4) Leukocytosis: Plan: - Presented with white blood cell count of 12.6 - Could have been reactive from vomiting but also found to have multidrug- resistant UTI - Has since normalized (5) Neurogenic bladder: Plan: Secondary from cervical spine injury in 1993 - continue with suprapubic sims. Exchanged 09/19 by urology (gets exchanged weekly) - Continue bladder irrigation twice daily. - Given history of recurrent UTI, could consider gentamicin bladder irrigation weekly. At discretion of urology - Follow-up with urology as an outpatient (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 - Pt received IV stress steroids and subsequent tapering course to his usual 10mg dosing - MXT- hold x 2 weeks given active infection (7) Pressure ulcer of thigh, stage 2: Plan: Thigh, sacrum back - turn and reposition q 2 hours - low air mattress ordered - Wound care consulted, appreciate assistance - no active infection (8) HTN (hypertension): Plan: - Continue lisinopril, Norvasc, and hydralazine all as prior to hospitalization - BP has been accelerated --> increased hydralazine to TID. BP currently 119/80 - continue to monitor (9) HLD (hyperlipidemia): Plan: -statin on hold given interaction with Daptomycin. Resume upon D/C (10) Diabetes: Plan: - Continue analog with sliding scale/correction dosing - pharmacy managing-- appreciate assistance (11) Quadriplegia: Plan: As above - supportive care (12) Morbid obesity with BMI of 40.0-44.9, adult: Plan: BMI 42noted Plan: Patient has been medically and hemodynamically stable for discharge; however, requires IV antibiotic therapy. Case management working on placement; however, this has proven difficult as no facilities agreed to daptomycin. Unfortunately with his multidrug resistance and allergies, no other antibiotic options. In addition, limited facilities given his suprapubic catheter. Will likely complete IV antibiotics while in-house. Plan to be D/W Dr. Sprague Admission and Anticipated Discharge Date Admission Date: September 16, 2021 Subjective Patient seen on daily rounds today. Moving bowels without any difficulty. Denies abdominal pain/distention and is passing gas. Having daily BM's. Denies fevers, chills, chest pain, shortness of breath, abdominal pain, nausea or vomiting. Nursing voices no complaints or concerns. Tolerating antibiotics without ill effects Review of Systems Review of Systems: All systems reviewed and are unremarkable except as noted in HPI and below Denies fevers, chills, headache, nasal congestion, sore throat, cough, chest pain, shortness of breath, palpitations, orthopnea, PND, abdominal pain, nausea, vomiting, diarrhea, constipation, dysuria, hematuria, frequency, back pain, joint pain or swelling, easy bruising or bleeding, skin lesions or rashes. Physical Exam Physical Exam: General: Resting comfortably in his hospital bed. He does not appear ill or toxic. NAD. HEENT: Head is AT/NC. Buccal mucosa is moist and pink Neck: No JVD. Negative hepatojugular reflex Cardiac: Distant heart soundlikely due to habitus. Lungs: CTA without W/R/R Abdomen:Obese and difficult to examine. Appears to have normal active bowel sounds X4. Abdomen is soft and nontender. Suprapubic catheter in place Extremities: No peripheral clubbing cyanosis or edema. mildly contractures of the hands bilaterally Neuro: A&O X4. Cranial nerves II through XII are grossly intact. No focal neuro deficits Skin: No obvious skin lesions or rashes. significant striae of the bilateral chest wall Psych: Appropriate affect. Pleasant and cooperative Results & Data Results & Data ([facility]) Vital Signs (Past 12 Hours) Vital Signs Temp Pulse Resp BP Pulse Ox 09/25/21 07:08 36.5 C 78 20 119/80 96 Laboratory Results 09/25/21 07:26 09/25/21 07:26 PG Care Time/CCT Total # of Minutes Spent Total Time Spent with Patient: Total time spent is greater than 50% in coordination of care (as documented) at patient's floor/unit and/or counseling patient: Coding Level of Care Code 66616 Subseq Hosp Care Lvl 1 Diagnoses Colon distention K63.89 Fecal impaction in rectum K56.41 Catheter-associated urinary tract infection T83.511A; N39.0 Encounter type: initial encounter Indwelling urinary catheter type: unspecified Leukocytosis D72.829 Neurogenic bladder N31.9 Pemphigus foliaceus L10.2 Pressure ulcer of thigh, stage 2 L89.212 Laterality: right HTN (hypertension) I10 HLD (hyperlipidemia) E78.5 Diabetes E11.9 Quadriplegia G82.50 Morbid obesity with BMI of 40.0-44.9, adult E66.01; Z68.41 (1) Catheter-associated urinary tract infection Encounter type: initial encounter Indwelling urinary catheter type: unspecified Qualified Code(s): T83.511A - Infection and inflammatory reaction due to indwelling urethral catheter, initial encounter; N39.0 - Urinary tract infection, site not specified (2) Pressure ulcer of thigh, stage 2 Laterality: right Qualified Code(s): L89.212 - Pressure ulcer of right hip, stage 2
[2021-09-25] MEDS: FAMOTIDINE 40 MG TABLET PO SCH (21:56)
[2021-09-25] MEDS: lisinopril 40 MG TAB PO SCH (21:56)
[2021-09-25] MEDS: ENOXAPARIN INJ 40 MG/0.4 ML SYR SQ SCH (21:57)
[2021-09-25] MEDS: POLYETHYLENE (MIRALAX) 17 GM PACK PO SCH (21:59)
[2021-09-26] MEDS: CEFEPIME 2,000 MG in SYRINGE 0 ML IV SCH ×2 (00:01→12:45)
[2021-09-26] MEDS: BACLOFEN 10 MG TAB PO SCH ×3 (09:11→21:23)
[2021-09-26] MEDS: predniSONE 10 MG TABLET PO SCH (09:16)
[2021-09-26] MEDS: amLODIPine BESYLATE 5 MG TAB PO SCH (09:16)
[2021-09-26] MEDS: hydrALAZINE HCL 25 MG TAB PO SCH ×3 (09:17→21:23)
[2021-09-26] MEDS: MAGNESIUM OXIDE 400 MG TAB PO SCH ×2 (09:17→21:23)
[2021-09-26] MEDS: INSULIN ASPART PER UNIT SC SCH ×4 (09:25→21:22)
[2021-09-26] MEDS: DAPTOmycin 525 MG in SYRINGE 0 ML IV SCH (09:26)
--- NOTE | 2021-09-26 13:28 | Pharmacy Report ---
Pharmacy Glycemic Short Note 2 - Date of Service September 26, 2021 - Glycemic Short BSG Results (Last 24 hours): 09/25/21 09/25/21 09/26/21 17:20 20:32 08:27 POC Glucose 185 H 163 H 154 H 09/26/21 12:09 POC Glucose 153 H OUTPATIENT ANTIDIABETIC REGIMEN: * Glipizide ER 10 mg PO AM * Metformin 1000 mg PO BIDM * HbA1c = 7.5% (08/29/21) ASSESSMENT: 09/26/21 * Patient received a total of 43 units of insulin (all bolus). * BSGs yesterday [phone] mg/dL. * Patient to receive prednisone 10 mg today so will continue Novolog as prior. Hold NPH. 09/24/21: * Patient received total of 78 units of insulin yesterday, of which 30 units were NPH * Fasting BSG 103 mg/dL - prednisone decreased to 20 mg daily from 30 mg daily, plan to scale back slightly on NPH to 25 units daily * Continue same CF/CR for now 09/22/21: * Blood sugars continue rising throughout the day, tighten CR and CF with meals and increase NPH. * Prednisone continues at 30mg PO daily. * Loosen CF/CR at HS to prevent AM Hypoglycemia 09/21/21: * Blood sugars rising throughout the day the past 2 days, tighten CR and CF at this time. * Fasting blood sugars at goal, no change in basal at this time. * Prednisone decreased to 30mg PO daily starting today. 09/19/21: * Fating BSG of 120 mg/dL this morning is near goal. No indication to add long acting basal insulin at this time. * Anticipate post prandial hyperglycemia with the addition of prednisone 50 mg daily. Will start a conservative dose of once daily NPH and titrate as needed. May need to tighten carb coverage also. Background: * 51 yo M admitted on 09/16/21 secondary to abdominal pain. Patient has not been receiving any antidiabetic medications since admission. 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 * Has been on stress dose steroids since 09/17/21 (Solucortef 100 mg IV Q8H). Changed to Solucortef 50 mg IV Q12h on 09/18/21. Prednisone 50 mg AM will be starting on the morning of 09/19/21. * Diet has been advanced today as NG tube was pulled. Given diet is ordered and Prednisone is being started, will order sliding scale insulin for this evening. * Patient may require NPH dosing with Prednisone starting tomorrow morning. Will leave this decision to floor pharmacist in the morning. PLAN FOR INPATIENT GLYCEMIC CONTROL: * Hold outpatient oral diabetes medications * Basal insulin * Hold NPH * Bolus insulin * NovoLog per scale AC * Goal Range: Low 110 mg/dL - High 140 mg/dL * Correction Factor: 12 mg/dL/unit * Nutritional / Prandial insulin per carb ratio of 1 unit per 4 grams CHO consumed * NovoLog per scale HS * Goal Range: Low 110 mg/dL - High 140 mg/dL * Correction Factor: 25 mg/dL/unit * Nutritional / Prandial insulin per carb ratio of 1 unit per 8 grams CHO consumed
--- NOTE | 2021-09-26 14:40 | Urology Progress Note ---
Date of Service September 26, 2021 Assessment & Plan (1) Suprapubic catheter: Plan: - Urology reconsulted to exchange suprapubic catheter, last exchanged 09/19/21. - He is afebrile, hemodynamically stable. - Urine culture grew out Pseudomonas and Staph aureus MRSA, blood cultures final no growth. - Currently on IV Daptomycin and Cefepime - continue antibiotic management per primary service. - Using sterile technique, 20F suprapubic catheter exchanged at bedside without difficulty. - Catheter was flushed, patent, and draining. Pt tolerated well. - Continue with routine catheter changes and flushes as previously recommended. - Continue supportive care and antibiotics per primary service. - Continue with services for routine catheter care upon discharge. - Expected clinical course reviewed with patient, all questions answered. - Will arrange outpatient follow-up with our service. Thank you for allowing us to participate in the acute care of Mr. Henry. Please reconsult us with additional questions, concerns or changes in patient status. Admission and Anticipated Discharge Date Admission Date: September 16, 2021 Subjective Urology reconsulted for suprapubic catheter exchange. Patient seen and examined at bedside this afternoon. He is awake, alert and resting comfortably in bed. No acute complaints at present. Patient requesting SP tube exchange as he feels the catheter is not draining as well as usual. SP tube exchanges are done once weekly by home nursing, he flushes his catheter BID at home. Last SP exchange was 1 week ago on 09/19/21. Nursing has been flushing his SP tube daily while inpatient. Offers no additional complaints. Review of Systems Constitutional: as per Subjective / HPI Genitourinary: + as per Subjective / HPI Physical Exam Constitutional: + obese; no acute distress Respiratory: normal respiratory effort; no respiratory distress and no labored breathing Skin: Warm and dry Neurologic: awake Psychiatric: Orientation: alert and oriented x 3 Genitourinary: SP catheter intact, patent and draining clear yellow urine. Using sterile technique, suprapubic catheter was exchanged at bedside without difficulty. Balloon was inflated with 10 mL. Catheter was flushed, patent, and draining. Pt tolerated well. Results & Data ([facility]) Vital Signs (Past 12 Hours) Vital Signs Temp Pulse Pulse Resp BP Pulse Ox 09/26/21 13:51 96/60 L 09/26/21 11:33 36.5 C 85 15 153/86 H 95 09/26/21 10:08 84 135/82 09/26/21 09:09 84 186/92 H 09/26/21 07:39 36.5 C 88 15 132/69 96 PG Care Time/CCT Total # of Minutes Spent Total Time Spent with Patient: Total time spent is greater than 50% in coordination of care (as documented) at patient's floor/unit and/or counseling patient: Coding Level of Care Code 29527 Subseq Hosp Care Lvl 2 Diagnoses Suprapubic catheter Z93.59
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
[2021-09-26] MEDS: POLYETHYLENE (MIRALAX) 17 GM PACK PO SCH (21:22)
[2021-09-26] MEDS: ENOXAPARIN INJ 40 MG/0.4 ML SYR SQ SCH (21:22)
[2021-09-26] MEDS: lisinopril 40 MG TAB PO SCH (21:23)
[2021-09-26] MEDS: FAMOTIDINE 40 MG TABLET PO SCH (21:23)
[2021-09-27] MEDS: CEFEPIME 2,000 MG in SYRINGE 0 ML IV SCH ×2 (00:26→12:32)
[2021-09-27] MEDS: INSULIN ASPART PER UNIT SC SCH ×4 (09:09→21:03)
[2021-09-27] MEDS: GLYCERIN ADULT 12 SUPP/BOX SUPP PR SCH (09:10)
[2021-09-27] MEDS: BACLOFEN 10 MG TAB PO SCH ×3 (09:10→20:52)
[2021-09-27] MEDS: DAPTOmycin 525 MG in SYRINGE 0 ML IV SCH (09:10)
[2021-09-27] MEDS: amLODIPine BESYLATE 5 MG TAB PO SCH (09:10)
[2021-09-27] MEDS: hydrALAZINE HCL 25 MG TAB PO SCH ×3 (09:13→20:52)
[2021-09-27] MEDS: MAGNESIUM OXIDE 400 MG TAB PO SCH ×2 (09:13→20:53)
[2021-09-27] MEDS: predniSONE 10 MG TABLET PO SCH (09:13)
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
[2021-09-27] MEDS ORDERED: BETAMETHASONE DIP AUG (DIPROLENE) 0.05% CR 15 GM TUBE EXT PRN (13:29)
--- NOTE | 2021-09-27 13:53 | Pharmacy Report ---
Pharmacy Glycemic Short Note 2 - Date of Service September 27, 2021 - Glycemic Short BSG Results (Last 24 hours): 09/26/21 09/26/21 09/27/21 17:05 20:36 08:11 POC Glucose 160 H 158 H 136 H 09/27/21 12:27 POC Glucose 181 H OUTPATIENT ANTIDIABETIC REGIMEN: * Glipizide ER 10 mg PO AM * Metformin 1000 mg PO BIDM * HbA1c = 7.5% (08/29/21) ASSESSMENT: 09/27/21 * Patient received a total of 44 units of insulin (all bolus). * BSGs yesterday [phone] mg/dL. * Patient to receive prednisone 10 mg today so will continue Novolog as prior. 09/26/21 * Patient received a total of 43 units of insulin (all bolus). * BSGs yesterday [phone] mg/dL. * Patient to receive prednisone 10 mg today so will continue Novolog as prior. Hold NPH. 09/24/21: * Patient received total of 78 units of insulin yesterday, of which 30 units were NPH * Fasting BSG 103 mg/dL - prednisone decreased to 20 mg daily from 30 mg daily, plan to scale back slightly on NPH to 25 units daily * Continue same CF/CR for now 09/22/21: * Blood sugars continue rising throughout the day, tighten CR and CF with meals and increase NPH. * Prednisone continues at 30mg PO daily. * Loosen CF/CR at HS to prevent AM Hypoglycemia 09/21/21: * Blood sugars rising throughout the day the past 2 days, tighten CR and CF at this time. * Fasting blood sugars at goal, no change in basal at this time. * Prednisone decreased to 30mg PO daily starting today. 09/19/21: * Fating BSG of 120 mg/dL this morning is near goal. No indication to add long acting basal insulin at this time. * Anticipate post prandial hyperglycemia with the addition of prednisone 50 mg daily. Will start a conservative dose of once daily NPH and titrate as needed. May need to tighten carb coverage also. Background: * 51 yo M admitted on 09/16/21 secondary to abdominal pain. Patient has not been receiving any antidiabetic medications since admission. 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 * Has been on stress dose steroids since 09/17/21 (Solucortef 100 mg IV Q8H). Changed to Solucortef 50 mg IV Q12h on 09/18/21. Prednisone 50 mg AM will be starting on the morning of 09/19/21. * Diet has been advanced today as NG tube was pulled. Given diet is ordered and Prednisone is being started, will order sliding scale insulin for this evening. * Patient may require NPH dosing with Prednisone starting tomorrow morning. Will leave this decision to floor pharmacist in the morning. PLAN FOR INPATIENT GLYCEMIC CONTROL: * Hold outpatient oral diabetes medications * Basal insulin * Hold NPH * Bolus insulin * NovoLog per scale AC * Goal Range: Low 110 mg/dL - High 140 mg/dL * Correction Factor: 12 mg/dL/unit * Nutritional / Prandial insulin per carb ratio of 1 unit per 4 grams CHO consumed * NovoLog per scale HS * Goal Range: Low 110 mg/dL - High 140 mg/dL * Correction Factor: 25 mg/dL/unit * Nutritional / Prandial insulin per carb ratio of 1 unit per 8 grams CHO consumed
[2021-09-27] MEDS: ENOXAPARIN INJ 40 MG/0.4 ML SYR SQ SCH (20:51)
[2021-09-27] MEDS: FAMOTIDINE 40 MG TABLET PO SCH (20:53)
[2021-09-27] MEDS: POLYETHYLENE (MIRALAX) 17 GM PACK PO SCH ×2 (20:54→20:57)
[2021-09-27] MEDS: lisinopril 40 MG TAB PO SCH (20:54)
[2021-09-27] MEDS ORDERED: CLOBETASOL PROPIONATE 0.05% OINT 15 GM TUBE EXT PRN (21:28)
[2021-09-28] MEDS: CEFEPIME 2,000 MG in SYRINGE 0 ML IV SCH ×3 (01:42→13:03)
[2021-09-28] MEDS: BACLOFEN 10 MG TAB PO SCH ×3 (08:17→20:43)
[2021-09-28] MEDS: hydrALAZINE HCL 25 MG TAB PO SCH ×3 (08:18→20:47)
[2021-09-28] MEDS: predniSONE 10 MG TABLET PO SCH (08:18)
[2021-09-28] MEDS: cloNIDine HCL 0.1 MG TAB PO PRN (08:18)
[2021-09-28] MEDS: amLODIPine BESYLATE 5 MG TAB PO SCH (08:19)
[2021-09-28] MEDS: DAPTOmycin 525 MG in SYRINGE 0 ML IV SCH (08:19)
[2021-09-28] MEDS: MAGNESIUM OXIDE 400 MG TAB PO SCH ×2 (08:19→20:48)
[2021-09-28] MEDS: INSULIN ASPART PER UNIT SC SCH ×4 (09:29→20:42)
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
[2021-09-28] MEDS: POLYETHYLENE (MIRALAX) 17 GM PACK PO SCH (20:42)
[2021-09-28] MEDS: ENOXAPARIN INJ 40 MG/0.4 ML SYR SQ SCH (20:47)
[2021-09-28] MEDS: lisinopril 40 MG TAB PO SCH (20:48)
[2021-09-28] MEDS: FAMOTIDINE 40 MG TABLET PO SCH (20:48)
[2021-09-29] MEDS: CEFEPIME 2,000 MG in SYRINGE 0 ML IV SCH ×2 (01:00→13:02)
[2021-09-29] MEDS: hydrALAZINE HCL 25 MG TAB PO SCH ×3 (08:39→20:02)
[2021-09-29] MEDS: MAGNESIUM OXIDE 400 MG TAB PO SCH ×2 (08:39→20:03)
[2021-09-29] MEDS: GLYCERIN ADULT 12 SUPP/BOX SUPP PR SCH (08:39)
[2021-09-29] MEDS: predniSONE 10 MG TABLET PO SCH (08:39)
[2021-09-29] MEDS: BACLOFEN 10 MG TAB PO SCH ×3 (08:39→20:00)
[2021-09-29] MEDS: amLODIPine BESYLATE 5 MG TAB PO SCH (08:39)
[2021-09-29] MEDS: INSULIN ASPART PER UNIT SC SCH ×4 (08:42→21:17)
--- NOTE | 2021-09-29 08:49 | Pharmacy Report ---
Pharmacy Glycemic Short Note 2 - Date of Service September 29, 2021 - Glycemic Short BSG Results (Last 24 hours): 09/28/21 09/28/21 09/28/21 11:58 16:53 20:28 POC Glucose 211 H 204 H 211 H 09/29/21 08:17 POC Glucose 175 H OUTPATIENT ANTIDIABETIC REGIMEN: * Glipizide ER 10 mg PO AM * Metformin 1000 mg PO BIDM * HbA1c = 7.5% (08/29/21) ASSESSMENT: 09/29/21 * Patient's BSGs yesterday were [phone] mg/dL and fasting today is 175 mg/dL. * Patient received 53 units of insulin (all bolus). * Patient still receiving prednisone 10 mg daily. * BSGs were almost all above 200 mg/dL so resume NPH today. Start with 15 units (0.12 units/kg). * Continue Novolog since NPH started. 09/27/21 * Patient received a total of 44 units of insulin (all bolus). * BSGs yesterday [phone] mg/dL. * Patient to receive prednisone 10 mg today so will continue Novolog as prior. 09/26/21 * Patient received a total of 43 units of insulin (all bolus). * BSGs yesterday [phone] mg/dL. * Patient to receive prednisone 10 mg today so will continue Novolog as prior. Hold NPH. 09/24/21: * Patient received total of 78 units of insulin yesterday, of which 30 units were NPH * Fasting BSG 103 mg/dL - prednisone decreased to 20 mg daily from 30 mg daily, plan to scale back slightly on NPH to 25 units daily * Continue same CF/CR for now 09/22/21: * Blood sugars continue rising throughout the day, tighten CR and CF with meals and increase NPH. * Prednisone continues at 30mg PO daily. * Loosen CF/CR at HS to prevent AM Hypoglycemia 09/21/21: * Blood sugars rising throughout the day the past 2 days, tighten CR and CF at this time. * Fasting blood sugars at goal, no change in basal at this time. * Prednisone decreased to 30mg PO daily starting today. 09/19/21: * Fating BSG of 120 mg/dL this morning is near goal. No indication to add long acting basal insulin at this time. * Anticipate post prandial hyperglycemia with the addition of prednisone 50 mg daily. Will start a conservative dose of once daily NPH and titrate as needed. May need to tighten carb coverage also. Background: * 51 yo M admitted on 09/16/21 secondary to abdominal pain. Patient has not been receiving any antidiabetic medications since admission. 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 * Has been on stress dose steroids since 09/17/21 (Solucortef 100 mg IV Q8H). Changed to Solucortef 50 mg IV Q12h on 09/18/21. Prednisone 50 mg AM will be starting on the morning of 09/19/21. * Diet has been advanced today as NG tube was pulled. Given diet is ordered and Prednisone is being started, will order sliding scale insulin for this evening. * Patient may require NPH dosing with Prednisone starting tomorrow morning. Will leave this decision to floor pharmacist in the morning. PLAN FOR INPATIENT GLYCEMIC CONTROL: * Hold outpatient oral diabetes medications * Basal insulin * NPH 15 units SQ daily with PO prednisone * Bolus insulin * NovoLog per scale AC * Goal Range: Low 110 mg/dL - High 140 mg/dL * Correction Factor: 12 mg/dL/unit * Nutritional / Prandial insulin per carb ratio of 1 unit per 4 grams CHO consumed * NovoLog per scale HS * Goal Range: Low 110 mg/dL - High 140 mg/dL * Correction Factor: 25 mg/dL/unit * Nutritional / Prandial insulin per carb ratio of 1 unit per 8 grams CHO consumed
[2021-09-29] MEDS ORDERED: NovoLIN-N (NPH) PER UNIT CHARGE SQ ONE (09:00)
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
[2021-09-29] MEDS: ATORVASTATIN 20 MG TAB PO SCH (20:00)
[2021-09-29] MEDS: ENOXAPARIN INJ 40 MG/0.4 ML SYR SQ SCH (20:01)
[2021-09-29] MEDS: FAMOTIDINE 40 MG TABLET PO SCH (20:02)
[2021-09-29] MEDS: lisinopril 40 MG TAB PO SCH (20:03)
[2021-09-29] MEDS: POLYETHYLENE (MIRALAX) 17 GM PACK PO SCH (20:03)
[2021-09-30] MEDS: CEFEPIME 2,000 MG in SYRINGE 0 ML IV SCH ×2 (00:15→12:51)
[2021-09-30 06:41] LABS: Basophils # (auto) 0.02 K/uL (0-0.2); Basophils % (auto) 0.2 %; Eosinophils # (auto) 0.32 K/uL (0-0.5); Eosinophils % (auto) 3.9 %; Hematocrit (blood only) 38.6 % (42-52); Hemoglobin 12.4 g/dL (14.0-18.0); Immature Granulocytes # (auto) 0.02 K/uL (0.00-0.02); Immature Granulocytes % (auto) 0.2 %; Lymphocytes # (auto) 1.58 K/uL (1.2-3.4); Lymphocytes % (auto) 19.4 %; Mean Corpuscular Hemoglobin 28.6 pg (25-34); Mean Corpuscular Hgb Conc 32.1 g/dL (32-36); Mean Corpuscular Volume 88.9 fL (80-100); Mean Platelet Volume 10.6 fL (7.4-10.4); Monocytes % (auto) 8.6 %; Neutrophils # (auto) 5.49 K/uL (1.4-6.5); Neutrophils % (auto) 67.7 %; Platelet Count 323 K/uL (130-400); RDW Coefficient of Variation 16.8 % (11.5-14.5); RDW Standard Deviation 54.8 fL (36.4-46.3); Red Blood Count 4.34 M/uL (4.7-6.1); White Blood Count 8.13 K/uL (4.8-10.8)
[2021-09-30 07:11] LABS: Anion Gap 9 (3-11); BUN Creatinine Ratio 36.8 (10-20); Blood Urea Nitrogen 14 mg/dl (6-23); Carbon Dioxide 25 mmol/L (21-32); Chloride 103 mmol/L (98-107); Creatinine Clr Calc Pharmacy 289.3 ml/min; Est GFR (African American) > 150.0 ml/min; Est GFR (Non-African American) 140.5 ml/min; Glucose 144 mg/dl (70-99(Fasting)); Sodium 137 mmol/L (136-145)
[2021-09-30] MEDS: predniSONE 10 MG TABLET PO SCH (08:18)
[2021-09-30] MEDS: amLODIPine BESYLATE 5 MG TAB PO SCH (08:18)
[2021-09-30] MEDS: hydrALAZINE HCL 25 MG TAB PO SCH ×3 (08:19→21:17)
[2021-09-30] MEDS: BACLOFEN 10 MG TAB PO SCH ×3 (08:19→21:19)
[2021-09-30] MEDS: MAGNESIUM OXIDE 400 MG TAB PO SCH ×2 (08:19→21:18)
[2021-09-30] MEDS: INSULIN ASPART PER UNIT SC SCH ×4 (08:26→21:11)
[2021-09-30] MEDS ORDERED: NovoLIN-N (NPH) PER UNIT CHARGE SQ ONE (09:00)
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
[2021-09-30] MEDS: FAMOTIDINE 40 MG TABLET PO SCH (21:16)
[2021-09-30] MEDS: ENOXAPARIN INJ 40 MG/0.4 ML SYR SQ SCH (21:16)
[2021-09-30] MEDS: ATORVASTATIN 20 MG TAB PO SCH (21:17)
[2021-09-30] MEDS: POLYETHYLENE (MIRALAX) 17 GM PACK PO SCH (21:18)
[2021-09-30] MEDS: lisinopril 40 MG TAB PO SCH (21:18)
[2021-10-01] MEDS: CEFEPIME 2,000 MG in SYRINGE 0 ML IV SCH ×2 (00:14→01:18)
[2021-10-01] MEDS: GLYCERIN ADULT 12 SUPP/BOX SUPP PR SCH (08:00)
[2021-10-01] MEDS: hydrALAZINE HCL 25 MG TAB PO SCH ×2 (08:00→13:16)
[2021-10-01] MEDS ORDERED: NovoLIN-N (NPH) PER UNIT CHARGE SQ ONE (09:00)
[2021-10-01] MEDS: BACLOFEN 10 MG TAB PO SCH ×2 (09:27→13:16)
[2021-10-01] MEDS: predniSONE 10 MG TABLET PO SCH (09:28)
[2021-10-01] MEDS: MAGNESIUM OXIDE 400 MG TAB PO SCH (09:28)
[2021-10-01] MEDS: amLODIPine BESYLATE 5 MG TAB PO SCH (09:28)
[2021-10-01] MEDS: INSULIN ASPART PER UNIT SC SCH ×2 (09:38→13:03)
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
== END 2021-10-01 18:04 | disposition home health service (06) | DRG 388 ==
LOC: ED 09:26 → SUATTDRO 18:28 → 3N 18:28
DX: Y92.009 Unspecified place in unspecified non-institutional (private) residence as the place of occurrence of the external cause; E78.5 Hyperlipidemia, unspecified; N31.9 Neuromuscular dysfunction of bladder, unspecified; F19.20 Other psychoactive substance dependence, uncomplicated; E66.01 Morbid (severe) obesity due to excess calories; Z87.891 Personal history of nicotine dependence; Z87.440 Personal history of urinary (tract) infections; D84.9 Immunodeficiency, unspecified; L89.892 Pressure ulcer of other site, stage 2; G82.50 Quadriplegia, unspecified; I10 Essential (primary) hypertension; Z16.35 Resistance to multiple antimicrobial drugs; Z79.84 Long term (current) use of oral hypoglycemic drugs; K56.699 Other intestinal obstruction unspecified as to partial versus complete obstruction; Z79.52 Long term (current) use of systemic steroids; L12.8 Other pemphigoid; Z68.41 Body mass index [BMI] 40.0-44.9, adult; N39.0 Urinary tract infection, site not specified; K63.89 Other specified diseases of intestine; E87.6 Hypokalemia; L89.153 Pressure ulcer of sacral region, stage 3; Z88.2 Allergy status to sulfonamides; K56.41 Fecal impaction; T83.518A Infection and inflammatory reaction due to other urinary catheter, initial encounter; B96.5 Pseudomonas (aeruginosa) (mallei) (pseudomallei) as the cause of diseases classified elsewhere; B95.62 Methicillin resistant Staphylococcus aureus infection as the cause of diseases classified elsewhere; E83.42 Hypomagnesemia; Z88.1 Allergy status to other antibiotic agents

== ENCOUNTER 2022-02-09 14:58 | Inpatient (IN) ==
[2022-02-09] MEDS ORDERED: SODIUM CHLORIDE 0.9% 500 ML IV STA (15:07)
[2022-02-09] MEDS ORDERED: CEFEPIME 2,000 MG/20 ML VIAL IV STA (15:11)
--- NOTE | 2022-02-09 15:15 | Emergency Department Note ---
History of Present Illness General Chief complaint: Urinary Symptoms Time Seen by Provider: 02/09/22 15:00 History of Present Illness 52-year-old male presents to the ED with a chief complaint of some abdominal bl oating and bladder spasms. He has an indwelling suprapubic catheter. He states that his last urinary tract infection was in August. He states that he had similar symptoms when he had that UTI. He states that he had to be admitted for IV antibiotics. The patient states that he had 2 bowel movements yesterday. Denies any other complaints at this time. No fevers. No vomiting. Nothing helps. Home Medications Medication Instructions Recorded Confirmed Type amlodipine 10 mg tablet 10 mg PO QAM 05/11/18 09/16/21 History baclofen 10 mg tablet 25 mg PO TID 05/11/18 09/16/21 History folic acid 1 mg tablet 1 mg PO [id number] 05/11/18 09/16/21 History metformin 500 mg tablet,extended 1,000 mg PO AMPM 05/11/18 09/16/21 History release 24 hr methotrexate sodium 2.5 mg tablet 15 mg PO WK 05/11/18 09/16/21 History oxybutynin chloride 5 mg tablet 5 mg PO TID 05/11/18 09/16/21 History famotidine 40 mg tablet 40 mg PO HS 03/30/20 09/16/21 History methenamine hippurate 1 gram tablet 1 g PO BID 11/05/20 09/16/21 History prednisone 5 mg tablet 10 mg PO QAM 04/27/21 09/16/21 History atorvastatin 20 mg tablet 20 mg PO HS 08/27/21 09/16/21 History glipizide 10 mg tablet, extended 10 mg PO QAM 08/27/21 09/16/21 History release 24 hr clobetasol 0.05 % topical cream 1 applic topical BID PRN . 09/16/21 09/16/21 History lisinopril 40 mg tablet 40 mg PO HS 09/16/21 09/16/21 History hydralazine 25 mg tablet 25 mg PO TID #90 tabs 10/01/21 Rx magnesium oxide 400 mg (241.3 mg 400 mg PO BID #60 tabs 10/01/21 Rx magnesium) tablet polyethylene glycol 3350 17 gram 17 g PO HS #30 ea 10/01/21 Rx oral powder packet (Miralax) Allergies Allergy/AdvReac Type Severity Reaction Status Date / Time Sulfa (Sulfonamide Allergy Severe Swelling Verified 09/16/21 13:49 Antibiotics) of Lip/Tongue/Throat piperacillin [From Zosyn] Allergy Intermediate Rash Verified 09/16/21 13:49 tazobactam [From Zosyn] Allergy Intermediate Rash Verified 09/16/21 13:49 Past Med/Surg History Medical History Acute hyponatremia Acute UTI Acute UTI Bladder stone Diabetes Diarrhea Headache HLD (hyperlipidemia) HTN (hypertension) Hypertension Hyponatremia Ileus Lactic acidosis Nephrolithiasis Neurogenic bladder Osteomyelitis Pemphigoid Pemphigus foliaceus Sacral wound Suprapubic catheter UTI (urinary tract infection) due to urinary indwelling catheter Surgical History History of hip surgery History of suprapubic catheter Previous back surgery Family History Mother Cancer Father Diabetes Grandfather Diabetes Social History Smoking Status: Never smoker Second Hand Exposure: No; Hx Alcohol Use: No Hx Substance Use: No Preferred Language: Japanese Communication Ability: Effective Visual Impairment: No Limitations Hearing Ability: Normal Occupational Therapy Instructor Required: No Beliefs That Will Affect Care: None marital status: Single Current Living Situation: Alone Current Living Situation Comment: Typically lives alone with daily care provider, nain Barker Feels Safe at Home: Yes during the past year weight has: decreased > 10 lbs Assistive Devices: Mechanical Lift Review of Systems A total of 10 systems reviewed and were otherwise negative Physical Exam Vital Signs Vital Signs - 24 hr 02/09/22 15:10 02/09/22 15:15 02/09/22 16:01 Temperature 36.9 C Temperature Source Oral Pulse Rate 99 H 74 Respiratory Rate 19 16 Respiratory Effort / Characteristics Non-Labored Spontaneous Respiratory Depth Normal Respiratory Pattern Regular Blood Pressure 166/96 H 107/60 Blood Pressure Mean 119 75 Pulse Oximetry 97 97 96 Oxygen Delivery Method Room Air Room Air Sepsis Recent Fever Within 48 Hours No Sepsis New/Unexplained Change in Mental Status N/A Sepsis Action Taken by Nursing No Action Required 02/09/22 16:30 Temperature Temperature Source Pulse Rate 63 Respiratory Rate 14 Respiratory Effort / Characteristics Respiratory Depth Respiratory Pattern Blood Pressure 103/61 Blood Pressure Mean 75 Pulse Oximetry 97 Oxygen Delivery Method Sepsis Recent Fever Within 48 Hours Sepsis New/Unexplained Change in Mental Status Sepsis Action Taken by Nursing CONSTITUTIONAL/VITAL SIGNS: Reviewed / noted above. GENERAL: Non-toxic in appearance. No distress. INTEGUMENTARY: Warm, dry, and [place]. HEAD: Normocephalic. EYES: without scleral icterus or trauma. ENT/OROPHARYNX: clear and moist. LYMPHADENOPATHY/NECK: Is supple without lymphadenopathy or meningismus. RESPIRATORY: Clear to auscultation bilaterally. No increased work of breathing. CARDIOVASCULAR: Regular rate and rhythm. GI/ABDOMEN: Distended and tympanitic. Suprapubic catheter. EXTREMITIES: Warm and well perfused. BACK: No CVA tenderness. NEUROLOGICAL: Chronic quadriplegia. Awake alert and oriented. PSYCHIATRIC: normal affect. MUSCULOSKELETAL: Normally developed with good muscle tone. TRIAGE NURSING DOCUMENTATION REVIEWED. Course Administered Medications Discontinued Medications Sodium Chloride (Nss) 500 mls @ 999 mls/hr IV .Q31M STA Stop: 02/09/22 15:37 Last Infusion: 02/09/22 16:24 Dose: 0 mls/hr Documented By: Admin: 02/09/22 15:25 Dose: 999 mls/hr Documented By: MARV Cefepime HCl (Maxipime) 2,000 mg in 20 mls @ 5 mls/min IV NOW STA; Protocol Stop: 02/09/22 15:14 Last Admin: 02/09/22 15:25 Dose: 5 mls/min Documented By: MARV Medical Decision Making Differential Diagnosis Differential considered: pancreatitis, hepatitis, acute cholecystitis, AAA, UTI, pyelonephritis, kidney stones, appendicitis, diverticulitis, shingles, bowel obstruction, mesenteric ischemia, intussusception,hernia, testicular torsion Medical Records Attestation: I reviewed the patient's medical records. Home Medications Current Medication List: was personally reviewed by me Laboratory Data Attestation: I reviewed the patient's lab results. Result diagrams: 02/09/22 15:09 02/09/22 15:09 Lab Results 02/09/22 02/09/22 02/09/22 Range/Units 15:09 15:09 Unknown WBC 10.19 (4.8-10.8) K/ul RBC 4.33 L (4.63-6.08) M/uL Hgb 12.0 L (14.0-18.0) g/dl Hct 36.4 L (40.1-51.0) % MCV 84.1 (80.0-100.0) fL MCH 27.7 (25.0-34.0) pg MCHC 33.0 (32.0-36.0) g/dL RDW Std Deviation 50.2 H (36.4-46.3) fL RDW Coeff of Sandor 16.5 H (11.5-14.5) % Plt Count 314 (130-400) K/uL MPV 10.6 (9.4-12.4) fL Immature Gran % (Auto) 0.5 % Neut % (Auto) 79.9 % Lymph % (Auto) 11.1 % [place] % (Auto) 6.5 % Eos % (Auto) 1.6 % Baso % (Auto) 0.4 % Neut # (Auto) 8.15 H (1.4-6.5) K/uL Lymph # (Auto) 1.13 L (1.2-3.4) K/uL Motley # (Auto) 0.66 (0.24-0.82) K/uL Eos # (Auto) 0.16 (0-0.50) K/uL Baso # (Auto) 0.04 (0-0.2) K/uL Immature Gran # (Auto) 0.05 H (0.00-0.02) K/uL Sodium 132 L (136-145) mmol/L Potassium 4.2 (3.5-5.1) mmol/L Chloride 99 (98-107) mmol/L Carbon Dioxide 22 (21-32) mmol/L Anion Gap 11 (3-11) BUN 7 (6-23) mg/dl Creatinine 0.44 L (0.6-1.4) mg/dl Est Cr Clr Drug Dosing 256.9 ml/min Est GFR ( Amer) > 150.0 ml/min Est GFR (Non-Af Amer) 131.3 ml/min BUN/Creatinine Ratio 15.9 (10-20) Glucose 113 H (70-99(Fasting)) mg/dl Calcium 9.1 (8.5-10.1) mg/dl Total Bilirubin 0.8 (0.2-1.0) mg/dl AST 11 L (13-39) U/L ALT 15 (7-52) U/L Alkaline Phosphatase 76 (34-104) U/L Total Protein 6.8 (6.0-8.3) gm/dl Albumin 4.0 (3.4-5.0) gm/dl Globulin 2.8 (2.5-4.0) gm/dl Albumin/Globulin Ratio 1.4 (0.9-2) Lipase 23 (11-82) U/L Urine Color Yellow Urine Appearance Clear (Clear) Urine pH 6.5 (4.5-7.5) Ur Specific [place] 1.005 (1.000-1.030) Urine Protein Negative (Negative) Urine Glucose (UA) Negative (Negative) Urine Ketones Negative (Negative) Urine Blood Negative (Negative) Urine Nitrite Positive A (Negative) Urine Bilirubin Negative (Negative) Urine Urobilinogen Negative (Negative) Ur Leukocyte Esterase 2+ H (Negative) Urine WBC (Auto) 5-10 H (0-5) /hpf Urine RBC (Auto) 0-4 (0-4) /hpf U Hyaline Cast (Auto) 1-5 (0-5) /lpf U Epithel Cells (Auto) 10-20 H (0-5) /lpf Urine Bacteria (Auto) 2+ H (Negative) Imaging Data Radiologist's Impression: Abdomen/Pelvis CT 02/09/22 15:07 CT abd pelvis wo con CLINICAL HISTORY: abd bloating COMPARISON STUDY: 09/16/2021 CT DOSE: 1842.75 mGy.cm TECHNIQUE: Standard CT of the Abdomen and Pelvis was performed without IV contrast. The patient did not receive oral contrast. A dose lowering technique was utilized adhering to the principles of ALARA. FINDINGS: Lung base: The lung bases are clear. Abdominal cavity: There is no evidence for abdominal mass, adenopathy or ascites. There is diffuse prominence of the subcutaneous and intravenous peritoneal fat related to the patient's body habitus. Liver: There is again hepatomegaly with diffuse fatty infiltration of the liver .. Spleen: The spleen is homogeneous in attenuation on these limited noncontrast images. Pancreas: The pancreas is homogeneous in attenuation on these limited noncontrast images. Gall Bladder: The gallbladder is well distended with no evidence for cholelithiasis, wall thickening or pericholecystic edema.. Adrenal glands: The adrenal glands are normal in size and attenuation on these limited noncontrast images. Kidneys: The kidneys are homogeneous in attenuation on these limited noncontrast images. 3, 2 to 3 mm right renal calculi are present with no evidence for hydronephrosis. No left renal calculi or gross renal mass is identified. Bowel: The bowel loops are normally placed within the abdomen and pelvis without evidence for dilatation or obstruction. There is no evidence for mass lesion. There is only mild fecal stasis of the rectosigmoid colon on the current study with no evidence for gaseous distention of the colon. There are no inflammatory changes present. There is no evidence for free air. Bladder: Molina catheter is present within the bladder. : There is no evidence for pelvic mass or adenopathy. Vasculature: There is no evidence for focal aneurysmal dilatation of the abdominal aorta. Osseous structures: There is no acute osseous pathology. IMPRESSION: 1. No acute intra-abdominal or pelvic abnormality on these limited noncontrast images. 2. Only mild fecal stasis of the rectosigmoid colon is present on the current study with no gaseous distention of the colon identified. 3. Nonobstructing right renal calculi are again. 4. Additional nonacute findings are delineated above. ACT 112: Negative or not required by law. Electronically signed by: Anam Goddard M.D. 02/09/2022 4:09 PM MDM Narrative 52-year-old male presents with a chief complaint of abdominal bloating, distention and concerns about a urinary tract infection. Exam reveals abdominal distention and tympanitic abdomen. Suprapubic catheter is in place. CT scan of the abdomen pelvis did not show any evidence of acute intra-abdominal pathology or bowel obstruction. Urine is concerning for infection. CBC and chemistry panel was unremarkable. Because the patient typically has cultures that are resistant to oral antibiotic, the patient will be seen by the hospitalist for further evaluation and care. He was treated with IV antibiotics in the form of cefepime here. He was also given IV fluids. Impression & Plan UTI (urinary tract infection) Discharge Plan Visit Data Chief Complaint: Urinary Symptoms ED Provider: Jonathan Leary Discharge Problem: UTI (urinary tract infection) Patient Disposition: Being Evaluated by Hospitalist Forms Stand Alone Forms: My [facility] Prescriptions Prescriptions: No Action amlodipine 10 mg tablet 10 mg PO QAM methotrexate sodium 2.5 mg tablet 15 mg PO WK Rx Instructions: TAKE SIX TABS (15MG) WEEKLY EVERY THURSDAY. oxybutynin chloride 5 mg tablet 5 mg PO TID metformin 500 mg tablet extended release 24 hr 1,000 mg PO AMPM baclofen 10 mg tablet 25 mg PO TID Rx Instructions: TAKE 2 & 1/2 TABS THREE TIMES DAILY folic acid 1 mg tablet 1 mg PO [id number] Rx Instructions: EVERY DAY EXCEPT FRIDAYS. famotidine 40 mg tablet 40 mg PO HS prednisone 5 mg tablet 10 mg PO QAM glipizide 10 mg tablet extended release 24hr 10 mg PO QAM atorvastatin 20 mg tablet 20 mg PO HS clobetasol 0.05 % cream 1 applic TOPICAL BID PRN (Reason: .) lisinopril 40 mg tablet 40 mg PO HS polyethylene glycol 3350 [Miralax] 17 gram Powder In Packet 17 g PO HS Qty: 30 0RF magnesium oxide 400 mg (241.3 mg magnesium) Tablet 400 mg PO BID Qty: 60 0RF hydralazine 25 mg tablet 25 mg PO TID Qty: 90 0RF methenamine hippurate 1 gram Tablet 1 g PO BID Referrals Referrals: Loi Dupree MD [Outside Practitioners] -
[2022-02-09 15:23] LABS: Basophils # (auto) 0.04 K/uL (0-0.2); Basophils % (auto) 0.4 %; Eosinophils # (auto) 0.16 K/uL (0-0.50); Eosinophils % (auto) 1.6 %; Hematocrit (blood only) 36.4 % (40.1-51.0); Immature Granulocytes # (auto) 0.05 K/uL (0.00-0.02); Immature Granulocytes % (auto) 0.5 %; Lymphocytes # (auto) 1.13 K/uL (1.2-3.4); Lymphocytes % (auto) 11.1 %; Mean Corpuscular Hemoglobin 27.7 pg (25.0-34.0); Mean Corpuscular Volume 84.1 fL (80.0-100.0); Mean Platelet Volume 10.6 fL (9.4-12.4); Monocytes # (auto) 0.66 K/uL (0.24-0.82); Monocytes % (auto) 6.5 %; Neutrophils # (auto) 8.15 K/uL (1.4-6.5); Neutrophils % (auto) 79.9 %; Platelet Count 314 K/uL (130-400); RDW Coefficient of Variation 16.5 % (11.5-14.5); RDW Standard Deviation 50.2 fL (36.4-46.3); Red Blood Count 4.33 M/uL (4.63-6.08); White Blood Count 10.19 K/ul (4.8-10.8)
[2022-02-09 15:39] LABS: Appearance Urine Clear (Clear); Bacteria Urine Automated 2+ (Negative); Bilirubin Urine Negative (Negative); Blood Urine Negative (Negative); Color Urine Yellow; Glucose Urine UA Negative (Negative); Ketones Urine Negative (Negative); Leukocyte Esterase Urine 2+ (Negative); Nitrite Urine Positive (Negative); Protein Urine Negative (Negative); RBC Urine Automated 0-4 /hpf (0-4); Specific Gravity Urine 1.005 (1.000-1.030); Urobilinogen Urine Negative (Negative); pH Urine 6.5 (4.5-7.5)
[2022-02-09 15:43] LABS: Alanine Aminotransferase 15 U/L (7-52); Albumin Globulin Ratio 1.4 (0.9-2); Alkaline Phosphatase 76 U/L (34-104); Anion Gap 11 (3-11); Aspartate Aminotransferase 11 U/L (13-39); BUN Creatinine Ratio 15.9 (10-20); Bilirubin,Total 0.8 mg/dl (0.2-1.0); Blood Urea Nitrogen 7 mg/dl (6-23); Calcium 9.1 mg/dl (8.5-10.1); Carbon Dioxide 22 mmol/L (21-32); Chloride 99 mmol/L (98-107); Creatinine Clr Calc Pharmacy 256.9 ml/min; Est GFR (African American) > 150.0 ml/min; Est GFR (Non-African American) 131.3 ml/min; Globulin 2.8 gm/dl (2.5-4.0); Glucose 113 mg/dl (70-99(Fasting)); Lipase 23 U/L (11-82); Potassium 4.2 mmol/L (3.5-5.1); Sodium 132 mmol/L (136-145); Total Protein 6.8 gm/dl (6.0-8.3)
--- NOTE | 2022-02-09 16:11 | CT Scan Report ---
CT abd pelvis wo con CLINICAL HISTORY: abd bloating COMPARISON STUDY: 09/16/2021 CT DOSE: 1842.75 mGy.cm TECHNIQUE: Standard CT of the Abdomen and Pelvis was performed without IV contrast. The patient did not receive oral contrast. A dose lowering technique was utilized adhering to the principles of ROBERT Escobar. FINDINGS: Lung base: The lung bases are clear. Abdominal cavity: There is no evidence for abdominal mass, adenopathy or ascites. There is diffuse pr ominence of the subcutaneous and intravenous peritoneal fat related to the patient's body habitus. Liver: There is again hepatomegaly with diffuse fatty infiltration of the liver.. Spleen: The spleen is homogeneous in attenuation on these limited noncontrast images. Pancreas: The pancreas is homogeneous in attenuation on these limited noncontrast images. Gall Bladder: The gallbladder is well distended with no evidence for cholelithiasis, wall thickening or pericholecystic edema.. Adrenal glands: The adrenal glands are normal in size and attenuation on these limited noncontrast im ages. Kidneys: The kidneys are homogeneous in attenuation on these limited noncontrast images. 3, 2 to 3 mm right renal calculi are present with no evidence for hydronephrosis. No left renal calculi or gross renal mass is identified. Bowel: The bowel loops are normally placed within the abdomen and pelvis without evidence for dilatat ion or obstruction. There is no evidence for mass lesion. There is only mild fecal stasis of the rect osigmoid colon on the current study with no evidence for gaseous distention of the colon. There are n o inflammatory changes present. There is no evidence for free air. Bladder: Molina catheter is present within the bladder. : There is no evidence for pelvic mass or adenopathy. Vasculature: There is no evidence for focal aneurysmal dilatation of the abdominal aorta. Osseous structures: There is no acute osseous pathology. IMPRESSION: 1. No acute intra-abdominal or pelvic abnormality on these limited noncontrast images. 2. Only mild fecal stasis of the rectosigmoid colon is present on the current study with no gaseous d istention of the colon identified. 3. Nonobstructing right renal calculi are again. 4. Additional nonacute findings are delineated above. ACT 112: Negative or not required by law. Electronically signed by: Anam Goddard M.D. 02/09/2022 4:09 PM
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
[2022-02-09] MEDS ORDERED: BACLOFEN 10 MG TAB PO ONE (18:45)
[2022-02-09] MEDS ORDERED: GLUCOSE 40% GEL 15 GM TUBE PO PRN (20:23)
[2022-02-09] MEDS ORDERED: GLUCAGON FOR INJ 1 MG VIAL SQ PRN (20:23)
[2022-02-09] MEDS ORDERED: DOCUSATE SODIUM/SENNA 50/8.6MG TAB PO PRN (20:23)
[2022-02-09] MEDS ORDERED: GLUCOSE 10 TAB/TUBE PO PRN (20:23)
[2022-02-09] MEDS ORDERED: POLYETHYLENE (MIRALAX) 17 GM PACK PO PRN (20:23)
[2022-02-09] MEDS ORDERED: CARBOHYDRATES FOR HYPOGLYCEMIA PO PRN (20:23)
[2022-02-09] MEDS ORDERED: ACETAMINOPHEN 325 MG TAB PO PRN (20:23)
[2022-02-09] MEDS ORDERED: ONDANSETRON INJ 2 MG/ML 2 ML VIAL IV PRN (20:23)
[2022-02-09] MEDS ORDERED: DEXTROSE 50% 50 ML SYRINGE IV PRN (20:23)
[2022-02-09] MEDS ORDERED: ATORVASTATIN 20 MG TAB PO SCH (21:00)
[2022-02-09] MEDS: ENOXAPARIN INJ 40 MG/0.4 ML SYR SQ SCH (21:46)
[2022-02-09] MEDS: OXYBUTYNIN CHLORIDE 5 MG TAB PO SCH (21:47)
[2022-02-09] MEDS: FOLIC ACID 1 MG TAB PO SCH (21:47)
[2022-02-09] MEDS: lisinopril 40 MG TAB PO SCH (21:48)
[2022-02-09] MEDS: hydrALAZINE HCL 25 MG TAB PO SCH (21:48)
[2022-02-09] MEDS: FAMOTIDINE 40 MG TABLET PO SCH (21:48)
[2022-02-09] MEDS: BACLOFEN 10 MG TAB PO SCH (21:49)
[2022-02-09] MEDS: INSULIN ASPART PER UNIT SC SCH (21:56)
[2022-02-09] MEDS: DAPTOmycin 375 MG in SYRINGE 0 ML IV SCH (22:36)
[2022-02-10] MEDS: CEFEPIME 2,000 MG in SYRINGE 0 ML IV SCH ×2 (04:40→16:15)
[2022-02-10] MEDS: BACLOFEN 10 MG TAB PO SCH ×3 (07:45→21:25)
[2022-02-10] MEDS: amLODIPine BESYLATE 5 MG TAB PO SCH (07:46)
[2022-02-10] MEDS: predniSONE 10 MG TABLET PO SCH (07:46)
[2022-02-10] MEDS: OXYBUTYNIN CHLORIDE 5 MG TAB PO SCH ×3 (07:46→21:27)
[2022-02-10] MEDS: hydrALAZINE HCL 25 MG TAB PO SCH ×3 (07:47→21:29)
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
[2022-02-10 08:39] LABS: Basophils # (auto) 0.04 K/uL (0-0.2); Basophils % (auto) 0.5 %; Eosinophils # (auto) 0.42 K/uL (0-0.50); Eosinophils % (auto) 5.5 %; Hematocrit (blood only) 35.9 % (40.1-51.0); Hemoglobin 11.7 g/dl (14.0-18.0); Immature Granulocytes # (auto) 0.02 K/uL (0.00-0.02); Immature Granulocytes % (auto) 0.3 %; Lymphocytes # (auto) 1.02 K/uL (1.2-3.4); Lymphocytes % (auto) 13.4 %; Mean Corpuscular Hemoglobin 27.2 pg (25.0-34.0); Mean Corpuscular Hgb Conc 32.6 g/dL (32.0-36.0); Mean Corpuscular Volume 83.5 fL (80.0-100.0); Mean Platelet Volume 10.6 fL (9.4-12.4); Monocytes # (auto) 0.65 K/uL (0.24-0.82); Monocytes % (auto) 8.5 %; Neutrophils # (auto) 5.49 K/uL (1.4-6.5); Neutrophils % (auto) 71.8 %; Platelet Count 289 K/uL (130-400); RDW Coefficient of Variation 16.5 % (11.5-14.5); RDW Standard Deviation 49.8 fL (36.4-46.3); White Blood Count 7.64 K/ul (4.8-10.8)
[2022-02-10] MEDS: INSULIN ASPART PER UNIT SC SCH ×4 (08:52→22:25)
[2022-02-10 09:00] LABS: Anion Gap 9 (3-11); BUN Creatinine Ratio 15.9 (10-20); Blood Urea Nitrogen 7 mg/dl (6-23); Calcium 8.7 mg/dl (8.5-10.1); Carbon Dioxide 24 mmol/L (21-32); Chloride 100 mmol/L (98-107); Creatinine Clr Calc Pharmacy 256.6 ml/min; Est GFR (African American) > 150.0 ml/min; Est GFR (Non-African American) 131.3 ml/min; Glucose 146 mg/dl (70-99(Fasting)); Magnesium 1.7 mg/dl (1.7-2.4); Potassium 3.8 mmol/L (3.5-5.1); Sodium 133 mmol/L (136-145)
[2022-02-10] MEDS ORDERED: bisacodyL 10 MG SUPP PR SCH (09:00)
[2022-02-10] MEDS: ENOXAPARIN INJ 40 MG/0.4 ML SYR SQ SCH (21:26)
[2022-02-10] MEDS: FOLIC ACID 1 MG TAB PO SCH (21:29)
[2022-02-10] MEDS: lisinopril 40 MG TAB PO SCH (21:30)
[2022-02-10] MEDS: FAMOTIDINE 40 MG TABLET PO SCH (21:31)
[2022-02-10] MEDS: DAPTOmycin 375 MG in SYRINGE 0 ML IV SCH (21:45)
[2022-02-11] MEDS: CEFEPIME 2,000 MG in SYRINGE 0 ML IV SCH (04:54)
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
[2022-02-11] MEDS: bisacodyL 10 MG SUPP PR SCH (08:14)
[2022-02-11] MEDS: OXYBUTYNIN CHLORIDE 5 MG TAB PO SCH ×3 (08:15→21:00)
[2022-02-11] MEDS: predniSONE 10 MG TABLET PO SCH (08:15)
[2022-02-11] MEDS: BACLOFEN 10 MG TAB PO SCH ×3 (08:16→21:10)
[2022-02-11] MEDS: hydrALAZINE HCL 25 MG TAB PO SCH ×3 (08:16→21:00)
[2022-02-11] MEDS: amLODIPine BESYLATE 5 MG TAB PO SCH (08:17)
[2022-02-11 08:49] LABS: Basophils # (auto) 0.04 K/uL (0-0.2); Basophils % (auto) 0.5 %; Eosinophils # (auto) 0.52 K/uL (0-0.50); Eosinophils % (auto) 6.2 %; Hematocrit (blood only) 38.3 % (40.1-51.0); Hemoglobin 12.2 g/dl (14.0-18.0); Immature Granulocytes # (auto) 0.02 K/uL (0.00-0.02); Immature Granulocytes % (auto) 0.2 %; Lymphocytes # (auto) 1.13 K/uL (1.2-3.4); Lymphocytes % (auto) 13.5 %; Mean Corpuscular Hemoglobin 26.9 pg (25.0-34.0); Mean Corpuscular Hgb Conc 31.9 g/dL (32.0-36.0); Mean Corpuscular Volume 84.4 fL (80.0-100.0); Mean Platelet Volume 10.7 fL (9.4-12.4); Monocytes # (auto) 0.82 K/uL (0.24-0.82); Monocytes % (auto) 9.8 %; Neutrophils # (auto) 5.81 K/uL (1.4-6.5); Neutrophils % (auto) 69.8 %; Platelet Count 317 K/uL (130-400); RDW Coefficient of Variation 16.6 % (11.5-14.5); RDW Standard Deviation 50.8 fL (36.4-46.3); Red Blood Count 4.54 M/uL (4.63-6.08); White Blood Count 8.34 K/ul (4.8-10.8)
[2022-02-11 09:13] LABS: Anion Gap 8 (3-11); BUN Creatinine Ratio 25.6 (10-20); Blood Urea Nitrogen 11 mg/dl (6-23); Calcium 9.3 mg/dl (8.5-10.1); Carbon Dioxide 25 mmol/L (21-32); Chloride 103 mmol/L (98-107); Creatinine Clr Calc Pharmacy 262.5 ml/min; Est GFR (African American) > 150.0 ml/min; Est GFR (Non-African American) 132.6 ml/min; Glucose 171 mg/dl (70-99(Fasting)); Magnesium 1.8 mg/dl (1.7-2.4); Potassium 3.7 mmol/L (3.5-5.1); Sodium 136 mmol/L (136-145)
[2022-02-11] MEDS: INSULIN ASPART PER UNIT SC SCH ×4 (09:14→21:09)
[2022-02-11] MEDS: MEROPENEM 500 MG in SYRINGE 0 ML IV SCH ×3 (10:31→21:09)
--- NOTE | 2022-02-11 12:46 | Podiatry Consultation ---
Date of Consultation February 11, 2022 Assessment & Plan (1) Quadriplegia: (2) Tinea unguium: Toenails of digits 1-5 of both feet evaluated, debrided using nail nippers to tolerance there was no bleeding or infection noted, patient gave verbal consent for debridement, recommend for patient to follow up outpatient as this is a procedure that should be performed on the outpatient setting, patient did discuss with my his limitations for travel to appointments however, but I still feel he would benefit from continued outpatient care. (3) Diabetes: History of Present Illness Requesting Physician: Patient is a very pleasant 52-year-old male with a history of diabetes seen today at bedside today for care for toenails. Patient is a quadrapelgic he has no use of his legs he notes that he has never seen a stone gluer in the past he notes that he has a skin condition as well feeling his skin extremely dry. He has no history of open wounds or lesions. Attending Physician: Jonatan Mccurdy Allergies Allergy/AdvReac Type Severity Reaction Status Date / Time Sulfa (Sulfonamide Allergy Severe Swelling Verified 09/16/21 13:49 Antibiotics) of Lip/Tongue/Throat piperacillin [From Zosyn] Allergy Intermediate Rash Verified 09/16/21 13:49 tazobactam [From Zosyn] Allergy Intermediate Rash Verified 09/16/21 13:49 Home Medications Medication Instructions Recorded Confirmed Type amlodipine 10 mg tablet 10 mg PO QAM 05/11/18 02/09/22 History baclofen 10 mg tablet 25 mg PO TID 05/11/18 02/09/22 History folic acid 1 mg tablet 1 mg PO [id number] 05/11/18 02/09/22 History metformin 500 mg tablet,extended 1,000 mg PO AMPM 05/11/18 02/09/22 History release 24 hr methotrexate sodium 2.5 mg tablet 15 mg PO WK 05/11/18 02/09/22 History oxybutynin chloride 5 mg tablet 5 mg PO TID 05/11/18 02/09/22 History famotidine 40 mg tablet 40 mg PO HS 03/30/20 02/09/22 History methenamine hippurate 1 gram tablet 1 g PO BID 11/05/20 02/09/22 History prednisone 5 mg tablet 10 mg PO QAM 04/27/21 02/09/22 History atorvastatin 20 mg tablet 20 mg PO HS 08/27/21 02/09/22 History glipizide 10 mg tablet, extended 10 mg PO QAM 08/27/21 02/09/22 History release 24 hr clobetasol 0.05 % topical cream 1 applic topical BID PRN . 09/16/21 02/09/22 History lisinopril 40 mg tablet 40 mg PO QAM 09/16/21 02/09/22 History hydralazine 25 mg tablet 25 mg PO TID #90 tabs 10/01/21 02/09/22 Rx magnesium oxide 400 mg PO QAM 02/09/22 02/09/22 History Patient History Medical History Acute hyponatremia Acute UTI Acute UTI Bladder stone Diabetes Diarrhea Headache HLD (hyperlipidemia) HTN (hypertension) Hypertension Hyponatremia Ileus Lactic acidosis Nephrolithiasis Neurogenic bladder Osteomyelitis Pemphigoid Pemphigus foliaceus Sacral wound Suprapubic catheter UTI (urinary tract infection) due to urinary indwelling catheter Surgical History History of hip surgery History of suprapubic catheter Previous back surgery Family History Mother Cancer Father Diabetes Grandfather Diabetes Social History Smoking Status: Never smoker Second Hand Exposure: No; Hx Alcohol Use: No Hx Substance Use: No Preferred Language: Malay Communication Ability: Effective Visual Impairment: No Limitations Hearing Ability: Normal Director Of Volunteer Services Required: No Beliefs That Will Affect Care: None marital status: Single Current Living Situation: Alone Current Living Situation Comment: Typically lives alone with daily care provider How many Children do You have: 0 Other Information That Helps Us Care for You: No Feels Safe at Home: Yes Safety Concerns: Feels Safe At This Time during the past year weight has: decreased > 10 lbs Assistive Devices: Wheelchair Assistive Devices Comment: ozzy wayne Physical Exam Skin: Skin appears intact without maceration or breakdown interspaces are intact there is extremely dry skin noted difficult to palpate pedal pulses of the feet. The dorsalis pedis and posterior tibial pulse secondary to significant swelling. There appears to be no open wounds or lesions no areas of inflammation or concern. Also noted to be significantly overgrown with thickening yellow discoloration and pain recommend treatment Results & Data ([facility]) Vital Signs (Past 12 Hours) Vital Signs Temp Pulse Resp BP Pulse Ox O2 Del Method 02/11/22 07:51 Room Air 02/11/22 09:30 79 113/75 96 Room Air 02/11/22 08:21 36.3 C L 68 18 177/105 H 97 Room Air 02/11/22 02:03 71 137/80 97
[2022-02-11] MEDS: FOLIC ACID 1 MG TAB PO SCH (20:51)
[2022-02-11] MEDS: lisinopril 40 MG TAB PO SCH (21:00)
[2022-02-11] MEDS: FAMOTIDINE 40 MG TABLET PO SCH (21:01)
[2022-02-11] MEDS: ENOXAPARIN INJ 40 MG/0.4 ML SYR SQ SCH (21:01)
[2022-02-12] MEDS: MEROPENEM 500 MG in SYRINGE 0 ML IV SCH ×4 (03:37→21:29)
[2022-02-12] MEDS: predniSONE 10 MG TABLET PO SCH (07:31)
[2022-02-12] MEDS: amLODIPine BESYLATE 5 MG TAB PO SCH (07:32)
[2022-02-12] MEDS: OXYBUTYNIN CHLORIDE 5 MG TAB PO SCH ×3 (07:32→21:29)
[2022-02-12] MEDS: hydrALAZINE HCL 25 MG TAB PO SCH ×3 (07:32→21:29)
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
[2022-02-12] MEDS: BACLOFEN 10 MG TAB PO SCH ×3 (07:57→21:29)
[2022-02-12 09:20] LABS: Basophils # (auto) 0.06 K/uL (0-0.2); Basophils % (auto) 0.7 %; Eosinophils # (auto) 0.53 K/uL (0-0.50); Eosinophils % (auto) 6.3 %; Hematocrit (blood only) 34.1 % (40.1-51.0); Hemoglobin 11.2 g/dl (14.0-18.0); Immature Granulocytes # (auto) 0.02 K/uL (0.00-0.02); Immature Granulocytes % (auto) 0.2 %; Lymphocytes % (auto) 11.9 %; Mean Corpuscular Hemoglobin 27.7 pg (25.0-34.0); Mean Corpuscular Hgb Conc 32.8 g/dL (32.0-36.0); Mean Corpuscular Volume 84.4 fL (80.0-100.0); Mean Platelet Volume 10.6 fL (9.4-12.4); Monocytes # (auto) 0.73 K/uL (0.24-0.82); Monocytes % (auto) 8.7 %; Neutrophils # (auto) 6.06 K/uL (1.4-6.5); Neutrophils % (auto) 72.2 %; Platelet Count 277 K/uL (130-400); RDW Coefficient of Variation 16.6 % (11.5-14.5); RDW Standard Deviation 50.4 fL (36.4-46.3); Red Blood Count 4.04 M/uL (4.63-6.08)
[2022-02-12] MEDS: INSULIN ASPART PER UNIT SC SCH ×4 (09:35→21:30)
[2022-02-12 09:50] LABS: BUN Creatinine Ratio 19.2 (10-20); Calcium 8.9 mg/dl (8.5-10.1); Creatinine Clr Calc Pharmacy 217.1 ml/min; Est GFR (African American) 142.1 ml/min; Est GFR (Non-African American) 122.6 ml/min; Magnesium 1.7 mg/dl (1.7-2.4)
[2022-02-12] MEDS: bisacodyL 10 MG SUPP PR SCH (09:58)
[2022-02-12] MEDS: CLOBETASOL PROPIONATE 0.05% OINT 15 GM TUBE EXT PRN (11:37)
[2022-02-12] MEDS ORDERED: FUROSEMIDE INJ 20 MG/2 ML VIAL IV ONE (16:18)
[2022-02-12] MEDS: lisinopril 40 MG TAB PO SCH (21:28)
[2022-02-12] MEDS: FOLIC ACID 1 MG TAB PO SCH (21:29)
[2022-02-12] MEDS: FAMOTIDINE 40 MG TABLET PO SCH (21:29)
[2022-02-12] MEDS: ENOXAPARIN INJ 40 MG/0.4 ML SYR SQ SCH (21:29)
[2022-02-13] MEDS: MEROPENEM 500 MG in SYRINGE 0 ML IV SCH ×4 (04:20→22:52)
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
[2022-02-13 08:18] LABS: Basophils # (auto) 0.04 K/uL (0-0.2); Basophils % (auto) 0.5 %; Eosinophils # (auto) 0.62 K/uL (0-0.50); Hematocrit (blood only) 37.1 % (40.1-51.0); Hemoglobin 12.1 g/dl (14.0-18.0); Immature Granulocytes # (auto) 0.02 K/uL (0.00-0.02); Immature Granulocytes % (auto) 0.2 %; Lymphocytes # (auto) 1.43 K/uL (1.2-3.4); Lymphocytes % (auto) 16.2 %; Mean Corpuscular Hgb Conc 32.6 g/dL (32.0-36.0); Mean Corpuscular Volume 82.8 fL (80.0-100.0); Mean Platelet Volume 10.7 fL (9.4-12.4); Monocytes # (auto) 0.86 K/uL (0.24-0.82); Monocytes % (auto) 9.8 %; Neutrophils # (auto) 5.84 K/uL (1.4-6.5); Neutrophils % (auto) 66.3 %; Platelet Count 330 K/uL (130-400); RDW Coefficient of Variation 16.9 % (11.5-14.5); RDW Standard Deviation 49.9 fL (36.4-46.3); Red Blood Count 4.48 M/uL (4.63-6.08); White Blood Count 8.81 K/ul (4.8-10.8)
[2022-02-13 08:46] LABS: Anion Gap 8 (3-11); BUN Creatinine Ratio 31.8 (10-20); Blood Urea Nitrogen 14 mg/dl (6-23); Calcium 9.1 mg/dl (8.5-10.1); Carbon Dioxide 25 mmol/L (21-32); Chloride 99 mmol/L (98-107); Creatinine Clr Calc Pharmacy 256.6 ml/min; Est GFR (African American) > 150.0 ml/min; Est GFR (Non-African American) 131.3 ml/min; Glucose 147 mg/dl (70-99(Fasting)); Magnesium 1.7 mg/dl (1.7-2.4); Potassium 3.9 mmol/L (3.5-5.1); Sodium 132 mmol/L (136-145)
[2022-02-13] MEDS ORDERED: FUROSEMIDE 20 MG TAB PO SCH (09:00)
[2022-02-13] MEDS: hydrALAZINE HCL 25 MG TAB PO SCH ×3 (09:02→21:35)
[2022-02-13] MEDS: OXYBUTYNIN CHLORIDE 5 MG TAB PO SCH ×3 (09:02→21:31)
[2022-02-13] MEDS: amLODIPine BESYLATE 5 MG TAB PO SCH (09:04)
[2022-02-13] MEDS: predniSONE 10 MG TABLET PO SCH (09:04)
[2022-02-13] MEDS: INSULIN ASPART PER UNIT SC SCH ×4 (09:13→21:30)
[2022-02-13] MEDS: bisacodyL 10 MG SUPP PR SCH (09:22)
[2022-02-13] MEDS: BACLOFEN 10 MG TAB PO SCH ×3 (09:48→21:33)
[2022-02-13] MEDS ORDERED: predniSONE 10 MG TABLET PO ONE (12:13)
[2022-02-13] MEDS ORDERED: PHARMACY GLYCEMIC MGMT CONSULT PRN (12:22)
--- NOTE | 2022-02-13 12:39 | Pharmacy Report ---
Pharmacy Glycemic Short Note 2 - Date of Service February 13, 2022 - Glycemic Short BSG Results (Last 24 hours): 02/12/22 02/12/22 02/13/22 17:05 20:35 07:48 Glucose 147 H POC Glucose 133 H 161 H 02/13/22 02/13/22 08:18 12:18 Glucose POC Glucose 143 H 147 H OUTPATIENT ANTIDIABETIC REGIMEN: * glipizide 10 mg daily * metformin 1 gm PO BID ASSESSMENT: * Mr Henry is a 52 y/o M with a PMH of T2DM admitted for UTI. Patient was on his home prednisone 10 mg daily. Now started on 20 mg daily. * BSGs yesterdaay were [phone] mg/dL. Patient received 18 units of Novolog. * Today's BSGs are 143-147 mg/dL. * Hold off on basal as fasting is at goal. * Tighten CR for steroid hyperglycemia. PLAN FOR INPATIENT GLYCEMIC CONTROL: * Hold outpatient oral diabetes medications * Basal insulin * hold for now * Bolus insulin * NovoLog per scale ACHS or Q6hrs while NPO * Goal Range: Low 110 mg/dL - High 140 mg/dL * Correction Factor: 25 mg/dL/unit * Nutritional / Prandial insulin per carb ratio of 1 unit per 9 grams CHO consumed
[2022-02-13] MEDS: ENOXAPARIN INJ 40 MG/0.4 ML SYR SQ SCH (21:31)
[2022-02-13] MEDS: FOLIC ACID 1 MG TAB PO SCH (21:31)
[2022-02-13] MEDS: FAMOTIDINE 40 MG TABLET PO SCH (21:34)
[2022-02-13] MEDS: lisinopril 40 MG TAB PO SCH (21:35)
[2022-02-13 22:09] LABS: Creatinine Clr Calc Pharmacy 194.6 ml/min; Est GFR (African American) 135.9 ml/min; Est GFR (Non-African American) 117.2 ml/min
[2022-02-14] MEDS: MEROPENEM 500 MG in SYRINGE 0 ML IV SCH ×4 (04:13→21:52)
[2022-02-14 08:02] LABS: Anion Gap 9 (3-11); Blood Urea Nitrogen 12 mg/dl (6-23); Calcium 9.2 mg/dl (8.5-10.1); Carbon Dioxide 26 mmol/L (21-32); Chloride 98 mmol/L (98-107); Creatinine Clr Calc Pharmacy 282.2 ml/min; Est GFR (African American) > 150.0 ml/min; Est GFR (Non-African American) 136.6 ml/min; Glucose 129 mg/dl (70-99(Fasting)); Magnesium 1.8 mg/dl (1.7-2.4); Potassium 3.8 mmol/L (3.5-5.1); Sodium 133 mmol/L (136-145)
[2022-02-14] MEDS: INSULIN HUMAN NPH SC SCH (08:56)
[2022-02-14] MEDS: INSULIN ASPART PER UNIT SC SCH ×4 (08:56→21:52)
[2022-02-14] MEDS ORDERED: metHOTREXate sodium 2.5 MG TAB PO SCH (09:00)
[2022-02-14] MEDS: OXYBUTYNIN CHLORIDE 5 MG TAB PO SCH ×3 (09:01→21:52)
[2022-02-14] MEDS: hydrALAZINE HCL 25 MG TAB PO SCH ×3 (09:01→21:50)
[2022-02-14] MEDS: BACLOFEN 10 MG TAB PO SCH ×3 (09:02→21:51)
[2022-02-14] MEDS: amLODIPine BESYLATE 5 MG TAB PO SCH (09:03)
[2022-02-14] MEDS: predniSONE 20 MG TAB PO SCH (09:05)
[2022-02-14] MEDS: bisacodyL 10 MG SUPP PR SCH (10:52)
[2022-02-14] MEDS: ADVANCED PROBIOTIC 1250 MG CAPSULE PO SCH (10:52)
--- NOTE | 2022-02-14 13:00 | Pharmacy Report ---
Pharmacy Glycemic Short Note 2 - Date of Service February 14, 2022 - Glycemic Short BSG Results (Last 24 hours): 02/13/22 02/13/22 02/14/22 17:08 20:34 07:08 Glucose 129 H POC Glucose 184 H 200 H 02/14/22 02/14/22 08:21 12:10 Glucose POC Glucose 136 H 158 H OUTPATIENT ANTIDIABETIC REGIMEN: * glipizide 10 mg daily * metformin 1 gm PO BID ASSESSMENT: 02/14/22 * Patient's BSGs yesterday were 143-147 (second dose of prednisone 10 mg) - 184- 200 mg/dL. Patient received 19 units of bolus insulin. * Fasting today is 136 mg/dL. * Will start NPH 18 units (0.2 unit/kg) due to steroid hyperglycemia from prednisone 20 mg * Tighten CR slightly. BACKGROUND * Mr Henry is a 52 y/o M with a PMH of T2DM admitted for UTI. Patient was on his home prednisone 10 mg daily. Now started on 20 mg daily. * BSGs yesterdaay were [phone] mg/dL. Patient received 18 units of Novolog. * Today's BSGs are 143-147 mg/dL. * Hold off on basal as fasting is at goal. * Tighten CR for steroid hyperglycemia. PLAN FOR INPATIENT GLYCEMIC CONTROL: * Hold outpatient oral diabetes medications * Basal insulin * NPH 18 units SQ daily * Bolus insulin * NovoLog per scale ACHS or Q6hrs while NPO * Goal Range: Low 110 mg/dL - High 140 mg/dL * Correction Factor: 25 mg/dL/unit * Nutritional / Prandial insulin per carb ratio of 1 unit per 7 grams CHO consumed
[2022-02-14] MEDS: FAMOTIDINE 40 MG TABLET PO SCH (21:50)
[2022-02-14] MEDS: ENOXAPARIN INJ 40 MG/0.4 ML SYR SQ SCH (21:50)
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
[2022-02-14] MEDS: lisinopril 40 MG TAB PO SCH (21:51)
[2022-02-15] MEDS: MEROPENEM 500 MG in SYRINGE 0 ML IV SCH ×4 (04:08→22:18)
[2022-02-15] MEDS: amLODIPine BESYLATE 5 MG TAB PO SCH (08:59)
[2022-02-15] MEDS: hydrALAZINE HCL 25 MG TAB PO SCH ×3 (09:00→22:07)
[2022-02-15] MEDS: bisacodyL 10 MG SUPP PR SCH (09:00)
[2022-02-15] MEDS: BACLOFEN 10 MG TAB PO SCH ×3 (09:01→22:06)
[2022-02-15] MEDS: predniSONE 20 MG TAB PO SCH (09:01)
[2022-02-15] MEDS: ADVANCED PROBIOTIC 1250 MG CAPSULE PO SCH (09:01)
[2022-02-15] MEDS: OXYBUTYNIN CHLORIDE 5 MG TAB PO SCH ×3 (09:01→22:06)
[2022-02-15] MEDS: ENOXAPARIN INJ 40 MG/0.4 ML SYR SQ SCH ×2 (09:39→22:09)
[2022-02-15] MEDS: INSULIN ASPART PER UNIT SC SCH ×4 (09:42→22:17)
[2022-02-15] MEDS: INSULIN HUMAN NPH SC SCH (09:44)
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
[2022-02-15] MEDS: lisinopril 40 MG TAB PO SCH (22:07)
[2022-02-15] MEDS: FAMOTIDINE 40 MG TABLET PO SCH (22:08)
[2022-02-15] MEDS: FOLIC ACID 1 MG TAB PO SCH (22:08)
[2022-02-16] MEDS: MEROPENEM 500 MG in SYRINGE 0 ML IV SCH ×4 (04:07→22:55)
[2022-02-16] MEDS: amLODIPine BESYLATE 5 MG TAB PO SCH (08:36)
[2022-02-16] MEDS: ADVANCED PROBIOTIC 1250 MG CAPSULE PO SCH (08:36)
[2022-02-16] MEDS: hydrALAZINE HCL 25 MG TAB PO SCH ×3 (08:36→21:08)
[2022-02-16] MEDS: OXYBUTYNIN CHLORIDE 5 MG TAB PO SCH ×3 (08:36→21:09)
[2022-02-16] MEDS: bisacodyL 10 MG SUPP PR SCH (08:37)
[2022-02-16] MEDS: BACLOFEN 10 MG TAB PO SCH ×3 (08:37→21:17)
[2022-02-16] MEDS: predniSONE 10 MG TABLET PO SCH (08:38)
[2022-02-16] MEDS: ENOXAPARIN INJ 40 MG/0.4 ML SYR SQ SCH ×2 (08:38→21:08)
[2022-02-16] MEDS: INSULIN ASPART PER UNIT SC SCH ×4 (08:42→21:06)
[2022-02-16] MEDS ORDERED: INSULIN HUMAN NPH SC SCH (09:00)
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
[2022-02-16] MEDS: lisinopril 40 MG TAB PO SCH (21:07)
[2022-02-16] MEDS: FAMOTIDINE 40 MG TABLET PO SCH (21:08)
[2022-02-16] MEDS: FOLIC ACID 1 MG TAB PO SCH (21:08)
[2022-02-17] MEDS: MEROPENEM 500 MG in SYRINGE 0 ML IV SCH ×4 (04:50→23:01)
[2022-02-17 07:00] LABS: Estimated Average Glucose 163 mg/dl; Hemoglobin A1C 7.3 % (4.5-5.6)
[2022-02-17 08:32] LABS: Hematocrit (blood only) 36.6 % (40.1-51.0); Hemoglobin 11.8 g/dl (14.0-18.0); Mean Corpuscular Hemoglobin 27.3 pg (25.0-34.0); Mean Corpuscular Hgb Conc 32.2 g/dL (32.0-36.0); Mean Corpuscular Volume 84.7 fL (80.0-100.0); Platelet Count 311 K/uL (130-400); RDW Coefficient of Variation 16.8 % (11.5-14.5); RDW Standard Deviation 51.8 fL (36.4-46.3); Red Blood Count 4.32 M/uL (4.63-6.08); White Blood Count 7.94 K/ul (4.8-10.8)
[2022-02-17 08:58] LABS: Anion Gap 8 (3-11); BUN Creatinine Ratio 30.2 (10-20); Blood Urea Nitrogen 13 mg/dl (6-23); Calcium 9.1 mg/dl (8.5-10.1); Carbon Dioxide 26 mmol/L (21-32); Chloride 102 mmol/L (98-107); Creatinine Clr Calc Pharmacy 262.5 ml/min; Est GFR (African American) > 150.0 ml/min; Est GFR (Non-African American) 132.6 ml/min; Glucose 115 mg/dl (70-99(Fasting)); Potassium 3.9 mmol/L (3.5-5.1); Sodium 136 mmol/L (136-145)
[2022-02-17] MEDS: OXYBUTYNIN CHLORIDE 5 MG TAB PO SCH ×3 (09:15→20:38)
[2022-02-17] MEDS: INSULIN ASPART PER UNIT SC SCH ×4 (09:15→21:00)
[2022-02-17] MEDS: hydrALAZINE HCL 25 MG TAB PO SCH ×3 (09:17→20:38)
[2022-02-17] MEDS: predniSONE 10 MG TABLET PO SCH (09:17)
[2022-02-17] MEDS: amLODIPine BESYLATE 5 MG TAB PO SCH (09:17)
[2022-02-17] MEDS: bisacodyL 10 MG SUPP PR SCH (09:18)
[2022-02-17] MEDS: BACLOFEN 10 MG TAB PO SCH ×3 (09:18→20:36)
[2022-02-17] MEDS: ADVANCED PROBIOTIC 1250 MG CAPSULE PO SCH (09:20)
[2022-02-17] MEDS: ENOXAPARIN INJ 40 MG/0.4 ML SYR SQ SCH ×2 (09:20→20:33)
--- NOTE | 2022-02-17 11:54 | Pharmacy Report ---
Pharmacy Glycemic Short Note 2 - Date of Service February 17, 2022 - Glycemic Short BSG Results (Last 24 hours): 02/16/22 02/16/22 02/16/22 12:22 17:10 20:40 Glucose POC Glucose 131 H 216 H 167 H 02/17/22 02/17/22 07:52 08:11 Glucose 115 H POC Glucose 131 H OUTPATIENT ANTIDIABETIC REGIMEN: * glipizide 10 mg daily * metformin 1 gm PO BID ASSESSMENT: 02/17/22 * Patient's BSGs yesterday were [phone] mg/dL. Patient received 36 units of insulin (10 units of NPH and 26 units of bolus) yesterday. Patient was transitioned from prednisone 20 mg daily to 10 mg daily. * Fasting BSG was 131 mg/dL. * Previously, patient had done well on prednisone 10 mg daily + Novolog. Will trial this today with tighter CR. 02/14/22 * Patient's BSGs yesterday were 143-147 (second dose of prednisone 10 mg) - 184- 200 mg/dL. Patient received 19 units of bolus insulin. * Fasting today is 136 mg/dL. * Will start NPH 18 units (0.2 unit/kg) due to steroid hyperglycemia from prednisone 20 mg * Tighten CR slightly. BACKGROUND * Mr Henry is a 52 y/o M with a PMH of T2DM admitted for UTI. Patient was on his home prednisone 10 mg daily. Now started on 20 mg daily. * BSGs yesterdaay were [phone] mg/dL. Patient received 18 units of Novolog. * Today's BSGs are 143-147 mg/dL. * Hold off on basal as fasting is at goal. * Tighten CR for steroid hyperglycemia. PLAN FOR INPATIENT GLYCEMIC CONTROL: * Hold outpatient oral diabetes medications * Basal insulin * d/c * Bolus insulin * NovoLog per scale ACHS or Q6hrs while NPO * Goal Range: Low 110 mg/dL - High 140 mg/dL * Correction Factor: 25 mg/dL/unit * Nutritional / Prandial insulin per carb ratio of 1 unit per 6 grams CHO consumed
[2022-02-17] MEDS: lisinopril 40 MG TAB PO SCH (20:34)
[2022-02-17] MEDS: FOLIC ACID 1 MG TAB PO SCH (20:36)
[2022-02-17] MEDS: FAMOTIDINE 40 MG TABLET PO SCH (20:36)
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
[2022-02-17] MEDS ORDERED: KETOCONAZOLE 2% CR 15 GM TUBE EXT SCH (21:00)
[2022-02-17] MEDS: TERBINAFINE CR 30 GM TUBE EXT SCH (21:00)
[2022-02-18] MEDS: MEROPENEM 500 MG in SYRINGE 0 ML IV SCH ×4 (03:41→20:59)
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
[2022-02-18] MEDS: INSULIN ASPART PER UNIT SC SCH ×4 (09:02→20:59)
[2022-02-18] MEDS: ENOXAPARIN INJ 40 MG/0.4 ML SYR SQ SCH ×2 (09:03→20:38)
[2022-02-18] MEDS: amLODIPine BESYLATE 5 MG TAB PO SCH (09:05)
[2022-02-18] MEDS: BACLOFEN 10 MG TAB PO SCH ×3 (09:05→20:38)
[2022-02-18] MEDS: hydrALAZINE HCL 25 MG TAB PO SCH ×3 (09:06→20:50)
[2022-02-18] MEDS: ADVANCED PROBIOTIC 1250 MG CAPSULE PO SCH (09:07)
[2022-02-18] MEDS: predniSONE 10 MG TABLET PO SCH (09:07)
[2022-02-18] MEDS: OXYBUTYNIN CHLORIDE 5 MG TAB PO SCH ×3 (09:08→20:51)
[2022-02-18] MEDS: bisacodyL 10 MG SUPP PR SCH (09:13)
[2022-02-18] MEDS: TERBINAFINE CR 30 GM TUBE EXT SCH ×2 (10:36→20:48)
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
[2022-02-18] MEDS: FOLIC ACID 1 MG TAB PO SCH (20:50)
[2022-02-18] MEDS: lisinopril 40 MG TAB PO SCH (20:51)
[2022-02-18] MEDS: FAMOTIDINE 40 MG TABLET PO SCH (20:51)
[2022-02-19] MEDS: MEROPENEM 500 MG in SYRINGE 0 ML IV SCH ×4 (04:32→21:30)
[2022-02-19] MEDS: BACLOFEN 10 MG TAB PO SCH ×3 (07:45→20:46)
[2022-02-19] MEDS: OXYBUTYNIN CHLORIDE 5 MG TAB PO SCH ×3 (07:45→20:47)
[2022-02-19] MEDS: amLODIPine BESYLATE 5 MG TAB PO SCH (07:46)
[2022-02-19] MEDS: hydrALAZINE HCL 25 MG TAB PO SCH ×3 (07:46→20:47)
[2022-02-19] MEDS: predniSONE 10 MG TABLET PO SCH (07:47)
[2022-02-19] MEDS: ADVANCED PROBIOTIC 1250 MG CAPSULE PO SCH (07:47)
[2022-02-19] MEDS: ENOXAPARIN INJ 40 MG/0.4 ML SYR SQ SCH ×2 (07:48→20:45)
[2022-02-19] MEDS: TERBINAFINE CR 30 GM TUBE EXT SCH ×2 (07:49→20:44)
[2022-02-19] MEDS: bisacodyL 10 MG SUPP PR SCH (07:49)
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
[2022-02-19] MEDS: INSULIN ASPART PER UNIT SC SCH ×4 (09:03→21:30)
[2022-02-19 09:55] LABS: BUN Creatinine Ratio 27.1 (10-20); Calcium 9.4 mg/dl (8.5-10.1); Creatinine Clr Calc Pharmacy 235.2 ml/min; Est GFR (African American) 146.9 ml/min; Est GFR (Non-African American) 126.7 ml/min; Potassium 3.9 mmol/L (3.5-5.1)
[2022-02-19] MEDS: FOLIC ACID 1 MG TAB PO SCH (20:45)
[2022-02-19] MEDS: lisinopril 40 MG TAB PO SCH (20:48)
[2022-02-19] MEDS: FAMOTIDINE 40 MG TABLET PO SCH (20:48)
[2022-02-20] MEDS: MEROPENEM 500 MG in SYRINGE 0 ML IV SCH ×4 (04:10→22:07)
[2022-02-20] MEDS: OXYBUTYNIN CHLORIDE 5 MG TAB PO SCH ×3 (07:52→22:07)
[2022-02-20] MEDS: ADVANCED PROBIOTIC 1250 MG CAPSULE PO SCH (07:52)
[2022-02-20] MEDS: BACLOFEN 10 MG TAB PO SCH ×3 (07:53→22:26)
[2022-02-20] MEDS: TERBINAFINE CR 30 GM TUBE EXT SCH ×2 (07:53→22:11)
[2022-02-20] MEDS: ENOXAPARIN INJ 40 MG/0.4 ML SYR SQ SCH ×2 (07:53→22:09)
[2022-02-20] MEDS: predniSONE 10 MG TABLET PO SCH (07:53)
[2022-02-20] MEDS: hydrALAZINE HCL 25 MG TAB PO SCH ×3 (07:53→22:07)
[2022-02-20] MEDS: amLODIPine BESYLATE 5 MG TAB PO SCH (07:53)
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
--- NOTE | 2022-02-20 08:51 | Pharmacy Report ---
Pharmacy Glycemic Sign Off Nt - Date of Service February 20, 2022 - Assessment & Plan ASSESSMENT: * Pharmacy was consulted by Yue Brown on 02/11/22 for glycemic control and to write orders per [facility] inpatient glycemic control protocol. * Patient has been receiving between 23-25 units of insulin per day for the last 3 days (all of which was bolus, no basal) for adequate glycemic control * BSGs ranging between 115 - 179 mg/dl over the last 3 days. * Regimen has not required any adjustments over the past 72 hrs to achieve this level of control * Patient has been receiving Prednisone 10 mg QAM with only minimal increase in BSG (up to 179 mg/dl) at dinner time. Therefore, no basal insulin ordered to cover the steroid. * Do not anticipate further changes in patient status that would quickly deteriorate glycemic control (i.e. patient to be NPO for upcoming procedure, steroids tapering, starting tube feedings, etc). * Please see recommendations for outpatient antidiabetic regimen below. PLAN FOR INPATIENT GLYCEMIC CONTROL: No changes needed to current regimen. * Continue NovoLog per scale ACHS/Q6hrs while NPO * Goal range = 110-140 mg/dl * CF = 25 mg/dl/unit * CR = 1 unit for ever 6 g CHO consumed * Pharmacy is signing off of glycemic consult and will no longer be making adjustments to inpatient regimen. Please feel free to re-consult if needed. Thank you.
[2022-02-20] MEDS: bisacodyL 10 MG SUPP PR SCH (09:38)
[2022-02-20] MEDS: INSULIN ASPART PER UNIT SC SCH ×4 (09:40→22:27)
[2022-02-20] MEDS: FAMOTIDINE 40 MG TABLET PO SCH (22:08)
[2022-02-20] MEDS: FOLIC ACID 1 MG TAB PO SCH (22:09)
[2022-02-20] MEDS: lisinopril 40 MG TAB PO SCH (22:09)
[2022-02-21] MEDS: MEROPENEM 500 MG in SYRINGE 0 ML IV SCH (04:48)
[2022-02-21] MEDS: bisacodyL 10 MG SUPP PR SCH (08:22)
[2022-02-21] MEDS: ADVANCED PROBIOTIC 1250 MG CAPSULE PO SCH (08:23)
[2022-02-21] MEDS: hydrALAZINE HCL 25 MG TAB PO SCH ×3 (08:24→20:58)
[2022-02-21] MEDS: OXYBUTYNIN CHLORIDE 5 MG TAB PO SCH ×3 (08:24→21:00)
[2022-02-21] MEDS: BACLOFEN 10 MG TAB PO SCH ×3 (08:24→20:55)
[2022-02-21] MEDS: amLODIPine BESYLATE 5 MG TAB PO SCH (08:24)
[2022-02-21] MEDS: TERBINAFINE CR 30 GM TUBE EXT SCH ×2 (08:25→21:00)
[2022-02-21] MEDS: predniSONE 10 MG TABLET PO SCH (08:25)
[2022-02-21] MEDS: ENOXAPARIN INJ 40 MG/0.4 ML SYR SQ SCH ×2 (08:25→20:56)
[2022-02-21] MEDS: metHOTREXate sodium 2.5 MG TAB PO SCH (09:10)
[2022-02-21] MEDS: INSULIN ASPART PER UNIT SC SCH ×4 (09:10→20:59)
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
[2022-02-21] MEDS: FAMOTIDINE 40 MG TABLET PO SCH (20:58)
[2022-02-21] MEDS: lisinopril 40 MG TAB PO SCH (20:59)
[2022-02-22] MEDS: INSULIN ASPART PER UNIT SC SCH ×4 (09:11→22:21)
[2022-02-22] MEDS: amLODIPine BESYLATE 5 MG TAB PO SCH (09:13)
[2022-02-22] MEDS: BACLOFEN 10 MG TAB PO SCH ×3 (09:13→19:58)
[2022-02-22] MEDS: ADVANCED PROBIOTIC 1250 MG CAPSULE PO SCH (09:14)
[2022-02-22] MEDS: ENOXAPARIN INJ 40 MG/0.4 ML SYR SQ SCH ×2 (09:14→19:59)
[2022-02-22] MEDS: hydrALAZINE HCL 25 MG TAB PO SCH ×3 (09:14→19:59)
[2022-02-22] MEDS: OXYBUTYNIN CHLORIDE 5 MG TAB PO SCH ×3 (09:14→20:00)
[2022-02-22] MEDS: TERBINAFINE CR 30 GM TUBE EXT SCH ×2 (09:15→20:01)
[2022-02-22] MEDS: predniSONE 10 MG TABLET PO SCH (09:15)
[2022-02-22] MEDS: bisacodyL 10 MG SUPP PR SCH (09:19)
[2022-02-22] MEDS: FOLIC ACID 1 MG TAB PO SCH (19:58)
[2022-02-22] MEDS: FAMOTIDINE 40 MG TABLET PO SCH (19:59)
[2022-02-22] MEDS: lisinopril 40 MG TAB PO SCH (20:00)
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
[2022-02-23] MEDS: INSULIN ASPART PER UNIT SC SCH ×4 (08:53→21:36)
[2022-02-23] MEDS: OXYBUTYNIN CHLORIDE 5 MG TAB PO SCH ×3 (08:54→21:41)
[2022-02-23] MEDS: predniSONE 10 MG TABLET PO SCH (08:55)
[2022-02-23] MEDS: bisacodyL 10 MG SUPP PR SCH (08:55)
[2022-02-23] MEDS: amLODIPine BESYLATE 5 MG TAB PO SCH (08:55)
[2022-02-23] MEDS: hydrALAZINE HCL 25 MG TAB PO SCH ×3 (08:55→21:41)
[2022-02-23] MEDS: ADVANCED PROBIOTIC 1250 MG CAPSULE PO SCH (08:56)
[2022-02-23] MEDS: ENOXAPARIN INJ 40 MG/0.4 ML SYR SQ SCH ×2 (08:56→21:40)
[2022-02-23] MEDS: TERBINAFINE CR 30 GM TUBE EXT SCH ×2 (08:57→21:40)
[2022-02-23] MEDS: BACLOFEN 10 MG TAB PO SCH ×3 (08:57→21:36)
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
[2022-02-23] MEDS: FOLIC ACID 1 MG TAB PO SCH (20:55)
[2022-02-23] MEDS: ATORVASTATIN 20 MG TAB PO SCH (21:36)
[2022-02-23] MEDS: FAMOTIDINE 40 MG TABLET PO SCH (21:41)
[2022-02-23] MEDS: lisinopril 40 MG TAB PO SCH (21:41)
[2022-02-23] MEDS: METHENAMINE HIPPURATE 1 GM TAB PO SCH (21:51)
[2022-02-24 07:44] LABS: Basophils # (auto) 0.04 K/uL (0-0.2); Basophils % (auto) 0.4 %; Eosinophils # (auto) 0.44 K/uL (0-0.50); Eosinophils % (auto) 4.8 %; Hematocrit (blood only) 35.4 % (40.1-51.0); Hemoglobin 11.6 g/dl (14.0-18.0); Immature Granulocytes # (auto) 0.04 K/uL (0.00-0.02); Immature Granulocytes % (auto) 0.4 %; Lymphocytes # (auto) 1.35 K/uL (1.2-3.4); Lymphocytes % (auto) 14.7 %; Mean Corpuscular Hemoglobin 27.3 pg (25.0-34.0); Mean Corpuscular Hgb Conc 32.8 g/dL (32.0-36.0); Mean Corpuscular Volume 83.3 fL (80.0-100.0); Mean Platelet Volume 11.2 fL (9.4-12.4); Monocytes % (auto) 8.7 %; Neutrophils # (auto) 6.51 K/uL (1.4-6.5); Platelet Count 292 K/uL (130-400); RDW Coefficient of Variation 16.4 % (11.5-14.5); RDW Standard Deviation 49.7 fL (36.4-46.3); Red Blood Count 4.25 M/uL (4.63-6.08); White Blood Count 9.18 K/ul (4.8-10.8)
[2022-02-24 08:29] LABS: Alanine Aminotransferase 22 U/L (7-52); Albumin Globulin Ratio 1.3 (0.9-2); Albumin Level 3.6 gm/dl (3.4-5.0); Alkaline Phosphatase 75 U/L (34-104); Anion Gap 9 (3-11); Aspartate Aminotransferase 11 U/L (13-39); Bilirubin,Total 0.8 mg/dl (0.2-1.0); Blood Urea Nitrogen 12 mg/dl (6-23); Calcium 9.1 mg/dl (8.5-10.1); Carbon Dioxide 24 mmol/L (21-32); Chloride 102 mmol/L (98-107); Creatinine Clr Calc Pharmacy 282.2 ml/min; Est GFR (African American) > 150.0 ml/min; Est GFR (Non-African American) 136.6 ml/min; Globulin 2.7 gm/dl (2.5-4.0); Glucose 127 mg/dl (70-99(Fasting)); Sodium 135 mmol/L (136-145); Total Protein 6.3 gm/dl (6.0-8.3)
[2022-02-24] MEDS: BACLOFEN 10 MG TAB PO SCH ×3 (08:35→20:23)
[2022-02-24] MEDS: INSULIN ASPART PER UNIT SC SCH ×4 (08:35→21:37)
[2022-02-24] MEDS: amLODIPine BESYLATE 5 MG TAB PO SCH (08:35)
[2022-02-24] MEDS: TERBINAFINE CR 30 GM TUBE EXT SCH ×2 (08:37→20:26)
[2022-02-24] MEDS: ENOXAPARIN INJ 40 MG/0.4 ML SYR SQ SCH ×2 (08:37→20:23)
[2022-02-24] MEDS: predniSONE 10 MG TABLET PO SCH (08:37)
[2022-02-24] MEDS: hydrALAZINE HCL 25 MG TAB PO SCH ×3 (08:37→20:24)
[2022-02-24] MEDS: ADVANCED PROBIOTIC 1250 MG CAPSULE PO SCH (08:37)
[2022-02-24] MEDS: OXYBUTYNIN CHLORIDE 5 MG TAB PO SCH ×3 (08:37→20:26)
[2022-02-24] MEDS: bisacodyL 10 MG SUPP PR SCH (08:37)
[2022-02-24] MEDS: METHENAMINE HIPPURATE 1 GM TAB PO SCH ×3 (08:37→20:25)
[2022-02-24] MEDS: MAGNESIUM OXIDE 400 MG TAB PO SCH (08:37)
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
[2022-02-24 11:20] LABS: Appearance Urine Turbid (Clear); Bacteria Urine Automated 1+ (Negative); Bilirubin Urine Negative (Negative); Blood Urine 2+ (Negative); Color Urine Yellow; Glucose Urine UA Negative (Negative); Ketones Urine Negative (Negative); Leukocyte Esterase Urine 3+ (Negative); Nitrite Urine Positive (Negative); Protein Urine Negative (Negative); Specific Gravity Urine 1.013 (1.000-1.030); Urobilinogen Urine Negative (Negative); WBC Urine Automated >30 /hpf (0-5); pH Urine 6.5 (4.5-7.5)
[2022-02-24 12:29] LABS: Cast Urine Automated 0 /lpf (0-5); Epithelial Cell Urine Auto 0-5 /lpf (0-5)
[2022-02-24] MEDS: FOLIC ACID 1 MG TAB PO SCH (20:21)
[2022-02-24] MEDS: ATORVASTATIN 20 MG TAB PO SCH (20:22)
[2022-02-24] MEDS: FAMOTIDINE 40 MG TABLET PO SCH (20:24)
[2022-02-24] MEDS: lisinopril 40 MG TAB PO SCH (20:25)
[2022-02-25 06:56] LABS: Basophils # (auto) 0.05 K/uL (0-0.2); Basophils % (auto) 0.7 %; Eosinophils # (auto) 0.56 K/uL (0-0.50); Eosinophils % (auto) 7.3 %; Hematocrit (blood only) 36.2 % (40.1-51.0); Hemoglobin 11.7 g/dl (14.0-18.0); Immature Granulocytes # (auto) 0.04 K/uL (0.00-0.02); Immature Granulocytes % (auto) 0.5 %; Lymphocytes # (auto) 1.47 K/uL (1.2-3.4); Lymphocytes % (auto) 19.1 %; Mean Corpuscular Hemoglobin 27.4 pg (25.0-34.0); Mean Corpuscular Hgb Conc 32.3 g/dL (32.0-36.0); Mean Corpuscular Volume 84.8 fL (80.0-100.0); Mean Platelet Volume 11.3 fL (9.4-12.4); Monocytes # (auto) 0.73 K/uL (0.24-0.82); Monocytes % (auto) 9.5 %; Neutrophils # (auto) 4.83 K/uL (1.4-6.5); Neutrophils % (auto) 62.9 %; Platelet Count 295 K/uL (130-400); RDW Coefficient of Variation 16.2 % (11.5-14.5); RDW Standard Deviation 49.5 fL (36.4-46.3); Red Blood Count 4.27 M/uL (4.63-6.08); White Blood Count 7.68 K/ul (4.8-10.8)
[2022-02-25 07:18] LABS: Anion Gap 8 (3-11); BUN Creatinine Ratio 35.1 (10-20); Blood Urea Nitrogen 13 mg/dl (6-23); Calcium 8.8 mg/dl (8.5-10.1); Carbon Dioxide 26 mmol/L (21-32); Chloride 103 mmol/L (98-107); Creatinine Clr Calc Pharmacy 305.1 ml/min; Est GFR (African American) > 150.0 ml/min; Glucose 123 mg/dl (70-99(Fasting)); Magnesium 1.8 mg/dl (1.7-2.4); Potassium 3.8 mmol/L (3.5-5.1); Sodium 137 mmol/L (136-145)
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
[2022-02-25] MEDS: INSULIN ASPART PER UNIT SC SCH ×4 (08:40→21:02)
[2022-02-25] MEDS: amLODIPine BESYLATE 5 MG TAB PO SCH (08:42)
[2022-02-25] MEDS: OXYBUTYNIN CHLORIDE 5 MG TAB PO SCH ×3 (08:43→20:50)
[2022-02-25] MEDS: hydrALAZINE HCL 25 MG TAB PO SCH ×3 (08:44→20:49)
[2022-02-25] MEDS: MAGNESIUM OXIDE 400 MG TAB PO SCH (08:44)
[2022-02-25] MEDS: predniSONE 10 MG TABLET PO SCH (08:44)
[2022-02-25] MEDS: ADVANCED PROBIOTIC 1250 MG CAPSULE PO SCH (08:45)
[2022-02-25] MEDS: BACLOFEN 10 MG TAB PO SCH ×3 (08:45→20:47)
[2022-02-25] MEDS: ENOXAPARIN INJ 40 MG/0.4 ML SYR SQ SCH ×2 (08:46→20:48)
[2022-02-25] MEDS: TERBINAFINE CR 30 GM TUBE EXT SCH ×2 (08:47→20:51)
[2022-02-25] MEDS: METHENAMINE HIPPURATE 1 GM TAB PO SCH ×3 (08:47→20:51)
--- NOTE | 2022-02-25 13:47 | Urology Progress Note ---
Date of Service February 25, 2022 Assessment & Plan (1) Catheter-associated urinary tract infection: (2) Suprapubic catheter: Plan - Urology consulted to exchange suprapubic catheter. - Using sterile technique, 20F suprapubic catheter exchanged at bedside without difficulty. Pt tolerated well. - Continue with routine catheter changes and flushes as previously recommended. - Continue supportive care and antibiotics per primary service. - Continue with services for routine catheter care upon discharge. - Plan for outpatient urology follow-up as scheduled. Thank you for allowing us to participate in the acute care of Mr. Henry. Please reconsult us with additional questions, concerns or changes in patient status. Admission and Anticipated Discharge Date Admission Date: February 09, 2022 Subjective Urology asked to exchange SP tube. Patient subjectively doing well. Offers no complaints at present. He says he is awaiting placement. No nausea or vomiting. No fever or chills. SP catheter intact and draining clear yellow urine with sediment. Review of Systems Constitutional: as per Subjective / HPI Gastrointestinal: as per Subjective / HPI Genitourinary: + as per Subjective / HPI Physical Exam Constitutional: + obese; no acute distress Respiratory: normal respiratory effort; no respiratory distress and no labored breathing Musculoskeletal: Head/Neck/Chest: normocephalic Neurologic: awake Psychiatric: Orientation: alert and oriented x 3 Genitourinary: SP catheter intact, patent and draining clear yellow urine with sediment. Using sterile technique, suprapubic catheter was exchanged at bedside without difficulty. Balloon was inflated with 10 mL. Catheter was patent and draining. Pt tolerated well. Results & Data ([facility]) Vital Signs (Past 12 Hours) Vital Signs Temp Pulse Resp BP Pulse Ox O2 Del Method 02/25/22 07:47 36.7 C 67 18 141/83 H 96 Room Air PG Care Time/CCT Total # of Minutes Spent Total Time Spent with Patient: Total time spent is greater than 50% in coordination of care (as documented) at patient's floor/unit and/or counseling patient: Coding Level of Care Code 02015 Subseq Hosp Care Lvl 1 Diagnoses Catheter-associated urinary tract infection T83.511A; N39.0 Suprapubic catheter Z93.59
[2022-02-25 16:19] LABS: Appearance Urine Clear (Clear); Bacteria Urine Automated Negative (Negative); Bilirubin Urine Negative (Negative); Blood Urine 1+ (Negative); Color Urine Yellow; Epithelial Cell Urine Auto >30 /lpf (0-5); Glucose Urine UA Negative (Negative); Ketones Urine Negative (Negative); Leukocyte Esterase Urine 2+ (Negative); Nitrite Urine Negative (Negative); Protein Urine Negative (Negative); Specific Gravity Urine 1.013 (1.000-1.030); Urobilinogen Urine Negative (Negative); WBC Urine Automated >30 /hpf (0-5); pH Urine 6.5 (4.5-7.5)
[2022-02-25] MEDS: FOLIC ACID 1 MG TAB PO SCH (20:46)
[2022-02-25] MEDS: ATORVASTATIN 20 MG TAB PO SCH (20:47)
[2022-02-25] MEDS: FAMOTIDINE 40 MG TABLET PO SCH (20:48)
[2022-02-25] MEDS: lisinopril 40 MG TAB PO SCH (20:49)
[2022-02-26] MEDS: bisacodyL 10 MG SUPP PR SCH (07:45)
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
[2022-02-26] MEDS: INSULIN ASPART PER UNIT SC SCH ×4 (09:08→20:58)
[2022-02-26] MEDS: ENOXAPARIN INJ 40 MG/0.4 ML SYR SQ SCH ×2 (09:10→20:45)
[2022-02-26] MEDS: METHENAMINE HIPPURATE 1 GM TAB PO SCH ×3 (09:10→20:42)
[2022-02-26] MEDS: BACLOFEN 10 MG TAB PO SCH ×3 (09:11→20:43)
[2022-02-26] MEDS: hydrALAZINE HCL 25 MG TAB PO SCH ×3 (09:12→20:42)
[2022-02-26] MEDS: predniSONE 10 MG TABLET PO SCH (09:12)
[2022-02-26] MEDS: OXYBUTYNIN CHLORIDE 5 MG TAB PO SCH ×3 (09:13→20:43)
[2022-02-26] MEDS: amLODIPine BESYLATE 5 MG TAB PO SCH (09:13)
[2022-02-26] MEDS: MAGNESIUM OXIDE 400 MG TAB PO SCH (09:14)
[2022-02-26] MEDS: ADVANCED PROBIOTIC 1250 MG CAPSULE PO SCH (09:14)
[2022-02-26] MEDS: TERBINAFINE CR 30 GM TUBE EXT SCH ×2 (09:15→20:45)
[2022-02-26] MEDS: FAMOTIDINE 40 MG TABLET PO SCH (20:43)
[2022-02-26] MEDS: FOLIC ACID 1 MG TAB PO SCH (20:43)
[2022-02-26] MEDS: lisinopril 40 MG TAB PO SCH (20:43)
[2022-02-26] MEDS: ATORVASTATIN 20 MG TAB PO SCH (20:58)
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
[2022-02-27] MEDS: OXYBUTYNIN CHLORIDE 5 MG TAB PO SCH ×3 (09:17→20:16)
[2022-02-27] MEDS: ADVANCED PROBIOTIC 1250 MG CAPSULE PO SCH (09:17)
[2022-02-27] MEDS: hydrALAZINE HCL 25 MG TAB PO SCH ×3 (09:17→20:13)
[2022-02-27] MEDS: MAGNESIUM OXIDE 400 MG TAB PO SCH (09:18)
[2022-02-27] MEDS: predniSONE 10 MG TABLET PO SCH (09:18)
[2022-02-27] MEDS: BACLOFEN 10 MG TAB PO SCH ×3 (09:18→20:14)
[2022-02-27] MEDS: METHENAMINE HIPPURATE 1 GM TAB PO SCH ×3 (09:19→21:53)
[2022-02-27] MEDS: amLODIPine BESYLATE 5 MG TAB PO SCH (09:19)
[2022-02-27] MEDS: TERBINAFINE CR 30 GM TUBE EXT SCH ×2 (09:20→20:18)
[2022-02-27] MEDS: ENOXAPARIN INJ 40 MG/0.4 ML SYR SQ SCH ×2 (09:21→20:16)
[2022-02-27] MEDS: INSULIN ASPART PER UNIT SC SCH ×4 (09:28→21:51)
[2022-02-27] MEDS: FOLIC ACID 1 MG TAB PO SCH (20:14)
[2022-02-27] MEDS: lisinopril 40 MG TAB PO SCH (20:14)
[2022-02-27] MEDS: FAMOTIDINE 40 MG TABLET PO SCH (20:15)
[2022-02-27] MEDS: ATORVASTATIN 20 MG TAB PO SCH (21:53)
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
[2022-02-28] MEDS: BACLOFEN 10 MG TAB PO SCH ×3 (09:44→20:10)
[2022-02-28] MEDS: hydrALAZINE HCL 25 MG TAB PO SCH ×3 (09:44→20:16)
[2022-02-28] MEDS: OXYBUTYNIN CHLORIDE 5 MG TAB PO SCH ×3 (09:44→20:12)
[2022-02-28] MEDS: amLODIPine BESYLATE 5 MG TAB PO SCH (09:44)
[2022-02-28] MEDS: ENOXAPARIN INJ 40 MG/0.4 ML SYR SQ SCH ×2 (09:52→20:13)
[2022-02-28] MEDS: predniSONE 10 MG TABLET PO SCH (09:52)
[2022-02-28] MEDS: bisacodyL 10 MG SUPP PR SCH (09:53)
[2022-02-28] MEDS: metHOTREXate sodium 2.5 MG TAB PO SCH (09:54)
[2022-02-28] MEDS: MAGNESIUM OXIDE 400 MG TAB PO SCH (09:55)
[2022-02-28] MEDS: ADVANCED PROBIOTIC 1250 MG CAPSULE PO SCH (09:55)
[2022-02-28] MEDS: METHENAMINE HIPPURATE 1 GM TAB PO SCH ×3 (09:56→20:12)
[2022-02-28] MEDS: TERBINAFINE CR 30 GM TUBE EXT SCH ×2 (09:57→20:14)
[2022-02-28] MEDS: INSULIN ASPART PER UNIT SC SCH ×4 (09:58→21:30)
[2022-02-28] MEDS: ATORVASTATIN 20 MG TAB PO SCH (20:12)
[2022-02-28] MEDS: FAMOTIDINE 40 MG TABLET PO SCH (20:13)
[2022-02-28] MEDS: lisinopril 40 MG TAB PO SCH (20:16)
[2022-03-01] MEDS: INSULIN ASPART PER UNIT SC SCH ×4 (10:04→21:23)
[2022-03-01] MEDS: amLODIPine BESYLATE 5 MG TAB PO SCH (10:05)
[2022-03-01] MEDS: ADVANCED PROBIOTIC 1250 MG CAPSULE PO SCH (10:05)
[2022-03-01] MEDS: hydrALAZINE HCL 25 MG TAB PO SCH ×3 (10:06→20:34)
[2022-03-01] MEDS: OXYBUTYNIN CHLORIDE 5 MG TAB PO SCH ×3 (10:07→20:35)
[2022-03-01] MEDS: BACLOFEN 10 MG TAB PO SCH ×3 (10:07→20:36)
[2022-03-01] MEDS: ENOXAPARIN INJ 40 MG/0.4 ML SYR SQ SCH ×2 (10:07→20:37)
[2022-03-01] MEDS: METHENAMINE HIPPURATE 1 GM TAB PO SCH ×3 (10:07→20:35)
[2022-03-01] MEDS: predniSONE 10 MG TABLET PO SCH (10:08)
[2022-03-01] MEDS: MAGNESIUM OXIDE 400 MG TAB PO SCH (10:09)
[2022-03-01] MEDS: TERBINAFINE CR 30 GM TUBE EXT SCH ×2 (10:09→20:38)
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
[2022-03-01] MEDS: FOLIC ACID 1 MG TAB PO SCH (20:30)
[2022-03-01] MEDS: lisinopril 40 MG TAB PO SCH (20:30)
[2022-03-01] MEDS: FAMOTIDINE 40 MG TABLET PO SCH (20:35)
[2022-03-01] MEDS: ATORVASTATIN 20 MG TAB PO SCH (20:37)
[2022-03-02] MEDS: INSULIN ASPART PER UNIT SC SCH ×4 (08:52→21:23)
[2022-03-02] MEDS: BACLOFEN 10 MG TAB PO SCH ×3 (08:53→21:01)
[2022-03-02] MEDS: amLODIPine BESYLATE 5 MG TAB PO SCH (08:53)
[2022-03-02] MEDS: METHENAMINE HIPPURATE 1 GM TAB PO SCH ×3 (08:54→21:01)
[2022-03-02] MEDS: ENOXAPARIN INJ 40 MG/0.4 ML SYR SQ SCH ×2 (08:54→21:02)
[2022-03-02] MEDS: hydrALAZINE HCL 25 MG TAB PO SCH ×3 (08:54→21:01)
[2022-03-02] MEDS: ADVANCED PROBIOTIC 1250 MG CAPSULE PO SCH (08:54)
[2022-03-02] MEDS: MAGNESIUM OXIDE 400 MG TAB PO SCH (08:55)
[2022-03-02] MEDS: OXYBUTYNIN CHLORIDE 5 MG TAB PO SCH ×3 (08:55→21:02)
[2022-03-02] MEDS: bisacodyL 10 MG SUPP PR SCH (08:55)
[2022-03-02] MEDS: predniSONE 10 MG TABLET PO SCH (08:56)
[2022-03-02] MEDS: TERBINAFINE CR 30 GM TUBE EXT SCH ×2 (08:56→21:03)
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
[2022-03-02] MEDS: FAMOTIDINE 40 MG TABLET PO SCH (21:01)
[2022-03-02] MEDS: FOLIC ACID 1 MG TAB PO SCH (21:02)
[2022-03-02] MEDS: lisinopril 40 MG TAB PO SCH (21:02)
[2022-03-02] MEDS: ATORVASTATIN 20 MG TAB PO SCH (21:05)
[2022-03-03] MEDS: ADVANCED PROBIOTIC 1250 MG CAPSULE PO SCH (08:45)
[2022-03-03] MEDS: hydrALAZINE HCL 25 MG TAB PO SCH ×3 (08:46→20:01)
[2022-03-03] MEDS: BACLOFEN 10 MG TAB PO SCH ×3 (08:46→20:01)
[2022-03-03] MEDS: OXYBUTYNIN CHLORIDE 5 MG TAB PO SCH ×3 (08:46→20:02)
[2022-03-03] MEDS: amLODIPine BESYLATE 5 MG TAB PO SCH (08:46)
[2022-03-03] MEDS: predniSONE 10 MG TABLET PO SCH (08:47)
[2022-03-03] MEDS: METHENAMINE HIPPURATE 1 GM TAB PO SCH ×3 (08:47→21:41)
[2022-03-03] MEDS: ENOXAPARIN INJ 40 MG/0.4 ML SYR SQ SCH ×2 (08:48→20:02)
[2022-03-03] MEDS: TERBINAFINE CR 30 GM TUBE EXT SCH ×2 (08:49→20:02)
[2022-03-03] MEDS: MAGNESIUM OXIDE 400 MG TAB PO SCH (08:49)
[2022-03-03] MEDS: INSULIN ASPART PER UNIT SC SCH ×4 (08:50→21:40)
[2022-03-03] MEDS ORDERED: bisacodyL 10 MG SUPP PR STA (10:24)
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
[2022-03-03] MEDS: lisinopril 40 MG TAB PO SCH (20:01)
[2022-03-03] MEDS: ATORVASTATIN 20 MG TAB PO SCH (20:01)
[2022-03-03] MEDS: FOLIC ACID 1 MG TAB PO SCH (20:01)
[2022-03-03] MEDS: FAMOTIDINE 40 MG TABLET PO SCH (20:01)
--- NOTE | 2022-03-04 05:15 | Communication Note ---
Date of Service: March 04, 2022 I was called by RN stating that this patient had previously been seen by urology due to a clogged suprapubic catheter. Review of chart reveals the patient has had his [place] catheter exchanged on 02/25/2022 without difficulty. The RN notes that this time they are having trouble irrigating patient's catheter and he is having bladder spasms therefore requested that I come up to bedside to evaluate I visited with the patient at the bedside and I was unable to still any sterile fluid into the catheter as the catheter appeared clogged. I discussed with the patient that we may need to change his catheter he notes that he does have his catheter exchanged by home health nursing approximately once every month. Upon inspection the patient had a [address] I deflated the balloon of the existing [place] catheter which was easily withdrawn. Upon withdrawal of the catheter a large amount of urine exited through the pre-existing tract. I then prepped the catheter insertion site/skin tract with Betadine and placed a new 20 [place]ic Molina catheter without difficulty. The catheter was easily placed into the bladder through the exis ting tract without meeting any resistance. Prior to inflating the balloon I flushed and irrigated the catheter to ensure proper placement and after instilling some sterile water into the bladder it was easily aspirated this along with urine. The balloon was inflated to 5 cc and the catheter was placed to a collection bag. Urine continued to flow through the catheter and the patient achieves symptomatic relief.
[2022-03-04] MEDS: INSULIN ASPART PER UNIT SC SCH ×4 (08:59→21:00)
[2022-03-04] MEDS: BACLOFEN 10 MG TAB PO SCH ×3 (09:00→20:06)
[2022-03-04] MEDS: METHENAMINE HIPPURATE 1 GM TAB PO SCH ×3 (09:00→20:06)
[2022-03-04] MEDS: ADVANCED PROBIOTIC 1250 MG CAPSULE PO SCH (09:00)
[2022-03-04] MEDS: ENOXAPARIN INJ 40 MG/0.4 ML SYR SQ SCH ×2 (09:00→20:06)
[2022-03-04] MEDS: amLODIPine BESYLATE 5 MG TAB PO SCH (09:00)
[2022-03-04] MEDS: hydrALAZINE HCL 25 MG TAB PO SCH ×3 (09:00→20:06)
[2022-03-04] MEDS: bisacodyL 10 MG SUPP PR SCH (09:00)
[2022-03-04] MEDS: MAGNESIUM OXIDE 400 MG TAB PO SCH (09:00)
[2022-03-04] MEDS: predniSONE 10 MG TABLET PO SCH (09:00)
[2022-03-04] MEDS: CLOBETASOL PROPIONATE 0.05% OINT 15 GM TUBE EXT PRN (09:01)
[2022-03-04] MEDS: OXYBUTYNIN CHLORIDE 5 MG TAB PO SCH ×3 (09:01→20:06)
[2022-03-04] MEDS: TERBINAFINE CR 30 GM TUBE EXT SCH ×2 (09:01→20:08)
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
--- NOTE | 2022-03-04 12:53 | Urology Progress Note ---
Date of Service March 04, 2022 Assessment & Plan (1) Suprapubic catheter: (2) Catheter-associated urinary tract infection: Plan - The patient's suprapubic catheter was exchanged overnight due to being clogged. - This morning, patient felt the catheter was still not draining properly. - On exam, the catheter was intact, patent, and draining well. - The catheter was flushed at bedside without difficulty. Patient tolerated well. - Recommend continuing to monitor closely, call with any further issues/concerns. - Continue with routine catheter changes and flushes as previously recommended. - Continue with services for routine catheter care upon discharge. - Plan for outpatient urology follow-up as scheduled. Admission and Anticipated Discharge Date Admission Date: February 09, 2022 Subjective Patient examined at bedside this afternoon. Awake, resting in bed on arrival. No acute distress. Patient's catheter became clogged overnight and it was exchanged earlier this morning. Suprapubic catheter currently intact, draining clear yellow urine. Patient denies any pain or discomfort at present. Review of Systems Constitutional: as per Subjective / HPI Genitourinary: + as per Subjective / HPI Physical Exam Constitutional: no acute distress Respiratory: no respiratory distress and no labored breathing Gastrointestinal (Abdomen): Suprapubic catheter intact Neurologic: awake Psychiatric: Orientation: alert and oriented x 3 Results & Data ([facility]) Vital Signs (Past 12 Hours) Vital Signs Temp Pulse Resp BP Pulse Ox O2 Del Method 03/04/22 07:29 36.6 C 74 16 143/80 H 98 03/04/22 06:20 36.4 C L 56 L 18 163/79 H 98 Room Air PG Care Time/CCT Total # of Minutes Spent Total Time Spent with Patient: Total time spent is greater than 50% in coordination of care (as documented) at patient's floor/unit and/or counseling patient: Coding Level of Care Code 72431 Subseq Hosp Care Lvl 2 Diagnoses Suprapubic catheter Z93.59 Catheter-associated urinary tract infection T83.511A; N39.0
[2022-03-04] MEDS: FAMOTIDINE 40 MG TABLET PO SCH (20:05)
[2022-03-04] MEDS: ATORVASTATIN 20 MG TAB PO SCH (20:06)
[2022-03-04] MEDS: lisinopril 40 MG TAB PO SCH (20:06)
[2022-03-04] MEDS: FOLIC ACID 1 MG TAB PO SCH (20:08)
[2022-03-05] MEDS: OXYBUTYNIN CHLORIDE 5 MG TAB PO SCH ×3 (08:39→20:06)
[2022-03-05] MEDS: predniSONE 10 MG TABLET PO SCH (08:39)
[2022-03-05] MEDS: ADVANCED PROBIOTIC 1250 MG CAPSULE PO SCH (08:39)
[2022-03-05] MEDS: METHENAMINE HIPPURATE 1 GM TAB PO SCH ×3 (08:40→20:06)
[2022-03-05] MEDS: hydrALAZINE HCL 25 MG TAB PO SCH ×3 (08:40→20:07)
[2022-03-05] MEDS: BACLOFEN 10 MG TAB PO SCH ×3 (08:40→20:08)
[2022-03-05] MEDS: ENOXAPARIN INJ 40 MG/0.4 ML SYR SQ SCH ×2 (08:41→20:10)
[2022-03-05] MEDS: amLODIPine BESYLATE 5 MG TAB PO SCH (08:41)
[2022-03-05] MEDS: MAGNESIUM OXIDE 400 MG TAB PO SCH (08:41)
[2022-03-05] MEDS: TERBINAFINE CR 30 GM TUBE EXT SCH ×2 (08:41→20:14)
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
[2022-03-05] MEDS: INSULIN ASPART PER UNIT SC SCH ×4 (08:47→21:28)
[2022-03-05] MEDS: lisinopril 40 MG TAB PO SCH (20:06)
[2022-03-05] MEDS: FAMOTIDINE 40 MG TABLET PO SCH (20:08)
[2022-03-05] MEDS: ATORVASTATIN 20 MG TAB PO SCH (20:09)
[2022-03-05] MEDS: FOLIC ACID 1 MG TAB PO SCH (20:10)
[2022-03-05] MEDS: metFORMIN HCL ER 500 MG TABCR PO SCH (21:24)
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
[2022-03-06] MEDS: INSULIN ASPART PER UNIT SC SCH ×4 (08:51→22:03)
[2022-03-06] MEDS: METHENAMINE HIPPURATE 1 GM TAB PO SCH ×3 (08:53→20:21)
[2022-03-06] MEDS: OXYBUTYNIN CHLORIDE 5 MG TAB PO SCH ×3 (08:53→20:21)
[2022-03-06] MEDS: BACLOFEN 10 MG TAB PO SCH ×3 (08:54→20:21)
[2022-03-06] MEDS: hydrALAZINE HCL 25 MG TAB PO SCH ×3 (08:55→20:21)
[2022-03-06] MEDS: predniSONE 10 MG TABLET PO SCH (08:56)
[2022-03-06] MEDS: ADVANCED PROBIOTIC 1250 MG CAPSULE PO SCH (08:56)
[2022-03-06] MEDS: metFORMIN HCL ER 500 MG TABCR PO SCH ×2 (08:56→17:57)
[2022-03-06] MEDS: bisacodyL 10 MG SUPP PR SCH (08:57)
[2022-03-06] MEDS: CLOBETASOL PROPIONATE 0.05% OINT 15 GM TUBE EXT PRN (08:57)
[2022-03-06] MEDS: TERBINAFINE CR 30 GM TUBE EXT SCH ×2 (08:58→20:22)
[2022-03-06] MEDS: ENOXAPARIN INJ 40 MG/0.4 ML SYR SQ SCH ×2 (08:58→20:22)
[2022-03-06] MEDS: MAGNESIUM OXIDE 400 MG TAB PO SCH (08:59)
[2022-03-06] MEDS: amLODIPine BESYLATE 5 MG TAB PO SCH (09:00)
[2022-03-06] MEDS: FAMOTIDINE 40 MG TABLET PO SCH (20:21)
[2022-03-06] MEDS: ATORVASTATIN 20 MG TAB PO SCH (20:21)
[2022-03-06] MEDS: lisinopril 40 MG TAB PO SCH (20:21)
[2022-03-06] MEDS: FOLIC ACID 1 MG TAB PO SCH (20:21)
[2022-03-07] MEDS: INSULIN ASPART PER UNIT SC SCH ×4 (08:49→20:52)
[2022-03-07] MEDS: ENOXAPARIN INJ 40 MG/0.4 ML SYR SQ SCH ×2 (08:51→20:50)
[2022-03-07] MEDS: metHOTREXate sodium 2.5 MG TAB PO SCH (08:52)
[2022-03-07] MEDS: predniSONE 10 MG TABLET PO SCH (08:52)
[2022-03-07] MEDS: metFORMIN HCL ER 500 MG TABCR PO SCH ×2 (08:52→17:42)
[2022-03-07] MEDS: ADVANCED PROBIOTIC 1250 MG CAPSULE PO SCH (08:53)
[2022-03-07] MEDS: hydrALAZINE HCL 25 MG TAB PO SCH ×3 (08:54→20:49)
[2022-03-07] MEDS: amLODIPine BESYLATE 5 MG TAB PO SCH (08:54)
[2022-03-07] MEDS: MAGNESIUM OXIDE 400 MG TAB PO SCH (08:54)
[2022-03-07] MEDS: OXYBUTYNIN CHLORIDE 5 MG TAB PO SCH ×3 (08:55→20:49)
[2022-03-07] MEDS: BACLOFEN 10 MG TAB PO SCH ×3 (08:55→20:49)
[2022-03-07] MEDS: METHENAMINE HIPPURATE 1 GM TAB PO SCH ×3 (08:56→20:49)
[2022-03-07] MEDS: TERBINAFINE CR 30 GM TUBE EXT SCH ×2 (08:56→20:52)
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
[2022-03-07] MEDS: PANTOprazole 40 MG TAB PO SCH (16:06)
[2022-03-07] MEDS: ATORVASTATIN 20 MG TAB PO SCH (20:49)
[2022-03-07] MEDS: FAMOTIDINE 40 MG TABLET PO SCH (20:49)
[2022-03-07] MEDS: lisinopril 40 MG TAB PO SCH (20:51)
--- NOTE | 2022-03-07 21:48 | XRay Report ---
KUB HISTORY: Acute generalized abdominal pain with distention distension, eval constipation COMPARISON: CT abdomen and pelvis 02/09/2022, KUB 09/18/2021 FINDINGS: Chronic gaseous distention of the colon. Descending colon measures up to 9.8 cm transversel y. No significant small bowel distention identified. There is moderate to marked gaseous distention o f the stomach. Mild to moderate colonic fecal retention. Ossifications lateral to the left hip redemo nstrated. Pelvic basin phleboliths are redemonstrated. Right-sided renal calculi are better seen on the comparison CT exam. No pneumoperitoneum or pneumatosis. No fracture. IMPRESSION: 1. Chronic gaseous distention of the colon suggestive of colonic ileus. 2. Mild to moderate fecal retention. 3. Right-sided renal calculi are better characterized on the comparison CT study. No ureteral calculi identified. ACT 112: Negative or not required by law. The above report was generated using voice recognition software. It may contain grammatical, syntax o r spelling errors. Electronically signed by: Franko Solano M.D. 03/07/2022 9:45 PM
[2022-03-08 08:26] LABS: Hematocrit (blood only) 38.7 % (40.1-51.0); Hemoglobin 12.6 g/dl (14.0-18.0); Mean Corpuscular Hemoglobin 27.5 pg (25.0-34.0); Mean Corpuscular Hgb Conc 32.6 g/dL (32.0-36.0); Mean Corpuscular Volume 84.3 fL (80.0-100.0); Mean Platelet Volume 10.8 fL (9.4-12.4); Platelet Count 274 K/uL (130-400); RDW Coefficient of Variation 16.7 % (11.5-14.5); RDW Standard Deviation 50.5 fL (36.4-46.3); Red Blood Count 4.59 M/uL (4.63-6.08); White Blood Count 11.11 K/ul (4.8-10.8)
[2022-03-08 08:51] LABS: Calcium 9.6 mg/dl (8.5-10.1); Creatinine Clr Calc Pharmacy 240.2 ml/min; Est GFR (African American) 148.1 ml/min; Est GFR (Non-African American) 127.8 ml/min; Magnesium 1.5 mg/dl (1.7-2.4)
[2022-03-08] MEDS: predniSONE 10 MG TABLET PO SCH (09:10)
[2022-03-08] MEDS: PANTOprazole 40 MG TAB PO SCH (09:10)
[2022-03-08] MEDS: MAGNESIUM OXIDE 400 MG TAB PO SCH ×2 (09:10→21:41)
[2022-03-08] MEDS: ADVANCED PROBIOTIC 1250 MG CAPSULE PO SCH (09:11)
[2022-03-08] MEDS: OXYBUTYNIN CHLORIDE 5 MG TAB PO SCH ×3 (09:11→21:38)
[2022-03-08] MEDS: amLODIPine BESYLATE 5 MG TAB PO SCH (09:11)
[2022-03-08] MEDS: metFORMIN HCL ER 500 MG TABCR PO SCH ×2 (09:11→17:55)
[2022-03-08] MEDS: ENOXAPARIN INJ 40 MG/0.4 ML SYR SQ SCH ×2 (09:12→21:40)
[2022-03-08] MEDS: BACLOFEN 10 MG TAB PO SCH ×3 (09:12→21:37)
[2022-03-08] MEDS: hydrALAZINE HCL 25 MG TAB PO SCH ×3 (09:12→21:37)
[2022-03-08] MEDS: METHENAMINE HIPPURATE 1 GM TAB PO SCH ×3 (09:12→21:39)
[2022-03-08] MEDS: TERBINAFINE CR 30 GM TUBE EXT SCH ×2 (09:13→21:42)
[2022-03-08] MEDS: bisacodyL 10 MG SUPP PR SCH (09:14)
[2022-03-08] MEDS: INSULIN ASPART PER UNIT SC SCH ×4 (09:18→20:38)
[2022-03-08] MEDS: MAGNESIUM SULFATE / D5W 1 GM/100 ML BAG IV SCH ×2 (12:02→13:46)
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
[2022-03-08] MEDS: ATORVASTATIN 20 MG TAB PO SCH (21:39)
[2022-03-08] MEDS: FOLIC ACID 1 MG TAB PO SCH (21:39)
[2022-03-08] MEDS: lisinopril 40 MG TAB PO SCH (21:39)
[2022-03-08] MEDS: FAMOTIDINE 40 MG TABLET PO SCH (21:40)
[2022-03-09] MEDS: MAGNESIUM OXIDE 400 MG TAB PO SCH ×2 (08:22→21:44)
[2022-03-09] MEDS: metFORMIN HCL ER 500 MG TABCR PO SCH (08:22)
[2022-03-09] MEDS: METHENAMINE HIPPURATE 1 GM TAB PO SCH ×3 (08:22→21:44)
[2022-03-09] MEDS: OXYBUTYNIN CHLORIDE 5 MG TAB PO SCH ×3 (08:23→21:45)
[2022-03-09] MEDS: ENOXAPARIN INJ 40 MG/0.4 ML SYR SQ SCH ×2 (08:23→21:47)
[2022-03-09] MEDS: amLODIPine BESYLATE 5 MG TAB PO SCH (08:23)
[2022-03-09] MEDS: hydrALAZINE HCL 25 MG TAB PO SCH ×3 (08:23→21:43)
[2022-03-09] MEDS: bisacodyL 10 MG SUPP PR SCH ×3 (08:23→17:08)
[2022-03-09] MEDS: predniSONE 10 MG TABLET PO SCH (08:23)
[2022-03-09] MEDS: ADVANCED PROBIOTIC 1250 MG CAPSULE PO SCH (08:23)
[2022-03-09] MEDS: PANTOprazole 40 MG TAB PO SCH (08:23)
[2022-03-09] MEDS: TERBINAFINE CR 30 GM TUBE EXT SCH ×2 (08:24→21:45)
[2022-03-09] MEDS: BACLOFEN 10 MG TAB PO SCH ×3 (08:25→21:41)
[2022-03-09] MEDS: INSULIN ASPART PER UNIT SC SCH ×4 (09:08→21:37)
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
[2022-03-09] MEDS: ATORVASTATIN 20 MG TAB PO SCH (21:40)
[2022-03-09] MEDS: FOLIC ACID 1 MG TAB PO SCH (21:42)
[2022-03-09] MEDS: lisinopril 40 MG TAB PO SCH (21:43)
[2022-03-09] MEDS: FAMOTIDINE 40 MG TABLET PO SCH (21:43)
[2022-03-10] MEDS: INSULIN ASPART PER UNIT SC SCH ×4 (08:55→21:25)
[2022-03-10] MEDS: hydrALAZINE HCL 25 MG TAB PO SCH ×3 (08:59→20:33)
[2022-03-10] MEDS: PANTOprazole 40 MG TAB PO SCH (08:59)
[2022-03-10] MEDS: METHENAMINE HIPPURATE 1 GM TAB PO SCH ×3 (09:00→20:31)
[2022-03-10] MEDS: amLODIPine BESYLATE 5 MG TAB PO SCH (09:00)
[2022-03-10] MEDS: MAGNESIUM OXIDE 400 MG TAB PO SCH ×2 (09:00→20:34)
[2022-03-10] MEDS: OXYBUTYNIN CHLORIDE 5 MG TAB PO SCH ×3 (09:00→20:33)
[2022-03-10] MEDS: predniSONE 10 MG TABLET PO SCH (09:00)
[2022-03-10] MEDS: BACLOFEN 10 MG TAB PO SCH ×3 (09:00→20:29)
[2022-03-10] MEDS: ENOXAPARIN INJ 40 MG/0.4 ML SYR SQ SCH ×2 (09:00→20:32)
[2022-03-10] MEDS: ADVANCED PROBIOTIC 1250 MG CAPSULE PO SCH (09:00)
[2022-03-10] MEDS: TERBINAFINE CR 30 GM TUBE EXT SCH ×2 (09:01→20:36)
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
[2022-03-10] MEDS: bisacodyL 10 MG SUPP PR SCH (13:22)
[2022-03-10] MEDS: FAMOTIDINE 40 MG TABLET PO SCH (20:31)
[2022-03-10] MEDS: ATORVASTATIN 20 MG TAB PO SCH (20:31)
[2022-03-10] MEDS: FOLIC ACID 1 MG TAB PO SCH (20:32)
[2022-03-10] MEDS: lisinopril 40 MG TAB PO SCH (20:34)
[2022-03-11] MEDS: MAGNESIUM OXIDE 400 MG TAB PO SCH ×2 (07:36→20:57)
[2022-03-11] MEDS: predniSONE 10 MG TABLET PO SCH (07:36)
[2022-03-11] MEDS: BACLOFEN 10 MG TAB PO SCH ×3 (07:36→20:57)
[2022-03-11] MEDS: amLODIPine BESYLATE 5 MG TAB PO SCH (07:37)
[2022-03-11] MEDS: ADVANCED PROBIOTIC 1250 MG CAPSULE PO SCH (07:37)
[2022-03-11] MEDS: hydrALAZINE HCL 25 MG TAB PO SCH ×3 (07:38→20:56)
[2022-03-11] MEDS: OXYBUTYNIN CHLORIDE 5 MG TAB PO SCH ×3 (07:38→20:55)
[2022-03-11] MEDS: METHENAMINE HIPPURATE 1 GM TAB PO SCH ×3 (07:39→20:55)
[2022-03-11] MEDS: PANTOprazole 40 MG TAB PO SCH (07:39)
[2022-03-11] MEDS: ENOXAPARIN INJ 40 MG/0.4 ML SYR SQ SCH ×2 (07:39→20:56)
[2022-03-11] MEDS: TERBINAFINE CR 30 GM TUBE EXT SCH ×2 (07:43→20:59)
[2022-03-11 08:22] LABS: Anion Gap 8 (3-11); Blood Urea Nitrogen 9 mg/dl (6-23); Calcium 8.9 mg/dl (8.5-10.1); Carbon Dioxide 24 mmol/L (21-32); Chloride 102 mmol/L (98-107); Creatinine Clr Calc Pharmacy 275.3 ml/min; Est GFR (African American) > 150.0 ml/min; Est GFR (Non-African American) 135.2 ml/min; Glucose 138 mg/dl (70-99(Fasting)); Magnesium 1.6 mg/dl (1.7-2.4); Potassium 3.6 mmol/L (3.5-5.1); Sodium 134 mmol/L (136-145)
[2022-03-11] MEDS: INSULIN ASPART PER UNIT SC SCH ×4 (08:47→20:58)
[2022-03-11] MEDS ORDERED: MAGNESIUM SULFATE / D5W 1 GM/100 ML BAG IV ONE (08:53)
[2022-03-11] MEDS: bisacodyL 10 MG SUPP PR SCH (08:55)
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
[2022-03-11] MEDS: FAMOTIDINE 40 MG TABLET PO SCH (20:55)
[2022-03-11] MEDS: FOLIC ACID 1 MG TAB PO SCH (20:55)
[2022-03-11] MEDS: lisinopril 40 MG TAB PO SCH (20:56)
[2022-03-11] MEDS: ATORVASTATIN 20 MG TAB PO SCH (20:57)
[2022-03-12 07:07] LABS: Basophils # (auto) 0.04 K/uL (0-0.2); Basophils % (auto) 0.4 %; Eosinophils # (auto) 0.72 K/uL (0-0.50); Eosinophils % (auto) 7.8 %; Hematocrit (blood only) 35.3 % (40.1-51.0); Hemoglobin 11.6 g/dl (14.0-18.0); Immature Granulocytes # (auto) 0.06 K/uL (0.00-0.02); Immature Granulocytes % (auto) 0.6 %; Lymphocytes # (auto) 1.42 K/uL (1.2-3.4); Lymphocytes % (auto) 15.3 %; Mean Corpuscular Hemoglobin 27.6 pg (25.0-34.0); Mean Corpuscular Hgb Conc 32.9 g/dL (32.0-36.0); Mean Corpuscular Volume 83.8 fL (80.0-100.0); Mean Platelet Volume 11.6 fL (9.4-12.4); Monocytes # (auto) 0.73 K/uL (0.24-0.82); Monocytes % (auto) 7.9 %; Neutrophils # (auto) 6.31 K/uL (1.4-6.5); Platelet Count 274 K/uL (130-400); RDW Coefficient of Variation 16.6 % (11.5-14.5); RDW Standard Deviation 49.5 fL (36.4-46.3); Red Blood Count 4.21 M/uL (4.63-6.08); White Blood Count 9.28 K/ul (4.8-10.8)
[2022-03-12 07:33] LABS: BUN Creatinine Ratio 22.4 (10-20); Calcium 8.9 mg/dl (8.5-10.1); Creatinine Clr Calc Pharmacy 194.6 ml/min; Est GFR (African American) 135.9 ml/min; Est GFR (Non-African American) 117.2 ml/min; Magnesium 1.7 mg/dl (1.7-2.4); Potassium 3.6 mmol/L (3.5-5.1)
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
[2022-03-12] MEDS: INSULIN ASPART PER UNIT SC SCH ×4 (08:48→20:45)
[2022-03-12] MEDS: BACLOFEN 10 MG TAB PO SCH ×3 (08:59→20:28)
[2022-03-12] MEDS: METHENAMINE HIPPURATE 1 GM TAB PO SCH ×3 (09:00→20:26)
[2022-03-12] MEDS: predniSONE 10 MG TABLET PO SCH (09:00)
[2022-03-12] MEDS: OXYBUTYNIN CHLORIDE 5 MG TAB PO SCH ×3 (09:00→20:30)
[2022-03-12] MEDS: hydrALAZINE HCL 25 MG TAB PO SCH ×3 (09:00→20:30)
[2022-03-12] MEDS: TERBINAFINE CR 30 GM TUBE EXT SCH ×2 (09:01→20:31)
[2022-03-12] MEDS: MAGNESIUM OXIDE 400 MG TAB PO SCH ×2 (09:29→20:30)
[2022-03-12] MEDS: ENOXAPARIN INJ 40 MG/0.4 ML SYR SQ SCH ×2 (09:29→20:26)
[2022-03-12] MEDS: PANTOprazole 40 MG TAB PO SCH (09:29)
[2022-03-12] MEDS: ADVANCED PROBIOTIC 1250 MG CAPSULE PO SCH (09:29)
[2022-03-12] MEDS: bisacodyL 10 MG SUPP PR SCH (09:29)
[2022-03-12] MEDS: amLODIPine BESYLATE 5 MG TAB PO SCH (09:30)
--- NOTE | 2022-03-12 14:55 | Urology Progress Note ---
Date of Service March 12, 2022 Assessment & Plan (1) Suprapubic catheter: (2) Catheter-associated urinary tract infection: Plan - Urology consulted to exchange suprapubic catheter. - Using sterile technique, 20F suprapubic catheter exchanged at bedside without difficulty. Pt tolerated well. - Continue with routine catheter changes and flushes as previously recommended. - Continue supportive care and antibiotics per primary service. - Continue with services for routine catheter care upon discharge. - Plan for outpatient urology follow-up as scheduled. Thank you for allowing us to participate in the acute care of Mr. Henry. Please reconsult us with additional questions, concerns or changes in patient status. Admission and Anticipated Discharge Date Admission Date: February 09, 2022 Supervising Physician Co-Signing Physician Notes Discussed patient with ADA. Agree with plan. Subjective Urology asked to exchange SP tube. Last SP tube exchanged on 03/04. Patient subjectively doing well. Offers no complaints at present. He is awaiting placement. No nausea or vomiting. No fever or chills. SP catheter intact and draining yellow urine with sediment, tubing has sediment film on it. Review of Systems Constitutional: as per Subjective / HPI Gastrointestinal: as per Subjective / HPI Genitourinary: + as per Subjective / HPI Physical Exam Constitutional: + obese; no acute distress Respiratory: normal respiratory effort; no respiratory distress and no labored breathing Musculoskeletal: Head/Neck/Chest: normocephalic Neurologic: awake Psychiatric: Orientation: alert and oriented x 3 Genitourinary: SP catheter intact, patent and draining yellow urine with sediment, there was significant sediment film on tubing. Using sterile technique, suprapubic catheter was exchanged at bedside without difficulty. Balloon was inflated with 10 mL. Flushed/irrigated catheter with about 90 mL. Catheter was patent and draining. Pt tolerated well. Results & Data ([facility]) Vital Signs (Past 12 Hours) Vital Signs Temp Pulse Resp BP Pulse Ox O2 Del Method 03/12/22 13:52 36.6 C 82 16 109/67 97 Room Air 03/12/22 07:53 36.5 C 80 18 135/84 98 Room Air PG Care Time/CCT Total # of Minutes Spent Total Time Spent with Patient: Total time spent is greater than 50% in coordination of care (as documented) at patient's floor/unit and/or counseling patient: Coding Level of Care Code 32998 Subseq Hosp Care [facility] 2 Diagnoses Suprapubic catheter Z93.59 Catheter-associated urinary tract infection T83.511A; N39.0
[2022-03-12] MEDS: lisinopril 40 MG TAB PO SCH (20:26)
[2022-03-12] MEDS: FOLIC ACID 1 MG TAB PO SCH (20:27)
[2022-03-12] MEDS: FAMOTIDINE 40 MG TABLET PO SCH (20:27)
[2022-03-12] MEDS: ATORVASTATIN 20 MG TAB PO SCH (20:29)
[2022-03-13] MEDS: ADVANCED PROBIOTIC 1250 MG CAPSULE PO SCH (09:04)
[2022-03-13] MEDS: hydrALAZINE HCL 25 MG TAB PO SCH ×3 (09:04→21:14)
[2022-03-13] MEDS: PANTOprazole 40 MG TAB PO SCH (09:05)
[2022-03-13] MEDS: amLODIPine BESYLATE 5 MG TAB PO SCH (09:05)
[2022-03-13] MEDS: MAGNESIUM OXIDE 400 MG TAB PO SCH ×2 (09:05→21:14)
[2022-03-13] MEDS: OXYBUTYNIN CHLORIDE 5 MG TAB PO SCH ×3 (09:05→21:14)
[2022-03-13] MEDS: BACLOFEN 10 MG TAB PO SCH ×3 (09:05→21:15)
[2022-03-13] MEDS: predniSONE 10 MG TABLET PO SCH (09:06)
[2022-03-13] MEDS: METHENAMINE HIPPURATE 1 GM TAB PO SCH ×3 (09:06→21:14)
[2022-03-13] MEDS: ENOXAPARIN INJ 40 MG/0.4 ML SYR SQ SCH ×2 (09:07→21:15)
[2022-03-13] MEDS: TERBINAFINE CR 30 GM TUBE EXT SCH ×2 (09:07→21:16)
[2022-03-13] MEDS: INSULIN ASPART PER UNIT SC SCH ×4 (09:21→21:46)
[2022-03-13] MEDS: bisacodyL 10 MG SUPP PR SCH (14:46)
[2022-03-13] MEDS: lisinopril 40 MG TAB PO SCH (21:14)
[2022-03-13] MEDS: FAMOTIDINE 40 MG TABLET PO SCH (21:15)
[2022-03-13] MEDS: FOLIC ACID 1 MG TAB PO SCH (21:15)
[2022-03-13] MEDS: ATORVASTATIN 20 MG TAB PO SCH (21:15)
[2022-03-14] MEDS: bisacodyL 10 MG SUPP PR SCH (08:49)
[2022-03-14] MEDS: amLODIPine BESYLATE 5 MG TAB PO SCH (08:55)
[2022-03-14] MEDS: BACLOFEN 10 MG TAB PO SCH ×2 (08:55→13:42)
[2022-03-14] MEDS: hydrALAZINE HCL 25 MG TAB PO SCH ×2 (08:56→13:43)
[2022-03-14] MEDS: METHENAMINE HIPPURATE 1 GM TAB PO SCH ×2 (08:57→13:43)
[2022-03-14] MEDS: MAGNESIUM OXIDE 400 MG TAB PO SCH (08:57)
[2022-03-14] MEDS: metHOTREXate sodium 2.5 MG TAB PO SCH (08:57)
[2022-03-14] MEDS: ADVANCED PROBIOTIC 1250 MG CAPSULE PO SCH (08:57)
[2022-03-14] MEDS: predniSONE 10 MG TABLET PO SCH (08:58)
[2022-03-14] MEDS: OXYBUTYNIN CHLORIDE 5 MG TAB PO SCH ×2 (08:58→13:43)
[2022-03-14] MEDS: PANTOprazole 40 MG TAB PO SCH (08:58)
[2022-03-14] MEDS: TERBINAFINE CR 30 GM TUBE EXT SCH (08:58)
[2022-03-14] MEDS: INSULIN ASPART PER UNIT SC SCH ×2 (09:05→12:52)
[2022-03-14] MEDS: ENOXAPARIN INJ 40 MG/0.4 ML SYR SQ SCH (09:06)
[2022-03-14 09:52] LABS: Creatinine Clr Calc Pharmacy 256.6 ml/min; Est GFR (African American) > 150.0 ml/min; Est GFR (Non-African American) 131.3 ml/min
[2022-03-14] MEDS ORDERED: COVID19 BIVALENT Vaccine (Booster ONLY--Pfizer) 30mcg/0.3mL IM ONE (10:53)
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
== END 2022-03-14 16:30 | DRG 698 ==
LOC: ED 14:58 → SUATTDRO 18:12 → EDINP 18:12 → 3W 20:24

== ENCOUNTER 2022-09-02 17:25 | Inpatient (IN) ==
[2022-09-02] MEDS ORDERED: SODIUM CHLORIDE 0.9% 1000ML 1,000 ML IV ONE (19:12)
[2022-09-02] MEDS ORDERED: ONDANSETRON INJ 2 MG/ML 2 ML VIAL IV STA (19:12)
--- NOTE | 2022-09-02 19:17 | Emergency Department Note ---
Impression & Plan SBO (small bowel obstruction), Quadriplegia, Suprapubic catheter, Complicated urinary tract infection, Nausea & vomiting, Hyperglycemia ED Provider Note NAME: MARC PADILLA III AGE: 52 SEX: M : 1970 ARRIVES VIA: Ambulance INFORMANT: Patient, ED PROVIDER(S): Raymond Guajardo MD CHIEF COMPLAINT: Vomiting MEDICAL DECISION MAKING: Patient presents due to concern for feeling unwell with associated nausea and vomiting in setting of virtual quadriplegia and does have a suprapubic catheter in place. IV was established blood work was obtained CT abdomen pelvis ordered the patient was ordered IV fluids and IV Zofran. A urinalysis was obtained along with a urine culture. The patient upon presentation is normal [place] cardiac normotensive afebrile with a normal oxygen saturation. The patient's blood work shows a white count of 11.7 hemoglobin of 12.4. Platelet count is unremarkable. Kidney function unremarkable sodium 132. Initial blood sugar of 227 not DKA. Urinalysis does show concern for infection. I did look at the patient's prior micro which showed . Patient has also had prior Patient has had prior Staph aureus MRSA E. coli ESBL and Pseudomonas.. Patient was ordered meropenem as well as a dose of vancomycin. CT abdomen pelvis that showed concern for bowel obstruction and an NG tube was ordered. This was placed without any complication. I did speak through secure messaging with the on-call general surgery service Dr. Martins and placed a consult in the morning for the patient to be seen. The patient did feel improved after the NG was placed. The patient was admitted to the medicine service by Dr. Warren. Prior /Outside records reviewed: I did review the patient's outpatient from [facility] and rehab. The patient does have a known history of virtual quadriplegia. The patient did have an x-ray completed today which showed colonic ileus of moderate nature with left-sided constipation. Patient reportedly did have an large bowel movement prior to his x-ray was ordered Zofran 4 mg p.o. every 6 clear liquid diet repeat x-ray for . I did review the patient's prior micro urine cultures. This did show prior Staph aureus MRSA E. coli ESBL and Pseudomonas Differential diagnosis: Appendicitis, testicular torsion, infections, diverticulitis, UTI, obstruction, mesenteric ischemia, aortic pathology, inflammatory bowel disease, renal colic, PUD, pancreatitis, biliary pathology, hernia, volvulus, constipation, as well as other pathologies. Diagnostics, as interpreted by me: ECG: None Cardiac monitoring: An order was placed for continuous cardiac monitoring. The monitor shows a rate of 87 with sinus rhythm. Patient was placed on pulse oximetry Medical decision rules: None Imaging studies: 1 view chest x-ray by my read shows possible left-sided pleural effusion but without any obvious pneumonia or pneumothorax. See below for CT HPI: Patient presents from [facility] due to concern for abdominal distention nausea and vomiting. The patient is a partial quadriplegic. The patient denies any chest pains or shortness of breath but does complain of some nausea and associated vomiting. The patient does not have sensation in his abdomen. 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 Patient has had nausea with associated vomiting no blood in the vomit. No alcohol or tobacco use. Patient does have a suprapubic catheter in place and does state that he does suffer from chronic urinary tract infections. Patient states that this feels similar to when he has had prior bowel obstruction requiring NG tube. Patient was able to take his medications this morning. Patient denies any falls or trauma. I did review the patient's outpatient from [facility] and rehab. The patient does have a known history of virtual quadriplegia. The patient did have an x-ray completed today which showed colonic ileus of moderate nature with left-sided constipation. Patient reportedly did have an large bowel movement prior to his x-ray was ordered Zofran 4 mg p.o. every 6 clear liquid diet repeat x-ray for . PAST MEDICAL HISTORY: See Below PAST SURGICAL HISTORY: See Below SOCIAL HISTORY: See Below HOME MEDICATIONS: See Below ALLERGIES: See Below VITALS: See Below PHYSICAL EXAMINATION: GENERAL: Mildly uncomfortable in appearance. EYE EXAM: Normal conjunctiva. PERRL, no anisocoria and EOM's grossly intact w/o pain. Oropharynx: Dry mucous membranes, edentulous. NECK: Supple, no nuchal rigidity, no adenopathy, non-tender. No signs of meningismus. FROM of the neck with good chin to chest and neck extension. No stridor. LUNGS: Clear to auscultation. Normal chest wall mechanics. HEART: NSR, no MRG. ABDOMEN: Abdominal distention noted, non-tender, normo-active bowel sounds, suprapubic catheter in place. : No pain or swelling to the scrotum bilateral testicles descended, no crepitus or redness to the perineum BACK: No CVA TTP. SKIN: Chronic skin changes to the abdomen noted. No blanching erythema. UPPER EXTREMITIES: Some movements of the bilateral upper extremities more proximally without great use of the hands. LOWER EXTREMITIES: Grossly normal, no edema. No movement no sensation. NEURO EXAM: A&O x3, cranial nerves II-XII grossly intact, normal speech, moves bilateral upper extremities more proximally compared to distally. Past Med/Surg History Medical History Acute hyponatremia Acute UTI Acute UTI Bladder stone Complicated UTI (urinary tract infection) Diabetes Diarrhea Headache HLD (hyperlipidemia) HTN (hypertension) Hypertension Hyponatremia Hyponatremia Ileus Lactic acidosis Nephrolithiasis Neurogenic bladder Osteomyelitis Pemphigoid Pemphigus foliaceus Recurrent UTI (urinary tract infection) Sacral wound Suprapubic catheter UTI (urinary tract infection) due to urinary indwelling catheter Surgical History History of hip surgery History of suprapubic catheter Previous back surgery Family History Mother Cancer Father Diabetes Grandfather Diabetes Social History Smoking Status: Never smoker Second Hand Exposure: No; Hx Alcohol Use: No Hx Substance Use: No Preferred Language: Sinhala Communication Ability: Effective Visual Impairment: No Limitations Hearing Ability: Normal Patient Registration Clerk Required: No Beliefs That Will Affect Care: None marital status: Single Current Living Situation: Alone Current Living Situation Comment: Typically lives alone with daily care provider How many Children do You have: 0 Feels Safe at Home: Yes during the past year weight has: decreased > 10 lbs Assistive Devices: Wheelchair Allergies Allergies Allergy/AdvReac Type Severity Reaction Status Date / Time Sulfa (Sulfonamide Allergy Severe Swelling Verified 09/16/21 13:49 Antibiotics) of Lip/Tongue/Throat piperacillin [From Zosyn] Allergy Intermediate Rash Verified 09/16/21 13:49 tazobactam [From Zosyn] Allergy Intermediate Rash Verified 09/16/21 13:49 Home Meds Home Medications Medication Instructions Recorded Confirmed amlodipine 10 mg tablet 10 mg PO QAM 05/11/18 09/02/22 baclofen 10 mg tablet 25 mg PO TID 05/11/18 09/02/22 folic acid 1 mg tablet 1 mg PO [id number] 05/11/18 09/02/22 methotrexate sodium 2.5 mg tablet 15 mg PO WK 05/11/18 09/02/22 oxybutynin chloride 5 mg tablet 5 mg PO TID 05/11/18 09/02/22 famotidine 40 mg tablet 40 mg PO HS 03/30/20 09/02/22 methenamine hippurate 1 gram tablet 1 g PO AMHS 11/05/20 09/02/22 atorvastatin 20 mg tablet 20 mg PO HS 08/27/21 09/02/22 glipizide 10 mg tablet, extended 10 mg PO QAM 08/27/21 09/02/22 release 24 hr clobetasol 0.05 % topical cream 1 applic topical Q12 PRN pemphigus 09/16/21 09/02/22 lisinopril 40 mg tablet 40 mg PO QAM 09/16/21 09/02/22 acetaminophen 325 mg tablet 325 mg PO Q4 PRN Pain 09/02/22 09/02/22 acetaminophen 325 mg tablet 650 mg PO Q4 PRN temp>100.4 09/02/22 09/02/22 (Tylenol) aluminum-mag hydroxide-simethicone 30 ml PO Q6H PRN 09/02/22 09/02/22 200 mg-200 mg-20 mg/5 mL oral susp dyspepsia,indigestion ammonium lactate 12 % lotion 1 applic topical BID 09/02/22 09/02/22 bisacodyl 10 mg rectal suppository 10 mg ND DAILY PRN no bm in 24 hr 09/02/22 09/02/22 (Dulcolax (bisacodyl)) after mom bisacodyl 10 mg rectal suppository 10 mg ND Q OTHER DAY 09/02/22 09/02/22 (Dulcolax (bisacodyl)) clobetasol 0.05 % topical cream 1 applic topical QAM 09/02/22 09/02/22 clotrimazole-betamethasone 1 1 applic topical BID 09/02/22 09/02/22 %-0.05 % topical cream cranberry fruit 450 mg tablet 450 mg PO DAILY 09/02/22 09/02/22 (cranberry) ketoconazole 2 % shampoo 1 ea topical UD 09/02/22 09/02/22 magnesium hydroxide 400 mg/5 mL 30 ml PO DAILY PRN no bm in 3 09/02/22 09/02/22 oral suspension (Milk of Magnesia) / shifts magnesium oxide 400 mg (241.3 mg 400 mg PO AMHS 09/02/22 09/02/22 magnesium) tablet metformin 1,000 mg tablet 1,000 mg PO BIDM 09/02/22 09/02/22 multivitamin 1 tab PO DAILY 09/02/22 09/02/22 ondansetron HCl 4 mg tablet 4 mg PO Q6H PRN Nausea And Vomiting 09/02/22 09/02/22 polyethylene glycol 3350 17 17 g PO HS 09/02/22 09/02/22 gram/dose oral powder (Miralax) prednisone 10 mg tablet 10 mg PO DAILY 09/02/22 09/02/22 sodium phosphates 19 gram-7 118 ml ND DAILY PRN no bm by end 09/02/22 09/02/22 gram/118 mL enema (Fleet Enema) of following shift after suppository Previous Rx's Medication Instructions Recorded hydralazine 25 mg tablet 25 mg PO TID #90 tabs 10/01/21 terbinafine HCl 1 % topical cream 1 applic EXT BID #30 grams 03/14/22 Results & Data (ED) Vital Signs Vital Signs - 24 hr 09/02/22 17:32 09/02/22 17:53 09/02/22 19:14 Temperature 36.8 C Temperature Source Oral Pulse Rate 90 85 Pulse Rate [Right Finger] Pulse Rhythm Regular Pulse Rhythm [Right Finger] Pulse Strength Normal Pulse Strength [Right Finger] Respiratory Rate 18 Respiratory Effort / Characteristics Respiratory Depth Normal Respiratory Pattern Regular Blood Pressure 122/76 Blood Pressure [Right Arm] Blood Pressure Mean 91 Blood Pressure Mean [Right Arm] Blood Pressure Position Lying Blood Pressure Position [Right Arm] Pulse Oximetry 97 98 Oxygen Delivery Method Room Air Room Air Sepsis Recent Fever Within 48 Hours No Sepsis New/Unexplained Change in Mental Status No Sepsis Action Taken by Nursing No Action Required 09/02/22 19:24 09/02/22 21:54 Temperature 37 C Temperature Source Oral Pulse Rate 92 H Pulse Rate [Right Finger] 88 Pulse Rhythm Pulse Rhythm [Right Finger] Regular Pulse Strength Pulse Strength [Right Finger] Normal Respiratory Rate 19 Respiratory Effort / Characteristics Non-Labored Spontaneous Respiratory Depth Normal Respiratory Pattern Blood Pressure Blood Pressure [Right Arm] 122/76 Blood Pressure Mean Blood Pressure Mean [Right Arm] 91 Blood Pressure Position Blood Pressure Position [Right Arm] Lying Pulse Oximetry 94 Oxygen Delivery Method Room Air Sepsis Recent Fever Within 48 Hours Sepsis New/Unexplained Change in Mental Status Sepsis Action Taken by [facility] Medications Current Medication List: was personally reviewed by me Laboratory Data Attestation: I reviewed the patient's lab results. 09/02/22 17:45 09/02/22 17:45 Lab Results 09/02/22 09/02/22 09/02/22 Range/Units 17:45 17:45 17:45 WBC 11.71 H (4.8-10.8) K/ul RBC 4.40 L (4.70-6.10) M/uL Hgb 12.4 L (14.0-18.0) g/dl Hct 38.2 L (42.0-52.0) % MCV 86.8 (80.0-100.0) fL MCH 28.2 (25.0-34.0) pg MCHC 32.5 (32.0-36.0) g/dL RDW Std Deviation 50.5 H (36.4-46.3) fL RDW Coeff of Sandor 16.0 H (11.5-14.5) % Plt Count 393 (130-400) K/uL MPV 10.8 (9.4-12.4) fL Immature Gran % (Auto) 0.5 % Neut % (Auto) 85.3 % Lymph % (Auto) 8.3 % [place] % (Auto) 4.8 % Eos % (Auto) 0.8 % Baso % (Auto) 0.3 % Neut # (Auto) 9.99 H (1.40-6.50) K/uL Lymph # (Auto) 0.97 L (1.2-3.4) K/uL [place] # (Auto) 0.56 (0.11-0.59) K/uL Eos # (Auto) 0.09 (0-0.50) K/uL Baso # (Auto) 0.04 (0-0.2) K/uL Immature Gran # (Auto) 0.06 (0.01-0.20) K/uL Sodium 132 L (136-145) mmol/L Potassium 4.2 (3.5-5.1) mmol/L Chloride 98 (98-107) mmol/L Carbon Dioxide 27 (21-32) mmol/L Anion Gap 7 (3-11) BUN 10 (6-23) mg/dl Creatinine 0.53 L (0.6-1.4) mg/dl Est Cr Clr Drug Dosing 215.1 ml/min Est GFR ( Amer) 141.0 ml/min Est GFR (Non-Af Amer) 121.7 ml/min BUN/Creatinine Ratio 18.9 (10-20) Glucose 227 H (70-99(Fasting)) mg/dl Calcium 8.9 (8.5-10.1) mg/dl Total Bilirubin 0.5 (0.2-1.0) mg/dl AST 14 (13-39) U/L ALT 22 (7-52) U/L Alkaline Phosphatase 60 (34-104) U/L Total Protein 6.8 (6.0-8.3) gm/dl Albumin 4.0 (3.4-5.0) gm/dl Globulin 2.8 (2.5-4.0) gm/dl Albumin/Globulin Ratio 1.4 (0.9-2) TSH 2.503 (0.300-4.500) uIu/ml Urine Color Urine Appearance (Clear) Urine pH (4.5-7.5) Ur Specific [place] (1.000-1.030) Urine Protein (Negative) Urine Glucose (UA) (Negative) Urine Ketones (Negative) Urine Blood (Negative) Urine Nitrite (Negative) Urine Bilirubin (Negative) Urine Urobilinogen (Negative) Ur Leukocyte Esterase (Negative) Urine WBC (Auto) (0-5) /hpf Urine RBC (Auto) (0-4) /hpf U Hyaline Cast (Auto) (0-5) /lpf U Epithel Cells (Auto) (0-5) /lpf Urine Bacteria (Auto) (Negative) Amorphous Sediment (None Prsent) Urine Yeast (None Prsent) SARS-CoV-2 (PCR) (Negative) Influenza Type A (PCR) (Neg) Influenza Type B (PCR) (Neg) RSV (RT-PCR) (Neg) 09/02/22 09/02/22 Range/Units 19:20 20:20 WBC (4.8-10.8) K/ul RBC (4.70-6.10) M/uL Hgb (14.0-18.0) g/dl Hct (42.0-52.0) % MCV (80.0-100.0) fL MCH (25.0-34.0) pg MCHC (32.0-36.0) g/dL RDW Std Deviation (36.4-46.3) fL RDW Coeff of Sandor (11.5-14.5) % Plt Count (130-400) K/uL MPV (9.4-12.4) fL Immature Gran % (Auto) % Neut % (Auto) % Lymph % (Auto) % [place] % (Auto) % Eos % (Auto) % Baso % (Auto) % Neut # (Auto) (1.40-6.50) K/uL Lymph # (Auto) (1.2-3.4) K/uL [place] # (Auto) (0.11-0.59) K/uL Eos # (Auto) (0-0.50) K/uL Baso # (Auto) (0-0.2) K/uL Immature Gran # (Auto) (0.01-0.20) K/uL Sodium (136-145) mmol/L Potassium (3.5-5.1) mmol/L Chloride (98-107) mmol/L Carbon Dioxide (21-32) mmol/L Anion Gap (3-11) BUN (6-23) mg/dl Creatinine (0.6-1.4) mg/dl Est Cr Clr Drug Dosing ml/min Est GFR ( Amer) ml/min Est GFR (Non-Af Amer) ml/min BUN/Creatinine Ratio (10-20) Glucose (70-99(Fasting)) mg/dl Calcium (8.5-10.1) mg/dl Total Bilirubin (0.2-1.0) mg/dl AST (13-39) U/L ALT (7-52) U/L Alkaline Phosphatase (34-104) U/L Total Protein (6.0-8.3) gm/dl Albumin (3.4-5.0) gm/dl Globulin (2.5-4.0) gm/dl Albumin/Globulin Ratio (0.9-2) TSH (0.300-4.500) uIu/ml Urine Color Yellow Urine Appearance Turbid A (Clear) Urine pH 6.0 (4.5-7.5) Ur Specific [place] 1.034 H (1.000-1.030) Urine Protein 1+ H (Negative) Urine Glucose (UA) Negative (Negative) Urine Ketones Trace H (Negative) Urine Blood Negative (Negative) Urine Nitrite Positive A (Negative) Urine Bilirubin Negative (Negative) Urine Urobilinogen Negative (Negative) Ur Leukocyte Esterase 2+ H (Negative) Urine WBC (Auto) >30 H (0-5) /hpf Urine RBC (Auto) 0-4 (0-4) /hpf U Hyaline Cast (Auto) 0 (0-5) /lpf U Epithel Cells (Auto) 10-20 H (0-5) /lpf Urine Bacteria (Auto) 4+ H (Negative) Amorphous Sediment Present A (None Prsent) Urine Yeast Budding A (None Prsent) SARS-CoV-2 (PCR) NEGATIVE (Negative) Influenza Type A (PCR) Negative (Neg) Influenza Type B (PCR) Negative (Neg) RSV (RT-PCR) Negative (Neg) Administered Medications Discontinued Medications Sodium Chloride (Nss 1000ml) 1,000 mls @ 999 mls/hr IV .Q1H1M ONE Stop: 09/02/22 20:12 Last Infusion: 09/02/22 20:31 Dose: 0 mls/hr Documented By: Admin: 09/02/22 19:18 Dose: 999 mls/hr Documented By: XAVIER Meropenem 500 mg/ Syringe 10 mls @ 2 mls/min IV Q8H STA; Protocol Stop: 09/02/22 22:11 Last Admin: 09/02/22 22:25 Dose: 2 mls/min Documented By: XAVIER Vancomycin HCl 2,750 mg/ (Sodium Chloride) 555 mls @ 180 mls/min IV NOW ONE Stop: 09/02/22 22:09 Last Admin: 09/02/22 22:29 Dose: 180 mls/min Documented By: XAVIER Ioversol (Optiray 320 500ml) 106 ml IV ONCE ONE Stop: 09/02/22 20:12 Last Admin: 09/02/22 20:12 Dose: 106 ml Documented By: MIKE Ondansetron HCl (Ondansetron Inj 2 Mg/Ml 2 Ml Vial) 4 mg IV NOW STA Stop: 09/02/22 19:13 Last Admin: 09/02/22 19:17 Dose: 4 mg Documented By: XAVIER Imaging Data Radiologist's Impression: Abdomen/Pelvis CT 09/02/22 19:11 Exam(s): CT ABDOMEN + PELVIS With Contrast EXAM: CT Abdomen and Pelvis With Intravenous Contrast CLINICAL HISTORY: Reason for exam: ab distension, partial quadriplegia, vomiting; h/o. TECHNIQUE: Axial computed tomography images of the abdomen and pelvis with intravenous contrast. Automated exposure control was utilized for the study. A dose lowering technique was utilized adhering to the principles of ALARA. CONTRAST: Contrast must be dictated COMPARISON: No relevant prior studies available. FINDINGS: Lung bases: Unremarkable. No mass. No consolidation. ABDOMEN: Liver: Hepatic steatosis. Gallbladder and bile ducts: Unremarkable. No calcified stones. No ductal dilation. Pancreas: Unremarkable. No mass. No ductal dilation. Spleen: Unremarkable. No splenomegaly. Adrenals: Unremarkable. No mass. Kidneys and ureters: Unremarkable. No solid mass. No hydronephrosis. Stomach and bowel: Mildly prominent small bowel in the abdomen measuring up to 4.1 cm, concerning for early/partial small bowel obstruction. No definite transition point identified. No free intraperitoneal air. Surgical evaluation recommended. Moderate fecal retention, correlate for constipation. No mucosal thickening. PELVIS: Appendix: No findings to suggest acute appendicitis. Bladder: Unremarkable. No mass. Reproductive: Unremarkable as visualized. ABDOMEN and PELVIS: Intraperitoneal space: Unremarkable. No free air. No significant fluid collection. Bones/joints: Atrophy of the hip musculature. Degenerative changes of the spine. No acute fracture. No dislocation. Soft tissues: See above. Vasculature: Unremarkable. No abdominal aortic aneurysm. Lymph nodes: Unremarkable. No enlarged lymph nodes. IMPRESSION: Mildly prominent small bowel in the abdomen measuring up to 4.1 cm, concerning for early/partial small bowel obstruction. No definite transition point identified. No free intraperitoneal air. Surgical evaluation recommended. Electronically signed by: Mateus Obrien MD 09/02/22 20:59 PM Discharge Plan Visit Data Chief Complaint: Illness Stated Complaint: ILLNESS ED Provider: Raymond Guajardo Discharge Problem: SBO (small bowel obstruction), Quadriplegia, Suprapubic catheter, Complicated urinary tract infection, Nausea & vomiting, Hyperglycemia Patient Disposition: Admitted As Inpatient Discharge Instructions Interventions: ED Discharge Assessment Last Done: 09/02/22 23:23
[2022-09-02 19:31] LABS: Basophils # (auto) 0.04 K/uL (0-0.2); Basophils % (auto) 0.3 %; Eosinophils # (auto) 0.09 K/uL (0-0.50); Eosinophils % (auto) 0.8 %; Hematocrit (blood only) 38.2 % (42.0-52.0); Hemoglobin 12.4 g/dl (14.0-18.0); Immature Granulocytes # (auto) 0.06 K/uL (0.01-0.20); Immature Granulocytes % (auto) 0.5 %; Lymphocytes # (auto) 0.97 K/uL (1.2-3.4); Lymphocytes % (auto) 8.3 %; Mean Corpuscular Hemoglobin 28.2 pg (25.0-34.0); Mean Corpuscular Hgb Conc 32.5 g/dL (32.0-36.0); Mean Corpuscular Volume 86.8 fL (80.0-100.0); Mean Platelet Volume 10.8 fL (9.4-12.4); Monocytes # (auto) 0.56 K/uL (0.11-0.59); Monocytes % (auto) 4.8 %; Neutrophils # (auto) 9.99 K/uL (1.40-6.50); Neutrophils % (auto) 85.3 %; Platelet Count 393 K/uL (130-400); RDW Standard Deviation 50.5 fL (36.4-46.3); White Blood Count 11.71 K/ul (4.8-10.8)
[2022-09-02 19:37] LABS: Albumin Globulin Ratio 1.4 (0.9-2); BUN Creatinine Ratio 18.9 (10-20); Bilirubin,Total 0.5 mg/dl (0.2-1.0); Calcium 8.9 mg/dl (8.5-10.1); Creatinine Clr Calc Pharmacy 215.1 ml/min; Est GFR (Non-African American) 121.7 ml/min; Globulin 2.8 gm/dl (2.5-4.0); Potassium 4.2 mmol/L (3.5-5.1); Total Protein 6.8 gm/dl (6.0-8.3)
[2022-09-02 20:07] LABS: Influenza A virus by PCR Negative (Neg); Influenza B virus by PCR Negative (Neg); RSV by PCR Negative (Neg); SARS CoV2 RNA(COVID-19) Ceph NEGATIVE (Negative)
[2022-09-02] MEDS ORDERED: OPTIRAY 320 500ml IV ONE (20:11)
[2022-09-02 20:41] LABS: Appearance Urine Turbid (Clear); Bacteria Urine Automated 4+ (Negative); Bilirubin Urine Negative (Negative); Blood Urine Negative (Negative); Color Urine Yellow; Glucose Urine UA Negative (Negative); Ketones Urine Trace (Negative); Leukocyte Esterase Urine 2+ (Negative); Nitrite Urine Positive (Negative); Protein Urine 1+ (Negative); RBC Urine Automated 0-4 /hpf (0-4); Specific Gravity Urine 1.034 (1.000-1.030); Urobilinogen Urine Negative (Negative); WBC Urine Automated >30 /hpf (0-5)
--- NOTE | 2022-09-02 21:00 | CT Scan Report ---
Exam(s): CT ABDOMEN + PELVIS With Contrast EXAM: CT Abdomen and Pelvis With Intravenous Contrast CLINICAL HISTORY: Reason for exam: ab distension, partial quadriplegia, vomiting; h/o. TECHNIQUE: Axial computed tomography images of the abdomen and pelvis with intravenous contrast. Automated exposure control was utilized for the study. A dose lowering technique was utilized adhering to the principles of ALARA. CONTRAST: Contrast must be dictated COMPARISON: No relevant prior studies available. FINDINGS: Lung bases: Unremarkable. No mass. No consolidation. ABDOMEN: Liver: Hepatic steatosis. Gallbladder and bile ducts: Unremarkable. No calcified stones. No ductal dilation. Pancreas: Unremarkable. No mass. No ductal dilation. Spleen: Unremarkable. No splenomegaly. Adrenals: Unremarkable. No mass. Kidneys and ureters: Unremarkable. No solid mass. No hydronephrosis. Stomach and bowel: Mildly prominent small bowel in the abdomen measuring up to 4.1 cm, concerning for early/partial small bowel obstruction. No definite transition point identified. No free intraperitoneal air. Surgical evaluation recommended. Moderate fecal retention, correlate for constipation. No mucosal thickening. PELVIS: Appendix: No findings to suggest acute appendicitis. Bladder: Unremarkable. No mass. Reproductive: Unremarkable as visualized. ABDOMEN and PELVIS: Intraperitoneal space: Unremarkable. No free air. No significant fluid collection. Bones/joints: Atrophy of the hip musculature. Degenerative changes of the spine. No acute fracture. No dislocation. Soft tissues: See above. Vasculature: Unremarkable. No abdominal aortic aneurysm. Lymph nodes: Unremarkable. No enlarged lymph nodes. IMPRESSION: Mildly prominent small bowel in the abdomen measuring up to 4.1 cm, concerning for early/partial small bowel obstruction. No definite transition point identified. No free intraperitoneal air. Surgical evaluation recommended. Electronically signed by: Mateus Obrien MD 09/02/22 20:59 PM
[2022-09-02 21:37] LABS: Amorphous Sediment Urine Present (None Prsent)
[2022-09-02 21:38] LABS: Cast Urine Automated 0 /lpf (0-5)
[2022-09-02] MEDS ORDERED: VANCOMYCIN CONSULT ACTIVE PRN (22:06)
[2022-09-02] MEDS ORDERED: VANCOMYCIN HCL 2,750 MG in SODIUM CHLORIDE 0.9% 500 ML IV ONE (22:06)
[2022-09-02] MEDS ORDERED: MEROPENEM 500 MG in SYRINGE 0 ML IV STA (22:07)
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
[2022-09-03] MEDS ORDERED: GLUCOSE 40% GEL 15 GM TUBE PO PRN (00:26)
[2022-09-03] MEDS ORDERED: DEXTROSE 50% 50 ML SYRINGE IV PRN (00:26)
[2022-09-03] MEDS ORDERED: ACETAMINOPHEN 1,000 MG/100 ML VIAL IV PRN (00:26)
[2022-09-03] MEDS ORDERED: ONDANSETRON INJ 2 MG/ML 2 ML VIAL IV PRN (00:26)
[2022-09-03] MEDS ORDERED: KETOROLAC TROMETHAMINE 15 MG/ML VIAL IV PRN (00:26)
[2022-09-03] MEDS ORDERED: CARBOHYDRATES FOR HYPOGLYCEMIA PO PRN (00:26)
[2022-09-03] MEDS ORDERED: GLUCOSE 10 TAB/TUBE PO PRN (00:26)
[2022-09-03] MEDS: LACTATED RINGER'S 1,000 ML IV SCH ×3 (00:26→16:45)
[2022-09-03] MEDS ORDERED: VANCOMYCIN CONSULT ACTIVE PRN (00:26)
[2022-09-03] MEDS ORDERED: GLUCAGON FOR INJ 1 MG VIAL SQ PRN (00:26)
[2022-09-03] MEDS: INSULIN ASPART PER UNIT SC SCH ×4 (01:37→17:58)
[2022-09-03] MEDS ORDERED: LORazepam 2 MG/1 ML VIAL IV STA (04:03)
[2022-09-03] MEDS: MEROPENEM 500 MG in SYRINGE 0 ML IV SCH ×4 (05:00→21:32)
[2022-09-03 07:42] LABS: Hematocrit (blood only) 32.7 % (42.0-52.0); Hemoglobin 10.9 g/dl (14.0-18.0); Mean Corpuscular Hemoglobin 28.5 pg (25.0-34.0); Mean Corpuscular Hgb Conc 33.3 g/dL (32.0-36.0); Mean Corpuscular Volume 85.4 fL (80.0-100.0); Mean Platelet Volume 10.3 fL (9.4-12.4); Platelet Count 327 K/uL (130-400); RDW Standard Deviation 49.3 fL (36.4-46.3); Red Blood Count 3.83 M/uL (4.70-6.10); White Blood Count 8.29 K/ul (4.8-10.8)
[2022-09-03 07:55] LABS: Anion Gap 3 (3-11); BUN Creatinine Ratio 24.2 (10-20); Blood Urea Nitrogen 8 mg/dl (6-23); Calcium 8.8 mg/dl (8.5-10.1); Carbon Dioxide 31 mmol/L (21-32); Chloride 102 mmol/L (98-107); Creatinine Clr Calc Pharmacy 331.3 ml/min; Est GFR (African American) > 150.0 ml/min; Est GFR (Non-African American) 147.8 ml/min; Glucose 148 mg/dl (70-99(Fasting)); Sodium 136 mmol/L (136-145)
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
--- NOTE | 2022-09-03 08:04 | XRay Report ---
XR chest 1V portable CLINICAL HISTORY: weakness TECHNIQUE: Single frontal radiograph of the chest was obtained. Comparison: Comparison is made to chest radiograph 04/27/2021 FINDINGS: Exam is limited by underpenetration. Bilateral cervical fixation hardware is seen. Cardiomegaly is no monique. The lungs are clear. No evidence of pleural effusion or pneumothorax. IMPRESSION: No acute chest disease. Cardiomegaly is noted. ACT 112: Negative or not required by law. Electronically signed by: John Rizzo M.D. 09/03/2022 8:02 AM
--- NOTE | 2022-09-03 08:17 | Hospitalist Progress Note ---
Date of Service September 03, 2022 Assessment & Plan (1) SBO (small bowel obstruction): Plan: Symptoms improving with the below interventions Continue n.p.o. with NG tube to low intermittent suction, reevaluate tomorrow for possibility of removing tube and escalating diet Continue normal saline at 100 cc/hr General surgery consulted and appreciate recommendations Zofran as needed for nausea, IV Tylenol ordered for discomfort though patient does not have any at this time (did prior to admit) (2) Catheter-associated urinary tract infection: Plan: History of quadriplegia, with chronic suprapubic catheter changed weekly, due tomorrow Urology consulted and appreciate assistance, will exchange catheter tomorrow With mild elevation in WBC count and abdominal pain/pressure on admission (convoluted by SBO, which is also obviously a possible source of abdominal pain) Given patient does not have pelvic sensation to therefore show UTI symptom equivalents, will continue to treat as possible urinary tract infection at this time with Vanco/meropenem Patient has a history of MRSA and ESBL UTI in the past (3) Complicated urinary tract infection: Plan: see above (4) GERD (gastroesophageal reflux disease): Plan: Continue famotidine 20 mg IV every 12 hours (5) Hyponatremia: Plan: Resolved Sodium is 132 on admission, up to 136 with IV fluids (6) Morbid obesity with BMI of 40.0-44.9, adult: Plan: Defer management to primary care provider Plan Continued treatment of SBO and possible UTI, appreciate urology and general surgery consults. Admission and Anticipated Discharge Date Admission Date: September 02, 2022 Subjective Patient without any acute events overnight, does have intermittent spasms typically uses baclofen for such but is n.p.o. at this time. States that the tube is annoying in his nose, otherwise does not have any complaints. He reports that his abdomen was feeling much firmer and more uncomfortable last night than it is now. Review of Systems Review of Systems: All systems reviewed & are unremarkable except as noted in Subjective Physical Exam Constitutional: WD/WN, vitals as above + obese; no acute distress Gastrointestinal (Abdomen): Inspection/Auscultation: + abdomen distended Skin: Multiple scattered scaly plaques with areas of coalition over lower abdomen and flanks bilaterally, bilateral lower extremities, lower back. Nonpainful, nonpruritic. Psychiatric: A+Ox3, euthymic affect Genitourinary: Suprapubic catheter intact, draining clear yellow urine with sediment in tubing. Results & Data Results & Data ([facility]) Vital Signs (Past 12 Hours) Vital Signs Temp Pulse Pulse Resp BP Pulse Ox Pulse Ox 09/03/22 07:32 176/83 H 09/03/22 00:10 95 09/03/22 00:10 09/03/22 00:10 09/03/22 00:10 36.7 C 102 H 16 160/91 H 95 09/02/22 21:54 92 H O2 Del Method O2 Del Method 09/03/22 07:32 09/03/22 00:10 Room Air 09/03/22 00:10 Room Air 09/03/22 00:10 Room Air 09/03/22 00:10 Room Air 09/02/22 21:54 PG Care Time/CCT Total # of Minutes Spent Total Time Spent with Patient: Total time spent is greater than 50% in coordination of care (as documented) at patient's floor/unit and/or counseling patient: Coding Level of Care Code 73357 SUB INP/OBS CARE 3/50MIN Diagnoses SBO (small bowel obstruction) K56.609 Catheter-associated urinary tract infection T83.511A; N39.0 Complicated urinary tract infection N39.0 GERD (gastroesophageal reflux disease) K21.9 Hyponatremia E87.1 Morbid obesity with BMI of 40.0-44.9, adult E66.01; Z68.41
--- NOTE | 2022-09-03 08:31 | XRay Report ---
XR KUB/Abdomen 1 view CLINICAL HISTORY: NG tube inserted TECHNIQUE: 1 view of the abdomen was obtained. Comparison: Comparison is made to abdomen radiograph 03/07/2022 FINDINGS: Enteric tube is seen with the tip and side-port below the diaphragm. The osseous structures are gross ly unremarkable. The bowel gas pattern is nonobstructive. A moderate amount of stool is noted within the large bowel. IMPRESSION: Satisfactory appearance of enteric tube. ACT 112: Negative or not required by law. Electronically signed by: John Rizzo M.D. 09/03/2022 8:30 AM
[2022-09-03] MEDS: FAMOTIDINE 20 MG in SYRINGE 3 ML IV SCH ×2 (09:06→20:17)
[2022-09-03] MEDS ORDERED: VANCOMYCIN HCL 1,250 MG in SODIUM CHLORIDE 0.9% 250 ML IV SCH (10:00)
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
--- NOTE | 2022-09-03 14:58 | Pharmacy Report ---
Pharmacy PK ABX Note - Date of Service September 03, 2022 - Assessment and Plan Assessment * Mr Henry is a 52 year old M receiving vancomycin/meropenem for treatment of UTI. * PMH is significant for quadriplegia, chronic indwelling catheter, DM, pemphigus foliaceus, chronic steroids * Pertinent microbiologic data includes: history of MDR Pseudomonas, ESBL E coli, MRSA * MRSA swab positive. Urine cx pending. * Urology consulted; recommend cont broad spectrum abx until cx resulted. Plan to exchange catheter tomorrow. * Surgery consulted d/t suspected SBO. Recommending conservative mgmt for now. No surgical intervention at this time. Plan Vancomycin * Loading dose: 2750 mg IV x 1 * Maintenance dose: 1500 mg IV every 12 hours * Will use traditional vancomycin dosing in the setting of quadriplegia. AUC dosing may not be appropriate in this pt population d/t unreliability in reported SCr. * Random level ordered for tomorrow Pharmacy will continue to follow and will adjust dose/frequency as necessary. Thank you. Pharmacy has transitioned to AUC monitoring for vancomycin. AUC/SERGEY is the preferred PK/PD target and is associated with decreased risk of nephrotoxicity compared to traditional trough targets.
[2022-09-03] MEDS: VANCOMYCIN HCL 1,500 MG in SODIUM CHLORIDE 0.9% 500 ML IV SCH (16:45)
[2022-09-03] MEDS: LORazepam 2 MG/1 ML VIAL IV PRN (16:46)
[2022-09-04] MEDS: INSULIN ASPART PER UNIT SC SCH ×4 (00:25→17:57)
[2022-09-04] MEDS: LACTATED RINGER'S 1,000 ML IV SCH (01:48)
[2022-09-04] MEDS: LORazepam 2 MG/1 ML VIAL IV PRN (02:08)
[2022-09-04] MEDS: MEROPENEM 500 MG in SYRINGE 0 ML IV SCH ×4 (03:50→22:40)
[2022-09-04] MEDS: VANCOMYCIN HCL 1,500 MG in SODIUM CHLORIDE 0.9% 500 ML IV SCH (05:23)
--- NOTE | 2022-09-04 05:54 | Electrocardiogram Report ---
Test Reason : Blood Pressure : / mmHG Vent. Rate : 090 BPM Atrial Rate : 092 BPM P-R Int : 000 ms QRS Dur : 084 ms QT Int : 358 ms P-R-T Axes : 000 007 051 degrees QTc Int : 437 ms Poor data quality, interpretation may be adversely affected Sinus rhythm Normal ECG When compared with ECG of 16-SEP-2021 09:41, No significant change Confirmed by Adrian Bonner ([id number]) on 09/04/2022 5:54:18 AM Referred By: Kayla Murphy Confirmed By:Adrian Bonner
--- NOTE | 2022-09-04 07:29 | Urology Progress Note ---
Date of Service September 04, 2022 Assessment & Plan (1) Complicated urinary tract infection: (2) Neurogenic bladder: (3) Suprapubic catheter: Plan 52yo/M admitted with SBO, suspected UTI. Urology consulted for suprapubic catheter exchange. - He is afebrile, BP elevated this morning. - Labs reviewed -WBC 9.31, Creatinine 0.35 - Urine culture 09/06/2022 growing ESBL and GNR, vancomycin discontinued, continues on meropenem - Continue antibiotics and tailor as culture data becomes available. - SP tube intact and draining clear yellow urine with sediment in tubing. Patient reports sp tube exchanged last . - Patient would prefer to wait until later today or tomorrow for sp tube exchange due to elevated BP this morning. - Maintain SP tube. Can flush as needed for sediment, clogging. - Urology will follow. Admission and Anticipated Discharge Date Admission Date: September 02, 2022 Subjective Pt seen and examined at bedside this AM. Awake, resting in bed on arrival. No acute distress. Suprapubic catheter intact, draining clear yellow urine. Review of Systems Constitutional: as per Subjective / HPI Genitourinary: + as per Subjective / HPI Physical Exam Constitutional: No acute distress. Obese. NG tube in place Respiratory: no respiratory distress and no labored breathing Gastrointestinal (Abdomen): Inspection/Auscultation: + abdomen distended Musculoskeletal: Head/Neck/Chest: normocephalic Neurologic: awake Psychiatric: Orientation: alert and oriented x 3 Genitourinary: Suprapubic catheter intact, draining clear yellow urine with sediment in tubing. Results & Data ([facility]) Vital Signs (Past 12 Hours) Vital Signs Temp Pulse Resp BP Pulse Ox Pulse Ox O2 Del Method 09/04/22 07:25 36.6 C 82 18 218/127 H 95 Room Air 09/03/22 20:17 96 09/03/22 20:17 Room Air 09/03/22 20:53 36.6 C 80 16 176/96 H 96 Room Air O2 Del Method 09/04/22 07:25 09/03/22 20:17 Room Air 09/03/22 20:17 09/03/22 20:53 PG Care Time/CCT Total # of Minutes Spent Total Time Spent with Patient: Total time spent is greater than 50% in coordination of care (as documented) at patient's floor/unit and/or counseling patient: Coding Level of Care Code 44166 SUB INP/OBS CARE Diagnoses Complicated urinary tract infection N39.0 Neurogenic bladder N31.9 Suprapubic catheter Z93.59
--- NOTE | 2022-09-04 08:10 | Hospitalist Progress Note ---
Date of Service September 04, 2022 Assessment & Plan (1) SBO (small bowel obstruction): Plan: Symptoms improving with the below interventions Continue n.p.o. with NG tube to low intermittent suction, reevaluate tomorrow for possibility of removing tube and escalating diet Continue normal saline at 100 cc/hr, did pause briefly for hypertension prior to discovering that hypertension seem to be in the setting of an acute spasm General surgery consulted and appreciate recommendations, conservative management for now Zofran as needed for nausea, IV Tylenol for discomfort, no reports of such at this time (2) Catheter-associated urinary tract infection: Plan: History of quadriplegia, with chronic suprapubic catheter changed weekly, due for replacement today Urology consulted and appreciate assistance, will exchange catheter today or tomorrow With mild elevation in WBC count and abdominal pain/pressure on admission (convoluted by SBO, which is also obviously a possible source of abdominal pain) Urine culture 09/06/2022 growing ESBL and GNR, vancomycin discontinued, continue meropenem (start date 09/03/2022) (3) Complicated urinary tract infection: Plan: see above (4) History of ESBL E. coli infection: Plan: See above (5) GERD (gastroesophageal reflux disease): Plan: Continue famotidine 20 mg IV every 12 hours (6) Hyponatremia: Plan: Resolving Sodium is 132 on admission, up to 135 with IV fluid (7) Morbid obesity with BMI of 40.0-44.9, adult: Plan: Defer management to outpatient primary care provider Plan Continued treatment of SBO and possible UTI, appreciate urology and general surgery consults. Admission and Anticipated Discharge Date Admission Date: September 02, 2022 Subjective Patient without any acute events overnight. Feels his belly is still distended but improved from prior to admission, less abdominal discomfort. No reports of nausea, shortness of breath, chest pain. Patient did have a few elevated blood pressures in the 200s systolic overnight however per nursing staff this was recorded during acute spasm (has a history of spasms secondary to quadriplegia). Repeat blood pressures have been in the systolic [id number]. Review of Systems Review of Systems: All systems reviewed & are unremarkable except as noted in Subjective Physical Exam Constitutional: WD/WN, vitals as above + obese; no acute distress Gastrointestinal (Abdomen): Inspection/Auscultation: + abdomen distended Abdomen soft, nontender Bilious output noted from NG tube in left naris Skin: Multiple scattered scaly plaques with areas of coalition over lower abdomen and flanks bilaterally, bilateral lower extremities, lower back. Nonpainful, nonpruritic. Psychiatric: A+Ox3, euthymic affect Genitourinary: Suprapubic catheter intact, draining clear yellow urine with sediment in tubing. Results & Data Results & Data ([facility]) Vital Signs (Past 12 Hours) Vital Signs Temp Pulse Resp BP Pulse Ox Pulse Ox O2 Del Method 09/04/22 07:25 36.6 C 82 18 218/127 H 95 Room Air 09/03/22 20:17 96 09/03/22 20:17 Room Air 09/03/22 20:53 36.6 C 80 16 176/96 H 96 Room Air O2 Del Method 09/04/22 07:25 09/03/22 20:17 Room Air 09/03/22 20:17 09/03/22 20:53 PG Care Time/CCT Total # of Minutes Spent Total Time Spent with Patient: Total time spent is greater than 50% in coordination of care (as documented) at patient's floor/unit and/or counseling patient: Coding Level of Care Code 99646 SUB INP/OBS CARE 3/50MIN Diagnoses SBO (small bowel obstruction) K56.609 Catheter-associated urinary tract infection T83.511A; N39.0 Complicated urinary tract infection N39.0 History of ESBL E. coli infection Z86.19 GERD (gastroesophageal reflux disease) K21.9 Hyponatremia E87.1 Morbid obesity with BMI of 40.0-44.9, adult E66.01; Z68.41
[2022-09-04] MEDS: FAMOTIDINE 20 MG in SYRINGE 3 ML IV SCH ×2 (09:38→20:06)
[2022-09-04 10:59] LABS: Hematocrit (blood only) 36.4 % (42.0-52.0); Hemoglobin 12.2 g/dl (14.0-18.0); Mean Corpuscular Hemoglobin 28.9 pg (25.0-34.0); Mean Corpuscular Hgb Conc 33.5 g/dL (32.0-36.0); Mean Corpuscular Volume 86.3 fL (80.0-100.0); Mean Platelet Volume 10.2 fL (9.4-12.4); Platelet Count 327 K/uL (130-400); RDW Coefficient of Variation 16.1 % (11.5-14.5); Red Blood Count 4.22 M/uL (4.70-6.10); White Blood Count 9.31 K/ul (4.8-10.8)
[2022-09-04] MEDS: bisacodyL 10 MG SUPP PR SCH (11:04)
[2022-09-04 11:57] LABS: Anion Gap 10 (3-11); Calcium 8.9 mg/dl (8.5-10.1); Carbon Dioxide 26 mmol/L (21-32); Chloride 99 mmol/L (98-107); Potassium 3.9 mmol/L (3.5-5.1); Sodium 135 mmol/L (136-145)
[2022-09-04 12:03] LABS: BUN Creatinine Ratio 14.3 (10-20); Blood Urea Nitrogen 5 mg/dl (6-23); Creatinine Clr Calc Pharmacy 312.4 ml/min; Est GFR (African American) > 150.0 ml/min; Est GFR (Non-African American) 144.3 ml/min; Glucose 153 mg/dl (70-99(Fasting))
--- NOTE | 2022-09-04 12:05 | Surgery Progress Note ---
Date of Service September 04, 2022 Assessment & Plan (1) SBO (small bowel obstruction): Plan: History of prior episodes however no abdominal surgeries. History of colon distention in past per records. Given patients medical comorbidities would continue conservative management npo for bowel rest, ngt to lis, pain management as needed, antiemetics as needed will follow along Dr. Ambrosio has seen and examined pt, agrees with above. Admission and Anticipated Discharge Date Admission Date: September 02, 2022 Subjective might of passed some gas, waiting for suppository feeling okay still looks bloated Physical Exam Constitutional: WD/WN, vitals as above + obese, cooperative and comfortable; no acute distress, not ill appearing and not frail appearing Gastrointestinal (Abdomen): Inspection/Auscultation: + abdomen distended Percussion/Palpation: abdomen soft; abdomen nontender, no guarding, abdomen not rigid and abdomen not firm NGT tube with brown/bilious output Psychiatric: Orientation: alert and oriented x 3 Results & Data ([facility]) Vital Signs (Past 12 Hours) Vital Signs Temp Pulse Resp BP Pulse Ox O2 Del Method 09/04/22 10:31 86 172/89 H 09/04/22 08:23 Room Air 09/04/22 07:25 36.6 C 82 18 218/127 H 95 Room Air Laboratory Results 09/04/22 09/04/22 09/04/22 Range/Units 11:57 09:45 09:45 WBC 9.31 (4.8-10.8) K/ul RBC 4.22 L (4.70-6.10) M/uL Hgb 12.2 L (14.0-18.0) g/dl Hct 36.4 L (42.0-52.0) % MCV 86.3 (80.0-100.0) fL MCH 28.9 (25.0-34.0) pg MCHC 33.5 (32.0-36.0) g/dL RDW Std Deviation 50.0 H (36.4-46.3) fL RDW Coeff of Sandor 16.1 H (11.5-14.5) % Plt Count 327 (130-400) K/uL MPV 10.2 (9.4-12.4) fL Sodium 135 L (136-145) mmol/L Potassium 3.9 (3.5-5.1) mmol/L Chloride 99 (98-107) mmol/L Carbon Dioxide 26 (21-32) mmol/L Anion Gap 10 (3-11) BUN 5 L (6-23) mg/dl Creatinine 0.35 L (0.6-1.4) mg/dl Est Cr Clr Drug Dosing 312.4 ml/min Est GFR ( Amer) > 150.0 ml/min Est GFR (Non-Af Amer) 144.3 ml/min BUN/Creatinine Ratio 14.3 (10-20) Glucose 153 H (70-99(Fasting)) mg/dl POC Glucose 139 H (70-99) mg/dl Calcium 8.9 (8.5-10.1) mg/dl 09/04/22 09/03/22 09/03/22 Range/Units 05:48 23:58 17:56 WBC (4.8-10.8) K/ul RBC (4.70-6.10) M/uL Hgb (14.0-18.0) g/dl Hct (42.0-52.0) % MCV (80.0-100.0) fL MCH (25.0-34.0) pg MCHC (32.0-36.0) g/dL RDW Std Deviation (36.4-46.3) fL RDW Coeff of Sandor (11.5-14.5) % Plt Count (130-400) K/uL MPV (9.4-12.4) fL Sodium (136-145) mmol/L Potassium (3.5-5.1) mmol/L Chloride (98-107) mmol/L Carbon Dioxide (21-32) mmol/L Anion Gap (3-11) BUN (6-23) mg/dl Creatinine (0.6-1.4) mg/dl Est Cr Clr Drug Dosing ml/min Est GFR ( Amer) ml/min Est GFR (Non-Af Amer) ml/min BUN/Creatinine Ratio (10-20) Glucose (70-99(Fasting)) mg/dl POC Glucose 133 H 142 H 144 H (70-99) mg/dl Calcium (8.5-10.1) mg/dl 09/03/22 Range/Units 12:38 WBC (4.8-10.8) K/ul RBC (4.70-6.10) M/uL Hgb (14.0-18.0) g/dl Hct (42.0-52.0) % MCV (80.0-100.0) fL MCH (25.0-34.0) pg MCHC (32.0-36.0) g/dL RDW Std Deviation (36.4-46.3) fL RDW Coeff of Sandor (11.5-14.5) % Plt Count (130-400) K/uL MPV (9.4-12.4) fL Sodium (136-145) mmol/L Potassium (3.5-5.1) mmol/L Chloride (98-107) mmol/L Carbon Dioxide (21-32) mmol/L Anion Gap (3-11) BUN (6-23) mg/dl Creatinine (0.6-1.4) mg/dl Est Cr Clr Drug Dosing ml/min Est GFR ( Amer) ml/min Est GFR (Non-Af Amer) ml/min BUN/Creatinine Ratio (10-20) Glucose (70-99(Fasting)) mg/dl POC Glucose 156 H (70-99) mg/dl Calcium (8.5-10.1) mg/dl
[2022-09-04] MEDS: SODIUM CHLORIDE 0.9% 1000ML 1,000 ML IV SCH (18:22)
[2022-09-05] MEDS: INSULIN ASPART PER UNIT SC SCH ×5 (00:27→21:22)
[2022-09-05] MEDS: MEROPENEM 500 MG in SYRINGE 0 ML IV SCH ×4 (04:24→21:23)
[2022-09-05] MEDS: SODIUM CHLORIDE 0.9% 1000ML 1,000 ML IV SCH (04:24)
[2022-09-05] MEDS: FAMOTIDINE 20 MG in SYRINGE 3 ML IV SCH (07:27)
--- NOTE | 2022-09-05 07:53 | Hospitalist Progress Note ---
Date of Service September 05, 2022 Assessment & Plan (1) SBO (small bowel obstruction): Plan: Symptoms improving with the below interventions Continue clear liquid diet today, advance to low fiber diet tomorrow if tolerates without issue Discontinue IV fluids in favor of encouraging oral intake General surgery consulted and appreciate recommendations, have signed off at this time as patient's SBO has significantly improved Zofran as needed for nausea, IV Tylenol for discomfort, no reports of such at this time Resume patient's home medications including those for constipation that he is on regularly at home (2) Catheter-associated urinary tract infection: Plan: History of quadriplegia, with chronic suprapubic catheter changed weekly, due for replacement today Urology consulted and appreciate assistance, suprapubic catheter exchanged 09/05/2022 With mild elevation in WBC count and abdominal pain/pressure on admission (convoluted by SBO, which is also obviously a possible source of abdominal pain) Urine culture 09/06/2022 growing ESBL and Pseudomonas, vancomycin discontinued, continue meropenem (start date 09/03/2022), will continue for at least 7 days total on discharge to facility (3) HTN (hypertension): Plan: Have resumed home medications including amlodipine, hydralazine, lisinopril Repeat BMP tomorrow (4) Diabetes: Plan: Given we are resuming oral intake will initiate basal/bolus insulin, adjusting as necessary based on BSG's (5) Complicated urinary tract infection: Plan: see above (6) History of ESBL E. coli infection: Plan: See above (7) GERD (gastroesophageal reflux disease): Plan: Transition famotidine to home dosing orally (8) Hyponatremia: Plan: Resolved Sodium is 132 on admission, up to 136 with IV fluids and oral intake (9) Morbid obesity with BMI of 40.0-44.9, adult: Plan: Defer management to outpatient primary care provider Plan Continued treatment of SBO and possible UTI, appreciate urology and general surgery consults; anticipate approaching discharge as long as patient continues to tolerate diet advancement Admission and Anticipated Discharge Date Admission Date: September 02, 2022 Subjective Early yesterday evening NG tube accidentally pulled during repositioning, was not replaced per patient request and after discussion with general surgery. No other acute events overnight, no worsening of abdominal pain today per patient. 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 Notes that his suprapubic catheter is not quite draining properly today, due for replacement today. No other complaints today. Review of Systems Review of Systems: All systems reviewed & are unremarkable except as noted in Subjective Physical Exam Constitutional: WD/WN, vitals as above + obese; no acute distress Gastrointestinal (Abdomen): Inspection/Auscultation: + abdomen distended Abdomen soft, nontender Skin: Multiple scattered scaly plaques with areas of coalition over lower abdomen and flanks bilaterally, bilateral lower extremities, lower back. Nonpainful, nonpruritic. Psychiatric: A+Ox3, euthymic affect Genitourinary: Suprapubic catheter intact, with some leakage noted Results & Data Results & Data ([facility]) Vital Signs (Past 12 Hours) Vital Signs Temp Pulse Resp BP Pulse Ox O2 Del Method 09/04/22 22:17 37.0 C 83 18 136/99 94 Room Air PG Care Time/CCT Total # of Minutes Spent Total Time Spent with Patient: Total time spent is greater than 50% in coordination of care (as documented) at patient's floor/unit and/or counseling patient: Coding Level of Care Code 59129 SUB INP/OBS CARE 3/50MIN Diagnoses SBO (small bowel obstruction) K56.609 Catheter-associated urinary tract infection T83.511A; N39.0 HTN (hypertension) I10 Diabetes E11.9 Complicated urinary tract infection N39.0 History of ESBL E. coli infection Z86.19 GERD (gastroesophageal reflux disease) K21.9 Hyponatremia E87.1 Morbid obesity with BMI of 40.0-44.9, adult E66.01; Z68.41
[2022-09-05 08:37] LABS: Hematocrit (blood only) 38.3 % (42.0-52.0); Hemoglobin 12.6 g/dl (14.0-18.0); Mean Corpuscular Hemoglobin 28.3 pg (25.0-34.0); Mean Corpuscular Hgb Conc 32.9 g/dL (32.0-36.0); Mean Corpuscular Volume 85.9 fL (80.0-100.0); Mean Platelet Volume 9.8 fL (9.4-12.4); Platelet Count 331 K/uL (130-400); RDW Coefficient of Variation 16.1 % (11.5-14.5); RDW Standard Deviation 50.4 fL (36.4-46.3); Red Blood Count 4.46 M/uL (4.70-6.10); White Blood Count 8.53 K/ul (4.8-10.8)
[2022-09-05 08:57] LABS: Anion Gap 11 (3-11); Calcium 8.8 mg/dl (8.5-10.1); Carbon Dioxide 24 mmol/L (21-32); Chloride 101 mmol/L (98-107); Potassium 3.5 mmol/L (3.5-5.1); Sodium 136 mmol/L (136-145)
[2022-09-05 09:03] LABS: BUN Creatinine Ratio 18.4 (10-20); Blood Urea Nitrogen 7 mg/dl (6-23); Creatinine Clr Calc Pharmacy 287.7 ml/min; Est GFR (African American) > 150.0 ml/min; Est GFR (Non-African American) 139.5 ml/min; Glucose 139 mg/dl (70-99(Fasting))
[2022-09-05] MEDS ORDERED: methylPREDNISolone 40 MG in SYRINGE 0 ML IV ONE (10:00)
[2022-09-05] MEDS ORDERED: MAGNESIUM HYDROXIDE SUSP 30 ML UDC PO PRN (10:11)
[2022-09-05] MEDS ORDERED: SOD PHOSPHATE/SOD BIPHOSPHATE ENEMA 132 ML BTL PR PRN (10:11)
[2022-09-05] MEDS ORDERED: bisacodyL 10 MG SUPP PR PRN (10:11)
--- NOTE | 2022-09-05 10:12 | Surgery Progress Note ---
Date of Service September 05, 2022 Assessment & Plan (1) SBO (small bowel obstruction): Plan: History of prior episodes however no abdominal surgeries. History of colon distention in past per records. resolving + bowel function no n,v Plan: Advance to clear liquids and then as tolerated to low fiber home oral meds per medicine team continue med management our services signing off Discussed with DR. de luna who agree with above. Admission and Anticipated Discharge Date Admission Date: September 02, 2022 Subjective feeling good NGT fell out yesterday no nausea or belching since had two loose bowel movements yesterday Physical Exam Constitutional: WD/WN, vitals as above + morbidly obese, cooperative and comfortable; no acute distress and not ill appearing Gastrointestinal (Abdomen): Inspection/Auscultation: abdomen normal to inspection and + abdomen distended Percussion/Palpation: abdomen soft; abdomen nontender, no guarding, abdomen not rigid and abdomen not firm Psychiatric: Orientation: alert and oriented x 3 Results & Data ([facility]) Vital Signs (Past 12 Hours) Vital Signs Temp Pulse Pulse Resp BP Pulse Ox O2 Del Method 09/05/22 08:16 36.6 C 94 H 16 161/90 H 95 Room Air 09/04/22 22:17 37.0 C 83 18 136/99 94 Room Air Laboratory Results 09/05/22 09/05/22 09/05/22 Range/Units 08:13 08:13 05:56 WBC 8.53 (4.8-10.8) K/ul RBC 4.46 L (4.70-6.10) M/uL Hgb 12.6 L (14.0-18.0) g/dl Hct 38.3 L (42.0-52.0) % MCV 85.9 (80.0-100.0) fL MCH 28.3 (25.0-34.0) pg MCHC 32.9 (32.0-36.0) g/dL RDW Std Deviation 50.4 H (36.4-46.3) fL RDW Coeff of Sandor 16.1 H (11.5-14.5) % Plt Count 331 (130-400) K/uL MPV 9.8 (9.4-12.4) fL Sodium 136 (136-145) mmol/L Potassium 3.5 (3.5-5.1) mmol/L Chloride 101 (98-107) mmol/L Carbon Dioxide 24 (21-32) mmol/L Anion Gap 11 (3-11) BUN 7 (6-23) mg/dl Creatinine 0.38 L (0.6-1.4) mg/dl Est Cr Clr Drug Dosing 287.7 ml/min Est GFR ( Amer) > 150.0 ml/min Est GFR (Non-Af Amer) 139.5 ml/min BUN/Creatinine Ratio 18.4 (10-20) Glucose 139 H (70-99(Fasting)) mg/dl POC Glucose 124 H (70-99) mg/dl Calcium 8.8 (8.5-10.1) mg/dl 09/05/22 09/04/22 09/04/22 Range/Units 00:10 17:51 11:57 WBC (4.8-10.8) K/ul RBC (4.70-6.10) M/uL Hgb (14.0-18.0) g/dl Hct (42.0-52.0) % MCV (80.0-100.0) fL MCH (25.0-34.0) pg MCHC (32.0-36.0) g/dL RDW Std Deviation (36.4-46.3) fL RDW Coeff of Sandor (11.5-14.5) % Plt Count (130-400) K/uL MPV (9.4-12.4) fL Sodium (136-145) mmol/L Potassium (3.5-5.1) mmol/L Chloride (98-107) mmol/L Carbon Dioxide (21-32) mmol/L Anion Gap (3-11) BUN (6-23) mg/dl Creatinine (0.6-1.4) mg/dl Est Cr Clr Drug Dosing ml/min Est GFR ( Amer) ml/min Est GFR (Non-Af Amer) ml/min BUN/Creatinine Ratio (10-20) Glucose (70-99(Fasting)) mg/dl POC Glucose 114 H 136 H 139 H (70-99) mg/dl Calcium (8.5-10.1) mg/dl 09/04/22 09/04/22 Range/Units 09:45 09:45 WBC 9.31 (4.8-10.8) K/ul RBC 4.22 L (4.70-6.10) M/uL Hgb 12.2 L (14.0-18.0) g/dl Hct 36.4 L (42.0-52.0) % MCV 86.3 (80.0-100.0) fL MCH 28.9 (25.0-34.0) pg MCHC 33.5 (32.0-36.0) g/dL RDW Std Deviation 50.0 H (36.4-46.3) fL RDW Coeff of Sandor 16.1 H (11.5-14.5) % Plt Count 327 (130-400) K/uL MPV 10.2 (9.4-12.4) fL Sodium 135 L (136-145) mmol/L Potassium 3.9 (3.5-5.1) mmol/L Chloride 99 (98-107) mmol/L Carbon Dioxide 26 (21-32) mmol/L Anion Gap 10 (3-11) BUN 5 L (6-23) mg/dl Creatinine 0.35 L (0.6-1.4) mg/dl Est Cr Clr Drug Dosing 312.4 ml/min Est GFR ( Amer) > 150.0 ml/min Est GFR (Non-Af Amer) 144.3 ml/min BUN/Creatinine Ratio 14.3 (10-20) Glucose 153 H (70-99(Fasting)) mg/dl POC Glucose (70-99) mg/dl Calcium 8.9 (8.5-10.1) mg/dl
[2022-09-05] MEDS ORDERED: ACETAMINOPHEN 325 MG TAB PO PRN (10:13)
[2022-09-05] MEDS ORDERED: metHOTREXate sodium 2.5 MG TAB PO SCH (10:15)
[2022-09-05] MEDS: OXYBUTYNIN CHLORIDE 5 MG TAB PO SCH ×2 (11:37→22:12)
[2022-09-05] MEDS: hydrALAZINE HCL 25 MG TAB PO SCH ×2 (11:37→22:13)
[2022-09-05] MEDS: BACLOFEN 10 MG TAB PO SCH ×2 (11:38→22:12)
[2022-09-05] MEDS: FOLIC ACID 1 MG TAB PO SCH (11:40)
[2022-09-05] MEDS: amLODIPine BESYLATE 5 MG TAB PO SCH (12:05)
--- NOTE | 2022-09-05 13:44 | Urology Progress Note ---
Date of Service September 05, 2022 Assessment & Plan (1) Complicated urinary tract infection: (2) Neurogenic bladder: (3) Suprapubic catheter: Plan 52yo/M admitted with SBO, suspected UTI. Urology consulted for suprapubic catheter exchange. - Using sterile technique, 20F suprapubic catheter exchanged at bedside without difficulty. Pt tolerated well. - Continue with routine catheter changes and flushes as previously recommended. - Continue supportive care and antibiotics per primary service. - Plan for outpatient urology follow-up as scheduled. Admission and Anticipated Discharge Date Admission Date: September 02, 2022 Subjective Pt seen and examined at bedside this AM. Awake, resting in bed on arrival. No acute distress. Suprapubic catheter intact, draining clear yellow urine. Review of Systems Constitutional: as per Subjective / HPI Genitourinary: + as per Subjective / HPI Physical Exam Constitutional: No acute distress. Obese. Respiratory: no respiratory distress and no labored breathing Gastrointestinal (Abdomen): Inspection/Auscultation: + abdomen distended Musculoskeletal: Head/Neck/Chest: normocephalic Neurologic: awake Psychiatric: Orientation: alert and oriented x 3 Genitourinary: Suprapubic catheter intact, draining clear yellow urine with sediment in tubing. Using sterile technique, suprapubic catheter was exchanged at bedside without difficulty. Balloon was inflated with 10 mL. Catheter was flushed, patent, and draining. Pt tolerated well. Results & Data ([facility]) Vital Signs (Past 12 Hours) Vital Signs Temp Pulse Pulse Resp BP Pulse Ox O2 Del Method 09/05/22 08:16 36.6 C 94 H 16 161/90 H 95 Room Air 09/04/22 22:17 37.0 C 83 18 136/99 94 Room Air PG Care Time/CCT Total # of Minutes Spent Total Time Spent with Patient: Total time spent is greater than 50% in coordination of care (as documented) at patient's floor/unit and/or counseling patient: Coding Level of Care Code 05784 SUB INP/OBS CARE 2/35MIN Diagnoses Complicated urinary tract infection N39.0 Neurogenic bladder N31.9 Suprapubic catheter Z93.59
[2022-09-05] MEDS: AMMONIUM LACTATE 12% LOTION 225 GM BTL EXT SCH (15:35)
[2022-09-05] MEDS: LANTUS PER UNIT CHARGE SQ SCH (21:22)
[2022-09-05] MEDS: CLOTRIMAZOLE/BETAMETHASONE CR 15 GM TUBE EXT SCH (21:26)
[2022-09-05] MEDS: TERBINAFINE CR 30 GM TUBE EXT SCH (21:27)
[2022-09-05] MEDS: FAMOTIDINE 40 MG TABLET PO SCH (22:12)
[2022-09-05] MEDS: POLYETHYLENE (MIRALAX) 17 GM PACK PO SCH (22:12)
[2022-09-05] MEDS: MAGNESIUM OXIDE 400 MG TAB PO SCH (22:12)
[2022-09-05] MEDS: METHENAMINE HIPPURATE 1 GM TAB PO SCH (22:12)
[2022-09-05] MEDS: ATORVASTATIN 20 MG TAB PO SCH (22:12)
[2022-09-06] MEDS: AMMONIUM LACTATE 12% LOTION 225 GM BTL EXT SCH ×4 (01:05→23:30)
[2022-09-06] MEDS: MEROPENEM 500 MG in SYRINGE 0 ML IV SCH ×4 (04:59→21:34)
[2022-09-06 06:37] LABS: Hematocrit (blood only) 35.4 % (42.0-52.0); Hemoglobin 11.9 g/dl (14.0-18.0); Mean Corpuscular Hemoglobin 28.2 pg (25.0-34.0); Mean Corpuscular Hgb Conc 33.6 g/dL (32.0-36.0); Mean Corpuscular Volume 83.9 fL (80.0-100.0); Mean Platelet Volume 10.3 fL (9.4-12.4); Platelet Count 331 K/uL (130-400); RDW Coefficient of Variation 15.7 % (11.5-14.5); RDW Standard Deviation 47.5 fL (36.4-46.3); Red Blood Count 4.22 M/uL (4.70-6.10); White Blood Count 6.95 K/ul (4.8-10.8)
[2022-09-06 06:53] LABS: Anion Gap 10 (3-11); BUN Creatinine Ratio 12.1 (10-20); Blood Urea Nitrogen 4 mg/dl (6-23); Calcium 8.9 mg/dl (8.5-10.1); Carbon Dioxide 24 mmol/L (21-32); Chloride 101 mmol/L (98-107); Creatinine Clr Calc Pharmacy 331.3 ml/min; Est GFR (African American) > 150.0 ml/min; Est GFR (Non-African American) 147.8 ml/min; Glucose 187 mg/dl (70-99(Fasting)); Potassium 3.5 mmol/L (3.5-5.1); Sodium 135 mmol/L (136-145)
[2022-09-06] MEDS: FOLIC ACID 1 MG TAB PO SCH (07:56)
[2022-09-06] MEDS: BACLOFEN 10 MG TAB PO SCH ×3 (07:56→20:32)
[2022-09-06] MEDS: METHENAMINE HIPPURATE 1 GM TAB PO SCH ×2 (07:56→20:32)
[2022-09-06] MEDS: bisacodyL 10 MG SUPP PR SCH (07:57)
[2022-09-06] MEDS: hydrALAZINE HCL 25 MG TAB PO SCH ×3 (07:57→20:33)
[2022-09-06] MEDS: predniSONE 10 MG TABLET PO SCH (07:58)
[2022-09-06] MEDS: MULTIVITAMIN TAB PO SCH (07:58)
[2022-09-06] MEDS: OXYBUTYNIN CHLORIDE 5 MG TAB PO SCH ×3 (07:58→20:32)
[2022-09-06] MEDS: lisinopril 40 MG TAB PO SCH (07:58)
[2022-09-06] MEDS: amLODIPine BESYLATE 5 MG TAB PO SCH (07:59)
[2022-09-06] MEDS: MAGNESIUM OXIDE 400 MG TAB PO SCH ×2 (07:59→20:31)
[2022-09-06] MEDS: CLOTRIMAZOLE/BETAMETHASONE CR 15 GM TUBE EXT SCH ×2 (08:01→20:34)
[2022-09-06] MEDS: TERBINAFINE CR 30 GM TUBE EXT SCH ×2 (08:02→20:34)
[2022-09-06] MEDS: LANTUS PER UNIT CHARGE SQ SCH ×2 (08:48→21:35)
[2022-09-06] MEDS: INSULIN ASPART PER UNIT SC SCH ×4 (08:49→21:34)
--- NOTE | 2022-09-06 09:27 | Hospitalist Progress Note ---
Date of Service September 06, 2022 Assessment & Plan (1) Catheter-associated urinary tract infection: Plan: History of quadriplegia, with chronic suprapubic catheter changed weekly, replaced 09/05/22 Urology consulted and appreciate assistance with exchange, will have follow up outpatient With mild elevation in WBC count and abdominal pain/pressure on admission (convoluted by SBO, which is also obviously a possible source of abdominal pain) Urine culture 09/06/2022 growing ESBL and Pseudomonas, vancomycin discontinued, continue meropenem (start date 09/03/2022), will continue for at least 7 days total on discharge to facility (2) SBO (small bowel obstruction): Plan: Symptoms improved with NGT, bowel rest, now tolerating liquids and so will advance diet to regular General surgery consulted and appreciate recommendations, have signed off at this time as patient's SBO has significantly improved Zofran as needed for nausea, IV Tylenol for discomfort, no reports of pain (3) HTN (hypertension): Plan: Continue home medications including amlodipine, hydralazine, lisinopril BP normotensive (4) Diabetes: Plan: Basal/bolus insulin for now while admitted, resume home medications on discharge (5) Complicated urinary tract infection: Plan: see above (6) History of ESBL E. coli infection: Plan: See above (7) GERD (gastroesophageal reflux disease): Plan: Continue famotidine daily (8) Hyponatremia: Plan: Resolved, mild on admission (9) Morbid obesity with BMI of 40.0-44.9, adult: Plan: Defer management to outpatient primary care provider Plan Continued treatment of SBO and UTI, appreciate urology and general surgery consults; to complete 7 days Abx (last day Saturday 09/09) Admission and Anticipated Discharge Date Admission Date: September 02, 2022 Subjective No acute events overnight. Tolerating liquids well without issues. No nausea, SOB, chest pain. Reports his skin looks about the same today. Review of Systems Review of Systems: All systems reviewed & are unremarkable except as noted in Subjective Physical Exam Constitutional: WD/WN, vitals as above + obese; no acute distress Gastrointestinal (Abdomen): Inspection/Auscultation: + abdomen distended Abdomen soft, nontender Skin: Multiple scattered scaly plaques with areas of coalition over lower abdomen and flanks bilaterally, bilateral lower extremities, lower back. Nonpainful, nonpruritic. Psychiatric: A+Ox3, euthymic affect Genitourinary: Suprapubic catheter intact, draining clear yellow urine Results & Data Results & Data ([facility]) Vital Signs (Past 12 Hours) Vital Signs Temp Pulse Resp BP Pulse Ox O2 Del Method 09/06/22 08:08 172/92 H 09/06/22 07:36 36.3 C L 73 18 196/99 H 97 Room Air PG Care Time/CCT Total # of Minutes Spent Total Time Spent with Patient: Total time spent is greater than 50% in coordination of care (as documented) at patient's floor/unit and/or counseling patient: Coding Level of Care Code 20924 SUB INP/OBS CARE 3/50MIN Diagnoses Catheter-associated urinary tract infection T83.511A; N39.0 SBO (small bowel obstruction) K56.609 HTN (hypertension) I10 Diabetes E11.9 Complicated urinary tract infection N39.0 History of ESBL E. coli infection Z86.19 GERD (gastroesophageal reflux disease) K21.9 Hyponatremia E87.1 Morbid obesity with BMI of 40.0-44.9, adult E66.01; Z68.41
[2022-09-06] MEDS: ATORVASTATIN 20 MG TAB PO SCH (20:33)
[2022-09-06] MEDS: FAMOTIDINE 40 MG TABLET PO SCH (20:33)
[2022-09-06] MEDS: POLYETHYLENE (MIRALAX) 17 GM PACK PO SCH (20:34)
[2022-09-07] MEDS: MEROPENEM 500 MG in SYRINGE 0 ML IV SCH ×4 (04:56→22:00)
--- NOTE | 2022-09-07 07:58 | Hospitalist Progress Note ---
Date of Service September 07, 2022 Assessment & Plan (1) Catheter-associated urinary tract infection: Plan: History of quadriplegia, with chronic suprapubic catheter changed weekly, replaced 09/05/22 Urology consulted and appreciate assistance with exchange, will have follow up outpatient With mild elevation in WBC count and abdominal pain/pressure on admission (convoluted by SBO, which is also obviously a possible source of abdominal pain) Urine culture 09/06/2022 growing ESBL and Pseudomonas, vancomycin discontinued, continue meropenem (start date 09/03/2022), will continue for at least 7 days total on discharge to facility (2) SBO (small bowel obstruction): Plan: Symptoms improved with NGT, bowel rest, tolerating regular diet General surgery consulted and appreciate recommendations, have signed off at this time as patient's SBO has significantly improved Zofran as needed for nausea, IV Tylenol for discomfort, no reports of pain KUB today with nonspecific bowel gas pattern, no specific step-off point to suggest SBO, continue to monitor given patient is having BMs and no longer having abdominal pressure/fullness that he was having on admission (3) HTN (hypertension): Plan: Continue home medications including amlodipine, hydralazine, lisinopril BP elevated at times to 160s, defer med adjustment to PCP (4) Diabetes: Plan: Basal/bolus insulin for now while admitted, resume home medications on discharge (5) Complicated urinary tract infection: Plan: see above (6) History of ESBL E. coli infection: Plan: See above (7) GERD (gastroesophageal reflux disease): Plan: Continue famotidine daily (8) Hyponatremia: Plan: Resolved, mild on admission (9) Morbid obesity with BMI of 40.0-44.9, adult: Plan: Defer management to outpatient primary care provider Plan Continued treatment of SBO and UTI, appreciate urology and general surgery consults; to complete 7 days Abx (last day Saturday 09/09), anticipate discharge to home facility Thursday/Thursday Admission and Anticipated Discharge Date Admission Date: September 02, 2022 Subjective Patient notes some sweating overnight, did not have fever at that time. He notes that at times he will sweat when he has a problem that would otherwise cause pain if his sensation was intact. He denies pain, SOB. He had two BMs overnight. Review of Systems Review of Systems: All systems reviewed & are unremarkable except as noted in Subjective Physical Exam Constitutional: WD/WN, vitals as above + obese; no acute distress Gastrointestinal (Abdomen): Inspection/Auscultation: + abdomen distended Abdomen soft, nontender Skin: Multiple scattered scaly plaques with areas of coalition over lower abdomen and flanks bilaterally, bilateral lower extremities, lower back. Nonpainful, nonpruritic. Psychiatric: A+Ox3, euthymic affect Genitourinary: Suprapubic catheter intact, draining clear yellow urine Results & Data Results & Data ([facility]) Vital Signs (Past 12 Hours) Vital Signs Temp Pulse Resp BP Pulse Ox O2 Del Method 09/07/22 07:31 36.8 C 79 18 203/96 H 95 Room Air 09/06/22 20:38 36.6 C 79 18 137/80 97 Room Air PG Care Time/CCT Total # of Minutes Spent Total Time Spent with Patient: Total time spent is greater than 50% in coordination of care (as documented) at patient's floor/unit and/or counseling patient: Coding Level of Care Code 31817 SUB INP/OBS CARE 3/50MIN Diagnoses Catheter-associated urinary tract infection T83.511A; N39.0 SBO (small bowel obstruction) K56.609 HTN (hypertension) I10 Diabetes E11.9 Complicated urinary tract infection N39.0 History of ESBL E. coli infection Z86.19 GERD (gastroesophageal reflux disease) K21.9 Hyponatremia E87.1 Morbid obesity with BMI of 40.0-44.9, adult E66.01; Z68.41
[2022-09-07] MEDS: AMMONIUM LACTATE 12% LOTION 225 GM BTL EXT SCH ×3 (08:24→23:47)
[2022-09-07] MEDS: TERBINAFINE CR 30 GM TUBE EXT SCH ×2 (08:24→21:39)
[2022-09-07] MEDS: CLOTRIMAZOLE/BETAMETHASONE CR 15 GM TUBE EXT SCH ×2 (08:25→21:37)
[2022-09-07] MEDS: OXYBUTYNIN CHLORIDE 5 MG TAB PO SCH ×3 (08:25→21:38)
[2022-09-07] MEDS: hydrALAZINE HCL 25 MG TAB PO SCH ×3 (08:26→21:37)
[2022-09-07] MEDS: BACLOFEN 10 MG TAB PO SCH ×3 (08:26→21:37)
[2022-09-07] MEDS: METHENAMINE HIPPURATE 1 GM TAB PO SCH ×2 (08:26→21:38)
[2022-09-07] MEDS: MAGNESIUM OXIDE 400 MG TAB PO SCH ×2 (08:27→21:38)
[2022-09-07] MEDS: lisinopril 40 MG TAB PO SCH (08:27)
[2022-09-07] MEDS: MULTIVITAMIN TAB PO SCH (08:27)
[2022-09-07] MEDS: predniSONE 10 MG TABLET PO SCH (08:27)
[2022-09-07] MEDS: amLODIPine BESYLATE 5 MG TAB PO SCH (08:27)
[2022-09-07] MEDS: FOLIC ACID 1 MG TAB PO SCH (08:27)
[2022-09-07] MEDS: INSULIN ASPART PER UNIT SC SCH ×4 (08:50→21:26)
[2022-09-07] MEDS: LANTUS PER UNIT CHARGE SQ SCH ×2 (08:51→21:26)
--- NOTE | 2022-09-07 10:43 | XRay Report ---
KUB CLINICAL HISTORY: Small bowel obstruction. FINDINGS: An AP, portable, supine abdominal radiograph is compared to study dated 09/02/2022 and correl ated with abdominal CT dated 09/02/2022. There is a nonspecific abdominal bowel gas pattern. There are mildly distended gas-filled loops of small bowel. There is also gaseous distention of the colon. No e vidence of intraperitoneal free air is seen on this supine image. There are no abnormal abdominal aquiles cifications. The skeletal structures are osteopenic and grossly intact. There is a lumbosacral spondy losis. IMPRESSION: Nonspecific abdominal bowel gas pattern as above. Clinical correlation will be required. Electronically signed by: Bartolome Mckay M.D. 09/07/2022 10:42 AM
[2022-09-07] MEDS: ATORVASTATIN 20 MG TAB PO SCH (21:38)
[2022-09-07] MEDS: POLYETHYLENE (MIRALAX) 17 GM PACK PO SCH (21:39)
[2022-09-07] MEDS: FAMOTIDINE 40 MG TABLET PO SCH (21:40)
[2022-09-08] MEDS: MEROPENEM 500 MG in SYRINGE 0 ML IV SCH ×4 (04:29→21:58)
[2022-09-08 06:36] LABS: Hematocrit (blood only) 34.1 % (42.0-52.0); Hemoglobin 11.3 g/dl (14.0-18.0); Mean Corpuscular Hemoglobin 28.3 pg (25.0-34.0); Mean Corpuscular Hgb Conc 33.1 g/dL (32.0-36.0); Mean Corpuscular Volume 85.5 fL (80.0-100.0); Mean Platelet Volume 9.9 fL (9.4-12.4); Platelet Count 341 K/uL (130-400); RDW Coefficient of Variation 16.2 % (11.5-14.5); RDW Standard Deviation 50.5 fL (36.4-46.3); Red Blood Count 3.99 M/uL (4.70-6.10); White Blood Count 7.78 K/ul (4.8-10.8)
[2022-09-08 06:51] LABS: Anion Gap 7 (3-11); BUN Creatinine Ratio 29.3 (10-20); Blood Urea Nitrogen 12 mg/dl (6-23); Calcium 8.4 mg/dl (8.5-10.1); Carbon Dioxide 29 mmol/L (21-32); Chloride 104 mmol/L (98-107); Creatinine Clr Calc Pharmacy 266.7 ml/min; Est GFR (African American) > 150.0 ml/min; Est GFR (Non-African American) 135.2 ml/min; Glucose 224 mg/dl (70-99(Fasting)); Potassium 3.2 mmol/L (3.5-5.1); Sodium 140 mmol/L (136-145)
[2022-09-08] MEDS ORDERED: POTASSIUM CHLORIDE CRTAB 20 MEQ TABCR PO STA (07:44)
[2022-09-08] MEDS: amLODIPine BESYLATE 5 MG TAB PO SCH (08:09)
[2022-09-08] MEDS: BACLOFEN 10 MG TAB PO SCH ×3 (08:10→21:39)
[2022-09-08] MEDS: FOLIC ACID 1 MG TAB PO SCH (08:12)
[2022-09-08] MEDS: hydrALAZINE HCL 25 MG TAB PO SCH ×3 (08:12→21:39)
[2022-09-08] MEDS: lisinopril 40 MG TAB PO SCH (08:15)
[2022-09-08] MEDS: MAGNESIUM OXIDE 400 MG TAB PO SCH ×2 (08:15→21:40)
[2022-09-08] MEDS: MULTIVITAMIN TAB PO SCH (08:16)
[2022-09-08] MEDS: METHENAMINE HIPPURATE 1 GM TAB PO SCH ×2 (08:16→21:41)
[2022-09-08] MEDS: predniSONE 10 MG TABLET PO SCH (08:17)
[2022-09-08] MEDS: OXYBUTYNIN CHLORIDE 5 MG TAB PO SCH ×3 (08:17→21:39)
[2022-09-08] MEDS: bisacodyL 10 MG SUPP PR SCH (08:21)
[2022-09-08] MEDS: LANTUS PER UNIT CHARGE SQ SCH ×2 (09:33→21:52)
[2022-09-08] MEDS: INSULIN ASPART PER UNIT SC SCH ×4 (09:34→21:51)
[2022-09-08] MEDS: AMMONIUM LACTATE 12% LOTION 225 GM BTL EXT SCH ×2 (09:40→17:35)
[2022-09-08] MEDS: TERBINAFINE CR 30 GM TUBE EXT SCH ×2 (09:40→21:42)
[2022-09-08] MEDS: CLOTRIMAZOLE/BETAMETHASONE CR 15 GM TUBE EXT SCH ×2 (09:41→21:43)
--- NOTE | 2022-09-08 12:34 | Hospitalist Progress Note ---
Date of Service September 08, 2022 Assessment & Plan (1) Catheter-associated urinary tract infection: Plan: History of quadriplegia, with chronic suprapubic catheter changed weekly, replaced 09/05/22 Urology consulted and appreciate assistance with exchange, will have follow up outpatient With mild elevation in WBC count and abdominal pain/pressure on admission (convoluted by SBO, which is also obviously a possible source of abdominal pain) Urine culture 09/06/2022 growing ESBL and Pseudomonas, vancomycin discontinued, continue meropenem (start date 09/03/2022), to continue through 09/09 and discharge without antibiotics as long as no worsening of symptoms (2) SBO (small bowel obstruction): Plan: Symptoms improved with NGT, bowel rest, tolerating regular diet without difficulty General surgery consulted and appreciate recommendations, have signed off at this time as patient's SBO has significantly improved Zofran as needed for nausea, IV Tylenol for discomfort, no reports of pain today but with fullness/gas noted KUB 09/07 with nonspecific bowel gas pattern, no specific step-off point to suggest SBO, continue to monitor given patient is having BMs and no longer having abdominal pressure that he was having on admission (3) HTN (hypertension): Plan: Continue home medications including amlodipine, hydralazine, lisinopril BP elevated at times to 160s, defer med adjustment to PCP Hydralazine 10 mg IV every 6 hours as needed for systolic BP >180 (4) Diabetes: Plan: Basal/bolus insulin for now while admitted, resume home medications on discharge (5) Complicated urinary tract infection: Plan: see above (6) History of ESBL E. coli infection: Plan: See above (7) GERD (gastroesophageal reflux disease): Plan: Continue famotidine daily (8) Hyponatremia: Plan: Resolved, mild on admission (9) Morbid obesity with BMI of 40.0-44.9, adult: Plan: Defer management to outpatient primary care provider Plan Continued treatment of SBO and UTI, appreciate urology and general surgery consults; to complete 7 days Abx (last day Saturday 09/09), anticipate discharge to home facility tomorrow Admission and Anticipated Discharge Date Admission Date: September 02, 2022 Subjective Patient without any acute events overnight. He took his bowel medications this morning and is concerned about having a bowel movement on route to his facility. Still with some abdominal fullness, but nowhere near what it was on admission. No other complaints such as chest pain or trouble breathing. Still with elevated blood pressures in the 160s systolic, some elevated higher but in the setting of spasms. Review of Systems Review of Systems: All systems reviewed & are unremarkable except as noted in Subjective Physical Exam Constitutional: WD/WN, vitals as above + obese; no acute distress Gastrointestinal (Abdomen): Inspection/Auscultation: + abdomen distended Abdomen soft, nontender Skin: Multiple scattered scaly plaques with areas of coalition over lower abdomen and flanks bilaterally, bilateral lower extremities, lower back. Nonpainful, nonpruritic. Psychiatric: A+Ox3, euthymic affect Genitourinary: Suprapubic catheter intact, draining clear yellow urine Results & Data Results & Data ([facility]) Vital Signs (Past 12 Hours) Vital Signs Temp Pulse Resp BP Pulse Ox O2 Del Method 09/08/22 07:37 36.5 C 79 16 164/82 H 96 Room Air PG Care Time/CCT Total # of Minutes Spent Total Time Spent with Patient: Total time spent is greater than 50% in coordination of care (as documented) at patient's floor/unit and/or counseling patient: Coding Level of Care Code 92739 SUB INP/OBS CARE 2/35MIN Diagnoses Catheter-associated urinary tract infection T83.511A; N39.0 SBO (small bowel obstruction) K56.609 HTN (hypertension) I10 Diabetes E11.9 Complicated urinary tract infection N39.0 History of ESBL E. coli infection Z86.19 GERD (gastroesophageal reflux disease) K21.9 Hyponatremia E87.1 Morbid obesity with BMI of 40.0-44.9, adult E66.01; Z68.41
[2022-09-08] MEDS ORDERED: hydrALAZINE HCL 20 MG/ML VIAL IV PRN (14:46)
[2022-09-08] MEDS: FAMOTIDINE 40 MG TABLET PO SCH (21:40)
[2022-09-08] MEDS: ATORVASTATIN 20 MG TAB PO SCH (21:41)
[2022-09-08] MEDS: POLYETHYLENE (MIRALAX) 17 GM PACK PO SCH (22:24)
[2022-09-09] MEDS: MEROPENEM 500 MG in SYRINGE 0 ML IV SCH ×3 (04:16→16:33)
[2022-09-09] MEDS: LANTUS PER UNIT CHARGE SQ SCH (08:43)
[2022-09-09] MEDS: MULTIVITAMIN TAB PO SCH (08:44)
[2022-09-09] MEDS: INSULIN ASPART PER UNIT SC SCH ×2 (08:44→12:46)
[2022-09-09] MEDS: OXYBUTYNIN CHLORIDE 5 MG TAB PO SCH ×2 (08:44→12:54)
[2022-09-09] MEDS: predniSONE 10 MG TABLET PO SCH (08:44)
[2022-09-09] MEDS: hydrALAZINE HCL 25 MG TAB PO SCH ×2 (08:45→12:52)
[2022-09-09] MEDS: FOLIC ACID 1 MG TAB PO SCH (08:45)
[2022-09-09] MEDS: METHENAMINE HIPPURATE 1 GM TAB PO SCH (08:45)
[2022-09-09] MEDS: MAGNESIUM OXIDE 400 MG TAB PO SCH (08:45)
[2022-09-09] MEDS: BACLOFEN 10 MG TAB PO SCH ×2 (08:45→12:53)
[2022-09-09] MEDS: lisinopril 40 MG TAB PO SCH (08:45)
[2022-09-09] MEDS: amLODIPine BESYLATE 5 MG TAB PO SCH (08:46)
[2022-09-09] MEDS: TERBINAFINE CR 30 GM TUBE EXT SCH (08:47)
[2022-09-09] MEDS: AMMONIUM LACTATE 12% LOTION 225 GM BTL EXT SCH ×3 (08:47→16:33)
[2022-09-09] MEDS: CLOTRIMAZOLE/BETAMETHASONE CR 15 GM TUBE EXT SCH (08:47)
[2022-09-09 12:55] LABS: BUN Creatinine Ratio 23.1 (10-20); Calcium 8.8 mg/dl (8.5-10.1); Creatinine Clr Calc Pharmacy 210.3 ml/min; Est GFR (African American) 142.1 ml/min; Est GFR (Non-African American) 122.6 ml/min; Magnesium 1.8 mg/dl (1.7-2.4)
[2022-09-09 13:07] LABS: Estimated Average Glucose 192 mg/dl; Hemoglobin A1C 8.3 % (4.5-5.6)
[2022-09-09] MEDS ORDERED: metFORMIN HCL 500 MG TAB PO ONE (15:00)
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
== END 2022-09-09 17:14 | DRG 388 ==
LOC: ED 17:25 → SUATTDRO 22:45 → 3N 22:45

== ENCOUNTER 2023-05-11 21:42 | Inpatient (IN) ==
[2023-05-11] MEDS: SODIUM CHLORIDE 0.9% 1,000 ML IV SCH ×2 (22:14→23:26)
--- NOTE | 2023-05-11 22:29 | Emergency Department Note ---
Impression & Plan Fever, Sepsis, UTI (urinary tract infection), Hypomagnesemia, Elevated lactic acid level, Elevated procalcitonin, Acute hyponatremia ED Provider Note HISTORY OF PRESENT ILLNESS: Patient is a 53-year-old male presenting with fever. Patient was just discharged from [facility] in [place] and sent to [facility] in [place]. He states he was admitted for the last 48 hours secondary to a urinary tract infection. He just got to the nursing facility at 1830 today, and was found to be tachycardic and febrile and sent to our emergency department for further evaluation. Patient was admitted to [facility] for reported urinary tract infection. 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 Patient states he feels generally unwell. He was having "body spasms" earlier this afternoon. Patient denies any chest pain or shortness of breath. ROS: as above PHYSICAL EXAM: Constitutional: Patient appears in no acute distress. HENT: Head: Normocephalic and atraumatic. Eyes: EOMI, PERRL Mouth/Throat: Mucous membranes moist. Neck: Trachea midline. Neck supple. Cardiovascular: Tachycardic with regular rhythm. No murmurs, rubs or gallops. Intact distal pulses. Pulmonary/Chest: No respiratory distress. Breath sounds clear and equal bilaterally. No wheezes or rales. Abdominal: Abdomen soft, no tenderness, rebound or guarding. Musculoskeletal: No edema, tenderness or deformity noted. Skin: Warm and dry. No rash, erythema, pallor or cyanosis Psychiatric: Appropriate mood and affect for situation. Neurological: Alert and keenly responsive. CN II-XII grossly intact, moving all extremities equally and fully. MDM: - Vitals signs showed hypertension, tachycardia and tachypnea - History obtained via patient. Patient presents with fever. Patient was just discharged from inpatient care in [facility] and sent to a longterm. He reports he was admitted for the last 48 hours due to a urinary tract infection. He states that he got to the nursing facility around 1830 today and was found to be tachycardic and febrile and sent to the ER for further evaluation. Patient reports feeling generally unwell. Denies any chest pain or shortness of breath. - Chronic conditions affecting care: HTN; hyponatremia; neurogenic bladder; DM- 2; HLD - Differential diagnoses include, but are not limited to: UTI; pneumonia; electrolyte abnormality; viral syndrome; sepsis - Order placed for continuous cardiac monitoring. At this time, monitor showed rate of 101 bpm with normal sinus rhythm, per my interpretation. - External medical records reviewed. Documentation from patient's group home was reviewed. His discharge summary from [address] [place] [address] was sent with him and it shows that he was admitted for hypercalcemia, hypokalemia and kidney stone. He was discharged on levofloxacin. - EKG reviewed by myself showed normal sinus rhythm. Rate 94 bpm. QTc 430. No acute ischemic changes. - Laboratory workup interpreted by myself showed leukocytosis (WBC 12.55) with left shift; hyponatremia (Na 128); elevated lactate (2.1); elevated anion gap (14); hypomagnesemia (Mg 1.6); elevated procalcitonin (0.97) - VBG normal - CXR negative for pneumonia, per my interpretation - Patient's suprapubic catheter was exchanged. Urine was obtained from the new [place] catheter and showed evidence of infection. - Blood cultures obtained - Patient given 2L NS in ER. Based on ideal body weight, sepsis fluid resuscitation volume should be 1936.2 mL. - Patient reports he has previously grown MRSA and ESBL. He is unsure of the other bacteria he has previously grown in his urine. Empirically started on IV vancomycin and cefepime. - Given 1g IV magnesium for electrolyte replacement. - Discussion was had with customer care team coach about patient's case and need for admission - Hospitalist consulted for admission [facility] 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 coli infection Hyponatremia Neurogenic bladder Acute UTI Complicated UTI (urinary tract infection) Hyponatremia Lactic acidosis Headache UTI (urinary tract infection) due to urinary indwelling catheter Ileus Diarrhea Recurrent UTI (urinary tract infection) Acute UTI Neurogenic bladder Nephrolithiasis Pemphigus foliaceus Bladder stone Osteomyelitis Acute hyponatremia HTN (hypertension) HLD (hyperlipidemia) Pemphigoid Diabetes Hyponatremia Sacral wound Quadriplegia Hypertension Pemphigus foliaceus Suprapubic catheter Surgical History History of hip surgery History of suprapubic catheter Previous back surgery Family History Mother Cancer Father Diabetes Grandfather Diabetes Social History Smoking Status: Never smoker Second Hand Exposure: No; Do You Dip or Chew Tobacco: No; Hx Alcohol Use: No Hx Substance Use: No Preferred Language: Panamanian Communication Ability: Effective Visual Impairment: No Limitations Hearing Ability: Normal Paralegal Specialist Required: No Beliefs That Will Affect Care: None marital status: Single Current Living Situation: [facility] Current Living Situation Comment: Typically lives alone with daily care provider How many Children do You have: 0 Feels Safe at Home: Yes during the past year weight has: decreased > 10 lbs Assistive Devices: Wheelchair Allergies Allergies Allergy/AdvReac Type Severity Reaction Status Date / Time Sulfa (Sulfonamide Allergy Severe Swelling Verified 05/11/23 23:57 Antibiotics) of Lip/Tongue/Throat piperacillin [From Zosyn] Allergy Intermediate Rash Verified 05/11/23 23:57 tazobactam [From Zosyn] Allergy Intermediate Rash Verified 05/11/23 23:57 Home Meds Home Medications Medication Instructions Recorded Confirmed baclofen 10 mg tablet 30 mg PO TID 05/11/18 05/12/23 folic acid 1 mg tablet 1 mg PO DAILY 05/11/18 05/12/23 oxybutynin chloride 5 mg tablet 5 mg PO TID PRN urinary discomfort 05/11/18 05/12/23 famotidine 40 mg tablet 40 mg PO HS 03/30/20 05/12/23 methenamine hippurate 1 gram tablet 1 g PO AMHS 11/05/20 05/12/23 atorvastatin 20 mg tablet 20 mg PO HS 08/27/21 05/12/23 aluminum-mag hydroxide-simethicone 30 ml PO Q6H PRN 09/02/22 05/12/23 200 mg-200 mg-20 mg/5 mL oral susp dyspepsia,indigestion bisacodyl 10 mg rectal suppository 10 mg [place] Q OTHER DAY 09/02/22 05/12/23 (Dulcolax (bisacodyl)) ketoconazole 2 % shampoo 1 ea topical UD 09/02/22 05/12/23 magnesium oxide 400 mg (241.3 mg 400 mg PO AMHS 09/02/22 05/12/23 magnesium) tablet metformin 1,000 mg tablet 1,000 mg PO BIDM 09/02/22 05/12/23 multivitamin 1 tab PO DAILY 09/02/22 05/12/23 polyethylene glycol 3350 17 17 g PO HS 09/02/22 05/12/23 gram/dose oral powder (Miralax) amlodipine 10 mg tablet 10 mg PO DAILY 05/11/23 05/12/23 ascorbic acid (vitamin C) 500 mg 500 mg PO DAILY 05/11/23 05/12/23 tablet ferrous sulfate 325 mg (65 mg 325 mg PO DAILY 05/11/23 05/12/23 iron) tablet guaifenesin 600 mg tablet, 600 mg PO Q12H PRN Cough 05/11/23 05/12/23 extended release 12 hr levofloxacin 750 mg tablet 750 mg PO .EVERY 24 HOURS 05/11/23 05/12/23 lisinopril 20 mg tablet 40 mg PO DAILY 05/11/23 05/12/23 nystatin 100,000 unit/gram topical 1 applic topical BID 05/11/23 05/12/23 powder prednisolone 5 mg tablet 5 mg PO Q OTHER DAY 05/11/23 05/12/23 prednisone 10 mg tablet 10 mg PO Q OTHER DAY 05/11/23 05/12/23 tamsulosin 0.4 mg capsule 0.4 mg PO HS 05/11/23 05/12/23 acetaminophen 325 mg tablet 650 mg PO Q6 PRN Fever Or Pain 05/12/23 05/12/23 clotrimazole-betamethasone 1 1 applic topical BID 05/12/23 05/12/23 %-0.05 % topical cream hydralazine 50 mg tablet 50 mg PO TID 05/12/23 05/12/23 insulin glargine 100 unit/mL (3 33 unit subcut QAM 05/12/23 05/12/23 mL) subcutaneous pen (Lantus Solostar U-100 Insulin) methyl salicylate 15 %-menthol 10 1 applic topical Q12 PRN R upper 05/12/23 05/12/23 % topical cream (Muscle Rub) arm pain triamcinolone acetonide 0.1 % 1 applic topical BID 05/12/23 05/12/23 topical cream Previous Rx's Medication Instructions Recorded methotrexate sodium 2.5 mg tablet 15 mg (6 x 2.5 mg) PO WK #30 tabs 09/09/22 Results & Data (ED) Vital Signs Vital Signs - 24 hr 05/11/23 21:33 05/11/23 21:43 05/11/23 22:12 Temperature 37.4 C Temperature Source Oral Pulse Rate 125 H 107 H Pulse Rate [Apical] Respiratory Rate 25 H Respiratory Effort / Characteristics Non-Labored Spontaneous Respiratory Depth Normal Respiratory Pattern Regular Blood Pressure 140/111 H Blood Pressure [Right Arm] Blood Pressure Mean 120 Blood Pressure Mean [Right Arm] Blood Pressure Position [Right Arm] Pulse Oximetry 98 98 Oxygen Delivery Method Room Air Room Air Sepsis Recent Fever Within 48 Hours Yes Sepsis New/Unexplained Change in Mental Status N/A Sepsis Action Taken by Nursing Physician Notified 05/11/23 23:22 05/12/23 00:51 Temperature 37.0 C Temperature Source Oral Pulse Rate Pulse Rate [Apical] 109 H 125 H Respiratory Rate 22 22 Respiratory Effort / Characteristics Respiratory Depth Respiratory Pattern Blood Pressure Blood Pressure [Right Arm] 163/128 H 150/114 H Blood Pressure Mean Blood Pressure Mean [Right Arm] 139 126 Blood Pressure Position [Right Arm] Sitting Sitting Pulse Oximetry 96 96 Oxygen Delivery Method Room Air Room Air Sepsis Recent Fever Within 48 Hours Sepsis New/Unexplained Change in Mental Status Sepsis Action Taken by Nursing Laboratory Data 05/11/23 21:56 05/11/23 21:56 Lab Results 05/11/23 05/11/23 05/11/23 Range/Units 21:56 23:25 23:35 WBC 12.55 H (4.8-10.8) K/ul RBC 4.05 L (4.70-6.10) M/uL Hgb 12.3 L (14.0-18.0) g/dl Hct 35.9 L (42.0-52.0) % MCV 88.6 (80.0-100.0) fL MCH 30.4 (25.0-34.0) pg MCHC 34.3 (32.0-36.0) g/dL RDW Std Deviation 48.1 H (36.4-46.3) fL RDW Coeff of Sandor 14.8 H (11.5-14.5) % Plt Count 312 (130-400) K/uL MPV 10.7 (9.4-12.4) fL Immature Gran % (Auto) 0.2 % Neut % (Auto) 89.5 % Lymph % (Auto) 3.5 % Dawson % (Auto) 6.3 % Eos % (Auto) 0.1 % Baso % (Auto) 0.4 % Neut # (Auto) 11.23 H (1.40-6.50) K/uL Lymph # (Auto) 0.44 L (1.20-3.40) K/uL Dawson # (Auto) 0.79 H (0.11-0.59) K/uL Eos # (Auto) 0.01 (0.00-0.50) K/uL Baso # (Auto) 0.05 (0.00-0.20) K/uL Immature Gran # (Auto) 0.03 (0.01-0.20) K/uL VBG pH 7.42 H (7.36-7.41) VBG pCO2 29 L (38-50) mmHg VBG pO2 75 mmHg VBG HCO3 19 mmol/L VBG O2 Saturation 96.1 % VBG Base Excess -4.4 mEq/L Sodium 128 L (136-145) mmol/L Potassium 3.5 (3.5-5.1) mmol/L Chloride 94 L (98-107) mmol/L Carbon Dioxide 20 L (21-32) mmol/L Anion Gap 14 H (3-11) BUN 8 (6-23) mg/dl Creatinine 0.58 L (0.6-1.4) mg/dl Est Cr Clr Drug Dosing 175.0 ml/min Est GFR ( Amer) 134.9 ml/min Est GFR (Non-Af Amer) 116.4 ml/min BUN/Creatinine Ratio 13.8 (10-20) Glucose 140 H (70-99(Fasting)) mg/dl Lactate 2.1 H* 1.2 (0.4-2.0) mmol/L Calcium 9.5 (8.6-10.3) mg/dl Magnesium 1.6 L (1.7-2.4) mg/dl Total Bilirubin 0.8 (0.2-1.0) mg/dl Direct Bilirubin 0.1 (0-0.2) mg/dl AST 18 (13-39) U/L ALT 15 (7-52) U/L Alkaline Phosphatase 91 (34-104) U/L Total Protein 6.6 (6.0-8.3) gm/dl Albumin 3.6 (3.4-5.0) gm/dl Procalcitonin 0.97 H (0-0.5) ng/ml Urine Color Urine Appearance (Clear) Urine pH (4.5-7.5) Ur Specific [place] (1.000-1.030) Urine Protein (Negative) Urine Glucose (UA) (Negative) Urine Ketones (Negative) Urine Blood (Negative) Urine Nitrite (Negative) Urine Bilirubin (Negative) Urine Urobilinogen (Negative) Ur Leukocyte Esterase (Negative) Urine WBC (Auto) (0-5) /hpf Urine RBC (Auto) (0-4) /hpf U Hyaline Cast (Auto) (0-5) /lpf U Epithel Cells (Auto) (0-5) /lpf Urine Bacteria (Auto) (Negative) Ur Renal Epithelial Cell 05/12/23 Range/Units 00:43 WBC (4.8-10.8) K/ul RBC (4.70-6.10) M/uL Hgb (14.0-18.0) g/dl Hct (42.0-52.0) % MCV (80.0-100.0) fL MCH (25.0-34.0) pg MCHC (32.0-36.0) g/dL RDW Std Deviation (36.4-46.3) fL RDW Coeff of Sandor (11.5-14.5) % Plt Count (130-400) K/uL MPV (9.4-12.4) fL Immature Gran % (Auto) % Neut % (Auto) % Lymph % (Auto) % Dawson % (Auto) % Eos % (Auto) % Baso % (Auto) % Neut # (Auto) (1.40-6.50) K/uL Lymph # (Auto) (1.20-3.40) K/uL Dawson # (Auto) (0.11-0.59) K/uL Eos # (Auto) (0.00-0.50) K/uL Baso # (Auto) (0.00-0.20) K/uL Immature Gran # (Auto) (0.01-0.20) K/uL VBG pH (7.36-7.41) VBG pCO2 (38-50) mmHg VBG pO2 mmHg VBG HCO3 mmol/L VBG O2 Saturation % VBG Base Excess mEq/L Sodium (136-145) mmol/L Potassium (3.5-5.1) mmol/L Chloride (98-107) mmol/L Carbon Dioxide (21-32) mmol/L Anion Gap (3-11) BUN (6-23) mg/dl Creatinine (0.6-1.4) mg/dl Est Cr Clr Drug Dosing ml/min Est GFR ( Amer) ml/min Est GFR (Non-Af Amer) ml/min BUN/Creatinine Ratio (10-20) Glucose (70-99(Fasting)) mg/dl Lactate (0.4-2.0) mmol/L Calcium (8.6-10.3) mg/dl Magnesium (1.7-2.4) mg/dl Total Bilirubin (0.2-1.0) mg/dl Direct Bilirubin (0-0.2) mg/dl AST (13-39) U/L ALT (7-52) U/L Alkaline Phosphatase (34-104) U/L Total Protein (6.0-8.3) gm/dl Albumin (3.4-5.0) gm/dl Procalcitonin (0-0.5) ng/ml Urine Color Yellow Urine Appearance Clear (Clear) Urine pH 7.0 (4.5-7.5) Ur Specific [place] 1.003 (1.000-1.030) Urine Protein Negative (Negative) Urine Glucose (UA) Negative (Negative) Urine Ketones 1+ H (Negative) Urine Blood 1+ H (Negative) Urine Nitrite Negative (Negative) Urine Bilirubin Negative (Negative) Urine Urobilinogen Negative (Negative) Ur Leukocyte Esterase 2+ H (Negative) Urine WBC (Auto) >30 H (0-5) /hpf Urine RBC (Auto) 0-4 (0-4) /hpf U Hyaline Cast (Auto) 0 (0-5) /lpf U Epithel Cells (Auto) 10-20 H (0-5) /lpf Urine Bacteria (Auto) 1+ H (Negative) Ur Renal Epithelial Cell Not Reportable Administered Medications Vancomycin HCl 2,250 mg/ (Sodium Chloride) 545 mls @ 200 mls/hr IV NOW ONE Stop: 05/12/23 02:33 Last Admin: 05/12/23 00:53 Dose: 200 mls/hr Documented By: Discontinued Medications Sodium Chloride (Nss) 1,000 mls @ 999 mls/hr IV .Q1H1M SAHIL Stop: 05/11/23 23:45 Last Infusion: 05/12/23 00:42 Dose: Infused Documented By: Admin: 05/11/23 23:26 Dose: 999 mls/hr Documented By: Infusion: 05/11/23 23:23 Dose: Infused Documented By: Admin: 05/11/23 22:14 Dose: 999 mls/hr Documented By: QIAN Cefepime HCl (Maxipime) 2,000 mg in 20 mls @ 5 mls/min IV NOW STA; Protocol Stop: 05/11/23 23:53 Last Admin: 05/12/23 00:41 Dose: 5 mls/min Documented By: Discharge Plan Visit Data Chief Complaint: Illness Stated Complaint: Urosepsis, Hypertension ED Provider: Annamaria Conner Discharge Problem: Fever, Sepsis, UTI (urinary tract infection), Hypomagnesemia, Elevated lactic acid level, Elevated procalcitonin, Acute hyponatremia Forms Stand Alone Forms: My [facility] Prescriptions Prescriptions: No Action oxybutynin chloride 5 mg tablet 5 mg PO TID PRN (Reason: urinary discomfort) Rx Instructions: prn on [facility] --routine per [facility] baclofen 10 mg tablet 30 mg PO TID Rx Instructions: take 30 mg for 7 days per [facility] but original order was 25 mg from [facility] folic acid 1 mg tablet 1 mg PO DAILY Rx Instructions: per [facility] famotidine 40 mg tablet 40 mg PO HS atorvastatin 20 mg tablet 20 mg PO HS magnesium oxide 400 mg (241.3 mg magnesium) tablet 400 mg PO AMHS metformin 1,000 mg Tablet 1,000 mg PO BIDM polyethylene glycol 3350 [Miralax] 17 gram/dose Powder 17 g PO HS multivitamin Tablet 1 tab PO DAILY bisacodyl [Dulcolax (bisacodyl)] 10 mg Suppository 10 mg [place] Q OTHER DAY alum-mag hydroxide-simeth 200-200-20 mg/5 mL Suspension 30 ml PO Q6H PRN (Reason: dyspepsia,indigestion) ketoconazole 2 % Shampoo 1 ea TOPICAL UD Rx Instructions: apply to affected areas on abdomen topically every evening shift every MON,WED,FRI for dry skin methotrexate sodium 2.5 mg tablet 15 mg PO WK Qty: 30 0RF Rx Instructions: TAKE SIX TABS (15MG) WEEKLY EVERY THURSDAY. methenamine hippurate 1 gram Tablet 1 g PO AMHS nystatin 100,000 unit/gram Powder 1 applic TOPICAL BID Rx Instructions: take for 14 days per [facility] levofloxacin 750 mg Tablet 750 mg PO .EVERY 24 HOURS Rx Instructions: per [facility] lisinopril 20 mg Tablet 40 mg PO DAILY ascorbic acid (vitamin C) 500 mg Tablet 500 mg PO DAILY guaifenesin 600 mg Tablet Extended Release 12hr 600 mg PO Q12H PRN (Reason: Cough) amlodipine 10 mg tablet 10 mg PO DAILY tamsulosin 0.4 mg Capsule 0.4 mg PO HS prednisolone 5 mg Tablet 5 mg PO Q OTHER DAY ferrous sulfate 325 mg (65 mg iron) Tablet 325 mg PO DAILY prednisone 10 mg Tablet 10 mg PO Q OTHER DAY acetaminophen 325 mg Tablet 650 mg PO Q6 PRN (Reason: Fever Or Pain) hydralazine 50 mg Tablet 50 mg PO TID insulin glargine [Lantus Solostar U-100 Insulin] 100 unit/mL (3 mL) insulin pen 33 unit subcut QAM triamcinolone acetonide 0.1 % Cream 1 applic TOPICAL BID Rx Instructions: apply to legs,arms,abdomen every day and evening shift for rash Muscle Rub 15-10 % Cream 1 applic TOPICAL Q12 PRN (Reason: R upper arm pain) clotrimazole-betamethasone [Lotrisone] 1-0.05 % Cream 1 applic TOPICAL BID Rx Instructions: apply to under abdominal folds every day and evening shift for redness/excoriation Referrals Referrals: [facility] [Primary Care Provider] -
[2023-05-11 22:32] LABS: Basophils # (auto) 0.05 K/uL (0.00-0.20); Basophils % (auto) 0.4 %; Eosinophils # (auto) 0.01 K/uL (0.00-0.50); Eosinophils % (auto) 0.1 %; Hematocrit (blood only) 35.9 % (42.0-52.0); Hemoglobin 12.3 g/dl (14.0-18.0); Immature Granulocytes # (auto) 0.03 K/uL (0.01-0.20); Immature Granulocytes % (auto) 0.2 %; Lymphocytes # (auto) 0.44 K/uL (1.20-3.40); Lymphocytes % (auto) 3.5 %; Mean Corpuscular Hemoglobin 30.4 pg (25.0-34.0); Mean Corpuscular Hgb Conc 34.3 g/dL (32.0-36.0); Mean Corpuscular Volume 88.6 fL (80.0-100.0); Mean Platelet Volume 10.7 fL (9.4-12.4); Monocytes # (auto) 0.79 K/uL (0.11-0.59); Monocytes % (auto) 6.3 %; Neutrophils # (auto) 11.23 K/uL (1.40-6.50); Neutrophils % (auto) 89.5 %; Platelet Count 312 K/uL (130-400); RDW Coefficient of Variation 14.8 % (11.5-14.5); RDW Standard Deviation 48.1 fL (36.4-46.3); Red Blood Count 4.05 M/uL (4.70-6.10); White Blood Count 12.55 K/ul (4.8-10.8)
[2023-05-11 22:33] LABS: Albumin Level 3.6 gm/dl (3.4-5.0); BUN Creatinine Ratio 13.8 (10-20); Bilirubin Direct 0.1 mg/dl (0-0.2); Bilirubin,Total 0.8 mg/dl (0.2-1.0); Calcium 9.5 mg/dl (8.6-10.3); Est GFR (African American) 134.9 ml/min; Est GFR (Non-African American) 116.4 ml/min; Magnesium 1.6 mg/dl (1.7-2.4); Potassium 3.5 mmol/L (3.5-5.1); Total Protein 6.6 gm/dl (6.0-8.3)
[2023-05-11 23:31] LABS: Base Excess VBG -4.4 mEq/L; HCO3 VBG 19 mmol/L; Oxygen Saturation VBG 96.1 %; PCO2 VBG 29 mmHg (38-50); PO2 VBG 75 mmHg; pH VBG 7.42 (7.36-7.41)
[2023-05-11] MEDS ORDERED: CEFEPIME 2,000 MG/20 ML VIAL IV STA (23:50)
[2023-05-11] MEDS ORDERED: VANCOMYCIN CONSULT ACTIVE PRN (23:50)
[2023-05-11] MEDS ORDERED: VANCOMYCIN HCL 2,250 MG in SODIUM CHLORIDE 0.9% 500 ML IV ONE (23:50)
[2023-05-12 01:02] LABS: Appearance Urine Clear (Clear); Bilirubin Urine Negative (Negative); Blood Urine 1+ (Negative); Color Urine Yellow; Glucose Urine UA Negative (Negative); Ketones Urine 1+ (Negative); Leukocyte Esterase Urine 2+ (Negative); Nitrite Urine Negative (Negative); Protein Urine Negative (Negative); Specific Gravity Urine 1.003 (1.000-1.030); Urobilinogen Urine Negative (Negative)
[2023-05-12] MEDS ORDERED: SODIUM CHLORIDE 0.9% 1,000 ML IV ONE (01:28)
[2023-05-12 01:36] LABS: Bacteria Urine Automated 1+ (Negative); Cast Urine Automated 0 /lpf (0-5); RBC Urine Automated 0-4 /hpf (0-4); WBC Urine Automated >30 /hpf (0-5)
[2023-05-12] MEDS: MAGNESIUM SULFATE / D5W 1 GM/100 ML BAG IV SCH ×2 (03:21→04:13)
[2023-05-12] MEDS ORDERED: MEROPENEM 1,000 MG in SYRINGE 0 ML IV STA (03:41)
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
[2023-05-12] MEDS ORDERED: CLOBETASOL PROPIONATE 0.05% CREAM 15 GM TUBE EXT PRN (04:29)
[2023-05-12] MEDS ORDERED: oxyBUTYnin chloride 5 MG TAB PO PRN (04:29)
[2023-05-12] MEDS ORDERED: ALUMINUM/MAGNESIUM/SIMETH (MAALOX MAX) 30 ML UDC PO PRN (05:12)
[2023-05-12] MEDS ORDERED: DEXTROSE 50% 50 ML SYRINGE IV PRN (06:01)
[2023-05-12] MEDS ORDERED: GLUCAGON FOR INJ 1 MG VIAL SQ PRN (06:01)
[2023-05-12] MEDS ORDERED: GLUCOSE 10 TAB/TUBE PO PRN (06:01)
[2023-05-12] MEDS ORDERED: CARBOHYDRATES FOR HYPOGLYCEMIA PO PRN (06:01)
[2023-05-12] MEDS ORDERED: GLUCOSE 40% GEL 15 GM TUBE PO PRN (06:01)
--- NOTE | 2023-05-12 06:54 | XRay Report ---
XR chest 1V portable CLINICAL HISTORY: Sepsis TECHNIQUE: Single frontal radiograph of the chest was obtained. Comparison: Comparison is made to chest radiograph 09/02/2022 FINDINGS: Cervical fixation hardware is seen. Cardiomegaly is noted. The lungs are clear. No evidence of pleura l effusion or pneumothorax. IMPRESSION: No acute abnormalities and in particular no radiographic evidence of pneumonia. ACT 112: Negative or not required by law. Electronically signed by: John Rizzo M.D. 05/12/2023 6:53 AM
[2023-05-12] MEDS ORDERED: bisacodyL 10 MG SUPP PR ONE (07:39)
[2023-05-12 07:52] LABS: Anion Gap 14 (3-11); BUN Creatinine Ratio 13.6 (10-20); Blood Urea Nitrogen 6 mg/dl (6-23); Calcium 8.8 mg/dl (8.6-10.3); Carbon Dioxide 17 mmol/L (21-32); Chloride 101 mmol/L (98-107); Creatinine Clr Calc Pharmacy 239.5 ml/min; Est GFR (African American) > 150.0 ml/min; Est GFR (Non-African American) 130.4 ml/min; Glucose 138 mg/dl (70-99(Fasting)); Potassium 3.3 mmol/L (3.5-5.1); Sodium 132 mmol/L (136-145)
[2023-05-12] MEDS ORDERED: VANCOMYCIN HCL 1,500 MG in SODIUM CHLORIDE 0.9% 500 ML IV SCH ×2 (08:00→16:00)
[2023-05-12] MEDS ORDERED: KETOCONAZOLE~ORDER AWAITING ACTION SCH (08:00)
[2023-05-12] MEDS: TRIAMCINOLONE ACET 0.1% CR 15 GM TUBE TOP SCH ×2 (08:18→21:22)
[2023-05-12] MEDS: CLOTRIMAZOLE/BETAMETHASONE CR 15 GM TUBE EXT SCH ×2 (08:18→20:52)
[2023-05-12] MEDS: ENOXAPARIN INJ 40 MG/0.4 ML SYR SQ SCH (08:18)
[2023-05-12] MEDS: bisacodyL 10 MG SUPP PR SCH (08:18)
[2023-05-12] MEDS: lisinopril 40 MG TAB PO SCH (08:19)
[2023-05-12] MEDS: hydrALAZINE TAB 50 MG TAB PO SCH ×3 (08:19→20:51)
[2023-05-12] MEDS: FOLIC ACID 1 MG TAB PO SCH (08:19)
[2023-05-12] MEDS: BACLOFEN 10 MG TAB PO SCH ×3 (08:19→20:50)
[2023-05-12] MEDS: amLODIPine BESYLATE 5 MG TAB PO SCH (08:19)
[2023-05-12] MEDS: MULTIVITAMIN TAB PO SCH (08:19)
[2023-05-12] MEDS: predniSONE 10 MG TABLET PO SCH (08:19)
[2023-05-12] MEDS: ASCORBIC ACID 500 MG TAB PO SCH (08:19)
[2023-05-12] MEDS: MAGNESIUM OXIDE 400 MG TAB PO SCH ×2 (08:19→20:51)
[2023-05-12] MEDS: FERROUS SULFATE 325 MG TAB PO SCH (08:19)
[2023-05-12 08:23] LABS: Estimated Average Glucose 120 mg/dl; Hemoglobin A1C 5.8 % (4.5-5.6)
[2023-05-12] MEDS: LANTUS PER UNIT CHARGE SQ SCH (08:23)
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
[2023-05-12] MEDS: INSULIN ASPART PER UNIT CHARGE SC SCH ×4 (09:18→20:51)
--- NOTE | 2023-05-12 10:34 | Electrocardiogram Report ---
Test Reason : Blood Pressure : / mmHG Vent. Rate : 094 BPM Atrial Rate : 093 BPM P-R Int : 156 ms QRS Dur : 094 ms QT Int : 344 ms P-R-T Axes : 083 010 057 degrees QTc Int : 430 ms Poor data quality, interpretation may be adversely affected Sinus rhythm Normal ECG When compared with ECG of 02-SEP-2022 18:00, No significant change Confirmed by Eddy Head ([id number]) on 05/12/2023 10:34:40 AM Referred By: Kayla Murphy Confirmed By:Eddy Head
--- NOTE | 2023-05-12 11:53 | Pharmacy Report ---
Pharmacy PK ABX Note - Date of Service May 12, 2023 - Assessment and Plan Assessment 53 year old M receiving vancomycin/meropenem for treatment of complicated UTI. Pertinent microbiologic data includes: HX of E. coli ESBL, MRSA and pseudomonas Urine/Blood culture pending. Patient is quadriplegic so will use caution with interpreting AUC based software and subsequent dosing. Day # 1 of antimicrobial therapy. Plan Vancomycin * Loading dose: 2250 mg IV x 1 given in the ED * Maintenance dose: 1250 mg IV every 8 hours * Regimen is predicted to achieve target AUC/SERGEY of 400-600 mg/L.hr * Random level ordered for: 05/13/23 @0700 Pharmacy will continue to follow and will adjust dose/frequency as necessary. Thank you. Pharmacy has transitioned to AUC monitoring for vancomycin. AUC/SERGEY is the preferred PK/PD target and is associated with decreased risk of nephrotoxicity compared to traditional trough targets.
[2023-05-12] MEDS: MEROPENEM 1,000 MG in SYRINGE 0 ML IV SCH ×2 (13:05→20:49)
[2023-05-12] MEDS ORDERED: MICONAZOLE NITRATE POWDER 85 GM EXT PRN (14:03)
[2023-05-12] MEDS: VANCOMYCIN HCL 1,250 MG in SODIUM CHLORIDE 0.9% 250 ML IV SCH ×2 (15:49→23:50)
[2023-05-12] MEDS ORDERED: GLYCERIN ADULT 12 SUPP/BOX SUPP PR PRN (15:55)
[2023-05-12] MEDS ORDERED: GLYCERIN ADULT 12 SUPP/BOX SUPP PR ONE (15:55)
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
[2023-05-12] MEDS: FAMOTIDINE 40 MG TABLET PO SCH (20:50)
[2023-05-12] MEDS: ATORVASTATIN 20 MG TAB PO SCH (20:50)
[2023-05-12] MEDS: oxyBUTYnin chloride 5 MG TAB PO SCH (20:51)
[2023-05-12] MEDS: TAMSULOSIN HCL 0.4 MG CAP PO SCH (20:51)
[2023-05-12] MEDS: POLYETHYLENE (MIRALAX) 17 GM PACK PO SCH (20:52)
[2023-05-13] MEDS: MEROPENEM 1,000 MG in SYRINGE 0 ML IV SCH (03:18)
[2023-05-13 06:23] LABS: Hemoglobin 11.1 g/dl (14.0-18.0); Mean Corpuscular Hemoglobin 30.4 pg (25.0-34.0); Mean Corpuscular Hgb Conc 34.7 g/dL (32.0-36.0); Mean Corpuscular Volume 87.7 fL (80.0-100.0); Mean Platelet Volume 10.1 fL (9.4-12.4); Platelet Count 283 K/uL (130-400); RDW Coefficient of Variation 14.9 % (11.5-14.5); RDW Standard Deviation 47.7 fL (36.4-46.3); Red Blood Count 3.65 M/uL (4.70-6.10)
[2023-05-13 06:41] LABS: Calcium 8.9 mg/dl (8.6-10.3); Creatinine Clr Calc Pharmacy 234.2 ml/min; Est GFR (African American) 149.7 ml/min; Est GFR (Non-African American) 129.2 ml/min; Magnesium 1.8 mg/dl (1.7-2.4); Phosphorus 2.6 mg/dl (2.5-4.9); Potassium 3.1 mmol/L (3.5-5.1)
[2023-05-13] MEDS ORDERED: POTASSIUM CHLORIDE CRTAB 20 MEQ TABCR PO STA (08:27)
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
[2023-05-13] MEDS: VANCOMYCIN HCL 1,250 MG in SODIUM CHLORIDE 0.9% 250 ML IV SCH ×3 (08:35→23:50)
[2023-05-13] MEDS: hydrALAZINE TAB 50 MG TAB PO SCH ×3 (08:40→20:39)
[2023-05-13] MEDS: MAGNESIUM OXIDE 400 MG TAB PO SCH ×2 (08:41→20:40)
[2023-05-13] MEDS: FOLIC ACID 1 MG TAB PO SCH (08:41)
[2023-05-13] MEDS: oxyBUTYnin chloride 5 MG TAB PO SCH ×3 (08:41→20:40)
[2023-05-13] MEDS: BACLOFEN 10 MG TAB PO SCH ×3 (08:42→20:43)
[2023-05-13] MEDS: amLODIPine BESYLATE 5 MG TAB PO SCH (08:42)
[2023-05-13] MEDS: MULTIVITAMIN TAB PO SCH (08:42)
[2023-05-13] MEDS: FERROUS SULFATE 325 MG TAB PO SCH (08:43)
[2023-05-13] MEDS: lisinopril 40 MG TAB PO SCH (08:43)
[2023-05-13] MEDS: ASCORBIC ACID 500 MG TAB PO SCH (08:43)
[2023-05-13] MEDS: ENOXAPARIN INJ 40 MG/0.4 ML SYR SQ SCH (08:43)
[2023-05-13] MEDS: prednisoLONE sod phosphate 15 MG/5 ML PO SCH (08:44)
[2023-05-13] MEDS: INSULIN ASPART PER UNIT CHARGE SC SCH ×4 (09:24→20:43)
[2023-05-13] MEDS: LANTUS PER UNIT CHARGE SQ SCH (09:24)
--- NOTE | 2023-05-13 10:08 | Pharmacy Report ---
Pharmacy PK ABX Note - Date of Service May 13, 2023 - Assessment and Plan Assessment 53 year old M receiving vancomycin/meropenem for treatment of complicated UTI. Pertinent microbiologic data includes: HX of E. coli ESBL, MRSA and pseudomonas. Urine culture pending, blood cultures x 2 show no growth at 24 hours. Patient is quadriplegic so will use caution with interpreting AUC based software and subsequent dosing. Day # 2 of antimicrobial therapy. Plan Vancomycin * Current regimen: 1250 mg IV every 8 hours * Trough level obtained 05/13/23 resulted as 14 mcg/mL. This is predicted to achieve target AUC/SERGEY of 400-600 mg/L.hr * Predicted AUC at steady state: 480 mg/L.hr * Continue 1250 mg IV every 8 hours * Will repeat level in the next 48-72 hours if therapy is continued and/or change in patient clinical status Meropenem * 500 mg IV q6h - appropriate, no change Pharmacy will continue to follow and will adjust dose/frequency as necessary. Thank you. Pharmacy has transitioned to AUC monitoring for vancomycin. AUC/SERGEY is the preferred PK/PD target and is associated with decreased risk of nephrotoxicity compared to traditional trough targets.
[2023-05-13] MEDS: MEROPENEM 500 MG in SYRINGE 0 ML IV SCH ×3 (13:19→23:49)
[2023-05-13] MEDS: TRIAMCINOLONE ACET 0.1% CR 15 GM TUBE TOP SCH ×2 (13:28→20:48)
[2023-05-13] MEDS: CLOTRIMAZOLE/BETAMETHASONE CR 15 GM TUBE EXT SCH ×2 (13:28→20:48)
--- NOTE | 2023-05-13 13:39 | Urology Progress Note ---
Date of Service May 13, 2023 Assessment & Plan (1) UTI (urinary tract infection): (2) Neurogenic bladder: Plan 53yo/M with PMH of quadriplegia and neurogenic bladder managed with suprapubic catheter admitted with sepsis/UTI. Afebrile and hemodynamically stable. Labs reviewed-WBC 8.10, hemoglobin 11.1, creatinine 0.45. Urine and blood cultures are preliminary no growth. Pt recently admitted at [facility]. UC grew Pseudomonas and Enterococcus faecalis. Discharged home 05/11 on Levaquin 750 x 5 days. Suprapubic catheter was exchanged in the ED 05/12. Draining appropriately urine is clear yellow. No significant leakage noted at time of exam Maintain catheter. Okay to hand irrigate as needed. Continue antibiotics and tailor as culture data becomes available. Urology will follow peripherally. Please contact us with any further questions or concerns. Admission and Anticipated Discharge Date Admission Date: May 12, 2023 Subjective Patient examined at bedside this AM. Awake, sitting up in bed on arrival. No acute distress. Suprapubic catheter intact, draining clear yellow urine. No significant leakage noted at time of exam. No fevers. Review of Systems Constitutional: as per Subjective / HPI Genitourinary: + as per Subjective / HPI Physical Exam Constitutional: no acute distress Respiratory: no respiratory distress and no labored breathing Neurologic: awake Psychiatric: A+Ox3, euthymic affect Genitourinary: Suprapubic catheter intact, draining clear yellow urine. No significant leakage around site noted at time of exam. Results & Data Vital Signs (Past 12 Hours) Vital Signs Temp Pulse Pulse Resp BP BP Pulse Ox 05/13/23 11:31 36.4 C L 72 18 122/69 98 05/13/23 07:36 36.6 C 81 18 133/83 98 05/13/23 07:30 85 05/13/23 03:05 36.6 C 97 H 18 136/75 96 05/13/23 00:55 110 H O2 Del Method 05/13/23 11:31 Room Air 05/13/23 07:36 Room Air 05/13/23 07:30 05/13/23 03:05 Room Air 05/13/23 00:55 PG Care Time/CCT Total # of Minutes Spent Total Time Spent with Patient: Total time spent is greater than 50% in coordination of care (as documented) at patient's floor/unit and/or counseling patient: Coding Level of Care Code 78724 SUB INP/OBS CARE Diagnoses Urinary tract infection associated with catheterization of urinary tract, unspecified indwelling urinary catheter type, initial encounter T83.511A; N39.0 Encounter type: initial encounter Indwelling urinary catheter type: unspecified Urinary tract infection type: catheter-associated UTI Neurogenic bladder N31.9 (1) UTI (urinary tract infection) Encounter type: initial encounter Indwelling urinary catheter type: unspecified Urinary tract infection type: catheter-associated UTI Qualified Code(s): T83.511A - Infection and inflammatory reaction due to indwelling urethral catheter, initial encounter; N39.0 - Urinary tract infection, site not specified
[2023-05-13] MEDS: KETOCONAZOLE 2% SHAMPOO 120 ML BTL EXT SCH (14:02)
[2023-05-13] MEDS: ATORVASTATIN 20 MG TAB PO SCH (20:38)
[2023-05-13] MEDS: FAMOTIDINE 40 MG TABLET PO SCH (20:39)
[2023-05-13] MEDS: TAMSULOSIN HCL 0.4 MG CAP PO SCH (20:40)
[2023-05-13] MEDS: POTASSIUM CHLORIDE CRTAB 20 MEQ TABCR PO SCH (20:43)
[2023-05-13] MEDS: POLYETHYLENE (MIRALAX) 17 GM PACK PO SCH (20:43)
--- OUTSIDE RECORDS SUMMARY | 2023-05-14 | External Medical Summary | Continuity of Care Document ---
Author Name Unknown Organization [facility] [address] [facility] [address] [id number] Care Team Providers Care Nylon Operator Name Role Phone Felyamador Loi Primary Care Physician [phone] Encounter [facility] [place] [id number] Date(s): 02/26/23 - 02/26/23 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 Active Assessment and Plan Extracted from: Title:Clinical Document Author:MD Romero David L Date:02/26/23 OUTPATIENT NOTE Name: MARC PADILLA III Patient Number:1 [id number] : 1970 Date of Service: 02/26/2023 _ Mr Padilla comes in for recheck. His skin has been doing very well. 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 Is maintained with methotrexate 15 mg/week and prednisone 10mg per day. Triamcinolone cream 0.1% is also applied daily to the legs. Physical examination: Is a well-developed well-nourished white male type II skin. Alert and oriented x3. He is a quadriplegic in a confined to a wheelchair. Examination of face ears neck hands arms legs reveals no active lesions. He does have some 2+ pitting edema of the right lower leg and ankle. There is some dry skin on the right mcallister. Impression: #1 pemphigus foliaceous in remission. #2 some mild stasis changes on the right lower leg. Plan: To reduce the prednisone to 10 mg alternating with 5 mg/day. We hope to continue to reduce the prednisone every 2 months via telehealth visit. Triamcinolone cream daily as needed. Continue methotrexate 15 mg/week. Continue folic acid supplements. Blood test follow-ups as per the [place] [facility] physician. Immunizations Given and Recorded Vaccine Date Status Refusal Reason pneumococcal 23-valent vaccine 1 05/15/18 Given 1Early/Late Reason: Other : Patient Care Medications amLODIPine 10 mg oral tablet Start: 05/15/18 6:20:00 EST, 1 tab, PO, Daily Start Date: 05/15/18 Status: Ordered atorvastatin 20 mg oral tablet Start: 05/15/18 6:20:00 EST, 1 tab, PO, qhs Start Date: 05/15/18 Status: Ordered baclofen Start: 05/15/18 6:21:00 EST, 25 mg =, PO, tid Start Date: 05/15/18 Status: Ordered bisacodyl 10 mg rectal suppository Start: 12/02/22 15:02:00 EDT, 1 supp, KS, Daily, PRN: as needed for constipation Start Date: 12/02/22 Status: Ordered chlorthalidone 25 mg oral tablet Start: 06/03/18 16:29:00 EST, 0.5 tab, PO, Daily Start Date: 06/03/18 Status: Ordered cranberry oral tablet Start: 12/02/22 15:01:00 EDT, See Instructions, daily Start Date: 12/02/22 Status: Ordered ertapenem Start: 06/03/18 16:29:00 EST, 1,000 = mg, IV, q24h, Please continue with ertapenem until 06/27/18. Please see facility discharge instructions for weekly labs. Start Date: 06/03/18 Status: Ordered famotidine 40 mg oral tablet Start: 12/02/22 15:18:00 EDT, 1 tab, PO, Daily Start Date: 12/02/22 Status: Ordered ferrous sulfate 325 mg (65 mg elemental iron) oral tablet Start: 06/18/18 10:09:00 EST, 1 tab, PO, Daily Start Date: 06/18/18 Status: Ordered Fleet Enema 7 g-19 g rectal enema Start: 12/02/22 15:04:00 EDT, See Instructions, as needed Start Date: 12/02/22 Status: Ordered Florajen Digestion Start: 06/03/18 16:29:00 EST, 1 cap, PO, Daily Start Date: 06/03/18 Status: Ordered folic acid 1 mg oral tablet Start: 05/15/18 6:22:00 EST, 1 tab, PO, Daily Start Date: 05/15/18 Status: Ordered glipiZIDE 2.5 mg oral tablet, extended release Start: 05/15/18 6:23:00 EST, 1 tab, PO, Daily Start Date: 05/15/18 Status: Ordered hydrALAZINE 50 mg oral tablet Start: 12/02/22 15:17:00 EDT, 1 tab, PO, tid Start Date: 12/02/22 Status: Ordered Klor-Con Start: 06/03/18 16:30:00 EST, 20 mEq =, PO, Daily Start Date: 06/03/18 Status: Ordered Lantus Vial 100 units/mL subcutaneous solution Start: 12/02/22 14:59:00 EDT Start Date: 12/02/22 Status: Ordered lisinopril 40 mg oral tablet Start: 05/15/18 6:23:00 EST, 1 tab, PO, Daily Start Date: 05/15/18 Status: Ordered loperamide 2 mg oral capsule Start: 06/03/18 16:30:00 EST, 1 cap, PO, As indicated, PRN: Diarrhea Start Date: 06/03/18 Status: Ordered magnesium oxide 400 mg (241.3 mg elemental magnesium) oral tablet Start: 12/02/22 15:08:00 EDT, 1 tab, PO, Daily Start Date: 12/02/22 Status: Ordered metFORMIN 500 mg oral tablet, extended release Start: 05/15/18 12:54:00 EST, 2 tab, PO, bid Start Date: 05/15/18 Status: Ordered methenamine hippurate 1 g oral tablet Start: 05/15/18 6:24:00 EST, 1 tab, PO, bid Start Date: 05/15/18 Status: Ordered methotrexate Start: 12/02/22 15:09:00 EDT, 15 mg =, PO, Daily Start Date: 12/02/22 Status: Ordered Milk of Magnesia Start: 12/02/22 15:14:00 EDT Start Date: 12/02/22 Status: Ordered MiraLax oral powder for reconstitution Start: 12/02/22 15:13:00 EDT, 17 g =, PO, Daily Start Date: 12/02/22 Status: Ordered multivitamin Start: 06/18/18 10:10:00 EST, 1 tab, PO, Daily Start Date: 06/18/18 Status: Ordered omeprazole 20 mg oral delayed release capsule Start: 06/18/18 10:10:00 EST, 1 cap, PO, Daily Start Date: 06/18/18 Status: Ordered ondansetron 4 mg oral tablet Start: 12/02/22 15:15:00 EDT, 1 tab, PO, ONCE, PRN: as needed for nausea/vomiting Start Date: 12/02/22 Status: Ordered oxybutynin 5 mg oral tablet Start: 05/15/18 6:25:00 EST, 1 tab, PO, tid, PRN: as needed for urinary discomfort Start Date: 05/15/18 Status: Ordered predniSONE 10 mg oral tablet Start: 12/02/22 15:16:00 EDT, 1 tab, PO, Daily Start Date: 12/02/22 Status: Ordered raNITIdine 150 mg oral capsule Start: 06/18/18 10:10:00 EST, 1 cap, PO, Daily Start Date: 06/18/18 Status: Ordered triamcinolone 0.1% topical cream Start: 12/02/22 15:07:00 EDT, 1 appl, topical, bid, Disp# 454 g, Refills: 3, apply to legs, arms, abdomen Start Date: 12/02/22 Status: Ordered Tums 500 mg oral tablet, chewable Start: 06/03/18 16:29:00 EST, 1 tab, PO, bid, PRN: Dyspepsia Start Date: 06/03/18 Status: Ordered Tylenol 500 mg oral tablet Start: 06/03/18 16:28:00 EST, 2 tab, PO, tid, PRN: Fever/Mild Pain Start Date: 06/03/18 Status: Ordered Vitamin C 500 mg oral tablet Start: 06/03/18 16:29:00 EST, 1 tab, PO, Daily Start Date: 06/03/18 Status: Ordered Vitamin D2 50,000 intl units (1.25 mg) oral capsule Start: 06/18/18 10:11:00 EST, 1 cap, PO, q7days Start Date: 06/18/18 Status: Ordered zinc sulfate 220 mg oral capsule Start: 06/03/18 16:31:00 EST, 1 cap, PO, Daily Start Date: 06/03/18 Status: Ordered Mental Status 02/26/23 Barriers to Learning one year None evide nt Mandatory Health Literacy Documentation Yes Health Literacy Communication Barriers N ever Primary Language Danish Problem List Condition Confirmation Course Effective Dates Status H ealth Status Informant Actinic keratosis Confirmed Active Anemia Confirmed Active Constipation Confirmed Active Dysuria Confirmed Active History of type 2 diabetes mellitus Confirmed Active H/O hyperlipidemia Confirmed Active H/O pemphigus Confirmed Active Hypertension Confirmed Active Recurrent UTI Confirmed Active Nevus Confirmed Active Quadriplegia Confirmed Active Tobacco user Confirmed Active Diagnosis Diagnosis Type Effective Dates Health Status Cl inical Service Informant Pemphigus foliaceus Discharge Diagnosis 02/26/23 Social History Social History Type Response Smoking Status Never smoked cigaret gabe Sex Male Outpatient Note * MD Heather, Mansoor Wilson: PERFORM Event Display: .Outpt Note Authored Date: [id number] OUTPATIENT NOTE Name: MARC PADILLA III Patient Number:1 [id number] : 1970 Date of Service: 02/26/2023 _ Mr Padilla comes in for recheck. His skin has been doing very well. 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 Is maintained with methotrexate 15 mg/week and prednisone 10mg per day. Triamcinolone cream 0.1% is also applied daily to the legs. Physical examination: Is a well-developed well-nourished white male type II skin. Alert and oriented x3. He is a quadriplegic in a confined to a wheelchair. Examination of face ears neck hands arms legs reveals no active lesions. He does have some 2+ pitting edema of the right lower leg and ankle. There is some dry skin on the right mcallister. Impression: #1 pemphigus foliaceous in remission. #2 some mild stasis changes on the right lower leg. Plan: To reduce the prednisone to 10 mg alternating with 5 mg/day. We hope to continue to reduce the prednisone every 2 months via telehealth visit. Triamcinolone cream daily as needed. Continue methotrexate 15 mg/week. Continue folic acid supplements. Blood test follow-ups as per the [place] [facility] physician. Electronic Signature on File Electronically Reviewed/Signed by: Mansoor Romero MD Author Signature Dt/Tm:02/26/2023 09:35 AM Department of Dermatology DLS Patient Care team information Care Team Personnel Name: Aristeo Chung Amy E Position: Pharmacist Member Role: Pharmacy - Lifetime Address: Address: [address] [address] [place] Name: MD Dupree Victor Position: Referring Member Role: Primary Care Provider Address: Address: [address] [place] [address] [address] [place] [address] [place] Name: Bebeto Luciano Position: HIS Supervisor_P Member Role: HIS Lifetime Care Team Related Persons Name: LACEY GARCIA Name: NATACHA PADILLA Address: home No Address Provided
--- OUTSIDE RECORDS SUMMARY | 2023-05-14 | External Medical Summary | Continuity of Care Document ---
Author Name Unknown Organization [facility] [address] [facility] 2 Address [address] [phone] Care Team Providers Care Vulcanizer Operator Name Role Phone Felyamador Loi Primary Care Physician [phone] Encounter [facility] [place] [id number] Date(s): 12/02/22 - 12/02/22 [facility] [address] [facility] [address] [phone] Encounter Diagnosis Pemphigus foliaceus(Discharge Diagnosis) - 12/02/22 Discharge Disposition: Home or Self Care Attending Physician: MD Romero David L Referring Physician: MD Mccurdy Jonathan R Allergies, Adverse Reactions, Alerts Substance Reaction Severity Status piperacillin taken from med list unknown reaction Active sulfa drugs Active Zosyn taken from med list unknown reaction Active tazobactam taken from med list unknown reaction. Active Assessment and Plan Extracted from: Title:Clinical Document Author:MD Romero David L Date:12/02/22 OUTPATIENT NOTE Name: MARC PADILLA III Patient Number:1 [id number] : 1970 Date of Service: 12/02/2022 _ Chief complaint is pemphigus foliaceous. History: Mr Padilla is a 52-year-old quadriplegic comes in with a approximately 20-year history of pemphigus foliaceous. This has been partially controlled with prednisone 10 mg/day and methotrexate 15 mg/week. Now comes in for check of his skin. He does occasionally use clobetasol cream. He is confined to a care home and states his blood tests are routinely checked every few months and everything has remained normal. Medications as per the intake sheet. Medication allergy per the intake sheet. Physical examination: Is a well-developed well-nourished white male type II skin. He is alert and oriented x3. He is confined to a wheelchair. Examination the hands and arms reveal just minimal involvement of the forearms. Is erythematous scaling patches on the abdomen flanks and lower legs. There are no intact vesicles or pustules. Oral mucosa is not involved. Face ears and neck are not involved. The back is not involved. Impression: Partially controlled pemphigus foliaceous. Plan: Continue prednisone 10 mg/day. Continue methotrexate 15 mg/week. We hope to do a slow wean of the prednisone. Triamcinolone cream 0.1% twice daily to all the affected areas. He will return for recheck in 2 months we hope to start the weaning process at that time. Immunizations Given and Recorded Vaccine Date Status [...] PO, tid Start Date: 05/15/18 Status: Ordered betamethasone dipropionate 0.05% topical cream Start: 06/03/18 16:29:00 EST, 1 appl, topical, bid Start Date: 06/03/18 Status: Ordered bisacodyl 10 mg rectal suppository Start: 12/02/22 15:02:00 EDT, 1 supp, [place], Daily, PRN: as needed for constipation Start [...] arms, abdomen Start Date: 12/02/22 Status: Ordered triamcinolone 0.1% topical cream Start: 06/03/18 16:31:00 EST, 1 appl, topical, bid Start Date: 06/03/18 Status: Ordered Tums 500 mg oral tablet, [...] Start Date: 06/03/18 Status: Ordered Mental Status 12/02/22 Barriers to Learning one year None evide nt Mandatory Health Literacy Documentation Yes Health Literacy Communication Barriers N ever Primary Language Guyanese Problem List Condition Confirmation Course Effective Dates [...] inical Service Informant Pemphigus foliaceus Discharge Diagnosis 12/02/22 Social History Social History Type Response Smoking Status Never smoked cigaret gabe Sex Male Outpatient Note * MD Heather, Mansoor Wilson: PERFORM Event Display: .Outpt Note Authored Date: [id number] OUTPATIENT NOTE Name: MARC PADILLA III Patient Number:1 [id number] : 1970 Date of Service: 12/02/2022 _ Chief complaint is pemphigus foliaceous. History: Mr Padilla is a 52-year-old quadriplegic comes in with a approximately 20-year history of pemphigus foliaceous. This has been partially controlled with prednisone 10 mg/day and methotrexate 15 mg/week. Now comes in for check of his skin. He does occasionally use clobetasol cream. He is confined to a care home and states his blood tests are routinely checked every few months and everything has remained normal. Medications as per the intake sheet. Medication allergy per the intake sheet. Physical examination: Is a well-developed well-nourished white male type II skin. He is alert and oriented x3. He is confined to a wheelchair. Examination the hands and arms reveal just minimal involvement of the forearms. Is erythematous scaling patches on the abdomen flanks and lower legs. There are no intact vesicles or pustules. Oral mucosa is not involved. Face ears and neck are not involved. The back is not involved. Impression: Partially controlled pemphigus foliaceous. Plan: Continue prednisone 10 mg/day. Continue methotrexate 15 mg/week. We hope to do a slow wean ofthe prednisone. Triamcinolone cream 0.1% twice daily to all the affected areas. He will return for recheck in 2 months we hope to start the weaning process at that time. Electronic Signature on File CC: Jonatan Mccurdy MD [place] [id number] Electronically Reviewed/Signed by: Mansoor Romero MD Author Signature Dt/Tm:12/02/2022 03:14 PM Department of Dermatology DLS Patient Care team information Care Team Personnel Name: Aristeo Chung Amy E Position: Pharmacist Member Role: Pharmacy - Lifetime Address: Address: [address] [address] [place] Name: MD Joon, Loi Position: Referring Member Role: Primary Care Provider Address: Address: [address] [place] [address] [address] [place] [address] [place] Name: Bebeto Luciano Position: HIS Supervisor_P Member Role: HIS Lifetime Care Team Related Persons Name: LACEY GARCIA Name: NATACHA PADILLA Address: home No Address Provided
[2023-05-14] MEDS: MEROPENEM 500 MG in SYRINGE 0 ML IV SCH ×4 (05:14→22:59)
[2023-05-14 05:51] LABS: Hematocrit (blood only) 33.7 % (42.0-52.0); Hemoglobin 11.4 g/dl (14.0-18.0); Mean Corpuscular Hemoglobin 30.1 pg (25.0-34.0); Mean Corpuscular Hgb Conc 33.8 g/dL (32.0-36.0); Mean Corpuscular Volume 88.9 fL (80.0-100.0); Mean Platelet Volume 9.9 fL (9.4-12.4); Platelet Count 334 K/uL (130-400); RDW Coefficient of Variation 14.7 % (11.5-14.5); RDW Standard Deviation 47.6 fL (36.4-46.3); Red Blood Count 3.79 M/uL (4.70-6.10); White Blood Count 6.62 K/ul (4.8-10.8)
[2023-05-14 06:07] LABS: Alanine Aminotransferase 21 U/L (7-52); Albumin Globulin Ratio 1.2 (0.9-2); Albumin Level 3.3 gm/dl (3.4-5.0); Alkaline Phosphatase 82 U/L (34-104); Anion Gap 8 (3-11); Aspartate Aminotransferase 18 U/L (13-39); BUN Creatinine Ratio 28.2 (10-20); Bilirubin,Total 0.4 mg/dl (0.2-1.0); Blood Urea Nitrogen 11 mg/dl (6-23); Carbon Dioxide 24 mmol/L (21-32); Chloride 104 mmol/L (98-107); Creatinine Clr Calc Pharmacy 270.2 ml/min; Est GFR (African American) > 150.0 ml/min; Globulin 2.7 gm/dl (2.5-4.0); Glucose 172 mg/dl (70-99(Fasting)); Magnesium 1.8 mg/dl (1.7-2.4); Phosphorus 1.8 mg/dl (2.5-4.9); Potassium 3.7 mmol/L (3.5-5.1); Sodium 136 mmol/L (136-145)
[2023-05-14] MEDS: oxyBUTYnin chloride 5 MG TAB PO SCH ×3 (08:59→22:52)
[2023-05-14] MEDS: hydrALAZINE TAB 50 MG TAB PO SCH ×3 (09:00→22:53)
[2023-05-14] MEDS: POTASSIUM CHLORIDE CRTAB 20 MEQ TABCR PO SCH ×2 (09:00→22:59)
[2023-05-14] MEDS: MAGNESIUM OXIDE 400 MG TAB PO SCH ×2 (09:00→22:54)
[2023-05-14] MEDS: FOLIC ACID 1 MG TAB PO SCH (09:01)
[2023-05-14] MEDS: FERROUS SULFATE 325 MG TAB PO SCH (09:01)
[2023-05-14] MEDS: lisinopril 40 MG TAB PO SCH (09:01)
[2023-05-14] MEDS: amLODIPine BESYLATE 5 MG TAB PO SCH (09:01)
[2023-05-14] MEDS: bisacodyL 10 MG SUPP PR SCH (09:01)
[2023-05-14] MEDS: predniSONE 10 MG TABLET PO SCH (09:01)
[2023-05-14] MEDS: MULTIVITAMIN TAB PO SCH (09:01)
[2023-05-14] MEDS: ASCORBIC ACID 500 MG TAB PO SCH (09:01)
[2023-05-14] MEDS: TRIAMCINOLONE ACET 0.1% CR 15 GM TUBE TOP SCH ×2 (09:02→22:52)
[2023-05-14] MEDS: CLOTRIMAZOLE/BETAMETHASONE CR 15 GM TUBE EXT SCH ×2 (09:02→22:52)
[2023-05-14] MEDS: ENOXAPARIN INJ 40 MG/0.4 ML SYR SQ SCH (09:02)
[2023-05-14] MEDS: LANTUS PER UNIT CHARGE SQ SCH (09:08)
[2023-05-14] MEDS: INSULIN ASPART PER UNIT CHARGE SC SCH ×4 (09:08→22:38)
[2023-05-14] MEDS: POT PHOSPHATE MONOBASIC W/ SOD TAB PO SCH ×4 (10:38→22:53)
[2023-05-14] MEDS: BACLOFEN 10 MG TAB PO SCH ×3 (10:38→22:53)
[2023-05-14] MEDS: VANCOMYCIN HCL 1,250 MG in SODIUM CHLORIDE 0.9% 250 ML IV SCH ×3 (10:39→22:59)
--- NOTE | 2023-05-14 10:44 | CT Scan Report ---
CT OF THE ABDOMEN AND PELVIS WITHOUT CONTRAST CLINICAL HISTORY: assess for kidney stones,with UTI/sepsis COMPARISON STUDY: CT of the abdomen and pelvis September 02, 2022. KUB September 07, 2022. TECHNIQUE: Axial images of the abdomen and pelvis were obtained without IV contrast. Images were revi ewed in the axial, sagittal, and coronal planes. Automated exposure control was utilized for the vivi dy. A dose lowering technique was utilized adhering to the principles of ALARA. FINDINGS: No pneumatosis, free air or portal venous gas is present. A 6 x 4 mm proximal right uretera l calculus results in moderate right hydronephrosis. No additional urinary calculi are present. There is no left hydronephrosis. Bladder wall thickening is accentuated by underdistention. Suprapubic cat heter within the bladder is in place. Evaluation of the remainder of the abdomen and pelvis is subopt imal on this unenhanced exam. Liver, spleen, adrenal glands and pancreas are unremarkable. There is m oderate gaseous distention of the sigmoid colon which is redundant. However, this has been shown on ultiple prior studies. There is no significant twisting of the mesentery to suggest volvulus. Moderat e amount of stool within the colon is present. There is no lymphadenopathy. Subcutaneous stranding an d skin thickening of the anterior abdominal wall is noted. This is greater on the right. No fluid col lection is present. There is no soft tissue gas. A moderate T7 compression fracture involving the sup erior endplate is new since CT of September 02, 2022. This is not acute. Old sacral decubitus and left inf erior gluteal ulcers are noted with chronic erosion of the left ischial tuberosity and coccyx. This i s unchanged. No evidence for acute osteomyelitis. No associated fluid collections. Calcific densities adjacent to the greater trochanter of the left hip are chronic. IMPRESSION: 1. 6 mm x 4 mm proximal right ureteral calculus results in moderate right hydronephrosis. No addition al urinary calculi. No left hydronephrosis. Suprapubic catheter in place. 2. Moderate distention of the sigmoid colon which is redundant. This has been shown on multiple prior studies and is likely chronic. No CT evidence for volvulus. 3. Subcutaneous stranding and skin thickening. This could reflect asymmetric edema or cellulitis of t he right anterior abdominal wall. 4. No change in appearance of sacral and inferior left gluteal ulcers with old bony erosions. No acut e osteomyelitis. 5. Subacute to chronic T7 compression fracture. ACT 112: Negative or not required by law. Electronically signed by: Mingo Ko M.D. 05/14/2023 10:43 AM
--- NOTE | 2023-05-14 13:42 | Urology Progress Note ---
<Statement entered by Cecil Maldonado MD - 05/14/23 17:20> I have discussed Mr. Henry's case with AXEL Lopes and agree with the above documentation. CT scan demonstrates a right ureteral stone. In the setting of suspected urinary tract infection, he merits cystoscopy, retrograde pyelogram and right ureteral stent placement to ensure that he has adequate neema inage of the upper urinary tracts. I discussed risks and benefits of the surgery with the patient including risks of bleeding, infection, inability to place stent, need for additional procedures. He expressed understanding and willingness to proceed with surgery. -Cecil Maldonado MD. Date of Service May 14, 2023 Assessment & Plan (1) UTI (urinary tract infection): (2) Neurogenic bladder: (3) Ureterolithiasis: Plan 53yo/M with PMH of quadriplegia and neurogenic bladder managed with suprapubic catheter admitted with sepsis/UTI. Afebrile and hemodynamically stable. Labs reviewed-WBC 6.62, hemoglobin 11.4, creatinine 0.39. Urine culture 05/12 negative. Blood cultures preliminary no growth x48 hours. Pt recently admitted at [facility]. UC grew Pseudomonas and Enterococcus faecalis. On IV Vanco and Meropenem. Suprapubic catheter was exchanged in the ED 05/12. Draining appropriately urine is clear yellow. CT abd pelvis today demonstrated a 6 mm x 4 mm proximal right ureteral calculus resulting in moderate right hydronephrosis. We discussed acute stone management with cystoscopy and stent placement. Ureteral stents were discussed as well as postoperative issues and pain management. He is aware a second procedure will be needed for stone treatment after the infection has been treated. All questions were answered. Plan to proceed to OR today for cystoscopy, right retrograde pyelogram, right ureteral stent placement with Dr. Maldonado. Risks and benefits to be reviewed with patient by Dr. Maldonado. Keep NPO. Continue antibiotics. Urology will follow. Admission and Anticipated Discharge Date Admission Date: May 12, 2023 Subjective Patient examined at bedside this afternoon. Awake, sitting up in bed on arrival. No acute distress. Had breakfast around 9 AM. Suprapubic catheter intact and draining clear yellow urine. No fevers. Review of Systems Constitutional: as per Subjective / HPI Gastrointestinal: as per Subjective / HPI Genitourinary: + as per Subjective / HPI Physical Exam Constitutional: no acute distress Respiratory: no respiratory distress and no labored breathing Neurologic: awake Psychiatric: A+Ox3, euthymic affect Genitourinary: Suprapubic catheter intact, draining clear yellow urine. Results & Data Vital Signs (Past 12 Hours) Vital Signs Temp Pulse Pulse Resp BP Pulse Ox O2 Del Method 05/14/23 13:00 36.8 C 98 H 20 148/90 H 98 Room Air 05/14/23 11:44 36.7 C 88 18 123/85 98 Room Air 05/14/23 11:08 Room Air 05/14/23 07:55 36.6 C 72 17 133/82 97 Room Air 05/14/23 07:00 72 05/14/23 03:17 36.8 C 88 18 146/80 H 96 Room Air PG Care Time/CCT Total # of Minutes Spent Total Time Spent with Patient: Total time spent is greater than 50% in coordination of care (as documented) at patient's floor/unit and/or counseling patient: Coding Level of Care Code 89294 SUB INP/OBS CARE 2/35MIN Diagnoses Urinary tract infection associated with catheterization of urinary tract, unspecified indwelling urinary catheter type, initial encounter T83.511A; N39.0 Encounter type: initial encounter Indwelling urinary catheter type: unspecified Urinary tract infection type: catheter-associated UTI Neurogenic bladder N31.9 Ureterolithiasis N20.1 (1) UTI (urinary tract infection) Encounter type: initial encounter Indwelling urinary catheter type: unspecified Urinary tract infection type: catheter-associated UTI Qualified Code(s): T83.511A - Infection and inflammatory reaction due to indwelling urethral catheter, initial encounter; N39.0 - Urinary tract infection, site not specified
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
[2023-05-14] MEDS: D5W AND 1/2NSS 1,000 ML IV SCH (14:26)
--- NOTE | 2023-05-14 20:07 | Anesthesiology Consultation ---
Date of Service May 14, 2023 Assessment & Plan ASA [id number] Proposed Anesthesia Anesthesia Type: MAC Risk / Benefits Reviewed With: PT / POA / Parent / Guardian, Accepts Plan and Informed Consent Obtained History Surgery Operation Date: 05/14/23 16:00 Proposed Procedures p Cystoscopy Right Retrograde Pyelogram with Stent Placement - Cecil Maldonado MD Height/Weight Height: 5 ft 7 in Weight: 118.9 kg Allergies Allergy/AdvReac Type Severity Reaction Status Date / Time Sulfa (Sulfonamide Allergy Severe Swelling Verified 05/11/23 23:57 Antibiotics) of Lip/Tongue/Throat piperacillin [From Zosyn] Allergy Intermediate Rash Verified 05/11/23 23:57 tazobactam [From Zosyn] Allergy Intermediate Rash Verified 05/11/23 23:57 Medications Home Medications Medication Instructions Recorded Confirmed Last Taken baclofen 10 mg tablet 30 mg PO TID 05/11/18 05/12/23 02/09/22 folic acid 1 mg tablet 1 mg PO DAILY 05/11/18 05/12/23 02/09/22 oxybutynin chloride 5 mg tablet 5 mg PO TID PRN urinary discomfort 05/11/18 05/12/23 02/09/22 famotidine 40 mg tablet 40 mg PO HS 03/30/20 05/12/23 02/08/22 methenamine hippurate 1 gram tablet 1 g PO AMHS 11/05/20 05/12/23 02/09/22 atorvastatin 20 mg tablet 20 mg PO HS 08/27/21 05/12/23 02/09/22 aluminum-mag hydroxide-simethicone 30 ml PO Q6H PRN 09/02/22 05/12/23 Unknown 200 mg-200 mg-20 mg/5 mL oral susp dyspepsia,indigestion bisacodyl 10 mg rectal suppository 10 mg [place] Q OTHER DAY 09/02/22 05/12/23 Unknown (Dulcolax (bisacodyl)) ketoconazole 2 % shampoo 1 ea topical UD 09/02/22 05/12/23 Unknown magnesium oxide 400 mg (241.3 mg 400 mg PO AMHS 09/02/22 05/12/23 Unknown magnesium) tablet metformin 1,000 mg tablet 1,000 mg PO BIDM 09/02/22 05/12/23 Unknown multivitamin 1 tab PO DAILY 09/02/22 05/12/23 Unknown polyethylene glycol 3350 17 17 g PO HS 09/02/22 05/12/23 Unknown gram/dose oral powder (Miralax) methotrexate sodium 2.5 mg tablet 15 mg (6 x 2.5 mg) PO WK #30 tabs 09/09/22 05/12/23 02/07/22 amlodipine 10 mg tablet 10 mg PO DAILY 05/11/23 05/12/23 Unknown ascorbic acid (vitamin C) 500 mg 500 mg PO DAILY 05/11/23 05/12/23 Unknown tablet ferrous sulfate 325 mg (65 mg 325 mg PO DAILY 05/11/23 05/12/23 Unknown iron) tablet guaifenesin 600 mg tablet, 600 mg PO Q12H PRN Cough 05/11/23 05/12/23 Unknown extended release 12 hr levofloxacin 750 mg tablet 750 mg PO .EVERY 24 HOURS 05/11/23 05/12/23 Unknown lisinopril 20 mg tablet 40 mg PO DAILY 05/11/23 05/12/23 Unknown nystatin 100,000 unit/gram topical 1 applic topical BID 05/11/23 05/12/23 Unknown powder prednisolone 5 mg tablet 5 mg PO Q OTHER DAY 05/11/23 05/12/23 Unknown prednisone 10 mg tablet 10 mg PO Q OTHER DAY 05/11/23 05/12/23 Unknown tamsulosin 0.4 mg capsule 0.4 mg PO HS 05/11/23 05/12/23 Unknown acetaminophen 325 mg tablet 650 mg PO Q6 PRN Fever Or Pain 05/12/23 05/12/23 Unknown clotrimazole-betamethasone 1 1 applic topical BID 05/12/23 05/12/23 Unknown %-0.05 % topical cream hydralazine 50 mg tablet 50 mg PO TID 05/12/23 05/12/23 Unknown insulin glargine 100 unit/mL (3 33 unit subcut QAM 05/12/23 05/12/23 Unknown mL) subcutaneous pen (Lantus Solostar U-100 Insulin) methyl salicylate 15 %-menthol 10 1 applic topical Q12 PRN R upper 05/12/23 05/12/23 Unknown % topical cream (Muscle Rub) arm pain triamcinolone acetonide 0.1 % 1 applic topical BID 05/12/23 05/12/23 Unknown topical cream Active Medications Generic Name Dose Route Start Last Admin Trade Name Freq PRN Reason Stop Dose Admin Al Hydrox/Mg Hydrox/Simethicone 30 ml 05/12/23 05:12 05/12/23 06:28 Aluminum/Magnesium/Simeth (Maalox Max) 30 Ml Udc PO 06/11/23 05:11 30 ml Q6H PRN Administration dyspepsia,indigestion Amlodipine Besylate 10 mg 05/12/23 09:00 05/14/23 09:01 Amlodipine Besylate 5 Mg Tab PO 06/11/23 08:59 10 mg DAILY SAHIL Administration Ascorbic Acid 500 mg 05/12/23 09:00 05/14/23 09:01 Ascorbic Acid 500 Mg Tab PO 06/11/23 08:59 500 mg DAILY SAHIL Administration Atorvastatin Calcium 20 mg 05/12/23 21:00 05/13/23 20:38 Atorvastatin 20 Mg Tab PO 06/11/23 20:59 20 mg HS SAHIL Administration Baclofen 30 mg 05/12/23 09:00 05/14/23 14:40 Baclofen 10 Mg Tab PO 06/11/23 08:59 30 mg TID SAHIL Administration Betamethasone/Clotrimazole 1 appln 05/12/23 09:00 05/14/23 09:02 Clotrimazole/Betamethasone Cr 15 Gm Tube EXT 06/11/23 08:59 1 appln BID SAHIL Administration Bisacodyl 10 mg 05/12/23 09:00 05/14/23 09:01 Bisacodyl 10 Mg Supp [place] 06/11/23 08:59 10 mg Q2D SAHIL Administration Enoxaparin Sodium 40 mg 05/12/23 09:00 05/14/23 09:02 Enoxaparin Inj 40 Mg/0.4 Ml Syr SQ 06/11/23 08:59 40 mg QAM SAHIL Administration Famotidine 40 mg 05/12/23 21:00 05/13/23 20:39 Famotidine 40 Mg Tablet PO 06/11/23 20:59 40 mg HS SAHIL Administration Ferrous Sulfate 325 mg 05/12/23 09:00 05/14/23 09:01 Ferrous Sulfate 325 Mg Tab PO 06/11/23 08:59 325 mg DAILY SAHIL Administration Folic Acid 1 mg 05/12/23 09:00 05/14/23 09:01 Folic Acid 1 Mg Tab PO 06/11/23 08:59 1 mg DAILY SAHIL Administration Hydralazine HCl 50 mg 05/12/23 09:00 05/14/23 14:41 Hydralazine Tab 50 Mg Tab PO 06/11/23 08:59 50 mg TID SAHIL Administration Vancomycin HCl 1,250 mg/ 275 mls @ 200 mls/hr 05/12/23 16:00 05/14/23 18:20 Sodium Chloride IV 05/21/23 23:59 200 mls/hr Q8H SAHIL Administration Meropenem 500 mg/ Syringe 10 mls @ 2 mls/min 05/13/23 12:00 05/14/23 17:59 IV 05/22/23 11:59 2 mls/min Q6H SAHIL Administration Protocol Dextrose/Sodium Chloride 1,000 mls @ 70 mls/hr 05/14/23 13:45 05/14/23 14:26 D5w And 1/2nss IV 06/13/23 13:44 70 mls/hr .[id number] SAHIL Administration Insulin Aspart 0 units 05/12/23 07:30 05/14/23 17:46 Insulin Aspart Per Unit Charge SC 06/11/23 07:29 Not Given ACHS [facility] Insulin Glargine 33 units 05/12/23 09:00 05/14/23 09:08 Lantus Per Unit Charge SQ 06/11/23 08:59 33 units QAM [facility] Administration Ketoconazole 1 appln 05/13/23 09:00 05/13/23 14:02 Ketoconazole 2% Shampoo 120 Ml Btl EXT 06/12/23 08:59 Not Given [email or web address] [facility] Lisinopril 40 mg 05/12/23 09:00 05/14/23 09:01 Lisinopril 40 Mg Tab PO 06/11/23 08:59 40 mg DAILY SAHIL Administration Magnesium Oxide 400 mg 05/12/23 09:00 05/14/23 09:00 Magnesium Oxide 400 Mg Tab PO 06/11/23 08:59 400 mg AMHS SAHIL Administration Miconazole Nitrate 1 appln 05/12/23 14:03 05/14/23 12:36 Miconazole Nitrate Powder 85 Gm EXT 06/11/23 14:02 1 appln PRN PRN Administration Affected Skin Folds Multivitamins 1 tab 05/12/23 09:00 05/14/23 09:01 Multivitamin Tab PO 06/11/23 08:59 1 tab DAILY SAHIL Administration Oxybutynin Chloride 5 mg 05/12/23 21:00 05/14/23 14:42 Oxybutynin Chloride 5 Mg Tab PO 06/11/23 20:59 5 mg TID SAHIL Administration Polyethylene Glycol 17 gm 05/12/23 21:00 05/13/23 20:43 Polyethylene (Miralax) 17 Gm Pack PO 06/11/23 20:59 17 gm HS SAHIL Administration Potassium Chloride 20 meq 05/13/23 21:00 05/14/23 09:00 Potassium Chloride Crtab 20 Meq Tabcr PO 05/14/23 21:01 20 meq BID SAHIL Administration Potassium Phosphate 2 tab 05/14/23 09:00 05/14/23 16:51 Pot Phosphate Monobasic W/ Sod Tab PO 05/14/23 21:01 Not Given QID SAHIL Prednisolone Sodium Phosphate 5 mg 05/13/23 09:00 05/13/23 08:44 Prednisolone Sod Phosphate 15 Mg/5 Ml PO 06/12/23 08:59 5 mg Q2D SAHIL Administration Prednisone 10 mg 05/12/23 09:00 05/14/23 09:01 Prednisone 10 Mg Tablet PO 06/11/23 08:59 10 mg Q2D SAHIL Administration Tamsulosin HCl 0.4 mg 05/12/23 21:00 05/13/23 20:40 Tamsulosin Hcl 0.4 Mg Cap PO 06/11/23 20:59 0.4 mg HS SAHIL Administration Triamcinolone Acetonide 1 appln 05/12/23 09:00 05/14/23 09:02 Triamcinolone Acet 0.1% Cr 15 Gm Tube TOP 06/11/23 08:59 1 appln BID SAHIL Administration NPO Date Last Intake of Fluids: 05/14/23 Time Last Intake of Fluids: 10:00 Date Last Intake of Solids: 05/14/23 Time Last Intake of Solids: 08:30 Past Medical History Medical History (Updated 05/14/23 @ 13:45 by Charisma Hanson MD) Diabetes HTN (hypertension) HLD (hyperlipidemia) GERD (gastroesophageal reflux disease) Small bowel obstruction Catheter-associated urinary tract infection Morbid obesity with BMI of 40.0-44.9, adult 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 coli infection Hyponatremia Neurogenic bladder Acute UTI Complicated UTI (urinary tract infection) Hyponatremia Lactic acidosis Headache UTI (urinary tract infection) due to urinary indwelling catheter Ileus Diarrhea Recurrent UTI (urinary tract infection) Acute UTI Neurogenic bladder Nephrolithiasis Pemphigus foliaceus Bladder stone Osteomyelitis Acute hyponatremia Pemphigoid Hyponatremia Sacral wound Quadriplegia Hypertension Pemphigus foliaceus Suprapubic catheter Exercise / Class Metabolic Activity II 4-5 Yardwork/Stairs/Walk up hill Past Family History Family History Mother Cancer Father Diabetes Grandfather Diabetes Past Surgical History Surgical History History of hip surgery History of suprapubic catheter Previous back surgery Past Anesthesia History No Hx of Anesthesia Complications and No Family Hx of Anesthesia Complications History of PONV No Hx of PONV and No Hx of Motion Sickness Social History Smoking Status: Never smoker tobacco type: smokeless tobacco Do You Dip or Chew Tobacco: No Hx Alcohol Use: No Hx Substance Use: No substance use type: does not use Review of Systems denies fever/cough/ colds/ chest pain/ SOB/ MAREK denies MAREK Physical Exam Vital Signs Last Vital Signs Temp 36.7 C 05/14/23 18:59 Pulse 91 H 05/14/23 18:59 Resp 18 05/14/23 18:59 BP 127/98 05/14/23 18:59 Pulse Ox 96 05/14/23 18:59 O2 Del Method Room Air 05/14/23 18:59 ENMT Mouth: + poor dentition; no TMJ abnormality and no dentition abnormality Thyromental Distance: > or= 3.5 Finger Breadths Mallampati Class: IV Neck neck extension not limited Respiratory normal respiratory effort; no respiratory distress Auscultation: lungs clear to auscultation bilaterally Cardiovascular Rate/Rhythm: regular rate and regular rhythm Neurologic moves all extremities Psychiatric Orientation: alert and oriented x 3 Testing Laboratory Results 05/14/23 05:24 05/14/23 05:24 Hemoglobin A1c 5.8 % (4.5-5.6) H 05/12/23 06:41 Urine Color Yellow 05/12/23 00:43 Urine Appearance Clear (Clear) 05/12/23 00:43 Urine pH 7.0 (4.5-7.5) 05/12/23 00:43 Ur Specific [place] 1.003 (1.000-1.030) 05/12/23 00:43 Urine Protein Negative (Negative) 05/12/23 00:43 Urine Glucose (UA) Negative (Negative) 05/12/23 00:43 Urine Ketones 1+ (Negative) H 05/12/23 00:43 Urine Nitrite Negative (Negative) 05/12/23 00:43 Ur Leukocyte Esterase 2+ (Negative) H 05/12/23 00:43 Urine WBC (Auto) >30 /hpf (0-5) H 05/12/23 00:43 Urine RBC (Auto) 0-4 /hpf (0-4) 05/12/23 00:43 U Hyaline Cast (Auto) 0 /lpf (0-5) 05/12/23 00:43 U Epithel Cells (Auto) 10-20 /lpf (0-5) H 05/12/23 00:43 Urine Bacteria (Auto) 1+ (Negative) H 05/12/23 00:43 05/12/23 00:43 Urine Culture - Final Urine,Clean Catch No growth - less than 1,000 colonies/mL. 05/11/23 23:25 Aerobic Blood Culture - Preliminary Blood No growth in Aerobic bottle after 48 hours. Anaerobic Blood Culture - Preliminary No growth in Anaerobic bottle after 48 hours. 05/11/23 21:56 Aerobic Blood Culture - Preliminary Blood No growth in Aerobic bottle after 48 hours. Anaerobic Blood Culture - Preliminary No growth in Anaerobic bottle after 48 hours. 05/14/23 05/14/23 05/14/23 17:15 13:53 12:09 POC Glucose 113 H 99 91
[2023-05-14] MEDS ORDERED: PROPOFOL IV EMULSION 10 MG/ML 20 ML VIAL IV ONE (21:04)
[2023-05-14] MEDS ORDERED: MIDAZOLAM HCL 1 MG/ML 2ML VIAL ONE (21:04)
[2023-05-14] MEDS ORDERED: fentaNYL citrate PF 100 MCG/2 ML VIAL ONE (21:12)
--- NOTE | 2023-05-14 21:47 | Operative Report ---
PG Post Operative Report Pre & Post Diagnosis Operation Date: 05/14/23 16:00 Pre-Op Diagnosis: FEBRILE ILLNESS, urinary tract infection, right ureteral stone Post-Op Diagnosis: FEBRILE ILLNESS, urinary tract infection, right ureteral stone I identified the patient and participated in the time-out.: Yes Procedure Operation Date: 05/14/23 16:00 Cystoscopy, right retrograde pyelogram, right ureteral stent placement Surgeon Cecil Maldonado MD Health Education Director None Estimated Blood Loss 5 Findings Consistent with Post-Op Diagnosis Specimens None Drains 6 respiratory sick centimeter double-J ureteral stent in the right ureter Anesthesia Type MAC Complications none Disposition Accompanied Patient To Recovery: Yes Disposition: Recovery Room Indications This is a 53-year-old male with history of neurogenic bladder. He has been recently admitted to the hospital with suspected urinary tract infection. He was also found on CT scan to have a right ureteral stone. He presents to the OR today for right ureteral stent placement to decompress the upper tract. Description of Procedure The patient was identified in the holding area and informed consent was confirmed. He was marked on the right side, then was taken to the operating room where anesthesia was initiated. He was placed in the dorsal lithotomy position with all pressure points appropriately padded. He was prepped and draped in the usual sterile fashion and a preoperative timeout was performed. On inspection, he had some rigidity of the lower extremities as well as some skin breakdown in the perineal and buttock areas. His suprapubic tube was clamped. A well-lubricated cystoscope was inserted per urethra and panendoscopy was performed. The pendulous solution was largely normal. There were some thin circumferential bands consistent with early stricture formation. His prostate was somewhat enlarged with friable tissue. As I tried to make the ankle up to the bladder, there was false passage formed on the posterior wall of the prostate. Repositioned the patient further down the bed to allow approach from a sharper angle. At this point I was able to advance the cystoscope to the bladder. Survey of the bladder was able to identify the right ureteral orifice. A 5 [place] open-ended catheter was inserted and used to intubate the right ur eteral orifice. A retrograde pyelogram was performed using Cystografin. The distal ureter was normal in course and caliber. To minimize pyelovenous backflow I did not aggressively instill contrast to the upper part of the urinary tract. A 0.038 inch zip wire was advanced up to the kidney under fluoroscopic guidance. Over the wire, a 6 [place]an x 26 cm double-J ureteral stent was advanced. When the wire was removed, there was a good curl in the kidney under fluoroscopic guidance. A curl was visualized in the bladder with the cystoscope. A wire was readvanced to the bladder with an appropriate amount curled there in. The cystoscope was then removed. Over the wire, a 16 [place] tip catheter was advanced. The balloon was inflated with 10 mL of normal saline and the wire was removed. Plan will be for this catheter to stay in place 1 to 2 weeks to allow the urethral false passage to heal. The patient was then awakened from anesthesia and was brought to the PACU in stable condition. I attest to the content of the Intraoperative Record and any orders documented therein. Any exceptions are noted below.
[2023-05-14] MEDS ORDERED: ATROPINE SULFATE 0.1 MG/ML 10ML SYR IV PRN (21:54)
[2023-05-14] MEDS ORDERED: ONDANSETRON INJ 2 MG/ML 2 ML VIAL IV PRN (21:54)
[2023-05-14] MEDS ORDERED: ePHEDrine sulfate 50 MG/ML AMP IV PRN (21:54)
[2023-05-14] MEDS ORDERED: fentaNYL citrate PF 100 MCG/2 ML VIAL IV PRN (21:54)
--- NOTE | 2023-05-14 22:20 | Anesthesiology Progress Note ---
Date of Service May 14, 2023 Anesthesia Post Procedure Vital Signs Vital Signs: Temp Pulse Pulse Pulse Resp BP Pulse Ox 05/14/23 22:10 37.1 C 97 H 24 189/109 H 93 05/14/23 22:00 92 H 18 191/109 H 96 05/14/23 21:52 37.1 C 92 H 18 162/100 H 97 05/14/23 18:59 36.7 C 91 H 18 127/98 96 05/14/23 15:23 36.9 C 87 18 125/76 97 05/14/23 15:19 87 05/14/23 13:00 36.8 C 98 H 20 148/90 H 98 05/14/23 11:44 36.7 C 88 18 123/85 98 05/14/23 11:08 05/14/23 07:55 36.6 C 72 17 133/82 97 05/14/23 07:00 72 05/14/23 03:17 36.8 C 88 18 146/80 H 96 05/13/23 23:55 68 05/13/23 23:15 36.8 C 81 18 111/76 97 O2 Del Method 05/14/23 22:10 Room Air 05/14/23 22:00 Room Air 05/14/23 21:52 Room Air 05/14/23 18:59 Room Air 05/14/23 15:23 Room Air 05/14/23 15:19 05/14/23 13:00 Room Air 05/14/23 11:44 Room Air 05/14/23 11:08 Room Air 05/14/23 07:55 Room Air 05/14/23 07:00 05/14/23 03:17 Room Air 05/13/23 23:55 05/13/23 23:15 Room Air Transfer of Care Handoff Completed per policy Notes Mental Status: alert / awake / arousable and participated in evaluation Patient Amnestic to Procedure: Yes Nausea / Vomiting: adequately controlled Pain: adequately controlled Airway Patency, RR, SpO2: stable & adequate BP & HR: stable & adequate Hydration State: stable & adequate Anesthetic Complications: no major complications apparent and Pt Satisfied with anesthetic care
[2023-05-14] MEDS: FAMOTIDINE 40 MG TABLET PO SCH (22:53)
[2023-05-14] MEDS: ATORVASTATIN 20 MG TAB PO SCH (22:53)
[2023-05-14] MEDS: TAMSULOSIN HCL 0.4 MG CAP PO SCH (22:54)
[2023-05-14] MEDS: POLYETHYLENE (MIRALAX) 17 GM PACK PO SCH (22:59)
[2023-05-15] MEDS: MEROPENEM 500 MG in SYRINGE 0 ML IV SCH ×2 (05:03→11:43)
[2023-05-15] MEDS: D5W AND 1/2NSS 1,000 ML IV SCH (05:04)
[2023-05-15 05:18] LABS: Hematocrit (blood only) 32.2 % (42.0-52.0); Hemoglobin 10.9 g/dl (14.0-18.0); Mean Corpuscular Hemoglobin 30.5 pg (25.0-34.0); Mean Corpuscular Hgb Conc 33.9 g/dL (32.0-36.0); Mean Corpuscular Volume 90.2 fL (80.0-100.0); Mean Platelet Volume 10.2 fL (9.4-12.4); Platelet Count 363 K/uL (130-400); RDW Coefficient of Variation 14.9 % (11.5-14.5); RDW Standard Deviation 48.7 fL (36.4-46.3); Red Blood Count 3.57 M/uL (4.70-6.10)
[2023-05-15 05:45] LABS: Anion Gap 7 (3-11); BUN Creatinine Ratio 20.5 (10-20); Blood Urea Nitrogen 8 mg/dl (6-23); Calcium 8.5 mg/dl (8.6-10.3); Carbon Dioxide 26 mmol/L (21-32); Chloride 105 mmol/L (98-107); Creatinine Clr Calc Pharmacy 270.2 ml/min; Est GFR (African American) > 150.0 ml/min; Glucose 281 mg/dl (70-99(Fasting)); Magnesium 1.8 mg/dl (1.7-2.4); Phosphorus 3.3 mg/dl (2.5-4.9); Potassium 3.6 mmol/L (3.5-5.1); Sodium 138 mmol/L (136-145)
[2023-05-15] MEDS ORDERED: VANCOMYCIN LEVEL ONE (07:30)
--- NOTE | 2023-05-15 07:49 | Fluoroscopy Report ---
FL KUB CLINICAL HISTORY: RT CYSTO STENT COMPARISON STUDY: 05/14/[address] FLUOROSCOPY TIME: 12 seconds FLUOROSCOPY IMAGES: 4 Ka,r: 6.3 mGy FINDINGS: A right ureteral stent is placed and is in good position. IMPRESSION: Fluoroscopic assistance as above. ACT 112: Negative or not required by law. Electronically signed by: Ángel Schafer M.D. 05/15/2023 7:47 AM
[2023-05-15] MEDS: MAGNESIUM OXIDE 400 MG TAB PO SCH (08:30)
[2023-05-15] MEDS: BACLOFEN 10 MG TAB PO SCH ×2 (08:31→14:42)
[2023-05-15] MEDS: FERROUS SULFATE 325 MG TAB PO SCH (08:31)
[2023-05-15] MEDS: FOLIC ACID 1 MG TAB PO SCH (08:31)
[2023-05-15] MEDS: amLODIPine BESYLATE 5 MG TAB PO SCH (08:31)
[2023-05-15] MEDS: MULTIVITAMIN TAB PO SCH (08:31)
[2023-05-15] MEDS: ASCORBIC ACID 500 MG TAB PO SCH (08:31)
[2023-05-15] MEDS: oxyBUTYnin chloride 5 MG TAB PO SCH ×2 (08:32→14:35)
[2023-05-15] MEDS: ENOXAPARIN INJ 40 MG/0.4 ML SYR SQ SCH (08:32)
[2023-05-15] MEDS: hydrALAZINE TAB 50 MG TAB PO SCH ×2 (08:32→14:35)
[2023-05-15] MEDS: lisinopril 40 MG TAB PO SCH (08:33)
[2023-05-15] MEDS: prednisoLONE sod phosphate 15 MG/5 ML PO SCH (08:33)
[2023-05-15] MEDS: CLOTRIMAZOLE/BETAMETHASONE CR 15 GM TUBE EXT SCH (08:34)
[2023-05-15] MEDS: TRIAMCINOLONE ACET 0.1% CR 15 GM TUBE TOP SCH (08:34)
[2023-05-15] MEDS: KETOCONAZOLE 2% SHAMPOO 120 ML BTL EXT SCH (08:35)
[2023-05-15] MEDS ORDERED: metHOTREXate sodium 2.5 MG TAB PO SCH (09:00)
[2023-05-15] MEDS: INSULIN ASPART PER UNIT CHARGE SC SCH ×2 (09:38→13:07)
[2023-05-15] MEDS: LANTUS PER UNIT CHARGE SQ SCH (09:39)
[2023-05-15] MEDS: VANCOMYCIN HCL 1,250 MG in SODIUM CHLORIDE 0.9% 250 ML IV SCH (10:15)
--- NOTE | 2023-05-15 14:11 | Ultrasound Report ---
US venous doppler LE RT CLINICAL HISTORY: edema, r/o DVT TECHNIQUE: Right lower extremity real-time compression venous ultrasound with Color Doppler imaging. Utilizing real-time ultrasonic imaging multiple real time high-resolution ultrasonic images with comp ression and noncompression maneuvers of the deep venous system in addition to color doppler imaging w ere performed from the common femoral vein through the proximal calf veins. COMPARISON: Comparison is made to venous ultrasound 11/05/2020 FINDINGS/IMPRESSION: Currently there is normal compressibility of the deep venous system from the common femoral vein thro ugh the proximal calf veins. Exam is limited, particularly in the lower leg, due to prominent subcut aneous edema. ACT 112: Negative or not required by law. Electronically signed by: John Rizzo M.D. 05/15/2023 2:10 PM
--- NOTE | 2023-05-15 14:26 | Pharmacy Report ---
Pharmacy PK ABX Note - Date of Service May 15, 2023 - Assessment and Plan Assessment 53 year old M receiving vancomycin/meropenem for treatment of complicated UTI. Pertinent microbiologic data includes: HX of E. coli ESBL, MRSA and pseudomonas. Urine culture pending, blood cultures x 2 show no growth at 48 hours. Urine culture from [facility] growing Pseudomonas aeruginosa, MSSA, and Enterococcus faecalis. Patient is quadriplegic so will use caution with interpreting AUC based software and subsequent dosing. Day # 4 of antimicrobial therapy. Plan Vancomycin * Current regimen: 1250 mg IV every 8 hours * Trough level obtained 05/15/23 resulted as 14.8 mcg/mL. This is predicted to achieve target AUC/SERGEY of 400-600 mg/L.hr * Predicted AUC at steady state: 462 mg/L.hr * Continue 1250 mg IV every 8 hours * Will repeat level in the next 48-72 hours if therapy is continued and/or change in patient clinical status Meropenem * 500 mg IV q6h - appropriately dosed, no change Discussed with hospitalist - plan is like to discharge today with PO antibiotics (levofloxacin and Augmentin) Pharmacy will continue to follow and will adjust dose/frequency as necessary. Thank you. Pharmacy has transitioned to AUC monitoring for vancomycin. AUC/SERGEY is the preferred PK/PD target and is associated with decreased risk of nephrotoxicity compared to traditional trough targets.
--- NOTE | 2023-05-15 15:13 | Urology Progress Note ---
Date of Service May 15, 2023 Assessment & Plan (1) UTI (urinary tract infection): (2) Neurogenic bladder: (3) Ureterolithiasis: Plan 53yo/M with PMH of quadriplegia and neurogenic bladder managed with suprapubic catheter admitted with sepsis/UTI. POD #1 s/p Cystoscopy, right retrograde pyelogram, right ureteral stent placement Feeling well, tolerating the ureteral stent with minimal bother. Afebrile and hemodynamically stable. Labs reviewed-WBC 10.10, hemoglobin 10.9, creatinine 0.39. Urine culture 05/12 negative. Blood cultures preliminary no growth x48 hours. Pt recently admitted at [facility]. UC grew Pseudomonas and Enterococcus faecalis. On IV Vanco and Meropenem. Suprapubic catheter was exchanged in the ED 05/12. Draining appropriately urine is clear yellow. Urethral catheter intact, draining clear yellow urine. Plan to maintain on discharge. Will arrange outpatient follow-up with our service to discuss definitive stone treatment and for urethral catheter removal. Continue supportive care and antibiotic therapy. Urology will sign off. Please contact us with any further questions, concerns, or changes in patient status. Admission and Anticipated Discharge Date Admission Date: May 12, 2023 Subjective Patient examined at bedside this afternoon. Awake, sitting up in bed on arrival. No acute distress. Tolerating ureteral stent with minimal bother. Suprapubic catheter intact and draining clear yellow urine. Urethral catheter intact, draining clear yellow urine. Denies any significant pain or discomfort. Denies fevers, chills, nausea, vomiting Review of Systems Constitutional: as per Subjective / HPI Genitourinary: + as per Subjective / HPI Physical Exam Constitutional: no acute distress Respiratory: no respiratory distress and no labored breathing Neurologic: awake Psychiatric: A+Ox3, euthymic affect Genitourinary: Suprapubic catheter intact, draining clear yellow urine. Urethral catheter intact, draining clear yellow urine Results & Data Vital Signs (Past 12 Hours) Vital Signs Temp Pulse Pulse Pulse Resp BP Pulse Ox 05/15/23 11:55 36.6 C 78 16 125/79 99 05/15/23 07:56 37.6 C H 73 16 132/77 99 05/15/23 07:00 64 05/15/23 05:28 36.7 C 87 18 118/73 95 O2 Del Method 05/15/23 11:55 Room Air 05/15/23 07:56 Room Air 05/15/23 07:00 05/15/23 05:28 Room Air PG Care Time/CCT Total # of Minutes Spent Total Time Spent with Patient: Total time spent is greater than 50% in coordination of care (as documented) at patient's floor/unit and/or counseling patient: Coding Level of Care Code 11953 SUB INP/OBS CARE 2/35MIN Diagnoses Urinary tract infection associated with catheterization of urinary tract, unspecified indwelling urinary catheter type, initial encounter T83.511A; N39.0 Encounter type: initial encounter Indwelling urinary catheter type: unspecified Urinary tract infection type: catheter-associated UTI Neurogenic bladder N31.9 Ureterolithiasis N20.1 (1) UTI (urinary tract infection) Encounter type: initial encounter Indwelling urinary catheter type: unspecified Urinary tract infection type: catheter-associated UTI Qualified Code(s): T83.511A - Infection and inflammatory reaction due to indwelling uret hral catheter, initial encounter; N39.0 - Urinary tract infection, site not specified
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
== END 2023-05-15 16:52 | DRG 853 ==
LOC: ED 21:42 → EDINP 05-12 02:42 → SUATTDRO 05-12 02:42 → EDINP 05-12 04:29 → 2W 05-12 14:43

== ENCOUNTER 2024-06-14 10:07 | Inpatient (IN) ==
[2024-06-14 11:09] LABS: Basophils # (auto) 0.04 K/uL (0.00-0.20); Basophils % (auto) 0.3 %; Eosinophils # (auto) 0.32 K/uL (0.00-0.50); Eosinophils % (auto) 2.2 %; Hematocrit (blood only) 34.9 % (42.0-52.0); Hemoglobin 11.4 g/dl (14.0-18.0); Immature Granulocytes # (auto) 0.06 K/uL (0.01-0.20); Immature Granulocytes % (auto) 0.4 %; Lymphocytes # (auto) 1.07 K/uL (1.20-3.40); Lymphocytes % (auto) 7.2 %; Mean Corpuscular Hemoglobin 28.1 pg (25.0-34.0); Mean Corpuscular Hgb Conc 32.7 g/dL (32.0-36.0); Mean Corpuscular Volume 86.2 fL (80.0-100.0); Monocytes # (auto) 0.82 K/uL (0.11-0.59); Monocytes % (auto) 5.5 %; Neutrophils # (auto) 12.47 K/uL (1.40-6.50); Neutrophils % (auto) 84.4 %; Platelet Count 435 K/uL (130-400); RDW Standard Deviation 47.3 fL (36.4-46.3); Red Blood Count 4.05 M/uL (4.70-6.10); White Blood Count 14.78 K/ul (4.8-10.8)
[2024-06-14 11:28] LABS: Albumin Globulin Ratio 0.9 (0.9-2); Albumin Level 3.3 gm/dl (3.4-5.0); BUN Creatinine Ratio 42.5 (10-20); Bilirubin,Total 0.4 mg/dl (0.2-1.0); Calcium 9.1 mg/dl (8.6-10.3); Creatinine Clr Calc Pharmacy 235.1 ml/min; Globulin 3.5 gm/dl (2.5-4.0); Magnesium 1.8 mg/dl (1.7-2.4); Potassium 4.3 mmol/L (3.5-5.1); Total Protein 6.8 gm/dl (6.0-8.3)
--- NOTE | 2024-06-14 11:41 | History & Physical Report ---
Date of Service June 14, 2024 Assessment & Plan (1) Sacral wound: Plan: Patient with ongoing sacral wound for 'years', referred by wound care 06/14 for possible unroofing of large cavity via surgery Patient denies pain as a quadriplegic sensation from chest down Hx of MRSA in urine See images in chart below - diffuse surrounding erythema Does not appear to be septic at this time, VSS, mild leukocytosis although chronic prednisone use - CT showing interval development of right ischial wound with underlying bony erosion concerning for osteomyelitis, left-sided skin thickening seen concerning for cellulitis - consider bone biopsy at time of surgery for culture - Given meropenem and daptomycin in ED; continue - 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 - General surgery consulted - NPO after mightnight - plan for de-roof 06/15 - blood culture pending - wound care consulted (2) Osteomyelitis: Plan: see above (3) Leukocytosis: Plan: mildly elevated at 14.78 with neutrophil predominance Suspect secondary to chronic prednisone use Monitor daily CBC with differential (4) Anemia: Plan: Appears chronic Hgb baseline, 11.4 Hct 34.9 - will add iron panel, b12, and folate to AM labs - continue home iron supplement (5) Neurogenic bladder: Plan: History of neurogenic bladder managed with SP tube SP tube in place Continue tamsulosin, methenamine, and oxybutynin (6) Diabetes: Plan: Stated that he discontinued metformin and insulin over the summer after 94 lb weight loss Monitor glucose on daily BMP Heart healthy diet A1C with AM labs (7) Tobacco chew use: Plan: added nicotine patch (8) Decubitus ulcer of right ischium, stage 4: (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: quadriplegia - fall and aspiration precautions 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 (verified with patient), methotrexate every thursday HTN - hold hydralazine and lisinopril with surgery in AM HLD - hold statin with daptomycin use VTE ppx: SCDs; defer chemical therapy as anticipating surgical management in near future Diet: heart healthy - npo after midnight Code status: Full Dispo: med surg Admission and Anticipated Discharge Date Admission Date: 06/14/24 History of Present Illness Chief Complaint: wound Primary Care Provider: Vianey Murphy Patient is a 54-year-old male with past medical history of quadriplegia, recurrent UTIs, hypertension, hyperlipidemia, neurogenic bladder, type II DM, pemphigus foliaceus. He presents today from the wound care clinic due to a sacral wound that was been treated with gentamicin IV x 3 days. Wound care anticipated a surgical consult with unroofing of the large cavity of sacral area. he stated that he has been following with wound care for years for the sacral wound although it was never this bad. He lives in [facility] and wound care visits him there. He denies pain to the area as he has no feeling from the chest down with the quadriplegia. He denies fevers, chills, dizziness, lightheadedness, chest pain, shortness of breath. His catheter is working well and in place. He took all of his home medications this morning. No significant surgical/cardiac history, denies history of cancer, VTE, NH, COPD, asthma. He lost 94 pounds over the summer and has stopped his diabetes medication. He wishes to be full code at this time. Allergies Allergy/AdvReac Type Severity Reaction Status Date / Time Sulfa (Sulfonamide Allergy Severe Swelling Verified 06/14/24 08:14 Antibiotics) of Lip/Tongue/Throat piperacillin [From Zosyn] Allergy Intermediate Rash Verified 06/14/24 08:14 tazobactam [From Zosyn] Allergy Intermediate Rash Verified 06/14/24 08:14 Home Medications Medication Instructions Recorded Confirmed Type baclofen 10 mg tablet See Rx Instructions .Route .COMPLEX 05/11/18 06/14/24 History folic acid 1 mg tablet 1 mg PO DAILY 05/11/18 06/14/24 History oxybutynin chloride 5 mg tablet 5 mg PO TID 05/11/18 06/14/24 History methenamine hippurate 1 gram tablet 1 g PO BID 11/05/20 06/14/24 History atorvastatin 20 mg tablet 20 mg PO HS 08/27/21 06/14/24 History aluminum-mag hydroxide-simethicone 30 ml PO Q6H PRN 09/02/22 06/14/24 History 200 mg-200 mg-20 mg/5 mL oral susp dyspepsia,indigestion bisacodyl 10 mg rectal suppository 20 mg KY Q OTHER DAY 09/02/22 06/14/24 History (Dulcolax (bisacodyl)) magnesium oxide 400 mg (241.3 mg 400 mg PO BID 09/02/22 06/14/24 History magnesium) tablet multivitamin 1 tab PO DAILY 09/02/22 06/14/24 History polyethylene glycol 3350 17 17 g PO HS 09/02/22 06/14/24 History gram/dose oral powder (Miralax) ascorbic acid (vitamin C) 500 mg 500 mg PO DAILY 05/11/23 06/14/24 History tablet ferrous sulfate 325 mg (65 mg 325 mg PO DAILY 05/11/23 06/14/24 History iron) tablet tamsulosin 0.4 mg capsule 0.4 mg PO HS 05/11/23 06/14/24 History acetaminophen 325 mg tablet 650 mg PO Q4H PRN Pain 05/12/23 06/14/24 History clotrimazole-betamethasone 1 1 applic topical BID 05/12/23 06/14/24 History %-0.05 % topical cream bisacodyl 10 mg rectal suppository 10 mg KY DAILY PRN Constipation 06/17/23 06/14/24 History (Dulcolax (bisacodyl)) ketoconazole 2 % topical cream 1 applic topical 3XWK 06/17/23 06/14/24 History magnesium hydroxide 400 mg/5 mL 2,400 mg PO UD PRN Constipation 06/17/23 06/14/24 History oral suspension (Milk of Magnesia) methotrexate sodium 2.5 mg tablet 15 mg PO Q7D 06/17/23 06/14/24 History sodium phosphates 19 gram-7 118 ml KY UD PRN Constipation 06/17/23 06/14/24 History gram/118 mL enema (Fleet Enema) Saccharomyces boulardii 250 mg 250 mg PO DAILY 06/14/24 06/14/24 History capsule acetaminophen 325 mg tablet 650 mg PO Q6H PRN Fever 06/14/24 06/14/24 History arginine-vitamin C-vitamin E oral See Rx Instructions .Route .COMPLEX 06/14/24 06/14/24 History 4.5 gram-156 mg/9.2 gram powder pkt (Arginaid) baclofen 20 mg tablet See Rx Instructions .Route .COMPLEX 06/14/24 06/14/24 History clobetasol 0.05 % topical cream 1 applic topical Q12H PRN 06/14/24 06/14/24 History Dermatitis ergocalciferol (vitamin D2) 1,250 1,250 mcg PO WK 06/14/24 06/14/24 History mcg (50,000 unit) capsule gentamicin 100 mg/50 mL in 0.9 % See Rx Instructions .Route .COMPLEX 06/14/24 06/14/24 History sodium chloride intravenous piggyback hydralazine 25 mg tablet 25 mg PO TID 06/14/24 06/14/24 History lisinopril 10 mg tablet 10 mg PO DAILY 06/14/24 06/14/24 History prednisone 5 mg tablet 5 mg PO DAILY 06/14/24 06/14/24 History sodium hypochlorite 0.25 % 1 applic topical DAILY Wound 06/14/24 06/14/24 History solution (Dakin's Solution) care/[place] area triamcinolone acetonide 0.1 % 1 applic topical BID 06/14/24 06/14/24 History topical cream zinc gluconate 50 mg tablet 50 mg PO DAILY 06/14/24 06/14/24 History Past Med/Surg History Problem List Sacral osteomyelitis Pressure injury of coccygeal region, stage 1 Decubitus ulcer of right ischium, stage 4 Pressure injury of ischial area, stage 4 Tobacco chew use Encounter for pre-operative examination Ureterolithiasis UTI (urinary tract infection) (Acute) Calcium nephrolithiasis Hypomagnesemia Tinea versicolor Tinea unguium Constipation UTI (urinary tract infection) (Acute) Fecal impaction in rectum Leg edema Hypotension DVT prophylaxis Abnormal urinalysis (Acute) Urinary retention Weakness (Acute) Abnormal abdominal CT scan (Acute) Abnormal CT of the abdomen Anemia UTI (urinary tract infection) (Acute) Leukocytosis (Acute) Fever (Acute) Osteomyelitis (Acute) Pressure ulcer of thigh, stage 2 (Acute) Pressure ulcer of ischium, stage 2 (Acute) Stage IV pressure ulcer of sacral region (Acute) Reactive thrombocytosis Constipation Leukocytosis (Acute) Buttock wound (Acute) Sacral wound (Acute) Sepsis Decubitus ulcer, stage 4 with infection Complication, blocked suprapubic catheter DVT prophylaxis Diabetes NIDDM Neurogenic bladder HLD (hyperlipidemia) HTN (hypertension) Pemphigus foliaceus Ileus Pemphigoid (Chronic) Sacral wound Previous back surgery Medical History Other specified disorders of bone density and structure, multiple sites Fatty (change of) liver, not elsewhere 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 coli infection Hyponatremia Lactic acidosis hx Headache Recurrent UTI (urinary tract infection) Nephrolithiasis Bladder stone Osteomyelitis Quadriplegia Hypertension Suprapubic catheter Surgical History S/P cystoscopy w/retrograde pyelogram History of hip surgery History of suprapubic catheter Family History Mother Cancer Father Diabetes Grandfather Diabetes Social History Smoking Status: Never smoker Hx Alcohol Use: No Hx Substance Use: No Preferred Language: Kenyan Communication Ability: Effective Visual Impairment: No Limitations Hearing Ability: Normal Ham Sawyer Required: No Beliefs That Will Affect Care: None marital status: Life Partner Current Living Situation: Personal Care Facility Current Living Situation Comment: Vianey Katherine [facility] How many Children do You have: 0 Feels Safe at Home: Yes Diet: regular caffeine: Yes during the past year weight has: decreased > 10 lbs Assistive Devices: Scooter/Electric Scooter Review of Systems 2 Review of Systems: see hpi Physical Exam 2 Physical Exam: The patient is awake, alert and oriented 3, well developed and well nourished, normocephalic and atraumatic, in no acute distress. Non-toxic appearing. HEENT- EOMI, mucous membranes moist. Hearing grossly intact. Heart-normal S1 and S2. No murmurs, rubs or gallops. Lungs-clear bilaterally, no respiratory distress, no accessory muscle use. Abdomen-normal bowel sounds and soft. No ascites noted. Non-tender. Suprapubic catheter in place. Extremities- no clubbing, cyanosis, or edema. Psychiatric-normal affect. Sacral wound - with surrounding erythema and image below. Results & Data Results & Data Vital Signs (Past 12 Hours) Vital Signs Temp Pulse Resp BP Pulse Ox O2 Del Method 06/14/24 10:17 36.6 C 74 13 115/64 98 Room Air 06/14/24 10:14 84 Laboratory Results Reviewed CBC, PT/INR, CMP Medications Administered ED course: meropenem and daptomycin ECG Additional Comments: NSR Code Status & VTE Plan Code Status full VTE Prophylaxis Plan VTE Prophylaxis will be ordered: Yes Supervising Physician Co-Signing Physician Notes I personally saw and examined the patient. I independently reviewed the labs, EKG, imaging, problem list, medication list, past medical history and family history. I verified all mitchell points and agree with Henrietta Magana PA-C with the following exceptions and/or additions: 54 year old male presents to the ER on advice of wound care clinic due to likely need for surgical intervention regarding his sacral ulcer. No fever or chills. O/E HS RRR, no murmurs, Chest CTAB, Abdo SNT, Sarcral ulcer with packed with pus on packaging with surrounding dark erythema A/P Sacral osteomyelitis with stage IV ulcer - daptomycin + meropenem pending blood and surgical cultures. consult general surgery. NPO after midnight PG Care Time/CCT Total # of Minutes Spent Total Time Spent with Patient: Total time spent is greater than 50% in coordination of care (as documented) at patient's floor/unit and/or counseling patient: Coding Level of Care Code 22780 INT INP/OBS CARE 375MIN Diagnoses Sacral wound S31.000A Encounter type: initial encounter Osteomyelitis of other site, unspecified type M86.9 Osteomyelitis location: other site Osteomyelitis type: unspecified type Leukocytosis D72.829 Anemia D64.9 Neurogenic bladder N31.9 Diabetes E11.9 Tobacco chew use Z72.0 Decubitus ulcer of right ischium, stage 4 L89.314 Sacral osteomyelitis M46.28 (1) Sacral wound Encounter type: initial encounter Qualified Code(s): S31.000A - Unspecified open wound of lower back and pelvis without penetration into retroperitoneum, initial encounter (2) Osteomyelitis Osteomyelitis location: other site Osteomyelitis type: unspecified type Qualified Code(s): M86.9 - Osteomyelitis, unspecified
[2024-06-14 11:43] LABS: Prothrombin Time 10.5 Seconds (9.0-12.0)
[2024-06-14] MEDS: MEROPENEM 500 MG in SYRINGE 0 ML IV STA (11:58)
[2024-06-14] MEDS: DAPTOmycin 475 MG in SYRINGE 0 ML IV STA (11:58)
[2024-06-14] MEDS: OPTIRAY 320 100ml IV ONE (12:17)
--- NOTE | 2024-06-14 12:32 | Emergency Department Note ---
Impression & Plan Buttock wound, Osteomyelitis, Failure of outpatient treatment ED Provider Note ED Provider Note NAME: MARC PADILLA III AGE:54 SEX: Male : 1970 ARRIVES VIA: EMS INFORMANT: Patient ED PROVIDER(s): Michelle Waldron DO CHIEF COMPLAINT: Referred from wound clinic HPI: This is a 54-year-old male with complicated past medical history and ongoing issues with wounds particularly to the right ischial/buttock region who presents after being referred here following evaluation by Dr. Arriaga in the wound clinic. Patient was previously on IV gentamicin over the course of the last week at the facility where he resides. This was started by a provider there who had been coming and doing bedside debridements of his wound. Prior to that he had been on oral doxycycline per accompanying records. He denies fevers or chills, abdominal pain or pressure, vomiting, or any other evolving symptoms. He states he has had several issues with wounds due to ongoing skin conditions as well as his immobility. PAST MEDICAL HISTORY:See Below PAST SURGICAL HISTORY:See Below FAMILY HISTORY:See Below SOCIAL HISTORY:See Below HOME MEDICATIONS:See Below ALLERGIES:See Below VITALS:See Below PHYSICAL EXAMINATION: GENERAL: alert, well appearing, well nourished, no distress, non-toxic EYE EXAM: normal conjunctiva, PERRL and EOM's grossly intact OROPHARYNX: no exudate, no erythema, lips, buccal mucosa, and tongue normal and mucous membranes are moist NECK: supple, no nuchal rigidity, no adenopathy, non-tender LUNGS: Clear to auscultation. Normal chest wall mechanics, no w/r/r HEART: no murmurs, S1 normal and S2 normal ABDOMEN: abdomen soft, non-tender, normo-active bowel sounds, no masses, no rebound or guarding. Suprapubic catheter noted, no active bleeding or drainage from skin site. BACK: Back is symmetrical on inspection and there is no deformity, no midline tenderness, no CVA tenderness. BUTTOCK/SACRUM: Large wound noted to the right ischial region with indwelling packing, surrounding erythema, wound extends in through the subcutaneous region and appears to extend into the musculature, no active drainage, no extension into the perineum SKIN: no rashes, petechiae, orbruising UPPER EXTREMITIES: upper extremities are grossly normal. 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 LOWER EXTREMITIES: No pitting edema. Muscular atrophy noted, no movement given prior spinal cord injury, nml pulses b/l. Dressings noted at bilateral knees as he states he gets wounds to the knees and any pressure or friction exposes further skin and irritates the wounds, no joint effusions NEURO EXAM: Normal sensorium, cranial nerves II-XII grossly intact, normal speech, no facial droop,nogross weakness of arms, no gross weakness of legs. Gross sensation intact. No ataxia. Vital Signs: reviewed and remarkable Differential Diagnosis: Sacral decub, buttock wound, fistula, osteomyelitis, abscess, occult fracture, avascular necrosis, cellulitis, as well as others were considered MEDICAL DECISION MAKING: This is a 54-year-old male sent here from the wound clinic by Dr. Arriaga who I did speak with prior to the patient's arrival. Dr. Mcdonnell daily concern for need for further inpatient evaluation, IV antibiotics, and possible surgical debridement. Labs drawn and sent including blood cultures, IV established, EKG performed at bedside interpreted me and patient monitored on telemetry. I did examine the wound. I discussed antibiotic use with the ED pharmacist, Paola and orders placed. Case discussed with the hospitalist team additionally who did request CT of the involved area of the right buttock. Patient sent for CT which revealed findings concerning for possible osteomyelitis, this was referred to the hospitalist. They will admit the patient for further inpatient evaluation and management. Consultation(s): 1140: Discussed with Dr. Charles, Nv hospitalist team for additional evaluation and mgmt. ER Treatment Provided: See below Diagnostics Interpreted By Me: -ECG: Normal sinus at 64, normal axis, normal intervals, no acute ST/T wave changes -Cardiac Monitoring: An order was placed for continuous cardiac monitoring. The monitor shows a rate of 66 with normal sinus rhythm. -Laboratory studies: As stated above and show below. -Imaging studies: CT pelvis: possible osteo, large right buttock wound Triage Nursing Note Reviewed Prior/Outside Records Reviewed -wound clinic notes reviewed Past Med/Surg History Problem List (Updated 06/15/24 @ 15:46 by Radha Veliz RN) Failure of outpatient treatment (Acute) Osteomyelitis (Acute) Sacral osteomyelitis Pressure injury of coccygeal region, stage 1 Decubitus ulcer of right ischium, stage 4 Pressure injury of ischial area, stage 4 Tobacco chew use Encounter for pre-operative examination Ureterolithiasis UTI (urinary tract infection) (Acute) Calcium nephrolithiasis Hypomagnesemia Tinea versicolor Tinea unguium Constipation UTI (urinary tract infection) (Acute) Fecal impaction in rectum Leg edema Hypotension DVT prophylaxis Abnormal urinalysis (Acute) Urinary retention Weakness (Acute) Abnormal abdominal CT scan (Acute) Abnormal CT of the abdomen Anemia UTI (urinary tract infection) (Acute) Leukocytosis (Acute) Fever (Acute) Osteomyelitis (Acute) Pressure ulcer of thigh, stage 2 (Acute) Pressure ulcer of ischium, stage 2 (Acute) Stage IV pressure ulcer of sacral region (Acute) Reactive thrombocytosis Constipation Leukocytosis (Acute) Buttock wound (Acute) Sacral wound (Acute) Sepsis Decubitus ulcer, stage 4 with infection Complication, blocked suprapubic catheter DVT prophylaxis Diabetes NIDDM Neurogenic bladder HLD (hyperlipidemia) HTN (hypertension) Pemphigus foliaceus Ileus Pemphigoid (Chronic) Sacral wound Previous back surgery Medical History (Updated 06/15/24 @ 19:53 by Michelle Waldron DO) Other specified disorders of bone density and structure, multiple sites Fatty (change of) liver, not elsewhere classified longterm current use of oral hypoglycemic drug Neurogenic bowel Pityriasis versicolor Tinea unguium Hypomagnesemia Hx of constipation GERD (gastroesophageal reflux disease) Catheter-associated urinary tract infection hx Morbid obesity with BMI of 40.0-44.9, adult 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 coli infection Hyponatremia Lactic acidosis hx Headache Recurrent UTI (urinary tract infection) Nephrolithiasis Bladder stone Osteomyelitis Quadriplegia Hypertension Suprapubic catheter Surgical History (Updated 06/15/24 @ 15:46 by Radha Veliz RN) S/P debridement (06/15/24) Debridement sacral ulcer, skin, subcutaneal tissue and biopsy of ischium(Not Applicable) - Naeem Flanagan MD, FACS S/P cystoscopy w/retrograde pyelogram History of hip surgery History of suprapubic catheter Family History Mother Cancer Father Diabetes Grandfather Diabetes Social History Smoking Status: Never smoker Hx Alcohol Use: No Hx Substance Use: No Preferred Language: Greenlandic Communication Ability: Effective Visual Impairment: No Limitations Hearing Ability: Normal [place] Regulator Required: No Beliefs That Will Affect Care: None marital status: Life Partner Current Living Situation: Personal Care Facility Current Living Situation Comment: [facility] How many Children do You have: 0 Feels Safe at Home: Yes Diet: regular caffeine: Yes during the past year weight has: decreased > 10 lbs Assistive Devices: None Allergies Allergies Allergy/AdvReac Type Severity Reaction Status Date / Time Sulfa (Sulfonamide Allergy Severe Swelling Verified 06/14/24 08:14 Antibiotics) of Lip/Tongue/Throat piperacillin [From Zosyn] Allergy Intermediate Rash Verified 06/14/24 08:14 tazobactam [From Zosyn] Allergy Intermediate Rash Verified 06/14/24 08:14 Home Meds Home Medications Medication Instructions Recorded Confirmed baclofen 10 mg tablet See Rx Instructions .Route .COMPLEX 05/11/18 06/14/24 folic acid 1 mg tablet 1 mg PO DAILY 05/11/18 06/14/24 oxybutynin chloride 5 mg tablet 5 mg PO TID 05/11/18 06/14/24 methenamine hippurate 1 gram tablet 1 g PO BID 11/05/20 06/14/24 atorvastatin 20 mg tablet 20 mg PO HS 08/27/21 06/14/24 aluminum-mag hydroxide-simethicone 30 ml PO Q6H PRN 09/02/22 06/14/24 200 mg-200 mg-20 mg/5 mL oral susp dyspepsia,indigestion bisacodyl 10 mg rectal suppository 20 mg VA Q OTHER DAY 09/02/22 06/14/24 (Dulcolax (bisacodyl)) magnesium oxide 400 mg (241.3 mg 400 mg PO BID 09/02/22 06/14/24 magnesium) tablet multivitamin 1 tab PO DAILY 09/02/22 06/14/24 polyethylene glycol 3350 17 17 g PO HS 09/02/22 06/14/24 gram/dose oral powder (Miralax) ascorbic acid (vitamin C) 500 mg 500 mg PO DAILY 05/11/23 06/14/24 tablet ferrous sulfate 325 mg (65 mg 325 mg PO DAILY 05/11/23 06/14/24 iron) tablet tamsulosin 0.4 mg capsule 0.4 mg PO HS 05/11/23 06/14/24 acetaminophen 325 mg tablet 650 mg PO Q4H PRN Pain 05/12/23 06/14/24 clotrimazole-betamethasone 1 1 applic topical BID 05/12/23 06/14/24 %-0.05 % topical cream bisacodyl 10 mg rectal suppository 10 mg VA DAILY PRN Constipation 06/17/23 06/14/24 (Dulcolax (bisacodyl)) ketoconazole 2 % topical cream 1 applic topical 3XWK 06/17/23 06/14/24 magnesium hydroxide 400 mg/5 mL 2,400 mg PO UD PRN Constipation 06/17/23 06/14/24 oral suspension (Milk of Magnesia) methotrexate sodium 2.5 mg tablet 15 mg PO Q7D 06/17/23 06/14/24 sodium phosphates 19 gram-7 118 ml VA UD PRN Constipation 06/17/23 06/14/24 gram/118 mL enema (Fleet Enema) Saccharomyces boulardii 250 mg 250 mg PO DAILY 06/14/24 06/14/24 capsule acetaminophen 325 mg tablet 650 mg PO Q6H PRN Fever 06/14/24 06/14/24 arginine-vitamin C-vitamin E oral See Rx Instructions .Route .COMPLEX 06/14/24 06/14/24 4.5 gram-156 mg/9.2 gram powder pkt (Arginaid) baclofen 20 mg tablet See Rx Instructions .Route .COMPLEX 06/14/24 06/14/24 clobetasol 0.05 % topical cream 1 applic topical Q12H PRN 06/14/24 06/14/24 Dermatitis ergocalciferol (vitamin D2) 1,250 1,250 mcg PO WK 06/14/24 06/14/24 mcg (50,000 unit) capsule gentamicin 100 mg/50 mL in 0.9 % See Rx Instructions .Route .COMPLEX 06/14/24 06/14/24 sodium chloride intravenous piggyback hydralazine 25 mg tablet 25 mg PO TID 06/14/24 06/14/24 lisinopril 10 mg tablet 10 mg PO DAILY 06/14/24 06/14/24 prednisone 5 mg tablet 5 mg PO DAILY 06/14/24 06/14/24 sodium hypochlorite 0.25 % 1 applic topical DAILY Wound 06/14/24 06/14/24 solution (Dakin's Solution) care/Ira area triamcinolone acetonide 0.1 % 1 applic topical BID 06/14/24 06/14/24 topical cream zinc gluconate 50 mg tablet 50 mg PO DAILY 06/14/24 06/14/24 Results & Data (ED) Vital Signs Vital Signs - 24 hr 06/14/24 10:14 06/14/24 10:17 06/14/24 11:00 Temperature 36.6 C Temperature Source Oral Pulse Rate 84 74 Pulse Rate [Apical] 58 L Respiratory Rate 13 18 Respiratory Effort / Characteristics Non-Labored Spontaneous Blood Pressure 115/64 Blood Pressure [Right Arm] 124/74 Blood Pressure Mean 81 Blood Pressure Mean [Right Arm] 90 Blood Pressure Position [Right Arm] Lying Pulse Oximetry 98 97 Oxygen Delivery Method Room Air Room Air Sepsis New/Unexplained Change in Mental Status No Sepsis Action Taken by Nursing No Action Required Laboratory Data 06/15/24 03:57 06/15/24 03:57 Lab Results 06/14/24 Range/Units 10:45 WBC 14.78 H (4.8-10.8) K/ul RBC 4.05 L (4.70-6.10) M/uL Hgb 11.4 L (14.0-18.0) g/dl Hct 34.9 L (42.0-52.0) % MCV 86.2 (80.0-100.0) fL MCH 28.1 (25.0-34.0) pg MCHC 32.7 (32.0-36.0) g/dL RDW Std Deviation 47.3 H (36.4-46.3) fL RDW Coeff of Sandor 15.0 H (11.5-14.5) % Plt Count 435 H (130-400) K/uL MPV 10.0 (9.4-12.4) fL Immature Gran % (Auto) 0.4 % Neut % (Auto) 84.4 % Lymph % (Auto) 7.2 % [place] % (Auto) 5.5 % Eos % (Auto) 2.2 % Baso % (Auto) 0.3 % Neut # (Auto) 12.47 H (1.40-6.50) K/uL Lymph # (Auto) 1.07 L (1.20-3.40) K/uL [place] # (Auto) 0.82 H (0.11-0.59) K/uL Eos # (Auto) 0.32 (0.00-0.50) K/uL Baso # (Auto) 0.04 (0.00-0.20) K/uL Immature Gran # (Auto) 0.06 (0.01-0.20) K/uL PT 10.5 (9.0-12.0) Seconds INR 1.0 (0.9-1.1) Sodium 135 L (136-145) mmol/L Potassium 4.3 (3.5-5.1) mmol/L Chloride 100 (98-107) mmol/L Carbon Dioxide 28 (21-32) mmol/L Anion Gap 7 (3-11) BUN 17 (6-23) mg/dl Creatinine 0.40 L (0.6-1.4) mg/dl Est Cr Clr Drug Dosing 235.1 ml/min eGFR 129.66 BUN/Creatinine Ratio 42.5 H (10-20) Glucose 136 H (70-99(Fasting)) mg/dl Calcium 9.1 (8.6-10.3) mg/dl Magnesium 1.8 (1.7-2.4) mg/dl Total Bilirubin 0.4 (0.2-1.0) mg/dl AST 11 L (13-39) U/L ALT 14 (7-52) U/L Alkaline Phosphatase 82 (34-104) U/L Total Protein 6.8 (6.0-8.3) gm/dl Albumin 3.3 L (3.4-5.0) gm/dl Globulin 3.5 (2.5-4.0) gm/dl Albumin/Globulin Ratio 0.9 (0.9-2) Administered Medications Ascorbic Acid (Ascorbic Acid 500 Mg Tab) 500 mg PO DAILY COUNT INCLUDES THE [facility] Stop: 07/15/24 08:59 Last Admin: 06/15/24 08:26 Dose: 500 mg Documented By: RDL Baclofen (Baclofen 20 Mg Tab) 20 mg PO TID COUNT INCLUDES THE [facility] Stop: 07/14/24 15:27 Last Admin: 06/15/24 13:18 Dose: 20 mg Documented By: Admin: 06/15/24 08:26 Dose: 20 mg Documented By: Admin: 06/14/24 20:43 Dose: Not Given Documented By: Admin: 06/14/24 18:15 Dose: 20 mg Documented By: NATY Baclofen (Baclofen 10 Mg Tab) 10 mg PO TID COUNT INCLUDES THE [facility] Stop: 07/14/24 15:27 Last Admin: 06/15/24 13:18 Dose: 10 mg Documented By: Admin: 06/15/24 08:26 Dose: 10 mg Documented By: Admin: 06/14/24 20:44 Dose: Not Given Documented By: Admin: 06/14/24 18:15 Dose: 10 mg Documented By: NATY Betamethasone/Clotrimazole (Clotrimazole/Betamethasone Cr 15 Gm Tube) 1 appln EXT BID SAHIL Stop: 07/14/24 20:59 Last Admin: 06/15/24 08:29 Dose: 1 appln Documented By: Admin: 06/14/24 20:46 Dose: 1 appln Documented By: JOSH Ferrous Sulfate (Ferrous Sulfate 325 Mg Tab) 325 mg PO DAILY COUNT INCLUDES THE [facility] Stop: 07/15/24 08:59 Last Admin: 06/15/24 08:27 Dose: 325 mg Documented By: MIKE Folic Acid (Folic Acid 1 Mg Tab) 1 mg PO DAILY COUNT INCLUDES THE [facility] Stop: 07/15/24 08:59 Last Admin: 06/15/24 08:26 Dose: 1 mg Documented By: MIKE Hydralazine HCl (Hydralazine Hcl 25 Mg Tab) 25 mg PO TID COUNT INCLUDES THE [facility] Stop: 07/14/24 20:59 Last Admin: 06/14/24 20:46 Dose: 25 mg Documented By: JOSH Daptomycin 325 mg/ Syringe 6.5 mls @ 3.25 mls/min IV Q24H SAHIL; Protocol Stop: 06/22/24 11:29 Last Admin: 06/15/24 13:11 Dose: 3.25 mls/min Documented By: NATY Meropenem 500 mg/ Syringe 10 mls @ 2 mls/min IV Q6H COUNT INCLUDES THE [facility]; Protocol Stop: 06/21/24 17:59 Last Admin: 06/15/24 17:40 Dose: 2 mls/min Documented By: Admin: 06/15/24 13:11 Dose: 2 mls/min Documented By: Admin: 06/15/24 05:38 Dose: 2 mls/min Documented By: Admin: 06/14/24 23:35 Dose: 2 mls/min Documented By: Admin: 06/14/24 20:35 Dose: 2 mls/min Documented By: JOSH Ketoconazole (Ketoconazole 2% Cr 15 Gm Tube) 1 appln EXT MoWeFr@1800 COUNT INCLUDES THE [facility] Stop: 06/25/24 17:59 Last Admin: 06/15/24 17:40 Dose: 1 appln Documented By: NATY Lisinopril (Lisinopril 10 Mg Tab) 10 mg PO DAILY COUNT INCLUDES THE [facility] Stop: 07/15/24 08:59 Last Admin: 06/15/24 08:24 Dose: 10 mg Documented By: MIKE Magnesium Oxide (Magnesium Oxide 400 Mg Tab) 400 mg PO BID COUNT INCLUDES THE [facility] Stop: 07/14/24 20:59 Last Admin: 06/15/24 08:25 Dose: 400 mg Documented By: Admin: 06/14/24 20:46 Dose: 400 mg Documented By: JOSH Methenamine Hippurate (Methenamine Hippurate 1 Gm Tab) 1 gm PO BID COUNT INCLUDES THE [facility] Stop: 07/14/24 20:59 Last Admin: 06/15/24 08:27 Dose: 1 gm Documented By: Admin: 06/14/24 20:46 Dose: 1 gm Documented By: JOSH Miscellaneous (Remove Nicoderm Patch) 1 each N/A DAILY@0859 COUNT INCLUDES THE [facility] Stop: 07/15/24 08:58 Last Admin: 06/15/24 08:24 Dose: Not Given Documented By: MIKE Nicotine (Nicotine 7 Mg/24 Hr Tdsy) 1 patch TD QAM COUNT INCLUDES THE [facility] Stop: 07/14/24 15:44 Last Admin: 06/15/24 08:24 Dose: Not Given Documented By: Admin: 06/14/24 18:14 Dose: Not Given Documented By: NATY Oxybutynin Chloride (Oxybutynin Chloride 5 Mg Tab) 5 mg PO TID COUNT INCLUDES THE [facility] Stop: 07/14/24 20:59 Last Admin: 06/15/24 13:19 Dose: 5 mg Documented By: Admin: 06/15/24 08:25 Dose: 5 mg Documented By: Admin: 06/14/24 20:45 Dose: 5 mg Documented By: JOSH Polyethylene Glycol (Polyethylene (Miralax) 17 Gm Pack) 17 gm PO HS COUNT INCLUDES THE [facility] Stop: 07/14/24 20:59 Last Admin: 06/14/24 20:54 Dose: 17 gm Documented By: JOSH Prednisone (Prednisone 5 Mg Tab) 5 mg PO DAILY [facility]IL Stop: 07/15/24 08:59 Last Admin: 06/15/24 13:17 Dose: 5 mg Documented By: NATY Tamsulosin HCl (Tamsulosin Hcl 0.4 Mg Cap) 0.4 mg PO [facility] Stop: 07/14/24 20:59 Last Admin: 06/14/24 20:47 Dose: 0.4 mg Documented By: JOSH Discontinued Medications Fentanyl Citrate (Fentanyl Citrate Pf 100 Mcg/2 Ml Vial) 25 mcg IV Q5M PRN PRN Reason: PACU Use Only-Pain Stop: 06/15/24 19:23 Last Admin: 06/15/24 12:45 Dose: 25 mcg Documented By: Admin: 06/15/24 12:35 Dose: 25 mcg Documented By: Admin: 06/15/24 12:30 Dose: 25 mcg Documented By: Admin: 06/15/24 12:25 Dose: 25 mcg Documented By: EDELMIRA Meropenem 500 mg/ Syringe 10 mls @ 2 mls/min IV NOW STA; Protocol Stop: 06/14/24 11:38 Last Admin: 06/14/24 11:58 Dose: 2 mls/min Documented By: TIMOTHY Daptomycin 475 mg/ Syringe 9.5 mls @ 4.75 mls/min IV NOW STA; Protocol Stop: 06/14/24 11:38 Last Admin: 06/14/24 11:58 Dose: 4.75 mls/min Documented By: TIMOTHY Sodium Chloride (Nss) 1,000 mls @ 80 mls/hr IV .[id number] COUNT INCLUDES THE [facility] Stop: 06/15/24 00:29 Last Infusion: 06/15/24 05:25 Dose: Infused Documented By: Admin: 06/14/24 12:33 Dose: 80 mls/hr Documented By: TIMOTHY Ioversol (Optiray 320 100ml) 94 ml IV ONCE ONE Stop: 06/14/24 12:17 Last Admin: 06/14/24 12:17 Dose: 94 ml Documented By: MATEO Imaging Data Radiologist's Impression: Pelvis CT 06/14/24 11:57 CT pelvis w/IV con only CLINICAL HISTORY: right ischial wound/right buttock TECHNIQUE: Helical axial images of the pelvis were obtained and displayed at 5 and 1 mm intervals. Automated dose lowering techniques and/or adjustment according to patient size were utilized for this exam. This exam was performed with intravenous contrast. CT DOSE: 946.14 mGy.cm COMPARISON: Comparison is made to CT abdomen pelvis 05/14/2023 FINDINGS: Bladder: Molina catheter is seen. Reproductive organs: Unremarkable. Bowel: Diverticulosis is seen without diverticulitis. The appendix is normal. Lymph nodes Pelvic: Unremarkable. Mesenteric: Unremarkable. Peritoneum: Normal Vessels: Atherosclerotic calcifications are seen. Abdominal wall: Right ischial soft tissue wound is seen with soft tissue thickening and subcutaneous emphysema. No distinct drainable fluid collection is seen. Skin thickening in the left sided buttock crease is seen but without definite collection. Bones: Cortical erosion is seen in the right ischium next to the focus of subcutaneous emphysema and soft tissue thickening. Degenerative changes in the visualized spine.Heterotopic ossification is seen about the left greater trochanter. IMPRESSION: 1. Interval development of right ischial wound with underlying bony erosion concerning for osteomyelitis. No drainable abscess is seen. 2. Left-sided skin thickening is seen, clinical correlation is recommended to exclude cellulitis. 3. Additional findings as above. ACT 112: Negative or not required by law. Electronically signed by: John Rizzo M.D. 06/14/2024 12:36 PM Discharge Plan Visit Data Chief Complaint: Infection, Wound ED Provider: Michelle Waldron Discharge Problem: Buttock wound, Osteomyelitis, Failure of outpatient treatment Patient Disposition: Admitted As Inpatient Discharge Instructions Interventions: ED Discharge Assessment Last Done: 06/14/24 16:17
[2024-06-14] MEDS: SODIUM CHLORIDE 0.9% 1,000 ML IV SCH (12:33)
--- NOTE | 2024-06-14 12:38 | CT Scan Report ---
CT pelvis w/IV con only CLINICAL HISTORY: right ischial wound/right buttock TECHNIQUE: Helical axial images of the pelvis were obtained and displayed at 5 and 1 mm intervals. Au tomated dose lowering techniques and/or adjustment according to patient size were utilized for this e xam. This exam was performed with intravenous contrast. CT DOSE: 946.14 mGy.cm COMPARISON: Comparison is made to CT abdomen pelvis 05/14/2023 FINDINGS: Bladder: Molina catheter is seen. Reproductive organs: Unremarkable. Bowel: Diverticulosis is seen without diverticulitis. The appendix is normal. Lymph nodes Pelvic: Unremarkable. Mesenteric: Unremarkable. Peritoneum: Normal Vessels: Atherosclerotic calcifications are seen. Abdominal wall: Right ischial soft tissue wound is seen with soft tissue thickening and subcutaneous emphysema. No distinct drainable fluid collection is seen. Skin thickening in the left sided buttock crease is seen but without definite collection. Bones: Cortical erosion is seen in the right ischium next to the focus of subcutaneous emphysema and soft tissue thickening. Degenerative changes in the visualized spine.Heterotopic ossification is seen about the left greater trochanter. IMPRESSION: 1. Interval development of right ischial wound with underlying bony erosion concerning for osteomyel itis. No drainable abscess is seen. 2. Left-sided skin thickening is seen, clinical correlation is recommended to exclude cellulitis. 3. Additional findings as above. ACT 112: Negative or not required by law. Electronically signed by: John Rizzo M.D. 06/14/2024 12:36 PM
--- NOTE | 2024-06-14 14:48 | Surgery Consultation ---
<Statement entered by Khalif Schaefer DO - 06/14/24 15:28> I have seen and examined this patient with the surgical team and I agree with this plan. I have also spoken to Dr. Flanagan who referred the patient to discuss his suggestions for this case. If ok with medicine, we will plan to unroof the extensively tunneled area in the OR tomorrow for better access to the area for wound care. Date of Consultation June 14, 2024 Assessment & Plan (1) Stage IV pressure ulcer of sacral region: This is a 54yM with a PMH of quadriplegia, recurrent UTIs with supra pubic catheter, DM, HLD, HTN who presents to the [facility] ED on 06/14/24 with as a referral from the wound care center with a long standing sacral wound. Recently where he resides a assistant surveyor has been starting to perform some debriding and using other wound care dressings as it has been deteriorating. Since it has not been making much improvements the patient made an appointment with our wound care center and it was recommended the patient come into the ER for further evaluation and for possible debridement and unroofing. The patient underwent a CT a/p that showed interval development of right ischial wound with underlying bony erosion concerning for osteomyelitis. No drainable abscess is seen. The hattie mendoza states the wound was cultured and grew out 4 different bacteria and that he was started on Gentamycin IV last week. Although he did miss 4 doses throughout the weekend as there apparently was none at the pharmacy. The patient reports otherwise feeling well. No pain, n/v. Reports + BM's. He does not believe that he soils the wound with BMs and that he gets a numb face when he feels like he is going to have a BM. Today's blood work shows WBC 14, Hbg 11, Cr 0.4. Vital signs are stable and he is afebrile. On exam he has a + sacral wound with some surrounding skin erythema and flaking. No skin necrosis. Area of tunneling appreciated with a slimy like substance on packing. For now we recommend an evaluation by the wound care nurse for their input on dressing changes vs if a vac is feasible. Until seen by them, in the interim please change dressing daily, irrigate with NSS of 60mL syringe, pack with kerlix, cover with dry 4x4 gauze and tape. We will make a determination of if he requires unroofing in the near future after eval by wound care if a vac is not possible. There is no skin changes/necrosis that require debridement at this time but we will make pt NPO at midnight and will follow closely to make daily determinations if surgery is indicated. Continue IV abx for osteomyelitis seen on imaging. Pt seen/examined with Dr. Schaefer. History of Present Illness History of Present Illness This is a 54yM with a PMH of quadriplegia, recurrent UTIs with supra pubic catheter, DM, HLD, HTN who presents to the [facility] ED on 06/14/24 with as a referral from the wound care center with a long standing sacral wound. Patient states that the wound has been present in some capacity over the last several years. Where he resides a assistant surveyor has been starting to perform some debriding and using other wound care dressings as it has been deteriorating. Since it has not been making much improvements the patient made an appointment with our wound care center and it was recommended the patient come into the ER for further evaluation and the need for possible debridement and unroofing. The patient underwent a CT a/p that revealed Interval development of right ischial wound with underlying bony erosion concerning for osteomyelitis. No drainable abscess is seen. The patient states the wound was cultured and grew out 4 different bacteria and that he was started on Gentamycin IV last week. Although he did miss 4 doses throughout the wknd as there apparently was none at the pharmacy. The patient reports otherwise feeling well. No pain, n/v. Reports + BM's. He does not believe that he soils the wound with a BM and that he gets a numb face when he feels like he is going to have a BM. No fevers/chills. Recent respiratory illness with Covid + last week. Allergies Allergy/AdvReac Type Severity Reaction Status Date / Time Sulfa (Sulfonamide Allergy Severe Swelling Verified 06/14/24 08:14 Antibiotics) of Lip/Tongue/Throat piperacillin [From Zosyn] Allergy Intermediate Rash Verified 06/14/24 08:14 tazobactam [From Zosyn] Allergy Intermediate Rash Verified 06/14/24 08:14 Home Medications Medication Instructions Recorded Confirmed Type baclofen 10 mg tablet See Rx Instructions .Route .COMPLEX 05/11/18 06/14/24 History folic acid 1 mg tablet 1 mg PO DAILY 05/11/18 06/14/24 History oxybutynin chloride 5 mg tablet 5 mg PO TID 05/11/18 06/14/24 History methenamine hippurate 1 gram tablet 1 g PO BID 11/05/20 06/14/24 History atorvastatin 20 mg tablet 20 mg PO HS 08/27/21 06/14/24 History aluminum-mag hydroxide-simethicone 30 ml PO Q6H PRN 09/02/22 06/14/24 History 200 mg-200 mg-20 mg/5 mL oral susp dyspepsia,indigestion bisacodyl 10 mg rectal suppository 20 mg MD Q OTHER DAY 09/02/22 06/14/24 History (Dulcolax (bisacodyl)) magnesium oxide 400 mg (241.3 mg 400 mg PO BID 09/02/22 06/14/24 History magnesium) tablet multivitamin 1 tab PO DAILY 09/02/22 06/14/24 History polyethylene glycol 3350 17 17 g PO HS 09/02/22 06/14/24 History gram/dose oral powder (Miralax) ascorbic acid (vitamin C) 500 mg 500 mg PO DAILY 05/11/23 06/14/24 History tablet ferrous sulfate 325 mg (65 mg 325 mg PO DAILY 05/11/23 06/14/24 History iron) tablet tamsulosin 0.4 mg capsule 0.4 mg PO HS 05/11/23 06/14/24 History acetaminophen 325 mg tablet 650 mg PO Q4H PRN Pain 05/12/23 06/14/24 History clotrimazole-betamethasone 1 1 applic topical BID 05/12/23 06/14/24 History %-0.05 % topical cream bisacodyl 10 mg rectal suppository 10 mg MD DAILY PRN Constipation 06/17/23 06/14/24 History (Dulcolax (bisacodyl)) ketoconazole 2 % topical cream 1 applic topical 3XWK 06/17/23 06/14/24 History magnesium hydroxide 400 mg/5 mL 2,400 mg PO UD PRN Constipation 06/17/23 06/14/24 History oral suspension (Milk of Magnesia) methotrexate sodium 2.5 mg tablet 15 mg PO Q7D 06/17/23 06/14/24 History sodium phosphates 19 gram-7 118 ml MD UD PRN Constipation 06/17/23 06/14/24 History gram/118 mL enema (Fleet Enema) Saccharomyces boulardii 250 mg 250 mg PO DAILY 06/14/24 06/14/24 History capsule acetaminophen 325 mg tablet 650 mg PO Q6H PRN Fever 06/14/24 06/14/24 History arginine-vitamin C-vitamin E oral See Rx Instructions .Route .COMPLEX 06/14/24 06/14/24 History 4.5 gram-156 mg/9.2 gram powder pkt (Arginaid) baclofen 20 mg tablet See Rx Instructions .Route .COMPLEX 06/14/24 06/14/24 History clobetasol 0.05 % topical cream 1 applic topical Q12H PRN 06/14/24 06/14/24 History Dermatitis ergocalciferol (vitamin D2) 1,250 1,250 mcg PO WK 06/14/24 06/14/24 History mcg (50,000 unit) capsule gentamicin 100 mg/50 mL in 0.9 % See Rx Instructions .Route .COMPLEX 06/14/24 06/14/24 History sodium chloride intravenous piggyback hydralazine 25 mg tablet 25 mg PO TID 06/14/24 06/14/24 History lisinopril 10 mg tablet 10 mg PO DAILY 06/14/24 06/14/24 History prednisone 5 mg tablet 5 mg PO DAILY 06/14/24 06/14/24 History sodium hypochlorite 0.25 % 1 applic topical DAILY Wound 06/14/24 06/14/24 History solution (Dakin's Solution) care/Ira area triamcinolone acetonide 0.1 % 1 applic topical BID 06/14/24 06/14/24 History topical cream zinc gluconate 50 mg tablet 50 mg PO DAILY 06/14/24 06/14/24 History Patient History Medical History Other specified disorders of bone density and structure, multiple sites Fatty (change of) liver, not elsewhere classified half-way current use of oral hypoglycemic drug Neurogenic bowel Pityriasis versicolor Tinea unguium Hypomagnesemia Hx of constipation GERD (gastroesophageal reflux disease) Catheter-associated urinary tract infection hx Morbid obesity with BMI of 40.0-44.9, adult 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 coli infection Hyponatremia Lactic acidosis hx Headache Recurrent UTI (urinary tract infection) Nephrolithiasis Bladder stone Osteomyelitis Quadriplegia Hypertension Suprapubic catheter Surgical History S/P cystoscopy w/retrograde pyelogram History of hip surgery History of suprapubic catheter Family History Mother Cancer Father Diabetes Grandfather Diabetes Social History Smoking Status: Never smoker Hx Alcohol Use: No Hx Substance Use: No Preferred Language: [place] Communication Ability: Effective Visual Impairment: No Limitations Hearing Ability: Normal Registered Dietitian Required: No Beliefs That Will Affect Care: None marital status: Life Partner Current Living Situation: [facility] Current Living Situation Comment: [facility]. How many Children do You have: 0 Feels Safe at Home: Yes Diet: regular caffeine: Yes during the past year weight has: decreased > 10 lbs Assistive Devices: Wheelchair Review of Systems Constitutional: no fever and no chills Respiratory: no dyspnea Gastrointestinal: no abdominal pain, no nausea, no vomiting and no change in bowel habits routinely drinks prune juice for his BMs Integumentary: + sacral wound Physical Exam Physical Exam: awake/alert, no distress Respiratory: normal respiratory effort Gastrointestinal (Abdomen): Percussion/Palpation: abdomen soft; abdomen nontender Skin: + sacral wound with some surrounding ski n erythema and flaking. No skin necrosis. Area of tunneling appreciated with a slimy like substance on packing Results & Data Vital Signs (Past 12 Hours) Vital Signs Temp Pulse Pulse Resp BP BP Pulse Ox 06/14/24 14:00 71 06/14/24 13:00 58 L 18 118/67 96 06/14/24 11:00 58 L 18 124/74 97 06/14/24 10:17 97.9 F 74 13 115/64 98 06/14/24 10:14 84 O2 Del Method 06/14/24 14:00 06/14/24 13:00 Room Air 06/14/24 11:00 Room Air 06/14/24 10:17 Room Air 06/14/24 10:[address] pelvis w/IV con only CLINICAL HISTORY: right ischial wound/right buttock TECHNIQUE: Helical axial images of the pelvis were obtained and displayed at 5 and 1 mm intervals. Automated dose lowering techniques and/or adjustment according to patient size were utilized for this exam. This exam was performed with intravenous contrast. CT DOSE: 946.14 mGy.cm COMPARISON: Comparison is made to CT abdomen pelvis 05/14/2023 FINDINGS: Bladder: Molina catheter is seen. Reproductive organs: Unremarkable. Bowel: Diverticulosis is seen without diverticulitis. The appendix is normal. Lymph nodes Pelvic: Unremarkable. Mesenteric: Unremarkable. Peritoneum: Normal Vessels: Atherosclerotic calcifications are seen. Abdominal wall: Right ischial soft tissue wound is seen with soft tissue thickening and subcutaneous emphysema. No distinct drainable fluid collection is seen. Skin thickening in the left sided buttock crease is seen but without definite collection. Bones: Cortical erosion is seen in the right ischium next to the focus of subcutaneous emphysema and soft tissue thickening. Degenerative changes in the visualized spine.Heterotopic ossification is seen about the left greater trochanter. IMPRESSION: 1. Interval development of right ischial wound with underlying bony erosion concerning for osteomyelitis. No drainable abscess is seen. 2. Left-sided skin thickening is seen, clinical correlation is recommended to exclude cellulitis. 3. Additional findings as above. ACT 112: Negative or not required by law. Electronically signed by: John Rizzo M.D. 06/14/2024 12:36 PM PG Care Time/CCT Total # of Minutes Spent Total Time Spent with Patient: Total time spent is greater than 50% in coordination of care (as documented) at patient's floor/unit and/or counseling patient: Coding Level of Care Code 11227 IN/OBS CONSULT LVL 3,45M Diagnoses Stage IV pressure ulcer of sacral region L89.154
[2024-06-14] MEDS ORDERED: ACETAMINOPHEN 325 MG TAB PO PRN (15:28)
[2024-06-14] MEDS: NICOTINE 7 MG/24 HR TDSY TD SCH (18:14)
[2024-06-14] MEDS: BACLOFEN 20 MG TAB PO SCH (18:15)
[2024-06-14] MEDS: BACLOFEN 10 MG TAB PO SCH (18:15)
[2024-06-14] MEDS ORDERED: MEROPENEM 500 MG VIAL IV SCH (19:30)
[2024-06-14] MEDS: MEROPENEM 500 MG in SYRINGE 0 ML IV SCH (20:35)
[2024-06-14] MEDS: oxyBUTYnin chloride 5 MG TAB PO SCH (20:45)
[2024-06-14] MEDS: CLOTRIMAZOLE/BETAMETHASONE CR 15 GM TUBE EXT SCH (20:46)
[2024-06-14] MEDS: hydrALAZINE HCL 25 MG TAB PO SCH (20:46)
[2024-06-14] MEDS: METHENAMINE HIPPURATE 1 GM TAB PO SCH (20:46)
[2024-06-14] MEDS: MAGNESIUM OXIDE 400 MG TAB PO SCH (20:46)
[2024-06-14] MEDS: TAMSULOSIN HCL 0.4 MG CAP PO SCH (20:47)
[2024-06-14] MEDS: POLYETHYLENE (MIRALAX) 17 GM PACK PO SCH (20:54)
[2024-06-15 04:30] LABS: Basophils # (auto) 0.04 K/uL (0.00-0.20); Basophils % (auto) 0.4 %; Eosinophils # (auto) 0.49 K/uL (0.00-0.50); Eosinophils % (auto) 4.7 %; Hematocrit (blood only) 32.1 % (42.0-52.0); Hemoglobin 10.2 g/dl (14.0-18.0); Immature Granulocytes # (auto) 0.07 K/uL (0.01-0.20); Immature Granulocytes % (auto) 0.7 %; Lymphocytes # (auto) 1.56 K/uL (1.20-3.40); Lymphocytes % (auto) 14.9 %; Mean Corpuscular Hemoglobin 27.8 pg (25.0-34.0); Mean Corpuscular Hgb Conc 31.8 g/dL (32.0-36.0); Mean Corpuscular Volume 87.5 fL (80.0-100.0); Mean Platelet Volume 9.9 fL (9.4-12.4); Monocytes # (auto) 0.92 K/uL (0.11-0.59); Monocytes % (auto) 8.8 %; Neutrophils # (auto) 7.38 K/uL (1.40-6.50); Neutrophils % (auto) 70.5 %; Platelet Count 404 K/uL (130-400); RDW Coefficient of Variation 15.5 % (11.5-14.5); Red Blood Count 3.67 M/uL (4.70-6.10); White Blood Count 10.46 K/ul (4.8-10.8)
[2024-06-15 04:47] LABS: BUN Creatinine Ratio 45.5 (10-20); Calcium 8.4 mg/dl (8.6-10.3); Creatinine Clr Calc Pharmacy 213.7 ml/min
[2024-06-15 05:06] LABS: Ferritin 176.1 ng/ml (8-388)
[2024-06-15 05:14] LABS: Folate (Folic Acid),Ser orPlas > 22.30 ng/ml (>5.38)
[2024-06-15 05:15] LABS: Vitamin B12 333 pg/ml (180-914)
--- NOTE | 2024-06-15 06:08 | Electrocardiogram Report ---
Test Reason : Blood Pressure : */* mmHG Vent. Rate : 64 BPM Atrial Rate : 64 BPM P-R Int : 180 ms QRS Dur : 90 ms QT Int : 408 ms P-R-T Axes : 36 1 57 degrees QTcB Int : 420 ms Normal sinus rhythm Normal ECG When compared with ECG of 11-May-2023 22:03, Premature atrial complexes are no longer Present Confirmed by Maikel Gonzalez ([id number]) on 06/15/2024 6:08:12 AM Referred By: Confirmed By: Maikel Gonzalez
[2024-06-15 07:07] LABS: Estimated Average Glucose 143 mg/dl; Hemoglobin A1C 6.6 % (4.5-5.6)
[2024-06-15] MEDS: lisinopril 10 MG TAB PO SCH (08:24)
[2024-06-15] MEDS: ASCORBIC ACID 500 MG TAB PO SCH (08:26)
[2024-06-15] MEDS: FOLIC ACID 1 MG TAB PO SCH (08:26)
[2024-06-15] MEDS: FERROUS SULFATE 325 MG TAB PO SCH (08:27)
--- NOTE | 2024-06-15 09:25 | History & Physical Bridge Note ---
Date of Service June 15, 2024 History & Physical Bridge Note I have examined the patient, reviewed the History & Physical and in the interval since the performance of the History & Physical I have noted the following changes of clinical significance: I saw the patient yesterday in the wound clinic for sacral decubitus debridement the patient was admitted and will proceed with debridement this morning has been no changes since last seen yesterday All questions answered
[2024-06-15] MEDS ORDERED: LIDOCAINE 2% 2 ML VIAL/AMP(20MG/ML) INFIL ONE (10:38)
[2024-06-15] MEDS ORDERED: PROPOFOL IV EMULSION 10 MG/ML 20 ML VIAL IV ONE (10:38)
[2024-06-15] MEDS ORDERED: ROCURONIUM BROMIDE 10 MG/ML 5 ML VIAL IV ONE (10:38)
[2024-06-15] MEDS ORDERED: MIDAZOLAM HCL 1 MG/ML 2ML VIAL ONE (10:39)
[2024-06-15] MEDS ORDERED: fentaNYL citrate PF 100 MCG/2 ML VIAL ONE (10:41)
[2024-06-15] MEDS ORDERED: DEXAMETHASONE SOD INJ 4 MG/ML VIAL ONE (10:42)
[2024-06-15] MEDS ORDERED: SUGAMMADEX SODIUM 200 MG/2 ML VIAL IV ONE (10:43)
[2024-06-15] MEDS ORDERED: ONDANSETRON INJ 2 MG/ML 2 ML VIAL ONE (10:43)
--- NOTE | 2024-06-15 11:21 | Anesthesiology Consultation ---
Date of Service June 15, 2024 Assessment & Plan Chart Review Chart Review: Acceptable Risk for Surgery and Patient NOT seen in Pre Admission Testing Consults Requested none ASA ASA3 Proposed Anesthesia Anesthesia Type: General Risk / Benefits Reviewed With: PT / POA / Parent / Guardian, Accepts Plan and Informed Consent Obtained History Surgery Operation Date: 06/15/24 10:20 Proposed Procedures p Incision and Debridement Sacral Ulcer - Khalif Schaefer, Height/Weight Height: 5 ft 8 in Weight: 94.2 kg Allergies Allergy/AdvReac Type Severity Reaction Status Date / Time Sulfa (Sulfonamide Allergy Severe Swelling Verified 06/14/24 08:14 Antibiotics) of Lip/Tongue/Throat piperacillin [From Zosyn] Allergy Intermediate Rash Verified 06/14/24 08:14 tazobactam [From Zosyn] Allergy Intermediate Rash Verified 06/14/24 08:14 Medications Home Medications Medication Instructions Recorded Confirmed Last Taken baclofen 10 mg tablet See Rx Instructions .Route .COMPLEX 05/11/18 06/14/24 02/09/22 folic acid 1 mg tablet 1 mg PO DAILY 05/11/18 06/14/24 06/14/24 oxybutynin chloride 5 mg tablet 5 mg PO TID 05/11/18 06/14/24 02/09/22 methenamine hippurate 1 gram tablet 1 g PO BID 11/05/20 06/14/24 02/09/22 atorvastatin 20 mg tablet 20 mg PO HS 08/27/21 06/14/24 02/09/22 aluminum-mag hydroxide-simethicone 30 ml PO Q6H PRN 09/02/22 06/14/24 Unknown 200 mg-200 mg-20 mg/5 mL oral susp dyspepsia,indigestion bisacodyl 10 mg rectal suppository 20 mg OK Q OTHER DAY 09/02/22 06/14/24 Unknown (Dulcolax (bisacodyl)) magnesium oxide 400 mg (241.3 mg 400 mg PO BID 09/02/22 06/14/24 Unknown magnesium) tablet multivitamin 1 tab PO DAILY 09/02/22 06/14/24 Unknown polyethylene glycol 3350 17 17 g PO HS 09/02/22 06/14/24 Unknown gram/dose oral powder (Miralax) ascorbic acid (vitamin C) 500 mg 500 mg PO DAILY 05/11/23 06/14/24 Unknown tablet ferrous sulfate 325 mg (65 mg 325 mg PO DAILY 05/11/23 06/14/24 06/14/24 iron) tablet tamsulosin 0.4 mg capsule 0.4 mg PO HS 05/11/23 06/14/24 Unknown acetaminophen 325 mg tablet 650 mg PO Q4H PRN Pain 05/12/23 06/14/24 Unknown clotrimazole-betamethasone 1 1 applic topical BID 05/12/23 06/14/24 Unknown %-0.05 % topical cream bisacodyl 10 mg rectal suppository 10 mg OK DAILY PRN Constipation 06/17/23 06/14/24 Unknown (Dulcolax (bisacodyl)) ketoconazole 2 % topical cream 1 applic topical 3XWK 06/17/23 06/14/24 Unknown magnesium hydroxide 400 mg/5 mL 2,400 mg PO UD PRN Constipation 06/17/23 06/14/24 Unknown oral suspension (Milk of Magnesia) methotrexate sodium 2.5 mg tablet 15 mg PO Q7D 06/17/23 06/14/24 Unknown sodium phosphates 19 gram-7 118 ml OK UD PRN Constipation 06/17/23 06/14/24 Unknown gram/118 mL enema (Fleet Enema) Saccharomyces boulardii 250 mg 250 mg PO DAILY 06/14/24 06/14/24 Unknown capsule acetaminophen 325 mg tablet 650 mg PO Q6H PRN Fever 06/14/24 06/14/24 Unknown arginine-vitamin C-vitamin E oral See Rx Instructions .Route .COMPLEX 06/14/24 06/14/24 Unknown 4.5 gram-156 mg/9.2 gram powder pkt (Arginaid) baclofen 20 mg tablet See Rx Instructions .Route .COMPLEX 06/14/24 06/14/24 Unknown clobetasol 0.05 % topical cream 1 applic topical Q12H PRN 06/14/24 06/14/24 Unknown Dermatitis ergocalciferol (vitamin D2) 1,250 1,250 mcg PO WK 06/14/24 06/14/24 Unknown mcg (50,000 unit) capsule gentamicin 100 mg/50 mL in 0.9 % See Rx Instructions .Route .COMPLEX 06/14/24 06/14/24 Unknown sodium chloride intravenous piggyback hydralazine 25 mg tablet 25 mg PO TID 06/14/24 06/14/24 Unknown lisinopril 10 mg tablet 10 mg PO DAILY 06/14/24 06/14/24 Unknown prednisone 5 mg tablet 5 mg PO DAILY 06/14/24 06/14/24 Unknown sodium hypochlorite 0.25 % 1 applic topical DAILY Wound 06/14/24 06/14/24 Unknown solution (Dakin's Solution) care/Ira area triamcinolone acetonide 0.1 % 1 applic topical BID 06/14/24 06/14/24 Unknown topical cream zinc gluconate 50 mg tablet 50 mg PO DAILY 06/14/24 06/14/24 Unknown Active Medications Generic Name Dose Route Start Last Admin Trade Name Duncanq PRN Reason Stop Dose Admin Ascorbic Acid 500 mg 06/15/24 09:00 06/15/24 08:26 Ascorbic Acid 500 Mg Tab PO 07/15/24 08:59 500 mg DAILY SAHIL Administration Baclofen 20 mg 06/14/24 15:28 06/15/24 08:26 Baclofen 20 Mg Tab PO 07/14/24 15:27 20 mg TID SAHIL Administration Baclofen 10 mg 06/14/24 15:28 06/15/24 08:26 Baclofen 10 Mg Tab PO 07/14/24 15:27 10 mg TID SAHIL Administration Betamethasone/Clotrimazole 1 appln 06/14/24 21:00 06/15/24 08:29 Clotrimazole/Betamethasone Cr 15 Gm Tube EXT 07/14/24 20:59 1 appln BID SAHIL Administration Ferrous Sulfate 325 mg 06/15/24 09:00 06/15/24 08:27 Ferrous Sulfate 325 Mg Tab PO 07/15/24 08:59 325 mg DAILY SAHIL Administration Folic Acid 1 mg 06/15/24 09:00 06/15/24 08:26 Folic Acid 1 Mg Tab PO 07/15/24 08:59 1 mg DAILY SAHIL Administration Hydralazine HCl 25 mg 06/14/24 21:00 06/14/24 20:46 Hydralazine Hcl 25 Mg Tab PO 07/14/24 20:59 25 mg TID SAHIL Administration Meropenem 500 mg/ Syringe 10 mls @ 2 mls/min 06/14/24 18:00 06/15/24 05:38 IV 06/21/24 17:59 2 mls/min Q6H SAHLI Administration Protocol Lisinopril 10 mg 06/15/24 09:00 06/15/24 08:24 Lisinopril 10 Mg Tab PO 07/15/24 08:59 10 mg DAILY SAHIL Administration Magnesium Oxide 400 mg 06/14/24 21:00 06/15/24 08:25 Magnesium Oxide 400 Mg Tab PO 07/14/24 20:59 400 mg BID SAHIL Administration Methenamine Hippurate 1 gm 06/14/24 21:00 06/15/24 08:27 Methenamine Hippurate 1 Gm Tab PO 07/14/24 20:59 1 gm BID SAHIL Administration Miscellaneous 1 each 06/15/24 08:59 06/15/24 08:24 Remove Nicoderm Patch N/A 07/15/24 08:58 Not Given [id number] [facility] Nicotine 1 patch 06/14/24 15:45 06/15/24 08:24 Nicotine 7 Mg/24 Hr Tdsy TD 07/14/24 15:44 Not Given QAM SAHIL Oxybutynin Chloride 5 mg 06/14/24 21:00 06/15/24 08:25 Oxybutynin Chloride 5 Mg Tab PO 07/14/24 20:59 5 mg TID SAHIL Administration Polyethylene Glycol 17 gm 06/14/24 21:00 06/14/24 20:54 Polyethylene (Miralax) 17 Gm Pack PO 07/14/24 20:59 17 gm HS SAHIL Administration Tamsulosin HCl 0.4 mg 06/14/24 21:00 06/14/24 20:47 Tamsulosin Hcl 0.4 Mg Cap PO 07/14/24 20:59 0.4 mg HS SAHIL Administration NPO Date Last Intake of Fluids: 06/14/24 Time Last Intake of Fluids: 23:00 Date Last Intake of Solids: 06/14/24 Time Last Intake of Solids: 17:00 Past Medical History Medical History Other specified disorders of bone density and structure, multiple sites Fatty (change of) liver, not elsewhere 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 coli infection Hyponatremia Lactic acidosis hx Headache Recurrent UTI (urinary tract infection) Nephrolithiasis Bladder stone Osteomyelitis Quadriplegia Hypertension Suprapubic catheter Exercise / Class Metabolic Activity IV < 2 Limit ADL/Bedbound Past Family History Family History Mother Cancer Father Diabetes Grandfather Diabetes Past Surgical History Surgical History S/P cystoscopy w/retrograde pyelogram History of hip surgery History of suprapubic catheter Past Anesthesia History No Hx of Anesthesia Complications and No Family Hx of Anesthesia Complications History of PONV No Hx of PONV and No Hx of Motion Sickness Social History Smoking Status: Never smoker tobacco type: smokeless tobacco Hx Alcohol Use: No Hx Substance Use: No substance use type: does not use Review of Systems ROS Unobtainable: All systems reviewed & are unremarkable except as noted in HPI & below Physical Exam Vital Signs Last Vital Signs Temp 36.7 C 06/15/24 09:13 Pulse 88 06/15/24 09:13 Resp 20 06/15/24 09:13 BP 117/67 06/15/24 09:13 Pulse Ox 97 06/15/24 09:13 O2 Del Method Room Air 06/15/24 09:13 ENMT Mouth: no TMJ abnormality Thyromental Distance: > or= 3.5 Finger Breadths Mallampati Class: II Neck normal visual inspection and trachea midline; neck extension not limited Respiratory normal respiratory effort Auscultation: lungs clear to auscultation bilaterally Cardiovascular Rate/Rhythm: regular rate and regular rhythm Heart Sounds: no murmur Musculoskeletal Spine: normal cervical ROM Extremities: full ROM of extremities Neurologic moves all extremities Psychiatric Orientation: alert and oriented x 3 Testing Laboratory Results 06/15/24 03:57 06/15/24 03:57 PT 10.5 Seconds (9.0-12.0) 06/14/24 10:45 INR 1.0 (0.9-1.1) 06/14/24 10:45 Hemoglobin A1c 6.6 % (4.5-5.6) H 06/15/24 03:57 06/15/24 09:12 POC Glucose 118 H Electrocardiogram Date: 06/14/24 Normal sinus rhythm Normal ECG When compared with ECG of 11-May-2023 22:03, Premature atrial complexes are no longer Present
[2024-06-15] MEDS ORDERED: ATROPINE SULFATE 0.1 MG/ML 10ML SYR IV PRN (11:23)
[2024-06-15] MEDS ORDERED: ONDANSETRON INJ 2 MG/ML 2 ML VIAL IV PRN (11:23)
[2024-06-15] MEDS ORDERED: ePHEDrine sulfate 50 MG/ML AMP IV PRN (11:23)
[2024-06-15] MEDS ORDERED: PHENYLEPHRINE 100MCG/ML 5ML SYR ONE (11:30)
--- NOTE | 2024-06-15 11:47 | Post Operative Brief Note ---
Immediate Post Op Note Date of Surgery June 15, 2024 Pre & Post Diagnosis Operation Date: 06/15/24 10:20 <No data on this case meets the specified criteria> I identified the patient and participated in the time-out.: Yes Procedure Operation Date: 06/15/24 10:20 <No data on this case meets the specified criteria> Surgeon Naeem Flanagan MD, FACS [employer] Intelligence Officer Deric MENDEZ Estimated Blood Loss 20 Findings Consistent with Post-Op Diagnosis
[2024-06-15] MEDS: fentaNYL citrate PF 100 MCG/2 ML VIAL IV PRN (12:25)
--- NOTE | 2024-06-15 12:28 | Operative Report ---
PG Post Operative Report Pre & Post Diagnosis Operation Date: 06/15/24 10:20 Pre-Op Diagnosis: Right sacral ischial decubitus ulceration with osteo Post-Op Diagnosis: Right sacral ischial decubital ulcer open area approximately 2 cm circumferentially undermining significantly approximately 8 cm circumferentially and down to the cavity approximately 6 cm I identified the patient and participated in the time-out.: Yes Procedure Operation Date: 06/15/24 10:20 Actual Procedures p Debridement sacral ulcer, skin, subcutaneal tissue and biopsy of ischium(Not Applicable) - Naeem Flanagan MD, FACS Debridement of skin subcutaneous tissue down to granulation tissue (wide excision of skin subcutaneous tissue with measurement 9 cm x 6 cm x 5 cm with undermining approximately 2 cm circumferentially) biopsy of the ischium with rongeur The patient was brought into the operating theater general trach anesthesia then placed in the prone position padding the chest abdomen and lower extremity the perianal area and buttocks were prepped Betadine solution properly draped a timeout was had the patient identified systemic antibiotics on board using the electrocautery on cutting and coag we circumferentially went out beyond the central opening which was approximately 2 cm in diameter went to the nice elliptical incision circumferentially down to a point that the undermining was very minimal but could accommodate a VAC system when we were finished with debridement using electrocautery and coag the cavity that was left and the opening was 9 cm x 6 cm x 5 cm and undermining between 9 and 3 o'clock position 2 cm biopsy of the bone was taken in most apical aspect which was very friable using a rongeur bleeding throughout the procedure was controlled with electrocautery estimated blood loss procedure approximately 20 cc addendum the wound was packed with 1 inch plain gauze and 2-0 Prolene suture was used in vertical mattress to hold the packing intact Addendum Isabel Paulson physician podiatrist assistant was present throughout the procedure and helped the retraction exposure and wound closure Spoke with his brother Meche at [phone] Surgeon Naeem Flanagan MD, FACS Bogger Operator Deric MENDEZ Estimated Blood Loss 20 Findings Consistent with Post-Op Diagnosis The open area on the skin approximately 2 cm circumferentially but probed to a depth approximately 6 cm and undermining approximately 8 cm with clinical osteo myelitis of the ischium Specimens Excision of skin and subcutaneous tissue Biopsy of the ischium x 3 with rongeur sent for cultures and pathology Drains Wound packed with 1 inch plain gauze Complications None Indications Sacral decubital ulcer on the right with extension into the ischium Description of Procedure merda I attest to the content of the Intraoperative Record and any orders documented therein. Any exceptions are noted below.
--- NOTE | 2024-06-15 12:54 | Anesthesiology Progress Note ---
Date of Service June 15, 2024 Anesthesia Post Procedure Vital Signs Vital Signs: Temp Pulse Pulse Pulse Resp BP BP 06/15/24 12:45 66 12 150/82 H 06/15/24 12:35 97.7 F 73 12 146/74 H 06/15/24 12:25 78 12 157/75 H 06/15/24 12:15 108 H 16 151/102 H 06/15/24 12:07 96.8 F L 102 H 22 168/101 H 06/15/24 09:13 98.1 F 88 20 117/67 06/15/24 07:03 98.1 F 76 16 116/73 06/14/24 20:03 98.1 F 81 18 113/69 06/14/24 17:21 06/14/24 16:30 97.9 F 73 16 138/86 06/14/24 16:17 68 18 116/70 06/14/24 15:28 63 18 131/72 06/14/24 14:00 71 06/14/24 13:00 58 L 18 118/67 Pulse Ox O2 Del Method O2 Flow Rate 06/15/24 12:45 100 Nasal Cannula 2 06/15/24 12:35 97 Nasal Cannula 2 06/15/24 12:25 98 Room Air 06/15/24 12:15 100 Room Air 06/15/24 12:07 100 Room Air 06/15/24 09:13 97 Room Air 06/15/24 07:03 97 Room Air 06/14/24 20:03 98 Room Air 06/14/24 17:21 Room Air 06/14/24 16:30 98 Room Air 06/14/24 16:17 97 Room Air 06/14/24 15:28 97 Room Air 06/14/24 14:00 06/14/24 13:00 96 Room Air Transfer of Care Handoff Completed per policy Notes Mental Status: alert / awake / arousable and participated in evaluation Patient Amnestic to Procedure: Yes Nausea / Vomiting: adequately controlled Pain: adequately controlled Airway Patency, RR, SpO2: stable & adequate BP & HR: stable & adequate Hydration State: stable & adequate Anesthetic Complications: no major complications apparent and Pt Satisfied with anesthetic care
[2024-06-15] MEDS: DAPTOmycin 325 MG in SYRINGE 0 ML IV SCH (13:11)
[2024-06-15] MEDS: predniSONE 5 MG TAB PO SCH (13:17)
[2024-06-15] MEDS: KETOCONAZOLE 2% CR 15 GM TUBE EXT SCH (17:40)
--- NOTE | 2024-06-15 18:57 | Hospitalist Progress Note ---
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 Flanagan on 06/15, bone bx taken, cultures taken Follow BCxs Continue meropenem and daptomycin Wound care consulted Will plan to consult ID in AM, expect will need 4-6 weeks IV abx (2) Osteomyelitis: Plan: see above (3) Anemia: Plan: Appears chronic ,Hgb baseline, 11.4 iron panel c/w chronic disease, perhaps some iron deficiency B12, and folate normal continue home iron supplement (4) Neurogenic bladder: Plan: History of neurogenic bladder managed with SP tube SP tube in place Continue tamsulosin, methenamine, and oxybutynin (5) Diabetes: Plan: Stated that he discontinued metformin and insulin over the summer after 94 lb weight loss Monitor glucose on daily BMP Heart healthy diet A1C here 6.6%-up from previous probably due to increase in prednisone back to 5mg dose from 2.5mg a few months ago (6) Tobacco chew use: Plan: nicotine patch Plan Chronic stable diagnoses: quadriplegia - supportive care, frequent repositioning 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 Feeling well. He has lost almost 100 lbs since I last saw him. Denies CP, SOB. Did not get his usual bisacodyl ND today abut wants to wait till tomorrow. Physical Exam Constitutional: WD/WN, vitals as above Respiratory: normal respiratory effort, lungs clear to auscultation Cardiovascular: RRR, no murmur, no edema Gastrointestinal (Abdomen): normal bowel sounds, soft, nontender, no hepatosplenomegaly Skin: + rash (multiple small macular pink scal y lesions all over) Neurologic: + focal motor deficit (BLEs flaccid, dis didi UEs 2/5 strength); not confused Psychiatric: A+Ox3, euthymic affect Results & Data Results & Data Vital Signs (Past 12 Hours) Vital Signs Temp Pulse Pulse Resp BP Pulse Ox O2 Del Method 06/15/24 15:00 36.4 C L 65 18 112/53 L 98 Room Air 06/15/24 13:57 36.3 C L 77 16 98/62 L 95 Room Air 06/15/24 13:33 36.3 C L 78 16 121/81 99 Room Air 06/15/24 13:03 36.3 C L 78 16 125/54 L 93 Room Air 06/15/24 12:55 63 12 129/74 100 Nasal Cannula 06/15/24 12:45 66 12 150/82 H 100 Nasal Cannula 06/15/24 12:35 36.5 C 73 12 146/74 H 97 Nasal Cannula 06/15/24 12:25 78 12 157/75 H 98 Room Air 06/15/24 12:15 108 H 16 151/102 H 100 Room Air 06/15/24 12:07 36.0 C L 102 H 22 168/101 H 100 Room Air 06/15/24 09:13 36.7 C 88 20 117/67 97 Room Air 06/15/24 07:03 36.7 C 76 16 116/73 97 Room Air O2 Flow Rate 06/15/24 15:00 06/15/24 13:57 06/15/24 13:33 06/15/24 13:03 06/15/24 12:55 2 06/15/24 12:45 2 06/15/24 12:35 2 06/15/24 12:25 06/15/24 12:15 06/15/24 12:07 06/15/24 09:13 06/15/24 07:03 Laboratory Results CBC, BMP reviewed PG Care Time/CCT Total # of Minutes Spent Total Time Spent with Patient: Total time spent is greater than 50% in coordination of care (as documented) at patient's floor/unit and/or counseling patient: Coding Level of Care Code 21664 SUB INP/OBS CARE MIN Diagnoses Sacral wound S31.000A Encounter type: initial encounter Osteomyelitis of other site, unspecified type M86.9 Osteomyelitis location: other site Osteomyelitis type: unspecified type Anemia D64.9 Neurogenic bladder N31.9 Diabetes E11.9 Tobacco chew use Z72.0 (1) Sacral wound Encounter type: initial encounter Qualified Code(s): S31.000A - Unspecified open wound of lower back and pelvis without penetration into retroperitoneum, initial encounter (2) Osteomyelitis Osteomyelitis location: other site Osteomyelitis type: unspecified type Qualified Code(s): M86.9 - Osteomyelitis, unspecified
--- NOTE | 2024-06-16 06:42 | Surgery Progress Note ---
Date of Service June 16, 2024 Assessment & Plan (1) Sacral osteomyelitis: Plan: Intraoperative biopsy thank you of the skin for cultures and pathology The procedure was explained to the patient (2) Decubitus ulcer of right ischium, stage 4: Plan: As stated above Procedure was explained to the patient Plan Will have the wound nurse remove the packing and apply wound VAC Will have case management start the paperwork for VAC system and arrangements to be made once discharged patient should be followed up in clinic for further management Admission and Anticipated Discharge Date Admission Date: June 14, 2024 Subjective Patient concerned denies any discomfort Physical Exam Physical Exam: Alert coherent pleasant as usual Dressing sacral area from yesterday intact Results & Data Vital Signs (Past 12 Hours) Vital Signs Temp Pulse Resp BP Pulse Ox O2 Del Method 06/15/24 20:36 36.6 C 69 16 149/65 H 95 Room Air
[2024-06-16 08:26] LABS: Basophils # (auto) 0.03 K/uL (0.00-0.20); Basophils % (auto) 0.3 %; Eosinophils # (auto) 0.11 K/uL (0.00-0.50); Eosinophils % (auto) 0.9 %; Hematocrit (blood only) 31.9 % (42.0-52.0); Hemoglobin 10.4 g/dl (14.0-18.0); Immature Granulocytes # (auto) 0.07 K/uL (0.01-0.20); Immature Granulocytes % (auto) 0.6 %; Lymphocytes # (auto) 1.19 K/uL (1.20-3.40); Lymphocytes % (auto) 10.2 %; Mean Corpuscular Hemoglobin 28.3 pg (25.0-34.0); Mean Corpuscular Hgb Conc 32.6 g/dL (32.0-36.0); Mean Corpuscular Volume 86.7 fL (80.0-100.0); Monocytes % (auto) 8.6 %; Neutrophils # (auto) 9.29 K/uL (1.40-6.50); Neutrophils % (auto) 79.4 %; Platelet Count 412 K/uL (130-400); RDW Coefficient of Variation 15.2 % (11.5-14.5); RDW Standard Deviation 47.6 fL (36.4-46.3); Red Blood Count 3.68 M/uL (4.70-6.10); White Blood Count 11.69 K/ul (4.8-10.8)
[2024-06-16 08:38] LABS: BUN Creatinine Ratio 34.4 (10-20); Calcium 8.8 mg/dl (8.6-10.3); Creatinine Clr Calc Pharmacy 293.8 ml/min; Potassium 3.9 mmol/L (3.5-5.1)
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
[2024-06-16] MEDS: bisacodyL 10 MG SUPP PR SCH (15:30)
--- NOTE | 2024-06-16 17:43 | Hospitalist Progress Note ---
Date of Service June 16, 2024 Assessment & Plan (1) Sacral wound: Plan: Patient with ongoing sacral wound for 'years', referred by wound care 06/14 for debridement of enlarging sacral decubitus ulcer Was on IV gentamicin prior to admission- 4 different bacteria growing out of wound-requested outside cultures to be sent here through [facility] from [facility] Hx of MRSA in urine No evidence of sepsis but had mild leukocytosis on admission Chronically immune suppressed on prednisone and MTX for skin condition-HOLD MTX until wound healed CT pelvis w/ interval development of right ischial wound with underlying bony erosion concerning for osteomyelitis, left-sided skin thickening seen concerning for cellulitis Now s/p surgical debridement with Dr. Flanagan on 06/15, bone bx taken, cultures taken Follow BCxs-NGTD Wound culture intraoperatively-pinpoint growth Continue meropenem and daptomycin Empirically for now Wound care consulted For possible wound VAC placement but this may not be possible as wound is sutured closed Appreciate infectious disease consultation-will need 6 weeks IV abx Continue to offload pressure and frequent repositioning (2) Osteomyelitis: Plan: see above (3) Anemia: Plan: Appears chronic ,Hgb baseline, 10-11.4 iron panel c/w chronic disease, perhaps some iron deficiency B12, and folate normal continue home iron supplement (4) Neurogenic bladder: Plan: History of neurogenic bladder managed with SP tube SP tube in place Continue tamsulosin, methenamine, and oxybutynin (5) Diabetes: Plan: Stated that he discontinued metformin and insulin over the summer after 94 lb weight loss Monitor glucose on daily BMP Heart healthy diet A1C here 6.6%-up from previous probably due to increase in prednisone back to 5mg dose from 2.5mg a few months ago (6) Tobacco chew use: Plan: nicotine patch Plan Chronic stable diagnoses: quadriplegia - supportive care, frequent repositioning 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 (verified with patient), but hold MTX for sacral OM HTN - Blood pressure meds were held for surgery in case of hypotension but now blood pressure is elevated-resume home lisinopril and hydralazine HLD - Continue to hold statin with daptomycin use VTE ppx: SCDs; add Lovenox Code status: Full Dispo: continued stay med surg , Will need PICC line and determination of which IV antibiotics and discussion with penitentiary as to availability of antibiotics prior to discharge-Likely will not discharge back to [facility] until Thursday Admission and Anticipated Discharge Date Admission Date: June 14, 2024 Subjective Patient feeling well, still has not moved his bowels after suppository earlier today. No chest pain or shortness of breath. No nausea. No headache. Physical Exam Constitutional: WD/WN, vitals as above Respiratory: normal respiratory effort, lungs clear to auscultation Cardiovascular: RRR, no murmur, no edema Gastrointestinal (Abdomen): normal bowel sounds, soft, nontender, no hepatosplenomegaly Skin: + rash (multiple small macular pink scal y lesions all over) Neurologic: + focal motor deficit (BLEs flaccid, dis didi UEs 2/5 strength); not confused Psychiatric: A+Ox3, euthymic affect Results & Data Results & Data Vital Signs (Past 12 Hours) Vital Signs Temp Pulse Resp BP Pulse Ox O2 Del Method 06/16/24 14:41 36.8 C 72 16 175/81 H 98 Room Air 06/16/24 09:15 Room Air 06/16/24 08:49 36.6 C 79 16 123/71 98 Room Air Laboratory Results CBC, BMP, blood cultures, wound culture pathology reviewed PG Care Time/CCT Total # of Minutes Spent Total Time Spent with Patient: Total time spent is greater than 50% in coordination of care (as documented) at patient's floor/unit and/or counseling patient: Coding Level of Care Code 61524 SUB INP/OBS CARE 2/35MIN Diagnoses Sacral wound S31.000A Encounter type: initial encounter Osteomyelitis of other site, unspecified type M86.9 Osteomyelitis location: other site Osteomyelitis type: unspecified type Anemia D64.9 Neurogenic bladder N31.9 Diabetes E11.9 Tobacco chew use Z72.0 (1) Sacral wound Encounter type: initial encounter Qualified Code(s): S31.000A - Unspecified open wound of lower back and pelvis without penetration into retroperitoneum, initial encounter (2) Osteomyelitis Osteomyelitis location: other site Osteomyelitis type: unspecified type Qualified Code(s): M86.9 - Osteomyelitis, unspecified
[2024-06-16] MEDS: bisacodyL 10 MG SUPP PR STA (18:41)
[2024-06-16] MEDS: ENOXAPARIN INJ 40 MG/0.4 ML SYR SQ SCH (19:18)
[2024-06-17 08:24] LABS: BUN Creatinine Ratio 42.9 (10-20); Calcium 8.6 mg/dl (8.6-10.3); Creatinine Clr Calc Pharmacy 268.6 ml/min; Potassium 3.9 mmol/L (3.5-5.1)
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
[2024-06-17 08:35] LABS: Basophils # (auto) 0.03 K/uL (0.00-0.20); Basophils % (auto) 0.3 %; Eosinophils # (auto) 0.49 K/uL (0.00-0.50); Eosinophils % (auto) 4.8 %; Hematocrit (blood only) 31.2 % (42.0-52.0); Hemoglobin 10.1 g/dl (14.0-18.0); Immature Granulocytes # (auto) 0.04 K/uL (0.01-0.20); Immature Granulocytes % (auto) 0.4 %; Lymphocytes # (auto) 1.17 K/uL (1.20-3.40); Lymphocytes % (auto) 11.4 %; Mean Corpuscular Hemoglobin 28.2 pg (25.0-34.0); Mean Corpuscular Hgb Conc 32.4 g/dL (32.0-36.0); Mean Corpuscular Volume 87.2 fL (80.0-100.0); Mean Platelet Volume 10.2 fL (9.4-12.4); Monocytes # (auto) 1.13 K/uL (0.11-0.59); Neutrophils # (auto) 7.39 K/uL (1.40-6.50); Neutrophils % (auto) 72.1 %; Platelet Count 392 K/uL (130-400); RDW Coefficient of Variation 15.4 % (11.5-14.5); RDW Standard Deviation 48.9 fL (36.4-46.3); Red Blood Count 3.58 M/uL (4.70-6.10); White Blood Count 10.25 K/ul (4.8-10.8)
[2024-06-17] MEDS ORDERED: metHOTREXate sodium 2.5 MG TAB PO SCH (09:00)
--- NOTE | 2024-06-17 10:41 | Surgery Progress Note ---
Date of Service June 17, 2024 Assessment & Plan (1) Decubitus ulcer of right ischium, stage 4: Plan: The sutures and the packing were not removed yesterday as stated in the physical the area was irrigated with 35 cc of saline between each suture and repacked individual suture this morning and removed the sutures that were holding the the packing the wound were all removed and the individual new packing that was placed with relief suture The wound was quite clean there was no odor there is no bleeding we repacked the wound with some 4 x 4 gauze and applied OpSite with the anticipation of hopefully today but the wound nurse will apply the VAC system as we have discussed with her prior to surgery The medical service would like for the patient to be here until the beginning of the week for final cultures of the wound including the cultures of the ischial bones are finalized Plan Hopefully the bag system will be placed on the wound today All questions that the patient had were answered Infectious disease consultation noted including antibiotic management at this time Admission and Anticipated Discharge Date Admission Date: June 14, 2024 Subjective Voices no complaints Physical Exam Physical Exam: Alert coherent no distress Patient left lateral position the right right ischial stage IV decubitus ulceration sites that had been previously debrided yesterday was inspected There is no evidence of any extension of the erythema that he had around and inferior to the decubiti there is no crepitation Of note the sutures holding the packing deep in the wound was still intact and there is packing between individual suture that was placed by the wound Results & Data Vital Signs (Past 12 Hours) Vital Signs Temp Pulse Resp BP Pulse Ox O2 Del Method 06/17/24 07:59 36.8 C 86 18 115/73 96 Room Air Laboratory Results Noted hemoglobin 10.1 Preoperatively and ranged from 10.2-10.4 WBCs 10.25 normal range with left shift 7.39 Preoperatively ranging from 14.78-11.69 with left shift to size 12.47
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
[2024-06-17] MEDS: cefTRIAXone SODIUM 2,000 MG/50 ML BAG IV SCH (15:18)
[2024-06-17] MEDS: metroNIDAZOLE 500 MG TAB PO SCH (20:04)
--- NOTE | 2024-06-18 09:21 | Hospitalist Progress Note ---
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 Flanagan on 06/15, bone bx taken, cultures taken Follow BCxs-NGTD Wound culture intraoperatively - bacteriodes fragilis Appreciate infectious disease consultation-will need 6 weeks IV abx of ceftriaxone, 2 weeks of metronidazole Continue to offload pressure and frequent repositioning (2) Osteomyelitis: Plan: see above (3) Anemia: Plan: Appears chronic ,Hgb baseline, 10-11.4 iron panel c/w chronic disease, perhaps some iron deficiency B12, and folate normal continue home iron supplement (4) Neurogenic bladder: Plan: History of neurogenic bladder managed with SP tube SP tube in place Continue tamsulosin, methenamine, and oxybutynin (5) Diabetes: Plan: Stated that he discontinued metformin and insulin over the summer after 94 lb weight loss Monitor glucose on daily BMP Heart healthy diet A1C here 6.6%-up from previous probably due to increase in prednisone back to 5mg dose from 2.5mg a few months ago (6) Tobacco chew use: Plan: nicotine patch Plan Chronic stable diagnoses: quadriplegia - supportive care, frequent repositioning 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 (verified with patient), but hold MTX for sacral OM HTN - Blood pressure meds were held for surgery in case of hypotension but now blood pressure is elevated-resume home lisinopril and hydralazine HLD - Continue to hold statin with daptomycin use VTE Prophylaxis - Lovenox 40mg SQ daily Diet - regular Code status: Full Disposition: continued stay med surg , Will need PICC line and determination of which IV antibiotics and discussion with [facility] as to availability of antibiotics prior to discharge-Likely will not discharge back to [facility] until Thursday Admission and Anticipated Discharge Date Admission Date: June 14, 2024 Subjective x2 BM yesterday. No acute concerns or questions. Wound vac now in place. Review of Systems Review of Systems: All systems reviewed & are unremarkable except as noted in HPI & below Physical Exam Constitutional: well developed and well nourished; no acute distress Results & Data Results & Data Vital Signs (Past 12 Hours) Vital Signs Temp Pulse Resp BP Pulse Ox O2 Del Method 06/18/24 07:48 36.6 C 65 18 132/76 98 Room Air PG Care Time/CCT Total # of Minutes Spent Total Time Spent with Patient: Total time spent is greater than 50% in coordination of care (as documented) at patient's floor/unit and/or counseling patient: Coding Level of Care Code 02662 SUB INP/OBS CARE 07/23MIN Diagnoses Sacral wound S31.000A Encounter type: initial encounter Osteomyelitis of other site, unspecified type M86.9 Osteomyelitis location: other site Osteomyelitis type: unspecified type Anemia D64.9 Neurogenic bladder N31.9 Diabetes E11.9 Tobacco chew use Z72.0 (1) Sacral wound Encounter type: initial encounter Qualified Code(s): S31.000A - Unspecified open wound of lower back and pelvis without penetration into retroperitoneum, initial encounter (2) Osteomyelitis Osteomyelitis location: other site Osteomyelitis type: unspecified type Qualified Code(s): M86.9 - Osteomyelitis, unspecified
[2024-06-18] MEDS: ADVANCED PROBIOTIC 625 MG CAPSULE PO SCH (18:08)
--- NOTE | 2024-06-19 11:20 | Hospitalist Progress Note ---
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 Flanagan on 06/15, bone bx taken, cultures taken Follow BCxs-NGTD Wound culture intraoperatively - bacteriodes fragilis Appreciate infectious disease consultation-will need 6 weeks IV abx of ceftriaxone, 2 weeks of metronidazole Continue to offload pressure and frequent repositioning (2) Osteomyelitis: Plan: see above (3) Anemia: Plan: Appears chronic ,Hgb baseline, 10-11.4 iron panel c/w chronic disease, perhaps some iron deficiency B12, and folate normal continue home iron supplement (4) Neurogenic bladder: Plan: History of neurogenic bladder managed with SP tube SP tube in place Continue tamsulosin, methenamine, and oxybutynin (5) Diabetes: Plan: Stated that he discontinued metformin and insulin over the summer after 94 lb weight loss Monitor glucose on daily BMP Heart healthy diet A1C here 6.6%-up from previous probably due to increase in prednisone back to 5mg dose from 2.5mg a few months ago (6) Tobacco chew use: Plan: nicotine patch (7) Pemphigus foliaceus: Plan: Start triamcinolone 0.1% cream BID Plan Chronic stable diagnoses: Quadriplegia - supportive care, frequent repositioning Pemphigus foliaceus - continue 5mg prednisone daily (verified with patient), but hold MTX for sacral OM HTN - Blood pressure meds were held for surgery in case of hypotension but now blood pressure is elevated-resume home lisinopril and hydralazine HLD - Continue to hold statin with daptomycin use VTE Prophylaxis - Lovenox 40mg SQ daily Diet - regular Code status: Full Disposition: continued stay med/surg, back to [facility] planned tomorrow as long as wound VAC equipment and antibiotics in place Admission and Anticipated Discharge Date Admission Date: June 14, 2024 Subjective No concern with bowel movements. Doing generally well. Wound VAC in place. Notes starting to get pemphigus lesions on abdomen which is not unusual for him and usually uses triamcinolone cream. Review of Systems Review of Systems: All systems reviewed & are unremarkable except as noted in HPI & below Physical Exam Constitutional: well developed and well nourished; no acute distress Respiratory: normal respiratory effort, lungs clear to auscultation Cardiovascular: RRR, no murmur, no edema Gastrointestinal (Abdomen): Percussion/Palpation: abdomen soft; abdomen nontender Skin: erythematous macular rash on abdomen Results & Data Results & Data Vital Signs (Past 12 Hours) Vital Signs Temp Pulse Resp BP Pulse Ox O2 Del Method 06/19/24 09:25 152/84 H 06/19/24 07:07 36.6 C 83 18 96/64 L 98 Room Air PG Care Time/CCT Total # of Minutes Spent Total Time Spent with Patient: Total time spent is greater than 50% in coordination of care (as documented) at patient's floor/unit and/or counseling patient: Coding Level of Care Code 10328 SUB INP/OBS CARE 2/35MIN Diagnoses Sacral wound S31.000A Encounter type: initial encounter Osteomyelitis of other site, unspecified type M86.9 Osteomyelitis location: other site Osteomyelitis type: unspecified type Anemia D64.9 Neurogenic bladder N31.9 Diabetes E11.9 Tobacco chew use Z72.0 Pemphigus foliaceus L10.2 (1) Sacral wound Encounter type: initial encounter Qualified Code(s): S31.000A - Unspecified open wound of lower back and pelvis without penetration into retroperitoneum, initial encounter (2) Osteomyelitis Osteomyelitis location: other site Osteomyelitis type: unspecified type Qu alified Code(s): M86.9 - Osteomyelitis, unspecified
[2024-06-19] MEDS: TRIAMCINOLONE ACET 0.1% CR 80 GM TUBE EXT SCH (17:34)
[2024-06-20 07:18] LABS: Basophils # (auto) 0.04 K/uL (0.00-0.20); Basophils % (auto) 0.4 %; Eosinophils # (auto) 0.81 K/uL (0.00-0.50); Eosinophils % (auto) 9.1 %; Hematocrit (blood only) 33.3 % (42.0-52.0); Hemoglobin 10.7 g/dl (14.0-18.0); Immature Granulocytes # (auto) 0.05 K/uL (0.01-0.20); Immature Granulocytes % (auto) 0.6 %; Lymphocytes # (auto) 1.65 K/uL (1.20-3.40); Lymphocytes % (auto) 18.5 %; Mean Corpuscular Hemoglobin 27.9 pg (25.0-34.0); Mean Corpuscular Hgb Conc 32.1 g/dL (32.0-36.0); Mean Corpuscular Volume 86.9 fL (80.0-100.0); Monocytes # (auto) 0.64 K/uL (0.11-0.59); Monocytes % (auto) 7.2 %; Neutrophils # (auto) 5.74 K/uL (1.40-6.50); Neutrophils % (auto) 64.2 %; Platelet Count 433 K/uL (130-400); RDW Coefficient of Variation 15.4 % (11.5-14.5); RDW Standard Deviation 48.5 fL (36.4-46.3); Red Blood Count 3.83 M/uL (4.70-6.10); White Blood Count 8.93 K/ul (4.8-10.8)
[2024-06-20 07:30] LABS: Albumin Level 3.2 gm/dl (3.4-5.0); Bilirubin,Total 0.3 mg/dl (0.2-1.0); C Reactive Protein 3.38 mg/dl (0-0.5); Creatinine Clr Calc Pharmacy 276.5 ml/min; Globulin 3.3 gm/dl (2.5-4.0); Potassium 4.2 mmol/L (3.5-5.1); Total Protein 6.5 gm/dl (6.0-8.3)
--- NOTE | 2024-06-20 08:57 | Hospitalist Progress Note ---
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 Flanagan on 06/15, bone bx taken, cultures taken Follow BCxs-NGTD Wound culture intraoperatively - bacteroides fragilis Appreciate infectious disease consultation-will need 6 weeks IV abx of ceftriaxone, 2 weeks of metronidazole Continue to offload pressure and frequent repositioning localized bleeding controlled 06/20 however wound vac off currently (2) Anemia: Plan: Appears chronic ,Hgb baseline, 10-11.4 iron panel c/w chronic disease, perhaps some iron deficiency B12, and folate normal continue home iron supplement (3) Neurogenic bladder: Plan: History of neurogenic bladder managed with SP tube SP tube in place, attempts to re position 06/20 Continue tamsulosin, methenamine, and oxybutynin (4) Diabetes: Plan: Stated that he discontinued metformin and insulin over the summer after 94 lb weight loss Monitor glucose on daily BMP Heart healthy diet A1C here 6.6%-up from previous probably due to increase in prednisone back to 5mg dose from 2.5mg a few months ago (5) Tobacco chew use: Plan: nicotine patch (6) Pemphigus foliaceus: Plan: Start triamcinolone 0.1% cream BID hold methotrexate till healed Plan Chronic stable diagnoses: Quadriplegia - supportive care, frequent repositioning Pemphigus foliaceus - continue 5mg prednisone daily (verified with patient), but hold MTX for sacral OM HTN - Blood pressure meds were held for surgery in case of hypotension but now blood pressure is elevated-resume home lisinopril and hydralazine HLD - Continue to hold statin with daptomycin use VTE Prophylaxis - Lovenox 40mg SQ daily Diet - regular Code status: Full Disposition: continued stay med/surg, back to [facility] planned tomorrow as long as wound VAC equipment and antibiotics in place Admission and Anticipated Discharge Date Admission Date: June 14, 2024 Subjective Patient has no complaints and issues today with wound dressing change patient had arterial bleeding site controlled with pressure wound VAC not reapplied Later in the evening patient had issues with suprapubic catheter becoming blocked with urine coming out around the suprapubic catheter will attempt to change being trained nursing staff Overall patient looking forward to returning to his senior care facility which she resides with wound VAC and antibiotics for treatment of an infection Physical Exam Physical Exam: Patient with movement of his arms although weakened he is without distress Results & Data Results & Data Laboratory Results review cbc review chemistry PG Care Time/CCT Total # of Minutes Spent Total Time Spent with Patient: Total time spent is greater than 50% in coordination of care (as documented) at patient's floor/unit and/or counseling patient: Coding Level of Care Code 94164 SUB INP/OBS CARE 3/50MIN Diagnoses Sacral wound S31.000A Encounter type: initial encounter Anemia D64.9 Neurogenic bladder N31.9 Diabetes E11.9 Tobacco chew use Z72.0 Pemphigus foliaceus L10.2 (1) Sacral wound Encounter type: initial encounter Qualified Code(s): S31.000A - Unspecified open wound of lower back and pelvis without penetration into retroperitoneum, initial encounter
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
[2024-06-22] MEDS: DOCUSATE SODIUM 100 MG CAP PO PRN (21:50)
[2024-06-23 07:16] VITALS: BP 91/55; PULSE 62; RESP 16; TEMP 97.2; O2SAT 98
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
--- NOTE | 2024-06-23 14:34 | Urology Consultation ---
<Statement entered by Cecil Maldonado MD - 06/23/24 15:36> 54 yo male with neurogenic bladder managed with SP tube, having some leaking around the catheter. Reasonable to continue oxybutynin. Continue antibiotics for now. Unfortunately, upsizing the catheter will likely not improve leaking around it due to bladder spasms. Since current catheter is draining well, would maintain in position for now. Date of Consultation June 23, 2024 Assessment & Plan (1) Neurogenic bladder: Plan 54yo/M with PMH of quadriplegia and neurogenic bladder managed with suprapubic catheter who is admitted with sacral wound. Urology was consulted for suprapubic catheter leakage Suprapubic catheter was exchanged on 06/20 by nursing staff Catheter is currently intact and draining clear yellow urine with approximately 500ml in drainage bag. No leakage was noted at time of exam. Given the intermittent leakage, suspect it may be secondary to bladder spasms. There is no indication to exchange the catheter at this time since it was recently exchanged and appears to be functioning appropriately at present. Unfortunately, upsizing the catheter will likely not resolve the issue. Would recommend continuing oxybutynin for bladder spasms. Monitor urine output. Can flush the catheter as needed. Urology will sign-off. Please call with any further questions or concerns. History of Present Illness Attending Physician: Geovanni Salazar MD History of Present Illness 54-year-old male who is admitted with a sacral wound now s/p debridement and bone marrow biopsy on June 15. Urology has been consulted for suprapubic catheter leakage. Patient with a hx of neurogenic bladder managed with chronic suprapubic catheter. He reports intermittent leakage around suprapubic catheter site. He reports a recent increase in leakage. He currently has a [address] [place] [address] catheter in place. The catheter was exchanged by nursing staff on 06/20. Catheter is currently intact and draining clear yellow urine. No leakage noted at time of exam. He is on tamsulosin, methenamine, oxybutynin. Allergies Allergy/AdvReac Type Severity Reaction Status Date / Time Sulfa (Sulfonamide Allergy Severe Swelling Verified 06/14/24 08:14 Antibiotics) of Lip/Tongue/Throat piperacillin [From Zosyn] Allergy Intermediate Rash Verified 06/14/24 08:14 tazobactam [From Zosyn] Allergy Intermediate Rash Verified 06/14/24 08:14 Home Medications Medication Instructions Recorded Confirmed Type baclofen 10 mg tablet See Rx Instructions .Route .COMPLEX 05/11/18 06/14/24 History folic acid 1 mg tablet 1 mg PO DAILY 05/11/18 06/14/24 History oxybutynin chloride 5 mg tablet 5 mg PO TID 05/11/18 06/14/24 History methenamine hippurate 1 gram tablet 1 g PO BID 11/05/20 06/14/24 History atorvastatin 20 mg tablet 20 mg PO HS 08/27/21 06/14/24 History aluminum-mag hydroxide-simethicone 30 ml PO Q6H PRN 09/02/22 06/14/24 History 200 mg-200 mg-20 mg/5 mL oral susp dyspepsia,indigestion bisacodyl 10 mg rectal suppository 20 mg LA Q OTHER DAY 09/02/22 06/14/24 History (Dulcolax (bisacodyl)) magnesium oxide 400 mg (241.3 mg 400 mg PO BID 09/02/22 06/14/24 History magnesium) tablet multivitamin 1 tab PO DAILY 09/02/22 06/14/24 History polyethylene glycol 3350 17 17 g PO HS 09/02/22 06/14/24 History gram/dose oral powder (Miralax) ascorbic acid (vitamin C) 500 mg 500 mg PO DAILY 05/11/23 06/14/24 History tablet ferrous sulfate 325 mg (65 mg 325 mg PO DAILY 05/11/23 06/14/24 History iron) tablet tamsulosin 0.4 mg capsule 0.4 mg PO HS 05/11/23 06/14/24 History acetaminophen 325 mg tablet 650 mg PO Q4H PRN Pain 05/12/23 06/14/24 History clotrimazole-betamethasone 1 1 applic topical BID 05/12/23 06/14/24 History %-0.05 % topical cream bisacodyl 10 mg rectal suppository 10 mg LA DAILY PRN Constipation 06/17/23 06/14/24 History (Dulcolax (bisacodyl)) ketoconazole 2 % topical cream 1 applic topical 3XWK 06/17/23 06/14/24 History magnesium hydroxide 400 mg/5 mL 2,400 mg PO UD PRN Constipation 06/17/23 06/14/24 History oral suspension (Milk of Magnesia) methotrexate sodium 2.5 mg tablet 15 mg PO Q7D 06/17/23 06/14/24 History sodium phosphates 19 gram-7 118 ml LA UD PRN Constipation 06/17/23 06/14/24 History gram/118 mL enema (Fleet Enema) Saccharomyces boulardii 250 mg 250 mg PO DAILY 06/14/24 06/14/24 History capsule acetaminophen 325 mg tablet 650 mg PO Q6H PRN Fever 06/14/24 06/14/24 History arginine-vitamin C-vitamin E oral See Rx Instructions .Route .COMPLEX 06/14/24 06/14/24 History 4.5 gram-156 mg/9.2 gram powder pkt (Arginaid) baclofen 20 mg tablet See Rx Instructions .Route .COMPLEX 06/14/24 06/14/24 History clobetasol 0.05 % topical cream 1 applic topical Q12H PRN 06/14/24 06/14/24 History Dermatitis ergocalciferol (vitamin D2) 1,250 1,250 mcg PO WK 06/14/24 06/14/24 History mcg (50,000 unit) capsule hydralazine 25 mg tablet 25 mg PO TID 06/14/24 06/14/24 History lisinopril 10 mg tablet 10 mg PO DAILY 06/14/24 06/14/24 History prednisone 5 mg tablet 5 mg PO DAILY 06/14/24 06/14/24 History sodium hypochlorite 0.25 % 1 applic topical DAILY Wound 06/14/24 06/14/24 History solution (Dakin's Solution) care/[place] area triamcinolone acetonide 0.1 % 1 applic topical BID 06/14/24 06/14/24 History topical cream zinc gluconate 50 mg tablet 50 mg PO DAILY 06/14/24 06/14/24 History ceftriaxone 2 gram solution for 2 g IV DAILY #36 ea 06/20/24 Rx injection metronidazole 500 mg tablet 500 mg PO BID 8 days #16 tabs 06/20/24 Rx Patient History Medical History (Updated 06/15/24 @ 19:53 by Michelle Waldron DO) Other specified disorders of bone density and structure, multiple sites Fatty (change of) liver, not elsewhere classified snf current use of oral hypoglycemic drug Neurogenic bowel Pityriasis versicolor Tinea unguium Hypomagnesemia Hx of constipation GERD (gastroesophageal reflux disease) Catheter-associated urinary tract infection hx Morbid obesity with BMI of 40.0-44.9, adult 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 coli infection Hyponatremia Lactic acidosis hx Headache Recurrent UTI (urinary tract infection) Nephrolithiasis Bladder stone Osteomyelitis Quadriplegia Hypertension Suprapubic catheter Surgical History (Updated 06/15/24 @ 15:46 by Radha Veliz RN) S/P debridement (06/15/24) Debridement sacral ulcer, skin, subcutaneal tissue and biopsy of ischium(Not Applicable) - Naeem Flanagan MD, FACS S/P cystoscopy w/retrograde pyelogram History of hip surgery History of suprapubic catheter Family History Mother Cancer Father Diabetes Grandfather Diabetes Social History Smoking Status: Never smoker Hx Alcohol Use: No Hx Substance Use: No Preferred Language: Polish Communication Ability: Effective Visual Impairment: No Limitations Hearing Ability: Normal Phlebotomy Technologist Required: No Beliefs That Will Affect Care: None marital status: Life Partner Current Living Situation: Personal Care Facility Current Living Situation Comment: [facility] How many Children do You have: 0 Feels Safe at Home: Yes Diet: regular caffeine: Yes during the past year weight has: decreased > 10 lbs Assistive Devices: None Review of Systems Review of Systems: All systems reviewed & are unremarkable except as noted in HPI & below Physical Exam Constitutional: no acute distress Respiratory: no respiratory distress and no labored breathing Neurologic: awake Psychiatric: A+Ox3, euthymic affect Genitourinary: Suprapubic catheter intact, draining clear yellow urine. No leakage around site noted at time of exam. Results & Data Vital Signs (Past 12 Hours) Vital Signs Temp Pulse Resp BP Pulse Ox O2 Del Method 06/23/24 07:15 36.2 C L 62 16 91/55 L 98 Room Air PG Care Time/CCT Total # of Minutes Spent Total Time Spent with Patient: Total time spent is greater than 50% in coordination of care (as documented) at patient's floor/unit and/or counseling patient: Coding Level of Care Code 51536 IN/OBS CONSULT LVL 3,45M Diagnoses Neurogenic bladder N31.9
== END 2024-06-23 16:15 | DRG 570 ==
LOC: ED 10:07 → EDINP 12:23 → SUATTDRO 12:23 → 3W 16:17